=== PATIENT | female | born 1975 | race Caucasian/White ===

== ENCOUNTER → 2017-08-27 12:41 | Outpatient (CLI) | payer OTHER, SELFPAY ==
--- NOTE | 2017-08-27 | US_ITS ---
US kidney retroperitoneal comp HISTORY: ITS.REASON: hypertension ORDERING PHYSICIAN: Smith Santana MD PATIENT AGE: 42 years Comparison: None FINDINGS: RIGHT KIDNEY:Unremarkable. Normal size and echogenicity. No hydronephrosis LEFT KIDNEY:Unremarkable. No hydronephrosis. Normal size and echogenicity. OTHER FINDINGS: No other pertinent findings IMPRESSION: Negative bilateral renal ultrasound
== END ==
PROVIDERS: Family Provider Family Medicine; PCP Family Medicine; Visit Provider Internal Medicine
DX: I10 Essential (primary) hypertension (principal)
CPT/HCPCS: 76770

== ENCOUNTER 2019-10-26 16:51 | Observation (INO) | payer MEDICAID, SELFPAY ==
[2019-10-26 17:19] VITALS: BMI 51.6
[2019-10-26 18:23] VITALS: BP 210/120
[2019-10-26 18:38] LABS: MANUAL DIFFERENTIAL MANUAL DIFFERENTIAL (MANUAL DIFF)
[2019-10-26 18:41] LABS: Basophils % 0.3 % (0.1-2.0); Eosinophils # 0.2 K/mm3 (0.0-0.4); Eosinophils % 2.4 % (0.1-12.0); Hemoglobin 14.1 g/dL (12.2-16.2); Lymphocytes # 1.5 K/mm3 (0.7-4.5); Lymphocytes % 16.8 % (10-50); Mean Corpuscular HGB Conc 34.4 g/dL (31.8-35.4); Mean Corpuscular Hemoglobin 29.4 pg (27.0-31.2); Mean Corpuscular Volume 85.5 fl (81-99); Mean Platelet Volume 7.9 fl (7.4-10.4); Monocytes # 0.3 K/mm3 (0.1-1.0); Monocytes % 3.3 % (1.7-9.3); Neutrophils # 6.7 K/mm3 (1.8-7.8); Platelet Count 246 K/mm3 (142-424); Red Cell Distribution Width 15.2 % (11.5-17.5); White Blood Count 8.7 K/mm3 (4.8-10.8)
[2019-10-26 18:45] LABS: Blood Urea Nitrogen 11 mg/dl (7-17); Calcium 9.5 mg/dl (8.4-10.2); Carbon Dioxide 24 mmol/L (22.0-30.0); Chloride 99 mmol/L (98-107); Creatinine Clearance Estimated 138 mL/min (50-200); Estimated Glomerular Filt Rate 133 ml/min (>60); GFR (African American) 161 ML/MIN (>60); Sodium 136 mmol/L (136-145)
[2019-10-26 19:02] LABS: Glucose 417 mg/dl (74-100)
--- NOTE | 2019-10-26 19:02 | ECG_ITS ---
APPROVED REPORT Exam: Resting ECG HR:99 bpm ECG Measurements Heart Rate 99 AXES MD 162 P 46 QRSd 80 QRS -3 QT 364 T 21 QTc 467 <Conclusion> Normal sinus rhythm Normal ECG Electronically signed by : Jude Betancur, 10/28/2019 06:43:07
[2019-10-26 19:17] LABS: Thyroid Stimulating Hormone 1.19 uIU/mL (0.465-4.68)
[2019-10-26 19:21] LABS: Hemoglobin A1C 10.8 % (4.0-6.0)
[2019-10-26 19:44] VITALS: BP 180/93; PULSE 99; RESP 17; TEMP 37.1; O2SAT 94
[2019-10-26 20:00] VITALS: BP 188/93
[2019-10-26 20:05] LABS: Lymphocytes % 19 % (10-50); Monocytes % 6 % (2-9); Neutrophils % 75 % (42-76); Platelet Estimate Normal; RBC Morphology Normal; Total Cells Counted 100
--- NOTE | 2019-10-26 20:25 | HMH.HP ---
*Admission Date: 10/26/19 *Chief complaint: hypertension with headache *History of present illness: Patient is a 44-year-old white female, well-known to me. She has a longstanding history of diabetes, hypertension. In the office her pressure was 230/120, confirmed on repeat. She had been to an emergency room about a week prior, pressure was in the 230s on that occasion. It is unclear whether she is current with medication refills, certainly several have lapsed including lisinopril and hydralazine. Patient underwent cardiac cath in July 2017. Results are as follows: ANGIOGRAPHIC RESULTS: 1. The left main artery normal 2. The left anterior descending artery normal 3. The circumflex artery dominant normal 4. The right coronary artery nondominant normal 5. The ROSA ventriculogram reveals normal 65% 6. The left ventricular end-diastolic pressure 20 mmHg 7. Right renal artery singular and normal 8. Left renal artery singular and normal IMPRESSION: 1. Normal coronary arteries 2. Normal ejection fraction 3. Elevated LVEDP consistent with diastolic dysfunction and hypertensive heart disease 4. Normal renal arteries Clara reports a dull constant headache, no suggestion of TIA or CVA. Clara also has poorly controlled diabetes, she is somewhat unclear about her insulin regimen. She has been on concentrated insulin in the past, is currently using a basal insulin with episodic bolus coverage. She is following no strict criteria for this. 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 As result of this neuropathy she developed a significant foot ulcer on the left. Became infected and required for IV antibiotics, surgical debridement, amputation of the fifth toe, and a prolonged postoperative course. He remains in a walking boot. [facility] History Medical History: Reports:: Depression, Diabetes Mellitus Type 2, Gastroesophageal Reflux Disease(GERD), Home Oxygen, Hyperlipidemia, Hypertension Denies:: Cancer, Internal Pacemaker, MRSA, Seizures *Have you ever received a pneumonia vaccine?: No *Have you received a flu vaccine this season?: Yes Other Surgeries: Yes: Appendectomy (GB & Appendix), Cardiac Catheterization, Cholecystectomy, (x2), Hernia Repair (x3), Hysterectomy-Total. No: Pacemaker Amputation: No Fractures: Yes - *Social History Smoking Status: Former smoker Tobacco Type: cigars Alcohol Intake: current Alcohol Intake Frequency:: holidays/special occasions only Substance Use Type: denies use *Occupational Status:: disabled Housing: house Household Members: spouse, family *Travel in the last 8 weeks: None - Psychiatric History Pschychiatric History:: Reports:: Depression Family Hx:: Diabetes, Hyperlipidemia Review of Systems - Constitutional Reports fatigue, Reports lack of energy, Reports malaise, Reports weakness, Reports weight gain - Eyes Reports blurry vision, Reports change in vision - ENT Reports poor balance, Reports dizziness, Reports headache(s) - *Cardiovascular Reports shortness of breath with activity, Reports leg swelling, Reports leg sores, Denies chest pain, Denies chest pain at rest - *Respiratory Reports shortness of breath with activity, Denies change in phlegm color, Denies wheezing - *Gastrointestinal Reports abdominal pain, Reports bloating, Reports nausea - *Genitourinary Reports dribbling after urination - *Musculoskeletal Reports abnormal walking, Reports joint swelling, Reports numbness, Reports stiffness - Integumentary/Breasts Reports acne, Reports skin ulcer - *Neurologic Reports seizure-like activity, Reports headache(s), Reports sensory deficit, Reports tingling, Reports weakness, Denies localized weakness - Psychiatric Reports lack of enjoyment, Reports depression, Reports difficulty concentrating, Reports irritability - Endocrine Reports increased thirst Me
[2019-10-26 20:45] VITALS: BP 188/93
--- NOTE | 2019-10-26 20:48 | XR_ITS ---
PROCEDURE: XR FOOT LT MIN 3V CLINICAL INDICATION: evaluate for osteomyelitis Pain and swelling, redness COMPARISON: No exams were available for comparison FINDINGS: Status post amputation at the mid shaft of the 5th metatarsal. There are osteoarthritic changes of the midfoot. Soft tissue swelling is present along the dorsal aspect the foot at the metatarsal region. Other findings:There are no previous exams available comparison. No bony destructive process evident. There is some faint calcification in the amputation bed IMPRESSION: Status post amputation at the 5th metatarsal with degenerative changes and soft tissue swelling. No bony erosive process apparent Dictated b Channing Seymour MD 10/27/2019 07:50 Channing Seymour MD in [place] 10/27/2019 07:50
[2019-10-26 20:50] VITALS: BP 188/93
[2019-10-26 20:53] LABS: POC Glucose,Bedside 382 (70-110)
[2019-10-26 21:50] VITALS: BP 157/99
[2019-10-27] VITALS: BP 156/79; PULSE 77; RESP 16; TEMP 36.9; O2SAT 97
[2019-10-27 04:00] VITALS: BP 139/77; PULSE 74; RESP 16; TEMP 36.8; O2SAT 99
[2019-10-27 05:08] VITALS: BMI 50.8
[2019-10-27 05:53] LABS: POC Glucose,Bedside 389 (70-110)
--- NOTE | 2019-10-27 07:00 | CA_ITS ---
APPROVED REPORT EXAM: Comprehensive 2D, Doppler, and color-flow Echocardiogram Bail Bond Agent: Dottie Sloan RDCS Ht: 5 ft 6 in Wt: 324lbs BSA: 2.46 BP: 188/93 mmHg Indications: HHD,OBESITY,DM,EX SMOKER 2D Dimensions LVOT 1.91 cm (M/F) 1.5-2.5 M-Mode Dimensions RVDd 2.28 cm (0.9-2.6) LVDd 4.79 cm (3.5-5.7) LVDs 3.04 cm (3.5-5.7) IVSd 1.45 cm (0.6-1.1) PWd 1.03 cm (0.6-1.1) EF (Teich) 66.20% FS 36.50% EDV (Teich) 107.00 mL ESV (Teich) 36.20 mL LV Diastology E/A Ratio 1.27 Mitral Valve MV A Velocity 55.00 (40-130 cm/s) Left Ventricle Left atrium is mildly enlarged, left ventricle is normal size, mild concentric left ventricular hypertrophy, visually estimated ejection fraction 55% with no regional wall motion abnormality, grade 1 diastolic dysfunction seen with tissue Doppler evidence of raise left atrial pressure. Right Ventricle Right atrium and right ventricular mildly enlarged with normal contractility. Aortic Valve Aortic valve is minimally thickened and fibrosed, there is no aortic stenosis or aortic insufficiency. Mitral Valve Mitral valve is grossly normal, there is mild mitral regurgitation. Tricuspid Valve Tricuspid valve grossly normal, there is mild tricuspid regurgitation, tricuspid regurgitation jet velocity is inadequate for calculation of the right ventricular systolic pressure. Pulmonic Valve Pulmonic valve is poorly visualized. Great Vessels Aortic root is normal size. Pericardium No significant pericardial effusion noted. Conclusion 1. Mild biatrial enlargement, normal left ventricular size, mild concentric left ventricular hypertrophy, visually estimated ejection fraction 55% with no regional wall motion abnormality, grade 1 diastolic dysfunction seen with tissue Doppler evidence of raise left atrial pressure. 2. Mildly enlarged right ventricle with normal contractility. 3. Mild mitral and tricuspid regurgitation. 4. No significant pericardial effusion noted. Electronically signed by : Dario Chen, 10/27/2019 16:17:43
[2019-10-27 07:01] LABS: Chloride 99 mmol/L (98-107); Potassium 3.6 mmoL/L (3.5-5.1); Sodium 136 mmol/L (136-145)
[2019-10-27 07:03] LABS: Blood Urea Nitrogen 14 mg/dl (7-17); Creatinine Clearance Estimated 133 mL/min (50-200); Estimated Glomerular Filt Rate 133 ml/min (>60); GFR (African American) 161 ML/MIN (>60)
[2019-10-27 07:04] LABS: Anion Gap 14.6 mEq/L (5-15); Calcium 8.8 mg/dl (8.4-10.2); Carbon Dioxide 26 mmol/L (22.0-30.0); Cholesterol 136 mg/dl (140-200); Glucose 396 mg/dl (74-100); Magnesium 1.8 mg/dl (1.6-2.3); Triglycerides 173 mg/dl (30-150); VLDL Cholesterol 35 mg/dL (0-40)
[2019-10-27 07:05] LABS: Chol/HDL Ratio 3.4 (1-3.5); HDL Cholesterol 40 mg/dl (40-60)
[2019-10-27 07:15] LABS: Direct LDL Cholesterol 62.97 mg/dL (100-129)
--- NOTE | 2019-10-27 07:26 | P.CONPHA_ITS ---
[facility] Pharmacy VTE Monitoring - Patient Demographics Admission date: 10/26/19 Report Date: 10/27/19 Time: 07:26 Allergies/Adverse Reactions: Patient Allergies No Known Allergies Allergy (Verified 10/26/19 15:21) Height: 1.7 m Weight: 146.964 kg Patient Problems: Current Active Problems Hypertensive urgency (Acute) Edema (Acute) - VTE Risk Labs: VTE Related Lab Results Hgb 14.1 g/dL (12.2-16.2) 10/26/19 18:28 Hct 41.0 % (37.0-47.0) 10/26/19 18:28 Plt Count 246 K/mm3 (142-424) 10/26/19 18:28 BUN 14 mg/dl (7-17) D 10/27/19 06:45 Creatinine 0.50 mg/dl (0.52-1.04) L 10/27/19 06:45 Estimated Creat Clear 133 mL/min (50-200) 10/27/19 06:45 Was VTE Risk Assessment Performed: Yes VTE Score: 7 VTE Risk Level: Moderate Risk Clinical Trial Participant: No - Prophylaxis VTE Prophylaxis Ordered?: Yes Types of VTE Prophylaxis: TEDS Knee High
[2019-10-27 07:43] VITALS: BP 149/69; PULSE 78; RESP 22; TEMP 36.8; O2SAT 98
[2019-10-27 11:21] VITALS: BP 199/86; PULSE 89; RESP 22; TEMP 36.9; O2SAT 99
[2019-10-27 11:47] LABS: POC Glucose,Bedside 460 (70-110)
--- NOTE | 2019-10-27 13:48 | HMH.DCSUM ---
General - General Admission date:: 10/26/19 Discharge date: 10/27/19 HPI HPI: Patient is a 44-year-old white female, well-known to me. She has a longstanding history of diabetes, hypertension. In the office her pressure was 230/120, confirmed on repeat. She had been to an emergency room about a week prior, pressure was in the 230s on that occasion. It is unclear whether she is current with medication refills, certainly several have lapsed including lisinopril and hydralazine. Patient underwent cardiac cath in July 2017. Results are as follows: ANGIOGRAPHIC RESULTS: 1. The left main artery normal 2. The left anterior descending artery normal 3. The circumflex artery dominant normal 4. The right coronary artery nondominant normal 5. The ROSA ventriculogram reveals normal 65% 6. The left ventricular end-diastolic pressure 20 mmHg 7. Right renal artery singular and normal 8. Left renal artery singular and normal IMPRESSION: 1. Normal coronary arteries 2. Normal ejection fraction 3. Elevated LVEDP consistent with diastolic dysfunction and hypertensive heart disease 4. Normal renal arteries Clara reports a dull constant headache, no suggestion of TIA or CVA. Clara also has poorly controlled diabetes, she is somewhat unclear about her insulin regimen. She has been on concentrated insulin in the past, is currently using a basal insulin with episodic bolus coverage. She is following no strict criteria for this. 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 As result of this neuropathy she developed a significant foot ulcer on the left. Became infected and required for IV antibiotics, surgical debridement, amputation of the fifth toe, and a prolonged postoperative course. He remains in a walking boot. Hospital Course Hospital Course: Patient was admitted with a markedly elevated pressure, systolic was 230s in the office. She received sequential doses of IV labetalol 20 mg with acceptable pressures resulting. She tolerated this well. She was covered with high intensity sliding scale insulin. We had reinstituted her basal insulin. She underwent cardiac echo, the image quality was poor due to her habitus. She had previously undergone cardiac cath and runoff of the renal arteries in 2018. This data from Dr. Santana was reviewed. She had an x-ray of her left foot. There is no evidence of osteomyelitis. She had some peripheral edema, no suggestion of pulmonary edema. She received 1 dose of IV Lasix with a good urine output. Objective Vital signs: Temp Pulse Resp BP Pulse Ox 98.4 F 89 22 199/86 H 99 10/27/19 11:21 10/27/19 11:21 10/27/19 11:21 10/27/19 11:21 10/27/19 11:21 no acute distress, morbidly obese, chronically ill appearing - *Routine HEENT Exam Head: Present: normocephalic, atraumatic Eye: Present: EOMI, PERRL - *Routine Neck Exam Present: supple, full ROM. Absent: JVD - *Routine Respiratory Exam Present: CTA bilaterally. Absent: accessory muscle use, respiratory distress, rhonchi, wheezes, crackles - *Routine Cardiovascular Exam Present: RRR, Normal S1, Normal S2. Absent: murmur - *Routine Abdominal Exam Present: soft, normoactive bowel sounds, tenderness, obese, hernia, surgical scars. Absent: guarding - *Routine Extremities Exam Present: edema, pulses intact. Absent: cyanosis, clubbing, calf tenderness, palpable cord - *Routine Skin Exam Present: intact. Absent: cyanosis, jaundice, gangrene - *Routine Neurological Exam Present: alert, oriented X3, moving all extremities. Absent: motor deficit, altered mental status - Routine Psychiatric Exam Present: normal affect, cooperative Results Labs on day of discharge: Labs from last 24 hours 10/27/19 10/27/19 10/27/19 11:37 06:45 05:45 WBC RBC Hgb Hct MCV MCH MCHC RD
--- NOTE | 2019-10-27 13:53 | SW/DCPLANNER ---
Addendum entered by Constanza Loaiza 10/27/19 15:46: Emily with [facility] has received referral and called me stating they discharged this patient on 07/22/2019 and they will no longer be able to accept this patient due to the level of care needed. I did explain to Emily that [facility] could not accept due to insurance and Emily again stated they could not accept this patient. I have two voicemails left with [facility] regarding in home services provided. Dr Dean has stated that [facility] provides services to patients for medical management and follow up. I will continue to follow up with [facility] regarding services and if patient is a candidate I will make sure she is established with program. Patient is aware of plan. Placement and outpatient PT services were offered to this patient and refused at this time. Patient will discharge home today. Addendum entered by Constanza Loaiza 10/27/19 14:52: Thomas with [facility] has called me back stating they do not accept this patients insurance. Patient information has now been faxed to [facility]. Original Note: I have spoke with this patient regarding discharge plans. Patient stated that she resides at home with her , daughter and future son in law. Patient stated that she does fairly well at home but does require a walker at home. Patient has a walker and BSC at home. Patient has requested home health services. Patient understands that she must be homebound for these services. Patient stated that she prefers [facility]. Patient information and order will be faxed to [facility]. Patient will discharge later today.
[2019-10-27 14:09] LABS: POC Glucose,Bedside 394 (70-110)
--- NOTE | 2019-10-27 16:17 | HMH.PHAINT ---
DISCHARGE COUNSELING COMPLETED ON PATIENT. NEW PRESCRIPTIONS INCLUDE AMLODIPINE/BENAZEPRIL, TRULICITY, HYDRALAZINE, LANTUS FLEXPEN, AND HYDROCHLOROTHIAZIDE. NEW PRESCRIPTIONS WERE SENT TO [facility]. PATIENT IS TO CONTINUE ALL OTHER HOME MEDICATIONS WITH THE EXCEPTION OF DOXYCYCLINE AND HUMALOG. PATIENT VERBALIZED UNDERSTANDING AND HAD NO QUESTIONS AT THIS TIME. -GIOVANI KOROMA, LUISD
--- NOTE | 2019-10-27 16:49 | PC.NURSE ---
PATIENT A&O X4, LUNGS CLEAR. THIS RN PHONED DR. GONZALEZ TO INFORM HIM OF PATIENTS FSBS AT 460. MD ORDERED 30 UNITS OF INSULIN AND REPEAT FSBS IN 2HRS. NEXT FSBS WAS 394. THIS RN PHONED OFFICE AND REPORTED FINDINGS. NO NEW ORDERS. NO NEW CONCERNS AT THIS TIME.
--- NOTE | 2019-10-28 08:58 | SW/DCPLANNER ---
SPOKE WITH MARY PIMENTEL WITH [facility] THIS MORNING A COUPLE OF TIMES REGARDING A REFERRAL FOR THIS PATIENT: SHE HAS REQUESTED INFORMATION TO BE FAXED SO THEY CAN SEE IF SHE IS A CANDIDATE FOR HOSPICE SERVICES....SHE HAS HAD HOME HEALTH SERVICES BUT HAS BEEN D/C'D AND NOT GOING TO BE READMITTED R/T LEVEL OF CARE.... I HAD A CONVERSATION THIS MORNING WITH DR GONZALEZ AND EXPLAINED TO HIM THAT HOSPICE IS NOT SURE THEY ARE GOING TO BE ABLE TO PICK HER UP EITHER BUT WILL REVIEW HER INFORMATION AND LET ME KNOW... HOSPICE REFERRAL WAS MADE ON HER WHEN SHE LIVED IN [place] BUT WHEN THEY WENT TO EVALUATE AND ADMIT SHE MET THEM AND TOLD THEM SHE DID NOT NEED THEIR SERVICES AT THIS TIME.. WILL LET DR GONZALEZ KNOW ONCE I HEAR BACK FROM [place] TO WHETHER OR NOT THE WILL ACCEPT HER...
[2019-10-29 08:56] LABS: Lithium (Eskalith(R)) <0.1 mmol/L (0.6-1.2)
== END 2019-10-27 16:24 | disposition home or self-care (01) ==
PROVIDERS: Admitting Provider Family Medicine; PCP Family Medicine; Visit Provider Family Medicine
DX: I16.0 Hypertensive urgency (principal); E11.65 Type 2 diabetes mellitus with hyperglycemia; E66.01 Morbid (severe) obesity due to excess calories; Z68.43 Body mass index [BMI] 50.0-59.9, adult; Z79.4 Long term (current) use of insulin; E11.42 Type 2 diabetes mellitus with diabetic polyneuropathy
CPT/HCPCS: 36415; 73630; 80048; 80061; 80178; 82962; 83036; 83735; 84443; 85007; 85014; 85018; 85048; 85049; 93005; 93306; G0378; J2405

== ENCOUNTER → 2019-12-07 09:37 | Outpatient (CLI) | payer MEDICAID, SELFPAY ==
[2019-12-07 10:32] LABS: Chloride 99 mmol/L (98-107); Sodium 138 mmol/L (136-145)
[2019-12-07 10:33] LABS: Potassium 4.7 mmoL/L (3.5-5.1)
[2019-12-07 10:36] LABS: Anion Gap 16.7 mEq/L (5-15); Blood Urea Nitrogen 13 mg/dl (7-17); Calcium 9.8 mg/dl (8.4-10.2); Carbon Dioxide 27 mmol/L (22.0-30.0); Estimated Glomerular Filt Rate 108 ml/min (>60); GFR (African American) 131 ML/MIN (>60); Glucose 325 mg/dl (74-100)
[2019-12-07 10:44] LABS: NT Pro Brain Natriuretic Pep. 117 pg/mL (0-125)
== END ==
PROVIDERS: Visit Provider Nurse Practitioner Family
DX: R06.01 Orthopnea (principal); R60.9 Edema, unspecified; E11.9 Type 2 diabetes mellitus without complications; E66.01 Morbid (severe) obesity due to excess calories; E78.5 Hyperlipidemia, unspecified; I11.9 Hypertensive heart disease without heart failure; I51.89 Other ill-defined heart diseases; Z72.0 Tobacco use
CPT/HCPCS: 36415; 80048; 83880

== ENCOUNTER → 2019-12-19 09:28 | Outpatient (CLI) | payer MEDICAID, SELFPAY | PROVIDERS: PCP Family Medicine; Visit Provider Urology | DX: G47.33 Obstructive sleep apnea (adult) (pediatric) (principal); R06.83 Snoring; R40.0 Somnolence; R53.83 Other fatigue | CPT/HCPCS: G0399 ==

== ENCOUNTER 2019-12-24 21:51 | Emergency (ER) | payer MEDICAID, SELFPAY ==
[2019-12-24 22:09] VITALS: BP 206/86; PULSE 85; RESP 16; TEMP 36.7; O2SAT 100; BMI 47.0
[2019-12-24 22:16] LABS: Microscopic, Urine URINE MICROSCOPIC (MICROSCOPIC)
[2019-12-24 22:18] LABS: Appearance,Urine TURBID (Clear); Bilirubin,Urine Negative (Negative); Blood, Urine 3+ (Negative); Glucose,Urine (UA) 3+ (Negative); Ketones,Urine Negative (Negative); Leukocyte Esterase,Urine TRACE (Negative); Nitrate,Urine POSITIVE (Negative); Protein,Urine 2+ (Negative); Specific Gravity, Urine 1.025 (1.005-1.030); Urobilinogen,Urine 0.2 EU/dl (0.2)
[2019-12-24 22:20] LABS: Color,Urine Amber (Yellow)
[2019-12-24 22:43] LABS: POC Glucose,Bedside 349 (70-110)
[2019-12-24 23:04] LABS: Bacteria,Urine 1+ /lpf; Mucus,Urine 1+ /lpf
[2019-12-24 23:40] VITALS: BP 178/89; PULSE 86; RESP 17; TEMP 36.7; O2SAT 100
--- NOTE | 2019-12-25 00:35 | HMH.EDGENADL ---
ED Disposition Clinical Impression: Urinary tract infection Qualifiers: Urinary tract infection type: acute cystitis Hematuria presence: with hematuria Qualified Code(s): N30.01 - Acute cystitis with hematuria Disposition: Home, Self-Care Condition on Discharge: Good Instructions: Urinary Tract Infection Prescriptions: Nitrofurantoin Monohyd/M-Cryst [Macrobid 100 mg Capsule] 100 mg PO BID #14 cap Prescription Printed Referrals: Carlos Dean MD [Primary Care Provider] - - Critical Care Critical Care Time: No Attestation: On 12/24/19, the high probability of a clinically significant, sudden or life threatening deterioration of the following system(s) required my full and direct attention, intervention and personal management. The time I documented below is in addition to time spent performing reported procedures but includes the following listed in this critical care notation. Medical Decision Making - Goyo Inquiry Pt receiving controlled substance: No Vital Signs: 12/24/19 22:09 12/24/19 23:40 Temperature 98.1 F 98.1 F Temperature Source Oral Oral Pulse Rate 86 Pulse Rate [Right] 85 Respiratory Rate 16 17 Blood Pressure 178/89 H Blood Pressure [Right Arm] 206/86 H Blood Pressure Mean [Right Arm] 126 Blood Pressure Source Automatic Cuff Blood Pressure Source [Right Arm] Automatic Cuff Blood Pressure Position Sitting Blood Pressure Position [Right Arm] Sitting 02 Sat by Pulse Oximetry 100 Oxygen Delivery Method Room Air Room Air - Lab Data Lab Results 12/24/19 22:04: Urine Color Elise, Urine Appearance Turbid, Urine pH 6.0, Ur Specific Elgin 1.025, Urine Protein 2+, Urine Glucose (UA) 3+, Urine Ketones Negative, Urine Blood 3+, Urine Nitrate Positive, Urine Bilirubin Negative, Urine Urobilinogen 0.2, Ur Leukocyte Esterase Trace, Urine RBC 10-20, Urine WBC 3-5, Ur Squamous Epith Cells 3-5, Urine Bacteria 1+, Urine Mucus 1+ 12/24/19 22:26: POC Glucose 349 H* Orders (Tests/Meds): ED MEDICATIONS Discontinued Medications Generic Name Dose Route Start Last Admin Trade Name Freq PRN Reason Stop Dose Admin Nitrofurantoin Macrocrystals 100 mg 12/24/19 23:22 12/24/19 23:33 Nitrofurantoin 100mg Capsule PO 12/24/19 23:23 100 mg ONCE ONE Administration Medical Decision Narrative: Patient presents with dysuria and hematuria. Patient hemodynamically stable on exam. She is hypertensive to SBP to 206 initially but is asymptomatic. This improved to SBPs in the 160s without intervention. Benign abdomen. POC glucose in 300s which is consistent with her baseline per patient. UA consistent with infection as is her symptoms. Given 100 mg macrobid PO and will discharge with prescription for acute uncomplicated UTI with hematuria. General Adult HPI - General Chief complaint: Urogenital-Female Stated complaint: blood in urine Time Seen by Provider: 12/24/19 22:09 Mode of Arrival: Ambulatory Limitations: No Limitations Description of Symptoms (Recalled from ER Triage Doc. by RN): pt states she noticed blood in her urine today with pressure with urination - History of Present Illness HPI narrative: Patient is a 44 year old female who presents with suprapubic pain, dysuria and hematuria for 1 day. No other abdominal pain. Never has had a UTI. no vaginal bleeding or discharge. No N/V/D. No flank pain or back pain, no fever. - Related Data Home Medications Medication Instructions Recorded Confirmed Venlafaxine HCl [Venlafaxine HCl 150 mg PO DAILY 10/27/19 12/07/19 ER] doxycycline monohydrate 100 mg 100 mg PO cap 11/05/19 12/07/19 capsule blood sugar diagnostic See Rx Instructions .ROUTE 12/07/19 12/07/19 .MEDSUPPLY #10 each hydrochlorothiazide 12.5 mg capsule 12.5 mg PO DAILY cap 12/07/19 12/07/19 Previous Rx's Medication Instructions Recorded Amlodipine Besylate/Benazepril 1 cap PO DAILY 30 Days #30 cap 10/27/19 [Amlodipine-Benazepril 10-40 mg]
== END 2019-12-24 23:43 | disposition home or self-care (01) ==
PROVIDERS: Emergency Provider Emergency Medicine; PCP Family Medicine
DX: N30.01 Acute cystitis with hematuria (principal); K21.9 Gastro-esophageal reflux disease without esophagitis; I10 Essential (primary) hypertension; E78.5 Hyperlipidemia, unspecified; G40.909 Epilepsy, unspecified, not intractable, without status epilepticus; Z90.49 Acquired absence of other specified parts of digestive tract; Z79.899 Other long term (current) drug therapy
CPT/HCPCS: 81001; 82962; 99282

== ENCOUNTER → 2020-02-01 19:08 | Outpatient (CLI) | payer MEDICAID, SELFPAY ==
[2020-02-01 19:18] LABS: Basophils % 0.5 % (0.1-2.0); Eosinophils # 0.3 K/mm3 (0.0-0.4); Eosinophils % 3.5 % (0.1-12.0); Hematocrit 41.6 % (37.0-47.0); Hemoglobin 13.5 g/dL (12.2-16.2); Lymphocytes # 1.4 K/mm3 (0.7-4.5); Lymphocytes % 17.2 % (10-50); Mean Corpuscular HGB Conc 32.4 g/dL (31.8-35.4); Mean Corpuscular Volume 89.7 fl (81-99); Mean Platelet Volume 9.5 fl (7.4-10.4); Monocytes # 0.4 K/mm3 (0.1-1.0); Monocytes % 4.9 % (1.7-9.3); Platelet Count 315 K/mm3 (142-424); Red Blood Count 4.64 M/mm3 (4.20-5.40); Red Cell Distribution Width 15.1 % (11.5-17.5); White Blood Count 8.1 K/mm3 (4.8-10.8)
[2020-02-01 19:41] LABS: Alanine Aminotransferase 28 U/L (12-78); Albumin Level 4.1 g/dl (3.5-5.0); Albumin/Globulin Ratio 1.2 (1.1-1.8); Alkaline Phosphatase 111 U/L (38-126); Anion Gap 13.1 mEq/L (5-15); Aspartate Amino Transferase 27 U/L (14-36); Bilirubin,Total 0.8 mg/dl (0.2-1.3); Blood Urea Nitrogen 11 mg/dl (7-17); Calcium 9.6 mg/dl (8.4-10.2); Carbon Dioxide 30 mmol/L (22.0-30.0); Chloride 96 mmol/L (98-107); Chol/HDL Ratio 3.4 (1-3.5); Cholesterol 166 mg/dl (140-200); Estimated Glomerular Filt Rate 108 ml/min (>60); GFR (African American) 131 ML/MIN (>60); Globulin 3.3 g/dL (1.3-3.2); Glucose 380 mg/dl (74-100); HDL Cholesterol 49 mg/dl (40-60); Potassium 4.1 mmoL/L (3.5-5.1); Sodium 135 mmol/L (136-145); Total Protein,Serum 7.4 g/dl (6.3-8.2); Triglycerides 329 mg/dl (30-150); VLDL Cholesterol 66 mg/dL (0-40)
[2020-02-01 19:52] LABS: Direct LDL Cholesterol 81.53 mg/dL (100-129)
[2020-02-01 19:56] LABS: Microalbumin/Creatinine Ratio 90.7
[2020-02-01 19:59] LABS: T4 (Thyroxine) 12.4 ug/dl (5.53-11.0)
[2020-02-01 20:05] LABS: Creatinine,Urine Random 76 mg/dL (Not Estab.); Hemoglobin A1C 10.4 % (4.0-6.0)
[2020-02-01 20:06] LABS: 25-OH Vitamin D, Total < 12.8 ng/mL (30-100)
[2020-02-01 20:13] LABS: Thyroid Stimulating Hormone 2.45 uIU/mL (0.465-4.68)
== END ==
PROVIDERS: Visit Provider Family Medicine
DX: E11.9 Type 2 diabetes mellitus without complications (principal); E55.9 Vitamin D deficiency, unspecified; Z79.899 Other long term (current) drug therapy
CPT/HCPCS: 80053; 80061; 82043; 82306; 82570; 83036; 84436; 84443; 85025

== ENCOUNTER 2020-02-08 14:08 | Emergency (ER) | payer MEDICAID, SELFPAY ==
[2020-02-08 14:12] VITALS: BP 179/79; PULSE 94; RESP 18; TEMP 36.9; O2SAT 98; BMI 50.8
--- NOTE | 2020-02-08 14:28 | CT_ITS ---
PROCEDURE: CT ABDOMEN PELVIS W CON CLINICAL INDICATION: lower abd pain Hematuria with lower abdominal pain COMPARISON: No exams were available for comparison TECHNIQUE: IV Contrast: 75ML Isovue 370 Oral Contrast None Axial images obtained with sagittal and coronal reformats. All CT scans at the facility use one or more dose reduction, viz: automated exposure control, ma/kV adjustment per patient size (including targeted exams where dose is matched to indication, i.e. head), or iterative reconstruction technique. FINDINGS: LOWER THORAX: No acute finding ABDOMEN & PELVIS: Mild fatty liver. Prior cholecystectomy. No focal liver lesion. The spleen and adrenal glands have an unremarkable appearance. There is a small calcific focus in the pancreatic head. This is along the anterior aspect of the common bile duct area. No pancreatic mass or peripancreatic inflammatory change evident. There are few small portal and peripancreatic lymph nodes. No renal or ureteral calculi. 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 No hydronephrosis. There is a small ventral abdominal wall hernia which is 7.7 cm superior to the level of the expected area of the umbilicus. This contains a loop of small bowel without evidence of bowel obstruction. There has been a prior appendectomy. There has been a prior hysterectomy. There are postsurgical changes of the anterior abdominal wall. There are scattered colonic diverticula but no evidence of diverticulitis. There is some minimal stranding of the fat in the pericolic region in the left lower quadrant which could be due to prior episode of epiploic appendagitis. No acute bony findings. IMPRESSION: 1. No definite acute abdominal or pelvic findings. 2. There is a small calcific focus in the pancreatic head in the region of the common bile duct. This could be related to an adjacent pancreatic parenchymal calcification or small stone in the common bile duct. Nonemergent MRCP may provide further evaluation if clinically warranted 3. Colonic diverticulosis without diverticulitis. 4. Small ventral abdominal wall hernia in the supraumbilical region containing a loop of small bowel without evidence of bowel obstruction. Dictated by: Channing Seymour MD 02/08/2020 15:34 Channing Seymour MD in [place] 02/08/2020 15:34
[2020-02-08 14:40] LABS: Microscopic, Urine URINE MICROSCOPIC (MICROSCOPIC)
[2020-02-08 14:42] LABS: Appearance,Urine SL CLOUDY (Clear); Bilirubin,Urine Negative (Negative); Blood, Urine 3+ (Negative); Color,Urine YELLOW (Yellow); Glucose,Urine (UA) 1+ (Negative); Ketones,Urine TRACE (Negative); Leukocyte Esterase,Urine 1+ (Negative); Nitrate,Urine POSITIVE (Negative); PH,Urine 5.5 (5.0-8.5); Protein,Urine 1+ (Negative); Specific Gravity, Urine >= 1.030 (1.005-1.030); Urobilinogen,Urine 0.2 EU/dl (0.2)
[2020-02-08 14:45] LABS: Urine Pregnancy, HCG Qual. Negative (Negative)
[2020-02-08 14:52] LABS: Bacteria,Urine 1+ /lpf; Squamous Epithelial Cell,Urine Occasional #/hpf (0-5)
[2020-02-08 15:03] LABS: Basophils % 0.5 % (0.1-2.0); Eosinophils # 0.3 K/mm3 (0.0-0.4); Eosinophils % 3.1 % (0.1-12.0); Hematocrit 44.1 % (37.0-47.0); Hemoglobin 14.5 g/dL (12.2-16.2); Lymphocytes # 1.4 K/mm3 (0.7-4.5); Lymphocytes % 15.1 % (10-50); Mean Corpuscular HGB Conc 32.8 g/dL (31.8-35.4); Mean Corpuscular Hemoglobin 28.6 pg (27.0-31.2); Mean Corpuscular Volume 87.1 fl (81-99); Mean Platelet Volume 7.6 fl (7.4-10.4); Monocytes # 0.3 K/mm3 (0.1-1.0); Monocytes % 3.1 % (1.7-9.3); Neutrophils # 7.4 K/mm3 (1.8-7.8); Neutrophils % 78.2 % (37.0-80.0); Platelet Count 293 K/mm3 (142-424); Red Blood Count 5.07 M/mm3 (4.20-5.40); White Blood Count 9.5 K/mm3 (4.8-10.8)
[2020-02-08 15:10] LABS: Potassium 3.8 mmoL/L (3.5-5.1); Sodium 137 mmol/L (136-145)
[2020-02-08 15:12] LABS: Chloride 100 mmol/L (98-107)
[2020-02-08 15:13] LABS: Alanine Aminotransferase 41 U/L (12-78); Alkaline Phosphatase 87 U/L (38-126); Amylase 54 U/L (30-110); Anion Gap 14.8 mEq/L (5-15); Aspartate Amino Transferase 47 U/L (14-36); Bilirubin,Total 1.4 mg/dl (0.2-1.3); Blood Urea Nitrogen 12 mg/dl (7-17); Calcium 9.3 mg/dl (8.4-10.2); Carbon Dioxide 26 mmol/L (22.0-30.0); Creatinine Clearance Estimated 138 mL/min (50-200); Estimated Glomerular Filt Rate 133 ml/min (>60); GFR (African American) 161 ML/MIN (>60); Glucose 263 mg/dl (74-100)
[2020-02-08 15:14] LABS: Albumin Level 4.3 g/dl (3.5-5.0); Albumin/Globulin Ratio 1.1 (1.1-1.8); Globulin 3.8 g/dL (1.3-3.2); Lipase 101 U/L (23-300); Total Protein,Serum 8.1 g/dl (6.3-8.2)
[2020-02-08 15:29] VITALS: BP 176/100; PULSE 76; O2SAT 99
[2020-02-08 15:30] VITALS: BP 174/100; PULSE 79; O2SAT 100
--- NOTE | 2020-02-08 15:37 | HMH.EDABDPAI ---
ED Disposition Clinical Impression: UTI (urinary tract infection) Qualifiers: Urinary tract infection type: acute pyelonephritis Qualified Code(s): N10 - Acute pyelonephritis Disposition: Home, Self-Care Condition on Discharge: Fair Instructions: DI for Kidney Infection Additional Instructions: Your labs and find that you have a urinary tract infection we are providing an antibiotic for the same CT of the abdomen and pelvis showed no acute findings labs were within essentially within normal limits with a blood sugar of 263 Prescriptions: Sulfamethoxazole/Trimethoprim [Bactrim DS tablet] 1 each PO BID 7 Days #14 tab Transmission Status: Pending to [facility] Ondansetron [Zofran 4mg ODT] 4 mg PO Q6 PRN 10 Days #14 tab.rapdis PRN Reason: Nausea Transmission Status: Pending to [facility] Referrals: Carlos Dean MD [Primary Care Provider] - Time of Disposition: 16:17 - Critical Care Critical Care Time: No Attestation: On 02/08/20, the high probability of a clinically significant, sudden or life threatening deterioration of the following system(s) required my full and direct attention, intervention and personal management. The time I documented below is in addition to time spent performing reported procedures but includes the following listed in this critical care notation. Medical Decision Making - Medical Records Medical records reviewed: Yes: I reviewed the patient's medical records. MR Comment: 44-year-old female here with a complaint of abdominal pain, history of diabetes and is moderately obese pt reports urinating blood for approx 1 week, pt reports lower abd pain for 2 days. Pt reports she saw her PCP approx 1 week ago, had blood work, states she spoke with PCP office today concerning her blood work states she was told her come to ER for further evaluation. Patient of labs shows findings CBC CMP are essentially within normal limits however urine analysis shows UTI plan is to give patient a prescription for Bactrim DS and advise follow-up as needed - Goyo Inquiry Pt receiving controlled substance: No Vital Signs: 02/08/20 14:12 02/08/20 15:29 02/08/20 15:30 Temperature 98.4 F Temperature Source Oral Pulse Rate [Right Radial] 94 H 76 79 Respiratory Rate 18 Blood Pressure [Right Arm] 179/79 H 176/100 H 174/100 H Blood Pressure Mean [Right Arm] 112 125 124 Blood Pressure Source [Right Arm] Automatic Cuff Automatic Cuff Automatic Cuff Blood Pressure Position [Right Arm] Sitting Sitting Sitting 02 Sat by Pulse Oximetry 98 99 100 Oxygen Delivery Method Room Air Room Air Room Air 02/08/20 16:00 Temperature Temperature Source Pulse Rate [Right Radial] 85 Respiratory Rate Blood Pressure [Right Arm] 169/88 H Blood Pressure Mean [Right Arm] 115 Blood Pressure Source [Right Arm] Automatic Cuff Blood Pressure Position [Right Arm] Sitting 02 Sat by Pulse Oximetry 98 Oxygen Delivery Method Room Air - Lab Data Lab results reviewed: Yes: I reviewed the patient's lab results. Lab Results 02/08/20 14:32: Urine Color Yellow, Urine Appearance Sl cloudy, Urine pH 5.5, Ur Specific [place] >= 1.030, Urine Protein 1+, Urine Glucose (UA) 1+, Urine Ketones Trace, Urine Blood 3+, Urine Nitrate Positive, Urine Bilirubin Negative, Urine Urobilinogen 0.2, Ur Leukocyte Esterase 1+ A, Urine RBC 5-10, Urine WBC 5-10, Ur Squamous Epith Cells Occasional, Urine Bacteria 1+ 02/08/20 14:32: Urine HCG, Qual Negative 02/08/20 14:55: WBC 9.5, RBC 5.07, Hgb 14.5, Hct 44.1, MCV 87.1, MCH 28.6, MCHC 32.8, RDW 15.0, Plt Count 293, MPV 7.6, Neut % (Auto) 78.2, Lymph % (Auto) 15.1, [place] % (Auto) 3.1, Eos % (Auto) 3.1, Baso % (Auto) 0.5, Neut # (Auto) 7.4, Lymph # (Auto) 1.4, [place] # (Auto) 0.3, Eos # (Auto) 0.3, Baso # (Auto) 0.0 02/08/20 14:55: Sodium 137, Potassium 3.8, Chloride 100, Carbon Dioxide 26, Anion Gap 14.8, BUN 12, Creatinine 0.50 L, Estimated Creat Clear 138, Estimated GFR 133, Est GFR ( Amer)
[2020-02-08 16:00] VITALS: BP 169/88; PULSE 85; O2SAT 98
[2020-02-08 16:43] VITALS: BP 142/86; PULSE 78; RESP 18; TEMP 36.6; O2SAT 98
== END 2020-02-08 16:44 | disposition home or self-care (01) ==
PROVIDERS: Emergency Provider Emergency Medicine; PCP Family Medicine
DX: N10 Acute pyelonephritis (principal); E11.65 Type 2 diabetes mellitus with hyperglycemia; K21.9 Gastro-esophageal reflux disease without esophagitis; E78.5 Hyperlipidemia, unspecified; I10 Essential (primary) hypertension; F33.1 Major depressive disorder, recurrent, moderate; Z79.899 Other long term (current) drug therapy; F17.210 Nicotine dependence, cigarettes, uncomplicated
CPT/HCPCS: 74177; 80053; 81001; 81025; 82150; 83690; 85025; 87086; 87088; 87186; 99283; Q9967

== ENCOUNTER → 2020-05-02 13:53 | Outpatient (CLI) | payer MEDICAID, SELFPAY ==
[2020-05-02 14:16] LABS: Alanine Aminotransferase 30 U/L (12-78); Albumin/Globulin Ratio 1.2 (1.1-1.8); Alkaline Phosphatase 80 U/L (38-126); Anion Gap 12.7 mEq/L (5-15); Aspartate Amino Transferase 24 U/L (14-36); Bilirubin,Total 1.1 mg/dl (0.2-1.3); Blood Urea Nitrogen 9 mg/dl (7-17); Calcium 9.2 mg/dl (8.4-10.2); Carbon Dioxide 27 mmol/L (22.0-30.0); Chloride 100 mmol/L (98-107); Estimated Glomerular Filt Rate 133 ml/min (>60); GFR (African American) 161 ML/MIN (>60); Globulin 3.3 g/dL (1.3-3.2); Glucose 369 mg/dl (74-100); Potassium 4.7 mmoL/L (3.5-5.1); Sodium 135 mmol/L (136-145); Total Protein,Serum 7.3 g/dl (6.3-8.2)
[2020-05-02 14:20] LABS: Hemoglobin A1C 10.7 % (4.0-6.0)
== END ==
PROVIDERS: Visit Provider Family Medicine
DX: E11.9 Type 2 diabetes mellitus without complications (principal); Z79.4 Long term (current) use of insulin
CPT/HCPCS: 80053; 83036

== ENCOUNTER 2020-05-31 11:05 | Inpatient (IN) | payer MEDICAID, SELFPAY ==
[2020-05-31] VITALS (11 sets, daily range): BP systolic 140–198; BP diastolic 67–92; PULSE 110–124; RESP 18–24; TEMP 36.6–37.2; O2SAT 93–99; BMI 48.9; BMI 47.9
--- NOTE | 2020-05-31 11:43 | CT_ITS ---
PROCEDURE: CT ABDOMEN PELVIS W CON CLINICAL INDICATION: abdominal pain COMPARISON: CT CT ABDOMEN PELVIS W CON from 02/08/2020 TECHNIQUE: IV Contrast: 75ML OPTIRAY 350 Oral Contrast none given Axial images obtained with sagittal and coronal reformats. All CT scans at the facility use one or more dose reduction, viz: automated exposure control, ma/kV adjustment per patient size (including targeted exams where dose is matched to indication, i.e. head), or iterative reconstruction technique. FINDINGS: Lower thorax: The lower lung barnett are clear and there is no pleural fluid. Cardiac size is normal. ABDOMEN: Liver: The liver is normal in size and there is mild diffuse hepatic steatosis. There are no focal lesions. Gallbladder: Post cholecystectomy Pancreas: Again noted is a tiny calcification within the pancreatic head, pancreas is otherwise unremarkable Spleen: unremarkable Adrenals: unremarkable Kidneys/ureters: Kidneys are normal in size and show symmetrical function. There is a tiny fat density lesion superior pole right kidney as noted previously possibly a small angiomyolipoma. There is no obstructive uropathy of either kidney. ABDOMEN & PELVIS: Stomach bowel: There is a small hiatal hernia. The stomach is mildly distended with ingested fluid and food particles. There is mild dilatation of the duodenal sweep but this was seen previously as well. There are mildly dilated fluid-filled loops of proximal and mid small bowel and likely reflecting some degree of gastroenteritis in view of the mildly dilated fluid-filled stomach as well. There is scattered stool and gas seen throughout the colon. There are couple diverticuli of the cecum and lower ascending colon. Peritoneum: There is a tiny ventral hernia approximately 7 cm above the umbilicus containing a small portion of a nondilated loop of small bowel and mesenteric fat. Lymph nodes: No enlarged lymph nodes apparent. Vasculature: No evidence of abdominal aortic aneurysm. No retroperitoneal hemorrhage evident. Bones: No acute fracture PELVIS: Reproductive: The patient is post hysterectomy. Bladder: Nondistended. No obvious stones or masses. There is no free fluid in the pelvis. Appendix: Post appendectomy IMPRESSION: Tiny ventral hernia just above the umbilicus containing a small portion of nondilated small bowel and mesenteric fat mildly dilated fluid-filled proximal and mid small bowel mid stomach suggesting gastroenteritis. I somewhat doubt the tiny ventral hernia causing any significant obstruction. Dictated by: Dr. Fran Hernandez MD 05/31/2020 12:46 Dr. Fran Hernandez MD in [place] 05/31/2020 12:46
--- NOTE | 2020-05-31 11:43 | HMH.EDGENADL ---
ED Disposition Clinical Impression: Diabetic ketoacidosis Qualifiers: Diabetes mellitus type: type 2 Diabetes mellitus complication detail: without coma Qualified Code(s): E11.10 - Type 2 diabetes mellitus with ketoacidosis without coma Disposition: Admitted As Inpatient Condition on Discharge: Serious Time of Disposition: 13:00 - Critical Care Critical Care Time: Yes Attestation: On 05/31/20, the high probability of a clinically significant, sudden or life threatening deterioration of the following system(s) required my full and direct attention, intervention and personal management. The time I documented below is in addition to time spent performing reported procedures but includes the following listed in this critical care notation. Total Critical Care Time: 30 Vital system(s) involved:: Metabolic Failure My critical care processes included: Assessment & monitoring of V/S, Initial and Re-exams, Data Review/Interpretation, Coordinating Care, Medication Orders and management, Documentation Medical Decision Making - Medical Records Medical records reviewed: Yes: I reviewed the patient's medical records. - Goyo Inquiry Pt receiving controlled substance: No Vital Signs: 05/31/20 11:08 05/31/20 12:43 05/31/20 12:57 Temperature 97.9 F Temperature Source Oral Pulse Rate [Right Radial] 116 H 111 H 112 H Respiratory Rate 24 20 Blood Pressure [Right Arm] 159/73 H 161/77 H 140/78 Blood Pressure Mean [Right Arm] 101 105 98 Blood Pressure Source [Right Arm] Automatic Cuff Automatic Cuff Automatic Cuff Blood Pressure Position [Right Arm] Sitting Sitting Sitting 02 Sat by Pulse Oximetry 98 97 98 Oxygen Delivery Method Room Air Room Air Room Air - Lab Data Lab Results 05/31/20 11:35: WBC 15.7 H, RBC 4.69, Hgb 13.2, Hct 42.0, MCV 89.5, MCH 28.2, MCHC 31.5 L, RDW 15.0, Plt Count 230, MPV 8.8, Neut % (Auto) 93.3 H, Lymph % (Auto) 2.6 L, [place] % (Auto) 3.9, Eos % (Auto) 0.0 L, Baso % (Auto) 0.1, Neut # (Auto) 14.7 H, Lymph # (Auto) 0.4 L, [place] # (Auto) 0.6, Eos # (Auto) 0.0, Baso # (Auto) 0.0, Total Counted 100, Neutrophils % (Manual) 91 H, Band Neutrophils % 4.0, Lymphocytes % (Manual) 2 L, Monocytes % (Manual) 3, Platelet Estimate Normal, RBC Morphology Normal 05/31/20 11:35: Sodium 127 L, Potassium 3.7, Chloride 92 L, Carbon Dioxide 9 L*, Anion Gap 29.7 H, BUN 22 H, Creatinine 1.00, Estimated Creat Clear 67, Estimated GFR 60, Est GFR ( Amer) 73, Glucose 611 H*, Calcium 9.4, Total Bilirubin 1.2, AST 24, ALT 20, Alkaline Phosphatase 125, Total Protein 7.9, Albumin 3.9, Globulin 4.0 H, Albumin/Globulin Ratio 1.0 L 05/31/20 11:35: Lipase 25 05/31/20 11:35: Acetone Level Moderate 05/31/20 11:35: Magnesium 2.0 05/31/20 11:35: Phosphorus 3.8 05/31/20 11:53: Urine Color Yellow, Urine Appearance Sl cloudy, Urine pH 5.5, Ur Specific [place] 1.025, Urine Protein 1+, Urine Glucose (UA) 3+, Urine Ketones 3+, Urine Blood 2+, Urine Nitrate Negative, Urine Bilirubin 1+ A, Urine Urobilinogen 0.2, Ur Leukocyte Esterase Negative, Urine RBC 5-10, Urine WBC 3-5, Ur Squamous Epith Cells 3-5, Urine Bacteria None 05/31/20 13:10: Sodium 130 L, Potassium 3.6, Chloride 96 L, Carbon Dioxide 11 L D, Anion Gap 26.6 H, BUN 23 H, Creatinine 1.00, Estimated Creat Clear 67, Estimated GFR 60, Est GFR ( Amer) 73, Glucose 532 H*, Calcium 9.0 Result diagrams: 05/31/20 11:35 05/31/20 16:15 Orders (Tests/Meds): ED MEDICATIONS Generic Name Dose Route Start Last Admin Trade Name Freq PRN Reason Stop Dose Admin Sodium Chloride 1,000 mls @ 150 mls/hr 05/31/20 14:25 05/31/20 18:31 Sod Chlor 0.9% 1000ml Bag IV 06/30/20 12:59 150 mls/hr .[id number] CORDELIA Administration Insulin Human Regular 100 unit 101 mls @ 13.881 mls/hr 05/31/20 14:25 05/31/20 18:32 / Sodium Chloride IV 06/30/20 12:14 13.881 mls/hr .Q7H17M CORDELIA Administration Protocol 0.1 UNITS/KG/HR Pantoprazole Sodium 40 mg 05/31/20 21:00 Pantoprazole 40mg Vial IV
--- NOTE | 2020-05-31 11:52 | PC.NURSE ---
pt to CT
[2020-05-31 11:54] LABS: Basophils % 0.1 % (0.1-2.0); Hemoglobin 13.2 g/dL (12.2-16.2); Lymphocytes # 0.4 K/mm3 (0.7-4.5); Lymphocytes % 2.6 % (10-50); Mean Corpuscular HGB Conc 31.5 g/dL (31.8-35.4); Mean Corpuscular Hemoglobin 28.2 pg (27.0-31.2); Mean Corpuscular Volume 89.5 fl (81-99); Mean Platelet Volume 8.8 fl (7.4-10.4); Monocytes # 0.6 K/mm3 (0.1-1.0); Monocytes % 3.9 % (1.7-9.3); Neutrophils # 14.7 K/mm3 (1.8-7.8); Neutrophils % 93.3 % (37.0-80.0); Platelet Count 230 K/mm3 (142-424); Red Blood Count 4.69 M/mm3 (4.20-5.40); White Blood Count 15.7 K/mm3 (4.8-10.8)
[2020-05-31 11:57] LABS: MANUAL DIFFERENTIAL MANUAL DIFFERENTIAL (MANUAL DIFF)
[2020-05-31 11:59] LABS: Lipase 25 U/L (23-300)
[2020-05-31 12:00] LABS: Alanine Aminotransferase 20 U/L (12-78); Albumin Level 3.9 g/dl (3.5-5.0); Alkaline Phosphatase 125 U/L (38-126); Anion Gap 29.7 mEq/L (5-15); Aspartate Amino Transferase 24 U/L (14-36); Bilirubin,Total 1.2 mg/dl (0.2-1.3); Blood Urea Nitrogen 22 mg/dl (7-17); Calcium 9.4 mg/dl (8.4-10.2); Chloride 92 mmol/L (98-107); Creatinine Clearance Estimated 67 mL/min (50-200); Estimated Glomerular Filt Rate 60 ml/min (>60); GFR (African American) 73 ML/MIN (>60); Potassium 3.7 mmoL/L (3.5-5.1); Sodium 127 mmol/L (136-145); Total Protein,Serum 7.9 g/dl (6.3-8.2)
[2020-05-31 12:05] LABS: Carbon Dioxide 9 mmol/L (22.0-30.0); Glucose 611 mg/dl (74-100)
--- NOTE | 2020-05-31 12:05 | PC.NURSE ---
LAB CALLED WITH CRITICALS GLUCOSE [address] GLASER AWARE
[2020-05-31 12:07] LABS: Microscopic, Urine URINE MICROSCOPIC (MICROSCOPIC)
[2020-05-31 12:15] LABS: Appearance,Urine SL CLOUDY (Clear); Blood, Urine 2+ (Negative); Color,Urine YELLOW (Yellow); Glucose,Urine (UA) 3+ (Negative); Ketones,Urine 3+ (Negative); Leukocyte Esterase,Urine Negative (Negative); Nitrate,Urine Negative (Negative); PH,Urine 5.5 (5.0-8.5); Protein,Urine 1+ (Negative); Specific Gravity, Urine 1.025 (1.005-1.030); Urobilinogen,Urine 0.2 EU/dl (0.2)
[2020-05-31 12:23] LABS: Acetone, Serum (Rapid) Moderate (None Detect)
[2020-05-31 12:35] LABS: Lymphocytes % 2 % (10-50); Monocytes % 3 % (2-9); Neutrophils % 91 % (42-76); Platelet Estimate Normal; RBC Morphology Normal; Total Cells Counted 100
[2020-05-31 12:46] LABS: Bilirubin,Urine 1+ (Negative)
[2020-05-31 12:49] LABS: Phosphorous 3.8 mg/dl (2.5-4.5)
--- NOTE | 2020-05-31 12:58 | PC.NURSE ---
calling dr larry at this time.
[2020-05-31 13:30] LABS: Chloride 96 mmol/L (98-107); Potassium 3.6 mmoL/L (3.5-5.1); Sodium 130 mmol/L (136-145)
--- NOTE | 2020-05-31 13:32 | PC.NURSE ---
spoke with housekeeping supervisor hotel r/t pt is pending admission r/t pending covid swab, large pt volume in ER at this time. township supervisor states okay to send pt to admitted room pending covid swab, call admitting nurse to notify her to use precautions until swab result. spoke with venus on second floor states she will come down to get pt and report. spoke with [facility] states approx 2 hours left on covid swab result, notified [facility] pt is an admission.
[2020-05-31 13:33] LABS: Anion Gap 26.6 mEq/L (5-15); Blood Urea Nitrogen 23 mg/dl (7-17); Carbon Dioxide 11 mmol/L (22.0-30.0); Creatinine Clearance Estimated 67 mL/min (50-200); Estimated Glomerular Filt Rate 60 ml/min (>60); GFR (African American) 73 ML/MIN (>60)
[2020-05-31 13:36] LABS: Glucose 532 mg/dl (74-100)
--- NOTE | 2020-05-31 13:36 | PC.NURSE ---
notified ER of critical glucose
--- NOTE | 2020-05-31 13:48 | PC.NURSE ---
report given to noe umaña rn at this time
--- NOTE | 2020-05-31 13:55 | PC.NURSE ---
Pt arrived to the floor at this time.
--- NOTE | 2020-05-31 14:00 | PC.NURSE ---
Attempted to complete Medication Reconciliation at this time. Pt reports that she doesn't know what medications she takes. Attempted to contact pt's Pharmacy and the line wouldn't ring. Will request night nurse to pass along to day shift a request for medication list from PCP.
--- NOTE | 2020-05-31 14:00 | PC.NURSE ---
FSBS result: 547, STAT serum glucose ordered at this time. Insulin gtt titrated to 20 Units/HR.
[2020-05-31 14:23] LABS: VBG Base Excess -18.5 mmol/L (-2.4-2.3); VBG HCO3 10.3 mmol/L (23-30); VBG Oxygen Saturation 76.2 % (50-70); VBG PCO2 29.9 mmol/L (35-51); VBG PH 7.15 mmol/L (7.31-7.41); VBG PO2 45.9 mmol/L (28-40); VBG Total CO2 11.2 mmol/L (23-27)
[2020-05-31 14:35] LABS: POC Glucose,Bedside 547 (70-110)
--- NOTE | 2020-05-31 14:38 | HMH.PHAVTE ---
[facility] Pharmacy VTE Monitoring - Patient Demographics Admission date: 05/31/20 Report Date: 05/31/20 Time: 14:38 Allergies/Adverse Reactions: Patient Allergies No Known Allergies Allergy (Verified 05/31/20 09:35) Height: 1.68 m Weight: 137.438 kg - VTE Risk Labs: VTE Related Lab Results Hgb 13.2 g/dL (12.2-16.2) 05/31/20 11:35 Hct 42.0 % (37.0-47.0) 05/31/20 11:35 Plt Count 230 K/mm3 (142-424) 05/31/20 11:35 BUN 23 mg/dl (7-17) H 05/31/20 13:10 Creatinine 1.00 mg/dl (0.52-1.04) 05/31/20 13:10 Estimated Creat Clear 67 mL/min (50-200) 05/31/20 13:10 Clinical Trial Participant: No - Prophylaxis VTE Prophylaxis Ordered?: Yes Types of VTE Prophylaxis: TEDS Knee High
--- NOTE | 2020-05-31 15:00 | PC.NURSE ---
FSBS result: 450. Insulin gtt titrated to 25 Units/HR.
[2020-05-31 15:33] LABS: Glucose,Random 457 mg/dL (74-100)
[2020-05-31 16:03] LABS: POC Glucose,Bedside 450 (70-110)
[2020-05-31 16:46] LABS: Chloride 100 mmol/L (98-107); Potassium 3.2 mmoL/L (3.5-5.1); Sodium 133 mmol/L (136-145)
[2020-05-31 16:49] LABS: Anion Gap 19.2 mEq/L (5-15); Blood Urea Nitrogen 23 mg/dl (7-17); Calcium 9.2 mg/dl (8.4-10.2); Carbon Dioxide 17 mmol/L (22.0-30.0); Creatinine Clearance Estimated 67 mL/min (50-200); Estimated Glomerular Filt Rate 60 ml/min (>60); GFR (African American) 73 ML/MIN (>60); Glucose 322 mg/dl (74-100)
[2020-05-31 17:24] LABS: POC Glucose,Bedside 245 (70-110)
[2020-05-31 17:24] LABS: POC Glucose,Bedside 371 (70-110)
[2020-05-31 18:31] LABS: POC Glucose,Bedside 196 (70-110)
[2020-05-31 19:13] LABS: POC Glucose,Bedside 160 (70-110)
--- NOTE | 2020-05-31 20:23 | HMH.HP ---
*Admission Date: 05/31/20 *Chief complaint: nausea and vomiting, generalized weakness, dka *History of present illness: Patient is a 44-year-old white female, longstanding diabetes, who was admitted after seeing me in the office with nausea vomiting and escalating weakness. She was also having some loose bowel movements. No suggestion of melanotic stool or hematemesis. Her presentation was preceded by 4 to 5 days of worsening symptoms. She had nausea, diminished p.o. intake, and was not checking blood sugars. She had missed several doses of insulin. She has a history of diabetes with poor control, suboptimal compliance. Patient has a history of malignant hypertension, is status post gallbladder. Her mother was recently diagnosed with lymphoma, she has a lot of anxiety. There is underlying depression. Her affect is very flat today. [facility] History Medical History: Reports:: Depression, Diabetes Mellitus Type 2, Gastroesophageal Reflux Disease(GERD), Home Oxygen, Hyperlipidemia, Hypertension, Seizures Denies:: Cancer, Diabetes Mellitus Type 1, Internal Pacemaker, MRSA *Have you ever received a pneumonia vaccine?: Yes *Have you received a flu vaccine this season?: Yes Other Surgeries: Yes: Appendectomy, Cardiac Catheterization, Cholecystectomy, , Hernia Repair, Hysterectomy-Total. No: Pacemaker Amputation: No Fractures: Yes - *Social History Last grade of school completed: High school graduate Smoking Status: Former smoker Tobacco Type: cigarettes Alcohol Intake: never Alcohol Intake Frequency:: holidays/special occasions only Substance Use Type: denies use *Occupational Status:: unemployed Housing: house Household Members: spouse *Travel in the last 8 weeks: None - Psychiatric History Pschychiatric History:: Reports:: Depression Family Hx:: Mental illness Review of Systems - Constitutional Reports anorexia, Reports fatigue, Reports lack of energy, Reports malaise - Eyes Denies change in vision - ENT Reports dry mouth, Denies abnormal hearing - *Cardiovascular Denies chest pain, Denies chest pain at rest, Denies chest pain with activity, Denies shortness of breath - *Respiratory Denies chest congestion - *Gastrointestinal Reports abdominal pain, Reports bloating, Reports change in stools, Reports cramping, Reports loose stools, Reports excessive passing of gas, Reports incontinent of stools, Reports loose stools, Reports nausea, Denies vomiting blood, Denies bright, red blood in stools - *Genitourinary Denies painful urination - *Musculoskeletal Reports limited joint movement, Reports muscle weakness - Integumentary/Breasts Denies yellowing of the skin - *Neurologic Reports abnormal walking, Reports unsteadiness, Denies seizure-like activity, Denies headache(s), Denies numbness, Denies weakness - Psychiatric Reports lack of enjoyment, Reports anxiety, Reports behavioral changes, Reports depression - Endocrine Reports increased thirst - Allergic/Immunologic Denies hives Meds Home Medications Medication Instructions Recorded Confirmed Type Venlafaxine HCl [Venlafaxine HCl 150 mg PO DAILY 10/27/19 06/01/20 History ER] amlodipine 10 mg-benazepril 40 mg 1 cap PO DAILY 30 Days #30 cap 02/01/20 06/01/20 Rx capsule insulin glargine 100 unit/mL (3 100 unit SQ QPM #10 pen 02/01/20 05/31/20 Rx mL) subcutaneous pen lithium carbonate 300 mg capsule 600 mg PO DAILY #180 cap 02/01/20 06/01/20 Rx Acetaminophen with Codeine 1 tab PO BIDP PRN 06/01/20 06/01/20 History [Acetaminophen w/Codeine #3 Tablet] Aspirin [Low Dose Aspirin EC] 81 mg PO DAILY 06/01/20 06/01/20 History Atorvastatin Calcium [Lipitor 20mg 20 mg PO DAILY 06/01/20 06/01/20 History Tab] Dulaglutide [Trulicity] 3 mg SQ WEEKLY 06/01/20 06/01/20 History Ergocalciferol (Vitamin D2) 50,000 units PO WEEKLY 06/01/20 06/01/20 History [Drisdol] Hydralazine HCl 100 mg PO TID 06/01/20 06/01/20 History Insulin Lispro [
[2020-05-31 21:47] LABS: Chloride 105 mmol/L (98-107); Potassium 3.2 mmoL/L (3.5-5.1); Sodium 133 mmol/L (136-145)
[2020-05-31 21:50] LABS: Anion Gap 13.2 mEq/L (5-15); Blood Urea Nitrogen 27 mg/dl (7-17); Carbon Dioxide 18 mmol/L (22.0-30.0); Creatinine Clearance Estimated 83 mL/min (50-200); Estimated Glomerular Filt Rate 78 ml/min (>60); GFR (African American) 94 ML/MIN (>60)
[2020-05-31 21:51] LABS: Calcium 8.9 mg/dl (8.4-10.2); Glucose 165 mg/dl (74-100)
[2020-05-31 21:55] LABS: Barbiturates Screen,Urine Negative ng/ml (<200)
[2020-05-31 21:56] LABS: Amphetamine/Metha Screen,Urine Negative ng/ml (<1000); Benzodiazepines Screen,Urine Negative ng/ml (<200)
[2020-05-31 21:57] LABS: Cannabinoid Screen,Urine Positive ng/ml (<50)
[2020-05-31 21:58] LABS: Cocaine Screen,Urine Negative ng/ml (<300); Methadone Screen,Urine Negative ng/ml (<300)
[2020-05-31 21:59] LABS: Opiate Screen,Urine Negative ng/ml (<300)
[2020-05-31 22:00] LABS: Phencyclidine Screen,Urine Negative ng/ml (<25)
[2020-06-01] VITALS (9 sets, daily range): BP systolic 110–171; BP diastolic 50–78; PULSE 80–117; RESP 16–24; TEMP 36.4–37.8; O2SAT 93–99; BMI 49.7; BMI 49.6
[2020-06-01 00:22] LABS: Chloride 106 mmol/L (98-107)
[2020-06-01 00:23] LABS: Potassium 3.4 mmoL/L (3.5-5.1); Sodium 131 mmol/L (136-145)
[2020-06-01 00:25] LABS: Blood Urea Nitrogen 28 mg/dl (7-17); Creatinine Clearance Estimated 83 mL/min (50-200); Estimated Glomerular Filt Rate 78 ml/min (>60); GFR (African American) 94 ML/MIN (>60)
[2020-06-01 00:26] LABS: Anion Gap 12.4 mEq/L (5-15); Calcium 8.7 mg/dl (8.4-10.2); Carbon Dioxide 16 mmol/L (22.0-30.0); Glucose 188 mg/dl (74-100)
[2020-06-01 01:32] LABS: Acetone, Serum (Rapid) None Detected (None Detect)
--- NOTE | 2020-06-01 02:44 | PC.NURSE ---
PT IS RESTING IN BED. NO COMPLAINTS OF DISCOMFORT. PT STATES SHE IS VERY THIRSTY AND HAS TOLERATED CLEAR LIQUIDS THIS SHIFT. INSULIN DRIP HAS BEEN TITRATED PER PROTOCOL. PCP WAS NOTIFIED AT 0200 ABOUT PT'S GAP BEING CLOSED AND NO ACETONE DETECTED. PCP DC'D INSULIN DRIP, 1800 ADA DIET ORDERED, HIGH INTENSITY SLIDING SCALE AND NS @150 ML'S/HR. PT HAS BEEN ALERT AND ORIENTED X4 T/O THE SHIFT BUT HAS BEEN VERY SLOW TO RESPOND AND HAS HAD A VERY FLAT AFFECT. WHEN PT WAS ASKED ABOUT HER MEDICATIONS SHE STATED SHE WAS NOT SURE OF WHAT THEY WERE BUT SHE DID TAKE SEVERAL MEDICATIONS. PT'S BP HAS BEEN ELEVATED T/O THE SHIFT. WHEN PT WAS ASKED ABOUT THE LAST TIME SHE TOOK HER MEDICATIONS SHE STATED IT HAD BEEN A FEW DAYS B/C SHE HAD BEEN SO SICK. PT STATED IT HAD BEEN A COUPLE OF DAYS SINCE SHE HAD TAKEN ANY INSULIN. PT HAS A FIFTH TOE AMPUTATION TO THE LEFT FOOT. LUNG SOUNDS DIMINISHED. ABDOMEN SOFT/LARGE.WITH HYPOACTIVE BOWEL SOUNDS. WILL CONTINUE TO MONITOR.
[2020-06-01 06:32] LABS: POC Glucose,Bedside 159 (70-110)
[2020-06-01 06:32] LABS: POC Glucose,Bedside 135 (70-110)
[2020-06-01 06:32] LABS: POC Glucose,Bedside 175 (70-110)
[2020-06-01 06:32] LABS: POC Glucose,Bedside 169 (70-110)
[2020-06-01 06:32] LABS: POC Glucose,Bedside 154 (70-110)
[2020-06-01 06:32] LABS: POC Glucose,Bedside 164 (70-110)
[2020-06-01 06:32] LABS: POC Glucose,Bedside 275 (70-110)
[2020-06-01 06:32] LABS: POC Glucose,Bedside 166 (70-110)
--- NOTE | 2020-06-01 09:25 | HMH.PHAINT ---
HOME MEDICATION LIST COMPLETED USING LIST FROM [facility] AND DR ANTHONY OFFICE
[2020-06-01 12:53] LABS: POC Glucose,Bedside 424 (70-110)
--- NOTE | 2020-06-01 13:46 | HMH.ACPN2 ---
Internal Medicine - PN: Subj *Date: 06/01/20 *Time: 16:10 Interval history: 44-year-old female patient sitting up in bed respirations easy and even. She reports she is feeling better today, discussed with her need to stay in hospital possibly for 1 more day, she is agreeable to this. Insulin gtt. is off at this time. Exam Vital signs and Labs for Last 24 Hours: Temp Pulse Resp BP Pulse Ox 98.3 F 105 H 20 171/77 H 97 06/01/20 12:00 06/01/20 12:00 06/01/20 12:00 06/01/20 12:00 06/01/20 12:00 Laboratory Results - last 24 hr 05/31/20 11:53: Urine Opiates Screen Negative, Urine Methadone Screen Negative, Ur Barbituates Screen Negative, Ur Phencyclidine Scrn Negative, Ur Amphetamines Screen Negative, U Benzodiazepines Scrn Negative, Urine Cocaine Screen Negative, U Marijuana (THC) Screen Positive H 05/31/20 14:06: VBG pH 7.15 L, VBG pCO2 29.9 L, VBG pO2 45.9 H, VBG HCO3 10.3 L, VBG Total CO2 11.2 L, VBG O2 Saturation 76.2 H, VBG Base Excess -18.5 L 05/31/20 14:21: POC Glucose 547 H* 05/31/20 14:50: Random Glucose 457 H* 05/31/20 15:22: POC Glucose 450 H* 05/31/20 16:15: Sodium 133 L, Potassium 3.2 L, Chloride 100, Carbon Dioxide 17 L D, Anion Gap 19.2 H, BUN 23 H, Creatinine 1.00, Estimated Creat Clear 67, Estimated GFR 60, Est GFR ( Amer) 73, Glucose 322 H D, Calcium 9.2 05/31/20 16:23: POC Glucose 371 H* 05/31/20 17:13: POC Glucose 245 H 05/31/20 18:11: POC Glucose 196 H 05/31/20 19:02: POC Glucose 160 H 05/31/20 19:58: POC Glucose 135 H 05/31/20 21:07: POC Glucose 166 H 05/31/20 21:30: Sodium 133 L, Potassium 3.2 L, Chloride 105, Carbon Dioxide 18 L, Anion Gap 13.2, BUN 27 H, Creatinine 0.80, Estimated Creat Clear 83, Estimated GFR 78, Est GFR ( Amer) 94 D, Glucose 165 H D, Calcium 8.9 05/31/20 22:06: POC Glucose 154 H 05/31/20 23:08: POC Glucose 175 H 06/01/20 00:10: Acetone Level None detected 06/01/20 00:10: Sodium 131 L, Potassium 3.4 L, Chloride 106, Carbon Dioxide 16 L, Anion Gap 12.4, BUN 28 H, Creatinine 0.80, Estimated Creat Clear 83, Estimated GFR 78, Est GFR ( Amer) 94, Glucose 188 H, Calcium 8.7 06/01/20 00:14: POC Glucose 169 H 06/01/20 01:21: POC Glucose 159 H 06/01/20 02:11: POC Glucose 164 H 06/01/20 05:31: POC Glucose 275 H 06/01/20 12:27: POC Glucose 424 H* I & O for Last 24 hours: Intake & Output 05/29/20 05/30/20 05/31/20 06/01/20 23:59 23:59 23:59 23:59 Intake Total 300 / 300 2144 / 2144 Output Total 800 / 1200 400 / 400 Balance -500 / -900 1744 / 1744 Weight 297 lb 6 oz 309 lb 5 oz Microbiology Reports for the Last 24 Hours: Microbiology 05/31/20 12:35 Nasopharyngeal Coronavirus COVID-19 PCR - Final - Constitutional no acute distress, morbidly obese - *Routine HEENT Exam Head: Present: normocephalic Eye: Present: EOMI ENT: Present: mucous membranes moist - *Routine Neck Exam Present: supple, trachea midline. Absent: tracheal deviation - *Routine Respiratory Exam Present: CTA bilaterally. Absent: accessory muscle use - *Routine Cardiovascular Exam Present: RRR - *Routine Abdominal Exam Present: soft, normoactive bowel sounds, obese. Absent: tenderness, firm - *Routine Extremities Exam Present: edema, full ROM, pulses intact. Absent: cyanosis, calf tenderness - *Routine Skin Exam Present: intact, dry, warm. Absent: cyanosis - *Routine Neurological Exam Present: alert, oriented X3. Absent: pronator drift - Routine Psychiatric Exam Present: normal affect, normal thought process. Absent: auditory hallucinations, visual hallucinations Assessment and Plan (1) Diabetic ketoacidosis Status: Acute Qualifiers: Diabetes mellitus type: type 2 Diabetes mellitus complication detail: without coma Qualified Code(s): E11.10 - Type 2 diabetes mellitus with ketoacidosis without coma Category: Medical Code(s): E11.10 - Type 2 diabetes mellitus with ketoacidosis without coma (2) Amputation of fifth toe of left foot
[2020-06-01 16:44] LABS: POC Glucose,Bedside 363 (70-110)
--- NOTE | 2020-06-01 17:43 | PC.NURSE ---
Pt is alert and oriented x4. Lungs clear, bowel sounds active x4. She has complained of heartburn and requesting medication for it today. Medication obtained and pt refused. She also refused her morning meds but decided to take them around noon. She wants medications crushed and mixed in something to make it easier to swallow. She was encouraged to ambulate and get up to the chair but she remained in bed all shift. She did however, take shower this am independently. Appetite poor this shift. Glucose elevated at 424 and 363 on checks. Covered with SSI. Will continue to monitor.
[2020-06-01 21:25] LABS: POC Glucose,Bedside 321 (70-110)
[2020-06-02] VITALS: BP 103/58; PULSE 75; PULSE 78; RESP 19; TEMP 36.8; O2SAT 97
--- NOTE | 2020-06-02 00:31 | PC.NURSE ---
Addendum entered by Abbey Jacobsen RN 06/02/20 04:36: PT WOULD NOT TAKE HER PROTONIX OR LIPITOR Original Note: PT IS RESTING IN BED. AT THE BEGINNING OF THE SHIFT PT STATED SHE DID NOT KNOW IF SHE WOULD BE ABLE TO TAKE HER MEDS B/C HER STOMACH WAS UPSET. PT WAS GIVEN A DOSE OF ZOFRAN. PT REFUSED HYDRALAZINE BUT WAS ENCOURAGED TO TAKE HER PROTONIX AND LIPITOR AND WAS EDUCATED ON WHAT BOTH WERE FOR. PT HAS NOT HAD ANY ISSUES WITH SWALLOWING. PT HAS BEEN DRINKING DIET PEPSI AND WATER T/O THE SHIFT AND REQUESTED CRACKERS TO EAT AT THE BEGINNING OF THE SHIFT. PT HAS BEEN AMBULATING TO THE BATHROOM W/O DIFFICULTY. EARLIER IN THE SHIFT PT DISCONNECTED HER OWN IV TO GO TO THE BATHROOM. WHEN PT WAS QUESTIONED ABOUT IT SHE APOLOGIZED AND STATED I COULD NOT FIND MY REMOTE TO CALL FOR ANYONE THE CALL LIGHT WAS SITTING ON THE BED AT THIS TIME. PT STILL HAS A VERY FLAT AFFECT. SHE STATES SHE HAS TOLD HER PCP ON MULTIPLE OCCASIONS THAT SHE HAS DIFFICULTY WITH TAKING PILLS BUT HE HAS JUST ALWAYS ENCOURAGED HER TO TRY TO TAKE THEM. VSS. LUNG SOUNDS DIMINISHED. WILL CONTINUE TO MONITOR.
[2020-06-02 04:00] VITALS: BP 120/67; PULSE 74; PULSE 79; RESP 20; TEMP 36.5; O2SAT 98
[2020-06-02 04:51] VITALS: BMI 50.1
[2020-06-02 05:54] LABS: POC Glucose,Bedside 343 (70-110)
[2020-06-02 08:00] VITALS: BP 119/67; PULSE 76; RESP 18; TEMP 36.6; O2SAT 97
[2020-06-02 09:13] LABS: Alanine Aminotransferase 19 U/L (12-78); Albumin/Globulin Ratio 0.8 (1.1-1.8); Alkaline Phosphatase 97 U/L (38-126); Anion Gap 13.7 mEq/L (5-15); Aspartate Amino Transferase 37 U/L (14-36); Bilirubin,Total 0.7 mg/dl (0.2-1.3); Blood Urea Nitrogen 50 mg/dl (7-17); Calcium 7.9 mg/dl (8.4-10.2); Carbon Dioxide 15 mmol/L (22.0-30.0); Chloride 100 mmol/L (98-107); Creatinine Clearance Estimated 48 mL/min (50-200); Estimated Glomerular Filt Rate 41 ml/min (>60); GFR (African American) 49 ML/MIN (>60); Globulin 3.6 g/dL (1.3-3.2); Glucose 318 mg/dl (74-100); Potassium 3.7 mmoL/L (3.5-5.1); Sodium 125 mmol/L (136-145); Total Protein,Serum 6.6 g/dl (6.3-8.2)
[2020-06-02 11:41] LABS: POC Glucose,Bedside 307 (70-110)
[2020-06-02 13:33] LABS: Microscopic, Urine URINE MICROSCOPIC (MICROSCOPIC)
[2020-06-02 13:36] LABS: Appearance,Urine CLOUDY (Clear); Blood, Urine 1+ (Negative); Color,Urine YELLOW (Yellow); Glucose,Urine (UA) Negative (Negative); Ketones,Urine Negative (Negative); Leukocyte Esterase,Urine 2+ (Negative); Nitrate,Urine Negative (Negative); Protein,Urine 1+ (Negative); Specific Gravity, Urine 1.025 (1.005-1.030)
[2020-06-02 14:17] LABS: Bilirubin,Urine 1+ (Negative)
[2020-06-02 14:19] LABS: Bacteria,Urine 1+ /lpf
[2020-06-02 14:22] LABS: Lithium (Eskalith(R)) <0.1 mmol/L (0.6-1.2)
[2020-06-02 15:59] VITALS: BP 109/55; PULSE 74; RESP 22; TEMP 36.7; O2SAT 95
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
[2020-06-02 17:22] LABS: POC Glucose,Bedside 286 (70-110)
--- NOTE | 2020-06-02 17:24 | HMH.ACPN2 ---
Internal Medicine - PN: Subj *Date: 06/02/20 *Time: 08:15 Interval history: pt states she wants to go home Exam Vital signs and Labs for Last 24 Hours: Temp Pulse Resp BP Pulse Ox 98.0 F 74 22 109/55 L 95 06/02/20 15:59 06/02/20 15:59 06/02/20 15:59 06/02/20 15:59 06/02/20 15:59 Laboratory Results - last 24 hr 05/31/20 21:30: [place] <0.1 L 06/01/20 20:59: POC Glucose 321 H* 06/02/20 05:41: POC Glucose 343 H* 06/02/20 08:43: Sodium 125 L, Potassium 3.7, Chloride 100, Carbon Dioxide 15 L, Anion Gap 13.7, BUN 50 H D, Creatinine 1.40 H D, Estimated Creat Clear 48, Estimated GFR 41 L, Est GFR ( Amer) 49 L D, Glucose 318 H, Calcium 7.9 L, Total Bilirubin 0.7, AST 37 H D, ALT 19, Alkaline Phosphatase 97, Total Protein 6.6, Albumin 3.0 L, Globulin 3.6 H, Albumin/Globulin Ratio 0.8 L 06/02/20 11:33: POC Glucose 307 H* 06/02/20 13:31: Urine Color Yellow, Urine Appearance Cloudy, Urine pH 6.0, Ur Specific [place] 1.025, Urine Protein 1+, Urine Glucose (UA) Negative, Urine Ketones Negative, Urine Blood 1+, Urine Nitrate Negative, Urine Bilirubin 1+ A, Urine Urobilinogen 1.0, Ur Leukocyte Esterase 2+ A, Urine RBC 3-5, Urine WBC 5-10, Ur Squamous Epith Cells 3-5, Urine Bacteria 1+ 06/02/20 17:13: POC Glucose 286 H I & O for Last 24 hours: Intake & Output 05/31/20 06/01/20 06/02/20 06/03/20 11:59 11:59 11:59 11:59 Intake Total 2444 / 2444 360 / 360 240 / 240 Output Total 1600 / 1600 420 / 620 400 / 400 Balance 844 / 844 -60 / -260 -160 / -160 Weight 303 lb 309 lb 5 oz 312 lb 4 oz - Constitutional no acute distress, obese - *Routine HEENT Exam Head: Present: normocephalic Eye: Present: PERRL ENT: Present: mucous membranes moist - *Routine Neck Exam Present: supple. Absent: lymphadenopathy - *Routine Respiratory Exam Present: CTA bilaterally - *Routine Cardiovascular Exam Present: RRR - *Routine Abdominal Exam Present: soft, normoactive bowel sounds. Absent: tenderness - *Routine Extremities Exam Absent: cyanosis, clubbing, edema - *Routine Skin Exam Present: warm. 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 Category: Medical Code(s): S98.132A - Complete traumatic amputation of one left lesser toe, initial encounter (3) Diabetic gastroparesis Status: Suspected Category: Medical Code(s): E11.43 - Type 2 diabetes mellitus with diabetic autonomic (poly)neuropathy; K31.84 - Gastroparesis (4) Nausea & vomiting Status: Acute Qualifiers: Vomiting type: unspecified Vomiting Intractability: unspecified Qualified Code(s): R11.2 - Nausea with vomiting, unspecified Category: Medical Code(s): R11.2 - Nausea with vomiting, unspecified (5) Tachycardia Status: Resolved Category: Medical Code(s): R00.0 - Tachycardia, unspecified (6) Diabetes mellitus Status: Chronic Qualifiers: Diabetes mellitus type: type 2 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
--- NOTE | 2020-06-02 17:55 | PC.NURSE ---
Pt has rested in bed the majority of the shift. She did ambulate to the bathroom with assist 1 and tolerated well. She refused a bath. Meds were crushed in apple sauce and pt attempted to take meds that way. She seemed more cooperative with care this afternoon. Affect is flat and voice monotone. She stated she wanted to go home but did agree to stay until morning to get IV fluids. She refused breakfast but did eat most of her lunch. Will continue to monitor.
[2020-06-02 20:00] VITALS: BP 105/73; PULSE 79; RESP 20; TEMP 36.6; O2SAT 100
--- NOTE | 2020-06-02 23:39 | PC.NURSE ---
PT IS RESTING IN BED. AT THE BEGINNING OF THE SHIFT DR. GONZALEZ CALLED AND ORDERED FOR PT TO SEE IN THE MORNING AND TO BE NPO AFTER MIDNIGHT. ASHLEE THIS WAS BROUGHT TO PT'S ATTENTION SHE STATED I DO NOT WANT TO SEE TOMORROW AND I HAVE HAD SCOPES IN THE PAST AND THEY NEVER FOUND ANYTHING PT STATED SHE REALLY WANTED TO GO HOME TOMORROW. PT REFUSED TO BE NPO AFTER MIDNIGHT AND WOULD NOT TAKE ANY OF HER PM MEDICATIONS. PT WAS TOLD THAT COULD POSSIBLY FIND OUT WHY SHE IS HAVING ISSUES WITH SWALLOWING AND WHY HER STOMACH STAYS SO UPSET BUT SHE STILL REFUSED CONSULT. PT WAS ASKED IF SHE WOULD BE WILLING TO SEE OUTPATIENT AND SHE DID SAY SHE WOULD CONSIDER THAT. PT HAS NOT WANTED TO DO ANYTHING DFOR HERSELF AT ALL THIS SHIFT. PT HAS CALLED OUT FOR ASSISTANCE TO THE BATHROOM B/C SHE STATES I AM JUST SO SCARED OF FALLING PT HAD STAFF WASH HER FROM HEAD TO TOE IN THE SHOWER B/C SHE STATED SHE WAS TOO COLD TO WASH HERSELF. ACCORDING TO PT HER DAUGHTER AND ASSIST HER WITH HER NEEDS AT HOME. WAS NOTIFIED ABOUT PT REFUSING CONSULT/NPO AFTER MIDNIGHT/MEDICATIONS. STATED SHE WOULD MORE THAN LIKELY BE DISCHARGED TOMORROW. ON ASSESSMENT LUNG SOUNDS DIMINISHED. ABDOMEN SOFT/NON TENDER WITH PALPATION AND HYPOACTIVE BOWEL SOUNDS. GENERALIZED EDEMA NOTED. PT IS VERY SLOW TO RESPOND AND LOOKS AT STAFF WITH A VERY FLAT AFFECT WHICH HAS BEEN UNCHANGED SINCE ADMISSION. VSS. WILL CONTINUE TO MONITOR
[2020-06-03] VITALS: BP 130/47; PULSE 71; RESP 20; TEMP 37.1; O2SAT 99
[2020-06-03 04:00] VITALS: BP 128/66; PULSE 73; RESP 17; TEMP 36.8; O2SAT 100
[2020-06-03 05:00] VITALS: BMI 50.6
[2020-06-03 05:13] LABS: POC Glucose,Bedside 239 (70-110)
[2020-06-03 06:02] LABS: POC Glucose,Bedside 310 (70-110)
[2020-06-03 06:16] LABS: Basophils % 0.2 % (0.1-2.0); Eosinophils # 0.1 K/mm3 (0.0-0.4); Eosinophils % 0.3 % (0.1-12.0); Hematocrit 32.8 % (37.0-47.0); Hemoglobin 10.8 g/dL (12.2-16.2); Lymphocytes # 1.1 K/mm3 (0.7-4.5); Mean Corpuscular HGB Conc 32.9 g/dL (31.8-35.4); Mean Corpuscular Hemoglobin 27.3 pg (27.0-31.2); Mean Corpuscular Volume 82.9 fl (81-99); Mean Platelet Volume 9.6 fl (7.4-10.4); Monocytes # 0.9 K/mm3 (0.1-1.0); Monocytes % 5.7 % (1.7-9.3); Neutrophils % 86.8 % (37.0-80.0); Platelet Count 176 K/mm3 (142-424); Red Blood Count 3.95 M/mm3 (4.20-5.40); Red Cell Distribution Width 15.2 % (11.5-17.5); White Blood Count 16.1 K/mm3 (4.8-10.8)
[2020-06-03 06:19] LABS: Anion Gap 17.5 mEq/L (5-15); Blood Urea Nitrogen 66 mg/dl (7-17); Calcium 7.7 mg/dl (8.4-10.2); Carbon Dioxide 11 mmol/L (22.0-30.0); Chloride 102 mmol/L (98-107); Creatinine Clearance Estimated 42 mL/min (50-200); Estimated Glomerular Filt Rate 35 ml/min (>60); GFR (African American) 42 ML/MIN (>60); Glucose 263 mg/dl (74-100); Potassium 3.5 mmoL/L (3.5-5.1); Sodium 127 mmol/L (136-145)
[2020-06-03 06:30] LABS: MANUAL DIFFERENTIAL MANUAL DIFFERENTIAL (MANUAL DIFF)
[2020-06-03 07:35] LABS: Lymphocytes % 6 % (10-50); Monocytes % 7 % (2-9); Neutrophils % 87 % (42-76); Total Cells Counted 100
[2020-06-03 07:38] LABS: RBC Morphology Normal
[2020-06-03 07:39] LABS: Platelet Estimate Normal
[2020-06-03 08:00] VITALS: BP 122/74; PULSE 71; RESP 18; TEMP 36.8; O2SAT 96
[2020-06-03 11:47] VITALS: BP 100/70; PULSE 73; RESP 18; TEMP 36.7; O2SAT 100
[2020-06-03 12:00] LABS: POC Glucose,Bedside 250 (70-110)
--- NOTE | 2020-06-03 12:33 | HMH.DCSUM ---
General - General Admission date:: 05/31/20 HPI HPI: Patient is a 44-year-old white female, longstanding diabetes, who was admitted after seeing me in the office with nausea vomiting and escalating weakness. She was also having some loose bowel movements. No suggestion of melanotic stool or hematemesis. Her presentation was preceded by 4 to 5 days of worsening symptoms. She had nausea, diminished p.o. intake, and was not checking blood sugars. She had missed several doses of insulin. She has a history of diabetes with poor control, suboptimal compliance. Patient has a history of malignant hypertension, is status post gallbladder. Her mother was recently diagnosed with lymphoma, she has a lot of anxiety. There is underlying depression. Her affect is very flat today. Hospital Course Hospital Course: admitted dka protocol with iv fluids presented with signif nausea/emesis/acidosis/ketones/increased gap improved clinically was seen by mental health relays significant stressors at home refused gastro consult while in house Objective Vital signs: Temp Pulse Resp BP Pulse Ox 98.0 F 73 18 100/70 L 100 06/03/20 11:47 06/03/20 11:47 06/03/20 11:47 06/03/20 11:47 06/03/20 11:47 no acute distress - *Routine Abdominal Exam Present: soft, normoactive bowel sounds, obese. Absent: tenderness - *Routine Extremities Exam Present: amputation - Routine Psychiatric Exam Present: depressed Results Labs on day of discharge: Labs from last 24 hours 06/03/20 06/03/20 06/03/20 11:45 05:40 05:40 WBC 16.1 H RBC 3.95 L Hgb 10.8 L Hct 32.8 L MCV 82.9 MCH 27.3 MCHC 32.9 RDW 15.2 Plt Count 176 MPV 9.6 Neut % (Auto) 86.8 H Lymph % (Auto) 7.0 L [place] % (Auto) 5.7 Eos % (Auto) 0.3 Baso % (Auto) 0.2 Neut # (Auto) 14.0 H Lymph # (Auto) 1.1 [place] # (Auto) 0.9 Eos # (Auto) 0.1 Baso # (Auto) 0.0 Total Counted 100 Neutrophils % (Manual) 87 H Lymphocytes % (Manual) 6 L Monocytes % (Manual) 7 Platelet Estimate Normal RBC Morphology Normal Sodium 127 L Potassium 3.5 Chloride 102 Carbon Dioxide 11 L D Anion Gap 17.5 H BUN 66 H D Creatinine 1.60 H Estimated Creat Clear 42 Estimated GFR 35 L Est GFR ( Amer) 42 L Glucose 263 H POC Glucose 250 H Calcium 7.7 L Urine Color Urine Appearance Urine pH Ur Specific [place] Urine Protein Urine Glucose (UA) Urine Ketones Urine Blood Urine Nitrate Urine Bilirubin Urine Urobilinogen Ur Leukocyte Esterase Urine RBC Urine WBC Ur Squamous Epith Cells Urine Bacteria [place] 06/03/20 06/02/20 06/02/20 05:31 20:38 17:13 WBC RBC Hgb Hct MCV MCH MCHC RDW Plt Count MPV Neut % (Auto) Lymph % (Auto) [place] % (Auto) Eos % (Auto) Baso % (Auto) Neut # (Auto) Lymph # (Auto) [place] # (Auto) Eos # (Auto) Baso # (Auto) Total Counted Neutrophils % (Manual) Lymphocytes % (Manual) Monocytes % (Manual) Platelet Estimate RBC Morphology Sodium Potassium Chloride Carbon Dioxide Anion Gap BUN Creatinine Estimated Creat Clear Estimated GFR Est GFR ( Amer) Glucose POC Glucose 310 H* 239 H 286 H Calcium Urine Color Urine Appearance Urine pH Ur Specific [place] Urine Protein Urine Glucose (UA) Urine Ketones Urine Blood Urine Nitrate Urine Bilirubin Urine Urobilinogen Ur Leukocyte Esterase Urine RBC Urine WBC Ur Squamous Epith Cells Urine Bacteria [place] 06/02/20 05/31/20 13:31 21:30 WBC RBC Hgb Hct MCV MCH MCHC RDW Plt Count MPV Neut % (Auto) Lymph % (Auto) [place] % (Auto) Eos % (Auto) Baso % (Auto) Neut # (Auto) Lymph # (Auto) [place]
[2020-06-07 14:19] LABS: Neisseria gonorrhoeae, NAA Negative (Negative)
== END 2020-06-03 13:55 | disposition home or self-care (01) | DRG 638 ==
LOC: ER 11:17 → 2ND 18:36
PROVIDERS: Nurse Practitioner Family; Admitting Provider Family Medicine; Emergency Provider Emergency Medicine; PCP Family Medicine; Visit Provider Family Medicine
DX: E11.10 Type 2 diabetes mellitus with ketoacidosis without coma (principal); Z68.43 Body mass index [BMI] 50.0-59.9, adult; E11.43 Type 2 diabetes mellitus with diabetic autonomic (poly)neuropathy; K31.84 Gastroparesis; E66.01 Morbid (severe) obesity due to excess calories; Z79.4 Long term (current) use of insulin; Z79.899 Other long term (current) drug therapy; E11.40 Type 2 diabetes mellitus with diabetic neuropathy, unspecified
CPT/HCPCS: 36415; 74177; 80048; 80053; 80178; 80305; 81001; 82009; 82803; 82947; 82962; 83690; 83735; 84100; 85007; 85025; 87086; 87088; 87186; 87491; 87591; 96365; 96367; 96375; 99284; J2405; Q9967; U0003

== ENCOUNTER → 2020-07-18 15:10 | Outpatient (CLI) | payer MEDICAID, SELFPAY ==
--- NOTE | 2020-07-18 15:11 | MM_ITS ---
PROCEDURE INFORMATION: Exam: Screening 3D Mammography Exam date and time: 07/18/2020 3:11 PM Age: 45 years old Clinical indication: Encounter for screening mammogram for malignant neoplasm of breast; family history of breast carcinoma. TECHNIQUE: Imaging protocol: Screening tomosynthesis and 2D mammography including computer-aided detection (CAD) when performed. COMPARISON: DIG MAMMO BILAT SCREENING 07/10/2017 9:13 AM FINDINGS: MAMMOGRAPHY: Breast composition: There are scattered areas of fibroglandular density. Mass: No new suspicious masses. Architectural distortion: No suspicious distortion. Calcifications: No suspicious calcifications. Asymmetric density: None. Skin thickening: None. Axillary adenopathy: None. IMPRESSION: No mammographic evidence of malignancy. Annual screening is recommended unless otherwise clinically indicated. ASSESSMENT: BI-RADS Category 1: Negative
== END ==
PROVIDERS: PCP Family Medicine; Visit Provider Family Medicine
DX: Z12.31 Encounter for screening mammogram for malignant neoplasm of breast (principal)
CPT/HCPCS: 77063; 77067

== ENCOUNTER → 2020-08-29 15:34 | Outpatient (CLI) | payer MEDICAID, SELFPAY ==
[2020-08-29 17:26] LABS: Alanine Aminotransferase 27 U/L (12-78); Albumin Level 4.1 g/dl (3.5-5.0); Alkaline Phosphatase 100 U/L (38-126); Anion Gap 15.3 mEq/L (5-15); Aspartate Amino Transferase 36 U/L (14-36); Bilirubin,Total 0.8 mg/dl (0.2-1.3); Blood Urea Nitrogen 12 mg/dl (7-17); Calcium 9.3 mg/dl (8.4-10.2); Carbon Dioxide 24 mmol/L (22.0-30.0); Chloride 100 mmol/L (98-107); Estimated Glomerular Filt Rate 77 ml/min (>60); GFR (African American) 93 ML/MIN (>60); Glucose 379 mg/dl (74-100); Potassium 4.3 mmoL/L (3.5-5.1); Sodium 135 mmol/L (136-145); Total Protein,Serum 8.1 g/dl (6.3-8.2)
== END ==
PROVIDERS: Visit Provider Family Medicine
DX: E11.40 Type 2 diabetes mellitus with diabetic neuropathy, unspecified (principal); Z79.4 Long term (current) use of insulin
CPT/HCPCS: 80053; 83036

== ENCOUNTER → 2020-10-17 13:44 | Outpatient (CLI) | payer MEDICAID, SELFPAY ==
[2020-10-17 13:55] LABS: Chloride 100 mmol/L (98-107); Potassium 4.3 mmoL/L (3.5-5.1); Sodium 137 mmol/L (136-145)
[2020-10-17 13:57] LABS: Alanine Aminotransferase 20 U/L (12-78); Anion Gap 13.3 mEq/L (5-15); Bilirubin,Total 0.8 mg/dl (0.2-1.3); Blood Urea Nitrogen 12 mg/dl (7-17); Carbon Dioxide 28 mmol/L (22.0-30.0); Estimated Glomerular Filt Rate 108 ml/min (>60); GFR (African American) 130 ML/MIN (>60)
[2020-10-17 13:58] LABS: Albumin Level 4.3 g/dl (3.5-5.0); Albumin/Globulin Ratio 1.2 (1.1-1.8); Calcium 9.5 mg/dl (8.4-10.2); Globulin 3.5 g/dL (1.3-3.2); Total Protein,Serum 7.8 g/dl (6.3-8.2)
[2020-10-17 14:01] LABS: Hemoglobin A1C 11.4 % (4.0-6.0)
[2020-10-17 14:04] LABS: Alkaline Phosphatase 105 U/L (38-126); Aspartate Amino Transferase 21 U/L (14-36)
[2020-10-17 14:07] LABS: Glucose 438 mg/dl (74-100)
== END ==
PROVIDERS: Visit Provider Family Medicine
DX: E11.40 Type 2 diabetes mellitus with diabetic neuropathy, unspecified (principal); Z79.4 Long term (current) use of insulin
CPT/HCPCS: 80053; 83036

== ENCOUNTER → 2020-10-24 13:02 | Outpatient (CLI) | payer MEDICAID, SELFPAY ==
[2020-10-24 14:01] LABS: Alanine Aminotransferase 21 U/L (12-78); Albumin Level 3.8 g/dl (3.5-5.0); Albumin/Globulin Ratio 1.2 (1.1-1.8); Alkaline Phosphatase 89 U/L (38-126); Anion Gap 17.1 mEq/L (5-15); Aspartate Amino Transferase 24 U/L (14-36); Bilirubin,Total 1.2 mg/dl (0.2-1.3); Blood Urea Nitrogen 11 mg/dl (7-17); Calcium 8.7 mg/dl (8.4-10.2); Carbon Dioxide 24 mmol/L (22.0-30.0); Chloride 99 mmol/L (98-107); Chol/HDL Ratio 3.2 (1-3.5); Cholesterol 147 mg/dl (140-200); Estimated Glomerular Filt Rate 108 ml/min (>60); GFR (African American) 130 ML/MIN (>60); Globulin 3.2 g/dL (1.3-3.2); HDL Cholesterol 46 mg/dl (40-60); Potassium 4.1 mmoL/L (3.5-5.1); Sodium 136 mmol/L (136-145); Triglycerides 250 mg/dl (30-150); VLDL Cholesterol 50 mg/dL (0-40)
[2020-10-24 14:02] LABS: Microalbumin/Creatinine Ratio 316.4
[2020-10-24 14:12] LABS: Direct LDL Cholesterol 65.53 mg/dL (100-129)
[2020-10-24 14:16] LABS: Glucose 558 mg/dl (74-100)
[2020-10-24 14:17] LABS: Creatinine,Urine Random 25 mg/dL (Not Estab.)
[2020-10-24 14:18] LABS: T4 (Thyroxine) 10.4 ug/dl (5.53-11.0)
[2020-10-24 14:21] LABS: Basophils % 0.2 % (0.1-2.0); Eosinophils # 0.2 K/mm3 (0.0-0.4); Eosinophils % 2.3 % (0.1-12.0); Hematocrit 38.2 % (37.0-47.0); Hemoglobin 12.4 g/dL (12.2-16.2); Lymphocytes # 1.3 K/mm3 (0.7-4.5); Lymphocytes % 14.1 % (10-50); Mean Corpuscular HGB Conc 32.5 g/dL (31.8-35.4); Mean Corpuscular Hemoglobin 27.3 pg (27.0-31.2); Mean Corpuscular Volume 83.9 fl (81-99); Mean Platelet Volume 8.4 fl (7.4-10.4); Monocytes # 0.4 K/mm3 (0.1-1.0); Monocytes % 4.1 % (1.7-9.3); Neutrophils # 7.4 K/mm3 (1.8-7.8); Neutrophils % 79.3 % (37.0-80.0); Platelet Count 263 K/mm3 (142-424); Red Blood Count 4.55 M/mm3 (4.20-5.40); Red Cell Distribution Width 15.9 % (11.5-17.5); White Blood Count 9.3 K/mm3 (4.8-10.8)
[2020-10-24 14:22] LABS: 25-OH Vitamin D, Total < 12.8 ng/mL (30-100)
[2020-10-24 14:32] LABS: Thyroid Stimulating Hormone 1.33 uIU/mL (0.465-4.68)
[2020-10-26 11:19] LABS: C-Peptide 3.7 ng/mL (1.1-4.4)
== END ==
PROVIDERS: Visit Provider Nurse Practitioner Family
DX: E78.5 Hyperlipidemia, unspecified (principal); I11.9 Hypertensive heart disease without heart failure; I16.0 Hypertensive urgency; G47.33 Obstructive sleep apnea (adult) (pediatric); E66.01 Morbid (severe) obesity due to excess calories; E11.9 Type 2 diabetes mellitus without complications; E55.9 Vitamin D deficiency, unspecified; Z72.0 Tobacco use; Z79.4 Long term (current) use of insulin
CPT/HCPCS: 80053; 80061; 82043; 82306; 82570; 84436; 84443; 84681; 85025

== ENCOUNTER → 2020-11-18 12:11 | Outpatient (CLI) | payer MEDICAID, SELFPAY | PROVIDERS: Visit Provider Internal Medicine Gastroenterology | DX: Z01.812 Encounter for preprocedural laboratory examination (principal); Z11.52 Encounter for screening for COVID-19; U07.1 COVID-19 | CPT/HCPCS: U0003 ==

== ENCOUNTER 2020-12-14 06:23 | Day surgery (SDC) | payer MEDICAID, SELFPAY ==
[2020-12-12 14:42] VITALS: BMI 45.1
--- NOTE | 2020-12-14 07:10 | HMH.GSHP ---
HPI HPI: Patient is a 45-year-old diabetic from [place] referred by Dr. Dean for upper endoscopy. Patient gives a longstanding history of dysphagia type symptoms. She states that she is unable to take her pertinent medications . She states that they feel like they become lodged in her throat. [facility] History Medical History: Reports:: Depression, Diabetes Mellitus Type 2, Gastroesophageal Reflux Disease(GERD), Home Oxygen, Hyperlipidemia, Hypertension, Seizures Denies:: Cancer, Diabetes Mellitus Type 1, Internal Pacemaker, MRSA *Have you ever received a pneumonia vaccine?: No *Have you received a flu vaccine this season?: No Other Surgeries: Yes: Appendectomy, Cardiac Catheterization, Cholecystectomy, , Hernia Repair, Hysterectomy-Total. No: Pacemaker Amputation: Yes (Left pinky toe amputated ) Fractures: Yes - *Social History Last grade of school completed: High school graduate Smoking Status: Former smoker Tobacco Type: cigarettes Alcohol Intake: never Alcohol Intake Frequency:: holidays/special occasions only Substance Use Type: denies use *Occupational Status:: disabled Housing: house Household Members: spouse *Travel in the last 8 weeks: Inside the [place] - Psychiatric History Pschychiatric History:: Reports:: Depression Family Hx:: Cancer, Kidney Disease Review of Systems - Review of Systems Review of systems:: pertinent systems reviewed and negative unless documented below Meds Home Medications Medication Instructions Recorded Confirmed Type Ergocalciferol (Vitamin D2) 50,000 units PO WEEKLY 06/01/20 12/14/20 History [Drisdol] Spironolactone 50 mg PO DAILY 06/01/20 12/14/20 History bisoproloL fumarate [Bisoprolol 10 mg PO BID 06/01/20 12/14/20 History 10mg Tablet] lamoTRIgine [Lamotrigine] 100 mg PO DAILY 06/01/20 12/14/20 History Amlodipine Besylate/Benazepril See Rx Instructions .ROUTE .COMPLEX 11/15/20 12/14/20 History [Amlodipine-Benazepril 10-40 mg] Atorvastatin Calcium [Lipitor 20mg See Rx Instructions .ROUTE .COMPLEX 11/15/20 12/14/20 History Tab] Hydralazine HCl See Rx Instructions .ROUTE .COMPLEX 11/15/20 12/14/20 History Insulin Glargine,Hum.rec.anlog 100 unit SQ HS 11/15/20 12/14/20 History [Lantus Solostar U-100 Insulin] [place] Carbonate See Rx Instructions .ROUTE .COMPLEX 11/15/20 12/14/20 History Sertraline HCl [Zoloft] 100 mg PO DAILY 11/15/20 12/14/20 History hydroCHLOROthiazide [HCTZ 25mg See Rx Instructions .ROUTE .COMPLEX 11/15/20 12/14/20 History tab] Aspirin See Rx Instructions .ROUTE .COMPLEX 12/14/20 12/14/20 History Dulaglutide [Trulicity] See Rx Instructions .ROUTE .COMPLEX 12/14/20 12/14/20 History Insulin Lispro [Insulin Lispro See Rx Instructions .ROUTE .COMPLEX 12/14/20 12/14/20 History Kwikpen U-100] Allergies Allergy/AdvReac Type Severity Reaction Status Date / Time No Known Allergies Allergy Verified 12/14/20 07:05 Exam I & O for Last 24 hours: Intake & Output 12/11/20 12/12/20 12/13/20 12/14/20 11:59 11:59 11:59 11:59 Weight 280 lb - Constitutional no acute distress - *Routine HEENT Exam Head: Present: normocephalic Eye: Present: other ENT: Present: other - *Routine Respiratory Exam Present: CTA bilaterally - *Routine Cardiovascular Exam Present: RRR - *Routine Abdominal Exam Present: soft - *Routine Rectal Exam Rectal:: deferred - *Routine Genitalia Exam Genitalia:: deferred Assessment and Plan - Assessment and plan all Dx Assessment and Plan for all problems:: Plan for upper endoscopy to assess mechanical etiology for possible cervical dysphagia. If this is unremarkable may need ENT and/or modified barium swallow
[2020-12-14 07:12] VITALS: BP 184/98; PULSE 88; RESP 18; TEMP 36.6; O2SAT 99
[2020-12-14 07:27] VITALS: O2SAT 99
--- NOTE | 2020-12-14 07:43 | P.PCN_ITS ---
- Procedure: Date: 12/14/20 Patient Date of :: 1975 Procedure Performed:: Esophagogastroduodenoscopy with biopsies Indications:: Patient is a 45-year-old diabetic from [place] referred by Dr. Dean for upper endoscopy. Patient gives a longstanding history of dysphagia type symptoms. She states that she is unable to take her pertinent medications . She states that they feel like they become lodged in her throat. Performing Provider:: Luther Muhammad MD Referring Provider:: Jude Dean MD Sedation:: MAC sedation Procedure:: Patient was positioned in lateral decubitus position. Adequate intravenous sedation was achieved with anesthesia titration of propofol. Please note that she required an appreciable amount of propofol for adequate sedation. Olympus endoscope was inserted via the oropharynx. Esophagus was cannulated and the endoscope was advanced. Esophagus appeared normal. Gastroesophageal junction was encountered at approximately 40 cm from the incisors. Stomach was cannulated and insufflated. Retroflexion was performed. However, good visualization of the gastroesophageal junction was unable to be achieved. There was some minimal amount of food matter present within the stomach. Overall gastric lining appeared unremarkable. Endoscope was advanced through the pylorus. Duodenum appeared unremarkable. Gastric antral mucosal biopsies obtained for CLOtest for H. pylori. Gastric antral mucosal biopsies obtained for histopathologic analysis. Couple biopsies were obtained in the mid to distal esophagus to evaluate for microscopic esophagitis. Stomach was desufflated and the endoscope was withdrawn. Findings:: Unremarkable appearing upper endoscopy Unable to visualize gastroesophageal junction well Some retained minimal food matter Recommendations:: No intraluminal evidence of an etiology for mechanical dysphagia in the cervical esophagus. Pending pathology. May need modified barium swallow, gastric emptying scan, possible ENT evaluation. Complications:: None immediately apparent Estimated blood obtained (mL): 2
[2020-12-14 07:45] VITALS: BP 138/79; PULSE 89; RESP 16; TEMP 36.4; O2SAT 95
[2020-12-14 07:55] VITALS: BP 121/62; PULSE 76; RESP 16; O2SAT 95
--- NOTE | 2020-12-14 07:55 | P.PN_ITS ---
[facility] Anesthesia Checklist - Patient Identification Patient Identification: Arm Band, Guardian - Structural Data Admitted From: Home Planned Operative Procedure/s: egd Consent for Planned Operative Procedure(s) Verified: Yes Verified Documents: History and Physical - NPO Status Verified Time NPO: 00:00 - Additional verifications Patient : No Anesthesia Reactions: No Hx Blood Transfusions: No Blood Transfusion Reaction: No Cephalosporin Allergy: No Previous Colonoscopy: Yes - Cardiovascular Assessment Heart Sounds: S1 & S2 Pulse Strength: Baseline Pulse Rhythm: Regular Peripheral Edema: No - Airway Assessment C-Spine Mobility Assessed: Yes TMJ Mobility Assessed: Yes Dentition: Good Dentition - Neurological Assessment Level of Consciousness: Awake, Alert, Appropriate Hx Seizures: No Numbness or tingling in extremities: No - Anesthesia Plan Anesthesia Risk discussed: Yes Anesthesia Plan: Verified ASA Class: III Anesthesia Type: MAC [facility] History I have reviewed the patient's past medical history: Yes Medical History: Reports:: Depression, Diabetes Mellitus Type 2, Gastroesophageal Reflux Disease(GERD), Home Oxygen, Hyperlipidemia, Hypertension Denies:: Cancer, Diabetes Mellitus Type 1, Internal Pacemaker, MRSA, Seizures *Have you ever received a pneumonia vaccine?: No *Have you received a flu vaccine this season?: No Anesthesia experience/problems:: none Other Surgeries: Yes: Appendectomy, Cardiac Catheterization, Cholecystectomy, C- section, Hernia Repair, Hysterectomy-Total. No: Pacemaker Amputation: Yes (Left pinky toe amputated ) Fractures: Yes - *Social History Last grade of school completed: High school graduate Smoking Status: Former smoker Tobacco Type: cigarettes Alcohol Intake: never Alcohol Intake Frequency:: holidays/special occasions only Substance Use Type: denies use *Occupational Status:: disabled Housing: house Household Members: spouse *Travel in the last 8 weeks: Inside the [place] - Psychiatric History Pschychiatric History:: Reports:: Depression Family Hx:: Cancer, Kidney Disease
[2020-12-14 08:05] VITALS: BP 146/73; PULSE 76; RESP 16; O2SAT 96
[2020-12-14 08:15] VITALS: BP 152/85; PULSE 76; RESP 16; O2SAT 96
== END 2020-12-14 08:15 | disposition home or self-care (01) ==
LOC: OUTP 06:25
PROVIDERS: PCP Family Medicine; Visit Provider Surgery
PROC: 0DJ08ZZ Inspection of Upper Intestinal Tract, Via Natural or Artificial Opening Endoscopic (ICD-10-PCS; CPT 43235; principal; 2020-12-14 08:00)
DX: R13.19 Other dysphagia (principal); E11.9 Type 2 diabetes mellitus without complications; Z99.81 Dependence on supplemental oxygen; E78.5 Hyperlipidemia, unspecified; I10 Essential (primary) hypertension; K21.9 Gastro-esophageal reflux disease without esophagitis; Z90.49 Acquired absence of other specified parts of digestive tract; Z87.891 Personal history of nicotine dependence; Z79.4 Long term (current) use of insulin
CPT/HCPCS: 43239; 87339

== ENCOUNTER 2021-01-13 19:46 | Emergency (ER) | payer MEDICAID, SELFPAY ==
--- NOTE | 2021-01-13 20:32 | CT_ITS ---
PROCEDURE INFORMATION: Exam: CT Head Without Contrast Exam date and time: 01/13/2021 8:32 PM Age: 45 years old Clinical indication: Other: Elevated BP headache; Additional info: Headache, ich suspected elevated BP TECHNIQUE: Imaging protocol: Computed tomography of the head without contrast. 3D rendering (Not supervised by radiologist): MIP and/or 3D reconstructed images were created by the technologist. Radiation optimization: All CT scans at this facility use at least one of these dose optimization techniques: automated exposure control; mA and/or kV adjustment per patient size (includes targeted exams where dose is matched to clinical indication); or iterative reconstruction. COMPARISON: No relevant prior studies available. FINDINGS: Brain: Normal. No hemorrhage. Unremarkable white matter. No mass effect. Cerebral ventricles: Benign asymmetry in the lateral ventricles with the right lateral ventricle. Larger than the left. This is felt to represent normal variation. Paranasal sinuses: Visualized sinuses are unremarkable. No fluid levels. Mastoid air cells: Visualized mastoid air cells are well aerated. Vasculature: Intraranial artery density is normal. Bones/joints: Unremarkable. No acute fracture. Soft tissues: Unremarkable. IMPRESSION: No acute intracranial abnormality.
--- NOTE | 2021-01-13 20:32 | XR_ITS ---
PROCEDURE INFORMATION: Exam: XR Chest Exam date and time: 01/13/2021 8:32 PM Age: 45 years old Clinical indication: Other: Elevated BP; Additional info: HTN TECHNIQUE: Imaging protocol: XR of the chest. Views: 1 view. COMPARISON: CR [id number] XR chest portable 12/14/2017 11:52 PM FINDINGS: Lungs: Unremarkable. No consolidation. Pleural spaces: Unremarkable. No pleural effusion. No pneumothorax. Heart/Mediastinum: Unremarkable. No cardiomegaly. Bones/joints: There are degenerative changes noted within the thoracic spine. Narrowing and degenerative changes of the acromioclavicular joint spaces is evident. No fracture. IMPRESSION: No acute findings.
--- NOTE | 2021-01-13 20:35 | ECG_ITS ---
APPROVED REPORT Exam: Resting ECG HR:97 bpm ECG Measurements Heart Rate 97 AXES MI 158 P 63 QRSd 78 QRS 13 QT 396 T 53 QTc 502 Conclusion Normal sinus rhythm Prolonged QT Abnormal ECG Electronically signed by : Jude Betancur MD 01/14/2021 09:10:55
[2021-01-13 20:36] VITALS: BP 202/110; PULSE 103; RESP 18; TEMP 36.6; O2SAT 98; BMI 47.6
[2021-01-13 20:44] LABS: POC Glucose,Bedside 345 (70-110)
--- NOTE | 2021-01-13 20:45 | HMH.EDGENADL ---
ED Disposition Clinical Impression: Uncontrolled hypertension Disposition: Home, Self-Care Condition on Discharge: Fair Instructions: Treatments for High Blood Pressure: More Than Just Taking a Pill, Essential Hypertension Additional Instructions: You have been evaluated for elevated blood pressure, likely due to inability to take medication. Please take all of your home medications as prescribed. Try to follow a diet and exercise plan. Follow-up with your primary care doctor. Return to the emergency department for any new or worsening symptoms. Referrals: Carlos Dean MD [Primary Care Provider] - Time of Disposition: 22:45 - Critical Care Critical Care Time: No Attestation: On 01/13/21, the high probability of a clinically significant, sudden or life threatening deterioration of the following system(s) required my full and direct attention, intervention and personal management. The time I documented below is in addition to time spent performing reported procedures but includes the following listed in this critical care notation. Medical Decision Making - Medical Records Medical records reviewed: Yes: I reviewed the patient's medical records. - Goyo Inquiry Pt receiving controlled substance: No Vital Signs: 01/13/21 20:36 Temperature 97.8 F Temperature Source Oral Pulse Rate [Right Brachial] 103 H Respiratory Rate 18 Blood Pressure [Right Arm] 202/110 H Blood Pressure Mean [Right Arm] 140 Blood Pressure Source [Right Arm] Automatic Cuff Blood Pressure Position [Right Arm] Sitting 02 Sat by Pulse Oximetry 98 Oxygen Delivery Method Room Air - Lab Data Lab Results 01/13/21 20:35: POC Glucose 345 H* 01/13/21 20:48: WBC 11.5 H, RBC 4.45, Hgb 12.6, Hct 39.6, MCV 89.0, MCH 28.3, MCHC 31.8, RDW 15.0, Plt Count 304, MPV 8.8, Neut % (Auto) 75.1, Lymph % (Auto) 18.4, Mcpherson % (Auto) 3.9, Eos % (Auto) 2.1, Baso % (Auto) 0.4, Neut # (Auto) 8.6 H, Lymph # (Auto) 2.1, Mcpherson # (Auto) 0.5, Eos # (Auto) 0.2, Baso # (Auto) 0.1 01/13/21 20:48: Sodium 138, Potassium 3.7, Chloride 99, Carbon Dioxide 29, Anion Gap 13.7, BUN 10, Creatinine 0.60, Estimated Creat Clear 110, Estimated GFR 108, Est GFR ( Amer) 130, Glucose 361 H, Calcium 9.1, Total Bilirubin 0.7, AST 31, ALT 33, Alkaline Phosphatase 94, Troponin I 0.02, Total Protein 7.6, Albumin 4.0, Globulin 3.6 H, Albumin/Globulin Ratio 1.1 Result diagrams: 01/13/21 20:48 01/13/21 20:48 Orders (Tests/Meds): ED MEDICATIONS Generic Name Dose Route Start Last Admin Trade Name Freq PRN Reason Stop Dose Admin Bisoprolol Fumarate 10 mg 01/13/21 20:41 Bisoprolol 5mg Tablet PO 02/12/21 20:40 DAILY CORDELIA Sucralfate 1 gm 01/14/21 23:23 Sucralfate 1gm/10ml Susp Udc PO 01/14/21 23:24 ONCE ONE Discontinued Medications Generic Name Dose Route Start Last Admin Trade Name Freq PRN Reason Stop Dose Admin Amlodipine Besylate 10 mg 01/13/21 20:38 Amlodipine 5mg Tablet PO 01/13/21 20:39 ONCE ONE Hydralazine HCl 100 mg 01/13/21 20:38 01/13/21 21:39 Hydralazine Hcl 25mg Tablet PO 01/13/21 20:39 100 mg ONCE ONE Administration Ondansetron HCl 4 mg 01/13/21 21:27 01/13/21 21:40 Ondansetron 4mg/2ml Vial IV 01/13/21 21:28 4 mg ONCE ONE Administration ORDERS Category Date Time Status Troponin I Q3H Lab 01/13/21 23:45 Ordered Troponin I Q3H Lab 01/14/21 02:45 Ordered Urinalysis and Microscopic Stat Lab 01/13/21 20:32 Ordered ECG Request by /Nse Stat Y 01/13/21 20:32 Ordered - CT Data CT Scan: Head Time Received: 22:[address] Reviewed: Yes: I have reviewed the patient's CT results Preliminary Findings: Normal/NAD Findings Narrative: Noncontrast head CT IMPRESSION: No acute intracranial abnormality. Medical Decision Narrative: In summary this is a 45-year-old female with history of hypertension and diabetes presenting to the emergency department with elevated blood pressure, headache, chest ti
[2021-01-13 20:57] LABS: Basophils # 0.1 K/mm3 (0-0.2); Basophils % 0.4 % (0.1-2.0); Eosinophils # 0.2 K/mm3 (0.0-0.4); Eosinophils % 2.1 % (0.1-12.0); Hematocrit 39.6 % (37.0-47.0); Hemoglobin 12.6 g/dL (12.2-16.2); Lymphocytes # 2.1 K/mm3 (0.7-4.5); Lymphocytes % 18.4 % (10-50); Mean Corpuscular HGB Conc 31.8 g/dL (31.8-35.4); Mean Corpuscular Hemoglobin 28.3 pg (27.0-31.2); Mean Platelet Volume 8.8 fl (7.4-10.4); Monocytes # 0.5 K/mm3 (0.1-1.0); Monocytes % 3.9 % (1.7-9.3); Neutrophils # 8.6 K/mm3 (1.8-7.8); Neutrophils % 75.1 % (37.0-80.0); Platelet Count 304 K/mm3 (142-424); Red Blood Count 4.45 M/mm3 (4.20-5.40); White Blood Count 11.5 K/mm3 (4.8-10.8)
[2021-01-13 21:04] LABS: Alanine Aminotransferase 33 U/L (12-78); Albumin/Globulin Ratio 1.1 (1.1-1.8); Alkaline Phosphatase 94 U/L (38-126); Anion Gap 13.7 mEq/L (5-15); Aspartate Amino Transferase 31 U/L (14-36); Bilirubin,Total 0.7 mg/dl (0.2-1.3); Blood Urea Nitrogen 10 mg/dl (7-17); Calcium 9.1 mg/dl (8.4-10.2); Carbon Dioxide 29 mmol/L (22.0-30.0); Chloride 99 mmol/L (98-107); Creatinine Clearance Estimated 110 mL/min (50-200); Estimated Glomerular Filt Rate 108 ml/min (>60); GFR (African American) 130 ML/MIN (>60); Globulin 3.6 g/dL (1.3-3.2); Glucose 361 mg/dl (74-100); Potassium 3.7 mmoL/L (3.5-5.1); Sodium 138 mmol/L (136-145); Total Protein,Serum 7.6 g/dl (6.3-8.2)
[2021-01-13 21:15] LABS: Troponin I 0.02 ng/ml (0.00-0.034)
[2021-01-14 00:38] VITALS: BP 202/110; PULSE 88; RESP 16; TEMP 36.6; O2SAT 97
== END 2021-01-14 01:01 | disposition home or self-care (01) ==
PROVIDERS: Emergency Medicine; Emergency Provider Emergency Medicine; PCP Family Medicine
DX: I16.0 Hypertensive urgency (principal); E11.65 Type 2 diabetes mellitus with hyperglycemia; K21.9 Gastro-esophageal reflux disease without esophagitis; E78.5 Hyperlipidemia, unspecified; Z79.899 Other long term (current) drug therapy; Z87.891 Personal history of nicotine dependence
CPT/HCPCS: 70450; 71045; 80053; 82962; 84484; 85025; 93005; 96376; 99282; J2405

== ENCOUNTER → 2021-01-30 12:48 | Outpatient (CLI) | payer MEDICAID, SELFPAY ==
--- NOTE | 2021-01-30 12:49 | FL_ITS ---
PROCEDURE: FL BARIUM SWALLOW MODIFIED CLINICAL INDICATION: vomiting COMPARISON: No exams were available for comparison TECHNIQUE: Patient administered varying consistencies of barium contrast, while viewed in lateral position under real-time fluoroscopy with cine recording. FLUOROSCOPY TIME:56 seconds The study was performed in conjunction with speech pathologist. Please see that report & recommendations. FINDINGS: Patient was given varying consistencies of barium. No aspiration or penetration. IMPRESSION: Unremarkable modified barium swallow. Please see speech pathologist report and recommendations. Dictated by: Channing Seymour MD 01/30/2021 18:10 Channing Seymour MD in [place] 01/30/2021 18:10
--- NOTE | 2021-01-30 15:03 | HMH.SLMBS2 ---
Speech & Language Evaluation Speech/Language Mod Barium Swallow Start: 01/30/21 14:53 Freq: once Status: Complete Protocol: Document 01/30/21 14:53 NUSRAT (Rec: 01/30/21 15:03 NUSRAT [id number]) General Information General Current Food Consistancy Regular,Thin Liquids Dentition Good Dentition Oxygen Status Room Air Facial Symmetry Symmetrical Patient Orientation Person,Place,Time Ability to Follow Directions Excellent Communication Ability No Impairment MBS Recommendations Diet Dietary Recommendations Regular,Thin Liquids Treatment/Strategies Strategy/Precaution Recommend Sitting Upright (90 deg),Small Bites and Sips,Alternate Liquids/Solids Mod Barium Swallow Impressions Summary and Impressions Oral Phase Impression No Impairment (WFL) Oral Phase Summary Ms. Maldonado was given the following consistencies: thins via straw and open cup, pudding, regular, and pill with thin wash. No oral phase impairments noted during evaluation Pharyngeal Phase Impression No Impairment (WFL) Pharyngeal Phase Summary No pharyngeal phase impairments noted. Speech/Language MBS Assessment/Goals/Plan Assessment Date of Evaluation: 01/30/21 Evaluation Type Initial Certification Assessment/Problems Dysphagia Does Patient Qualify for Service No Qualify/Failure Comment No overt signs or symptoms of dysphagia were noted during evaluation. Recommendations PHYSICIAN CERTIFICATION: The specified therapy services are required, authorized, and reviewed every 30 days. Diet Recommendations Normal Liquid Type Recommendations Normal/Thin SL Swallow Guidelines Standard Aspiration Prec. Dysphagia Swallow Precautions/Strategies Sitting Upright (90 deg),Small Bites and Sips,Alternate Liquids/Solids Plan Pt/Guardian verbally ack understanding Yes of dx/prognosis/goals G -code Required No Mod Barium Swallow Setup Exam Setup Radiologist Channing Seymour Level of Consciousness Awake,Alert,Appropriate, Follows Commands Position (degrees) 90 Mod Barium Swallow-Lat View Textures Lateral View Food Presentation Thin Liquid via Cup,Thin Liquid via Straw,Barium Tablet ,Regular Food,Pudding Oral Phase Labial Closure No Impairment (WFL) Bolus
== END ==
PROVIDERS: PCP Family Medicine; Visit Provider Surgery
DX: R11.2 Nausea with vomiting, unspecified (principal)
CPT/HCPCS: 70371; 92611

== ENCOUNTER → 2021-02-06 09:45 | Outpatient (CLI) | payer MEDICAID, SELFPAY | PROVIDERS: PCP Family Medicine; Visit Provider Surgery | DX: R11.2 Nausea with vomiting, unspecified (principal) ==

== ENCOUNTER → 2021-02-27 14:38 | Outpatient (CLI) | payer MEDICAID, SELFPAY ==
[2021-02-27 18:02] LABS: Hemoglobin A1C 10.6 % (4.0-6.0)
== END ==
PROVIDERS: Visit Provider Family Medicine
DX: E11.9 Type 2 diabetes mellitus without complications (principal); M54.9 Dorsalgia, unspecified; Z79.4 Long term (current) use of insulin
CPT/HCPCS: 83036; 87086; 87088; 87186

== ENCOUNTER → 2021-04-10 16:49 | Outpatient (CLI) | payer MEDICAID, SELFPAY ==
[2021-04-10 19:05] LABS: Alanine Aminotransferase 32 U/L (12-78); Albumin Level 4.2 g/dl (3.5-5.0); Albumin/Globulin Ratio 1.4 (1.1-1.8); Alkaline Phosphatase 104 U/L (38-126); Aspartate Amino Transferase 32 U/L (14-36); Bilirubin,Total 0.8 mg/dl (0.2-1.3); Blood Urea Nitrogen 9 mg/dl (7-17); Calcium 9.5 mg/dl (8.4-10.2); Carbon Dioxide 28 mmol/L (22.0-30.0); Chloride 95 mmol/L (98-107); Chol/HDL Ratio 3.6 (1-3.5); Cholesterol 154 mg/dl (140-200); Estimated Glomerular Filt Rate 90 ml/min (>60); GFR (African American) 109 ML/MIN (>60); HDL Cholesterol 43 mg/dl (40-60); Sodium 134 mmol/L (136-145); Total Protein,Serum 7.2 g/dl (6.3-8.2); Triglycerides 201 mg/dl (30-150); VLDL Cholesterol 40 mg/dL (0-40)
[2021-04-10 19:12] LABS: Hemoglobin A1C 10.1 % (4.0-6.0)
[2021-04-10 19:18] LABS: Glucose 402 mg/dl (74-100)
[2021-04-10 19:22] LABS: Free T4 (Free Thyroxine) 1.09 ng/dl (0.78-2.19)
[2021-04-10 19:27] LABS: 25-OH Vitamin D, Total < 12.8 ng/mL (30-100)
[2021-04-10 19:35] LABS: Creatinine,Urine Random 32 mg/dL (Not Estab.)
[2021-04-10 19:44] LABS: Basophils # 0.1 K/mm3 (0-0.2); Eosinophils # 0.4 K/mm3 (0.0-0.4); Eosinophils % 4.1 % (0.1-12.0); Hematocrit 42.4 % (37.0-47.0); Hemoglobin 13.4 g/dL (12.2-16.2); Lymphocytes # 1.5 K/mm3 (0.7-4.5); Lymphocytes % 16.9 % (10-50); Mean Corpuscular HGB Conc 31.6 g/dL (31.8-35.4); Mean Corpuscular Hemoglobin 27.9 pg (27.0-31.2); Mean Corpuscular Volume 88.4 fl (81-99); Mean Platelet Volume 8.8 fl (7.4-10.4); Monocytes # 0.3 K/mm3 (0.1-1.0); Monocytes % 3.5 % (1.7-9.3); Neutrophils # 6.7 K/mm3 (1.8-7.8); Neutrophils % 74.6 % (37.0-80.0); Platelet Count 336 K/mm3 (142-424); Red Blood Count 4.79 M/mm3 (4.20-5.40); Red Cell Distribution Width 15.6 % (11.5-17.5)
== END ==
PROVIDERS: Visit Provider Nurse Practitioner Family
DX: E11.9 Type 2 diabetes mellitus without complications (principal); E03.9 Hypothyroidism, unspecified; E55.9 Vitamin D deficiency, unspecified; B96.20 Unspecified Escherichia coli [E. coli] as the cause of diseases classified elsewhere; R82.90 Unspecified abnormal findings in urine; R53.83 Other fatigue; K59.00 Constipation, unspecified; Z79.4 Long term (current) use of insulin
CPT/HCPCS: 80053; 80061; 82043; 82306; 82570; 83036; 84439; 84443; 85025; 87086; 87088; 87186

== ENCOUNTER → 2021-05-08 15:04 | Outpatient (POV) | payer MEDICAID, SELFPAY ==
[2021-05-08 16:52] LABS: Microscopic, Urine URINE MICROSCOPIC (MICROSCOPIC)
[2021-05-08 17:47] LABS: Appearance,Urine CLOUDY (Clear); Bilirubin,Urine Negative (Negative); Blood, Urine TRACE-L (Negative); Color,Urine YELLOW (Yellow); Glucose,Urine (UA) 3+ (Negative); Ketones,Urine Negative (Negative); Leukocyte Esterase,Urine TRACE (Negative); Nitrate,Urine Negative (Negative); PH,Urine 5.5 (5.0-8.5); Protein,Urine 1+ (Negative); Specific Gravity, Urine 1.025 (1.005-1.030); Urobilinogen,Urine 0.2 EU/dl (0.2)
[2021-05-08 17:50] LABS: Creatinine,Urine Random 60 mg/dL (Not Estab.)
[2021-05-08 17:58] LABS: Bacteria,Urine 4+ /lpf; RBC,Urine Occasional #/hpf (0-3); Yeast,Urine 3+ /lpf
== END ==
PROVIDERS: Visit Provider Internal Medicine Nephrology
DX: N39.0 Urinary tract infection, site not specified (principal); B96.20 Unspecified Escherichia coli [E. coli] as the cause of diseases classified elsewhere
CPT/HCPCS: 81001; 82570; 84155; 87086; 87088; 87186

== ENCOUNTER → 2021-05-22 12:51 | Outpatient (CLI) | payer MEDICAID, SELFPAY ==
--- NOTE | 2021-05-22 12:54 | US_ITS ---
FINAL REPORT TECHNIQUE: Ultrasound images of the kidneys and bladder were obtained. CLINICAL HISTORY: FLANK PAIN,DYSURIA,PROTEINURIA FINDINGS: The right kidney measures 11.8 cm in length. It is normal in echogenicity. There is no hydronephrosis. The left kidney measures 13.7 cm in length. It is normal in echogenicity. There is no hydronephrosis. There is mild splenomegaly measuring 14.9 cm. IMPRESSION: Mild splenomegaly. No hydronephrosis. Reviewed, Interpreted and Dictated by Luther Cruz III, MD Transcribed by Bridget Abraham Authenticated by Luther Cruz III, MD on 05/23/2021 12:38:14 PM [facility]
== END ==
PROVIDERS: PCP Family Medicine; Visit Provider Internal Medicine Nephrology
DX: R30.0 Dysuria (principal); R10.9 Unspecified abdominal pain; R80.9 Proteinuria, unspecified
CPT/HCPCS: 76770

== ENCOUNTER → 2021-05-26 18:17 | Outpatient (CLI) | payer MEDICAID, SELFPAY ==
--- NOTE | 2021-05-26 18:22 | XR_ITS ---
PROCEDURE INFORMATION: Exam: XR Left Ankle Exam date and time: 05/26/2021 6:22 PM Age: 45 years old Clinical indication: Pain; Ankle; Left TECHNIQUE: Imaging protocol: XR Left ankle. Views: 3 or more views. COMPARISON: CR XR FOOT LT MIN 3V 10/26/2019 9:12 PM FINDINGS: Bones/joints: Flatfoot deformity in the tarsals with Charcot change. Soft tissues: Normal. IMPRESSION: Flatfoot deformity in the tarsals with Charcot change.
--- NOTE | 2021-05-26 18:22 | XR_ITS ---
PROCEDURE INFORMATION: Exam: XR Right Ankle Exam date and time: 05/26/2021 6:22 PM Age: 45 years old Clinical indication: Pain; Ankle; Right TECHNIQUE: Imaging protocol: XR Right ankle. Views: 3 or more views. COMPARISON: No relevant prior studies available. FINDINGS: Bones/joints: Normal ankle mortise. Flatfoot deformity. Soft tissues: Normal. IMPRESSION: No acute findings.
--- NOTE | 2021-05-26 18:22 | XR_ITS ---
PROCEDURE INFORMATION: Exam: XR Right Foot Complete; Alignment Exam date and time: 05/26/2021 6:22 PM Age: 45 years old Clinical indication: Pain; Foot; Right TECHNIQUE: Imaging protocol: XR Right foot. Views: 3 or more views. COMPARISON: No relevant prior studies available. FINDINGS: Bones/joints: Flatfoot deformity. No acute fracture. Joint spaces are preserved. No dislocation or subluxation. Soft tissues: Soft tissue swelling of the dorsum of the right foot. IMPRESSION: 1. Flatfoot deformity. 2. Soft tissue swelling of the dorsum of the right foot.
--- NOTE | 2021-05-26 18:22 | XR_ITS ---
PROCEDURE INFORMATION: Exam: XR Left Foot Complete; Alignment Exam date and time: 05/26/2021 6:22 PM Age: 45 years old Clinical indication: Pain; Foot; Left; Prior surgery TECHNIQUE: Imaging protocol: XR Left foot. Views: 3 or more views. 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 Degenerative changes at the tarsal navicular. Soft tissues: Normal. IMPRESSION: 1. 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 2. Degenerative changes at the tarsal navicular.
== END ==
PROVIDERS: PCP Family Medicine; Visit Provider Podiatrist
DX: M79.672 Pain in left foot (principal); M25.572 Pain in left ankle and joints of left foot; M79.671 Pain in right foot; M25.571 Pain in right ankle and joints of right foot
CPT/HCPCS: 73610; 73630

== ENCOUNTER → 2021-07-03 16:54 | Outpatient (CLI) | payer MEDICAID, SELFPAY ==
[2021-07-03 13:51] LABS: Alanine Aminotransferase 37 U/L (12-78); Albumin Level 3.8 g/dl (3.5-5.0); Albumin/Globulin Ratio 1.2 (1.1-1.8); Alkaline Phosphatase 97 U/L (38-126); Anion Gap 14.3 mEq/L (5-15); Aspartate Amino Transferase 33 U/L (14-36); Bilirubin,Total 0.8 mg/dl (0.2-1.3); Blood Urea Nitrogen 17 mg/dl (7-17); Calcium 8.9 mg/dl (8.4-10.2); Carbon Dioxide 22 mmol/L (22.0-30.0); Chloride 103 mmol/L (98-107); Chol/HDL Ratio 3.4 (1-3.5); Cholesterol 180 mg/dl (140-200); Estimated Glomerular Filt Rate 107 ml/min (>60); GFR (African American) 130 ML/MIN (>60); Globulin 3.2 g/dL (1.3-3.2); Glucose 292 mg/dl (74-100); HDL Cholesterol 53 mg/dl (40-60); Potassium 4.3 mmoL/L (3.5-5.1); Sodium 135 mmol/L (136-145); Triglycerides 225 mg/dl (30-150); VLDL Cholesterol 45 mg/dL (0-40)
[2021-07-03 14:00] LABS: Basophils # 0.1 K/mm3 (0-0.2); Basophils % 0.8 % (0.1-2.0); Eosinophils # 0.3 K/mm3 (0.0-0.4); Eosinophils % 3.1 % (0.1-12.0); Hematocrit 37.8 % (37.0-47.0); Hemoglobin 12.3 g/dL (12.2-16.2); Lymphocytes # 1.6 K/mm3 (0.7-4.5); Lymphocytes % 16.3 % (10-50); Mean Corpuscular HGB Conc 32.5 g/dL (31.8-35.4); Mean Corpuscular Hemoglobin 28.3 pg (27.0-31.2); Mean Corpuscular Volume 87.2 fl (81-99); Mean Platelet Volume 9.3 fl (7.4-10.4); Monocytes # 0.4 K/mm3 (0.1-1.0); Monocytes % 4.3 % (1.7-9.3); Neutrophils # 7.5 K/mm3 (1.8-7.8); Neutrophils % 75.5 % (37.0-80.0); Platelet Count 264 K/mm3 (142-424); Red Blood Count 4.34 M/mm3 (4.20-5.40); Red Cell Distribution Width 15.8 % (11.5-17.5); White Blood Count 9.9 K/mm3 (4.8-10.8)
[2021-07-03 14:02] LABS: Direct LDL Cholesterol 71.98 mg/dL (100-129)
[2021-07-03 14:10] LABS: 25-OH Vitamin D, Total < 12.8 ng/mL (30-100); T4 (Thyroxine) 10.8 ug/dl (5.53-11.0)
[2021-07-03 14:24] LABS: Thyroid Stimulating Hormone 2.38 uIU/mL (0.465-4.68)
[2021-07-03 15:02] LABS: Hemoglobin A1C 10.1 % (4.0-6.0)
[2021-07-04 10:20] LABS: C-Peptide 2.4 ng/mL (1.1-4.4)
== END ==
PROVIDERS: PCP Nurse Practitioner Family; Visit Provider Nurse Practitioner Family
DX: E11.9 Type 2 diabetes mellitus without complications (principal); E55.9 Vitamin D deficiency, unspecified; Z79.4 Long term (current) use of insulin
CPT/HCPCS: 80053; 80061; 82306; 83036; 84436; 84443; 84681; 85025

== ENCOUNTER → 2021-07-10 06:05 | Outpatient (CLI) | payer MEDICAID, SELFPAY ==
--- NOTE | 2021-07-10 06:06 | CA_ITS ---
APPROVED REPORT EXAM: Comprehensive 2D, Doppler, and color-flow Echocardiogram Senior [employer] Developer: Kayla Ashley RT(R) Ht: 5 ft 6 in Wt: 300lbs BSA: 2.38 BP: 191/93 mmHg Indications: CP, ex smoker, edema, HTN, hyperlipidemia, abn EKG, GERD, home O2. 2D Dimensions LVOT 2.21 cm (M/F) 1.5-2.5 LA Volume 36.30 mL LA Volume Index 15.31 mL/m2 (M/F) 16-34 M-Mode Dimensions RVDd 3.14 cm (0.9-2.6) LA Diam 3.96 cm (1.9-4.0) LVDd 4.50 cm (3.5-5.7) Ao Diam 2.98 cm (2.0-3.7) LVDs 3.27 cm (3.5-5.7) IVSd 0.93 cm (0.6-1.1) PWd 0.89 cm (0.6-1.1) EF (Teich) 53.20% FS 27.30% EDV (Teich) 92.40 mL ESV (Teich) 43.20 mL LV Diastology E Decel Time 243.00 (160-240 msec) E/A Ratio 1.1 MED E' 7.20 (< 7 cm/sec) E'/MED E' Ratio 12.35 (>14) LAT E' 8.40 (<10 cm/sec) E/LAT E' Ratio 10.58 (>14) Mitral Valve MV E Max Alex. 89.00 (40-130 cm/s) MV A Velocity 79.00 (40-130 cm/s) E/A Ratio 1.13 MV Decel. Time 243.00 (160-240 ms) MV PHT 71.00 ms Left Ventricle Left atrium is mildly enlarged, left ventricle is normal size, mild concentric left ventricular hypertrophy, estimated ejection fraction 55% with no regional wall motion abnormality, grade 1 diastolic dysfunction seen without tissue Doppler evidence of trace left atrial pressure. Right Ventricle Right atrium and right ventricle are mildly enlarged with normal contractility. Aortic Valve Aortic valve is minimally thickened and fibrosed there is no aortic stenosis or aortic insufficiency. Mitral Valve Mitral valve is grossly normal, there is mild mitral regurgitation. Tricuspid Valve Tricuspid valve grossly normal, there is mild tricuspid regurgitation, tricuspid regurgitation jet velocity is inadequate for calculation of the right ventricular systolic pressure. Pulmonic Valve Pulmonic valve is poorly visualized. Great Vessels Aortic root is normal size. Inferior vena cava is poorly visualized. Pericardium No significant pericardial effusion noted. Conclusion 1. Mild biatrial enlargement, normal left ventricular size, mild concentric left ventricular hypertrophy, estimated ejection fraction 55% with no regional wall motion abnormality, grade 1 diastolic dysfunction seen without tissue Doppler evidence of late left atrial pressure. 2. Mildly enlarged right ventricle with normal contractility. 3. Mild mitral and tricuspid regurgitation. 4. No significant pericardial effusion noted. 5. Inferior vena cava is poorly visualized. Electronically signed by : Dario Chen MD 07/10/2021 21:12:46
--- NOTE | 2021-07-10 06:06 | NM_ITS ---
APPROVED REPORT Exam: Nuclear Stress Test Indication: Chest pain, Abnormal EKG, SOB, HTN, DM, High cholesterol, Former tobacco use, Family history Patient Location: Outpatient Stress Tech: Mackenzie Zapata NM Tech:Eda Perales, ARRT, RT (R)(N) Ht: 5 ft 6 in Wt: 300 lbs Bra Size: DDD HR: 82 bpm BP: 204/106 mmHg BSA: 2.38 m2 BMI: 48.4 History: Chest pain, Abnormal EKG, SOB, HTN, DM, High cholesterol, Former tobacco use, Family history Procedure: Patient received a 0.4 mg of intravenous Lexiscan, resting heart rate 82 bpm, resting blood pressure 204/106 mmHg, with Lexiscan maximum heart rate achived was 89 bpm which is Less than 85 % of the maximum predicted heart rate and blood pressure was 223/102 mmHg. With Lexiscan, patient denied any complaint of chest pain. Electrocardiogram Resting electrocardiogram showed sinus rhythm with Lexiscan there is less than 1.[address] segment depression noted from the baseline EKG. The EKG portion of the Lexiscan is nondiagnostic. Cardiac Stress and Resting SPECT Images: Cardiac Stress and Resting SPECT images were obtained using technetium 99m Myoview 31.2 mCi stress and 10.56 mCi at rest. Patient unable to lay on stomach for prone images due to being SOB. Gated SPECT analysis of segmental wall motion and calculation of the ejection fraction also done. Cardiac stress and rest SPECT images show mild fixed defect in the anterior wall with normal contractility and the gated SPECT is likely secondary to soft tissue attenuation, no reversible ischemia seen, computer derived ejection fraction is 81% with no regional wall motion abnormality, right ventricle is normal size and contractility. Conclusion: 1. The EKG portion of the Lexiscan is nondiagnostic. 2. No scintigraphic evidence of reversible ischemia seen, computer derived ejection fraction is 81% with no regional wall motion abnormality, right ventricle is normal size and contractility. 3. Likely normal Lexiscan Myoview study. Electronically signed by : Dario Chen MD 07/10/2021 17:52:15
--- NOTE | 2021-07-10 06:06 | CA_ITS ---
APPROVED REPORT Exam: Pharmacologic Technologist: Mackenzie Stone, Ht: 5 ft 7 in Wt: 318 lbs BSA: 2.46 m2 HR: 82 bpm BP: 204/106 mmHg Medical History Medications: Aspirin,,,,, Lispro,,,,, Carvedilol,,,,, LaMotrigine,,,,, Glargine,,,,, DulaGLUTIDE,,,,, AtrovASTATIN,,,,, LiTHIUM carbonate,,,,, TriaMcinalone,,,,, Amlodipine-Benazepril,,,,, AcetONIDE,,,,, Isosorbide Monoitrate,,,,, Stress Test Details Test: LEXISCAN HR Resting HR: 85 bpm Max Heart Rate (APMHR): 173 bpm Max HR Achieved: 99 bpm Target HR (85% APMHR): 147 bpm % of APMHR: 57 Recovery HR: 88 bpm BP Resting BP: 204/106 mmHg Max BP: 223/102 mmHg Recovery BP: 215.0/97.0 mmHg ECG Clinical Exercise duration: 04:01 min Highest Stage Achieved: Exercise capacity: 1.0 METs Stress ECG Conclusion *increased Coreg to 25mg PO BID Symptoms: Chest pain & SOB with Lexiscan Arrythmias/Ectopy: No ST-T Changes: <1.5mm ST Segment changes Conclusion: The EKG portion of the Lexiscan is nondiagnostic. Test Summary . . . . . Stop exercise at 04:01 . . . . . . Electronically signed by : Dario Chen MD 07/10/2021 17:48:03
--- NOTE | 2021-07-10 08:17 | HMH.ITSHM ---
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 []LITHIUM LAMOTRIGINE ISOSORBIDE INSULIN DULAGLUTIDE CARVEDILOL ATORVASTATIN AMLODIPINE ASA
== END ==
PROVIDERS: PCP Nurse Practitioner Family; Visit Provider Internal Medicine
DX: R07.9 Chest pain, unspecified (principal); R06.01 Orthopnea; E78.5 Hyperlipidemia, unspecified; E11.9 Type 2 diabetes mellitus without complications; E66.01 Morbid (severe) obesity due to excess calories; I11.9 Hypertensive heart disease without heart failure; R60.9 Edema, unspecified; R94.31 Abnormal electrocardiogram [ECG] [EKG]; Z72.0 Tobacco use; Z79.4 Long term (current) use of insulin; Z68.43 Body mass index [BMI] 50.0-59.9, adult
CPT/HCPCS: 78452; 93017; 93306; A9502; J2785

== ENCOUNTER → 2021-07-24 12:59 | Outpatient (CLI) | payer MEDICAID, SELFPAY ==
--- NOTE | 2021-07-24 13:00 | MM_ITS ---
PROCEDURE INFORMATION: Exam: MG Bilateral Screening 3D Mammography Exam date and time: 07/24/2021 1:03 PM Age: 46 years old Clinical indication: Screening examination. Her maternal great grandmother had breast cancer. TECHNIQUE: Imaging protocol: Bilateral Screening tomosynthesis and 2D mammography including computer-aided detection (CAD) when performed. Limited positioning related to mobility impairment. COMPARISON: 1. MG MM DIG SCREENING MAMM BI W/CAD 07/18/2020 3:26 PM 2. MG DIG MAMMO BILAT SCREENING 07/10/2017 9:13 AM FINDINGS: MAMMOGRAPHY: Breast composition: There are scattered areas of fibroglandular density. Mass: None. Architectural distortion: None. Calcifications: No suspicious calcifications. Asymmetric density: None. Skin thickening: None. Axillary adenopathy: None. IMPRESSION: No mammographic evidence of malignancy. Annual screening is recommended unless otherwise clinically indicated. ASSESSMENT: BI-RADS Category 1: Negative
== END ==
PROVIDERS: PCP Family Medicine; Visit Provider Nurse Practitioner Family
DX: Z12.31 Encounter for screening mammogram for malignant neoplasm of breast (principal)
CPT/HCPCS: 77063; 77067

== ENCOUNTER → 2021-08-07 10:48 | Outpatient (CLI) | payer MEDICAID, SELFPAY ==
[2021-08-07 18:29] LABS: Chloride 97 mmol/L (98-107); Potassium 4.4 mmoL/L (3.5-5.1); Sodium 137 mmol/L (136-145)
[2021-08-07 18:32] LABS: Anion Gap 17.4 mEq/L (5-15); Blood Urea Nitrogen 11 mg/dl (7-17); Calcium 10.3 mg/dl (8.4-10.2); Carbon Dioxide 27 mmol/L (22.0-30.0); Estimated Glomerular Filt Rate 90 ml/min (>60); GFR (African American) 109 ML/MIN (>60); Glucose 382 mg/dl (74-100)
[2021-08-07 19:09] LABS: Hemoglobin A1C 10.1 % (4.0-6.0)
== END ==
PROVIDERS: PCP Family Medicine; Visit Provider Family Medicine
DX: E11.40 Type 2 diabetes mellitus with diabetic neuropathy, unspecified (principal); Z79.4 Long term (current) use of insulin
CPT/HCPCS: 80048; 83036

== ENCOUNTER 2021-10-13 14:09 | Emergency (ER) | payer MEDICAID, SELFPAY ==
[2021-10-13] VITALS (10 sets, daily range): BP systolic 131–219; BP diastolic 84–110; PULSE 74–96; RESP 15–20; TEMP 36.9; O2SAT 96–99; BMI 48.4
--- NOTE | 2021-10-13 14:23 | ECG_ITS ---
APPROVED REPORT Exam: Resting ECG HR:97 bpm ECG Measurements Heart Rate 97 AXES IN 179 P 47 QRSd 100 QRS -8 QT 369 T 31 QTc 424 Conclusion SINUS RHYTHM LOW QRS VOLTAGE IN PRECORDIAL LEADS [QRS DEFLECTION < 1.0 mV IN CHEST LEADS] PATTERN CONSISTENT WITH PULMONARY DISEASE ABNORMAL ECG UNCONFIRMED REPORT Electronically signed by : Jude Betancur MD 10/13/2021 15:34:00
--- NOTE | 2021-10-13 14:43 | HMH.EDGENADL ---
ED Disposition Clinical Impression: Right groin pain Disposition: Home, Self-Care Condition on Discharge: Good Additional Instructions: Continue your hydrocodone 7.5 mg for pain. Contact Dr. Dean for further care. Referrals: Carlos Dean MD [Primary Care Provider] - - Critical Care Critical Care Time: No Attestation: On 10/13/21, the high probability of a clinically significant, sudden or life threatening deterioration of the following system(s) required my full and direct attention, intervention and personal management. The time I documented below is in addition to time spent performing reported procedures but includes the following listed in this critical care notation. Medical Decision Making - Goyo Inquiry Pt receiving controlled substance: Yes Goyo was queried for this patient: No Reason not queried -: Goyo login issues Risks and benefits of using a controlled substance: were not discussed with pt by me Vital Signs: 10/13/21 14:10 10/13/21 14:30 10/13/21 15:00 Temperature 98.5 F Temperature Source Oral Pulse Rate 91 H 84 Pulse Rate [Apical] 96 H Respiratory Rate 18 17 16 Blood Pressure 185/102 H 204/94 H Blood Pressure [Right Arm] 219/103 H Blood Pressure Mean 129 119 Blood Pressure Mean [Right Arm] 141 Blood Pressure Source [Right Arm] Automatic Cuff Blood Pressure Position [Right Arm] Sitting 02 Sat by Pulse Oximetry 99 97 98 Oxygen Delivery Method Room Air Room Air 10/13/21 15:30 10/13/21 15:43 10/13/21 15:47 Temperature Temperature Source Pulse Rate 86 77 Pulse Rate [Apical] Respiratory Rate 19 20 Blood Pressure 202/110 H 202/110 H 195/106 H Blood Pressure [Right Arm] Blood Pressure Mean 125 122 Blood Pressure Mean [Right Arm] Blood Pressure Source [Right Arm] Blood Pressure Position [Right Arm] 02 Sat by Pulse Oximetry 98 96 Oxygen Delivery Method Room Air Room Air 10/13/21 15:51 10/13/21 15:54 10/13/21 16:02 Temperature Temperature Source Pulse Rate 76 74 76 Pulse Rate [Apical] Respiratory Rate 15 18 15 Blood Pressure 131/104 H 168/84 H 170/87 H Blood Pressure [Right Arm] Blood Pressure Mean 113 112 102 Blood Pressure Mean [Right Arm] Blood Pressure Source [Right Arm] Blood Pressure Position [Right Arm] 02 Sat by Pulse Oximetry 97 96 96 Oxygen Delivery Method Room Air Room Air - Lab Data Lab Results 10/13/21 14:33: WBC 9.5, RBC 4.22, Hgb 12.1 L, Hct 36.2 L, MCV 85.9, MCH 28.6, MCHC 33.3, RDW 15.5, Plt Count 269, MPV 7.3 L, Neut % (Auto) 75.5, Lymph % (Auto) 16.9, Bureau % (Auto) 4.1, Eos % (Auto) 3.1, Baso % (Auto) 0.4, Neut # (Auto) 7.2, Lymph # (Auto) 1.6, Bureau # (Auto) 0.4, Eos # (Auto) 0.3, Baso # (Auto) 0.0 10/13/21 14:33: Sodium 136, Potassium 4.0, Chloride 101, Carbon Dioxide 26, Anion Gap 13.0, BUN 17, Creatinine 0.80, Estimated Creat Clear 81, Estimated GFR 77, Est GFR ( Amer) 93, Glucose 317 H, Calcium 9.3, Total Bilirubin 0.7, AST 36, ALT 36, Alkaline Phosphatase 79, Troponin I < 0.01, Total Protein 7.2, Albumin 3.8, Globulin 3.4 H, Albumin/Globulin Ratio 1.1 Result diagrams: 10/13/21 14:33 10/13/21 14:33 Orders (Tests/Meds): ED MEDICATIONS Generic Name Dose Route Start Last Admin Trade Name Freq PRN Reason Stop Dose Admin Sodium Chloride 10 ml 10/13/21 14:56 Sodium Chloride 0.9% 10ml Flush Syringe IV 11/12/21 14:55 NEEDED PRN Maintain IV Site Discontinued Medications Generic Name Dose Route Start Last Admin Trade Name Freq PRN Reason Stop Dose Admin Labetalol HCl 20 mg 10/13/21 15:35 10/13/21 15:43 Labetalol 5mg/Ml 20ml Mdv IV 10/13/21 15:36 20 mg ONCE ONE Administration Morphine Sulfate 4 mg 10/13/21 15:02 10/13/21 15:19 Morphine 4mg/Ml Syringe IV 10/13/21 15:03 4 mg ONCE ONE Administration Ondansetron HCl 4 mg 10/13/21 15:02 10/13/21 15:19 Ondansetron 4mg/2ml Vial IV 10/13/21 15:03 4 mg ONCE ONE Administr
[2021-10-13 14:59] LABS: Basophils % 0.4 % (0.1-2.0); Eosinophils # 0.3 K/mm3 (0.0-0.4); Eosinophils % 3.1 % (0.1-12.0); Hematocrit 36.2 % (37.0-47.0); Hemoglobin 12.1 g/dL (12.2-16.2); Lymphocytes # 1.6 K/mm3 (0.7-4.5); Lymphocytes % 16.9 % (10-50); Mean Corpuscular HGB Conc 33.3 g/dL (31.8-35.4); Mean Corpuscular Hemoglobin 28.6 pg (27.0-31.2); Mean Corpuscular Volume 85.9 fl (81-99); Mean Platelet Volume 7.3 fl (7.4-10.4); Monocytes # 0.4 K/mm3 (0.1-1.0); Monocytes % 4.1 % (1.7-9.3); Neutrophils # 7.2 K/mm3 (1.8-7.8); Neutrophils % 75.5 % (37.0-80.0); Platelet Count 269 K/mm3 (142-424); Red Blood Count 4.22 M/mm3 (4.20-5.40); Red Cell Distribution Width 15.5 % (11.5-17.5); White Blood Count 9.5 K/mm3 (4.8-10.8)
--- NOTE | 2021-10-13 15:01 | CA_ITS ---
FINAL REPORT TECHNIQUE: Color Doppler, duplex Doppler and compression sonography of the right lower extremity venous system was performed. CLINICAL HISTORY: right groin and thigh pain. Heart cath about a month ago at [place] FINDINGS: If technically difficult exam, very limited. There is no evidence of deep venous thrombosis the visualized veins. The veins are patent and compressible. The right femoral vein is poorly visualized. The peroneal veins are not visualized. IMPRESSION: No evidence of deep venous thrombosis right lower extremity. Reviewed, Interpreted and Dictated by Luther Cruz III, MD Transcribed by Yissel Dhillon Authenticated and [facility]
--- NOTE | 2021-10-13 15:02 | XR_ITS ---
FINAL REPORT CLINICAL HISTORY: right groin pain FINDINGS: RIGHT HIP Three views were obtained. There is no acute fracture or dislocation. Mild degenerative changes are present. No soft tissue abnormality is identified. IMPRESSION: No acute process. Reviewed, Interpreted and Dictated by Luther Cruz III, MD Transcribed by Yissel Dhillon Authenticated and [facility]
[2021-10-13 15:03] LABS: Alanine Aminotransferase 36 U/L (12-78); Albumin Level 3.8 g/dl (3.5-5.0); Albumin/Globulin Ratio 1.1 (1.1-1.8); Alkaline Phosphatase 79 U/L (38-126); Aspartate Amino Transferase 36 U/L (14-36); Bilirubin,Total 0.7 mg/dl (0.2-1.3); Blood Urea Nitrogen 17 mg/dl (7-17); Calcium 9.3 mg/dl (8.4-10.2); Carbon Dioxide 26 mmol/L (22.0-30.0); Chloride 101 mmol/L (98-107); Creatinine Clearance Estimated 81 mL/min (50-200); Estimated Glomerular Filt Rate 77 ml/min (>60); GFR (African American) 93 ML/MIN (>60); Globulin 3.4 g/dL (1.3-3.2); Glucose 317 mg/dl (74-100); Sodium 136 mmol/L (136-145); Total Protein,Serum 7.2 g/dl (6.3-8.2)
--- NOTE | 2021-10-13 15:05 | PC.NURSE ---
Went into room and informed patient she needed to change into a gown for the Doppler. Patient said that was okay. Patient's significant other helped me remove patient's clothes. After changing patient into a gown she informed me she was suppose to have received pain medicine and that she was hurting really bad. I told her i would let her nurse know.
--- NOTE | 2021-10-13 15:07 | PC.NURSE ---
Informed Kenisha WESTON that patient was in pain and she was requesting pain medicine.
--- NOTE | 2021-10-13 15:10 | PC.NURSE ---
pt in a gown in preparation for doppler exam and for ER MD to be able to fully examine pt.
--- NOTE | 2021-10-13 15:17 | PC.NURSE ---
cv lab staff reported will be on the way down soon to do doppler, spoke with venkatesh
--- NOTE | 2021-10-13 15:20 | PC.NURSE ---
Rad and CV lab staff are at bedside at this time.
[2021-10-13 15:22] LABS: Troponin I < 0.01 ng/ml (0.00-0.034)
--- NOTE | 2021-10-13 15:36 | PC.NURSE ---
RODOLFO BREWER notified of pt elevated bp
--- NOTE | 2021-10-13 15:54 | PC.NURSE ---
pt sitting up in bed, family at Bs, call light within reach, will continue to monitor
--- NOTE | 2021-10-13 15:56 | PC.NURSE ---
Addendum entered by Arcelia Dockery RN 10/13/21 15:57: notified ER Original Note: per CV lab staff pt venous doppler was a very limited study but is negative based on the images she was able to obtain.
--- NOTE | 2021-10-13 17:05 | PC.NURSE ---
approx 1630 Pt rang call light, I entered pt room. Pt requesting to know when she would be discharged, she has called the gym supervisor and made a complaint and is not happy about this visit . Pt voiced to me that she is upset that the ER doctor will not prescribe her the medication she is requesting to help with her pain r/t arthritis. Pt reports she is talking about naproxen, states she was previous prescribed it another facility recently. Explained to pt that RODOLFO BREWER had just a few minutes prior to entering her room that he was assigning pt up for d/c and that he had discussed with her that he does not want to prescribe her an NSAID while she is on Eliquis for afib. Pt upset about this states that she does not want to leave here and still be in pain. Pt states I know I am currently on morphine but I know it will wear off and I don't want to be in pain, I shouldn't be discharged without something for pain . Explained to pt that our ER MDs recommendation is for pt to continue to taking her current dose of hydrocodone, pt reports to me that it does not help with this pain. I explained to pt that I would go out and speak with ER MD and return with more clarification on their exchange and the situation. Came to desk to speak with ER about pt requesting naproxen prescription at d/c, pt reporting she is not happy with this visit. RODOLFO BREWER states states to me that he is not going to write pt a prescription for and NSAID while on Eliquis, it is not advisable. RODOLFO BREWER states that we can educate pt that she can obtain aleve over the counter which is a lower dose of naproxen but that he does not recommend that she take this medication but he she can obtain it over the counter without a prescription. Entered back in to pt room. Explained to pt what RODOLFO BREWER has stated. He will not write prescription for pt for naproxen which is an NSAID while on Eliquis which is a blood thinner that she is on r/t afib. Explained to pt that pt may obtain aleve over the counter which is a lower dose than prescription naproxen but he does not recommend that pt take that medication while on Eliquis, however she may obtain it over the counter with out a prescription. Pt was upset about this explanation, pt states to me well he is a doctor he can afford that I can not . I states to pt I understand her concerns. pt stated to me she did not understand why another ER doctor would prescribe the medication to her and he would not referring to dr. cesar. Pt stated that she was told by the doctor who prescribed to naproxen to her that she shouldn't take naproxen and eliquis together, states she was told to stop taking eliquis while on naproxen. I explained to pt that I'm not sure of what happened during that visit at the other facility or that doctors recommendations how with pt having a hx of afib if she is prescribed a blood thinner such as Eliquis she would be at risk for a stroke. Pt did not understand that as to why she would be at risk for a stroke. Explained to pt that with afib that top to chambers of your hear quiver instead of the normal movement of the heart, with atria quivering that could cause blood to clot and pt could throw a clot to her brain causing her to have a stroke. Pt asked me so with this afib I have it all the time it does just go away? . Explained to pt you may not be in afib all of the time, if that is the case you are a risk for going into afib at any time, afib is an irregular heart rhythm that can be treated but it was up a bereavement program coordinator on your a treated for afib. Pt verbalized understanding of the explanation of afib and the risk for stroke r/t being in afib. Pt then states to me she did not care for that doctors beside manner . I apologized to pt for her feeling that way but explained to her I would like to help the situation. Asked pt if she is having any pain at this time, pt states no, not right now. pt states to me okay I guess I'm ready to go home. Asked pt i
== END 2021-10-13 17:00 | disposition home or self-care (01) ==
PROVIDERS: Emergency Provider Emergency Medicine; PCP Family Medicine
DX: R10.31 Right lower quadrant pain (principal); M25.552 Pain in left hip; M25.551 Pain in right hip; E00.0 Congenital iodine-deficiency syndrome, neurological type; I10 Essential (primary) hypertension; I48.91 Unspecified atrial fibrillation; K21.9 Gastro-esophageal reflux disease without esophagitis; E78.5 Hyperlipidemia, unspecified; E11.9 Type 2 diabetes mellitus without complications; G89.29 Other chronic pain; M19.90 Unspecified osteoarthritis, unspecified site; F32.A Depression, unspecified; Z79.01 Long term (current) use of anticoagulants; Z79.1 Long term (current) use of non-steroidal anti-inflammatories (NSAID); Z79.4 Long term (current) use of insulin; Z79.82 Long term (current) use of aspirin; Z79.899 Other long term (current) drug therapy; Z99.81 Dependence on supplemental oxygen; Z87.891 Personal history of nicotine dependence; Z89.432 Acquired absence of left foot; Z80.9 Family history of malignant neoplasm, unspecified; Z84.1 Family history of disorders of kidney and ureter; M79.651 Pain in right thigh
CPT/HCPCS: 73502; 80053; 84484; 85025; 93005; 93971; 96374; 96375; 99285; J2405

== ENCOUNTER → 2022-01-15 08:50 | Outpatient (CLI) | payer MEDICAID, SELFPAY ==
[2022-01-15 15:36] LABS: Creatinine,Urine Random 60 mg/dL (Not Estab.)
[2022-01-15 15:40] LABS: Microalbumin/Creatinine Ratio 164.8
== END ==
PROVIDERS: PCP Family Medicine; Visit Provider Family Medicine
DX: E11.9 Type 2 diabetes mellitus without complications (principal); Z79.4 Long term (current) use of insulin
CPT/HCPCS: 82043; 82570

== ENCOUNTER → 2022-01-25 15:09 | Outpatient (CLI) | payer MEDICAID, SELFPAY ==
--- NOTE | 2022-01-25 15:10 | MR_ITS ---
FINAL REPORT CLINICAL HISTORY: left hip pain abnormal xray per patient 1 year FINDINGS: Multiplanar MR imaging of the left hip was performed without contrast. There is no evidence of fracture or dislocation. There is no evidence of avascular necrosis. No bony mass is identified. No labral tear is identified. No significant joint effusion is seen. There is mild edema in the region of the proximal left hamstring muscle and surrounding proximal left hamstring tendons likely due to mild injury or inflammation. There are multiple mildly enlarged inguinal lymph nodes that are nonspecific and favored to be reactive. No soft tissue mass or cyst is identified. IMPRESSION: Mild edema in the region of the proximal left hamstring musculature and surrounding proximal left hamstring tendons likely due to mild injury or inflammation. Reviewed, Interpreted and Dictated by Luther Cruz III, MD Transcribed by Sven Goodrich Authenticated and [facility]
== END ==
PROVIDERS: PCP Orthopaedic Surgery; Visit Provider Orthopaedic Surgery
DX: M25.552 Pain in left hip (principal)
CPT/HCPCS: 73721

== ENCOUNTER → 2022-04-30 23:30 | Outpatient (CLI) | payer MEDICAID, SELFPAY ==
[2022-04-30 19:12] LABS: Hemoglobin A1C 11.3 % (4.0-6.0)
[2022-05-02 14:21] LABS: Lithium (Eskalith(R)) <0.1 mmol/L (0.5-1.2)
== END ==
PROVIDERS: PCP Family Medicine; Visit Provider Family Medicine
DX: E11.9 Type 2 diabetes mellitus without complications (principal); G62.9 Polyneuropathy, unspecified
CPT/HCPCS: 80178; 83036

== ENCOUNTER → 2022-06-05 11:00 | Outpatient (CLI) | payer MEDICAID, SELFPAY ==
[2022-06-05 14:29] LABS: Chloride 102 mmol/L (98-107); Sodium 135 mmol/L (136-145)
[2022-06-05 14:30] LABS: Potassium 4.2 mmoL/L (3.5-5.1)
[2022-06-05 14:32] LABS: Alanine Aminotransferase 40 U/L (12-78); Albumin Level 3.7 g/dl (3.5-5.0); Albumin/Globulin Ratio 1.2 (1.1-1.8); Alkaline Phosphatase 86 U/L (38-126); Anion Gap 11.2 mEq/L (5-15); Aspartate Amino Transferase 52 U/L (14-36); Bilirubin,Total 0.6 mg/dl (0.2-1.3); Blood Urea Nitrogen 12 mg/dl (7-17); Calcium 8.1 mg/dl (8.4-10.2); Carbon Dioxide 26 mmol/L (22.0-30.0); Estimated Glomerular Filt Rate 107 ml/min (>60); GFR (African American) 130 ML/MIN (>60); Glucose 334 mg/dl (74-100); Total Protein,Serum 6.7 g/dl (6.3-8.2)
[2022-06-05 15:09] LABS: Hemoglobin A1C 9.8 % (4.0-6.0)
== END ==
PROVIDERS: PCP Family Medicine; Visit Provider Family Medicine
DX: E11.9 Type 2 diabetes mellitus without complications (principal); Z79.4 Long term (current) use of insulin
CPT/HCPCS: 80053; 83036

== ENCOUNTER 2022-06-21 00:43 | Emergency (ER) | payer MEDICAID, SELFPAY ==
[2022-06-21 00:45] VITALS: BP 210/108; PULSE 95; RESP 18; TEMP 37.1; O2SAT 95; BMI 48.5
--- NOTE | 2022-06-21 00:58 | CT_ITS ---
PROCEDURE INFORMATION: Exam: CT Abdomen And Pelvis With Contrast Exam date and time: 06/21/2022 2:17 AM Age: 46 years old Clinical indication: Abdominal pain; Periumbilical; Prior surgery; Surgery type: Hernia repairs; Additional info: Abd pain TECHNIQUE: Imaging protocol: Computed tomography of the abdomen and pelvis with contrast. Radiation optimization: All CT scans at this facility use at least one of these dose optimization techniques: automated exposure control; mA and/or kV adjustment per patient size (includes targeted exams where dose is matched to clinical indication); or iterative reconstruction. Contrast material: ISOVUE; Contrast volume: 75 ml; Contrast route: IV; REPORTING DATA: Count of CT and Cardiac NM exams in prior 12 months: This patient has received 0 known CTs and 0 known cardiac nuclear medicine studies in the 12 months prior to the current study. COMPARISON: CT ABDOMEN PELVIS W CON 05/31/2020 12:10 PM FINDINGS: Liver: Normal. No mass. Gallbladder and bile ducts: Prior cholecystectomy. Pancreas: Normal. No ductal dilation. Spleen: Normal. No splenomegaly. Adrenal glands: Normal. No mass. Kidneys and ureters: Normal. No hydronephrosis. Stomach and bowel: Unremarkable. No obstruction. No mucosal thickening. Appendix: No evidence of appendicitis. Intraperitoneal space: Unremarkable. No free air. No significant fluid collection. Vasculature: Unremarkable. No abdominal aortic aneurysm. Lymph nodes: Unremarkable. No enlarged lymph nodes. Urinary bladder: Unremarkable as visualized. Reproductive: Prior hysterectomy. Bones/joints: Unremarkable. No acute fracture. Soft tissues: Unremarkable. IMPRESSION: 1. No acute process identified. 2. Prior cholecystectomy and hysterectomy.
[2022-06-21 01:26] LABS: Chloride 99 mmol/L (98-107)
[2022-06-21 01:27] LABS: Sodium 136 mmol/L (136-145)
[2022-06-21 01:29] LABS: Alanine Aminotransferase 40 U/L (12-78); Amylase 124 U/L (30-110); Aspartate Amino Transferase 44 U/L (14-36); Blood Urea Nitrogen 13 mg/dl (7-17); Creatinine Clearance Estimated 85 mL/min (50-200); Estimated Glomerular Filt Rate 77 ml/min (>60); GFR (African American) 93 ML/MIN (>60)
[2022-06-21 01:30] LABS: Albumin Level 4.2 g/dl (3.5-5.0); Albumin/Globulin Ratio 1.3 (1.1-1.8); Alkaline Phosphatase 87 U/L (38-126); Bilirubin,Total 0.8 mg/dl (0.2-1.3); Calcium 8.9 mg/dl (8.4-10.2); Carbon Dioxide 26 mmol/L (22.0-30.0); Globulin 3.3 g/dL (1.3-3.2); Glucose 299 mg/dl (74-100); Total Protein,Serum 7.5 g/dl (6.3-8.2)
[2022-06-21 01:32] LABS: Lipase 823 U/L (23-300)
[2022-06-21 01:37] LABS: Basophils # 0.1 K/mm3 (0-0.2); Basophils % 0.5 % (0.1-2.0); Eosinophils # 0.7 K/mm3 (0.0-0.4); Eosinophils % 5.5 % (0.1-12.0); Hematocrit 38.8 % (37.0-47.0); Hemoglobin 12.4 g/dL (12.2-16.2); Lymphocytes % 16.5 % (10-50); Mean Corpuscular Hemoglobin 27.3 pg (27.0-31.2); Mean Corpuscular Volume 85.2 fl (81-99); Mean Platelet Volume 8.1 fl (7.4-10.4); Monocytes # 0.5 K/mm3 (0.1-1.0); Monocytes % 4.2 % (1.7-9.3); Neutrophils # 8.8 K/mm3 (1.8-7.8); Neutrophils % 73.3 % (37.0-80.0); Platelet Count 304 K/mm3 (142-424); Red Blood Count 4.56 M/mm3 (4.20-5.40); Red Cell Distribution Width 16.2 % (11.5-17.5)
[2022-06-21 03:14] LABS: Coronavirus 19, PCR Not Detected (NotDetected); Influenza A, PCR Not Detected (NotDetected); Influenza B, PCR Not Detected (NotDetected)
--- NOTE | 2022-06-21 03:26 | HMH.EDABDPAI ---
Discharge Plan Disposition Patient Disposition: Home, Self-Care Chief Complaint: Abdominal Pain Prescriptions Prescriptions: No Action (DME) Dexcom G6 Die Baker Misc See Rx Instructions .Route Qty: 1 0RF Rx Instructions: As directed Vraylar 3 mg capsule 3 mg PO DAILY Qty: 30 10RF oxycodone 5 mg tablet 5 mg PO DAILY PRN (Reason: pain, severe) Qty: 30 0RF amlodipine-benazepril 10-40 mg capsule See Rx Instructions .ROUTE .COMPLEX Qty: 90 3RF Dose Instruction: TAKE 1 CAPSULE BY MOUTH DIALY FOR 30 DAYS FOR HYPERTENSION. Rx Instructions: TAKE 1 CAPSULE BY MOUTH DIALY FOR 30 DAYS FOR HYPERTENSION. atorvastatin 20 mg tablet See Rx Instructions .Route .COMPLEX Qty: 90 3RF Rx Instructions: TAKE 1 TABLET BY MOUTH DAILY. insulin aspart U-100 [Novolog FlexPen U-100 Insulin] 100 unit/mL (3 mL) insulin pen 60 unit SQ TID Qty: 15 10RF Rx Instructions: dose up to 60 units tid max daily 180 units Trulicity 3 mg/0.5 mL pen injector 3 mg SQ WEEKLY Qty: 2 10RF insulin lispro 100 unit/mL solution 1 sliding scale dose SQ USEASDIRECTD Qty: 30 10RF Rx Instructions: 30-50u TID per glucose range for OMNIPOD insulin pump aspirin 81 mg tablet,chewable See Rx Instructions .Route .COMPLEX Qty: 100 10RF Rx Instructions: TAKE 1 TABLET BY MOUTH DAILY. carvedilol 25 mg tablet 37.5 mg PO BID Qty: 90 5RF Rx Instructions: must administer with a meal/food isosorbide mononitrate 30 mg tablet extended release 24 hr 30 mg PO DAILY Qty: 30 5RF triamterene-hydrochlorothiazid [Maxzide] 75-50 mg tablet 1 tab PO DAILY Qty: 90 3RF (DME) Dexcom G6 Sensor Device See Rx Instructions .ROUTE .COMPLEX Qty: 3 2RF Dose Instruction: USE DIRECTED. Rx Instructions: USE DIRECTED. Levemir FlexTouch U-100 Insuln 100 unit/mL (3 mL) insulin pen 100 unit SQ HS Qty: 3 4RF nystatin 100,000 unit/gram powder 1 applic TOPICAL QID Qty: 60 10RF (DME) Dexcom G6 Transmitter Device See Rx Instructions .ROUTE .COMPLEX Qty: 1 2RF Dose Instruction: As directed Rx Instructions: As directed Referrals Follow up/Referrals: Carlos Dean MD [Primary Care Provider] - See instructions Clinical Impressions Clinical Impression: Acute pancreatitis, Diabetes mellitus Instructions Patient Instructions: DI for Acute Abdominal Pain, DI for Pancreatitis Discharge ED Provider: Real (ED)Russell Abdominal Pain HPI General Chief Complaint: Abdominal Pain Stated Complaint: severe stomach pain,no N/V Time Seen by Provider: 06/21/22 04:00 Mode of Arrival: Ambulatory Source of Information: Patient, Spouse and Medical Record Limitations: No Limitations Description of Symptoms (Recalled from ER Triage Doc. by RN): pt c/o abd pain around umbical area that started about 7pm. pt denies n/v/d pt has history of hernia repairs History of Present Illness HPI narrative: pt with abd pain since last pm w/o vomiting MD complaint: abdominal pain Onset (ago): hour(s) Consistency: intermittent Severity: moderate Related Data Previous Rx's Medication Instructions Recorded insulin lispro 100 unit/mL 1 sliding scale dose SQ 06/13/21 subcutaneous solution USEASDIRECTD #30 mL blood-glucose meter,continuous #1 ea 06/19/21 (Dexcom G6 Die Baker) aspirin 81 mg chewable tablet See Rx Instructions .Route 11/06/21 .COMPLEX Blood thinner #100 tabs carvedilol 25 mg tablet 37.5 mg PO BID #90 tabs 11/06/21 isosorbide mononitrate 30 mg 30 mg PO DAILY #30 tabs 11/06/21 tablet,extended release 24 hr triamterene 75 1 tab PO DAILY #90 tabs 11/06/21 mg-hydrochlorothiazide 50 mg tablet (Maxzide) blood-glucose sensor (Dexcom G6 #3 ea 04/23/22 Sensor device) amlodipine 10 mg-benazepril 40 mg See Rx Instructions .Route 06/05/22 capsule .COMPLEX #90 caps atorvastatin 20 mg tablet See Rx Instructions .Route 06/05/22 .COMPLEX [place]
[2022-06-21 04:00] VITALS: BP 160/76; O2SAT 100
[2022-06-21 04:30] VITALS: BP 159/75; O2SAT 100
[2022-06-21 05:00] VITALS: BP 168/76; O2SAT 100
[2022-06-21 05:09] VITALS: BP 168/76; PULSE 91; RESP 20; TEMP 37.1; O2SAT 100
== END 2022-06-21 05:22 | disposition home or self-care (01) ==
PROVIDERS: Emergency Provider Emergency Medicine; PCP Family Medicine
DX: K85.90 Acute pancreatitis without necrosis or infection, unspecified (principal)
CPT/HCPCS: 36415; 74177; 80053; 82150; 83690; 85025; 96360; 96374; 96375; 99285; C9803; Q9967; U0003; U0005

== ENCOUNTER → 2022-06-26 23:21 | Outpatient (CLI) | payer MEDICAID, SELFPAY ==
[2022-06-26 18:33] LABS: Amylase 48 U/L (30-110); Lipase 41 U/L (23-300)
== END ==
PROVIDERS: PCP Family Medicine; Visit Provider Family Medicine
DX: K85.90 Acute pancreatitis without necrosis or infection, unspecified (principal)
CPT/HCPCS: 82150; 83690

== ENCOUNTER 2022-07-02 23:09 | Emergency (ER) | payer MEDICAID, SELFPAY ==
[2022-07-02 23:10] VITALS: BP 195/101; PULSE 99; RESP 23; TEMP 37; O2SAT 100; BMI 52.1
--- NOTE | 2022-07-03 | XR_ITS ---
PROCEDURE INFORMATION: Exam: XR Chest Exam date and time: 07/03/2022 12:17 AM Age: 47 years old Clinical indication: Shortness of breath; Additional info: SOA, HX chf TECHNIQUE: Imaging protocol: Radiologic exam of the chest. Views: 2 views. COMPARISON: CR XR CHEST PORTABLE 01/13/2021 9:02 PM FINDINGS: Lungs: Bandlike densities in both lung bases compatible with discoid atelectasis. Lungs are otherwise clear. Pleural spaces: Unremarkable. No pleural effusion. No pneumothorax. Heart/Mediastinum: Unremarkable. No cardiomegaly. Bones/joints: Unremarkable. IMPRESSION: Mild bibasilar atelectasis. No other acute findings.
[2022-07-03 00:13] LABS: Alanine Aminotransferase 33 U/L (12-78); Albumin Level 4.3 g/dl (3.5-5.0); Albumin/Globulin Ratio 1.2 (1.1-1.8); Alkaline Phosphatase 89 U/L (38-126); Anion Gap 10.5 mEq/L (5-15); Aspartate Amino Transferase 33 U/L (14-36); Basophils # 0.1 K/mm3 (0-0.2); Basophils % 0.5 % (0.1-2.0); Bilirubin,Total 0.9 mg/dl (0.2-1.3); Blood Urea Nitrogen 14 mg/dl (7-17); Carbon Dioxide 31 mmol/L (22.0-30.0); Chloride 95 mmol/L (98-107); Creatinine Clearance Estimated 74 mL/min (50-200); Eosinophils # 0.5 K/mm3 (0.0-0.4); Eosinophils % 5.3 % (0.1-12.0); Estimated Glomerular Filt Rate 67 ml/min (>60); GFR (African American) 81 ML/MIN (>60); Globulin 3.7 g/dL (1.3-3.2); Glucose 311 mg/dl (74-100); Hematocrit 39.7 % (37.0-47.0); Hemoglobin 12.6 g/dL (12.2-16.2); Lymphocytes # 1.5 K/mm3 (0.7-4.5); Lymphocytes % 15.3 % (10-50); Mean Corpuscular HGB Conc 31.8 g/dL (31.8-35.4); Mean Corpuscular Hemoglobin 27.4 pg (27.0-31.2); Mean Platelet Volume 7.8 fl (7.4-10.4); Monocytes # 0.3 K/mm3 (0.1-1.0); Monocytes % 3.1 % (1.7-9.3); Neutrophils # 7.6 K/mm3 (1.8-7.8); Neutrophils % 75.7 % (37.0-80.0); Platelet Count 345 K/mm3 (142-424); Potassium 3.5 mmoL/L (3.5-5.1); Red Blood Count 4.61 M/mm3 (4.20-5.40); Red Cell Distribution Width 15.9 % (11.5-17.5); Sodium 133 mmol/L (136-145)
[2022-07-03 00:18] LABS: C-Reactive Protein 80.3 mg/L (0-4)
[2022-07-03 00:24] LABS: NT Pro Brain Natriuretic Pep. 119 pg/mL (0-125)
--- NOTE | 2022-07-03 00:27 | PC.NURSE ---
patient gone to [facility] at this time.
--- NOTE | 2022-07-03 00:28 | PC.NURSE ---
patient back in room at this time.
[2022-07-03 00:29] LABS: Troponin I 0.01 ng/ml (0.00-0.034)
[2022-07-03 00:32] LABS: Procalcitonin 0.102 ng/mL (0.0-2.0)
[2022-07-03 00:52] LABS: Erythrocyte Sedimentation Rate 86 mm/hr (0-20)
[2022-07-03 01:31] LABS: Amylase 58 U/L (30-110); Lipase 68 U/L (23-300)
[2022-07-03 01:50] LABS: Acetone, Serum (Rapid) None Detected (None Detect)
--- NOTE | 2022-07-03 01:59 | HMH.EDSOB ---
Discharge Plan Disposition Patient Disposition: Left Against Medical Advice Chief Complaint: Shortness of Breath/Dyspnea Prescriptions Prescriptions: No Action oxycodone 5 mg tablet 5 mg PO Q8H PRN (Reason: pain, severe) Qty: 60 0RF Rx Instructions: for pain associated with pancreatitis torsemide 20 mg tablet 20 mg PO DAILY PRN (Reason: edema) Qty: 30 2RF Rx Instructions: take sparingly for severe swelling carvedilol 25 mg tablet 37.5 mg PO BID Rx Instructions: must administer with a meal/food atorvastatin 20 mg tablet 20 mg PO HS Rx Instructions: TAKE 1 TABLET BY MOUTH DAILY. isosorbide mononitrate 30 mg tablet extended release 24 hr 30 mg PO DAILY potassium chloride 10 mEq tablet extended release 10 meq PO DAILY PRN (Reason: supplement) Rx Instructions: take one with every torsemide aspirin 81 mg tablet,chewable 81 mg PO DAILY Rx Instructions: TAKE 1 TABLET BY MOUTH DAILY. triamterene-hydrochlorothiazid [Maxzide] 75-50 mg tablet 1 tab PO DAILY nystatin 100,000 unit/gram powder 1 applic TOPICAL QID insulin lispro 100 unit/mL solution 1 sliding scale dose SQ USEASDIRECTD Rx Instructions: 30-50u TID per glucose range for OMNIPOD insulin pump insulin aspart U-100 [Novolog FlexPen U-100 Insulin] 100 unit/mL (3 mL) insulin pen 60 unit SQ TID Rx Instructions: dose up to 60 units tid max daily 180 units Levemir FlexTouch U-100 Insuln 100 unit/mL (3 mL) insulin pen 100 unit SQ HS amlodipine-benazepril 10-40 mg capsule 1 cap PO DAILY Rx Instructions: TAKE 1 CAPSULE BY MOUTH DIALY FOR 30 DAYS FOR HYPERTENSION. (DME) Dexcom G6 Sensor Device See Rx Instructions .ROUTE .COMPLEX Rx Instructions: USE DIRECTED. (DME) Dexcom G6 Lead Advisor Misc See Rx Instructions MISCELLANEOUS Rx Instructions: As directed (DME) Dexcom G6 Transmitter Device See Rx Instructions .ROUTE .COMPLEX Rx Instructions: As directed sodium,potassium,mag sulfates [Suprep Bowel Prep Kit] 17.5-3.13-1.6 gram recon soln See Rx Instructions PO .COMPLEX Rx Instructions: DILUTE; drink full amount early evening before AND next morning at least 2 hr before procedure; follow w 960 mL water PO Vraylar 3 mg capsule 3 mg PO DAILY Helen 3 mg/0.5 mL pen injector 3 mg SQ WEEKLY Referrals Follow up/Referrals: Carlos Dean MD [Primary Care Provider] - See instructions Clinical Impressions Clinical Impression: Edema, SOB (shortness of breath) Instructions Patient Instructions: DI for Shortness of Breath Discharge ED Provider: Real (ED)Russell Resp/SOB HPI General Chief Complaint: Shortness of Breath/Dyspnea Stated Complaint: swollen feet, SOA,blisters on legs Time Seen by Provider: 07/03/22 01:59 Mode of Arrival: Family Vehicle Source of Information: Patient and Medical Record Limitations: No Limitations Description of Symptoms (Recalled from ER Triage Doc. by RN): Pt c/o increasing SOA & BLE swelling and heaviness . States she takes torsemide daily to help with her fluid but she is concerned now d/t developing fluid filled blisters to her LLE. She has +3-4 pitting edema to BLE L>R. Denies any cough, fever, or redness. She also notes that her sugar has been 300-500 recently. History of Present Illness pt with ongoing swelling lower ext -lt>rt - feels sob - pt has been compliant with meds -recent ed visit with pancrecharleen - Complaint: shortness of breath Onset (ago): day(s) Severity: moderate Known history of: diabetes Associated symptoms: denies other symptoms and lower extremity pain Treatment prior to arrival: none Related Data Home oxygen amount: none Home Medications Medication Instructions Recorded Confirmed amlodipine 10 mg-benazepril 40 mg 1 cap PO DAILY High blood pressure 07/03/22 07/03/22 capsule aspirin 81 mg chewa
[2022-07-03 02:12] LABS: T4 (Thyroxine) 11.9 ug/dl (5.53-11.0)
[2022-07-03 02:26] LABS: Thyroid Stimulating Hormone 2.66 uIU/mL (0.465-4.68)
--- NOTE | 2022-07-03 02:45 | PC.NURSE ---
after extensive conversation with patient re: the risks and benefits of signing out against medical advice, patient elected to go ahead and leave citing i'm sure you all have more important patients than me to care for . discussion between charge nurse anna and myself with patient was witnessed by the remaining hospital er faculty. iv sl was removed and patient ambulated OOD.
[2022-07-03 02:47] VITALS: BP 209/99; PULSE 89; RESP 14; TEMP 36.7; O2SAT 99
== END 2022-07-03 06:06 | disposition left against medical advice (07) ==
PROVIDERS: Emergency Provider Emergency Medicine; PCP Family Medicine
DX: R06.02 Shortness of breath (principal); R22.41 Localized swelling, mass and lump, right lower limb; R22.42 Localized swelling, mass and lump, left lower limb; Z87.891 Personal history of nicotine dependence
CPT/HCPCS: 71046; 80053; 82009; 82150; 83690; 83735; 83880; 84145; 84436; 84443; 84484; 85025; 85651; 86140; 96374; 96375; 99285

== ENCOUNTER 2022-07-23 21:09 | Emergency (ER) | payer MEDICAID, SELFPAY ==
[2022-07-23] VITALS (7 sets, daily range): BP systolic 145–172; BP diastolic 97–103; PULSE 86–143; RESP 15–27; TEMP 37.2; O2SAT 94–96; BMI 52.1
--- NOTE | 2022-07-23 21:08 | ECG_ITS ---
APPROVED REPORT Exam: Resting ECG HR:128 bpm ECG Measurements Heart Rate 128 AXES QRSd 91 QRS 11 QT 300 T -33 QTc 376 Conclusion ATRIAL FLUTTER/TACHYCARDIA WITH RAPID VENTRICULAR RESPONSE POSSIBLE ANTERIOR MYOCARDIAL INFARCTION , PROBABLY OLD [30 ms Q WAVE IN V3/V4, OR R < 0.2 mV IN V4] ABNORMAL RHYTHM ECG UNCONFIRMED REPORT Electronically signed by : Jude Betancur MD 07/24/2022 20:19:40
--- NOTE | 2022-07-23 21:25 | XR_ITS ---
PROCEDURE INFORMATION: Exam: XR Chest Exam date and time: 07/23/2022 9:52 PM Age: 47 years old Clinical indication: Other: Tachycardia; Additional info: Chest pain/ tachycardia TECHNIQUE: Imaging protocol: Radiologic exam of the chest. Views: 1 view. COMPARISON: CR XR CHEST 2V 07/03/2022 12:17 AM FINDINGS: Lungs: Unremarkable. No consolidation. Pleural spaces: Unremarkable. No pleural effusion. No pneumothorax. Heart/Mediastinum: Unremarkable. No cardiomegaly. Bones/joints: Unremarkable. IMPRESSION: No acute findings.
--- NOTE | 2022-07-23 21:38 | PC.NURSE ---
RAD at for CXR
[2022-07-23 21:47] LABS: Basophils # 0.1 K/mm3 (0-0.2); Basophils % 0.4 % (0.1-2.0); Eosinophils # 0.5 K/mm3 (0.0-0.4); Eosinophils % 4.6 % (0.1-12.0); Hematocrit 40.3 % (37.0-47.0); Hemoglobin 13.1 g/dL (12.2-16.2); Lymphocytes # 1.8 K/mm3 (0.7-4.5); Lymphocytes % 15.3 % (10-50); Mean Corpuscular HGB Conc 32.5 g/dL (31.8-35.4); Mean Corpuscular Hemoglobin 27.7 pg (27.0-31.2); Mean Corpuscular Volume 85.3 fl (81-99); Mean Platelet Volume 8.1 fl (7.4-10.4); Monocytes # 0.6 K/mm3 (0.1-1.0); Monocytes % 4.7 % (1.7-9.3); Neutrophils # 8.7 K/mm3 (1.8-7.8); Platelet Count 396 K/mm3 (142-424); Red Blood Count 4.72 M/mm3 (4.20-5.40); Red Cell Distribution Width 15.8 % (11.5-17.5); White Blood Count 11.6 K/mm3 (4.8-10.8)
[2022-07-23 21:51] LABS: Chloride 90 mmol/L (98-107)
[2022-07-23 21:52] LABS: Potassium 4.3 mmoL/L (3.5-5.1); Sodium 134 mmol/L (136-145)
[2022-07-23 21:54] LABS: Activated Partial Thrombo Time 24.8 seconds (22.8-30.6); Alanine Aminotransferase 39 U/L (12-78); Aspartate Amino Transferase 38 U/L (14-36); Blood Urea Nitrogen 24 mg/dl (7-17); Creatinine Clearance Estimated 51 mL/min (50-200); Estimated Glomerular Filt Rate 44 ml/min (>60); GFR (African American) 53 ML/MIN (>60); INR 0.94 (0.9-1.1); Prothrombin Time 10.2 seconds (10.1-12.5)
[2022-07-23 21:55] LABS: Alkaline Phosphatase 105 U/L (38-126); Anion Gap 20.3 mEq/L (5-15); Bilirubin,Total 0.8 mg/dl (0.2-1.3); Calcium 9.6 mg/dl (8.4-10.2); Carbon Dioxide 28 mmol/L (22.0-30.0); Globulin 3.9 g/dL (1.3-3.2); Magnesium 1.9 mg/dl (1.6-2.3); Total Protein,Serum 7.9 g/dl (6.3-8.2)
[2022-07-23 22:04] LABS: Glucose 443 mg/dl (74-100); NT Pro Brain Natriuretic Pep. 123 pg/mL (0-125)
[2022-07-23 22:06] LABS: Coronavirus 19, PCR Not Detected (NotDetected); Influenza A, PCR Not Detected (NotDetected); Influenza B, PCR Not Detected (NotDetected)
[2022-07-23 22:07] LABS: Troponin I 0.02 ng/ml (0.00-0.034)
--- NOTE | 2022-07-23 22:27 | ECG_ITS ---
APPROVED REPORT Exam: Resting ECG HR:101 bpm ECG Measurements Heart Rate 101 AXES ID 160 P 52 QRSd 82 QRS 7 QT 353 T 74 QTc 411 Conclusion SINUS TACHYCARDIA Poor r wave progression ABNORMAL ECG UNCONFIRMED REPORT Electronically signed by : Jude Betancur MD 07/24/2022 20:19:33
--- NOTE | 2022-07-23 22:29 | PC.NURSE ---
Repeat EKG performed
--- NOTE | 2022-07-23 22:30 | PC.NURSE ---
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 MD ordered another EKG. This was obtained and MD states to keep Cardizem infusing at 10mg/hr for another 10 min and then begin to wean down to 5 mg/hr.
--- NOTE | 2022-07-23 22:35 | PC.NURSE ---
updating pt on POC and she is upset that she doesn't know if I will or won't stay. I kind of would like to know . I explained for several minutes the protocol for titrating a Cardizem drip and ensuring she does not revert back into afib and RVR. Pt stated I mean I'll do whatever you all want, I just kind of would like to know. I haven't seen the doctor, where is he? I reminded the patient that MD had been in to re-evaluate her not 15 min ago, but I would let him know she would like to talk to him again. Pt again stated I just would like to talk to the doctor .
--- NOTE | 2022-07-23 22:40 | PC.NURSE ---
Gave pt water, ok'ed by
--- NOTE | 2022-07-23 23:01 | PC.NURSE ---
MD at bedside updating pt on expectations and current POC.
--- NOTE | 2022-07-23 23:02 | PC.NURSE ---
gave pt another large cup of iced water
--- NOTE | 2022-07-23 23:23 | PC.NURSE ---
Gave pt oral Cardizem and updated her that she would need to be on the Cardizem gtt for 1 hr from that point. Also, we would repeat troponin lab @ 12 am. She was also given another large cup of ice water.
--- NOTE | 2022-07-23 23:27 | PC.NURSE ---
Constanza MEDRANO assisted pt to the bathroom.
--- NOTE | 2022-07-23 23:56 | PC.NURSE ---
Submitted 2nd troponin at this time. Pt denied any needs at this time.
[2022-07-24] VITALS: BP 150/92; PULSE 86; RESP 26; O2SAT 95
[2022-07-24 00:24] LABS: Troponin I 0.03 ng/ml (0.00-0.034)
[2022-07-24 00:43] VITALS: BP 155/94; PULSE 83; RESP 19; TEMP 36.8
--- NOTE | 2022-07-24 00:45 | PC.NURSE ---
at bedside reviewing d/c information
--- NOTE | 2022-07-24 00:47 | HMH.EDGENADL ---
Discharge Plan Disposition Patient Disposition: Home, Self-Care Condition: Good Prescriptions Prescriptions: New diltiazem HCl 30 mg tablet 30 mg PO BID 30 Days Qty: 60 0RF apixaban 5 mg tablet 5 mg PO BID 30 Days Qty: 60 0RF No Action acetaminophen 325 mg tablet 650 mg PO Q4HP PRN (Reason: pain, fever) atorvastatin 20 mg tablet 20 mg PO DAILY torsemide 20 mg tablet 20 mg PO DAILY spironolactone 50 mg tablet 50 mg PO BID oxycodone 5 mg tablet 5 mg PO TIDP PRN (Reason: Pain) insulin aspart U-100 100 unit/mL (3 mL) insulin pen See Rx Instructions .ROUTE .COMPLEX Rx Instructions: 90 units if FS is more than 300, 60-80 units if FS is less than 259 potassium chloride 10 mEq tablet,ER particles/crystals 10 meq PO DAILY Levemir FlexPen 100 unit/mL (3 mL) insulin pen 100 unit SQ HS amlodipine-benazepril 10-40 mg capsule 1 cap PO DAILY Vraylar 3 mg capsule 3 mg PO DAILY Trulicity 3 mg/0.5 mL pen injector 3 mg SQ WEEKLY Referrals Follow up/Referrals: Carlos Dean MD [Primary Care Provider] - See instructions Activity Restrictions/Add. Instructions Additional Instructions/Restrictions: Start taking the medications prescribed in the morning and follow up with your primary care physician. Stop your daily aspirin therapy and keep your primary care appointment for later today. Clinical Impressions Clinical Impression: Atrial fibrillation with rapid ventricular response, Diabetes mellitus Instructions Patient Instructions: DI for Atrial Fibrillation Discharge ED Provider: Fly Marquez Adult [facility] General Chief complaint: Chest Pain Stated complaint: chest pain Time Seen by Provider: 07/23/22 21:20 Mode of Arrival: Family Vehicle Source of Information: Patient Limitations: No Limitations Description of Symptoms (Recalled from ER Triage Doc. by RN): Pt c/o of midsternal chest pain that began about 30 min [employer]OR PRODUCT [employer]. She report she was here about 1 month ago and had a negative heart cath. She reports chest pressure like it's sitting on my chest . She also reports SOA. Pt report the pain began at rest. She denies any hx of afib, a flutter or arrhythmias. Related Data Home Medications Medication Instructions Recorded Confirmed acetaminophen 325 mg tablet 650 mg PO Q4HP PRN pain, fever 07/23/22 07/23/22 amlodipine 10 mg-benazepril 40 mg 1 cap PO DAILY High blood pressure 07/23/22 07/23/22 capsule atorvastatin 20 mg tablet 20 mg PO DAILY High cholesterol 07/23/22 07/23/22 cariprazine 3 mg capsule (Vraylar) 3 mg PO DAILY mood 07/23/22 07/23/22 dulaglutide 3 mg/0.5 mL 3 mg SQ WEEKLY Diabetes 07/23/22 07/23/22 subcutaneous pen injector (Trulicity) insulin aspart U-100 100 unit/mL See Rx Instructions .Route 07/23/22 07/23/22 (3 mL) subcutaneous pen .COMPLEX Diabetes insulin detemir U-100 100 unit/mL 100 unit SQ HS Diabetes 07/23/22 07/23/22 (3 mL) subcutaneous pen (Levemir FlexPen) oxycodone 5 mg tablet 5 mg PO TIDP PRN Pain 07/23/22 07/23/22 potassium chloride 10 mEq 10 meq PO DAILY Supplement 07/23/22 07/23/22 tablet,extended release(part/cryst) spironolactone 50 mg tablet 50 mg PO BID High blood pressure 07/23/22 07/23/22 torsemide 20 mg tablet 20 mg PO DAILY fluid ouverload 07/23/22 07/23/22 Previous Rx's Medication Instructions Recorded apixaban 5 mg tablet 5 mg PO BID atrial fibrillation 30 07/24/22 days #60 tabs diltiazem HCl 30 mg tablet 30 mg PO BID atrial fibrillation 07/24/22 30 days #60 tabs Allergies Allergy/AdvReac Type Severity Reaction Status Date / Time No Known Allergies Allergy Verified 06/26/22 15:03 [facility] Disclaimer: The information contained in this section may have been updated after the patient was seen, as this information can be updated by other users. Medical History (Updated 07/24/22 @ 01:01 by Fly Marquez MD) Afib CHF (congestive heart failur
== END 2022-07-24 01:13 | disposition home or self-care (01) ==
PROVIDERS: Emergency Provider Student in an Organized Health Care Education/Training Program; PCP Family Medicine
DX: I48.91 Unspecified atrial fibrillation (principal); R07.9 Chest pain, unspecified; Z87.891 Personal history of nicotine dependence
CPT/HCPCS: 71045; 80053; 83735; 83880; 84484; 85025; 85610; 85730; 96361; 96374; 96376; 99291; C9803; U0003; U0005

== ENCOUNTER → 2022-07-30 11:04 | Outpatient (CLI) | payer MEDICAID, SELFPAY ==
--- NOTE | 2022-07-30 11:04 | MM_ITS ---
PROCEDURE INFORMATION: Exam: MG Bilateral Screening 3D Mammography Exam date and time: 07/30/2022 10:56 AM Age: 47 years old Clinical indication: Screening mammogram TECHNIQUE: Imaging protocol: Bilateral Screening tomosynthesis and 2D mammography including computer-aided detection (CAD) when performed. COMPARISON: 1. MG MM DIG SCREENING MAMM BI W/CAD 07/24/2021 1:03 PM 2. MG MM DIG SCREENING MAMM BI W/CAD 07/18/2020 3:26 PM 3. MG DIG MAMMO BILAT SCREENING 07/10/2017 9:13 AM FINDINGS: MAMMOGRAPHY: Breast composition: There are scattered areas of fibroglandular density. Mass: 0.7 cm mass within the upper posterior right breast (about 23 cm from the nipple) should be further assessed with spot views in XCCL/MLO projection. Please carefully keiry any skin lesions prior to imaging because tomographic images suggest this to be very superficial possibly within the skin . Ultrasound should also be performed. Architectural distortion: No new or suspicious architectural distortion. Calcifications: No new or suspicious calcifications are present Asymmetric density: No new or suspicious asymmetric density is present Skin thickening: None. Axillary adenopathy: None. IMPRESSION: 0.7 cm mass within the upper posterior right breast (about 23 cm from the nipple) should be further assessed with spot views in XCCL/MLO projection. Please carefully keiry any skin lesions prior to imaging because tomographic images suggest this to be very superficial possibly within the skin . Ultrasound should also be performed. ASSESSMENT: BI-RADS category 0: Incomplete-need additional imaging evaluation
== END ==
LOC: RAD 11:04
PROVIDERS: PCP Family Medicine; Visit Provider Family Medicine
DX: Z12.31 Encounter for screening mammogram for malignant neoplasm of breast (principal)
CPT/HCPCS: 77063; 77067

== ENCOUNTER → 2022-08-02 13:47 | Outpatient (CLI) | payer MEDICAID, SELFPAY | PROVIDERS: PCP Family Medicine; Visit Provider Nurse Practitioner | DX: I48.0 Paroxysmal atrial fibrillation (principal) | CPT/HCPCS: 93270 ==

== ENCOUNTER → 2022-08-13 14:01 | Outpatient (CLI) | payer MEDICAID, SELFPAY ==
--- NOTE | 2022-08-13 14:01 | US_ITS ---
PROCEDURE INFORMATION: Exam: US Right Breast, Complete Exam date and time: 08/13/2022 2:21 PM Age: 47 years old Clinical indication: Abnormal findings on imaging; Right; Mass TECHNIQUE: Imaging protocol: Complete ultrasound of all four quadrants of the right breast and the retroareolar regions, including ultrasound of the axilla when performed. COMPARISON: MG MM DIG SCREENING MAMM BI W/CAD 07/30/2022 10:56 AM FINDINGS: Breast: Sonographic images of the right axilla demonstrates a superficial irregularly marginated heterogeneous hypoechoic mass measuring 1.6 x 1.1 x 1.8 cm in dimension. The finding may reflect an inclusion or sebaceous cyst. No axillary adenopathy. No other findings in the remainder of the right breast. The 0.7 cm mass in the posterior right upper breast anterior to the pectoralis muscle may correlate with the finding on sonography despite the apparent size discrepancy since the sonographic findings are suggestive of a fluid collection and the prior mammogram was performed approximately 3 weeks ago. IMPRESSION: Finding in the right axilla likely reflects a an inflamed or infected sebaceous cyst. Underlying abscess cannot be excluded given the irregular margins and heterogeneity of the internal architecture present. A right MLO mammographic view is recommended to assess whether not there has been interval enlargement of the 0.7 cm superficial mass seen on mammogram dated 07/30/2022 . It is possible that the mammographic finding correlates with the current sonographic finding despite the current apparent size discrepancy Following a right MLO view, consideration is made for ultrasound-guided core biopsy of the right sonographically visible mass ASSESSMENT: BI-RADS Category 0: Incomplete- Need Additional Imaging Evaluation and/or Prior Mammograms for Comparison
== END ==
PROVIDERS: PCP Family Medicine; Visit Provider Family Medicine
DX: R92.8 Other abnormal and inconclusive findings on diagnostic imaging of breast (principal); N63.10 Unspecified lump in the right breast, unspecified quadrant
CPT/HCPCS: 76641

== ENCOUNTER → 2022-08-21 11:01 | Outpatient (CLI) | payer MEDICAID, SELFPAY ==
[2022-08-21 11:46] LABS: Basophils % 0.3 % (0.1-2.0); Eosinophils # 0.3 K/mm3 (0.0-0.4); Lymphocytes # 1.1 K/mm3 (0.7-4.5); Lymphocytes % 13.6 % (10-50); Mean Corpuscular HGB Conc 31.5 g/dL (31.8-35.4); Mean Corpuscular Hemoglobin 26.3 pg (27.0-31.2); Mean Corpuscular Volume 83.6 fl (81-99); Mean Platelet Volume 8.1 fl (7.4-10.4); Monocytes # 0.3 K/mm3 (0.1-1.0); Monocytes % 4.1 % (1.7-9.3); Neutrophils # 6.5 K/mm3 (1.8-7.8); Platelet Count 289 K/mm3 (142-424); Red Blood Count 4.55 M/mm3 (4.20-5.40); Red Cell Distribution Width 15.5 % (11.5-17.5); White Blood Count 8.3 K/mm3 (4.8-10.8)
[2022-08-21 12:37] LABS: Chloride 95 mmol/L (98-107); Sodium 136 mmol/L (136-145)
[2022-08-21 12:38] LABS: Potassium 4.3 mmoL/L (3.5-5.1)
[2022-08-21 12:40] LABS: Blood Urea Nitrogen 18 mg/dl (7-17); Estimated Glomerular Filt Rate 77 ml/min (>60); GFR (African American) 93 ML/MIN (>60)
[2022-08-21 12:41] LABS: Anion Gap 15.3 mEq/L (5-15); Calcium 9.3 mg/dl (8.4-10.2); Carbon Dioxide 30 mmol/L (22.0-30.0); Glucose 379 mg/dl (74-100)
[2022-08-21 12:59] LABS: POC Glucose,Bedside 388 (70-110)
[2022-08-21 14:18] LABS: POC Glucose,Bedside 358 (70-110)
== END ==
PROVIDERS: PCP Family Medicine; Visit Provider Surgery
DX: L02.411 Cutaneous abscess of right axilla (principal); I89.8 Other specified noninfective disorders of lymphatic vessels and lymph nodes; N60.01 Solitary cyst of right breast; B95.7 Other staphylococcus as the cause of diseases classified elsewhere
CPT/HCPCS: 36415; 80048; 82962; 85025; 87070; 87077; 87186; 87205

== ENCOUNTER 2022-08-21 11:04 | Day surgery (SDC) | payer MEDICAID, SELFPAY ==
[2022-08-21] VITALS (13 sets, daily range): BP systolic 140–188; BP diastolic 73–95; PULSE 75–89; RESP 12–18; TEMP 36.1–36.6; O2SAT 93–99; BMI 51.7
[2022-08-21 12:29] LABS: POC Glucose,Bedside 499 (70-110)
--- NOTE | 2022-08-21 13:40 | EXP.ANES.CKL ---
[facility] Disclaimer: The information contained in this section may have been updated after the patient was seen, as this information can be updated by other users. Medical History (Updated 08/21/22 @ 12:07 by Suzi Patiño RN) Afib Cellulitis CHF (congestive heart failure) Diabetes Fibromyalgia High blood pressure High cholesterol History of gastroesophageal reflux (GERD) Mood disorder Pancreatitis Seizure disorder Tachycardia Urinary tract infection Surgical History (Updated 08/21/22 @ 12:07 by Suzi Patiño RN) History of appendectomy History of section History of cholecystectomy History of colonoscopy History of hysterectomy Family History (Updated 08/21/22 @ 12:08 by Suzi Patiño RN) Other Family history of cancer Family history of myocardial infarction Family history of stroke Social History (Updated 08/21/22 @ 12:09 by Suzi Patiño RN) Smoking Status: Former smoker second hand exposure: Yes alcohol intake: former substance use type: denies use current occupational status: unemployed and disabled Travel in the last 8 weeks: None household members: spouse housing: house current occupational exposures/hazards: No caffeine: Yes [facility] Anesthesia Checklist Patient Identification Patient Identification: Verbal (Name & ) Structural Data Admitted From: Home Planned Operative Procedure/s: i/d r axilla Additional verifications Anesthesia Reactions: No Hx Blood Transfusions: No Blood Transfusion Reaction: No Airway Assessment C-Spine Mobility Assessed: Yes TMJ Mobility Assessed: Yes Dentition: Good Dentition Neurological Assessment Level of Consciousness: Awake, Alert and Appropriate Anesthesia Plan Anesthesia Risk discussed: Yes Anesthesia Plan: Verified ASA Class: III Anesthesia Type: General
--- NOTE | 2022-08-21 13:51 | EXP.OP.NOTE ---
Date of procedure: 08/21/22 Pre-op Diagnosis:: Right axillary abscess Post-op Diagnosis:: Same Procedure performed:: Incision and drainage of complex right axillary abscess with debridement of skin and subcutaneous tissue Surgeon:: Luther Muhammad MD CERTIFIED GREEN BUILDING ENGINEER:: Efrain Patel Anesthesia: local and LMA Estimated blood loss (mL): 20 Operative findings:: Indurated necrotic tissue with abscess Operative note:: Patient was taken the operating room. She was given preoperative intravenous antibiotics. In the operating room she was placed in the supine position. General anesthesia was induced via LMA. Right axilla was prepped and draped in the standard surgical fashion. Limited incision was made at the site of fluctuance and spontaneous drainage of pus. There was additional pus and debris which exuded from the wound. Cultures were sent. The wound was probed. There was some indurated firm tissue. Debridement of necrotic appearing skin and underlying tissues was carried out using electrocautery. The firm tissue, which may be merely represent inflamed tissue versus lymph node versus other pathology, was sent for histopathologic analysis. Wound was aggressively probed to break up any loculations. There was some generalized oozing. Turner use of electrocautery was performed. There was generalized oozing at remaining and Gelfoam was placed within the wound for several minutes. Once this was removed there appeared to be good hemostasis. Wound was thoroughly irrigated. Local anesthetic was infiltrated generously in the surrounding tissues. Wound was packed with a dry 4 x 4 gauze and covered with clean dry sterile dressing. Condition: stable Disposition: PACU Complications:: None immediately apparent
--- NOTE | 2022-08-21 13:58 | EXP.ANES.I ---
[facility] Anesthesia Record Part I Anesthesia Record I Intake, IV Amount: 900 Estimated blood loss (mL): 20 Urine output (mL): 0 Blood Pressure: 160/80 SaO2: 94 Pulse Rate: 88 Respiratory Rate: 12 Temperature: 97.5 F Patient is:: Awake and Stable Stable to PACU at:: 13:55
--- NOTE | 2022-08-21 14:28 | SUR.PHASEI ---
fsbs- [id number] 1424- detailed report given to stevie liz in post op. 1426- pt left in stable conditon with stevie liz in post op. All dressings CDI, VSS
--- NOTE | 2022-08-21 14:39 | SW/DCPLANNER ---
Addendum entered by Constanza Loaiza 08/21/22 15:26: [facility] stated they can accept this patient for services. I have relayed information to patient's nurse (Raina). Addendum entered by Constanza Loaiza 08/21/22 14:53: [facility] is not able to accept this patient due to insurance. I have notified patient's nurse (Raina) and she stated that she will educate patient's so wound care can be completed at home. Original Note: Patient information/order has been faxed to [facility]. I have informed Post Op staff that due to patient's insurance I may not be able to set up home health services. If [facility] can not accept other options would be to return to [facility] or family/friends to do dressing changes at home. I have requested that Post Op staff keep patient till I hear back from home health agency.
--- NOTE | 2022-08-21 15:25 | SUR.PHASEII ---
report given to Checo Garcia RN, care passed to her. Still waiting on care management to set up C for dressing changes.
--- NOTE | 2022-08-23 07:10 | EXP.ANES.II ---
[facility] Anesthesia Record Part II Anesthesia Record Part II Discharge Time: 14:25 Destination: Surgical Day Care (OP Surgery) PACU nurse assessment reviewed?: Yes Patient Condition:: Good Anesthesia Complications:: None Swallowing reflex intact?: Yes Cyanosis?: No Blood Pressure: 167/76 Pulse Rate: 80 Temperature: 97 F Mental Status: Alert & Oriented Pain level:: 3 Nausea and/or vomitting:: None Intake, IV Amount: 0
[2022-08-23 07:11] VITALS: BP 167/76; PULSE 80; TEMP 36.1
== END 2022-08-21 15:45 | disposition home or self-care (01) ==
PROVIDERS: PCP Family Medicine; Visit Provider Surgery
PROC: (CPT 10060; principal; 2022-08-21 13:30)
DX: L02.411 Cutaneous abscess of right axilla (principal); B95.61 Methicillin susceptible Staphylococcus aureus infection as the cause of diseases classified elsewhere; Z16.11 Resistance to penicillins; Z79.899 Other long term (current) drug therapy; E11.9 Type 2 diabetes mellitus without complications
CPT/HCPCS: 10060; 82962; 87070; 87075; 87077; 87186; 87205; 96374; J2405

== ENCOUNTER → 2022-08-28 09:30 | Outpatient (CLI) | payer MEDICAID, SELFPAY ==
[2022-08-28 11:18] LABS: Basophils % 0.3 % (0.1-2.0); Eosinophils # 0.4 K/mm3 (0.0-0.4); Hematocrit 35.7 % (37.0-47.0); Hemoglobin 11.4 g/dL (12.2-16.2); Lymphocytes # 1.1 K/mm3 (0.7-4.5); Lymphocytes % 13.6 % (10-50); Mean Corpuscular Hemoglobin 27.6 pg (27.0-31.2); Mean Corpuscular Volume 86.1 fl (81-99); Mean Platelet Volume 7.1 fl (7.4-10.4); Monocytes # 0.3 K/mm3 (0.1-1.0); Monocytes % 4.3 % (1.7-9.3); Neutrophils % 76.8 % (37.0-80.0); Platelet Count 245 K/mm3 (142-424); Red Blood Count 4.14 M/mm3 (4.20-5.40); Red Cell Distribution Width 15.6 % (11.5-17.5); White Blood Count 7.8 K/mm3 (4.8-10.8)
[2022-08-28 11:32] LABS: Alanine Aminotransferase 30 U/L (12-78); Albumin Level 3.7 g/dl (3.5-5.0); Alkaline Phosphatase 108 U/L (38-126); Anion Gap 18.5 mEq/L (5-15); Aspartate Amino Transferase 28 U/L (14-36); Bilirubin,Indirect 0.7 mg/dL (0.0-0.9); Bilirubin,Total 0.7 mg/dl (0.2-1.3); Bilirubin,Unconjugated 0.8 mg/dL (0.0-1.1); Blood Urea Nitrogen 19 mg/dl (7-17); Calcium 8.9 mg/dl (8.4-10.2); Carbon Dioxide 24 mmol/L (22.0-30.0); Chloride 98 mmol/L (98-107); Chol/HDL Ratio 2.6 (1-3.5); Cholesterol 120 mg/dl (140-200); Estimated Glomerular Filt Rate 77 ml/min (>60); GFR (African American) 93 ML/MIN (>60); Glucose 389 mg/dl (74-100); HDL Cholesterol 46 mg/dl (40-60); Magnesium 1.9 mg/dl (1.6-2.3); Potassium 4.5 mmoL/L (3.5-5.1); Sodium 136 mmol/L (136-145); Triglycerides 347 mg/dl (30-150); VLDL Cholesterol 69 mg/dL (0-40)
[2022-08-28 11:42] LABS: Direct LDL Cholesterol 39.17 mg/dL (100-129)
== END ==
PROVIDERS: PCP Family Medicine; Visit Provider Nurse Practitioner
DX: I11.9 Hypertensive heart disease without heart failure (principal); E78.2 Mixed hyperlipidemia; E66.01 Morbid (severe) obesity due to excess calories; Z68.43 Body mass index [BMI] 50.0-59.9, adult
CPT/HCPCS: 36415; 80048; 80061; 80076; 83735; 85025

== ENCOUNTER → 2022-09-17 07:37 | Outpatient (CLI) | payer MEDICAID, SELFPAY | PROVIDERS: PCP Family Medicine; Visit Provider Family Medicine | DX: R92.8 Other abnormal and inconclusive findings on diagnostic imaging of breast (principal) ==

== ENCOUNTER 2022-09-30 14:51 | Inpatient (IN) | payer MEDICAID, SELFPAY ==
[2022-09-30] VITALS (9 sets, daily range): BP systolic 141–217; BP diastolic 41–99; PULSE 91–106; RESP 16–20; TEMP 37.3–39.1; O2SAT 96–100; BMI 47.0; BMI 49.7
--- NOTE | 2022-09-30 15:21 | XR_ITS ---
PROCEDURE INFORMATION: Exam: XR Right Foot Exam date and time: 09/30/2022 3:25 PM Age: 47 years old Clinical indication: Edema and swelling, leg or foot; No, it is generalized; Patient HX: PT obese and has lots of fluid in legs weeping-- unable to bend leg or knee for foot xray; Additional info: Necrotic heel- heal black necrotic tissue and swelling throughout the leg TECHNIQUE: Imaging protocol: Radiologic exam of the right foot. Views: 3 or more views. COMPARISON: CR XR FOOT WT BEARING RT 3V 05/26/2021 6:23 PM FINDINGS: Bones/joints: No evidence of acute fracture or malalignment. Lisfranc joint appears normal in these non-weightbearing radiographs. Calcaneal enthesopathy without evidence of cortical erosion, noting that bandaging material obscures fine bony detail in the posterior calcaneus. Soft tissues: Soft tissue defect noted over the calcaneus. IMPRESSION: No evidence of acute osseous abnormality in the right foot. No convincing evidence of osteomyelitis, noting MRI is more sensitive in detecting early osteomyelitis.
--- NOTE | 2022-09-30 16:05 | HMH.EDGENADL ---
Discharge Plan Disposition Patient Disposition: Admitted Discharge ED Provider: Minh Meade Adult HPI General Chief complaint: PAIN Stated complaint: pain in Rt foot, no accident Time Seen by Provider: 09/30/22 15:21 Mode of Arrival: Wheelchair Limitations: No Limitations Description of Symptoms (Recalled from ER Triage Doc. by RN): Patient reports she had some leg swelling that caused blisters on her right foot. Patients wrapped the foot x2 days ago and when they were changing the bandage tonight, noticed maggots on her wounds. Patient reports she has diabetic neuropathy from diabetes. History of Present Illness HPI narrative: right foot maggots. Pt reportedly wrappe the patient's foot on saturday which he does on occasion for swelling and blisters the the patient gets on her feet. he wrapped the patient's foot and did not note maggots. He reportedly removed the dressing and found maggots and brought her for evaluation. The patient has neuropathy and does not feel her feet MD complaint: maggots Onset (ago): day(s) (today) Location: right and lower extremity Severity: moderate Related Data Home Medications Medication Instructions Recorded Confirmed atorvastatin 20 mg tablet 20 mg PO HS Cholesterol 07/23/22 10/01/22 cariprazine 3 mg capsule (Vraylar) 3 mg PO DAILY mood 07/23/22 09/30/22 spironolactone 50 mg tablet 50 mg PO BID Fluid 07/23/22 09/30/22 insulin NPH-regular 70-30 U-100 80 unit SQ BID diabetes 08/21/22 09/30/22 insulin 100 unit/mL subcutaneous pen (Humulin 70/30 U-100 KwikPen) insulin detemir U-100 100 unit/mL 120 unit SQ HS Diabetes 08/21/22 09/30/22 (3 mL) subcutaneous pen (Levemir FlexPen) diltiazem HCl 30 mg tablet 30 mg PO BID high blood 10/01/22 10/01/22 pressure/heart rate dulaglutide 4.5 mg/0.5 mL 4.5 mg SQ WEEKLY Diabetes 10/01/22 10/01/22 subcutaneous pen injector (Trulicity) insulin aspart U-100 100 unit/mL 0 unit SQ DIRECTED PRN Diabetes 10/01/22 10/01/22 (3 mL) subcutaneous pen torsemide 20 mg tablet 40 mg PO DAILY diuretic 10/01/22 10/01/22 Previous Rx's Medication Instructions Recorded oxycodone-acetaminophen 5 mg-325 1 tab PO BID PRN pain #60 tabs 09/04/22 mg tablet apixaban 5 mg tablet 5 mg PO BID atrial fibrillation 30 09/07/22 days #60 tabs Allergies Allergy/AdvReac Type Severity Reaction Status Date / Time No Known Allergies Allergy Verified 09/04/22 08:29 [facility] Disclaimer: The information contained in this section may have been updated after the patient was seen, as this information can be updated by other users. Medical History Afib Cellulitis CHF (congestive heart failure) Diabetes Fibromyalgia High blood pressure High cholesterol History of gastroesophageal reflux (GERD) Mood disorder Pancreatitis Seizure disorder Tachycardia Urinary tract infection Surgical History History of appendectomy History of section History of cholecystectomy History of colonoscopy History of hysterectomy Family History Other Family history of cancer Family history of myocardial infarction Family history of stroke Social History Smoking Status: Never smoker second hand exposure: Yes alcohol intake: former substance use type: denies use current occupational status: unemployed and disabled Travel in the last 8 weeks: None household members: spouse housing: house current occupational exposures/hazards: No caffeine: Yes ROS Obtained: Yes Systems reviewed as appropriate & no additional complaints except as documented Musculoskeletal Musculoskeletal: Reports joint swelling and Reports other (bullae, erythema) Physical Exam General General appearance: alert and in no a
[2022-09-30 16:58] LABS: Basophils % 0.2 % (0.1-2.0); Eosinophils # 0.1 K/mm3 (0.0-0.4); Eosinophils % 0.7 % (0.1-12.0); Hematocrit 34.7 % (37.0-47.0); Hemoglobin 10.6 g/dL (12.2-16.2); Lymphocytes # 0.9 K/mm3 (0.7-4.5); Lymphocytes % 5.4 % (10-50); Mean Corpuscular HGB Conc 30.4 g/dL (31.8-35.4); Mean Corpuscular Hemoglobin 25.8 pg (27.0-31.2); Mean Corpuscular Volume 84.7 fl (81-99); Mean Platelet Volume 7.8 fl (7.4-10.4); Monocytes # 0.8 K/mm3 (0.1-1.0); Monocytes % 4.9 % (1.7-9.3); Neutrophils % 88.9 % (37.0-80.0); Platelet Count 379 K/mm3 (142-424); Red Cell Distribution Width 15.8 % (11.5-17.5); White Blood Count 15.7 K/mm3 (4.8-10.8)
[2022-09-30 17:03] LABS: Alanine Aminotransferase 31 U/L (12-78); Albumin Level 3.5 g/dl (3.5-5.0); Albumin/Globulin Ratio 0.8 (1.1-1.8); Alkaline Phosphatase 106 U/L (38-126); Anion Gap 16.2 mEq/L (5-15); Aspartate Amino Transferase 35 U/L (14-36); Bilirubin,Total 0.8 mg/dl (0.2-1.3); Blood Urea Nitrogen 14 mg/dl (7-17); Calcium 8.6 mg/dl (8.4-10.2); Carbon Dioxide 25 mmol/L (22.0-30.0); Chloride 98 mmol/L (98-107); Creatinine Clearance Estimated 67 mL/min (50-200); Estimated Glomerular Filt Rate 59 ml/min (>60); GFR (African American) 72 ML/MIN (>60); Globulin 4.2 g/dL (1.3-3.2); Glucose 359 mg/dl (74-100); Potassium 4.2 mmoL/L (3.5-5.1); Sodium 135 mmol/L (136-145); Total Protein,Serum 7.7 g/dl (6.3-8.2)
[2022-09-30 17:04] LABS: MANUAL DIFFERENTIAL MANUAL DIFFERENTIAL (MANUAL DIFF)
--- NOTE | 2022-09-30 17:14 | PC.NURSE ---
CHECKED ON PT SHE ASKED FOR WATER DOCTOR SAID TO HOLD OFF AT THIS TIME, AT BS
--- NOTE | 2022-09-30 17:15 | PC.NURSE ---
DR CROWLEY PAGED AT THIS TIME
--- NOTE | 2022-09-30 17:16 | PC.NURSE ---
DR SRINIVASAN SPEAKING WITH DR CROWLEY
[2022-09-30 17:20] LABS: Procalcitonin 0.172 ng/mL (0.0-2.0)
[2022-09-30 17:21] LABS: Hypochromasia 2+; Lymphocytes % 10 % (10-50); Monocytes % 4 % (2-9); Neutrophils % 86 % (42-76); Platelet Estimate Normal; Total Cells Counted 100
--- NOTE | 2022-09-30 17:29 | PC.NURSE ---
COVID SWAB SENT TO LAB
--- NOTE | 2022-09-30 17:33 | CT_ITS ---
PROCEDURE INFORMATION: Exam: CT Right Lower Extremity Without Contrast, Foot Exam date and time: 09/30/2022 6:36 PM Age: 47 years old Clinical indication: Pain; Heel; Right; Additional info: Eval for osteomyelitis TECHNIQUE: Imaging protocol: CT of the right lower extremity without contrast was performed. Exam focused on the foot. Radiation optimization: All CT scans at this facility use at least one of these dose optimization techniques: automated exposure control; mA and/or kV adjustment per patient size (includes targeted exams where dose is matched to clinical indication); or iterative reconstruction. REPORTING DATA: Count of CT and Cardiac NM exams in prior 12 months: This patient has received [address] and 0 known cardiac nuclear medicine studies in the 12 months prior to the current study. COMPARISON: CR XR FOOT RT MIN 3V 09/30/2022 3:25 PM FINDINGS: Bones/joints: No evidence of acute fracture malalignment. Lisfranc joint appears intact. Polyarticular degenerative osteoarthrosis in the intertarsal and tarsometatarsal joints of the midfoot. 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 Calcaneal enthesopathy with no evidence of cortical erosion. Soft tissues: Diffuse soft tissue edema throughout the foot and ankle with a large soft tissue defect overlying the plantar aspect of the posterior calcaneus where there is subcutaneous emphysema extending into the interstitium of the subcutaneous fat concerning for necrotizing soft tissue infection. Subcutaneous emphysema does not appear to breach the plantar fascial plane and does not extend beyond the hindfoot. No evidence of focal fluid collection or radiopaque foreign body. Punctate focus of hydroxyapatite deposition noted in the plantar fascia near the calcaneus. IMPRESSION: 1. Soft tissue defect overlying the plantar aspect of the posterior calcaneus with subcutaneous emphysema extending into the interstitium of the subcutaneous fat concerning for necrotizing soft tissue infection. No evidence of acute osteomyelitis, noting MRI is more sensitive in detecting early osteomyelitis. 2. Polyarticular degenerative osteoarthrosis in the intertarsal and tarsometatarsal joints of the midfoot. 3. 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 4. Calcaneal enthesopathy. 5. Hydroxyapatite deposition in the plantar fascia.
[2022-09-30 17:38] LABS: Coronavirus 19, PCR Not Detected (NotDetected); Influenza A, PCR Not Detected (NotDetected); Influenza B, PCR Not Detected (NotDetected)
--- NOTE | 2022-09-30 17:45 | PC.NURSE ---
unable to flush IV, infiltrated at this time. IV removed, aware, Called US nurse to attempt, unsuccessful at this time.
[2022-09-30 17:58] LABS: Hemoglobin A1C 11.3 % (4.0-6.0)
--- NOTE | 2022-09-30 17:58 | HMH.ITSTN ---
pt needs a CT foot-- Dr Benavides ordered. went to get the patient and she refused scan will not get on CT table and will not lay flat-- they also have not been able to get an IV on her either. Dr. Benavides spoke to nurse and advised to just hold on scan till tomorrow and they can get pain under control. Nurse did advise patient that we will need to get it at some point to evaluate for osteomyliti. Dr Benavides said to hold on CT for now
--- NOTE | 2022-09-30 18:06 | PC.NURSE ---
spoke with , pt refusing to do ct scan at this time, states she cant lay flat due to getting soa. Educated pt the importance of ct scan and continuing her care. Aware that no IV access is present at this time due to difficult stick. MD states that he will have a further discussion with pt when she arrives to floor.
[2022-09-30 18:19] LABS: Thyroid Stimulating Hormone 1.85 uIU/mL (0.465-4.68)
[2022-09-30 18:22] LABS: NT Pro Brain Natriuretic Pep. 284 pg/mL (0-125)
--- NOTE | 2022-09-30 18:36 | EXP.HP ---
History of Present Illness *Admission Date: 09/30/22 *Reason for visit:: foot infection, maggots in wound *History of present illness: Mrs. Maldonado is a 47-year-old female with history significant for insulin-dependent diabetes, morbid obesity, hypertension, hyperlipidemia, neuropathy. She presented to the ER with her due to swelling in her right leg, redness, and finding of maggots in her wound when he unwrapped her bandage today. She complains of feeling feverish and chills the past few days. Decreased appetite but no kye vomiting. Shortness of breath at baseline. No chest pain or confusion. Recently had an abscess debrided in her right axilla approximately 1 month ago. Her at bedside helps give history. States she has been having a wound on her foot that was a blister last Saturday. He wrapped it and when he was changing the bandage today noticed maggots in the dressing. He brought her to the ER for evaluation. States the wound was not black last Saturday. On evaluation, patient found to be tachycardic, febrile, have a leukocytosis. Has a malodorous necrotic wound of her right heel. Medicine consulted for further management. Received IV antibiotics and fluid bolus in the ER. On evaluation, noticeable odor prior to examining the patient. Is cooperative and able to give history. Denies significant pain with foot. States she has difficulty feeling her feet and her hands. Is unable to care for herself. Does not recall the wound last week looking as bad as it does now. Denies any significant bleeding. [facility] Disclaimer: The information contained in this section may have been updated after the patient was seen, as this information can be updated by other users. Medical History Afib Cellulitis CHF (congestive heart failure) Diabetes Fibromyalgia High blood pressure High cholesterol History of gastroesophageal reflux (GERD) Mood disorder Pancreatitis Seizure disorder Tachycardia Urinary tract infection Surgical History History of appendectomy History of section History of cholecystectomy History of colonoscopy History of hysterectomy Family History Family history of stroke Family history of cancer Family history of myocardial infarction Social History Smoking Status: Never smoker second hand exposure: Yes alcohol intake: former substance use type: denies use current occupational status: unemployed and disabled Travel in the last 8 weeks: None household members: spouse housing: house current occupational exposures/hazards: No caffeine: Yes Meds Home Medications and Allergies Home Medications Medication Instructions Recorded Confirmed Type atorvastatin 20 mg tablet 20 mg PO DAILY High cholesterol 07/23/22 09/30/22 History cariprazine 3 mg capsule (Vraylar) 3 mg PO DAILY mood 07/23/22 09/30/22 History spironolactone 50 mg tablet 50 mg PO BID High blood pressure 07/23/22 09/30/22 History insulin NPH-regular 70-30 U-100 80 unit SQ BID diabetes 08/21/22 09/30/22 History insulin 100 unit/mL subcutaneous pen (Humulin 70/30 U-100 KwikPen) insulin detemir U-100 100 unit/mL 120 unit SQ HS Diabetes 08/21/22 09/30/22 History (3 mL) subcutaneous pen (Levemir FlexPen) torsemide 40 mg tablet 40 mg PO DAILY #30 tabs 08/28/22 09/30/22 Rx insulin aspart U-100 100 unit/mL See Rx Instructions SQ 09/04/22 09/30/22 Rx (3 mL) subcutaneous pen (Novolog USEASDIRECTD #15 mL FlexPen U-100 Insulin aspart) oxycodone-acetaminophen 5 mg-325 1 tab PO BID PRN pain #60 tabs 09/04/22 09/30/22 Rx mg tablet apixaban 5 mg tablet 5 mg PO BID atrial fibrillation 30 09/07/22 09/30/22 Rx days #60 tabs diltiazem HCl 30 mg tablet 30 mg PO BID atrial fibrillation 09/07/22 09/30/22 R
--- NOTE | 2022-09-30 18:41 | PC.NURSE ---
Dr Meade speaking with Dr Sacha Mueller
--- NOTE | 2022-09-30 19:01 | PC.NURSE ---
Pt arrived to floor via stretcher @ this time
[2022-09-30 20:36] LABS: Reflex Lactic Add Lactic Reflex
[2022-09-30 21:27] LABS: Lactic Acid Follow Up (RFLX 1) 1.8 mmol/L (0.7-2.1)
[2022-09-30 21:28] LABS: POC Glucose,Bedside 449 (70-110)
[2022-10-01] VITALS (21 sets, daily range): BP systolic 117–156; BP diastolic 57–97; PULSE 78–99; RESP 14–20; TEMP 36.6–38.4; O2SAT 93–98; BMI 50.5
--- NOTE | 2022-10-01 05:18 | PC.NURSE ---
NO ACUTE CHANGES THIS SHIFT. PT HAS BEEN TREATED FOR PAIN X2 AND FEVER X1 THIS SHIFT. PHOTOS OF PT'S RIGHT FOOT WOUND ARE IN THE CHART AND FOOT IS WRAPPED IN A DRESSING. THIS RN HAS TOLD PATIENT X2 THAT SHE NEEDED TO TAKE A BATH FOR HER CONSULT THIS AM. PT STATED THAT SHE UNDERSTOOD. TECHS HAVE BEEN IN PATENTS ROOM MULTIPLE TIMES AND PT HAS PUSHED OFF TAKING A BATH. AFTER TECHS SET PT UP FOR A BATH PT STATED THAT SHE HAD WASHED UP. TOWELS AND WASHRAGS WERE UNTOUCHED. BILL BOARD POSTER MADE AWARE.
--- NOTE | 2022-10-01 05:36 | PC.NURSE ---
TYLENOL GIVEN AT 0532 FOR FEVER
[2022-10-01 05:57] LABS: Basophils % 0.2 % (0.1-2.0); Eosinophils # 0.1 K/mm3 (0.0-0.4); Eosinophils % 0.6 % (0.1-12.0); Hematocrit 32.9 % (37.0-47.0); Hemoglobin 10.4 g/dL (12.2-16.2); Lymphocytes # 0.9 K/mm3 (0.7-4.5); Mean Corpuscular HGB Conc 31.5 g/dL (31.8-35.4); Mean Corpuscular Hemoglobin 26.3 pg (27.0-31.2); Mean Corpuscular Volume 83.6 fl (81-99); Mean Platelet Volume 8.1 fl (7.4-10.4); Monocytes # 0.9 K/mm3 (0.1-1.0); Monocytes % 5.1 % (1.7-9.3); Neutrophils # 15.4 K/mm3 (1.8-7.8); Neutrophils % 89.1 % (37.0-80.0); Platelet Count 398 K/mm3 (142-424); Red Blood Count 3.94 M/mm3 (4.20-5.40); Red Cell Distribution Width 15.6 % (11.5-17.5); White Blood Count 17.3 K/mm3 (4.8-10.8)
[2022-10-01 06:00] LABS: MANUAL DIFFERENTIAL MANUAL DIFFERENTIAL (MANUAL DIFF)
[2022-10-01 06:02] LABS: POC Glucose,Bedside 409 (70-110)
[2022-10-01 06:03] LABS: Alanine Aminotransferase 28 U/L (12-78); Albumin Level 3.5 g/dl (3.5-5.0); Albumin/Globulin Ratio 0.9 (1.1-1.8); Alkaline Phosphatase 102 U/L (38-126); Anion Gap 12.7 mEq/L (5-15); Aspartate Amino Transferase 29 U/L (14-36); Blood Urea Nitrogen 16 mg/dl (7-17); Calcium 8.3 mg/dl (8.4-10.2); Carbon Dioxide 26 mmol/L (22.0-30.0); Chloride 98 mmol/L (98-107); Creatinine Clearance Estimated 59 mL/min (50-200); Estimated Glomerular Filt Rate 53 ml/min (>60); GFR (African American) 64 ML/MIN (>60); Globulin 4.1 g/dL (1.3-3.2); Magnesium 1.7 mg/dl (1.6-2.3); Potassium 3.7 mmoL/L (3.5-5.1); Sodium 133 mmol/L (136-145); Total Protein,Serum 7.6 g/dl (6.3-8.2)
[2022-10-01 06:08] LABS: C-Reactive Protein 256.6 mg/L (0-4)
[2022-10-01 06:20] LABS: Glucose 403 mg/dl (74-100)
[2022-10-01 06:29] LABS: Lymphocytes % 7 % (10-50); Monocytes % 1 % (2-9); Neutrophils % 92 % (42-76); Platelet Estimate Normal; RBC Morphology Normal; Total Cells Counted 100
[2022-10-01 07:20] LABS: Erythrocyte Sedimentation Rate 97 mm/hr (0-20)
--- NOTE | 2022-10-01 07:41 | HMH.PHAINT1 ---
Pharmacy Intervention Comments: Patient's home medications verified with patient and external pharmacy. -Sadi Foote, Pharm Student
--- NOTE | 2022-10-01 08:55 | EXP.ORTH.CON ---
History of Present Illness *Admission Date: 09/30/22 *History of present illness: Mrs. Maldonado is a 47-year-old female with history significant for insulin-dependent diabetes, morbid obesity, hypertension, hyperlipidemia, neuropathy. She presented to the ER with her due to swelling in her right leg, redness, and finding of maggots in her wound when he unwrapped her bandage today. She complains of feeling feverish and chills the past few days. Decreased appetite but no kye vomiting. Shortness of breath at baseline. No chest pain or confusion. Recently had an abscess debrided in her right axilla approximately 1 month ago. Her at bedside helps give history. States she has been having a wound on her foot that was a blister last Saturday. He wrapped it and when he was changing the bandage today noticed maggots in the dressing. He brought her to the ER for evaluation. States the wound was not black last Saturday. On evaluation, patient found to be tachycardic, febrile, have a leukocytosis. Has a malodorous necrotic wound of her right heel. Medicine consulted for further management. Received IV antibiotics and fluid bolus in the ER. On evaluation, noticeable odor prior to examining the patient. Is cooperative and able to give history. Denies significant pain with foot. States she has difficulty feeling her feet and her hands. Is unable to care for herself. Does not recall the wound last week looking as bad as it does now. Denies any significant bleeding. Podiatry consult: Diabetic with right foot Gangrene infection. states skin changes started last week. Noticed some blistering with some black discoloration Saturday and progressively worsened over the weekend. Maggots in the wound yesterday. Into the ER and was admitted for IV antibiotics and surgical debridement. 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 Discussed doing ABIs to evaluate flow. Patient was reluctant to do so she does not want to lay flat. Has compromised and said she will do it after surgery today. [facility] Disclaimer: The information contained in this section may have been updated after the patient was seen, as this information can be updated by other users. Medical History Afib Cellulitis CHF (congestive heart failure) Diabetes Fibromyalgia High blood pressure High cholesterol History of gastroesophageal reflux (GERD) Mood disorder Pancreatitis Seizure disorder Tachycardia Urinary tract infection Surgical History History of appendectomy History of section History of cholecystectomy History of colonoscopy History of hysterectomy Family History Family history of stroke Family history of cancer Family history of myocardial infarction Social History (Updated 09/30/22 @ 19:15 by Abbey Jacobsen RN) Smoking Status: Never smoker second hand exposure: Yes alcohol intake: former substance use type: denies use current occupational status: unemployed and disabled Travel in the last 8 weeks: None household members: spouse housing: house current occupational exposures/hazards: No caffeine: Yes Review of Systems Review of Systems Review of systems:: pertinent systems reviewed and negative unless documented below Constitutional Constitutional: Reports chills, Reports fatigue and Reports fever(s) Eyes Eyes: Reports system reviewed and no additional complaints, except as documented ENT Ears, Nose, Mouth, and Throat: Reports system reviewed and no additional complaints, except as documented *Cardiovascular Cardiovascular: Reports dyspnea, Reports edema and Reports leg edema *Respiratory Respiratory: Reports dyspnea *Gastrointestinal Gastrointestinal: Reports loose stools and Reports nausea *Genitourinary Genitourinary: Reports sys
[2022-10-01 08:59] LABS: POC Glucose,Bedside 241 (70-110)
--- NOTE | 2022-10-01 09:22 | EXP.CARD.CON ---
History of Present Illness History of Present Illness Consult date: 10/01/22 Requesting physician: Mahamed Benavides Chief complaint: leg complaint History of present illness: 47-year-old white female with past medical history of insulin-dependent diabetes mellitus, PAF on eliquis, CAD with medical management cath June 2022, diastolic dysfunction, morbid obesity, hypertension, hyperlipidemia and neuropathy presented to emergency department yesterday with complaints of pain, swelling and redness to right lower extremity. Patient reports yesterday she unwrapped lower extremity and found maggots in her wounds. She also complained of feeling feverish and having chills the past few days with decreased appetite. On presentation to emergency department patient was febrile with a temperature of 102.3 and blood pressure was elevated with systolic in the 200s. Labs as follow: WBC 15.7, hemoglobin 10.6, sodium 135, potassium 4.2, anion gap 16.2, creatinine 1, glucose 359, hemoglobin A1c 11.3, lactate 3.0, proBNP 284. A CT of foot was obtained and was concerning for necrotizing soft tissue infection. No osteomyelitis was noted on CT. Patient was complaining of increased soa upon presentation to hospital associated with orthopnea, patient was given Lasix IV and was diuresed 1500mls with improvement. Denies chest pain. [facility] Disclaimer: The information contained in this section may have been updated after the patient was seen, as this information can be updated by other users. Medical History Afib Cellulitis CHF (congestive heart failure) Diabetes Fibromyalgia High blood pressure High cholesterol History of gastroesophageal reflux (GERD) Mood disorder Pancreatitis Seizure disorder Tachycardia Urinary tract infection Surgical History History of appendectomy History of section History of cholecystectomy History of colonoscopy History of hysterectomy Family History Family history of stroke Family history of cancer Family history of myocardial infarction Social History (Updated 09/30/22 @ 19:15 by Abbey Jacobsen RN) Smoking Status: Never smoker second hand exposure: Yes alcohol intake: former substance use type: denies use current occupational status: unemployed and disabled Travel in the last 8 weeks: None household members: spouse housing: house current occupational exposures/hazards: No caffeine: Yes Review of Systems Review of Systems Review of systems:: pertinent systems reviewed and negative unless documented below *Cardiovascular Cardiovascular: Denies chest pain and Reports dyspnea *Respiratory Respiratory: Reports dyspnea *Musculoskeletal Musculoskeletal: Reports numbness *Neurologic Neurologic: Reports numbness Exam Data for Last 24 hours Vital signs and Labs for Last 24 Hours: Temp Pulse Resp BP Pulse Ox O2 Del Method 98.8 F 89 20 127/91 H 96 Room Air 10/01/22 08:00 10/01/22 08:00 10/01/22 08:00 10/01/22 08:00 10/01/22 08:00 10/01/22 08:00 Laboratory Results - last 24 hr 09/30/22 16:31: WBC 15.7 H, RBC 4.10 L, Hgb 10.6 L, Hct 34.7 L, MCV 84.7, MCH 25.8 L, MCHC 30.4 L, RDW 15.8, Plt Count 379, MPV 7.8, Neut % (Auto) 88.9 H, Lymph % (Auto) 5.4 L, [place]key % (Auto) 4.9, Eos % (Auto) 0.7, Baso % (Auto) 0.2, Neut # (Auto) 14.0 H, Lymph # (Auto) 0.9, [place]key # (Auto) 0.8, Eos # (Auto) 0.1, Baso # (Auto) 0.0, Total Counted 100, Neutrophils % (Manual) 86 H, Lymphocytes % (Manual) 10, Monocytes % (Manual) 4, Platelet Estimate Normal, Hypochromasia 2+, Sodium 135 L, Potassium 4.2, Chloride 98, Carbon Dioxide 25, Anion Gap 16.2 H, BUN 14, Creatinine 1.00, Estimated Creat Clear 67, Estimated GFR 59, Est GFR ( Amer) 72, Glucose 359 H, Hemoglobin A1c 11.3 H, Lactate 3.0 H, Calcium 8.6, Total Bilirubin 0.8, AST 35, ALT 31, Alkaline Phosphat
--- NOTE | 2022-10-01 09:36 | ECG_ITS ---
APPROVED REPORT Exam: Resting ECG HR:85 bpm ECG Measurements Heart Rate 85 AXES NE 158 P 57 QRSd 90 QRS 12 QT 396 T 9 QTc 438 Conclusion SINUS RHYTHM NONSPECIFIC T-WAVE ABNORMALITY BORDERLINE ECG UNCONFIRMED REPORT Electronically signed by : Jude Betancur MD 10/01/2022 13:57:53
--- NOTE | 2022-10-01 10:39 | EXP.ACUTE.PN ---
Subjective *Date: 10/01/22 *Time: 10:39 Interval history: Patient stable overnight. Continue to have intermittent fevers however. Blood pressure within normal range. On room air. Diuresed well with 1500 cc of urine output after 1 dose of Lasix. No nausea or vomiting. No chest pain. Bandage on right heel with serous drainage. Podiatry seeing her this morning on rounds Medical Exam Vital signs and Labs for Last 24 Hours: Vital Signs Temp Pulse Pulse Resp BP BP Pulse Ox 10/01/22 09:00 10/01/22 08:00 10/01/22 08:00 98.8 F 89 20 127/91 H 96 10/01/22 07:00 10/01/22 05:00 10/01/22 03:00 10/01/22 04:00 101.1 F H 96 H 16 121/57 L 93 L 10/01/22 01:00 09/30/22 23:00 09/30/22 20:00 09/30/22 21:00 09/30/22 20:00 99.5 F 106 H 16 141/99 H 96 09/30/22 19:09 100 F H 104 H 18 149/41 H 96 09/30/22 18:54 102.3 F H 100 H 20 191/55 H 09/30/22 17:30 100 H 20 177/63 H 100 09/30/22 17:00 104 H 20 210/66 H 100 09/30/22 16:52 99 H 20 204/61 H 100 09/30/22 15:53 102.3 F H 09/30/22 15:31 91 H 200/58 H 100 09/30/22 15:09 99.2 F 94 H 18 217/83 H 99 O2 Del Method 10/01/22 09:00 Room Air 10/01/22 08:00 Room Air 10/01/22 08:00 Room Air 10/01/22 07:00 Room Air 10/01/22 05:00 Room Air 10/01/22 03:00 Room Air 10/01/22 04:00 Room Air 10/01/22 01:00 Room Air 09/30/22 23:00 Room Air 09/30/22 20:00 Room Air 09/30/22 21:00 Room Air 09/30/22 20:00 Room Air 09/30/22 19:09 Room Air 09/30/22 18:54 Room Air 09/30/22 17:30 09/30/22 17:00 09/30/22 16:52 09/30/22 15:53 09/30/22 15:31 Room Air 09/30/22 15:09 Room Air Intake and Output 09/30/22 10/01/22 10/01/22 23:59 07:59 15:59 Intake Total 0 / 0 Output Total 700 / 700 800 / 800 Balance -700 / -700 -800 / -800 Intake: Intake, Oral Amount 0 / 0 Output: Output, Urine Amount 700 / 700 800 / 800 Other: Number of Unmeasured Voids 1 1 Weight 143.987 kg 146.011 kg Patient Weight 10/01/22 23:59 Weight 146.011 kg Laboratory Results - last 24 hr 09/30/22 16:31: WBC 15.7 H, RBC 4.10 L, Hgb 10.6 L, Hct 34.7 L, MCV 84.7, MCH 25.8 L, MCHC 30.4 L, RDW 15.8, Plt Count 379, MPV 7.8, Neut % (Auto) 88.9 H, Lymph % (Auto) 5.4 L, [place] % (Auto) 4.9, Eos % (Auto) 0.7, Baso % (Auto) 0.2, Neut # (Auto) 14.0 H, Lymph # (Auto) 0.9, [place] # (Auto) 0.8, Eos # (Auto) 0.1, Baso # (Auto) 0.0, Total Counted 100, Neutrophils % (Manual) 86 H, Lymphocytes % (Manual) 10, Monocytes % (Manual) 4, Platelet Estimate Normal, Hypochromasia 2+, Sodium 135 L, Potassium 4.2, Chloride 98, Carbon Dioxide 25, Anion Gap 16.2 H, BUN 14, Creatinine 1.00, Estimated Creat Clear 67, Estimated GFR 59, Est GFR ( Amer) 72, Glucose 359 H, Hemoglobin A1c 11.3 H, Lactate 3.0 H, Calcium 8.6, Total Bilirubin 0.8, AST 35, ALT 31, Alkaline Phosphatase 106, NT-Pro-B Natriuret Pep 284 H, Total Protein 7.7, Albumin 3.5, Globulin 4.2 H, Albumin/Globulin Ratio 0.8 L, Procalcitonin 0.172, TSH 1.85 09/30/22 17:28: SARS-CoV-2 (PCR) Not detected, Influenza A Untype (PCR) Not detected, Influenza Type B (PCR) Not detected 09/30/22 21:00: Lactate 1.8 09/30/22 21:19: POC Glucose 449 H* 10/01/22 05:34: POC Glucose 409 H* 10/01/22 05:40: WBC 17.3 H, RBC 3.94 L, Hgb 10.4 L, Hct 32.9 L, MCV 83.6, MCH 26.3 L, MCHC 31.5 L, RDW 15.6, Plt Count 398, MPV 8.1, Neut % (Auto) 89.1 H, Lymph % (Auto) 5.0 L, [place] % (Auto) 5.1, Eos % (Auto) 0.6, Baso % (Auto) 0.2, Neut # (Auto) 15.4 H, Lymph # (Auto) 0.9, [place] # (Auto) 0.9, Eos # (Auto) 0.1, Baso # (Auto) 0.0, Total Counted 100, Neutrophils % (Manual) 92 H, Lymphocytes % (Manual) 7 L, Monocytes % (Manual) 1 L, Platelet Estimate Normal, RBC Morphology Normal, ESR 97 H, Sodium 133 L, Potassium 3.7, Chloride 98, Carbon Dioxide 26, Anion Gap 12.7, BUN 16, Creatinine 1.10 H, Estimated Creat Clear 59, Estimated GFR 53 L, Est GFR ( Amer
[2022-10-01 11:10] LABS: POC Glucose,Bedside 267 (70-110)
--- NOTE | 2022-10-01 11:26 | PC.NURSE ---
courtesy tech note: pt is sitting on the side of the bed. family is at bs no requests voiced at this time.
--- NOTE | 2022-10-01 13:00 | US_ITS ---
FINAL REPORT CLINICAL HISTORY: DM foot ulcer RIGHT (do in PACU after I D), HTN, POST OP I & D, TDE pt sitting up in bed refused to lay flat, moved thru out exam FINDINGS: COMPLETE ANKLE/BRACHIAL INDICES BILATERAL Complete ankle brachial indices were obtained. The right MAYUR is 1.1. The left MAYUR is 1.0. IMPRESSION: ABIs are within normal limits bilaterally. Reviewed, Interpreted and Dictated by Luther Cruz III, MD Transcribed by Yissel Dhillon Authenticated and [facility]
--- NOTE | 2022-10-01 13:10 | PC.NURSE ---
1302-PT LEAVING FLOOR FOR SX AT THIS TIME
--- NOTE | 2022-10-01 13:11 | P.PN_ITS ---
[facility] Disclaimer: The information contained in this section may have been updated after the patient was seen, as this information can be updated by other users. Medical History Afib Cellulitis CHF (congestive heart failure) Diabetes Fibromyalgia High blood pressure High cholesterol History of gastroesophageal reflux (GERD) Mood disorder Pancreatitis Seizure disorder Tachycardia Urinary tract infection Surgical History History of appendectomy History of section History of cholecystectomy History of colonoscopy History of hysterectomy Family History Other Family history of cancer Family history of myocardial infarction Family history of stroke Social History Smoking Status: Never smoker second hand exposure: Yes alcohol intake: former substance use type: denies use current occupational status: unemployed and disabled Travel in the last 8 weeks: None household members: spouse housing: house current occupational exposures/hazards: No caffeine: Yes [facility] Anesthesia Checklist Patient Identification Patient Identification: Arm Band and Verbal (Name & ) Structural Data Admitted From: Home Planned Operative Procedure/s: I & D Consent for Planned Operative Procedure(s) Verified: Yes NPO Status Verified Time NPO: 00:00 Chart Verification Results Verified: CBC and BMP Additional verifications Anesthesia Reactions: No Hx Blood Transfusions: No Blood Transfusion Reaction: No Airway Assessment C-Spine Mobility Assessed: Yes TMJ Mobility Assessed: Yes Dentition: Good Dentition Neurological Assessment Level of Consciousness: Awake Hx Seizures: No Numbness or tingling in extremities: No Anesthesia Plan Anesthesia Risk discussed: Yes Anesthesia Plan: Verified ASA Class: III Anesthesia Type: General
--- NOTE | 2022-10-01 14:34 | XR_ITS ---
PROCEDURE INFORMATION: Exam: XR Right Foot Exam date and time: 10/01/2022 6:13 PM Age: 47 years old Clinical indication: Pain; Foot; Right; Additional info: Post op gas i&d-- mostly of right heel area TECHNIQUE: Imaging protocol: Radiologic exam of the right foot. Views: 3 or more views. COMPARISON: CT FOOT RT WO CON 09/30/2022 6:36 PM FINDINGS: Bones/joints: No gross osseous changes of osteomyelitis or septic joint. Mild plantar calcaneal spurring and mild spurring at the Achilles insertion unchanged. Mild-moderate midfoot chronic arthropathy. Soft tissues: Soft tissue swelling throughout the foot, greatest over the heel pad and hindfoot. Increased soft tissue deficit over the heel pad likely due to interval surgical debridement since comparison CT. Small amounts of soft tissue air in the plantar forefoot and in Kager's fat space are new from yesterday's CT 09/30/2022, most likely representing postoperative air given the clinically described interval surgery although correlate clinically for developing gangrenous infection, consider short-term CT follow-up as clinically indicated. No retained foreign bodies. IMPRESSION: 1. Increased soft tissue deficit over the heel pad is likely secondary to interval surgical debridement since recent CT. Overlying dressing limits characterization. No retained bodies. 2. No gross changes of osteomyelitis or septic joint. 3. Nonspecific soft tissue swelling in the foot and ankle. 4. New foci of air in Kager's fat space and in the plantar forefoot are most likely postoperative in nature although correlate clinically regarding any concern for developing gangrenous infection, consider short-term CT follow-up as clinically indicated.
--- NOTE | 2022-10-01 14:34 | EXP.ANES.I ---
[facility] Anesthesia Record Part I Anesthesia Record I Intake, IV Amount: 700 Estimated blood loss (mL): 10 Urine output (mL): 0 Blood Pressure: 123/63 SaO2: 93 Pulse Rate: 87 Respiratory Rate: 14 Temperature: 98.3 F Patient is:: Drowsy and Oral/Nasal airway Stable to PACU at:: 14:33
--- NOTE | 2022-10-01 14:36 | EXP.OP.NOTE ---
Date of procedure: 10/01/22 Pre-op Diagnosis:: Right foot gas gangrene Right diabetic foot infection Post-op Diagnosis:: Same Procedure performed:: Right ankle incision and drainage Right foot wide debridement of non-viable soft tissue Right heel bone biopsy Surgeon:: Aleisha Brandon DPM TOOL PROGRAMMER:: Chemo Mckay Anesthesia: LMA Estimated blood loss (mL): 20 Clinical Note:: See consult note. Risks and benefits of surgery reviewed with patient and her . High risk for BKA due to sepsis, ulcer with gas gangrene and extensive co-morbidities, uncontrolled DM, morbid obesity, history left 5th toe amp. Operative findings:: Right heel diabetic foot infection with necrotic tissue and sloughing from plantar posterior heel. Ankle has edema, erythema with abscess. Incision over lateral ankle, 1x0.1x0.5cm, serous drainage noted. No kye purulence from ankle. Heel necrotic. Separate incision made over plantar heel. No maggots, but creamy thick purulent yellow milky drainage expressed, deep wound cultures taken. Tracking from heel to medial ankle ~10cm. Necrotic tissue with malodor noted to entire heel. Post full thickness sharp excisional debridement with 15' blade, forceps thru skin, subq, deep fascia, plantar fascia muscle, down to exposed calcaneus and measured ~11 x 8 x 3cm. Heel bone had purulent drainage, bone culture and biopsy taken. Concern for deep tracking soft tissue infection and osteomyelitis. Overall and heel bone concerning for extensive gas gangrene infection. Some bleeding but less than optimal. Given her co-morbidities, concern of potential for healing and high risk for further surgery and below knee amputation. Operative note:: On this date and time the patient was deemed an appropriate surgical candidate. With informed consent time patient was transferred from the preoperative holding area to the operating theater placed on table in a normal supine position. Right lower extremities prepped and draped in normal sterile fashion. No tourniquet utilized. Patient getting José Hernandez scheduled on the floor. Right ankle incision and drainage: Attention was directed to the right lateral ankle where edema and erythema was noted. Utilizing a 15 blade, a linear incision was made over the site. There was serous drainage noted. No purulent drainage was expressed. Wound culture taken. Next hemostat used to explore the area. There was no deep tracking or tunneling noted. Right foot open bone biopsy: A stab incision was made over the medial calcaneus with a 15 blade. Blunt dissection carried down to level of bone. Ronguer was used to remove a portion of the bone which was sent to micro as culture and another piece was sent to pathology for bone biopsy. Right foot I&D, wide debridement of nonviable tissue/diabetic ulcer: 15 blade and forceps was then used to make as a separate incision over the necrotic black eschar. Incision was full-thickness down to the level of the deep fascia and calcaneus bone. Some purulent drainage was expressed from this area. Several sinus tracks from heel to ankle noted. 15 blade was used to sharply debride necrotic nonviable soft tissue full-thickness. See operative findings for measurements. It did probe to the calcaneus bone which was visible within the incision. Some tracking approximately 10 cm was noted. Gentamicin irrigation was used to flush all incisions in pulse lavage. The wounds were explored and no more purulence was noted. Atrixra was inserted into the heel wound site. Betadine soaked gauze was inserted followed by dry sterile dressing to right foot. Patient was woken from anesthesia with vitals stable and neurovascular status intact to be transferred to recovery for further monitoring before being transferred back to the floor. Plan: Maintain dressing clean dry and intact to right foot, reinforce as necessary. NWB in short fracture boot, walker. Ok to toe touch for transitions. Float right heel on pillows. Antibiot
--- NOTE | 2022-10-01 14:55 | SUR.PHASEI ---
Respiratory at bedside for MAYUR.
--- NOTE | 2022-10-01 15:11 | SUR.PHASEI ---
1510-report called to ENRICO Hawthorne at this time
[2022-10-01 15:25] LABS: POC Glucose,Bedside 246 (70-110)
[2022-10-01 16:29] LABS: POC Glucose,Bedside 250 (70-110)
--- NOTE | 2022-10-01 17:54 | PC.NURSE ---
A&OX4, HOWEVER SEEMS VERY BLANK WITH FLAT AFFECT. PT IS VERY EMOTIONAL AND TEARFUL T/O THE DAY. TOLERATED PROCEDURE WELL, R FOOT DRESSING CDI. SIG OTHER AT BEDSIDE. PT HAS HAD NO C/O PAIN PRIOR TO PROCEDURE OR SINCE ARRIVAL BACK TO FLOOR. SIG OTHER HELPS PT TO BEDSIDE COMMODE AND TO AND FROM CHAIR-BED. NO OTHER NEEDS OR C/O NOTED THUS FAR. VSS.
[2022-10-01 21:20] LABS: POC Glucose,Bedside 206 (70-110)
[2022-10-02] VITALS (7 sets, daily range): BP systolic 126–155; BP diastolic 55–86; PULSE 50–91; RESP 16–19; TEMP 36.4–36.9; O2SAT 95–100; BMI 50.5
[2022-10-02 05:46] LABS: Basophils % 0.2 % (0.1-2.0); Eosinophils # 0.2 K/mm3 (0.0-0.4); Eosinophils % 1.2 % (0.1-12.0); Hematocrit 30.9 % (37.0-47.0); Hemoglobin 9.9 g/dL (12.2-16.2); Lymphocytes # 1.4 K/mm3 (0.7-4.5); Lymphocytes % 7.6 % (10-50); Mean Corpuscular HGB Conc 32.1 g/dL (31.8-35.4); Mean Corpuscular Hemoglobin 26.4 pg (27.0-31.2); Mean Corpuscular Volume 82.3 fl (81-99); Mean Platelet Volume 8.2 fl (7.4-10.4); Monocytes % 5.4 % (1.7-9.3); Neutrophils # 15.7 K/mm3 (1.8-7.8); Neutrophils % 85.5 % (37.0-80.0); Platelet Count 519 K/mm3 (142-424); Red Blood Count 3.75 M/mm3 (4.20-5.40); Red Cell Distribution Width 15.5 % (11.5-17.5); White Blood Count 18.3 K/mm3 (4.8-10.8)
[2022-10-02 05:52] LABS: Chloride 96 mmol/L (98-107)
[2022-10-02 05:53] LABS: MANUAL DIFFERENTIAL MANUAL DIFFERENTIAL (MANUAL DIFF); Potassium 3.5 mmoL/L (3.5-5.1); Sodium 132 mmol/L (136-145)
[2022-10-02 05:55] LABS: Alanine Aminotransferase 24 U/L (12-78); Aspartate Amino Transferase 31 U/L (14-36); Blood Urea Nitrogen 17 mg/dl (7-17); Creatinine Clearance Estimated 50 mL/min (50-200); Estimated Glomerular Filt Rate 44 ml/min (>60); GFR (African American) 53 ML/MIN (>60)
[2022-10-02 05:56] LABS: Albumin Level 3.3 g/dl (3.5-5.0); Albumin/Globulin Ratio 0.8 (1.1-1.8); Alkaline Phosphatase 105 U/L (38-126); Anion Gap 11.5 mEq/L (5-15); Bilirubin,Total 0.9 mg/dl (0.2-1.3); Calcium 7.9 mg/dl (8.4-10.2); Carbon Dioxide 28 mmol/L (22.0-30.0); Globulin 4.3 g/dL (1.3-3.2); Glucose 212 mg/dl (74-100); Magnesium 1.8 mg/dl (1.6-2.3); Total Protein,Serum 7.6 g/dl (6.3-8.2)
[2022-10-02 06:02] LABS: C-Reactive Protein 271.1 mg/L (0-4)
[2022-10-02 06:11] LABS: POC Glucose,Bedside 224 (70-110)
[2022-10-02 06:19] LABS: Erythrocyte Sedimentation Rate > 140 mm/hr (0-20)
--- NOTE | 2022-10-02 06:28 | PC.NURSE ---
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 Pt tearful and anxious periodically throughout the shift. Medicated per MAR for continued complaints of pain. Minimal sleep, pt up to chair most of the night, encouraged to elevate RLE without success. Pt did agree to return to bed around 0530, but continues to sit edge of bed. Serosanguineous drainage noted to bandage.
--- NOTE | 2022-10-02 07:16 | P.PNANES_ITS ---
[facility] Anesthesia Record Part II Anesthesia Record Part II Discharge Time: 15:23 Destination: Medical Surgical Department PACU nurse assessment reviewed?: Yes Patient Condition:: Good Anesthesia Complications:: None Swallowing reflex intact?: Yes Cyanosis?: No Blood Pressure: 155/74 Pulse Rate: 78 Temperature: 98.3 F Mental Status: Alert & Oriented Pain level:: 2 Nausea and/or vomitting:: None Intake, IV Amount: 0
[2022-10-02 07:18] LABS: Eosinophils % 1 % (0-3); Hypochromasia 1+; Lymphocytes % 8 % (10-50); Monocytes % 7 % (2-9); Neutrophils % 84 % (42-76); Total Cells Counted 100
[2022-10-02 07:19] LABS: Platelet Estimate Slight Increase
--- NOTE | 2022-10-02 08:14 | EXP.ORTH.PN ---
Subjective *Date: 10/02/22 *Time: 10:35 Interval history: Patient is resting comfortably sitting up in bed. She reports less pain to the right foot. Denies nausea/vomiting, fever/chills. Concern overall is still continuing/worsening infection not improved with I&D and aggressive wound debridement yesterday. Ortho Exam (Inpt) Vital signs and Labs for Last 24 Hours: Temp Pulse Resp BP Pulse Ox O2 Del Method O2 Flow Rate 98.2 F 63 18 150/69 H 95 Room Air 3 10/02/22 07:22 10/02/22 07:22 10/02/22 07:22 10/02/22 07:22 10/02/22 07:22 10/02/22 07:22 10/01/22 15:23 Laboratory Results - last 24 hr 10/01/22 08:37: POC Glucose 241 H 10/01/22 10:55: POC Glucose 267 H 10/01/22 15:17: POC Glucose 246 H 10/01/22 16:13: POC Glucose 250 H 10/01/22 20:07: POC Glucose 206 H 10/02/22 05:27: WBC 18.3 H, RBC 3.75 L, Hgb 9.9 L, Hct 30.9 L, MCV 82.3, MCH 26.4 L, MCHC 32.1, RDW 15.5, Plt Count 519 H D, MPV 8.2, Neut % (Auto) 85.5 H, Lymph % (Auto) 7.6 L, [place] % (Auto) 5.4, Eos % (Auto) 1.2, Baso % (Auto) 0.2, Neut # (Auto) 15.7 H, Lymph # (Auto) 1.4, [place] # (Auto) 1.0, Eos # (Auto) 0.2, Baso # (Auto) 0.0, Total Counted 100, Neutrophils % (Manual) 84 H, Lymphocytes % (Manual) 8 L, Monocytes % (Manual) 7, Eosinophils % (Manual) 1, Platelet Estimate Slight increase, RBC Morphology Not Reportable, Hypochromasia 1+, ESR > 140 H, Sodium 132 L, Potassium 3.5, Chloride 96 L, Carbon Dioxide 28, Anion Gap 11.5, BUN 17, Creatinine 1.30 H, Estimated Creat Clear 50, Estimated GFR 44 L, Est GFR ( Amer) 53 L, Glucose 212 H D, Calcium 7.9 L, Magnesium 1.8, Total Bilirubin 0.9, AST 31, ALT 24, Alkaline Phosphatase 105, C-Reactive Protein 271.1 H, Total Protein 7.6, Albumin 3.3 L, Globulin 4.3 H, Albumin/Globulin Ratio 0.8 L 10/02/22 05:46: POC Glucose 224 H Temp Pulse Resp BP Pulse Ox O2 Del Method 98.8 F 89 20 127/91 H 96 Room Air 10/01/22 08:00 10/01/22 08:00 10/01/22 08:00 10/01/22 08:00 10/01/22 08:00 10/01/22 08:00 Laboratory Results - last 24 hr 09/30/22 16:31: WBC 15.7 H, RBC 4.10 L, Hgb 10.6 L, Hct 34.7 L, MCV 84.7, MCH 25.8 L, MCHC 30.4 L, RDW 15.8, Plt Count 379, MPV 7.8, Neut % (Auto) 88.9 H, Lymph % (Auto) 5.4 L, [place] % (Auto) 4.9, Eos % (Auto) 0.7, Baso % (Auto) 0.2, Neut # (Auto) 14.0 H, Lymph # (Auto) 0.9, [place] # (Auto) 0.8, Eos # (Auto) 0.1, Baso # (Auto) 0.0, Total Counted 100, Neutrophils % (Manual) 86 H, Lymphocytes % (Manual) 10, Monocytes % (Manual) 4, Platelet Estimate Normal, Hypochromasia 2+, Sodium 135 L, Potassium 4.2, Chloride 98, Carbon Dioxide 25, Anion Gap 16.2 H, BUN 14, Creatinine 1.00, Estimated Creat Clear 67, Estimated GFR 59, Est GFR ( Amer) 72, Glucose 359 H, Hemoglobin A1c 11.3 H, Lactate 3.0 H, Calcium 8.6, Total Bilirubin 0.8, AST 35, ALT 31, Alkaline Phosphatase 106, NT-Pro-B Natriuret Pep 284 H, Total Protein 7.7, Albumin 3.5, Globulin 4.2 H, Albumin/Globulin Ratio 0.8 L, Procalcitonin 0.172, TSH 1.85 07/09/23 17:28: SARS-CoV-2 (PCR) Not detected, Influenza A Untype (PCR) Not detected, Influenza Type B (PCR) Not detected 09/30/22 21:00: Lactate 1.8 09/30/22 21:19: POC Glucose 449 H* 10/01/22 05:34: POC Glucose 409 H* 10/01/22 05:40: WBC 17.3 H, RBC 3.94 L, Hgb 10.4 L, Hct 32.9 L, MCV 83.6, MCH 26.3 L, MCHC 31.5 L, RDW 15.6, Plt Count 398, MPV 8.1, Neut % (Auto) 89.1 H, Lymph % (Auto) 5.0 L, [place] % (Auto) 5.1, Eos % (Auto) 0.6, Baso % (Auto) 0.2, Neut # (Auto) 15.4 H, Lymph # (Auto) 0.9, [place] # (Auto) 0.9, Eos # (Auto) 0.1, Baso # (Auto) 0.0, Total Counted 100, Neutrophils % (Manual) 92 H, Lymphocytes % (Manual) 7 L, Monocytes % (Manual) 1 L, Platelet Estimate Normal, RBC Morphology Normal, ESR 97 H, Sodium 133 L, Potassium 3.7, Chloride 98, Carbon Dioxide 26, Anion Gap 12.7, BUN 16, Creatinine 1.10 H, Estimated Creat Clear 59, Estimated GFR 53 L, Est GFR ( Amer) 64, Glucose 403 H*, Calcium 8.3 L, Magnesium 1.7, Total Bilirubin 1.0, AST 29, ALT 28, Alkaline Phosphatase 102, C-Reactive Protein 256.6
--- NOTE | 2022-10-02 08:29 | SW/DCPLANNER ---
Addendum entered by [facility] 10/09/22 09:44: Patient has been approved for admission to [facility] today. I have updated MD. Addendum entered by [facility] 10/09/22 08:35: Per Brandi sun/ [facility] precert is still pending at this time. Addendum entered by [facility] 10/08/22 08:19: Per Brandi sun/ [facility] precert is still pending at this time. Addendum entered by [facility] 10/05/22 13:08: Brandi sun/ [facility] ([phone]) stated that she is able to accept this patient pending precert. Addendum entered by [facility] 10/05/22 11:07: Patient is also agreeable with placement at [facility] in [place]. [facility] does have beds available and patient information has been faxed. Addendum entered by [facility] 10/05/22 10:19: I spoke with this patient and this AM regarding discharge plans. PT/OT recommended SNF level of care. Patient is agreeable to placement: [facility] has been discuss and patient is going to speak with family but is agreeable for information to be faxed. I will fax information to Ranjana sun/ [facility] this AM and continue to follow up with patient, family and MD. Discharge date is unknown at this time. If [facility] can NOT accept patient we will further discuss Medicaid pending placement at local LTC facility. Original Note: I spoke with this patient and her this AM regarding plans once medically stable for discharge. Patient is unsure about BKA vs home w/ IV antibiotics at this time. Patient is currently established w/ [facility]. Patient is NOT interested in placement at time of discharge. I informed patient I would speak with her later today/tomorrow regarding discharge plans due to patient being overwhelmed at this time. Discharge date is unknown at this time.
--- NOTE | 2022-10-02 09:06 | EXP.PN ---
Subjective *Date: 10/02/22 *Time: 09:06 Interval history: Leukocytosis is slightly worse today with 18.3K WBCs increased from 17.3K. ESR is >140 and CRP 271. Cr is 1.3, increased from 1.1. Glucose has ranged mainly between 200 and 250. The patient had I&D and a bone biopsy of the R heel yesterday. Her pain is in control. She is open to having an amputation if it is necessary. Exam Data for Last 24 hours Vital signs and Labs for Last 24 Hours: Temp Pulse Resp BP Pulse Ox O2 Del Method O2 Flow Rate 98.2 F 63 18 150/69 H 95 Room Air 3 10/02/22 07:22 10/02/22 07:22 10/02/22 07:22 10/02/22 07:22 10/02/22 07:22 10/02/22 07:22 10/01/22 15:23 Laboratory Results - last 24 hr 10/01/22 10:55: POC Glucose 267 H 10/01/22 15:17: POC Glucose 246 H 10/01/22 16:13: POC Glucose 250 H 10/01/22 20:07: POC Glucose 206 H 10/02/22 05:27: WBC 18.3 H, RBC 3.75 L, Hgb 9.9 L, Hct 30.9 L, MCV 82.3, MCH 26.4 L, MCHC 32.1, RDW 15.5, Plt Count 519 H D, MPV 8.2, Neut % (Auto) 85.5 H, Lymph % (Auto) 7.6 L, [place] % (Auto) 5.4, Eos % (Auto) 1.2, Baso % (Auto) 0.2, Neut # (Auto) 15.7 H, Lymph # (Auto) 1.4, [place] # (Auto) 1.0, Eos # (Auto) 0.2, Baso # (Auto) 0.0, Total Counted 100, Neutrophils % (Manual) 84 H, Lymphocytes % (Manual) 8 L, Monocytes % (Manual) 7, Eosinophils % (Manual) 1, Platelet Estimate Slight increase, RBC Morphology Not Reportable, Hypochromasia 1+, ESR > 140 H, Sodium 132 L, Potassium 3.5, Chloride 96 L, Carbon Dioxide 28, Anion Gap 11.5, BUN 17, Creatinine 1.30 H, Estimated Creat Clear 50, Estimated GFR 44 L, Est GFR ( Amer) 53 L, Glucose 212 H D, Calcium 7.9 L, Magnesium 1.8, Total Bilirubin 0.9, AST 31, ALT 24, Alkaline Phosphatase 105, C-Reactive Protein 271.1 H, Total Protein 7.6, Albumin 3.3 L, Globulin 4.3 H, Albumin/Globulin Ratio 0.8 L 10/02/22 05:46: POC Glucose 224 H I & O for Last 24 hours: Intake & Output 09/29/22 09/30/22 10/01/22 10/02/22 23:59 23:59 23:59 23:59 Intake Total 1290 / 1290 100 / 100 Output Total 700 / 700 800 / 800 500 / 500 Balance -700 / -700 490 / 490 -400 / -400 Weight 143.987 kg 146.011 kg Constitutional Constitutional: no acute distress *Routine HEENT Exam Head: Present normocephalic Eye: Present EOMI and PERRL ENT: Present mucous membranes moist *Routine Neck Exam Neck: Present supple; Absent lymphadenopathy *Routine Respiratory Exam Respiratory: Present CTA bilaterally *Routine Cardiovascular Exam Cardiovascular: Present RRR *Routine Abdominal Exam Abdominal: Present soft and normoactive bowel sounds; Absent tenderness *Routine Extremities Exam Comments: R leg with JONATHAN wrap *Routine Skin Exam Skin: Present warm; Absent rash *Routine Neurological Exam Neurological: Present alert and oriented X3 Assessment and Plan *Assessment and plan (1) Sepsis: Status: Acute Qualifiers: Sepsis type: sepsis due to unspecified organism Sepsis acute organ dysfunction status: without acute organ dysfunction Qualified Code(s): A41.9 - Sepsis, unspecified organism Category: Medical Code(s): A41.9 - Sepsis, unspecified organism (2) Diabetic ulcer of foot with necrosis of muscle: Status: Acute Qualifiers: Diabetic foot ulcer location: heel Diabetes mellitus type: type 2 Laterality: right Qualified Code(s): E11.621 - Type 2 diabetes mellitus with foot ulcer; L97.413 - Non-pressure 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
[2022-10-02 10:46] LABS: POC Glucose,Bedside 236 (70-110)
--- NOTE | 2022-10-02 12:00 | PC.NURSE ---
Courtesy Round Patient awake with visitor at bedside. Patient voiced no other needs at this time. Call light within reach. Patient refused ice water at this time.
--- NOTE | 2022-10-02 13:04 | EXP.ORTH.CON ---
History of Present Illness *Admission Date: 09/30/22 *Reason for visit:: Osteomyelitis right calcaneus open diabetic wound *History of present illness: Mrs. Maldonado is a 47-year-old female with history significant for insulin-dependent diabetes, morbid obesity, hypertension, hyperlipidemia, neuropathy. She presented to the ER with her due to swelling in her right leg, redness, and finding of maggots in her wound when he unwrapped her bandage today. She complains of feeling feverish and chills the past few days. Decreased appetite but no kye vomiting. Shortness of breath at baseline. No chest pain or confusion. Recently had an abscess debrided in her right axilla approximately 1 month ago. Her at bedside helps give history. States she has been having a wound on her foot that was a blister last Saturday. He wrapped it and when he was changing the bandage today noticed maggots in the dressing. He brought her to the ER for evaluation. States the wound was not black last Saturday. On evaluation, patient found to be tachycardic, febrile, have a leukocytosis. Has a malodorous necrotic wound of her right heel. Medicine consulted for further management. Received IV antibiotics and fluid bolus in the ER. On evaluation, noticeable odor prior to examining the patient. Is cooperative and able to give history. Denies significant pain with foot. States she has difficulty feeling her feet and her hands. Is unable to care for herself. Does not recall the wound last week looking as bad as it does now. Denies any significant bleeding. Podiatry consult: Diabetic with right foot Gangrene infection. states skin changes started last week. Noticed some blistering with some black discoloration Saturday and progressively worsened over the weekend. Maggots in the wound yesterday. Into the ER and was admitted for IV antibiotics and surgical debridement. 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 Discussed doing ABIs to evaluate flow. Patient was reluctant to do so she does not want to lay flat. Has compromised and said she will do it after surgery today. [facility] Disclaimer: The information contained in this section may have been updated after the patient was seen, as this information can be updated by other users. Medical History Afib Cellulitis CHF (congestive heart failure) Diabetes Fibromyalgia High blood pressure High cholesterol History of gastroesophageal reflux (GERD) Mood disorder Pancreatitis Seizure disorder Tachycardia Urinary tract infection Surgical History History of appendectomy History of section History of cholecystectomy History of colonoscopy History of hysterectomy Family History Other Family history of cancer Family history of myocardial infarction Family history of stroke Social History Smoking Status: Never smoker second hand exposure: Yes alcohol intake: former substance use type: denies use current occupational status: unemployed and disabled Travel in the last 8 weeks: None household members: spouse housing: house current occupational exposures/hazards: No caffeine: Yes Review of Systems *Musculoskeletal Musculoskeletal: Reports numbness *Neurologic Neurologic: Reports numbness Meds Home Medications and Allergies Home Medications Medication Instructions Recorded Confirmed Type atorvastatin 20 mg tablet 20 mg PO HS Cholesterol 07/23/22 10/01/22 History cariprazine 3 mg capsule (Vraylar) 3 mg PO DAILY mood 07/23/22 09/30/22 History spironolactone 50 mg tablet 50 mg PO BID Fluid 07/23/22 09/30/22 History insulin NPH-regular 70-30 U-100 80 unit SQ BID diabetes 08/21/22 09/30/22 History insulin 100 unit/m
[2022-10-02 17:29] LABS: POC Glucose,Bedside 202 (70-110)
[2022-10-02 20:37] LABS: POC Glucose,Bedside 220 (70-110)
[2022-10-03] VITALS: BP 130/78; PULSE 86; RESP 16; TEMP 37; O2SAT 96
[2022-10-03 04:00] VITALS: BP 123/51; PULSE 74; RESP 16; TEMP 36.6; O2SAT 96; BMI 50.5
[2022-10-03 05:37] LABS: POC Glucose,Bedside 198 (70-110)
[2022-10-03 06:00] LABS: Basophils % 0.2 % (0.1-2.0); Eosinophils # 0.3 K/mm3 (0.0-0.4); Eosinophils % 1.8 % (0.1-12.0); Hematocrit 29.5 % (37.0-47.0); Hemoglobin 9.1 g/dL (12.2-16.2); Lymphocytes # 1.9 K/mm3 (0.7-4.5); Lymphocytes % 11.2 % (10-50); Mean Corpuscular HGB Conc 30.9 g/dL (31.8-35.4); Mean Corpuscular Hemoglobin 25.8 pg (27.0-31.2); Mean Corpuscular Volume 83.7 fl (81-99); Monocytes # 0.7 K/mm3 (0.1-1.0); Neutrophils # 14.1 K/mm3 (1.8-7.8); Neutrophils % 82.8 % (37.0-80.0); Platelet Count 551 K/mm3 (142-424); Red Blood Count 3.52 M/mm3 (4.20-5.40); Red Cell Distribution Width 15.8 % (11.5-17.5)
[2022-10-03 06:01] LABS: MANUAL DIFFERENTIAL MANUAL DIFFERENTIAL (MANUAL DIFF)
[2022-10-03 06:03] LABS: Chloride 93 mmol/L (98-107)
[2022-10-03 06:04] LABS: Potassium 3.2 mmoL/L (3.5-5.1); Sodium 132 mmol/L (136-145)
[2022-10-03 06:06] LABS: Alanine Aminotransferase 31 U/L (12-78); Alkaline Phosphatase 101 U/L (38-126); Aspartate Amino Transferase 34 U/L (14-36); Bilirubin,Total 0.6 mg/dl (0.2-1.3); Blood Urea Nitrogen 22 mg/dl (7-17); Creatinine Clearance Estimated 38 mL/min (50-200); Estimated Glomerular Filt Rate 32 ml/min (>60); GFR (African American) 39 ML/MIN (>60)
[2022-10-03 06:07] LABS: Anion Gap 15.2 mEq/L (5-15); Calcium 7.9 mg/dl (8.4-10.2); Carbon Dioxide 27 mmol/L (22.0-30.0); Glucose 182 mg/dl (74-100); Total Protein,Serum 7.4 g/dl (6.3-8.2)
[2022-10-03 06:12] LABS: C-Reactive Protein 250.3 mg/L (0-4)
[2022-10-03 07:08] LABS: Erythrocyte Sedimentation Rate > 140 mm/hr (0-20)
[2022-10-03 07:11] LABS: Eosinophils % 3 % (0-3); Hypochromasia 1+; Lymphocytes % 7 % (10-50); Monocytes % 4 % (2-9); Neutrophils % 86 % (42-76); Platelet Estimate Moderate Increase; Total Cells Counted 100
[2022-10-03 07:41] VITALS: BP 138/74; PULSE 80; RESP 19; TEMP 36.4; O2SAT 93
--- NOTE | 2022-10-03 07:47 | PC.NURSE ---
patient has been refusing all care since date of admission. care has been offered multiple times by all staff. Nurse is aware
--- NOTE | 2022-10-03 07:49 | PC.NURSE ---
Patient sitting up in chair, feet flat on the floor. Patient states, I do not want to elevate my foot, it is bad on my knees. I might just want to get back in the bed.
--- NOTE | 2022-10-03 08:24 | EXP.PHA.PN ---
Subjective *Date: 10/03/22 *Time: 08:24 Medical Exam Vital signs and Labs for Last 24 Hours: Vital Signs Temp Pulse Resp BP Pulse Ox O2 Del Method 10/03/22 07:46 Room Air 10/03/22 07:41 97.5 F L 80 19 138/74 93 L Room Air 10/03/22 07:00 Room Air 10/03/22 05:00 Room Air 10/03/22 03:00 Room Air 10/03/22 04:00 98 F 74 16 123/51 L 96 10/03/22 01:00 Room Air 10/03/22 00:00 98.6 F 86 16 130/78 96 10/02/22 23:00 Room Air 10/02/22 21:00 Room Air 10/02/22 20:00 Room Air 10/02/22 20:00 97.6 F 91 H 16 139/86 96 Room Air 10/02/22 18:15 Room Air 10/02/22 17:00 Room Air 10/02/22 15:29 98.0 F 81 19 137/67 99 Room Air 10/02/22 15:00 Room Air 10/02/22 13:00 Room Air 10/02/22 11:00 Room Air 10/02/22 11:31 98.3 F 84 18 151/70 H 100 Room Air Intake and Output 10/02/22 10/03/22 10/03/22 23:59 07:59 15:59 Intake Total 1720 / 1720 Output Total 0 / 1000 Balance 0 / 80 1720 / 1720 Intake: Intake, Oral Amount 1320 / 1320 Intake, Total IV Amount 400 / 400 Linezolid 600 mg In 300 ml @ 300 / 300 300 mls/hr IV Q12 CORDELIA Rx#: [id number] Pipercillin/Tazo 3.375 gm In 0. 100 / 100 9 % Sodium Chloride 50 ml @ 100 mls/hr IV 0300,0900,1500,2100 CORDELIA Rx#:[id number] Output: Output, Urine Amount 0 / 1000 Other: Number of Unmeasured Voids 1 Weight 146 kg Patient Weight 10/03/22 23:59 Weight 146 kg Laboratory Results - last 24 hr 10/02/22 10:38: POC Glucose 236 H 10/02/22 17:06: POC Glucose 202 H 10/02/22 20:30: POC Glucose 220 H 10/03/22 05:30: WBC 17.0 H, RBC 3.52 L, Hgb 9.1 L, Hct 29.5 L, MCV 83.7, MCH 25.8 L, MCHC 30.9 L, RDW 15.8, Plt Count 551 H, MPV 8.0, Neut % (Auto) 82.8 H, Lymph % (Auto) 11.2, [place] % (Auto) 4.0, Eos % (Auto) 1.8, Baso % (Auto) 0.2, Neut # (Auto) 14.1 H, Lymph # (Auto) 1.9, Angelina # (Auto) 0.7, Eos # (Auto) 0.3, Baso # (Auto) 0.0, Total Counted 100, Neutrophils % (Manual) 86 H, Lymphocytes % (Manual) 7 L, Monocytes % (Manual) 4, Eosinophils % (Manual) 3, Platelet Estimate Moderate increase, Hypochromasia 1+, ESR > 140 H, Sodium 132 L, Potassium 3.2 L, Chloride 93 L, Carbon Dioxide 27, Anion Gap 15.2 H, BUN 22 H D, Creatinine 1.70 H D, Estimated Creat Clear 38, Estimated GFR 32 L, Est GFR ( Amer) 39 L D, Glucose 182 H, POC Glucose 198 H, Calcium 7.9 L, Total Bilirubin 0.6, AST 34, ALT 31 D, Alkaline Phosphatase 101, C-Reactive Protein 250.3 H, Total Protein 7.4, Albumin 3.3 L I & O for Labs for Last 24 Hours: Intake & Output 09/30/22 10/01/22 10/02/22 10/03/22 23:59 23:59 23:59 23:59 Intake Total 1290 / 1290 1080 / 1080 1720 / 1720 Output Total 700 / 700 800 / 800 1000 / 1000 Balance -700 / -700 490 / 490 80 / 80 1720 / 1720 Weight 143.987 kg 146.011 kg 146 kg 146 kg Microbiology Reports for the Last 24 Hours: Microbiology 10/01/22 13:45 Foot,Right Gram Stain - Final 10/01/22 13:45 Foot,Right Wound Culture - Preliminary Gram Negative Rods 10/01/22 13:40 Ankle,Right Gram Stain - Final 09/30/22 18:25 Blood Blood Culture - Preliminary NO GROWTH AFTER 48 HOURS 09/30/22 16:11 Blood Blood Culture - Preliminary NO GROWTH AFTER 48 HOURS The patient's infection will respond to the chosen ABx?: Yes (RIGHT FOOT/ANKLE WOUND CX GNR/PENDING, WBC STILL ELEVATED, AFEBRILE.) Is the patient receiving the right drug, dose, and route?: Yes Could a more targeted ABx be ordered?: No
--- NOTE | 2022-10-03 08:25 | PC.NURSE ---
patient spouse assisted her to get back in bed.
--- NOTE | 2022-10-03 09:01 | EXP.PN ---
Subjective *Date: 10/03/22 *Time: 11:43 Interval history: CBC is with 17k WBCs, down from 18k. CMP with K 3.2, Cr 1.7, increased from 1.3 CRP is 250, decreased from 270. No acute events overnight. She states she feels better overall compared to yesterday Exam Data for Last 24 hours Vital signs and Labs for Last 24 Hours: Temp Pulse Resp BP Pulse Ox O2 Del Method O2 Flow Rate 97.5 F L 80 19 138/74 93 L Room Air 3 10/03/22 07:41 10/03/22 07:41 10/03/22 07:41 10/03/22 07:41 10/03/22 07:41 10/03/22 07:46 10/01/22 15:23 Laboratory Results - last 24 hr 10/02/22 10:38: POC Glucose 236 H 10/02/22 17:06: POC Glucose 202 H 10/02/22 20:30: POC Glucose 220 H 10/03/22 05:30: WBC 17.0 H, RBC 3.52 L, Hgb 9.1 L, Hct 29.5 L, MCV 83.7, MCH 25.8 L, MCHC 30.9 L, RDW 15.8, Plt Count 551 H, MPV 8.0, Neut % (Auto) 82.8 H, Lymph % (Auto) 11.2, [place] % (Auto) 4.0, Eos % (Auto) 1.8, Baso % (Auto) 0.2, Neut # (Auto) 14.1 H, Lymph # (Auto) 1.9, [place] # (Auto) 0.7, Eos # (Auto) 0.3, Baso # (Auto) 0.0, Total Counted 100, Neutrophils % (Manual) 86 H, Lymphocytes % (Manual) 7 L, Monocytes % (Manual) 4, Eosinophils % (Manual) 3, Platelet Estimate Moderate increase, Hypochromasia 1+, ESR > 140 H, Sodium 132 L, Potassium 3.2 L, Chloride 93 L, Carbon Dioxide 27, Anion Gap 15.2 H, BUN 22 H D, Creatinine 1.70 H D, Estimated Creat Clear 38, Estimated GFR 32 L, Est GFR ( Amer) 39 L D, Glucose 182 H, POC Glucose 198 H, Calcium 7.9 L, Total Bilirubin 0.6, AST 34, ALT 31 D, Alkaline Phosphatase 101, C-Reactive Protein 250.3 H, Total Protein 7.4, Albumin 3.3 L I & O for Last 24 hours: Intake & Output 09/30/22 10/01/22 10/02/22 10/03/22 23:59 23:59 23:59 23:59 Intake Total 1290 / 1290 1080 / 1080 1720 / 1720 Output Total 700 / 700 800 / 800 1000 / 1000 Balance -700 / -700 490 / 490 80 / 80 1720 / 1720 Weight 143.987 kg 146.011 kg 146 kg 146 kg Microbiology Reports for the Last 24 Hours: Microbiology 10/01/22 13:52 Foot,Right Bone Culture - Preliminary NO GROWTH AFTER 24 HOURS 10/01/22 13:45 Foot,Right Gram Stain - Final 10/01/22 13:45 Foot,Right Wound Culture - Preliminary Gram Negative Rods 10/01/22 13:40 Ankle,Right Gram Stain - Final 09/30/22 18:25 Blood Blood Culture - Preliminary NO GROWTH AFTER 48 HOURS 09/30/22 16:11 Blood Blood Culture - Preliminary NO GROWTH AFTER 48 HOURS Constitutional Constitutional: no acute distress *Routine HEENT Exam Head: Present normocephalic Eye: Present EOMI and PERRL ENT: Present mucous membranes moist *Routine Neck Exam Neck: Present supple; Absent lymphadenopathy *Routine Respiratory Exam Respiratory: Present CTA bilaterally *Routine Cardiovascular Exam Cardiovascular: Present RRR *Routine Abdominal Exam Abdominal: Present soft and normoactive bowel sounds; Absent tenderness *Routine Extremities Exam Extremities: Present edema (bilateral lower extremities); Absent cyanosis or clubbing Comments: RLE with opal wrap c/d/i. *Routine Skin Exam Skin: Present warm; Absent rash *Routine Neurological Exam Neurological: Present alert and oriented X3 Assessment and Plan *Assessment and plan (1) Sepsis: Status: Acute Qualifiers: Sepsis acute organ dysfunction status: without acute organ dysfunction Sepsis type: sepsis due to unspecified organism Qualified Code(s): A41.9 - Sepsis, unspecified organism Category: Medical Code(s): A41.9 - Sepsis, unspecified organism (2) Diabetic ulcer of foot with necrosis of muscle: Status: Acute Qualifiers: Diabetes mellitus type: type 2 Diabetic foot ulcer location: heel Laterality: right Qualified Code(s): E11.621 - Type 2 diabetes mellitus with foot ulcer; L97.413 - Non-pressure chronic ulcer of right heel and midfoot with necrosis of muscle Category: Med
--- NOTE | 2022-10-03 10:20 | HMH.OTEV ---
OT Inpatient Evaluation Rehab OT IP Evaluation Start: 10/01/22 17:39 Freq: ONCE Status: Active Protocol: Document 10/03/22 10:09 LGCHARLESTON (Rec: 10/03/22 10:19 [facility] [id number]) Rehab OT IP Assessment Subjective History Pt oriented x 4 on arrival. Pt's present and supportive. Pt admitted on 09/30/22 due to an infection in her right foot. Pt required the following operation on 01/14 Right ankle incision and drainage Right foot wide debridement of non-viable soft tissue Right heel bone biopsy. Pt reports she has RW, BSC, and shower chair at home currently. She reports she has 1 small step to enter the home and has assistance from family to perform all ADLs. She is dependent upon family for completion of all IADLs. She will very likely be unable to maintain NWB of RLE without assistance and would benefit from a w/c and possibly hospital bed if she does return home. She also admantly refuses placement to a rehab facility at this time. Pt has a past medical history of: Afib Cellulitis CHF (congestive heart failure) Diabetes Fibromyalgia High blood pressure High cholesterol History of gastroesophageal reflux (GERD) Mood disorder Pancreatitis Seizure disorder Tachycardia Urinary tract infection Subjective I am just really overwhelmed right now. Objective Patient Orientation Person,Place,Birthday,Month Upper Extremity Gross ROM WFL Transfer Training Sit/Stand/Step Transfer,Sit/
--- NOTE | 2022-10-03 10:24 | HMH.PTEV ---
Physical Therapy Evaluation Rehab PT IP Evaluation Start: 10/01/22 17:39 Freq: ONCE Status: Active Protocol: Document 10/03/22 09:20 PHORGABY (Rec: 10/03/22 10:23 PHORNE [id number]) Subjective/History History History 47 yowf adm to [facility] with gangrene of R foot with sepsis . She has hx of uncontrolled DM, HTN, HLD, CHF, and morbid obesity. She has been VERY reluctant to allow therapy services to assist her in any way so far during this admission. She had R heel debridement performed by podiatry and has ortho consult for possible BKA. She reports she lives with significant other, 1 step to enter the home, and she generally is able to ambulate without AD. Subjective Subjective She reports significant pain in the R LE this date, but did not rate. She also reports she is unable to lay flat at all. She does not maintain NWB on her R LE as instructed. Rehab PT IP Eval Objective Appearance Patient Behavior Appropriate,Guarded,Suspicious Patient Orientation Person,Place,Time Difficulty following instructions none Speech Pattern Clear Ambulation Patient Able to Ambulate No Balance Ability to Arise Able, uses arms to help Sitting Balance Steady, safe Standing Balance Steady, wide stance Dynamic Sitting Balance Ability Good Dynamic Standing Balance Ability Fair Transfers Bed Transfer Ability Contact Guard/Hand Hold Chair Transfer Ability Minimal x 1 (25% assist) Sit to Stand Bed Transfer Ability Minimal x 1 (25% assist) Sit to Stand Chair Transfer Ability Minimal x 1 (25% assist) Rehab PT IP prob,goals,plan Problems Date of Evaluation: 10/03/22 PT IP Problems Bed Mobility,Transfers,Gait Rehab Potential Rehab Potential Fair Plan PT Intervention Plan Bed Mobility,Transfers,Gait, Therapeutic Exercise PT Plan Frequency Daily Duration LOS Discharge Goals Bed Transfer Ability Supervision/Stand by Sit to Stand Chair Transfer Ability Contact Guard/Hand Hold Ambulation Assistive Device Rolling Walker Ambulation Distance (feet) 5 Discharge Plan PT Di
[2022-10-03 11:06] VITALS: BP 148/58; PULSE 77; RESP 18; TEMP 36.6; O2SAT 98
[2022-10-03 11:21] LABS: POC Glucose,Bedside 150 (70-110)
--- NOTE | 2022-10-03 14:24 | EXP.ORTH.PN ---
Subjective *Date: 10/03/22 *Time: 14:24 Interval history: Patient feels okay. She had time to think about all the options she had in regards to how to proceed with the infection in her right lower extremity. Ortho Exam (Inpt) Vital signs and Labs for Last 24 Hours: Temp Pulse Resp BP Pulse Ox O2 Del Method O2 Flow Rate 97.9 F 77 18 148/58 H 98 Room Air 3 10/03/22 11:06 10/03/22 11:06 10/03/22 11:06 10/03/22 11:06 10/03/22 11:06 10/03/22 13:00 10/01/22 15:23 Laboratory Results - last 24 hr 10/02/22 17:06: POC Glucose 202 H 10/02/22 20:30: POC Glucose 220 H 10/03/22 05:30: WBC 17.0 H, RBC 3.52 L, Hgb 9.1 L, Hct 29.5 L, MCV 83.7, MCH 25.8 L, MCHC 30.9 L, RDW 15.8, Plt Count 551 H, MPV 8.0, Neut % (Auto) 82.8 H, Lymph % (Auto) 11.2, [place] % (Auto) 4.0, Eos % (Auto) 1.8, Baso % (Auto) 0.2, Neut # (Auto) 14.1 H, Lymph # (Auto) 1.9, [place] # (Auto) 0.7, Eos # (Auto) 0.3, Baso # (Auto) 0.0, Total Counted 100, Neutrophils % (Manual) 86 H, Lymphocytes % (Manual) 7 L, Monocytes % (Manual) 4, Eosinophils % (Manual) 3, Platelet Estimate Moderate increase, Hypochromasia 1+, ESR > 140 H, Sodium 132 L, Potassium 3.2 L, Chloride 93 L, Carbon Dioxide 27, Anion Gap 15.2 H, BUN 22 H D, Creatinine 1.70 H D, Estimated Creat Clear 38, Estimated GFR 32 L, Est GFR ( Amer) 39 L D, Glucose 182 H, POC Glucose 198 H, Calcium 7.9 L, Total Bilirubin 0.6, AST 34, ALT 31 D, Alkaline Phosphatase 101, C-Reactive Protein 250.3 H, Total Protein 7.4, Albumin 3.3 L 10/03/22 11:03: POC Glucose 150 H I & O for Labs for Last 24 Hours: Intake & Output 09/30/22 10/01/22 10/02/22 10/03/22 23:59 23:59 23:59 23:59 Intake Total 1290 / 1290 1080 / 1080 1960 / 1960 Output Total 700 / 700 800 / 800 1000 / 1000 200 / 200 Balance -700 / -700 490 / 490 80 / 80 1760 / 1760 Weight 317 lb 7 oz 321 lb 14.4 oz 321 lb 13.998 oz 321 lb 13.998 oz Microbiology Reports for the Last 24 Hours: Microbiology 10/01/22 13:40 Ankle,Right Gram Stain - Final 10/01/22 13:40 Ankle,Right Wound Culture - Preliminary NO GROWTH AFTER 24 HOURS 10/01/22 13:52 Foot,Right Bone Culture - Preliminary NO GROWTH AFTER 24 HOURS 10/01/22 13:45 Foot,Right Gram Stain - Final 10/01/22 13:45 Foot,Right Wound Culture - Preliminary Gram Negative Rods 09/30/22 18:25 Blood Blood Culture - Preliminary NO GROWTH AFTER 48 HOURS 09/30/22 16:11 Blood Blood Culture - Preliminary NO GROWTH AFTER 48 HOURS Comments:: Right foot: Dressing in place no active drainage. Assessment and Plan *Assessment and plan (1) Gas gangrene: Status: Acute Category: Medical Code(s): A48.0 - Gas gangrene (2) Diabetic ulcer of foot with necrosis of muscle: Status: Acute Qualifiers: Diabetic foot ulcer location: heel Diabetes mellitus type: type 2 Laterality: right Qualified Code(s): E11.621 - Type 2 diabetes mellitus with foot ulcer; L97.413 - Non-pressure chronic ulcer of right heel and midfoot with necrosis of muscle Category: Medical Code(s): E11.621 - Type 2 diabetes mellitus with foot ulcer; L97.503 - Non-pressure chronic ulcer of other part of unspecified foot with necrosis of muscle (3) Sepsis: Status: Acute Qualifiers: Sepsis type: sepsis due to unspecified organism Sepsis acute organ dysfunction status: without acute organ dysfunction Qualified Code(s): A41.9 - Sepsis, unspecified organism Category: Medical Code(s): A41.9 - Sepsis, unspecified organism Plan I had a long discussion with the patient yesterday and again today regarding treatment options. Her best option given the severity of the infection and the nature of the wound is a below-knee amputation. This would allow her to clear the source of infection. She was very hesitant and reluc
[2022-10-03 14:48] LABS: Albumin/Globulin Ratio 0.8 (1.1-1.8); Globulin 4.1 g/dL (1.3-3.2)
[2022-10-03 14:49] LABS: Albumin Level 3.3 g/dl (3.5-5.0)
[2022-10-03 15:40] LABS: POC Glucose,Bedside 111 (70-110)
[2022-10-03 15:46] VITALS: BP 155/67; PULSE 75; RESP 19; TEMP 36.6; O2SAT 100
[2022-10-03 20:00] VITALS: BP 138/84; PULSE 79; RESP 18; TEMP 36.8; O2SAT 94
[2022-10-03 21:52] LABS: POC Glucose,Bedside 126 (70-110)
[2022-10-04] VITALS (15 sets, daily range): BP systolic 130–186; BP diastolic 48–97; PULSE 73–98; RESP 16–22; TEMP 36.3–43; O2SAT 92–100; BMI 50.5
--- NOTE | 2022-10-04 03:56 | PC.NURSE ---
NO ACUTE CHANGES THIS SHIFT. PT HAS RESTED INTERMITTENTLY. VSS. PT HAS STATED THAT SHE IS NERVOUS FOR HER SURGERY TODAY. PT WAS ALSO IRRITATED WITH STAFF AT THE BEGINNING OF SHIFT FOR TELLING PT THAT SHE HAD TO HAVE A BATH BEFORE SURGERY. HOUSE MADE AWARE. PT HAS BEEN MORE PLEASANT THE REST OF THE SHIFT. DRESSING ON RIGHT FOOT REMAINS IN PLACE. TREATED PER MAY FOR PAIN.
--- NOTE | 2022-10-04 05:03 | PC.NURSE ---
AT THE BEGINNING OF THE SHIFT THIS RN ASKED PT IF SHE WAS READY TO SIGN HER SURGICAL CONSENT FOR HER BKA. PT STATED THAT SHE WAS NERVOUS FOR THE PROCEDURE AND WAS AGREEABLE TO THE PROCEDURE BUT HAD QUESTIONS AND DID NOT FEEL COMFORTABLE SIGNING THE CONSENT FOR SURGERY. SEO MANAGER AWARE. WILL PASS ON TO DAY RN.
[2022-10-04 05:42] LABS: POC Glucose,Bedside 139 (70-110)
--- NOTE | 2022-10-04 06:14 | PC.NURSE ---
PT CALLED OUT FOR PAIN MEDICATION. THIS RN PULLED AVAILABLE NORCO 7.5/325 FOR PT'S PAIN. AFTER ASSESSING PT'S PAIN, SCANNING MEDICATION AND POPPING OPEN THE PACKAGE TO GIVE TO PT, PT REFUSED PO PAIN MEDICATION AND STATED, I WILL WAIT FOR THE IV PAIN MEDICATION BECAUSE I'M NAUSEOUS . THIS RN WASTED THE NORCO 7.5/325 WITH ENRICO ROQUE. THIS RN ALSO NOTIFIED THE HOSPITALIST FOR NAUSEA MEDICATION FOR PT.
[2022-10-04 07:06] LABS: Anion Gap 11.4 mEq/L (5-15); Carbon Dioxide 28 mmol/L (22.0-30.0); Chloride 96 mmol/L (98-107); Potassium 3.4 mmoL/L (3.5-5.1); Sodium 132 mmol/L (136-145)
[2022-10-04 07:07] LABS: Alanine Aminotransferase 21 U/L (12-78); Albumin Level 3.4 g/dl (3.5-5.0); Albumin/Globulin Ratio 0.8 (1.1-1.8); Alkaline Phosphatase 106 U/L (38-126); Aspartate Amino Transferase 27 U/L (14-36); Bilirubin,Total 0.6 mg/dl (0.2-1.3); Blood Urea Nitrogen 24 mg/dl (7-17); Calcium 8.5 mg/dl (8.4-10.2); Creatinine Clearance Estimated 36 mL/min (50-200); Estimated Glomerular Filt Rate 30 ml/min (>60); GFR (African American) 36 ML/MIN (>60); Globulin 4.1 g/dL (1.3-3.2); Glucose 135 mg/dl (74-100); Total Protein,Serum 7.5 g/dl (6.3-8.2)
[2022-10-04 07:16] LABS: Hematocrit 30.4 % (37.0-47.0); Hemoglobin 9.4 g/dL (12.2-16.2); Mean Corpuscular HGB Conc 30.9 g/dL (31.8-35.4); Mean Corpuscular Hemoglobin 25.3 pg (27.0-31.2); Mean Corpuscular Volume 81.8 fl (81-99); Mean Platelet Volume 7.7 fl (7.4-10.4); Platelet Count 626 K/mm3 (142-424); Red Blood Count 3.74 M/mm3 (4.20-5.40); Red Cell Distribution Width 15.8 % (11.5-17.5); White Blood Count 15.2 K/mm3 (4.8-10.8)
[2022-10-04 07:17] LABS: Basophils % 0.2 % (0.1-2.0); Eosinophils # 0.4 K/mm3 (0.0-0.4); Eosinophils % 2.5 % (0.1-12.0); Lymphocytes # 1.8 K/mm3 (0.7-4.5); Lymphocytes % 11.8 % (10-50); Monocytes # 0.5 K/mm3 (0.1-1.0); Monocytes % 3.5 % (1.7-9.3); Neutrophils # 12.5 K/mm3 (1.8-7.8)
[2022-10-04 07:20] LABS: MANUAL DIFFERENTIAL MANUAL DIFFERENTIAL (MANUAL DIFF)
[2022-10-04 07:26] LABS: C-Reactive Protein 141.4 mg/L (0-4)
[2022-10-04 08:29] LABS: POC Glucose,Bedside 157 (70-110)
[2022-10-04 09:15] LABS: Eosinophils % 1 % (0-3); Hypochromasia 2+; Lymphocytes % 10 % (10-50); Monocytes % 3 % (2-9); Neutrophils % 86 % (42-76); Platelet Estimate Moderate Increase; Total Cells Counted 100
--- NOTE | 2022-10-04 09:24 | PC.NURSE ---
COURTESY TECH NOTE; ROUNDED ON PT 0805, PT UP TO CHAIR AT THIS TIME, DENIED NEED FOR ASSISTANCE WITH RESTROOM AND NEED TO REPOSITION IN CHAIR. CALL LIGHT WITHIN REACH, NO FURTHER REQUESTS AT THIS TIME MARCELA DOMÍNGUEZ
--- NOTE | 2022-10-04 09:39 | EXP.PN ---
Subjective *Date: 10/04/22 *Time: 14:47 Interval history: CBC with 15K wbcs, decreased from 17K Cr is 1.8, increased from 1.7. CRP is 141, decreased from 250 bone culture is growing GNR No acute events overnight. she is anxious about having her surgery Exam Data for Last 24 hours Vital signs and Labs for Last 24 Hours: Temp Pulse Resp BP Pulse Ox O2 Del Method O2 Flow Rate 97.9 F 74 18 130/63 99 Room Air 3 10/04/22 07:20 10/04/22 07:20 10/04/22 07:20 10/04/22 07:20 10/04/22 07:20 10/04/22 07:20 10/01/22 15:23 Laboratory Results - last 24 hr 10/03/22 05:30: Albumin 3.3 L, Globulin 4.1 H, Albumin/Globulin Ratio 0.8 L 10/03/22 11:03: POC Glucose 150 H 10/03/22 15:31: POC Glucose 111 H 10/03/22 21:30: POC Glucose 126 H 10/04/22 05:23: POC Glucose 139 H 10/04/22 05:41: WBC 15.2 H, RBC 3.74 L, Hgb 9.4 L, Hct 30.4 L, MCV 81.8, MCH 25.3 L, MCHC 30.9 L, RDW 15.8, Plt Count 626 H, MPV 7.7, Neut % (Auto) 82.0 H, Lymph % (Auto) 11.8, [place] % (Auto) 3.5, Eos % (Auto) 2.5, Baso % (Auto) 0.2, Neut # (Auto) 12.5 H, Lymph # (Auto) 1.8, [place] # (Auto) 0.5, Eos # (Auto) 0.4, Baso # (Auto) 0.0, Total Counted 100, Neutrophils % (Manual) 86 H, Lymphocytes % (Manual) 10, Monocytes % (Manual) 3, Eosinophils % (Manual) 1, Platelet Estimate Moderate increase, Hypochromasia 2+, Sodium 132 L, Potassium 3.4 L, Chloride 96 L, Carbon Dioxide 28, Anion Gap 11.4, BUN 24 H, Creatinine 1.80 H, Estimated Creat Clear 36, Estimated GFR 30 L, Est GFR ( Amer) 36 L, Glucose 135 H, Calcium 8.5, Total Bilirubin 0.6, AST 27, ALT 21 D, Alkaline Phosphatase 106, C-Reactive Protein 141.4 H, Total Protein 7.5, Albumin 3.4 L, Globulin 4.1 H, Albumin/Globulin Ratio 0.8 L 10/04/22 08:09: POC Glucose 157 H I & O for Last 24 hours: Intake & Output 10/01/22 10/02/22 10/03/22 10/04/22 23:59 23:59 23:59 23:59 Intake Total 1290 / 1290 1080 / 1080 2600 / 2600 0 / 0 Output Total 800 / 800 1000 / 1000 300 / 300 0 / 0 Balance 490 / 490 80 / 80 2300 / 2300 0 / 0 Weight 146.011 kg 146 kg 146 kg 146 kg Microbiology Reports for the Last 24 Hours: Microbiology 10/01/22 13:40 Ankle,Right Gram Stain - Final 10/01/22 13:40 Ankle,Right Wound Culture - Preliminary NO GROWTH AFTER 48 HOURS 10/01/22 13:52 Foot,Right Bone Culture - Preliminary Gram Negative Rods 10/01/22 13:45 Foot,Right Gram Stain - Final 10/01/22 13:45 Foot,Right Wound Culture - Final Proteus vulgaris Constitutional Constitutional: no acute distress *Routine HEENT Exam Head: Present normocephalic Eye: Present EOMI and PERRL ENT: Present mucous membranes moist *Routine Neck Exam Neck: Present supple; Absent lymphadenopathy *Routine Respiratory Exam Respiratory: Present CTA bilaterally *Routine Cardiovascular Exam Cardiovascular: Present RRR *Routine Abdominal Exam Abdominal: Present soft and normoactive bowel sounds; Absent tenderness *Routine Extremities Exam Extremities: Present edema (bilateral lower extremities); Absent cyanosis or clubbing Comments: RLE with opal wrap c/d/i. *Routine Skin Exam Skin: Present warm; Absent rash *Routine Neurological Exam Neurological: Present alert and oriented X3 Assessment and Plan *Assessment and plan (1) Sepsis: Status: Acute Qualifiers: Sepsis acute organ dysfunction status: without acute organ dysfunction Sepsis type: sepsis due to unspecified organism Qualified Code(s): A41.9 - Sepsis, unspecified organism Category: Medical Code(s): A41.9 - Sepsis, unspecified organism (2) Diabetic ulcer of foot with necrosis of muscle: Status: Acute Qualifiers: Diabetes mellitus type: type 2 Diabetic foot ulcer location: heel Laterality: right Qualified Code(s): E11.621 - Type 2 diabetes mellitus with foot ulcer; L97.413 - Non-pressure chronic ulcer of right heel and midfoot with necrosis of
--- NOTE | 2022-10-04 11:50 | PC.NURSE ---
NOTIFIED DR CASTANEDA ABOUT BS 174. STATED PT RECEIVED LONG ACTING INSULIN THIS MORNING VIA MAY AND NOW HAS 8 UNITS OF INSULIN ALONG WITH SLIDING SCALE INSULIN DUE. BASED ON BS PT WOULD RECEIVE 13 UNITS TOTAL. PT IS CURRENTLY NPO FOR SURGERY. HE STATED TO HOLD PRE MEAL INSULIN THAT IS SCHEDULED AND GIVE SLIDING SCALE INSULIN. VERBALIZED UNDERSTANDING.
[2022-10-04 11:53] LABS: POC Glucose,Bedside 174 (70-110)
--- NOTE | 2022-10-04 16:00 | PC.NURSE ---
pt transported to pre op via stretcher.
--- NOTE | 2022-10-04 16:52 | PC.NURSE ---
A&OX4. PT HAS TOLERATED RA WELL THROUGHOUT SHIFT. RESPIRATIONS REGULAR AND UNLABORED. HEART RATE REGULAR. LUNG SOUNDS CLEAR THROUGHOUT. NO COUGH NOTED. BOWEL SOUNDS HEARD IN ALL 4 QUADRANTS. SOFT AND NONTENDER. NO BM THUS FAR. VOIDS PER TOILET/BSC. HAND INFORMATION SECURITY DIRECTOR EQUAL. +2 PULSES NOTED THROUGHOUT. +2 PULSES NOTED THROUGHOUT. +2 PITTING EDEMA NOTED TO BLE. PT HAS REPORTED PAIN TWICE THIS SHIFT SO FAR AND RECEIVED MORPHINE PER MAR. ON REASSESSMENT, PAIN WAS TOLERABLE. ENCOURAGED INCENTIVE SPIROMETER 10 TIMES EVERY HOUR AWHILE AWAKE. FAMILY HAS VISITED THROUGHOUT SHIFT. PT IS CURRENTLY DOWN IN SURGERY GETTING A BKA. BED IN LOWEST POSITION. CALL LIGHT WITHIN REACH.
--- NOTE | 2022-10-04 21:07 | SUR.OPER ---
Updated family at this time.
[2022-10-04 21:11] LABS: POC Glucose,Bedside 128 (70-110)
--- NOTE | 2022-10-04 21:15 | SUR.OPER ---
FSBS 128
--- NOTE | 2022-10-04 21:44 | EXP.ANES.I ---
[facility] Anesthesia Record Part I Anesthesia Record I Intake, IV Amount: 1,000 Estimated blood loss (mL): 100 Urine output (mL): 0 Blood Pressure: 151/76 SaO2: 97 Pulse Rate: 73 Respiratory Rate: 22 Temperature: 97.4 F Patient is:: Drowsy and Oral/Nasal airway Stable to PACU at:: 21:40
[2022-10-04 21:54] LABS: POC Glucose,Bedside 125 (70-110)
--- NOTE | 2022-10-04 21:54 | EXP.OP.NOTE ---
Date of procedure: 10/04/22 Pre-op Diagnosis:: Right lower extremity diabetic foot ulcer with osteomyelitis sepsis and gas gangrene Post-op Diagnosis:: Same Procedure performed:: Right below-knee amputation Surgeon:: Lobo Shrestha DO ARRANGER ASSEMBLER:: Chemo Mckay Anesthesia: GETA Estimated blood loss (mL): 100 Clinical Note:: 47-year-old female with uncontrolled diabetes with a significant large nonhealing open wound on her heel with osteomyelitis and gas gangrene and significant infection with systemic signs of sepsis. After long discussion with the patient below-knee amputation will give her the best chance of clearing the infection and potentially save her life because of those factors she wished to undergo below-knee amputation presents today for such. Operative findings:: Large open wound to right heel with active infection significant lower extremity swelling with seeping compromised skin and soft tissue on the posterior flap Operative note:: Patient was identified preoperatively. Right lower extremity was marked with yes my initials. Transferred operative suite. Placed upon the operating bed. General anesthesia was administered. Airway secured. Right lower extremity prepped and draped in normal sterile fashion. Once prepped and draped final operative timeout performed to identify proper patient procedure and extremity. Everyone involved the case agreed. There is no counter indication beginning. She did receive preoperative antibiotics. That she has been receiving in the hospital. Marking pen was used to make plan incision 10 cm distal to the knee joint for resection of the tibia. There was some lower extremity swelling and significant seeping of the soft tissues and also some compromised tissue posteriorly around the ankle up around the Achilles. Careful marking was used to make a posterior flap. I was not completely happy with the available tissue that was viable but made incision around the viable tissue. Posterior flap again was measured Esmarch was not used but tourniquet was inflated. The anterior incision was made followed by the lateral and medial incisions of the flap for the below-knee amputation. On the anterior medial aspect the saphenous vein was identified and ligated the saphenous nerve was pulled on traction and cut. To the lateral aspect of the wound the superficial peroneal nerve was isolated and was pulled and resected as well. Dissection was then taken full around the flaps posteriorly. In the anterior compartment the anterior arteries and veins were double ligated with stick tie and a freehand tie and cut the proper tibia resection was performed and the fibula was resected 1 cm short of the tibia. Anterior aspect of the tibia was beveled. A bone hook was then used to pull the tibia anteriorly and using a amputation knife the stump was amputated down to the distal flap. The deep posterior compartment was all perforating vessels were clamped isolated the tibial nerve and vessels on the undersurface of the flap and stick tied and free tie of the vessels and pulled traction on the nerve cut peroneal vessels were also ligated and clamped the residual muscle was then removed. And the posterior flap sural nerve was pulled and the small saphenous vein was tied. Myodesis was performed by taking the posterior Achilles to the periosteum anteriorly above the tibia and gave proper coverage. The lateral aspect of the wound closed no issues there was an area on the medial aspect of the flap we spent a lot of time around there is some tissue that did not look completely healthy and the posterior flap cyst tissue was teed and careful closure through the skin was performed in this area Prior to closure the tourniquet was deflated to confirm hemostasis of the ligated vessels there is no significant bleeding once the tourniquet was deflated just bleeding of the soft tissues which were normal. Closure was completed with Vicryl
--- NOTE | 2022-10-04 22:21 | PC.NURSE ---
Pt back from surgery @ this time
--- NOTE | 2022-10-04 22:38 | SUR.PHASEI ---
2199-pt eating ice chips. Tolerated well. Awake & talking. Pillows placed under each arm. Multiple pillows behind patient's head and back for comfort measures. 2214--pt c/o cramping on and off to right leg. 2224-pt transported via bed to 2nd floor per Joseluis WESTON & Regina. Pt left in care of Catrachita. @ bedside.
[2022-10-05] VITALS (11 sets, daily range): BP systolic 124–175; BP diastolic 49–91; PULSE 73–87; RESP 15–18; TEMP 36.3–37.4; O2SAT 93–100; BMI 49.1
[2022-10-05 02:02] LABS: POC Glucose,Bedside 136 (70-110)
--- NOTE | 2022-10-05 05:37 | PC.NURSE ---
PT SCREAMING OUT IN PAIN @ 0524; THIS RN CALLED HOSP. MATTRESS MAKER TO UPDATE MATTRESS MAKER ON PT'S POOR PAIN MANAGEMENT CONTROL; NEW ORDER FOR ANOTHER 2 MG OF MORPHINE NOW PER MATTRESS MAKER. PT STATES HER PAIN COMES RANDOMLY AND SHE THINKS HER SURGICAL BANDAGE IS TO TIGHT OR SOMETHING IS INSIDE THE BANDAGE SQUEEZING HER LEG CAUSING HER PAIN; THIS RN EDUCATED PT AND S.O. THAT IS IN THE ROOM WITH HER ABOUT PHANTOM PAIN. PT AND S.O. VERBALIZED UNDERSTANDING, BUT THIS RN HAS TO KEEP REEDUCATING. THIS RN AND PT HAVE DISCUSSED THE FREQUENCY OF HER ORDERED PAIN MEDICINE AND THIS RN UPDATES PT FREQUENTLY ON WHEN SHE IS ABLE TO HAVE PAIN MEDS SO WE CAN TRY AND KEEP HER PAIN UNDER CONTROL. PT MAY NEED SOMETHING ELSE MEDICATION [place] OR A HIGHER DOSE OF MEDICATION TO HELP BETTER MANAGE PAIN; WILL PASS POOR PAIN MANAGEMENT WITH DAYSHIFT RN SO THEY CAN DISCUSS FURTHER WITH HOSP. BREWER AND SURGERY MD ON ROUNDS. OF RIGHT NOW @0542 THE EXTRA 2MG OF MORPHINE ORDERED BY HOSP. ASHLEY LITTLE, SEEMS TO BE HELPING WITH HER INTERMITTENT PHANTOM PAIN.
[2022-10-05 06:24] LABS: POC Glucose,Bedside 293 (70-110)
[2022-10-05 06:27] LABS: Anion Gap 11.2 mEq/L (5-15); Basophils % 0.1 % (0.1-2.0); Blood Urea Nitrogen 21 mg/dl (7-17); Calcium 7.7 mg/dl (8.4-10.2); Carbon Dioxide 27 mmol/L (22.0-30.0); Chloride 99 mmol/L (98-107); Creatinine Clearance Estimated 54 mL/min (50-200); Eosinophils % 0.2 % (0.1-12.0); Estimated Glomerular Filt Rate 48 ml/min (>60); GFR (African American) 58 ML/MIN (>60); Glucose 242 mg/dl (74-100); Hematocrit 25.6 % (37.0-47.0); Lymphocytes # 0.8 K/mm3 (0.7-4.5); Lymphocytes % 4.9 % (10-50); Mean Corpuscular Hemoglobin 25.7 pg (27.0-31.2); Mean Corpuscular Volume 82.9 fl (81-99); Monocytes # 0.5 K/mm3 (0.1-1.0); Monocytes % 3.2 % (1.7-9.3); Neutrophils # 15.3 K/mm3 (1.8-7.8); Neutrophils % 91.6 % (37.0-80.0); Platelet Count 568 K/mm3 (142-424); Potassium 4.2 mmoL/L (3.5-5.1); Red Blood Count 3.09 M/mm3 (4.20-5.40); Red Cell Distribution Width 15.9 % (11.5-17.5); Sodium 133 mmol/L (136-145); White Blood Count 16.7 K/mm3 (4.8-10.8)
[2022-10-05 06:34] LABS: MANUAL DIFFERENTIAL MANUAL DIFFERENTIAL (MANUAL DIFF)
[2022-10-05 07:11] LABS: Lymphocytes % 7 % (10-50); Monocytes % 7 % (2-9); Neutrophils % 86 % (42-76); Total Cells Counted 100
[2022-10-05 07:26] LABS: Hypochromasia 1+; Platelet Estimate Slight Increase
--- NOTE | 2022-10-05 08:47 | EXP.PHA.PN ---
Subjective *Date: 10/05/22 *Time: 08:47 Medical Exam Vital signs and Labs for Last 24 Hours: Vital Signs Temp Pulse Pulse Resp BP BP Pulse Ox 10/05/22 07:35 98.0 F 79 18 129/66 97 10/05/22 06:56 10/05/22 02:10 83 18 142/72 H 95 10/05/22 05:00 10/05/22 04:10 98.2 F 78 15 124/49 L 98 10/05/22 04:00 98.2 F 10/05/22 02:10 87 18 97 10/05/22 01:10 87 18 159/83 H 97 10/05/22 00:40 84 18 171/80 H 97 10/05/22 03:00 10/05/22 01:00 10/05/22 00:10 85 18 175/77 H 99 10/04/22 23:40 82 18 163/77 H 92 L 10/04/22 23:10 81 18 186/88 H 100 10/04/22 22:55 85 20 177/91 H 97 10/04/22 22:40 84 20 179/97 H 97 10/04/22 22:25 97.7 F 82 18 164/48 H 97 10/04/22 22:21 10/04/22 22:21 10/04/22 23:00 10/04/22 22:25 82 18 150/91 H 98 10/04/22 22:15 88 18 146/83 H 98 10/04/22 22:05 88 18 149/96 H 98 10/04/22 21:55 98 H 18 137/88 100 10/04/22 21:45 97.4 F L 94 H 18 149/89 H 100 10/04/22 15:00 10/04/22 15:01 98.3 F 87 16 157/94 H 100 10/04/22 13:00 10/04/22 11:00 10/04/22 10:55 98.2 F 79 18 158/76 H 100 10/04/22 09:00 10/04/22 21:45 97.4 F L 73 22 151/76 H O2 Del Method O2 Flow Rate 10/05/22 07:35 Room Air 10/05/22 06:56 Room Air 10/05/22 02:10 Room Air 10/05/22 05:00 Room Air 10/05/22 04:10 Room Air 10/05/22 04:00 10/05/22 02:10 Room Air 10/05/22 01:10 Room Air 10/05/22 00:40 Room Air 10/05/22 03:00 Room Air 10/05/22 01:00 Room Air 10/05/22 00:10 Room Air 10/04/22 23:40 Room Air 10/04/22 23:10 Room Air 10/04/22 22:55 Room Air 10/04/22 22:40 Room Air 10/04/22 22:25 Room Air 10/04/22 22:21 Room Air 10/04/22 22:21 Room Air 10/04/22 23:00 Room Air 10/04/22 22:25 Room Air 10/04/22 22:15 Room Air 10/04/22 22:05 Room Air 10/04/22 21:55 Nasal Cannula 2 10/04/22 21:45 Nasal Cannula 2 10/04/22 15:00 Room Air 10/04/22 15:01 Room Air 10/04/22 13:00 Room Air 10/04/22 11:00 Room Air 10/04/22 10:55 Room Air 10/04/22 09:00 Room Air 10/04/22 21:45 Intake and Output 10/04/22 10/05/22 10/05/22 23:59 07:59 15:59 Intake Total 1000 / 1669 1029 / 1029 Output Total 200 / 200 Balance 1000 / 1669 829 / 829 Intake: Intake, Oral Amount 360 / 360 Intake, Other Amount 669 / 669 Intake, Total IV Amount 1000 / 1000 Output: Output, Urine Amount 200 / 200 Other: Number of Unmeasured Voids 1 Weight 142.116 kg Patient Weight 10/05/22 23:59 Weight 142.116 kg Laboratory Results - last 24 hr 10/04/22 05:41: Total Counted 100, Neutrophils % (Manual) 86 H, Lymphocytes % (Manual) 10, Monocytes % (Manual) 3, Eosinophils % (Manual) 1, Platelet Estimate Moderate increase, Hypochromasia 2+ 10/04/22 11:33: POC Glucose 174 H 10/04/22 21:04: POC Glucose 128 H 10/04/22 21:47: POC Glucose 125 H 10/04/22 22:45: POC Glucose 136 H 10/05/22 05:49: WBC 16.7 H, RBC 3.09 L, Hgb 8.0 L, Hct 25.6 L, MCV 82.9, MCH 25.7 L, MCHC 31.0 L, RDW 15.9, Plt Count 568 H, MPV 8.0, Neut % (Auto) 91.6 H, Lymph % (Auto) 4.9 L, [place] % (Auto) 3.2, Eos % (Auto) 0.2, Baso % (Auto) 0.1, Neut # (Auto) 15.3 H, Lymph # (Auto) 0.8, [place] # (Auto) 0.5, Eos # (Auto) 0.0, Baso # (Auto) 0.0, Total Counted 100, Neutrophils % (Manual) 86 H, Lymphocytes % (Manual) 7 L, Monocytes % (Manual) 7, Platelet Estimate Slight increase, Hypochromasia 1+, Sodium 133 L, Potassium 4.2 D, Chloride 99, Carbon Dioxide 27, Anion Gap 11.2, BUN 21 H, Creatinine 1.20 H D, Estimated Creat Clear 54, Estimated GFR 48 L, Est GFR ( Amer) 58 L D, Glucose 242 H, Calcium 7.7 L 10/05/22 06:03: POC Glucose 293 H I & O for Labs for Last 24 Hours: Intake & Output 10/02/22 10/03/22 10/04/22 10/05/22 23:59 23:59 23:59 23:59 Intake Total 1080 / 1080 2600 / 2600 1000 / 1669 1029 / 1029
--- NOTE | 2022-10-05 08:52 | PC.NURSE ---
COURTESY TECH NOTE; ROUNDED ON PT 0800, PT SITTING UP IN BED AT THIS TIME, DENIED NEED FOR DRINK, ASSISTANCE WITH RESTROOM, AND NEED TO REPOSITION IN BED. CALL LIGHT WITHIN REACH, NO FURTHER REQUESTS AT THIS TIME Dana SANTANA, SRNA
[2022-10-05 09:14] LABS: POC Glucose,Bedside 131 (70-110)
--- NOTE | 2022-10-05 09:54 | EXP.PN ---
Subjective *Date: 10/05/22 *Time: 17:49 Interval history: Yesterday the patient had a R BKA with no apparent complications. CBC with hgb 8.0, decreased from 9.4, wbc 16.7k, increased from 15.2K CMP with cr 1.2, decreased from 1.8 dose of morphine PRN for breakthrough pain was increased overnight. she continues to complain of pain in her R leg and states she barely slept last night. Exam Data for Last 24 hours Vital signs and Labs for Last 24 Hours: Temp Pulse Resp BP Pulse Ox O2 Del Method O2 Flow Rate 98.0 F 79 18 129/66 97 Room Air 2 10/05/22 07:35 10/05/22 07:35 10/05/22 07:35 10/05/22 07:35 10/05/22 07:35 10/05/22 09:05 10/04/22 22:30 Laboratory Results - last 24 hr 10/04/22 11:33: POC Glucose 174 H 10/04/22 21:04: POC Glucose 128 H 10/04/22 21:47: POC Glucose 125 H 10/04/22 22:45: POC Glucose 136 H 10/05/22 05:49: WBC 16.7 H, RBC 3.09 L, Hgb 8.0 L, Hct 25.6 L, MCV 82.9, MCH 25.7 L, MCHC 31.0 L, RDW 15.9, Plt Count 568 H, MPV 8.0, Neut % (Auto) 91.6 H, Lymph % (Auto) 4.9 L, [place] % (Auto) 3.2, Eos % (Auto) 0.2, Baso % (Auto) 0.1, Neut # (Auto) 15.3 H, Lymph # (Auto) 0.8, [place] # (Auto) 0.5, Eos # (Auto) 0.0, Baso # (Auto) 0.0, Total Counted 100, Neutrophils % (Manual) 86 H, Lymphocytes % (Manual) 7 L, Monocytes % (Manual) 7, Platelet Estimate Slight increase, Hypochromasia 1+, Sodium 133 L, Potassium 4.2 D, Chloride 99, Carbon Dioxide 27, Anion Gap 11.2, BUN 21 H, Creatinine 1.20 H D, Estimated Creat Clear 54, Estimated GFR 48 L, Est GFR ( Amer) 58 L D, Glucose 242 H, Calcium 7.7 L 10/05/22 06:03: POC Glucose 293 H 10/05/22 08:52: POC Glucose 131 H I & O for Last 24 hours: Intake & Output 10/02/22 10/03/22 10/04/22 10/05/22 23:59 23:59 23:59 23:59 Intake Total 1080 / 1080 2600 / 2600 1000 / 1669 1029 / 1029 Output Total 1000 / 1000 300 / 300 0 / 0 200 / 200 Balance 80 / 80 2300 / 2300 1000 / 1669 829 / 829 Weight 146 kg 146 kg 146 kg 142.116 kg Microbiology Reports for the Last 24 Hours: Microbiology 10/01/22 13:52 Foot,Right Bone Culture - Preliminary Proteus vulgaris/penneri 10/01/22 13:40 Ankle,Right Gram Stain - Final 10/01/22 13:40 Ankle,Right Wound Culture - Preliminary NO GROWTH AFTER 72 HOURS 10/01/22 13:45 Foot,Right Gram Stain - Final 10/01/22 13:45 Foot,Right Wound Culture - Final Proteus vulgaris Assessment and Plan *Assessment and plan (1) Sepsis: Status: Acute Qualifiers: Sepsis type: sepsis due to unspecified organism Sepsis acute organ dysfunction status: without acute organ dysfunction Qualified Code(s): A41.9 - Sepsis, unspecified organism Category: Medical Code(s): A41.9 - Sepsis, unspecified organism (2) Diabetic ulcer of foot with necrosis of muscle: Status: Acute Qualifiers: Diabetic foot ulcer location: heel Diabetes mellitus type: type 2 Laterality: right Qualified Code(s): E11.621 - Type 2 diabetes mellitus with foot ulcer; L97.413 - Non-pressure chronic ulcer of right heel and midfoot with necrosis of muscle Category: Medical Code(s): E11.621 - Type 2 diabetes mellitus with foot ulcer; L97.503 - Non-pressure chronic ulcer of other part of unspecified foot with necrosis of muscle (3) Diabetes mellitus: Status: Chronic Qualifiers: Diabetes mellitus type: type 2 Diabetes mellitus intermediate insulin use: unspecified termite treater insulin use status Diabetes mellitus complication status: with other specified complication Qualified Code(s): E11.69 - Type 2 diabetes mellitus with other specified complication Category: Medical Code(s): E11.9 - Type 2 diabetes mellitus without complications (4) HHD (hypertensive heart disease): Status: Chronic Qualifiers: Heart failure presence: without heart failure Qualified Code(s): I11.9 - Hyperten
[2022-10-05 11:25] LABS: POC Glucose,Bedside 87 (70-110)
--- NOTE | 2022-10-05 11:38 | DIET.NUTRFU ---
Saw patient post amputation to review protein needs for healing and rehab. Patient has decided she is going to rehab upon discharge to get therapy. Reviewed protein foods and amount and provided handout. Also took lunch order according to her food preferences on a diabetic diet
--- NOTE | 2022-10-05 14:21 | P.PNANES_ITS ---
[facility] Anesthesia Record Part II Anesthesia Record Part II Discharge Time: 22:25 (10/04/22) Destination: Medical Surgical Department PACU nurse assessment reviewed?: Yes Patient Condition:: Good Anesthesia Complications:: None Swallowing reflex intact?: Yes Cyanosis?: No Blood Pressure: 150/91 Pulse Rate: 82 Temperature: 97.4 F Mental Status: Alert & Oriented Pain level:: 2 Nausea and/or vomitting:: None Intake, IV Amount: 0
--- NOTE | 2022-10-05 15:52 | P.PN_ITS ---
Subjective *Date: 10/05/22 *Time: 15:52 Interval history: Patient reports difficulty with pain postoperatively. She states she is having difficulty with positioning in the splint is uncomfortable in the back of her leg. Reports that the pain is slightly better this afternoon than it was last night. Ortho Exam (Inpt) Vital signs and Labs for Last 24 Hours: Temp Pulse Resp BP Pulse Ox O2 Del Method O2 Flow Rate 98.9 F 78 18 141/79 H 100 Room Air 2 10/05/22 15:44 10/05/22 15:44 10/05/22 15:44 10/05/22 15:44 10/05/22 15:44 10/05/22 15:44 10/04/22 22:30 Laboratory Results - last 24 hr 10/04/22 21:04: POC Glucose 128 H 10/04/22 21:47: POC Glucose 125 H 10/04/22 22:45: POC Glucose 136 H 10/05/22 05:49: WBC 16.7 H, RBC 3.09 L, Hgb 8.0 L, Hct 25.6 L, MCV 82.9, MCH 25.7 L, MCHC 31.0 L, RDW 15.9, Plt Count 568 H, MPV 8.0, Neut % (Auto) 91.6 H, Lymph % (Auto) 4.9 L, [place] % (Auto) 3.2, Eos % (Auto) 0.2, Baso % (Auto) 0.1, Neut # (Auto) 15.3 H, Lymph # (Auto) 0.8, [place] # (Auto) 0.5, Eos # (Auto) 0.0, Baso # (Auto) 0.0, Total Counted 100, Neutrophils % (Manual) 86 H, Lymphocytes % (Manual) 7 L, Monocytes % (Manual) 7, Platelet Estimate Slight increase, Hypochromasia 1+, Sodium 133 L, Potassium 4.2 D, Chloride 99, Carbon Dioxide 27, Anion Gap 11.2, BUN 21 H, Creatinine 1.20 H D, Estimated Creat Clear 54, Estimated GFR 48 L, Est GFR ( Amer) 58 L D, Glucose 242 H, Calcium 7.7 L 10/05/22 06:03: POC Glucose 293 H 10/05/22 08:52: POC Glucose 131 H 10/05/22 11:05: POC Glucose 87 I & O for Labs for Last 24 Hours: Intake & Output 10/02/22 10/03/22 10/04/22 10/05/22 23:59 23:59 23:59 23:59 Intake Total 1080 / 1080 2600 / 2600 1000 / 1669 1629 / 1629 Output Total 1000 / 1000 300 / 300 0 / 0 200 / 200 Balance 80 / 80 2300 / 2300 1000 / 1669 1429 / 1429 Weight 321 lb 13.998 oz 321 lb 13.998 oz 321 lb 13.998 oz 313 lb 5 oz Microbiology Reports for the Last 24 Hours: Microbiology 10/01/22 13:45 Foot,Right Bone Culture - Preliminary 10/01/22 13:52 Foot,Right Bone Culture - Preliminary Proteus vulgaris/penneri Gram Positive Cocci 10/01/22 13:40 Ankle,Right Gram Stain - Final 10/01/22 13:40 Ankle,Right Wound Culture - Preliminary NO GROWTH AFTER 72 HOURS Findings:: Right lower extremity dressing intact. Assessment and Plan *Assessment and plan (1) Status post below knee amputation of right lower extremity: Status: Acute Category: Surgical Code(s): Z89.511 - Acquired absence of right leg below knee Plan Patient will continue with IV antibiotics currently. No definitive surgical cultures are back from the initial surgery. Monitoring H&H with acute blood loss anemia secondary to surgery. Given septic symptoms continuing IV antibiotics as appropriate can be adjusted with intraoperative cultures once available.. Patient may require PICC line which can be placed on Saturday. Then once stable and IV antibiotics arranged is a candidate for transfer to rehab in [place] anticipate Saturday.
[2022-10-05 16:47] LABS: POC Glucose,Bedside 83 (70-110)
--- NOTE | 2022-10-05 17:52 | PC.NURSE ---
VS stable. Dressing clean, dry, and intact. Patient educated on use of incentive spirometer and patient able to return demonstration on correct use of incentive spirometer. Despite prn pain medications, patient continues to verbalize pain 8-9 on a scale of 0-10, [address] Dr[address] Fierro notified and 1 mg of dilaudid ordered. After administration of dilaudid patient appears to be resting. Patient's face free of grimacing, breathing pattern normal. On evening rounds patient appears to be sleeping peacefully. No grimacing, no rigidity in posture, snoring noted. Patient able to be aroused but then returns to resting immediately after.
[2022-10-05 20:17] LABS: POC Glucose,Bedside 59 (70-110)
--- NOTE | 2022-10-05 20:23 | PC.NURSE ---
notified CURTIS Bhardwaj of pt. FSBS of 59, pt. is lethargic and unable to eat. D50 IV push ordered.
[2022-10-05 21:45] LABS: POC Glucose,Bedside 91 (70-110)
--- NOTE | 2022-10-05 22:17 | PC.NURSE ---
Addendum entered by Sharda Hewitt RN 10/05/22 22:17: at 2057 Original Note: glucose 91 post intervention per MAR
[2022-10-06] VITALS (7 sets, daily range): BP systolic 124–169; BP diastolic 56–101; PULSE 72–85; RESP 18; TEMP 36.9–37.4; O2SAT 95–98; BMI 50.1
--- NOTE | 2022-10-06 02:40 | PC.NURSE ---
no bath tonight, took one on dayshift.
--- NOTE | 2022-10-06 05:10 | PC.NURSE ---
pain controlled with IV pain meds per MAY. bed linens, gown and purewick replaced at 0400. pt slept well tonight. VSS. RA. at bedside. bed locked and in lowest position, call light within reach.
--- NOTE | 2022-10-06 05:16 | PC.NURSE ---
educated pt to TDBC and use IS
--- NOTE | 2022-10-06 05:35 | PC.NURSE ---
redness of the sacral area noted, cream applied t/o night during rounds. pt states the cream has helped.
--- NOTE | 2022-10-06 05:40 | PC.NURSE ---
glucose 120. Held felisa AM humalog of 8units r/t decreased oral intake r/t IVP Dilaudid causing drowsiness.
[2022-10-06 08:26] LABS: Chloride 107 mmol/L (98-107); Potassium 4.4 mmoL/L (3.5-5.1); Sodium 137 mmol/L (136-145)
[2022-10-06 08:29] LABS: Alanine Aminotransferase 26 U/L (12-78); Albumin/Globulin Ratio 0.8 (1.1-1.8); Alkaline Phosphatase 76 U/L (38-126); Anion Gap 12.4 mEq/L (5-15); Aspartate Amino Transferase 67 U/L (14-36); Bilirubin,Total 0.4 mg/dl (0.2-1.3); Blood Urea Nitrogen 17 mg/dl (7-17); Carbon Dioxide 22 mmol/L (22.0-30.0); Creatinine Clearance Estimated 72 mL/min (50-200); Estimated Glomerular Filt Rate 67 ml/min (>60); GFR (African American) 81 ML/MIN (>60); Globulin 3.9 g/dL (1.3-3.2); Glucose 80 mg/dl (74-100); Total Protein,Serum 6.9 g/dl (6.3-8.2)
[2022-10-06 09:31] LABS: POC Glucose,Bedside 120 (70-110)
[2022-10-06 09:31] LABS: POC Glucose,Bedside 128 (70-110)
[2022-10-06 09:50] LABS: Basophils % 0.3 % (0.1-2.0); Eosinophils # 0.3 K/mm3 (0.0-0.4); Eosinophils % 2.5 % (0.1-12.0); Hematocrit 23.6 % (37.0-47.0); Hemoglobin 7.6 g/dL (12.2-16.2); Lymphocytes # 1.1 K/mm3 (0.7-4.5); Lymphocytes % 8.7 % (10-50); Mean Corpuscular HGB Conc 32.1 g/dL (31.8-35.4); Mean Corpuscular Hemoglobin 26.2 pg (27.0-31.2); Mean Corpuscular Volume 81.6 fl (81-99); Mean Platelet Volume 7.7 fl (7.4-10.4); Monocytes # 0.6 K/mm3 (0.1-1.0); Monocytes % 4.6 % (1.7-9.3); Neutrophils # 11.1 K/mm3 (1.8-7.8); Platelet Count 478 K/mm3 (142-424); Red Blood Count 2.89 M/mm3 (4.20-5.40); Red Cell Distribution Width 16.5 % (11.5-17.5); White Blood Count 13.2 K/mm3 (4.8-10.8)
--- NOTE | 2022-10-06 10:55 | PC.NURSE ---
Courtesy Round Patient awake with visitor at bedside. Trash and linens emptied. Ice water refilled . Patient voiced no other needs . Call light within reach
[2022-10-06 11:14] LABS: POC Glucose,Bedside 116 (70-110)
--- NOTE | 2022-10-06 13:20 | PC.NURSE ---
Splint removed after incontinent bowl episode. Dr. Shrestha paged and made aware of soiled splint and removal. No orders for new splint given. Ok per Md to wrap with soft roll and opal bandage until evaluation on saturday.
[2022-10-06 16:31] LABS: POC Glucose,Bedside 161 (70-110)
--- NOTE | 2022-10-06 16:44 | EXP.ACUTE.PN ---
Subjective *Date: 10/06/22 *Time: 16:44 Interval history: - WBC count improving - Mild drop in Hb noted form today - pt states her pain well controlled on current regimen - jardiance Dcd as pt already with acute osteomyilitis requiring amputation. ( SGLT-2 inhibitors increases risk of skin and soft tissue infection and amputation risk) - pt to bring Trulicity that she takes at home for her diabetes - not ambulating much - tolerating diet Medical Exam Vital signs and Labs for Last 24 Hours: Vital Signs Temp Pulse Resp BP Pulse Ox O2 Del Method 10/06/22 15:08 98.4 F 81 18 144/67 H 98 Room Air 10/06/22 15:00 Room Air 10/06/22 13:05 Room Air 10/06/22 11:20 Room Air 10/06/22 08:40 Room Air 10/06/22 08:40 Room Air 10/06/22 12:00 98.7 F 77 18 132/66 97 10/06/22 07:58 148/78 H 10/06/22 07:35 98.7 F 84 18 169/101 H 97 Room Air 10/06/22 04:00 98.4 F 85 18 133/63 10/06/22 05:00 Room Air 10/06/22 06:35 Room Air 10/06/22 03:00 Room Air 10/06/22 00:00 99.4 F 72 144/78 H 95 10/05/22 20:00 Room Air 10/06/22 00:55 Room Air 10/05/22 23:00 Room Air 10/05/22 21:00 Room Air 10/05/22 20:00 99.4 F 76 18 159/69 H 93 L Room Air 10/05/22 18:39 Room Air Intake and Output 10/06/22 10/06/22 10/06/22 07:59 15:59 23:59 Intake Total 1314 / 1554 240 / 1554 Output Total 450 / 1450 1000 / 1450 Balance 864 / 104 -760 / 104 Intake: Intake, Oral Amount 480 / 720 240 / 720 Intake, Total IV Amount 834 / 834 0.9 % Sodium Chloride 1000ML 1, 578 / 578 000 ml @ 50 mls/hr IV .Q20H [facility] Rx#:[id number] Pipercillin/Tazo 3.375 gm In 0. 256 / 256 9 % Sodium Chloride 50 ml @ 100 mls/hr IV 0300,0900,1500,2100 [facility] Rx#:[id number] Output: Output, Urine Amount 450 / 1450 1000 / 1450 Other: Number of Unmeasured Voids 1 1 Number of Bowel Movements 1 1 Weight 144.781 kg Patient Weight 10/06/22 23:59 Weight 144.781 kg Laboratory Results - last 24 hr 10/05/22 16:40: POC Glucose 83 10/05/22 20:08: POC Glucose 59 L 10/05/22 20:58: POC Glucose 91 10/06/22 05:31: POC Glucose 120 H 10/06/22 06:57: Sodium 137, Potassium 4.4, Chloride 107, Carbon Dioxide 22, Anion Gap 12.4, BUN 17, Creatinine 0.90 D, Estimated Creat Clear 72, Estimated GFR 67, Est GFR ( Amer) 81 D, Glucose 80, Calcium 8.0 L, Total Bilirubin 0.4, AST 67 H D, ALT 26, Alkaline Phosphatase 76, Total Protein 6.9, Albumin 3.0 L, Globulin 3.9 H, Albumin/Globulin Ratio 0.8 L 10/06/22 08:54: POC Glucose 128 H 10/06/22 09:45: WBC 13.2 H, RBC 2.89 L, Hgb 7.6 L, Hct 23.6 L, MCV 81.6, MCH 26.2 L, MCHC 32.1, RDW 16.5, Plt Count 478 H, MPV 7.7, Neut % (Auto) 84.0 H, Lymph % (Auto) 8.7 L, [place] % (Auto) 4.6, Eos % (Auto) 2.5, Baso % (Auto) 0.3, Neut # (Auto) 11.1 H, Lymph # (Auto) 1.1, [place] # (Auto) 0.6, Eos # (Auto) 0.3, Baso # (Auto) 0.0 10/06/22 11:06: POC Glucose 116 H 10/06/22 16:19: POC Glucose 161 H I & O for Labs for Last 24 Hours: Intake & Output 10/03/22 10/04/22 10/05/22 10/06/22 23:59 23:59 23:59 23:59 Intake Total 2600 / 2600 1000 / 1669 1629 / 2141 1554 / 1554 Output Total 300 / 300 0 / 0 200 / 200 1450 / 1450 Balance 2300 / 2300 1000 / 1669 1429 / 1941 104 / 104 Weight 146 kg 146 kg 142.116 kg 144.781 kg Microbiology Reports for the Last 24 Hours: Microbiology 10/01/22 13:40 Ankle,Right Gram Stain - Final 10/01/22 13:40 Ankle,Right Wound Culture - Preliminary NO GROWTH AFTER 4 DAYS 10/01/22 13:45 Foot,Right Bone Culture - Preliminary 09/30/22 18:25 Blood Blood Culture - Final NO GROWTH AFTER 5 DAYS 09/30/22 16:11 Blood Blood Culture - Final NO GROWTH AFTER 5 DAYS Constitutional: Present no acute distress and obese Head: Present atraumatic and normocephalic Respiratory: Present dimini
--- NOTE | 2022-10-06 17:27 | PC.NURSE ---
Patient educated on importance of turning and shifting positions in the bed every two hours to prevent skin breakdown and formation of pressure ulcers. Patient's skin in saud area and coccyx very excoriated from incontinent episodes of bowel and bladder. Wedge utilized for turning patient but patient stated she asked her to remove the wedge. Patient then reeducated about importance of relieving pressure by turning and patient states she understands but still removes devices in use to prevent breakdown. Patient able to use incentive spirometer correctly throughout shift. VS stable and patient remains on room air. Patient verbalizes pain and prn pain medication given. Patient verbalizes that she wants to use hydrocodone medication first then utilize dilaudid for breakthrough pain as needed. No other changes noted.
[2022-10-06 20:47] LABS: POC Glucose,Bedside 224 (70-110)
[2022-10-07] VITALS (7 sets, daily range): BP systolic 132–164; BP diastolic 68–79; PULSE 73–84; RESP 18; TEMP 36.4–37.1; O2SAT 93–100; BMI 49.1
--- NOTE | 2022-10-07 04:56 | PC.NURSE ---
Patient has rested this shift. Was in quite a bit of pain, see MAR. Also has 1 large BM. Dressing on coccyx changed, as well as new purewick with toni care was done. No issues were stated by patient. family remains at bedside.
[2022-10-07 06:25] LABS: POC Glucose,Bedside 242 (70-110)
[2022-10-07 09:11] LABS: POC Glucose,Bedside 219 (70-110)
--- NOTE | 2022-10-07 10:11 | PC.NURSE ---
pain rating 8, giving norco for pain as patient cannot have dilaudid at this time. Addressing with MD about changing pain regimen for patient.
[2022-10-07 11:45] LABS: POC Glucose,Bedside 202 (70-110)
--- NOTE | 2022-10-07 14:16 | PC.NURSE ---
Patient's brought in patient's trulicity 3mg/0.5 ml injection as directed by MD. Patient's gave patient the injection before medication could be ordered and verified with pharmacy. Pharmacy and MD notified.
--- NOTE | 2022-10-07 15:59 | EXP.ACUTE.PN ---
Subjective *Date: 10/07/22 *Time: 15:59 Interval history: Nurse reporting concern for demanding pain medication, patient dozing off with Dilaudid Bone culture from growing Enterococcus along with Proteus Patient brought to the Trulicity 3 mg dose pens from home, 1 dose given today, q. weekly medication Blood sugars elevated to 200s likely after stopping Jardiance Patient said her pain is okay with the current regimen and does not want us to change anything on it. She said she was able to bring her Trulicity pen from home and 1 dose was given by her today No diarrhea nausea She is complaining of excessive pain on the amputated leg, ?? Phantom limb pain No fevers Medical Exam Vital signs and Labs for Last 24 Hours: Vital Signs Temp Pulse Resp BP Pulse Ox O2 Del Method 10/07/22 15:00 Room Air 10/07/22 15:48 98.7 F 80 18 151/71 H 100 Room Air 10/07/22 13:06 Room Air 10/07/22 11:00 Room Air 10/07/22 11:31 98.0 F 74 18 142/73 H 99 Room Air 10/07/22 10:10 77 164/79 H 10/07/22 08:00 98.0 F 82 18 98 Room Air 10/07/22 08:45 Room Air 10/07/22 08:45 Room Air 10/07/22 06:48 Room Air 10/07/22 04:00 98.2 F 78 18 133/69 94 L Room Air 10/07/22 04:55 Room Air 10/07/22 03:00 Room Air 10/07/22 01:00 Room Air 10/07/22 00:00 97.6 F 73 18 132/68 98 Room Air 10/06/22 23:00 Room Air 10/06/22 21:00 Room Air 10/06/22 20:00 Room Air 10/06/22 20:00 98.6 F 80 18 124/56 L 98 Room Air 10/06/22 18:38 Room Air 10/06/22 17:20 Room Air Intake and Output 10/06/22 10/07/22 10/07/22 23:59 07:59 15:59 Intake Total 544 / 2098 550 / 550 Output Total 700 / 2150 1100 / 1550 450 / 1550 Balance -156 / -52 -1100 / -1000 100 / -1000 Intake: Intake, Oral Amount 550 / 550 Intake, Total IV Amount 544 / 1378 0.9 % Sodium Chloride 1000ML 1, 444 / 1022 000 ml @ 50 mls/hr IV .Q20H [facility] Rx#:[id number] Cefepime HCl 2 gm In 0.9 % 100 / 100 Sodium Chloride 100 ml @ 200 mls/hr IV Q8H [facility] Rx#:[id number] Output: Output, Urine Amount 700 / 2150 1100 / 1550 450 / 1550 Other: Number of Unmeasured Voids 1 1 1 Number of Bowel Movements 1 1 1 Weight 142.088 kg Patient Weight 10/07/22 23:59 Weight 142.088 kg Laboratory Results - last 24 hr 10/06/22 16:19: POC Glucose 161 H 10/06/22 20:15: POC Glucose 224 H 10/07/22 06:10: POC Glucose 242 H 10/07/22 08:56: POC Glucose 219 H 10/07/22 11:36: POC Glucose 202 H I & O for Labs for Last 24 Hours: Intake & Output 10/04/22 10/05/22 10/06/22 10/07/22 23:59 23:59 23:59 23:59 Intake Total 1000 / 1669 1629 / 2141 2098 / 2098 550 / 550 Output Total 0 / 0 200 / 200 2150 / 2150 1550 / 1550 Balance 1000 / 1669 1429 / 1941 -52 / -52 -1000 / -1000 Weight 146 kg 142.116 kg 144.781 kg 142.088 kg Microbiology Reports for the Last 24 Hours: Microbiology 10/01/22 13:45 Foot,Right Bone Culture - Preliminary 10/01/22 13:40 Ankle,Right Gram Stain - Final 10/01/22 13:40 Ankle,Right Wound Culture - Final NO GROWTH AFTER 5 DAYS 10/01/22 13:52 Foot,Right Bone Culture - Final Proteus vulgaris/penneri Enterococcus species Constitutional: Present no acute distress and morbidly obese Head: Present atraumatic and normocephalic Respiratory: Present normal respiratory effort, able to speak in complete sentences and symmetric chest movement Cardiac: Present Reg Rate and Rhythm GI: Present soft Comments:: Nontender Rectal (female): Present deferred (female): Present deferred Comment:: Right lower extremity BKA, amputation site dressing intact no soakage noted. Sensations above amputation site intact. Left lower extremity unremarkable. Comment:: Rash on the lower back, possible first-degree pressure ulcer Neuro: Present Cranial Nerve
[2022-10-07 16:38] LABS: POC Glucose,Bedside 204 (70-110)
--- NOTE | 2022-10-07 17:34 | PC.NURSE ---
VS stable. Patient reports pain at levels of 8 on a pain scale o-10, 10 being worst pain. PRN hydrocodone and dilaudid given. Patient states pain is still 8 on pain scale. MD aware and new orders placed to help control pain regimen. Patient educated on importance of using po pain medications first and only using IV medications for breakthrough pain. Patient states she understands. VS stable and patient remains on room air. Patient educated during shift importance of turning from side to side to prevent any further skin breakdown. Patient states she understands but requests to sit upright in bed on her back. Patient states she leans from side to side periodically. Patient educated on importance of offloading pressure and turning to each side as leaning to the side does not offload the pressure on the coccyx.
[2022-10-07 21:19] LABS: POC Glucose,Bedside 136 (70-110)
[2022-10-08] VITALS: BP 131/68; PULSE 71; RESP 18; TEMP 36.7; O2SAT 97
--- NOTE | 2022-10-08 02:42 | PC.NURSE ---
with rounds, Tech and Rn cleaned patient up and put wedge on Left side. When RN and Tech checked on patient again 45min later wedge was out and patient was again on sitting supine on coccyx.
[2022-10-08 04:00] VITALS: BP 146/81; PULSE 77; RESP 18; TEMP 36.9; O2SAT 96; BMI 49.2
--- NOTE | 2022-10-08 04:48 | PC.NURSE ---
Patient has had a good night. Did have some pain, see MAR. Has had 1 BM incontinent, patient was cleaned up, barrier cream in place and new dressing was placed. RN has encouraged patient to switch positions frequently to decrease pressure on coccyx. No issues were stated by patient or family.
[2022-10-08 06:25] LABS: Basophils % 0.3 % (0.1-2.0); Eosinophils # 0.4 K/mm3 (0.0-0.4); Eosinophils % 3.4 % (0.1-12.0); Hematocrit 25.5 % (37.0-47.0); Hemoglobin 7.9 g/dL (12.2-16.2); Lymphocytes # 1.9 K/mm3 (0.7-4.5); Lymphocytes % 15.6 % (10-50); Mean Corpuscular HGB Conc 30.8 g/dL (31.8-35.4); Mean Corpuscular Hemoglobin 25.9 pg (27.0-31.2); Mean Corpuscular Volume 84.1 fl (81-99); Mean Platelet Volume 8.7 fl (7.4-10.4); Monocytes # 0.7 K/mm3 (0.1-1.0); Monocytes % 5.5 % (1.7-9.3); Neutrophils # 9.1 K/mm3 (1.8-7.8); Neutrophils % 75.3 % (37.0-80.0); Platelet Count 554 K/mm3 (142-424); Red Blood Count 3.03 M/mm3 (4.20-5.40); Red Cell Distribution Width 16.5 % (11.5-17.5); White Blood Count 12.1 K/mm3 (4.8-10.8)
[2022-10-08 06:41] LABS: Alanine Aminotransferase 27 U/L (12-78); Albumin Level 3.1 g/dl (3.5-5.0); Albumin/Globulin Ratio 0.9 (1.1-1.8); Alkaline Phosphatase 76 U/L (38-126); Anion Gap 8.7 mEq/L (5-15); Aspartate Amino Transferase 39 U/L (14-36); Bilirubin,Total 0.2 mg/dl (0.2-1.3); Blood Urea Nitrogen 15 mg/dl (7-17); Calcium 8.2 mg/dl (8.4-10.2); Carbon Dioxide 29 mmol/L (22.0-30.0); Chloride 104 mmol/L (98-107); Creatinine Clearance Estimated 64 mL/min (50-200); Estimated Glomerular Filt Rate 59 ml/min (>60); GFR (African American) 72 ML/MIN (>60); Globulin 3.6 g/dL (1.3-3.2); Glucose 168 mg/dl (74-100); Potassium 3.7 mmoL/L (3.5-5.1); Sodium 138 mmol/L (136-145); Total Protein,Serum 6.7 g/dl (6.3-8.2)
[2022-10-08 06:47] LABS: POC Glucose,Bedside 176 (70-110)
[2022-10-08 08:00] VITALS: BP 142/76; PULSE 71; RESP 18; TEMP 36.7; O2SAT 94
--- NOTE | 2022-10-08 09:44 | PC.NURSE ---
went in to do morning assessment. pt was difficult to arouse. when awake, pt was calm and appeared in no distress. pt then asked if i was going to ask about her pain level, pt began to cry stating im just in so much pain, dont take my iv pain meds away pt states her pain is 9 on a pain scale of 0/10
--- NOTE | 2022-10-08 10:09 | P.PN_ITS ---
Subjective *Date: 10/08/22 *Time: 10:10 Interval history: Patient was getting up to the chair with therapy this morning. Ortho Exam (Inpt) Vital signs and Labs for Last 24 Hours: Temp Pulse Resp BP Pulse Ox O2 Del Method O2 Flow Rate 98.1 F 71 18 142/76 H 94 L Room Air 2 10/08/22 08:00 10/08/22 08:00 10/08/22 08:00 10/08/22 08:00 10/08/22 08:00 10/08/22 09:00 10/04/22 22:30 Laboratory Results - last 24 hr 10/07/22 11:36: POC Glucose 202 H 10/07/22 16:28: POC Glucose 204 H 10/07/22 20:23: POC Glucose 136 H 10/08/22 05:44: POC Glucose 176 H 10/08/22 06:12: WBC 12.1 H, RBC 3.03 L, Hgb 7.9 L, Hct 25.5 L, MCV 84.1, MCH 25.9 L, MCHC 30.8 L, RDW 16.5, Plt Count 554 H, MPV 8.7, Neut % (Auto) 75.3, Lymph % (Auto) 15.6, [place] % (Auto) 5.5, Eos % (Auto) 3.4, Baso % (Auto) 0.3, Ne ut # (Auto) 9.1 H, Lymph # (Auto) 1.9, [place] # (Auto) 0.7, Eos # (Auto) 0.4, Baso # (Auto) 0.0, Sodium 138, Potassium 3.7, Chloride 104, Carbon Dioxide 29, Anion Gap 8.7, BUN 15, Creatinine 1.00, Estimated Creat Clear 64, Estimated GFR 59, Est GFR ( Amer) 72, Glucose 168 H, Calcium 8.2 L, Total Bilirubin 0.2, AST 39 H D, ALT 27, Alkaline Phosphatase 76, Total Protein 6.7, Albumin 3.1 L, Globulin 3.6 H, Albumin/Globulin Ratio 0.9 L I & O for Labs for Last 24 Hours: Intake & Output 10/05/22 10/06/22 10/07/22 10/08/22 23:59 23:59 23:59 23:59 Intake Total 1629 / 2141 2098 / 2098 2990 / 2990 240 / 240 Output Total 200 / 200 2150 / 2150 1550 / 1550 850 / 850 Balance 1429 / 1941 -52 / -52 1440 / 1440 -610 / -610 Weight 313 lb 5 oz 319 lb 3 oz 313 lb 4 oz 314 lb Microbiology Reports for the Last 24 Hours: Microbiology 10/01/22 13:45 Foot,Right Bone Culture - Preliminary 10/01/22 13:40 Ankle,Right Gram Stain - Final 10/01/22 13:40 Ankle,Right Wound Culture - Final NO GROWTH AFTER 5 DAYS 10/01/22 13:52 Foot,Right Bone Culture - Final Proteus vulgaris/penneri Enterococcus species Findings:: Right lower extremity stump: Dressing intact. Assessment and Plan *Assessment and plan (1) Status post below knee amputation of right lower extremity: Status: Acute Category: Surgical Code(s): Z89.511 - Acquired absence of right leg below knee Plan Reviewed bone cultures. Would be okay to convert to p.o. antibiotics with Levaquin based on sensitivities. We will do this for a 2-week course. She has reportedly been accepted to rehabilitation facility which will be necessary for her recovery. She will return to the Ortho clinic in 2 weeks after discharge for staple removal daily dressing changes at rehab. Avoid direct pressure on the stump. Rehab to focus on terminal extension of the knee. Dressing change today.
[2022-10-08 11:03] VITALS: BP 158/79; PULSE 83; RESP 18; TEMP 37.2; O2SAT 98
[2022-10-08 12:00] LABS: POC Glucose,Bedside 170 (70-110)
--- NOTE | 2022-10-08 12:36 | EXP.PN ---
Subjective *Date: 10/08/22 *Time: 12:36 Interval history: No acute events overnight. Exam Data for Last 24 hours Vital signs and Labs for Last 24 Hours: Temp Pulse Resp BP Pulse Ox O2 Del Method O2 Flow Rate 99.0 F 83 18 158/79 H 98 Room Air 2 10/08/22 11:03 10/08/22 11:03 10/08/22 11:03 10/08/22 11:03 10/08/22 11:03 10/08/22 11:03 10/04/22 22:30 Laboratory Results - last 24 hr 10/07/22 16:28: POC Glucose 204 H 10/07/22 20:23: POC Glucose 136 H 10/08/22 05:44: POC Glucose 176 H 10/08/22 06:12: WBC 12.1 H, RBC 3.03 L, Hgb 7.9 L, Hct 25.5 L, MCV 84.1, MCH 25.9 L, MCHC 30.8 L, RDW 16.5, Plt Count 554 H, MPV 8.7, Neut % (Auto) 75.3, Lymph % (Auto) 15.6, [place] % (Auto) 5.5, Eos % (Auto) 3.4, Baso % (Auto) 0.3, Neut # (Auto) 9.1 H, Lymph # (Auto) 1.9, [place] # (Auto) 0.7, Eos # (Auto) 0.4, Baso # (Auto) 0.0, Sodium 138, Potassium 3.7, Chloride 104, Carbon Dioxide 29, Anion Gap 8.7, BUN 15, Creatinine 1.00, Estimated Creat Clear 64, Estimated GFR 59, Est GFR ( Amer) 72, Glucose 168 H, Calcium 8.2 L, Total Bilirubin 0.2, AST 39 H D, ALT 27, Alkaline Phosphatase 76, Total Protein 6.7, Albumin 3.1 L, Globulin 3.6 H, Albumin/Globulin Ratio 0.9 L 10/08/22 11:52: POC Glucose 170 H I & O for Last 24 hours: Intake & Output 10/05/22 10/06/22 10/07/22 10/08/22 23:59 23:59 23:59 23:59 Intake Total 1629 / 2141 2098 / 2098 2990 / 2990 480 / 480 Output Total 200 / 200 2150 / 2150 1550 / 1550 850 / 850 Balance 1429 / 1941 -52 / -52 1440 / 1440 -370 / -370 Weight 142.116 kg 144.781 kg 142.088 kg 142.428 kg Microbiology Reports for the Last 24 Hours: Microbiology 10/01/22 13:45 Foot,Right Bone Culture - Preliminary 10/01/22 13:40 Ankle,Right Gram Stain - Final 10/01/22 13:40 Ankle,Right Wound Culture - Final NO GROWTH AFTER 5 DAYS 10/01/22 13:52 Foot,Right Bone Culture - Final Proteus vulgaris/penneri Enterococcus species Constitutional Constitutional: no acute distress *Routine HEENT Exam Head: Present normocephalic Eye: Present EOMI and PERRL ENT: Present mucous membranes moist *Routine Neck Exam Neck: Present supple; Absent lymphadenopathy *Routine Respiratory Exam Respiratory: Present CTA bilaterally *Routine Cardiovascular Exam Cardiovascular: Present RRR *Routine Abdominal Exam Abdominal: Present soft and normoactive bowel sounds; Absent tenderness *Routine Extremities Exam Extremities: Present edema (bilateral lower extremities); Absent cyanosis or clubbing Comments: R BKA, opal wrap c/d/i. *Routine Skin Exam Skin: Present warm; Absent rash *Routine Neurological Exam Neurological: Present alert and oriented X3 Assessment and Plan *Assessment and plan (1) Sepsis: Status: Acute Qualifiers: Sepsis type: sepsis due to unspecified organism Sepsis acute organ dysfunction status: without acute organ dysfunction Qualified Code(s): A41.9 - Sepsis, unspecified organism Category: Medical Code(s): A41.9 - Sepsis, unspecified organism (2) Diabetic ulcer of foot with necrosis of muscle: Status: Acute Qualifiers: Diabetic foot ulcer location: heel Diabetes mellitus type: type 2 Laterality: right Qualified Code(s): E11.621 - Type 2 diabetes mellitus with foot ulcer; L97.413 - Non-pressure chronic ulcer of right heel and midfoot with necrosis of muscle Category: Medical Code(s): E11.621 - Type 2 diabetes mellitus with foot ulcer; L97.503 - Non-pressure chronic ulcer of other part of unspecified foot with necrosis of muscle (3) Diabetes mellitus: Status: Chronic Qualifiers: Diabetes mellitus type: type 2 Diabetes mellitus skilled nursing insulin use: unspecified skilled nursing insulin use status Diabetes mellitus complication status: with other specified complication Qualified Code(s): E11.69 - Type 2 diabetes mellitus with other
[2022-10-08 15:13] VITALS: BP 159/71; PULSE 76; RESP 18; TEMP 37.1; O2SAT 98
[2022-10-08 17:02] LABS: POC Glucose,Bedside 115 (70-110)
[2022-10-08 19:51] VITALS: BP 163/84; PULSE 86; RESP 16; TEMP 36.6; O2SAT 99
[2022-10-08 20:06] LABS: POC Glucose,Bedside 179 (70-110)
--- NOTE | 2022-10-08 22:53 | PC.NURSE ---
Pt rotated on to Left hip with pillows, encouraged to stay off coccyx
[2022-10-09] VITALS: BP 133/71; PULSE 73; RESP 16; TEMP 36.6; O2SAT 95
[2022-10-09 04:00] VITALS: BP 160/89; PULSE 78; RESP 16; TEMP 36.6; O2SAT 100; BMI 48.8
--- NOTE | 2022-10-09 04:09 | PC.NURSE ---
Patient has rested some tonight. Has requested IV pain medication, See MAR. Has had 2 BM, both time patient was cleaned up, with sheets changed, and dressing on coccyx changed. no issues were stated by patient or family
[2022-10-09 06:20] LABS: Basophils % 0.4 % (0.1-2.0); Eosinophils # 0.4 K/mm3 (0.0-0.4); Eosinophils % 3.3 % (0.1-12.0); Hematocrit 25.4 % (37.0-47.0); Lymphocytes # 1.5 K/mm3 (0.7-4.5); Lymphocytes % 12.8 % (10-50); Mean Corpuscular HGB Conc 31.6 g/dL (31.8-35.4); Mean Corpuscular Hemoglobin 26.3 pg (27.0-31.2); Mean Corpuscular Volume 83.2 fl (81-99); Mean Platelet Volume 8.3 fl (7.4-10.4); Monocytes # 0.5 K/mm3 (0.1-1.0); Monocytes % 4.5 % (1.7-9.3); Neutrophils # 9.4 K/mm3 (1.8-7.8); Neutrophils % 79.1 % (37.0-80.0); Platelet Count 577 K/mm3 (142-424); Red Blood Count 3.05 M/mm3 (4.20-5.40); Red Cell Distribution Width 16.5 % (11.5-17.5); White Blood Count 11.9 K/mm3 (4.8-10.8)
[2022-10-09 06:31] LABS: Anion Gap 8.4 mEq/L (5-15); Blood Urea Nitrogen 14 mg/dl (7-17); Calcium 8.3 mg/dl (8.4-10.2); Carbon Dioxide 31 mmol/L (22.0-30.0); Chloride 103 mmol/L (98-107); Creatinine Clearance Estimated 81 mL/min (50-200); Estimated Glomerular Filt Rate 77 ml/min (>60); GFR (African American) 93 ML/MIN (>60); Glucose 146 mg/dl (74-100); Potassium 3.4 mmoL/L (3.5-5.1); Sodium 139 mmol/L (136-145)
[2022-10-09 07:24] VITALS: BP 152/90; PULSE 79; RESP 16; TEMP 36.6; O2SAT 98
[2022-10-09 08:00] VITALS: O2SAT 98
[2022-10-09 11:01] VITALS: BP 141/78; PULSE 80; RESP 18; TEMP 36.9; O2SAT 100
--- NOTE | 2022-10-09 11:39 | EXP.DC.SUM ---
General Admission date:: 09/30/22 Discharge date: 10/09/22 HPI HPI HPI: Mrs. Maldonado is a 47-year-old female with history significant for insulin-dependent diabetes, morbid obesity, hypertension, hyperlipidemia, neuropathy. She presented to the ER with her due to swelling in her right leg, redness, and finding of maggots in her wound when he unwrapped her bandage today. She complains of feeling feverish and chills the past few days. Decreased appetite but no kye vomiting. Shortness of breath at baseline. No chest pain or confusion. Recently had an abscess debrided in her right axilla approximately 1 month ago. Her at bedside helps give history. States she has been having a wound on her foot that was a blister last Saturday. He wrapped it and when he was changing the bandage today noticed maggots in the dressing. He brought her to the ER for evaluation. States the wound was not black last Saturday. On evaluation, patient found to be tachycardic, febrile, have a leukocytosis. Has a malodorous necrotic wound of her right heel. Medicine consulted for further management. Received IV antibiotics and fluid bolus in the ER. On evaluation, noticeable odor prior to examining the patient. Is cooperative and able to give history. Denies significant pain with foot. States she has difficulty feeling her feet and her hands. Is unable to care for herself. Does not recall the wound last week looking as bad as it does now. Denies any significant bleeding. Podiatry consult: Diabetic with right foot Gangrene infection. states skin changes started last week. Noticed some blistering with some black discoloration Saturday and progressively worsened over the weekend. Maggots in the wound yesterday. Into the ER and was admitted for IV antibiotics and surgical debridement. 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 Discussed doing ABIs to evaluate flow. Patient was reluctant to do so she does not want to lay flat. Has compromised and said she will do it after surgery today. Hospital Course Hospital Course Hospital Course: Ms. Maldonado is a 47 year old female with a past medical history of morbid obesity, uncontrolled type 2 diabetes mellitus, diastolic CHF, hypertension, atrial fibrillation and a recent staph infection of the right axilla. She was admitted on 09/30 with a necrotic wound of her R heel. 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 The patient received broad spectrum antibiotics throughout the hospital course; first with vanc/zosyn, then vanc/zyvox, then cefepime alone. Bone culture of the right foot grew enterococcus species in addition to proteus/vulgaris/penneri. She will need to take 9 days of amoxicillin and levofloxacin to complete a 14 day course of antibiotics after her BKA for cellulitis of the R stump. She will return to the Ortho clinic in 2 weeks after discharge for staple removal daily dressing changes at rehab. Avoid direct pressure on the stump. Rehab to focus on terminal extension of the knee. She will be discharging to [facility] Exam Data for Last 24 hours Vital signs and Labs for Last 24 Hours: Temp Pulse Resp BP Pulse Ox O2 Del Method O2 Flow Rate 98.4 F 80 18 141/78 H 100 Room Air 2 10/09/22 11:01 10/09/22 11:01 10/09/22 11:01 10/09/22 11:01 10/09/22 11:01 10/09/22 11:01 10/04/22 22:30 Laboratory Results - last 24 hr 10/08/22 11:52: POC Glucose 170 H 10/08/22 16:49: POC Glucose 115 H 10/08/22 19:58: POC Glucose 179 H 10/09/22 05:55: WBC 11.9 H, RBC 3.05 L, Hgb 8.0 L, Hct 25.4 L, MCV 83.2, MCH 26.3 L, MCHC 31.6 L, RDW 16.5, Plt Count 577 H, MPV 8.3, Neut % (Auto) 79.1, Lymph % (Auto) 12.8, [place] % (Auto) 4.5, Eos % (Auto) 3.3, Baso % (Auto) 0.4, Neut # (Auto) 9.4 H, Lymph # (Auto) 1.5, [place] # (Auto) 0.5, Eo
[2022-10-10 01:54] LABS: POC Glucose,Bedside 151 (70-110)
== END 2022-10-09 13:34 | DRG 853 ==
LOC: ER 15:08 → 2ND 17:48
PROVIDERS: Internal Medicine; Orthopaedic Surgery; Podiatrist; Admitting Provider Internal Medicine Adolescent Medicine; Emergency Provider Emergency Medicine; PCP Family Medicine; Visit Provider Internal Medicine Adolescent Medicine
PROC: 0QBL0ZX Excision of Right Tarsal, Open Approach, Diagnostic (ICD-10-PCS; principal; 2022-10-01 12:15)
PROC: (CPT 27880; principal; 2022-10-04 15:15)
DX: A41.9 Sepsis, unspecified organism (principal); A48.0 Gas gangrene; I50.33 Acute on chronic diastolic (congestive) heart failure; Z68.42 Body mass index [BMI] 45.0-49.9, adult; E11.52 Type 2 diabetes mellitus with diabetic peripheral angiopathy with gangrene; E11.621 Type 2 diabetes mellitus with foot ulcer; Z79.4 Long term (current) use of insulin; E66.01 Morbid (severe) obesity due to excess calories; E78.00 Pure hypercholesterolemia, unspecified; M79.7 Fibromyalgia; K21.9 Gastro-esophageal reflux disease without esophagitis; Z89.422 Acquired absence of other left toe(s); G40.909 Epilepsy, unspecified, not intractable, without status epilepticus; E11.42 Type 2 diabetes mellitus with diabetic polyneuropathy; I11.0 Hypertensive heart disease with heart failure; I48.0 Paroxysmal atrial fibrillation; G47.33 Obstructive sleep apnea (adult) (pediatric); E11.21 Type 2 diabetes mellitus with diabetic nephropathy; E11.65 Type 2 diabetes mellitus with hyperglycemia
CPT/HCPCS: 20240; 11044; 27882; 36415; 73630; 73700; 80048; 80053; 82962; 83036; 83605; 83735; 83880; 84145; 84443; 85007; 85025; 85651; 86140; 87040; 87070; 87077; 87186; 87205; 87636; 88304; 88305; 88307; 88311; 93005; 93306; 93923; 97110; 97163; 97166; 97530; 99285; J0131; J2020; J2405; J2543

== ENCOUNTER 2022-11-29 16:42 | Emergency (ER) | payer MEDICAID, SELFPAY ==
[2022-11-29 17:40] VITALS: BP 176/74; PULSE 83; O2SAT 96
[2022-11-29 17:41] VITALS: BP 185/76; PULSE 86; RESP 16; TEMP 37; O2SAT 95; BMI 47.0
--- NOTE | 2022-11-29 17:54 | XR_ITS ---
PROCEDURE INFORMATION: Exam: XR Left Foot Exam date and time: 11/29/2022 6:04 PM Age: 47 years old Clinical indication: Other: Discoloration; Prior surgery; Surgery date: 6+ months; Surgery type: Toe amputation; Additional info: 3rd and 4th toes injury TECHNIQUE: Imaging protocol: Radiologic exam of the left foot. Views: 3 or more views. COMPARISON: CR XR FOOT WT BEAR[place] LT 3V 05/26/2021 6:23 PM FINDINGS: Bones/joints: Amputation 5th toe at the level of the mid shaft of the metatarsal unchanged. Osteopenia. Soft tissues: Normal. IMPRESSION: No evidence of acute osseous injury.
--- NOTE | 2022-11-29 17:56 | HMH.EDGENADL ---
Discharge Plan Disposition Patient Disposition: Home, Self-Care Chief Complaint: Skin/Abscess/Foreign Body Prescriptions Prescriptions: No Action apixaban 5 mg tablet 5 mg PO BID 30 Days Qty: 60 10RF (DME) Dexcom G6 Sensor Device See Rx Instructions .ROUTE .COMPLEX Qty: 3 2RF Rx Instructions: USE DIRECTED. gabapentin 300 mg capsule 300 mg PO TID Qty: 90 5RF hydroxyzine HCl 25 mg tablet 25 mg PO Q6H PRN (Reason: anxiety) Qty: 60 5RF insulin glargine [Lantus Solostar U-100 Insulin] 100 unit/mL (3 mL) insulin pen 80 unit SQ BID Qty: 15 5RF hydrocodone-acetaminophen 7.5-325 mg tablet 1 tab PO Q6H PRN (Reason: Severe Pain (7-10)) Qty: 60 0RF Rx Instructions: 1 tablet q6h prn levofloxacin 750 mg tablet 750 mg PO DAILY Qty: 10 0RF Rx Instructions: take 1 tablet once a day atorvastatin 20 mg tablet 20 mg PO HS spironolactone 50 mg tablet 50 mg PO BID Vraylar 3 mg capsule 3 mg PO DAILY diltiazem HCl 30 mg tablet 30 mg PO BID torsemide 20 mg tablet 40 mg PO DAILY insulin aspart U-100 100 unit/mL (3 mL) insulin pen 0 unit SQ DIRECTED PRN (Reason: Diabetes) Rx Instructions: 20 to 40 units as needed when Novolin does not bring her to goal Trulicity 4.5 mg/0.5 mL pen injector 4.5 mg SQ WEEKLY insulin lispro [Humalog U-100 Insulin] 100 unit/mL Solution 8 unit SQ AC Qty: 9999 0RF amoxicillin 500 mg Capsule 500 mg PO TID Qty: 0 0RF Rx Instructions: take one tablet three times daily x 9 days lisinopril 2.5 mg Tablet 2.5 mg PO DAILY Qty: 9999 0RF Referrals Follow up/Referrals: Carlos Dean MD [Primary Care Provider] - See instructions Clinical Impressions Clinical Impression: Discoloration of skin of toe Instructions Patient Instructions: DI for Skin Abscess Discharge ED Provider: Mac [facility] Adult HPI General Chief complaint: Skin/Abscess/Foreign Body Stated complaint: left foot 2 toew disclored Time Seen by Provider: 11/29/22 17:34 Mode of Arrival: Wheelchair Source of Information: Patient and Spouse Limitations: Physical Limitations Description of Symptoms (Recalled from ER Triage Doc. by RN): 47 yo F presents to ED with c/o discoloration to left foot, second and third toe. pts reports that toes only have been discolored for 2 days. pt does have right bka. pt is diabetic. on blood thinners for afib hx History of Present Illness HPI narrative: Is a 47-year-old female with history of hypertension, hyperlipidemia, untreated diabetes, A-fib on Eliquis, necrotizing soft tissue infection right lower extremity necessitating amputation presenting with left lower extremity concern. Patient states that she noticed she has 2 black spots on her toes today. Does not member injuring them. Denies fevers, chills, red streaking up her leg, or any other concerns. Just wanted to get them checked out. Related Data Home Medications Medication Instructions Recorded Confirmed atorvastatin 20 mg tablet 20 mg PO HS Cholesterol 07/23/22 11/06/22 cariprazine 3 mg capsule (Vraylar) 3 mg PO DAILY mood 07/23/22 11/06/22 spironolactone 50 mg tablet 50 mg PO BID Fluid 07/23/22 11/06/22 diltiazem HCl 30 mg tablet 30 mg PO BID high blood 10/01/22 11/06/22 pressure/heart rate dulaglutide 4.5 mg/0.5 mL 4.5 mg SQ WEEKLY Diabetes 10/01/22 11/06/22 subcutaneous pen injector (Trulicity) insulin aspart U-100 100 unit/mL 0 unit SQ DIRECTED PRN Diabetes 10/01/22 11/06/22 (3 mL) subcutaneous pen torsemide 20 mg tablet 40 mg PO DAILY diuretic 10/01/22 11/06/22 Previous Rx's Medication Instructions Recorded apixaban 5 mg tablet 5 mg PO BID atrial fibrillation 30 09/07/22 days #60 tabs amoxicillin 500 mg capsule 500 mg PO TID #0 caps 10/09/22 insulin lispro 100 unit/mL 8 unit (0.08 mL) SQ AC #9,999 mL 10/09/22 subcutaneous solution (Humalog U-100 Insulin) lisinopril 2.
[2022-11-29 18:01] VITALS: BP 183/69; PULSE 80; O2SAT 95
[2022-11-29 18:31] VITALS: BP 198/75; PULSE 88; O2SAT 96
[2022-11-29 19:00] VITALS: BP 185/75; PULSE 88; RESP 19; TEMP 37; O2SAT 95
== END 2022-11-29 19:01 | disposition home or self-care (01) ==
PROVIDERS: Emergency Provider Emergency Medicine; PCP Family Medicine
DX: R23.8 Other skin changes (principal); E11.9 Type 2 diabetes mellitus without complications; I48.91 Unspecified atrial fibrillation; I10 Essential (primary) hypertension; E78.5 Hyperlipidemia, unspecified; Z79.01 Long term (current) use of anticoagulants; Z89.511 Acquired absence of right leg below knee
CPT/HCPCS: 73630; 99283

== ENCOUNTER → 2022-12-31 10:26 | Outpatient (CLI) | payer MEDICAID, SELFPAY | PROVIDERS: PCP Family Medicine; Visit Provider Family Medicine | DX: R92.8 Other abnormal and inconclusive findings on diagnostic imaging of breast (principal) ==

== ENCOUNTER → 2022-12-31 11:00 | Outpatient (CLI) | payer MEDICAID, SELFPAY ==
[2022-12-31 19:58] LABS: Alanine Aminotransferase 19 U/L (12-78); Albumin Level 3.7 g/dl (3.5-5.0); Albumin/Globulin Ratio 1.1 (1.1-1.8); Alkaline Phosphatase 87 U/L (38-126); Anion Gap 9.8 mEq/L (5-15); Aspartate Amino Transferase 26 U/L (14-36); Bilirubin,Total 1.2 mg/dl (0.2-1.3); Blood Urea Nitrogen 10 mg/dl (7-17); Calcium 8.9 mg/dl (8.4-10.2); Carbon Dioxide 29 mmol/L (22.0-30.0); Chloride 106 mmol/L (98-107); Estimated Glomerular Filt Rate 89 ml/min (>60); GFR (African American) 108 ML/MIN (>60); Globulin 3.5 g/dL (1.3-3.2); Glucose 187 mg/dl (74-100); Potassium 3.8 mmoL/L (3.5-5.1); Sodium 141 mmol/L (136-145); Total Protein,Serum 7.2 g/dl (6.3-8.2)
[2022-12-31 20:20] LABS: Hemoglobin A1C 7.5 % (4.0-6.0)
[2022-12-31 20:23] LABS: Thyroid Stimulating Hormone 1.57 uIU/mL (0.465-4.68)
== END ==
PROVIDERS: PCP Family Medicine; Visit Provider Family Medicine
DX: E11.9 Type 2 diabetes mellitus without complications (principal); Z79.4 Long term (current) use of insulin
CPT/HCPCS: 80053; 83036; 84443

== ENCOUNTER 2023-06-03 18:31 | Outpatient (CLI) | payer MEDICAID, SELFPAY ==
[2023-06-03 18:37] LABS: Alanine Aminotransferase 32 U/L (12-78); Albumin/Globulin Ratio 1.2 (1.1-1.8); Alkaline Phosphatase 90 U/L (38-126); Anion Gap 10.8 mEq/L (5-15); Aspartate Amino Transferase 38 U/L (14-36); Bilirubin,Total 0.7 mg/dl (0.2-1.3); Blood Urea Nitrogen 16 mg/dl (7-17); Calcium 9.3 mg/dl (8.4-10.2); Carbon Dioxide 31 mmol/L (22.0-30.0); Chloride 101 mmol/L (98-107); Estimated Glomerular Filt Rate 67 ml/min (>60); GFR (African American) 81 ML/MIN (>60); Globulin 3.3 g/dL (1.3-3.2); Glucose 176 mg/dl (74-100); Potassium 3.8 mmoL/L (3.5-5.1); Sodium 139 mmol/L (136-145); Total Protein,Serum 7.3 g/dl (6.3-8.2)
[2023-06-03 18:51] LABS: Hemoglobin A1C 7.6 % (4.0-6.0)
[2023-06-03 19:07] LABS: Thyroid Stimulating Hormone 1.24 uIU/mL (0.465-4.68)
== END 2023-06-03 23:59 ==
LOC: LAB.DROPOF 18:32
PROVIDERS: PCP Family Medicine; Visit Provider Family Medicine
DX: E11.69 Type 2 diabetes mellitus with other specified complication (principal); E78.2 Mixed hyperlipidemia; Z79.4 Long term (current) use of insulin; Z79.85 Long-term (current) use of injectable non-insulin antidiabetic drugs
CPT/HCPCS: 80053; 83036; 84443

== ENCOUNTER 2023-07-03 18:00 | Outpatient (CLI) | payer MEDICAID, SELFPAY ==
[2023-07-03 18:48] LABS: Alanine Aminotransferase 36 U/L (12-78); Albumin Level 3.9 g/dl (3.5-5.0); Albumin/Globulin Ratio 1.2 (1.1-1.8); Alkaline Phosphatase 90 U/L (38-126); Anion Gap 11.6 mEq/L (5-15); Aspartate Amino Transferase 40 U/L (14-36); Bilirubin,Total 0.9 mg/dl (0.2-1.3); Blood Urea Nitrogen 14 mg/dl (7-17); Calcium 9.4 mg/dl (8.4-10.2); Carbon Dioxide 30 mmol/L (22.0-30.0); Chloride 102 mmol/L (98-107); Estimated Glomerular Filt Rate 76 ml/min (>60); GFR (African American) 92 ML/MIN (>60); Globulin 3.2 g/dL (1.3-3.2); Glucose 274 mg/dl (74-100); Potassium 3.6 mmoL/L (3.5-5.1); Sodium 140 mmol/L (136-145); Total Protein,Serum 7.1 g/dl (6.3-8.2)
[2023-07-03 19:47] LABS: Hemoglobin A1C 7.8 % (4.0-6.0)
== END 2023-07-03 23:59 | disposition home or self-care (01) ==
LOC: LAB.DROPOF 07-04 18:41
PROVIDERS: PCP Family Medicine; Visit Provider Family Medicine
DX: E11.69 Type 2 diabetes mellitus with other specified complication (principal); I10 Essential (primary) hypertension; Z79.4 Long term (current) use of insulin; Z79.85 Long-term (current) use of injectable non-insulin antidiabetic drugs; Z87.891 Personal history of nicotine dependence
CPT/HCPCS: 80053; 83036

== ENCOUNTER 2023-07-25 13:00 | Outpatient (CLI) | payer MEDICAID, SELFPAY ==
--- NOTE | 2023-07-25 13:01 | MM_ITS ---
PROCEDURE INFORMATION: Exam: MG Bilateral Diagnostic Breast Tomosynthesis Exam date and time: 07/25/2023 12:47 PM Age: 48 years old Clinical indication: Bilateral breast pain; Additional info: Under arm pain TECHNIQUE: Imaging protocol: Bilateral Diagnostic tomosynthesis and 2D mammography including computer-aided detection (CAD) when performed. Unilateral or bilateral exam. COMPARISON: 1. MG MM DIG SCREENING MAMM BI W/CAD 07/30/2022 10:56 AM 2. MG MM DIG SCREENING MAMM BI W/CAD 07/24/2021 1:03 PM FINDINGS: MAMMOGRAPHY: Breast composition: The breasts are almost entirely fatty. Breast mammogram findings: There is no stellate mass, architectural distortion or suspicious microcalcifications in either breast to suggest malignancy. 1.0 cm well-circumscribed mass partially visualized in the far posterior right medial breast only in the craniocaudal projection. No skin thickening or axillary adenopathy. IMPRESSION: Patient to return for spot compression view of the right breast in the medial exaggerated craniocaudal view, . 90 degree lateral view of the right breast and bilateral breast ultrasound for further evaluation right breast mass as well as bilateral breast pain ASSESSMENT: BI-RADS Category 0: Incomplete- Need Additional Imaging Evaluation and/or Prior Mammograms for Comparison.
== END 2023-07-25 23:59 | disposition home or self-care (01) ==
LOC: RAD 13:01
PROVIDERS: PCP Family Medicine; Visit Provider Family Medicine
DX: L98.8 Other specified disorders of the skin and subcutaneous tissue (principal); N64.4 Mastodynia
CPT/HCPCS: 77062; 77066; G0279

== ENCOUNTER 2023-07-29 14:00 | Outpatient (RCR) | payer MEDICAID, SELFPAY ==
--- NOTE | 2023-07-01 15:56 | HMH.PTOPEV ---
PT Outpatient Evaluation Rehab PT Outpatient Evaluation Start: 07/01/23 13:46 Freq: Status: Active Protocol: Document 07/01/23 13:46 GENIE (Rec: 07/01/23 15:50 GENIE [id number]) E-signed By Eda Nixon, PT Outpatient Therapy Subjective History Subjective History This is an initial evaluation for Eliz Sewell who presents as a R BKA (10/05/23) with a prosthesis. Pt presents to PT for generalized weakness. Pt uses a power w/c for primary household and community mobility d/t impaired strength and balance deficits. Pt reports she recieved rehab at [facility] and has since done HH PT. Pt reports she ambulates with HH (up to 70' using RW) but does not do much ambulating at home on her own . Pt performs slide board transfers when not using prosthetic. Pt's cares for her and provides physical assistance as needed. Pt denies having any falls since amputation. Pt reports she is limited by fatigue and L knee pain when ambulating. Pt's goal for PT is to to be able to get up and walk without having to rely on somebody . PMH: Seizure disorder, Fibromyalgia, Cellulitis, Pancreatitis, GERD, High blood pressure, High cholesterol, Afib, Mood disorder, CHF, Diabetes New diagnosis of cancer in past 12 No months? Balance Eval Hx of Falls Hx Falls No Number in last 6 months 0 Gait/Posture Asssessment General Gait Observation Wide Based Gait,Decrease Stride Lngth (L) Level of Transfer Assist Standby Assistance,Assistance x1 Hip Observation in Gait Swing Circumducted Hip Observation in Gait Stance Excess Flexion Timed Up and Go Test 1. Is the Timed Up and Go test result > yes or = to 12 seconds? Rhomberg Feet Together/Eyes open/Stable Surface fail Feet Together/Eyes Closed/Stable Surface fail Feet Together/Eyes open/Unstable Surface fail Feet Together/Eyes Closed/Unstable fail Surface Miscellaneous Dx PT Eval Objective Objective Gait: - RW with CGA. - RLE: decreased heel strike, decreased stance time, circumduction with 50% of gait . GG/Functional mobility scores with prosthetic: - Bed mobility: IND- SUP - Transfers: Partial A with RW and prosthetic. SUP with slideboard - W/c mobility: IND in powerchair - Sit>Stand: Partial A with RW - Ambulation: 35' x 2 CGA with w/c follow and RW Funtional balance scale: Dynamic standing balance = fair Aakash/Doff prosthesis: Mod A from Miscellaneous Goals Short Term Goals In 4 weeks... 1) Pt will ambulate 100' without sitting rest break using RW and CGA. 2) Pt will demonstrate proper heel strike with VCs throughout 75% of gait tasks. 3) Pt will perform 10 consecutive STS transitions with CGA and RW 4) Pt will tolerate 10 minutes of cardiovasular endurance activities to improve overall endurance. 5) Aakash/doff prosthesis with Min A Swimming Pool Maintenance Goals In 8 weeks... 1) Pt will ambulate 200' without sitting rest break using RW with SUP to improve community ambulation. 2) Pt will demo good stride length and even stance time throughout 90% of gait tasks using LRAD. 3) Pt will perform TUG test in <12 sec to decrease fall risk . 4) Pt will perform STS transitions with independence and RW. 5) Aakash/doff prosthesis with independence. Outpatient Therapy Assessment Impairments Problems/Impairmments Impaired Strength,Impaired Transfers,Impaired Gait Pattern,Impaired Walking, Impaired Standing,Impaired Stair Climbing,Impaired Stepping on Uneven Surface, Impaired Squatting,Impaired Recreational Activities, Impaired Balance,Impaired TUG Time,Impaired Self Care/Self Management Prognosis Rehab Potential Good Clinical Impression Consistent with Diagnosis Yes Consistent with BKA, generalized weakness Outpatient Therapy Plan of Care Treatment Plan May Include Therapeutic Exercise Including Home Yes Exercise Program Neuromuscular Re-education Yes Therapeutic Activities to Return to Yes Previous Functional/Work Level Gait Training Yes ADL/Self Care Education Yes Orthotics/Bracing/Splinting Yes Eval/Re-Eval Yes Frequency Times per week 1-2 times Duration Number of Weeks 6-8 weeks Addendums This patient is a candidate for social No or vocational rehab? Patient/Guardian verbally acknowledges Yes understanding of treatment program and consents to further treatment? Patient/Guardian verbally acknowledges Yes understanding of diagnosis, prognosis and goals for treatment? Eval Complexity PT Charges 01653 - High Complexity Shoulder/Elbow Eval Shoulder Objective Measurements Elbow Objective Measurements PHYSICIAN CERTIFICATION: I certify the specified therapy services for Eliz Pack Stien are required, authorized, and reviewed every 30 days.
--- NOTE | 2023-07-29 15:25 | HMH.RHREAS ---
Rehab Reassessment Rehab OP Re-assessment Start: 07/01/23 13:46 Freq: Status: Active Protocol: Document 07/29/23 15:05 GENIE (Rec: 07/29/23 15:22 GENIE [email or web address]) E-signed By Eda Nixon PT Lower Extremity Functional Index Activities Today, do you or would you have any difficulty at all with: a.Any of your usual work, housework or Quite a bit of difficulty school activities b. Your usual hobbies, recreational or Quite a bit of difficulty sporting activities c. Getting into or out of the bath Quite a bit of difficulty d. Walking between rooms Quite a bit of difficulty e. Putting on your shoes or socks A little bit of difficulty f. Squatting Extreme difficulty or unable to perform activity g. Lifting an object, like a bag of Moderate difficulty groceries from the floor h. Performing light activities around Moderate difficulty your home i. Performing heavy activities around Moderate difficulty your home j. Getting into or out of a car A little bit of difficulty k. Walking 2 blocks Extreme difficulty or unable to perform activity l. Walking a mile Extreme difficulty or unable to perform activity m. Going up or down 10 stairs (about 1 Extreme difficulty or unable flight of stairs) to perform activity n. Standing for 1 hour Extreme difficulty or unable to perform activity o. Sitting for 1 hour A little bit of difficulty p. Running on even ground Extreme difficulty or unable to perform activity q. Running on uneven ground Extreme difficulty or unable to perform activity r. Making sharp turns while running fast Extreme difficulty or unable to perform activity s. Hopping Extreme difficulty or unable to perform activity t. Rolling over in bed A little bit of difficulty LEFI Score Lower Extremity Functional Index Score 22 Rehab Re-assessment Subjective Subjective Pt reports she is still limited by L knee pain. Pt reports some adherence to HEP. Objective Objective Notes Gait: Unable to assess this date d/t knee pain and fatigue . Rhomberg: Fail each section TUG: unable/>12 Funtional balance scale: Dynamic standing balance = fair Aakash/Doff prosthesis: Mod A from LEFS: Assessment Progress Assessment Slower Than Expected Assessment Notes This is a reassessment for Eliz Maldonado who presents to PT s/p R BKA with prosthesis. Since IE, pt has been seen for 2 treatment sessions that have consisted of NMR, gait training, education, and therapeutic exercises focusing on improving strength, endurance, and independence with mobility. Pt with good attendance to scheduled PT visits and reports some adherence to HEP. Since IE, pt with improvements in transfer technique. Pt still presents with original impairments. Pt' s progress limited by limited number of scheduled sessions so far. Pt would continue to benefit from skilled outpatient physical therapy to address remaining deficits. Patient goals met STGs: 1) Pt will ambulate 100' without sitting rest break using RW and CGA: NOT MET 2) Pt will demonstrate proper heel strike with VCs throughout 75% of gait tasks: NOT MET 3) Pt will perform 10 consecutive STS transitions with CGA and RW: IN PROGRESS 4) Pt will tolerate 10 minutes of cardiovasular endurance activities to improve overall endurance: MET 5) Aakash/doff prosthesis with Min A: NOT MET ST/5 MET LTG: In progress Revised Goals Revise gait endurance goals. 1) Pt will ambulate 45'(STG), 75' (LTG) without sitting rest break using RW and CGA. Plan Plan Continue POC Frequency of Therapy 2x Duration of therapy 8 weeks Time and Billing Re-Eval Time 10 Re-Eval Billing Units 1 PHYSICIAN CERTIFICATION: I certify the specified therapy services for Eliz Maldonado are required, authorized, and reviewed every 30 days.
== END 2023-07-29 15:20 | disposition home or self-care (01) ==
LOC: PT 14:00
PROVIDERS: Visit Provider Family Medicine
DX: M79.604 Pain in right leg (principal); R53.1 Weakness; Z89.511 Acquired absence of right leg below knee
CPT/HCPCS: 97110; 97112; 97116; 97163; 97164

== ENCOUNTER 2023-07-29 14:59 | Outpatient (RCR) | payer MEDICAID, SELFPAY ==
--- NOTE | 2023-07-29 16:04 | HMH.OTOPEV ---
OT Inpatient Evaluation Rehab OT Outpatient Eval Start: 07/29/23 15:31 Freq: Status: Active Protocol: Document 07/29/23 15:32 RMARSHALL (Rec: 07/29/23 16:04 [facility] [id number]) E-signed By Brandon Jasso, OT Outpatient Therapy Subjective History Subjective History Pt is a 48 year old female who reports to therapy for initial evaluation of bilateral UE generalized weakness. 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 Pt was at [facility] for ~2 weeks after amputation and was then sent to [facility] for short term rehab. After discharge from there she returned home with home health therapy services. Recently, she has been transferring more and requiring increased use of bilateral UE's during transfers and ambulation with walker. With increased UE use , she has been experiencing pain/weakness in both arms. Pt also complains of increased fatigue in bilateral UE's and some numbness in her hands at times after she uses her walker. Pt demonstrates with normal AROM at all joints bilaterally, but she does have some weakness. Pt is right hand dominant and demonstrates with significant decrease in strength in bilateral sound cutter. Pt will continue to be seen twice a week in order to address her decreased endurance and strength in bilateral UE's to improve overall independence in daily activities and transfers. At this time, the most the patient has been able to transfer is ~70 feet with rolling walker and min assist. Pt can complete sit to stand from wheelchair with min assist. Pt reports at times she still uses sliding board when she is transferring to and from different surfaces ( bsc, car, shower chair, etc). normally provides min assist to complete bed mobility as well. She has had a prosthesis since April 2023. STG: Pt will be able to complete a sit to stand, step pivot from wheelchair to another surface using rolling walker and minimal assistance ~75% of the time to increase functional mobility. Pt will increase R hand sound cutter strength to 30 lbs. Pt will increase L hand sound cutter strength to 25 lbs Pt will be able to complete a functional mobility task of ~ 50 feet with cga and rolling walker ~75% of the time to increase independence with functional transfers. LTG: STG: Pt will be able to complete a sit to stand, step pivot from wheelchair to another surface using rolling walker and cga ~ 75% of the time to increase functional mobility. Pt will increase R hand sound cutter strength to 40 lbs. Pt will increase L hand sound cutter strength to 35 lbs Pt will be able to complete a functional mobility task of ~ 80 feet with sba and rolling walker ~75% of the time to increase independence with functional transfers. New diagnosis of cancer in past 12 No months? Chief Complaint Weakness,Decreased Community Education Specialist Strength Symptom Type Numbness,Tingling Symptoms Relieved By Rest/Positioning Symptoms Aggravated By Physical Activity,Lifting Prior Functional Limitations None Current Functional Limitations Lifting,Housework,Recreation Activity Shoulder/Elbow Eval Shoulder Objective Measurements Shoulder MMT Bilateral Shoulder Abduction Strength Grade 4- Good- Shoulder Flexion Strength Grade 4- Good- Shoulder External Rotation Strength 4- Good- Grade Shoulder Internal Rotation Strength 4- Good- Grade Shoulder Strength Patient Testing Sitting Position Elbow Objective Measurements Elbow MMT Bilateral Elbow Flexion Strength Grade 4- Good- Elbow Extension Strength Grade 4- Good- Supination Strength Grade 4- Good- Pronation Strength Grade 4- Good- Wrist/Hand Eval Community Education Specialist/Pinch Strength Right Community Education Specialist Strength Measurement (lbs) 22 Left Community Education Specialist Strength Measurement (lbs) 20 OT Outpatient Assessment Impairments Problems/Impairments Impaired Strength,Impaired Endurance,Impaired Lifting, Impaired Household Care, Impaired Recreational Activities,Impaired Work Activities,Subjective C/O Pain Prognosis Rehab Potential Good Clinical Impression Consistent with Diagnosis Yes Short Term Goals Number of Weeks 4 Increase Strength Yes: Bilateral UE shoulder/ elbow: 4/5 Increase Endurance Yes: Pt will tolerate B/L UE exercises for ~20 minutes prior to rest. Patient to be Ind w/ HEP Yes: Light strengthening in B/ L UE's with sound cutter strengthening exercises Alf Goals Number of Weeks 8 Increase Strength Yes: 5/5 throughout bilateral UE: shoulder/elbow Increase Endurance Yes: Pt will tolerate B/L UE exercises for ~30 min prior to rest. Patient to be Ind w/ Advanced HEP Yes: Advanced strengthening Outpatient Therapy Plan of Care Treatment Plan May Include Therapeutic Exercise Including Home Yes Exercise Program Manual Therapy Techniques Yes Neuromuscular Re-education Yes ADL/Self Care Education Yes Dry Needling Yes Thermal Modalities Yes Electrical Stimulation Yes Ultrasound/Phonophoresis Yes Iontophoresis Yes Orthotics/Bracing/Splinting Yes Massage Yes Eval/Re-Eval Yes Frequency Times per week 2 Duration Number of Weeks 8 Addendums This patient is a candidate for social No or vocational rehab? Patient/Guardian verbally acknowledges Yes understanding of treatment program and consents to further treatment? Patient/Guardian verbally acknowledges Yes understanding of diagnosis, prognosis and goals for treatment? Eval Complexity OT Charge 55424 - Moderate Complexity PHYSICIAN CERTIFICATION: I certify the specified therapy services for Eliz Pack Stien are required, authorized, and reviewed every 30 days.
== END 2023-07-29 16:00 | disposition home or self-care (01) ==
LOC: OT 14:59
PROVIDERS: Visit Provider Family Medicine
DX: M62.81 Muscle weakness (generalized) (principal); Z89.511 Acquired absence of right leg below knee
CPT/HCPCS: 97166

== ENCOUNTER 2023-08-27 13:28 | Outpatient (CLI) | payer MEDICAID, SELFPAY ==
--- NOTE | 2023-08-27 13:28 | US_ITS ---
PROCEDURE INFORMATION: Exam: US Right Breast, Complete US Left Breast, Complete MG Right Diagnostic Breast Tomosynthesis Exam date and time: 08/27/2023 1:20 PM Age: 48 years old Clinical indication: Patient recalled on the basis of a screening mammogram for further evaluation; Right breast; mass. Left axillary pain TECHNIQUE: Imaging protocol: Complete ultrasound of all four quadrants of the right breast and the retroareolar regions, including ultrasound of the axilla when performed. Complete ultrasound of all four quadrants of the left breast and the retroareolar regions, including ultrasound of the axilla when performed. Right Diagnostic tomosynthesis and 2D mammography including computer-aided detection (CAD) when performed. Unilateral or bilateral exam. COMPARISON: 1. MG MM DIG MAMM BI DX W/CAD 07/25/2023 12:47 PM 2. MG MM DIG SCREENING MAMM BI W/CAD 07/30/2022 10:56 AM FINDINGS: MAMMOGRAPHY: Breast composition: The breast is almost entirely fatty (based on the most recent screening mammogram report). Breast mammogram findings: Digital diagnostic spot compression views of the right posterior lower inner quadrant demonstrates a persistent well-circumscribed 1.4 cm mass seen in the craniocaudal spot compression view. ULTRASOUND: Breast ultrasound findings: Sonographic images of both breasts including the retroareolar regions, all 4 quadrants and the axilla demonstrates a well-circumscribed hypoechoic solid mass in the right 4 o'clock axis 15 cm from the nipple corresponding to the mass on mammography. The finding is radiographically indeterminate. No focal findings in the left axilla where the patient reports pain. Several fat containing a normal-appearing axillary lymph nodes are noted.No architectural distortion or acoustical shadowing. No skin thickening or axillary adenopathy. IMPRESSION: Indeterminate solid mass in the right lower inner quadrant. Ultrasound-guided core biopsy is recommended for further evaluation. ASSESSMENT: BI-RADS Category 4: Suspicious.
== END 2023-08-27 23:59 | disposition home or self-care (01) ==
LOC: RAD 13:28
PROVIDERS: PCP Family Medicine; Visit Provider Family Medicine
DX: N63.14 Unspecified lump in the right breast, lower inner quadrant (principal); M79.622 Pain in left upper arm
CPT/HCPCS: 76641; 77061; 77065; G0279

== ENCOUNTER 2023-09-23 07:35 | Outpatient (CLI) | payer MEDICAID, SELFPAY ==
--- NOTE | 2023-09-23 07:35 | US_ITS ---
FINAL REPORT CLINICAL HISTORY: 400- NODULE -- Rt breast nodule -- Dr. Maryam Spann -- biopsy not performed FINDINGS: RIGHT BREAST ULTRASOUND HISTORY: Palpable abnormality identified on previous ultrasound is 1.4 cm oval, superficial, hypoechoic nodule 4 o'clock position 15 cm from the nipple, biopsy recommended. FINDINGS: Palpable abnormality correlates with a 1.4 cm superficial, oval, hypoechoic nodule 4 o'clock position 15 cm from the nipple. On some images a hypoechoic tail was identified extending up through the skin consistent with a benign sebaceous cyst. Findings discussed with the patient. Patient is aware that needle biopsy cannot be performed due to the resulting inflammatory reaction. Needle localized excision could be performed if necessary at some point. IMPRESSION: Findings most consistent with a 14 mm sebaceous cyst 4 o'clock position right breast 15 cm from the nipple explaining the palpable abnormality, probably benign. BI-RADS 3: Probably benign. RECOMMENDATION: Follow-up right breast ultrasound in 6 months. Results sent to the patient in layman's terms. Authenticated and ERN
== END 2023-09-23 23:59 | disposition home or self-care (01) ==
LOC: RAD 07:35
PROVIDERS: PCP Family Medicine; Visit Provider Family Medicine
DX: R92.8 Other abnormal and inconclusive findings on diagnostic imaging of breast (principal); N63.14 Unspecified lump in the right breast, lower inner quadrant
CPT/HCPCS: 76642

== ENCOUNTER 2023-09-24 15:25 | Outpatient (CLI) | payer MEDICAID, SELFPAY ==
--- NOTE | 2023-09-24 15:35 | XR_ITS ---
FINAL REPORT CLINICAL HISTORY: lt knee pain FINDINGS: LEFT KNEE: Three views of the left knee were obtained. There is no acute fracture or dislocation. Moderate degenerative changes are noted. There is a small joint effusion. Soft tissues are unremarkable. IMPRESSION: Degenerative changes and a small joint effusion. Reviewed, Interpreted and Dictated by Luther Cruz III, MD Transcribed by Mary Chan Authenticated and [facility]
== END 2023-09-24 23:59 | disposition home or self-care (01) ==
LOC: RAD 15:26
PROVIDERS: PCP Family Medicine; Visit Provider Orthopaedic Surgery
DX: M25.562 Pain in left knee (principal)
CPT/HCPCS: 73562

== ENCOUNTER 2024-03-17 20:19 | Inpatient (IN) | payer MEDICAID, SELFPAY ==
[2024-03-17 21:08] VITALS: BP 144/91; PULSE 100; RESP 20; TEMP 37.2; O2SAT 100; BMI 47.0
--- NOTE | 2024-03-17 21:20 | CT_ITS ---
PROCEDURE INFORMATION: Exam: CT Left Upper Extremity With Contrast, Shoulder Exam date and time: 03/17/2024 11:33 PM Age: 48 years old Clinical indication: Other: Axillary abscess; Additional info: L axillary abscess TECHNIQUE: Imaging protocol: Computed tomography of the left upper extremity with contrast. Exam focused on the shoulder Radiation optimization: All CT scans at this facility use at least one of these dose optimization techniques: automated exposure control; mA and/or kV adjustment per patient size (includes targeted exams where dose is matched to clinical indication); or iterative reconstruction. Contrast material: ISOVUE; Contrast volume: 75 ml; Contrast route: IV; COMPARISON: CT CHEST W CON 03/17/2024 11:27 PM FINDINGS: Bones/joints: Normal. No acute fracture or dislocation. Soft tissues: Poorly defined inflammatory focus in left medial axilla with intense fat stranding measures 7.2 x 10.0 x 6.4 cm. No air collection. No obvious radiopaque foreign body. Lymph nodes: Reactive type reactive type bi axillary lymph nodes. IMPRESSION: Intensely inflammatory left medial axillary focus suspicious for phlegmon/developing abscess.
--- NOTE | 2024-03-17 21:20 | CT_ITS ---
PROCEDURE INFORMATION: Exam: CT Chest With Contrast; Diagnostic Exam date and time: 03/17/2024 11:27 PM Age: 48 years old Clinical indication: Other: Chest wall abscess; Additional info: L axillary/chest wall abscess TECHNIQUE: Imaging protocol: Diagnostic computed tomography of the chest with contrast. Radiation optimization: All CT scans at this facility use at least one of these dose optimization techniques: automated exposure control; mA and/or kV adjustment per patient size (includes targeted exams where dose is matched to clinical indication); or iterative reconstruction. Contrast material: ISOVUE; Contrast volume: 75 ml; Contrast route: IV; COMPARISON: CR XR CHEST PORTABLE 07/23/2022 9:52 PM FINDINGS: Lungs: Unremarkable. No consolidation. No masses. Pleural spaces: Unremarkable. No pneumothorax. No pleural effusion. Heart: Unremarkable. No cardiomegaly. No pericardial effusion. Lymph nodes: Unremarkable. No enlarged lymph nodes. Vasculature: Unremarkable. No aortic aneurysm. Bones/joints: Unremarkable. No acute fracture. Soft tissues: Area of concern is barely covered in this study. There is poorly defined soft tissue inflammatory focus measuring at least 4.7 x 9.8 x 6.4 cm in visualized left anterolateral chest wall/axilla. IMPRESSION: 1. Barely imaged, poorly defined subcutaneous inflammatory focus in left anterolateral chest wall/axilla suspicious for phlegmon/developing abscess. 2. No acute intrathoracic findings identified.
--- NOTE | 2024-03-17 21:27 | HMH.EDGENADL ---
Discharge Plan Disposition Patient Disposition: Admitted Condition: Good Clinical Impressions Clinical Impression: Abscess of axilla, left, Sepsis due to cellulitis, General weakness Discharge ED Provider: Elise Rey General Adult HPI General Chief complaint: Wound/Laceration Stated complaint: chills, weakness Time Seen by Provider: 03/17/24 21:17 Mode of Arrival: Wheelchair Source of Information: Patient Limitations: No Limitations Description of Symptoms (Recalled from ER Triage Doc. by RN): Pt states she has a rash/wound under left arm that is painful. Pt states it started 2 days ago. History of Present Illness HPI narrative: This patient is a 48-year-old female with a history of morbid obesity, type 2 diabetes, hypertension, hyperlipidemia, hypertensive heart disease, paroxysmal atrial fibrillation on Eliquis, right BKA presenting to the emergency department for evaluation with concern for redness, swelling, and tenderness to her left underarm. She states that it started a few days ago but has progressively worsened. She notes she is concerned she has a staph infection. She also notes chills and nausea and states she overall does not feel well. No fevers documented at home. Related Data Home Medications ?Medication ?Instructions ?Recorded ?Confirmed cyclobenzaprine 10 mg tablet mg PO 12/30/23 12/30/23 losartan 25 mg tablet mg PO 12/30/23 12/30/23 meclizine 25 mg tablet mg PO 12/30/23 12/30/23 Previous Rx's ?Medication ?Instructions ?Recorded varicella-zoster glycoE [id number] 50 mcg IM ONCE #1 ea 04/03/23 adj(PF) 50 mcg/0.5 mL IM susp, kit mupirocin 2 % topical ointment 1 applic topical TID PRN infection 06/03/23 #22 grams white petrolatum 41 % topical 1 applic topical BID PRN dry skin 06/03/23 ointment (Aquaphor Healing) #80 grams atorvastatin 20 mg tablet 20 mg PO HS Cholesterol #90 tabs 07/31/23 insulin glargine 100 unit/mL (3 80 unit (0.8 mL) SQ BID #15 mL 07/31/23 mL) subcutaneous pen (Lantus Solostar U-100 Insulin) insulin lispro 100 unit/mL 8 unit (0.08 mL) SQ AC #10 mL 07/31/23 subcutaneous solution (Humalog U-100 Insulin) spironolactone 50 mg tablet 50 mg PO BID PRN Fluid #60 tabs 07/31/23 torsemide 20 mg tablet 40 mg (2 x 20 mg) PO DAILY PRN 07/31/23 diuretic #60 tabs blood-glucose transmitter (Dexcom #1 ea 09/06/23 G6 Transmitter device) alprazolam 2 mg tablet See Rx Instructions .Route 09/20/23 .COMPLEX #1 tab desvenlafaxine succinate 50 mg 50 mg PO DAILY #90 tabs 10/31/23 tablet,extended release 24 hr (Pristiq) insulin aspart U-100 100 unit/mL See Rx Instructions .Route 10/31/23 (3 mL) subcutaneous pen .COMPLEX #15 mL diclofenac sodium 1 % topical gel 2 g topical QID #100 grams 12/30/23 (Arthritis Pain (diclofenac)) diltiazem HCl 300 mg 300 mg PO DAILY #90 caps 12/30/23 capsule,extended release 24 hr dulaglutide 0.75 mg/0.5 mL 0.75 mg (0.5 mL) SQ WEEKLY #2.5 mL 12/30/23 subcutaneous pen injector (Trulicity) losartan 100 mg tablet 100 mg PO DAILY #90 tabs 12/30/23 [id number] 3.3 4 drp otic (ear) QID #10 mL 12/30/23 mg-3 mg-10 mg-0.5 mg/mL ear drops,susp (Cortisporin-TC) apixaban 5 mg tablet 5 mg PO BID atrial fibrillation 30 02/03/24 days #60 tabs blood-glucose sensor (Dexcom G6 #3 ea 02/03/24 Sensor device) cariprazine 3 mg capsule (Vraylar) 3 mg PO DAILY mood #30 caps 02/03/24 hydralazine 50 mg tablet 50 mg PO TID #90 tabs 02/03/24 hydroxyzine HCl 25 mg tablet 25 mg PO Q6H PRN anxiety #60 tabs 02/03/24 trazodone 150 mg tablet 150 mg PO HS #90 tabs 02/03/24 hydrocodone 5 mg-acetaminophen 325 1 tab PO Q8H PRN pain #90 tabs 02/06/24 mg tablet gabapentin 300 mg capsule 300 mg PO TID #90 caps 02/13/24 fluticasone propionate 50 2 spray intranasal DAILY PRN nasal 03/09/24 mcg/actuation nasal congestion #16 grams spray,suspension sulfamethoxazole 800 1 tab PO BID #20 tabs 03/11/24 mg-trimethoprim 160 mg tablet (Bactrim DS) Allergies Allergy/AdvReac Type Severity Reaction Status Date / Time No Known Allergies Allergy Verified 12/30/23 15:19 [facility] Disclaimer: The information contained in this section may have been updated after the patient was seen, as this information can be updated by other users. Medical History Urinary tract infection Seizure disorder Fibromyalgia Cellulitis Pancreatitis History of gastroesophageal reflux (GERD) High blood pressure High cholesterol Afib Mood disorder CHF (congestive heart failure) Diabetes Tachycardia Surgical History History of cholecystectomy History of appendectomy History of section History of hysterectomy History of colonoscopy Family History Other Family history of cancer Family history of myocardial infarction Family history of stroke Social History Smoking Status: Current every day smoker tobacco type: cigarettes second hand exposure: Yes alcohol intake: former substance use type: denies use current occupational status: unemployed and disabled Travel in the last 8 weeks: None household members: spouse housing: house current occupational exposures/hazards: No caffeine: Yes Have you lived/traveled outside US in past 30 days?: No Contact w/someone who lives/traveled outside US past 30 days?: No Exposure to someone with infectious disease in past 14 days?: No Do you have a fever (greater than 100.4 F or 38 C)?: Yes Have you tested positive for COVID-19: No Exposed to someone with COVID-19 in past 14 days?: No Do you have a sore throat?: No Do you have a cough?: No Do you have any weakness?: Yes Do you have any diarrhea?: No Are you experiencing any unusual bleeding?: No Do you have any muscle aches/pain?: No Do you have any abdominal pain?: No Are you experiencing loss of taste or smell?: No Other Medical History Have you received the Flu Vaccine for this season: No Have you received the Pneumonia Vaccine: No ROS Obtained: Yes All systems reviewed & no additional complaints except as documented Physical Exam General General appearance: alert, in no apparent distress and obese Head Head exam: atraumatic and normocephalic Eye Eye exam: Present normal appearance, PERRL and EOMI ENT ENT exam: Present normal exam, normal oropharynx, mucous membranes moist and normal external ear exam Neck Neck exam: Present normal inspection, full ROM and trachea midline; Absent tenderness Chest Chest inspection: Present symmetric chest wall rise, tenderness and abscess Expanded Chest Exam Female Torso: 1. Very large area of redness, warmth, tenderness, induration of the left axilla Respiratory Respiratory exam: Present normal lung sounds bilaterally; Absent respiratory distress, wheezes, stridor or accessory muscle use Cardiovascular Cardiovascular exam: Present regular rate and normal rhythm Abdominal Exam Abdominal exam: Present soft; Absent distention, tenderness or guarding Extremities Exam Extremities exam: Present full ROM, normal capillary refill and other (Right lower extremity BKA); Absent tenderness or edema Back Exam Back exam: Present normal inspection and full ROM; Absent tenderness Neurological Exam Neurological exam: Present alert, oriented X3 and CN II-XII intact; Absent motor sensory deficit Psychiatric Psychiatric exam: Present normal affect and normal mood Skin Skin exam: Present warm and dry Medical Decision Making Medical Records Medical records reviewed: Yes I reviewed the patient's medical records. Screening: Per USPSTF and CDC recommendations, given the prevalence of disease in our region, it is our hospital?s policy to screen for HIV and viral Hepatitis for all patients aged 18 and over and those with ongoing risk factors. Goyo Inquiry Pt receiving controlled substance: No Vital Signs: 03/17/24 21:08 03/17/24 21:31 Temperature 98.9 F Temperature Source Oral Pulse Rate 94 H Pulse Rate [Left Brachial] 100 H Respiratory Rate 20 Blood Pressure 171/87 H Blood Pressure [Left Arm] 144/91 H Blood Pressure Mean [Left Arm] 108 Blood Pressure Source [Left Arm] Automatic Cuff Blood Pressure Position [Left Arm] Sitting 02 Sat by Pulse Oximetry 100 99 Oxygen Delivery Method Room Air Lab Data Lab results reviewed: Yes I reviewed the patient's lab results. Lab Results 03/17/24 21:32: WBC 14.6 H, RBC 4.58, Hgb 12.6, Hct 38.3, MCV 83.6, MCH 27.5, MCHC 32.9, RDW 13.9, Plt Count 309, MPV 9.6, Neut % (Auto) 82.5 H, Lymph % (Auto) 8.6 L, [place] % (Auto) 6.5, Eos % (Auto) 1.5, Baso % (Auto) 0.3, Neut # (Auto) 12.0 H, Lymph # (Auto) 1.3, [place] # (Auto) 1.0, Eos # (Auto) 0.2, Baso # (Auto) 0.0, ESR 48 H, Sodium 133 L, Potassium 4.5, Chloride 99, Carbon Dioxide 29, Anion Gap 9.5, BUN 17, Creatinine 0.90, Estimated Creat Clear 74, Estimated GFR 67, Est GFR ( Amer) 81, Glucose 280 H, Hemoglobin A1c 8.3 H, Lactate 1.9, Calcium 9.2, Total Bilirubin 0.6, AST 26, ALT 23, Alkaline Phosphatase 98, C-Reactive Protein 106.3 H, Total Protein 7.2, Albumin 3.7, Globulin 3.5 H, Albumin/Globulin Ratio 1.1, HIV Ag/Ab Combo Qual Negative 03/17/24 21:32 03/17/24 21:32 Orders (Tests/Meds): ED MEDICATIONS Generic Name Dose Route Start Last Admin Trade Name Freq PRN Reason Stop Dose Admin Acetaminophen 650 mg 03/18/24 00:05 Acetaminophen 325mg Tab PO 04/17/24 00:04 Q4HP PRN Fever or Mild Pain (1-3) Al Hydrox/Mg Hydrox/Simethicone 30 ml 03/18/24 00:05 Aluminum/Magnesium/Simethicone 30ml Udc PO 04/17/24 00:04 QIDP PRN Dyspepsia Cefepime HCl 1 gm/ Sodium 50 mls @ 100 mls/hr 03/18/24 00:15 Chloride IV 03/25/24 00:14 Q12H CORDELIA Vancomycin HCl 2,500 mg/ 500 mls @ 250 mls/hr 03/18/24 00:30 Sodium Chloride IV 03/18/24 02:29 ONCE ONE Miscellaneous 1 each 03/17/24 23:45 Vancomycin Consult Request NOTAPPLIC 04/16/24 23:44 CONSULT PHARMACY [facility] Morphine Sulfate 2 mg 03/18/24 00:05 Morphine 2mg/Ml Syringe IV 04/17/24 00:04 Q4HP PRN Moderate Pain (4-6) Morphine Sulfate 4 mg 03/18/24 00:05 Morphine 4mg/Ml Syringe IV 04/17/24 00:04 Q4HP PRN Severe Pain (7-10) Ondansetron HCl 4 mg 03/18/24 00:05 Ondansetron 4mg/2ml Vial IV 04/17/24 00:04 Q8HP PRN Nausea Sodium Chloride 10 ml 03/17/24 23:47 03/17/24 23:47 Sodium Chloride 0.9% 10ml Syr (Rad Only) IV 04/16/24 23:46 10 ml NEEDED PRN Administration Maintain IV Site Discontinued Medications Generic Name Dose Route Start Last Admin Trade Name Freq PRN Reason Stop Dose Admin Fentanyl Citrate 50 mcg 03/17/24 22:55 03/17/24 23:03 Fentanyl 100mcg/2ml Vial IV 03/17/24 22:56 50 mcg ONCE ONE Administration Ceftriaxone Sodium 2 gm/ 100 mls @ 200 mls/hr 03/17/24 23:55 03/18/24 00:14 Sodium Chloride IV 03/18/24 00:24 200 mls/hr ONCE ONE Administration Vancomycin HCl 1,000 mg/ 250 mls @ 125 mls/hr 03/18/24 00:03 Sodium Chloride IV 03/18/24 00:04 ONCE ONE Iopamidol 150 ml 03/17/24 23:47 03/17/24 23:47 Iopamidol-370 (76%);100ml Bottle IV 03/17/24 23:48 150 ml ONCE ONE Administration Miscellaneous 1 each 03/18/24 00:15 Vancomycin Consult Request NOTAPPLIC 04/17/24 00:14 CONSULT PHARMACY [facility] Morphine Sulfate 4 mg 03/17/24 21:23 03/17/24 21:46 Morphine 4mg/Ml Syringe IV 03/17/24 21:24 4 mg ONCE ONE Administration Ondansetron HCl 4 mg 03/17/24 21:23 03/17/24 21:39 Ondansetron 4mg/2ml Vial IV 03/17/24 21:24 4 mg ONCE ONE Administration ORDERS Category Date Time Status CT chest w con Stat Cat Scan 03/17/24 21:[address] shoulder LT w con Stat Cat Scan 03/17/24 21:20 Taken Basic Metabolic Panel AMLAB Lab 03/18/24 06:00 Ordered Basic Metabolic Panel AMLAB Lab 03/19/24 06:00 Ordered Basic Metabolic Panel AMLAB Lab 03/20/24 06:00 Ordered CBC w/Auto Diff [Complete Blood Count Auto Diff] Stat Lab 03/17/24 21:32 Completed CMP [Comprehensive Metabolic Panel] Stat Lab 03/17/24 21:32 Completed CRP [C-Reactive Protein] Stat Lab 03/17/24 21:32 Completed Complete Blood Count Auto Diff AMLAB Lab 03/18/24 06:00 Ordered Complete Blood Count Auto Diff AMLAB Lab 03/19/24 06:00 Ordered Complete Blood Count Auto Diff AMLAB Lab 03/20/24 06:00 Ordered ESR [Erythrocyte Sedimentation Rate] Stat Lab 03/17/24 21:32 Completed HIV Combo Stat Lab 03/17/24 21:32 Completed Hemoglobin A1C Stat Lab 03/17/24 21:32 Completed Hep C Ab with Reflex to RNA Stat Lab 03/17/24 21:32 Received Lactic Acid Routine Lab 03/18/24 00:08 Ordered Lactic Acid Stat Lab 03/17/24 21:32 Completed Magnesium AML[facility] Lab 03/18/24 06:00 Ordered Magnesium AMLAB Lab 03/19/24 06:00 Ordered Magnesium AMLAB Lab 03/20/24 06:00 Ordered Procalcitonin Urgent Lab 03/18/24 00:08 Ordered Blood Culture Stat Micro 03/17/24 22:10 Received Medical Decision Narrative: In summary, this patient is a 48-year-old female presenting to the Emergency Department for evaluation of redness, pain, swelling of her left axilla. Differential diagnoses considered include but are not limited to abscess, cellulitis, lymphadenitis, necrotizing soft tissue infection. Ruling out the most morbid conditions drove assessment. It should be noted patient's history includes morbid obesity, type 2 diabetes, hypertension, hyperlipidemia, CAD, atrial fibrillation which may or may not be at goal therapy. This complicates all aspects of care by increasing patient's risk for morbidity. I reviewed patient's past medical records and noted previous PCP evaluations for comorbid conditions as above. On exam, the patient is sitting upright in a chair in no acute distress. She has significant redness, warmth, swelling, tenderness of the left axilla with a very large area of induration. I am concern for abscess that could potentially expand deeper, as exam is limited given the patient's body habitus. Workup included CBC, CMP, ESR, CRP, lactic acid, blood cultures, and CT scans of the chest and left axilla with IV contrast. Patient was given IV morphine and Zofran for symptomatic improvement. I independently interpreted CT scan prior to the radiologist read and noted left axillary cellulitis with abscess. No appreciable gas. Please see their read for final interpretation. Labs were obtained that demonstrated leukocytosis. Patient is tachycardic and has subjective chills, but is afebrile. Ultimately, I am concerned for possible systemic infection but she does not truly meet sepsis criteria at this time. She continued to have pain, so she was given IV fentanyl. She was given IV vancomycin and Rocephin for antibiotic coverage after blood cultures were sent.. Ultimately, patient is too weak to stand here in the emergency department and has evidence of potential systemic infection. I called and had an interactive discussion with Dr. Muhammad with surgery who advised he would consult on the patient for axillary abscess. I called and had an indirect discussion with the hospitalist Dr. Snyder who admitted the patient in stable condition. Critical Care Critical Care Time Critical Care Time: No
[2024-03-17 21:31] VITALS: BP 171/87; PULSE 94; O2SAT 99
[2024-03-17] MEDS: ONDANSETRON 4MG/2ML VIAL 4 MG IV (21:39)
[2024-03-17] MEDS: MORPHINE 4MG/ML SYRINGE 4 MG IV (21:46)
[2024-03-17 21:54] LABS: Albumin Level 3.7 g/dl (3.5-5.0); Chloride 99 mmol/L (98-107); Sodium 133 mmol/L (136-145)
[2024-03-17 21:55] LABS: Potassium 4.5 mmoL/L (3.5-5.1)
[2024-03-17 21:56] LABS: White Blood Count 14.6 K/mm3 (4.8-10.8)
[2024-03-17 21:57] LABS: Alanine Aminotransferase 23 U/L (12-78); Albumin/Globulin Ratio 1.1 (1.1-1.8); Alkaline Phosphatase 98 U/L (38-126); Anion Gap 9.5 mEq/L (5-15); Aspartate Amino Transferase 26 U/L (14-36); Bilirubin,Total 0.6 mg/dl (0.2-1.3); Blood Urea Nitrogen 17 mg/dl (7-17); Carbon Dioxide 29 mmol/L (22.0-30.0); Creatinine Clearance Estimated 74 mL/min (50-200); Estimated Glomerular Filt Rate 67 ml/min (>60); GFR (African American) 81 ML/MIN (>60); Globulin 3.5 g/dL (1.3-3.2); Lactic Acid 1.9 mmol/L (0.7-2.1); Total Protein,Serum 7.2 g/dl (6.3-8.2)
[2024-03-17 21:58] LABS: Calcium 9.2 mg/dl (8.4-10.2); Glucose 280 mg/dl (74-100); Hemoglobin 12.6 g/dL (12.2-16.2); Red Blood Count 4.58 M/mm3 (4.20-5.40)
[2024-03-17 21:59] LABS: Hematocrit 38.3 % (37.0-47.0); Lymphocytes % 8.6 % (10-50); Mean Corpuscular HGB Conc 32.9 g/dL (31.8-35.4); Mean Corpuscular Hemoglobin 27.5 pg (27.0-31.2); Mean Corpuscular Volume 83.6 fl (81-99); Mean Platelet Volume 9.6 fl (7.4-10.4); Neutrophils % 82.5 % (37.0-80.0); Platelet Count 309 K/mm3 (142-424); Red Cell Distribution Width 13.9 % (11.5-17.5)
[2024-03-17 22:00] LABS: Basophils % 0.3 % (0.1-2.0); Eosinophils # 0.2 K/mm3 (0.0-0.4); Eosinophils % 1.5 % (0.1-12.0); Lymphocytes # 1.3 K/mm3 (0.7-4.5); Monocytes % 6.5 % (1.7-9.3)
[2024-03-17 22:03] LABS: C-Reactive Protein 106.3 mg/L (0-4)
[2024-03-17 22:11] LABS: Hemoglobin A1C 8.3 % (4.0-6.0)
[2024-03-17 22:18] LABS: Erythrocyte Sedimentation Rate 48 mm/hr (0-20)
[2024-03-17 22:52] LABS: HIV Combo NEGATIVE (Negative)
[2024-03-17] MEDS: FENTANYL 100MCG/2ML VIAL 50 MCG IV (23:03)
[2024-03-17] MEDS: SODIUM CHLORIDE 0.9% 10ML SYR (RAD ONLY) 10 ML IV (23:47)
[2024-03-17] MEDS: IOPAMIDOL-370 (76%);100ML BOTTLE 150 ML IV (23:47)
[2024-03-18] VITALS (20 sets, daily range): BP systolic 85–179; BP diastolic 50–91; PULSE 70–102; RESP 12–20; TEMP 36.5–37.7; O2SAT 89–98; BMI 51.7
[2024-03-18] MEDS: CEFTRIAXONE SODIUM 2 GM in 0.9 % SODIUM CHLORIDE 100 ML IV (00:14)
--- NOTE | 2024-03-18 00:29 | P.HP_ITS ---
History of Present Illness *Admission Date: 03/18/24 *Reason for visit:: Right armpit pain, swelling, redness *History of present illness: 48-year-old with past medical history of diabetes, mood disorder, obesity, hypertension, hyperlipidemia, CAD, atrial fibrillation on Eliquis HFpEF, tobacco user. Patient presents with 2 to 3 days right axillary pain and potential right axillary abscess noted on CT chest/shoulder. Patient states she suffered from redness/swelling of right armpit/shoulder region for past 2 3 days. Describes pain as 10/10, burning, stabbing, focused in right anterior shoulder with radiation to armpit. Pain lasts a few minutes, better with cool baby wipes, and worse with movement. I noted fluctuance, and extreme redness of anterior shoulder/armpit during my physical exam. WBC 14.6, LA 1.9, CRP 106.3. Procalcitonin pending at time of admission. Patient is diabetic, with hemoglobin A1c 8.3 at time of admission. Admits to history of recurrent skin infections, including necrotizing fasciitis 2022 requiring right BKA amputation. states patient has had other skin abscess drainage procedures in recent past. Denies chest pain, shortness of breath, productive cough, blurry vision, abdominal pain, diarrhea, constipation. Patient at baseline uses wheelchair for mobility. [facility] Disclaimer: The information contained in this section may have been updated after the patient was seen, as this information can be updated by other users. Medical History Urinary tract infection Seizure disorder Fibromyalgia Cellulitis Pancreatitis History of gastroesophageal reflux (GERD) High blood pressure High cholesterol Afib Mood disorder CHF (congestive heart failure) Diabetes Tachycardia Surgical History History of cholecystectomy History of appendectomy History of section History of hysterectomy History of colonoscopy Family History Other Family history of cancer Family history of myocardial infarction Family history of stroke Social History Smoking Status: Current every day smoker tobacco type: cigarettes second hand exposure: Yes alcohol intake: former substance use type: denies use current occupational status: unemployed and disabled Travel in the last 8 weeks: None household members: spouse housing: house current occupational exposures/hazards: No caffeine: Yes Have you lived/traveled outside US in past 30 days?: No Contact w/someone who lives/traveled outside US past 30 days?: No Exposure to someone with infectious disease in past 14 days?: No Do you have a fever (greater than 100.4 F or 38 C)?: Yes Have you tested positive for COVID-19: No Exposed to someone with COVID-19 in past 14 days?: No Do you have a sore throat?: No Do you have a cough?: No Do you have any weakness?: Yes Do you have any diarrhea?: No Are you experiencing any unusual bleeding?: No Do you have any muscle aches/pain?: No Do you have any abdominal pain?: No Are you experiencing loss of taste or smell?: No Other Medical History Have you received the Flu Vaccine for this season: No Have you received the Pneumonia Vaccine: No Review of Systems Review of Systems Review of systems:: pertinent systems reviewed and negative unless documented below Constitutional Constitutional: Reports system reviewed and no additional complaints, except as documented Meds Home Medications and Allergies Home Medications ?Medication ?Instructions ?Recorded ?Confirmed ?Type varicella-zoster glycoE vacc-[id number] 50 mcg IM ONCE #1 ea 04/03/23 12/30/23 Rx adj(PF) 50 mcg/0.5 mL IM susp, kit mupirocin 2 % topical ointment 1 applic topical TID PRN infection 06/03/23 12/30/23 Rx #22 grams white petrolatum 41 % topical 1 applic topical BID PRN dry skin 06/03/23 12/30/23 Rx ointment (Aquaphor Healing) #80 grams atorvastatin 20 mg tablet 20 mg PO HS Cholesterol #90 tabs 07/31/23 12/30/23 Rx insulin glargine 100 unit/mL (3 80 unit (0.8 mL) SQ BID #15 mL 07/31/23 12/30/23 Rx mL) subcutaneous pen (Lantus Solostar U-100 Insulin) insulin lispro 100 unit/mL 8 unit (0.08 mL) SQ AC #10 mL 07/31/23 12/30/23 Rx subcutaneous solution (Humalog U-100 Insulin) spironolactone 50 mg tablet 50 mg PO BID PRN Fluid #60 tabs 07/31/23 12/30/23 Rx torsemide 20 mg tablet 40 mg (2 x 20 mg) PO DAILY PRN 07/31/23 12/30/23 Rx diuretic #60 tabs blood-glucose transmitter (Dexcom #1 ea 09/06/23 10/31/23 Rx G6 Transmitter device) alprazolam 2 mg tablet See Rx Instructions .Route 09/20/23 12/30/23 Rx .COMPLEX #1 tab desvenlafaxine succinate 50 mg 50 mg PO DAILY #90 tabs 10/31/23 12/30/23 Rx tablet,extended release 24 hr (Pristiq) insulin aspart U-100 100 unit/mL See Rx Instructions .Route 10/31/23 12/30/23 Rx (3 mL) subcutaneous pen .COMPLEX #15 mL cyclobenzaprine 10 mg tablet mg PO 12/30/23 12/30/23 History diclofenac sodium 1 % topical gel 2 g topical QID #100 grams 12/30/23 12/30/23 Rx (Arthritis Pain (diclofenac)) diltiazem HCl 300 mg 300 mg PO DAILY #90 caps 12/30/23 12/30/23 Rx capsule,extended release 24 hr dulaglutide 0.75 mg/0.5 mL 0.75 mg (0.5 mL) SQ WEEKLY #2.5 mL 12/30/23 12/30/23 Rx subcutaneous pen injector (Trulicity) losartan 100 mg tablet 100 mg PO DAILY #90 tabs 12/30/23 12/30/23 Rx losartan 25 mg tablet mg PO 12/30/23 12/30/23 History meclizine 25 mg tablet mg PO 12/30/23 12/30/23 History [id number] 3.3 4 drp otic (ear) QID #10 mL 12/30/23 12/30/23 Rx mg-3 mg-10 mg-0.5 mg/mL ear drops,susp (Cortisporin-TC) apixaban 5 mg tablet 5 mg PO BID atrial fibrillation 30 02/03/24 Rx days #60 tabs blood-glucose sensor (Dexcom G6 #3 ea 02/03/24 Rx Sensor device) cariprazine 3 mg capsule (Vraylar) 3 mg PO DAILY mood #30 caps 02/03/24 Rx hydralazine 50 mg tablet 50 mg PO TID #90 tabs 02/03/24 Rx hydroxyzine HCl 25 mg tablet 25 mg PO Q6H PRN anxiety #60 tabs 02/03/24 Rx trazodone 150 mg tablet 150 mg PO HS #90 tabs 02/03/24 Rx hydrocodone 5 mg-acetaminophen 325 1 tab PO Q8H PRN pain #90 tabs 02/06/24 Rx mg tablet gabapentin 300 mg capsule 300 mg PO TID #90 caps 02/13/24 Rx fluticasone propionate 50 2 spray intranasal DAILY PRN nasal 03/09/24 Rx mcg/actuation nasal congestion #16 grams spray,suspension sulfamethoxazole 800 1 tab PO BID #20 tabs 03/11/24 Rx mg-trimethoprim 160 mg tablet (Bactrim DS) New Prescriptions to Start Prescriptions: Allergies Allergy/AdvReac Type Severity Reaction Status Date / Time No Known Allergies Allergy Verified 12/30/23 15:19 Exam Data for Last 24 hours Vital signs and Labs for Last 24 Hours: Temp Pulse Resp BP Pulse Ox O2 Del Method 98.9 F 94 H 20 171/87 H 99 Room Air 03/17/24 21:08 03/17/24 21:31 03/17/24 21:08 03/17/24 21:31 03/17/24 21:31 03/17/24 21:08 Laboratory Results - last 24 hr 03/17/24 21:32: WBC 14.6 H, RBC 4.58, Hgb 12.6, Hct 38.3, MCV 83.6, MCH 27.5, MCHC 32.9, RDW 13.9, Plt Count 309, MPV 9.6, Neut % (Auto) 82.5 H, Lymph % (Auto) 8.6 L, [place] % (Auto) 6.5, Eos % (Auto) 1.5, Baso % (Auto) 0.3, Neut # (Auto) 12.0 H, Lymph # (Auto) 1.3, [place] # (Auto) 1.0, Eos # (Auto) 0.2, Baso # (Auto) 0.0, ESR 48 H, Sodium 133 L, Potassium 4.5, Chloride 99, Carbon Dioxide 29, Anion Gap 9.5, BUN 17, Creatinine 0.90, Estimated Creat Clear 74, Estimated GFR 67, Est GFR ( Amer) 81, Glucose 280 H, Hemoglobin A1c 8.3 H, Lactate 1.9, Calcium 9.2, Total Bilirubin 0.6, AST 26, ALT 23, Alkaline Phosphatase 98, C-Reactive Protein 106.3 H, Total Protein 7.2, Albumin 3.7, Globulin 3.5 H, Albumin/Globulin Ratio 1.1, HIV Ag/Ab Combo Qual Negative I & O for Last 24 hours: Intake & Output 03/15/24 03/16/24 03/17/24 03/18/24 23:59 23:59 23:59 23:59 Weight 136.078 kg Constitutional Constitutional: mild distress (Right axillary shoulder pain) *Routine HEENT Exam Head: Present normocephalic Eye: Present EOMI ENT: Present mucous membranes moist *Routine Neck Exam Neck: Present supple and full ROM *Routine Respiratory Exam Respiratory: Present diminished air movement; Absent accessory muscle use *Routine Cardiovascular Exam Cardiovascular: Present RRR, Normal S1 and Normal S2 *Routine Abdominal Exam Abdominal: Present soft and normoactive bowel sounds *Routine Rectal Exam Rectal:: deferred *Routine Genitalia Exam Genitalia:: deferred *Routine Extremities Exam Extremities: Present normal capillary refill *Routine Skin Exam Skin: Present intact, normal turgor and wounds (Right shoulder anterior region erythematous, with erythema extending to armpit, fluctuant, TTP, warm to touch) *Routine Neurological Exam Neurological: Present alert and oriented X3 Assessment and Plan *Assessment and plan (1) Sepsis due to cellulitis: Status: Acute Category: Medical Code(s): L03.90 - Cellulitis, unspecified; A41.9 - Sepsis, unspecified organism (2) Abscess of axilla, left: Status: Acute Category: Medical Code(s): L02.412 - Cutaneous abscess of left axilla (3) General weakness: Status: Acute Category: Medical Code(s): R53.1 - Weakness (4) Afib: Status: Acute Category: Medical Code(s): I48.91 - Unspecified atrial fibrillation (5) Mood disorder: Status: Acute Category: Medical Code(s): F39 - Unspecified mood [affective] disorder (6) Diabetes mellitus: Status: Chronic Qualifiers: Diabetes mellitus complication status: with other specified complication Diabetes mellitus terminal make up operator insulin use: unspecified terminal make up operator insulin use status Diabetes mellitus type: type 2 Qualified Code(s): E11.69 - Type 2 diab etes mellitus with other specified complication Category: Medical Code(s): E11.9 - Type 2 diabetes mellitus without complications (7) CAD (coronary artery disease): Status: Acute Qualifiers: Associated angina: without angina Coronary Disease-Associated Artery/Lesion type: [place] artery [place] vs. transplanted heart: [place] heart Qualified Code(s): I25.10 - Atherosclerotic heart disease of [place] coronary artery without angina pectoris Category: Medical Code(s): I25.10 - Atherosclerotic heart disease of [place] coronary artery without angina pectoris (8) (HFpEF) heart failure with preserved ejection fraction: Status: Chronic Qualifiers: Heart failure chronicity: acute on chronic Qualified Code(s): I50.33 - Acute on chronic diastolic (congestive) heart failure Category: Medical Code(s): I50.30 - Unspecified diastolic (congestive) heart failure (9) Morbid obesity: Status: Chronic Category: Medical Code(s): E66.01 - Morbid (severe) obesity due to excess calories (10) Malignant hypertension: Status: Chronic Category: Medical Code(s): I10 - Essential (primary) hypertension (11) HLD (hyperlipidemia): Status: Chronic Qualifiers: Hyperlipidemia type: mixed hyperlipidemia Qualified Code(s): E78.2 - Mixed hyperlipidemia Category: Medical Code(s): E78.5 - Hyperlipidemia, unspecified (12) HHD (hypertensive heart disease): Status: Chronic Qualifiers: Heart failure presence: without heart failure Qualified Code(s): I11.9 - Hypertensive heart disease without heart failure Category: Medical Code(s): I11.9 - Hypertensive heart disease without heart failure (13) Hypertensive urgency: Status: Resolved Category: Medical Code(s): I16.0 - Hypertensive urgency (14) PAF (paroxysmal atrial fibrillation): Status: Chronic Category: Medical Code(s): I48.0 - Paroxysmal atrial fibrillation Plan 48-year-old with past medical history of diabetes, mood disorder, obesity, hypertension, hyperlipidemia, CAD, atrial fibrillation on Eliquis HFpEF, tobacco user. Patient presents with 2 to 3 days right axillary pain and potential right axillary abscess noted on CT chest/shoulder. WBC 14.6, LA 1.9, CRP 106.3. Procalcitonin pending at time of admission. Problems as listed below: Imaging/labwork reviewed at time of admission: -CT shoulder/chest: I performed wet read At time of admission because radiology read unavailable. Potential abscess right axillary shoulder region. ?WBC 14.6, Hgb 12.6, platelets 309, NA 133, CL 99, serum bicarb 29, BUN 17, CR 0.9, GLU 280, HA1C 8.3, LA 1.9, CRP 106.3, procalcitonin pending, HIV negative, beta hCG: Pending. I will repeat BMP, CBC, mag, CRP in a.m. Right shoulder abscess: ? Given Rocephin/vancomycin x 1 in emergency room. Will transition patient to vancomycin 1 g IV x 1 then pharmacy to dose, cefepime 1 g IV every 12, Flagyl 500 mg IV every 8. Blood cultures ordered in emergency room. Lactic acid 1.9. Admission CRP 106.3. Diabetes: ? Hemoglobin A1c 8.3 implying decent controlled diabetes. Medium dose sliding scale insulin scale ACHS Accu-Cheks. Lantus 40 units subcu BID. This is half of patient's home Lantus dosage, and may need to be increased during hospitalization. mood disorder: desvenlafaxine succinate 50mg PO daily, Ativan 1 mg p.o. every 12 as needed anxiety Insomnia trazodone 150 mg p.o. PRN nightly obesity: Recommend healthy eating habits hypertension: Losartan 100mg p.o. daily, hyperlipidemia: Atorvastatin 20 mg p.o. nightly HFpEF: As above in hypertension/hyperlipidemia section plus Lasix 20 mg IV daily as needed fluid, 10 mg IV hydralazine every 6 as needed SBP over 160. atrial fibrillation on Eliquis HFpEF: Hold Eliquis since patient may require I&D right axillary abscess in AM. Diltiazem 300 mg p.o. daily watch patient for signs of RVR during hospitalization on telemetry. tobacco user: Nicotine patch 21 mg transdermal every 24 as needed nicotine cravings. Patient states she stopped smoking decades ago. Patient's collaborates her story. PPx SCDs in preparation for potential right shoulder I&D CODE STATUS full FEN diabetic diet MDM Copa: Moderate. Patient suffering from right axillary abscess/cellulitis with systemic symptoms of weakness, pain, and malaise. Data: Moderate. See section above. Patient's acted as independent historian during my evaluation patient emergency room. I discussed case at length with the emergency room provider and we agreed patient required immediate admission for IV antibiotics and potential right shoulder I&D procedure by surgery within next 12-48 hours. Risk. Moderate. I made decision to admit patient to hospital due to risk of decompensation if discharged from emergency room with right axillary abscess. Prescription drug management as noted above including IV vancomycin, IV cefepime, IV Flagyl, IV Lasix, IV hydralazine. 35 minutes of total care time spent on patient by Dr. Snyder 03/18/2024.
--- NOTE | 2024-03-18 00:41 | PC.NURSE ---
Patient arrived to floor via wheelchair from ED at 00:36.
[2024-03-18 00:47] LABS: HCG Qualitative, Serum Negative (Negative)
[2024-03-18 01:06] LABS: Procalcitonin 0.112 ng/mL (0.0-2.0)
[2024-03-18] MEDS: MORPHINE 2MG/ML SYRINGE 2 MG IV ×2 (01:11→14:55)
[2024-03-18] MEDS: CEFEPIME HCL 1 GM in 0.9 % SODIUM CHLORIDE 50 ML IV ×2 (01:55→12:19)
[2024-03-18] MEDS: INSULIN GLARGINE 100 UNITS/ML 10ML VIAL 40 UNIT SUBCUT (02:15)
[2024-03-18] MEDS: METRONIDAZ/SOD CHL 500 MG/100 ML PIGGYBACK 100 MG IV ×3 (02:29→16:31)
[2024-03-18] MEDS: ONDANSETRON 4MG/2ML VIAL 4 MG IV (03:00)
[2024-03-18] MEDS: MORPHINE 4MG/ML SYRINGE 4 MG IV ×3 (03:01→19:38)
[2024-03-18] MEDS: LORazepam 1MG TABLET 1 MG PO (03:01)
[2024-03-18] MEDS: VANCOMYCIN HCL 2,500 MG in 0.9 % SODIUM CHLORIDE 500 ML 250 MG IV (03:32)
[2024-03-18] MEDS: VANCOMYCIN CONSULT REQUEST 1 EACH NOTAPPLIC (03:41)
[2024-03-18 03:46] LABS: POC Glucose,Bedside 292 (70-110)
[2024-03-18] MEDS: humaLOG 100 UNITS/ML 10ML VIAL (SSI) SUBCUT ×4 (05:22→21:04)
[2024-03-18 05:38] LABS: POC Glucose,Bedside 292 (70-110)
--- NOTE | 2024-03-18 05:46 | PC.WOUNDNOTE ---
left axilla area
[2024-03-18 07:15] LABS: Chloride 100 mmol/L (98-107); Sodium 130 mmol/L (136-145)
[2024-03-18 07:16] LABS: Potassium 4.6 mmoL/L (3.5-5.1)
[2024-03-18 07:18] LABS: Anion Gap 6.6 mEq/L (5-15); Blood Urea Nitrogen 20 mg/dl (7-17); Carbon Dioxide 28 mmol/L (22.0-30.0); Creatinine Clearance Estimated 58 mL/min (50-200); Estimated Glomerular Filt Rate 53 ml/min (>60); GFR (African American) 64 ML/MIN (>60)
[2024-03-18 07:19] LABS: Calcium 8.5 mg/dl (8.4-10.2); Glucose 288 mg/dl (74-100)
[2024-03-18 07:24] LABS: C-Reactive Protein 113.8 mg/L (0-4)
--- NOTE | 2024-03-18 07:38 | P.CONS_ITS ---
History of Present Illness *Admission Date: 03/18/24 *Reason for visit:: Left shoulder abscess *History of present illness: Patient is a 48-year-old female from [facility] with history of diabetes, coronary artery disease, atrial fibrillation on Eliquis, hypertension, gastroparesis, morbid obesity (BMI 52), hyperlipidemia, tobacco abuse, who presents to the emergency department in the late evening of 03/17/2024 with about a 3-day history right axillary pain described as a 10 out of 10 characterized as burning and stabbing. Evaluation in the emergency department revealed leukocytosis of 14,600, C-reactive protein 106.3, sed rate 48, glucose 288, hemoglobin A1c 8.3. Patient has apparently had history of complicated soft tissue infection secondary to diabetes including necrotizing fasciitis requiring right below-knee amputation in 2022. She underwent CT scan of the chest and shoulder which reveals intensely inflammatory left medial axillary focus suspicious for phlegmon/developing abscess. I have actually seen the patient and performed incision and drainage and debridement of right axillary abscess on 08/21/2022. [facility] Disclaimer: The information contained in this section may have been updated after the patient was seen, as this information can be updated by other users. Medical History (Updated 03/18/24 @ 03:55 by Jak Mcmanus RN) Below knee amputation Urinary tract infection Seizure disorder Fibromyalgia Cellulitis Pancreatitis History of gastroesophageal reflux (GERD) High blood pressure High cholesterol Afib Mood disorder CHF (congestive heart failure) Diabetes Tachycardia Surgical History History of cholecystectomy History of appendectomy History of section History of hysterectomy History of colonoscopy Family History Other Family history of cancer Family history of myocardial infarction Family history of stroke Social History Smoking Status: Current every day smoker tobacco type: cigarettes second hand exposure: Yes alcohol intake: former substance use type: denies use current occupational status: unemployed and disabled Travel in the last 8 weeks: None household members: spouse housing: house current occupational exposures/hazards: No caffeine: Yes Have you lived/traveled outside US in past 30 days?: No Contact w/someone who lives/traveled outside US past 30 days?: No Exposure to someone with infectious disease in past 14 days?: No Do you have a fever (greater than 100.4 F or 38 C)?: Yes Have you tested positive for COVID-19: No Exposed to someone with COVID-19 in past 14 days?: No Do you have a sore throat?: No Do you have a cough?: No Do you have any weakness?: Yes Do you have any diarrhea?: No Are you experiencing any unusual bleeding?: No Do you have any muscle aches/pain?: No Do you have any abdominal pain?: No Are you experiencing loss of taste or smell?: No Meds Home Medications and Allergies Home Medications ?Medication ?Instructions ?Recorded ?Confirmed ?Type insulin glargine 100 unit/mL (3 80 unit (0.8 mL) SQ BID #15 mL 07/31/23 03/18/24 Rx mL) subcutaneous pen (Lantus Solostar U-100 Insulin) spironolactone 50 mg tablet 50 mg PO BID PRN Fluid #60 tabs 07/31/23 03/18/24 Rx torsemide 20 mg tablet 40 mg (2 x 20 mg) PO DAILY PRN 07/31/23 03/18/24 Rx diuretic #60 tabs desvenlafaxine succinate 50 mg 50 mg PO DAILY #90 tabs 10/31/23 12/30/23 Rx tablet,extended release 24 hr (Pristiq) diltiazem HCl 300 mg 300 mg PO DAILY #90 caps 12/30/23 12/30/23 Rx capsule,extended release 24 hr dulaglutide 0.75 mg/0.5 mL 0.75 mg (0.5 mL) SQ WEEKLY #2.5 mL 12/30/23 12/30/23 Rx subcutaneous pen injector (Trulicity) losartan 100 mg tablet 100 mg PO DAILY #90 tabs 12/30/23 03/18/24 Rx apixaban 5 mg tablet 5 mg PO BID atrial fibrillation 30 02/03/24 03/18/24 Rx days #60 tabs hydralazine 50 mg tablet 50 mg PO TID #90 tabs 02/03/24 Rx trazodone 150 mg tablet 150 mg PO HS #90 tabs 02/03/24 03/18/24 Rx gabapentin 300 mg capsule 300 mg PO TID #90 caps 02/13/24 03/18/24 Rx fluticasone propionate 50 2 spray intranasal DAILY PRN nasal 03/09/24 03/18/24 Rx mcg/actuation nasal congestion #16 grams spray,suspension sulfamethoxazole 800 1 tab PO BID #20 tabs 03/11/24 Rx mg-trimethoprim 160 mg tablet (Bactrim DS) cariprazine 3 mg capsule (Vraylar) 3 mg PO DAILY 03/18/24 03/18/24 History hydrocodone 5 mg-acetaminophen 325 1 tab PO TIDP PRN pain 03/18/24 03/18/24 History mg tablet hydroxyzine HCl 25 mg tablet 25 mg PO Q6HP PRN anxiety 03/18/24 03/18/24 History insulin aspart U-100 100 unit/mL 30 unit SQ DIRECTED 03/18/24 03/18/24 History (3 mL) subcutaneous pen New Prescriptions to Start Prescriptions: Allergies Allergy/AdvReac Type Severity Reaction Status Date / Time No Known Allergies Allergy Verified 12/30/23 15:19 Exam (Inpt) Vital signs and Labs for Last 24 Hours: Temp Pulse Resp BP Pulse Ox O2 Del Method 98.9 F 102 H 20 160/60 H 92 L Room Air 03/18/24 03:51 03/18/24 03:51 03/18/24 03:51 03/18/24 03:51 03/18/24 03:51 03/18/24 06:58 Laboratory Results - last 24 hr 03/17/24 00:01: Procalcitonin 0.112, Serum HCG, Qual Negative 03/17/24 21:32: WBC 14.6 H, RBC 4.58, Hgb 12.6, Hct 38.3, MCV 83.6, MCH 27.5, MCHC 32.9, RDW 13.9, Plt Count 309, MPV 9.6, Neut % (Auto) 82.5 H, Lymph % (Auto) 8.6 L, [place] % (Auto) 6.5, Eos % (Auto) 1.5, Baso % (Auto) 0.3, Neut # (Auto) 12.0 H, Lymph # (Auto) 1.3, [place] # (Auto) 1.0, Eos # (Auto) 0.2, Baso # (Auto) 0.0, ESR 48 H, Sodium 133 L, Potassium 4.5, Chloride 99, Carbon Dioxide 29, Anion Gap 9.5, BUN 17, Creatinine 0.90, Estimated Creat Clear 74, Estimated GFR 67, Est GFR ( Amer) 81, Glucose 280 H, Hemoglobin A1c 8.3 H, Lactate 1.9, Calcium 9.2, Total Bilirubin 0.6, AST 26, ALT 23, Alkaline Phosphatase 98, C-Reactive Protein 106.3 H, Total Protein 7.2, Albumin 3.7, Globulin 3.5 H, Albumin/Globulin Ratio 1.1, HIV Ag/Ab Combo Qual Negative 03/18/24 02:03: POC Glucose 292 H 03/18/24 05:21: POC Glucose 292 H 03/18/24 06:55: Sodium 130 L, Potassium 4.6, Chloride 100, Carbon Dioxide 28, Anion Gap 6.6, BUN 20 H, Creatinine 1.10 H D, Estimated Creat Clear 58, E stimated GFR 53 L, Est GFR ( Amer) 64 D, Glucose 288 H, Calcium 8.5, Magnesium 2.0, C-Reactive Protein 113.8 H I & O for Labs for Last 24 Hours: Intake & Output 03/15/24 03/16/24 03/17/24 03/18/24 11:59 11:59 11:59 11:59 Output Total 0 / 0 Balance 0 / 0 Weight 330 lb 1.6 oz Constitutional: no acute distress and morbidly obese Head: Present normocephalic Respiratory: Present CTA bilaterally GI: Present soft Comment:: Patient has some appreciable swelling left anterior axilla with intense redness and induration with blanching erythema. Results Labs 03/17/24 21:32 03/18/24 06:55 Labs: Laboratory Results - last 24 hr 03/17/24 00:01: Procalcitonin 0.112, Serum HCG, Qual Negative 03/17/24 21:32: WBC 14.6 H, RBC 4.58, Hgb 12.6, Hct 38.3, MCV 83.6, MCH 27.5, MCHC 32.9, RDW 13.9, Plt Count 309, MPV 9.6, Neut % (Auto) 82.5 H, Lymph % (Auto) 8.6 L, [place] % (Auto) 6.5, Eos % (Auto) 1.5, Baso % (Auto) 0.3, Neut # (Auto) 12.0 H, Lymph # (Auto) 1.3, [place] # (Auto) 1.0, Eos # (Auto) 0.2, Baso # (Auto) 0.0, ESR 48 H, Sodium 133 L, Potassium 4.5, Chloride 99, Carbon Dioxide 29, Anion Gap 9.5, BUN 17, Creatinine 0.90, Estimated Creat Clear 74, Estimated GFR 67, Est GFR ( Amer) 81, Glucose 280 H, Hemoglobin A1c 8.3 H, Lactate 1.9, Calcium 9.2, Total Bilirubin 0.6, AST 26, ALT 23, Alkaline Phosphatase 98, C-Reactive Protein 106.3 H, Total Protein 7.2, Albumin 3.7, Globulin 3.5 H, Albumin/Globulin Ratio 1.1, HIV Ag/Ab Combo Qual Negative 03/18/24 02:03: POC Glucose 292 H 03/18/24 05:21: POC Glucose 292 H 03/18/24 06:55: Sodium 130 L, Potassium 4.6, Chloride 100, Carbon Dioxide 28, Anion Gap 6.6, BUN 20 H, Creatinine 1.10 H D, Estimated Creat Clear 58, E stimated GFR 53 L, Est GFR ( Amer) 64 D, Glucose 288 H, Calcium 8.5, Magnesium 2.0, C-Reactive Protein 113.8 H Assessment and Plan *Assessment and plan (1) Abscess of axilla, left: Status: Acute Category: Medical Code(s): L02.412 - Cutaneous abscess of left axilla Plan Patient needs incision and drainage. I will discuss with anesthesia and make arrangements.
[2024-03-18 07:55] LABS: Hematocrit 35.3 % (37.0-47.0); Hemoglobin 11.4 g/dL (12.2-16.2); Mean Corpuscular Volume 85.5 fl (81-99); Red Blood Count 4.13 M/mm3 (4.20-5.40); White Blood Count 17.9 K/mm3 (4.8-10.8)
[2024-03-18 07:56] LABS: Basophils % 0.4 % (0.1-2.0); Eosinophils # 0.2 K/mm3 (0.0-0.4); Eosinophils % 1.1 % (0.1-12.0); Lymphocytes # 1.6 K/mm3 (0.7-4.5); Lymphocytes % 9.1 % (10-50); Mean Corpuscular HGB Conc 32.3 g/dL (31.8-35.4); Mean Corpuscular Hemoglobin 27.6 pg (27.0-31.2); Mean Platelet Volume 9.6 fl (7.4-10.4); Monocytes # 1.5 K/mm3 (0.1-1.0); Monocytes % 8.4 % (1.7-9.3); Neutrophils # 14.3 K/mm3 (1.8-7.8); Neutrophils % 80.2 % (37.0-80.0); Platelet Count 327 K/mm3 (142-424); Red Cell Distribution Width 13.9 % (11.5-17.5)
[2024-03-18 07:57] LABS: Basophils # 0.1 K/mm3 (0-0.2)
[2024-03-18 07:58] LABS: MANUAL DIFFERENTIAL MANUAL DIFFERENTIAL (MANUAL DIFF)
--- NOTE | 2024-03-18 08:07 | HMH.PHAINT1 ---
Pharmacy Intervention Comments: Home medication list verified using list from outpatient pharmacy
[2024-03-18] MEDS: LIDOCAINE 1% 20ML MDV 20 ML (09:18)
[2024-03-18] MEDS: ROPIVACAINE 0.5% 30ML VIAL 150 MG (09:23)
[2024-03-18] MEDS: CLINDAMYCIN PHOSPHATE/D5W 900 MG/50 ML PIGGYBACK 50 MG (09:25)
--- NOTE | 2024-03-18 09:39 | P.OP_ITS ---
Date of procedure: 03/18/24 Pre-op Diagnosis:: Left axillary abscess Post-op Diagnosis:: Same Procedure performed:: Incision and drainage of complex deep left axillary abscess Surgeon:: Luther Muhammad MD BUSINESS SERVICES MANAGER:: Efrain Patel Anesthesia: LMA Estimated blood loss (mL): 10 Operative findings:: She had a moderately large deep left anterior axillary abscess containing a large amount of thick foul pus Operative note:: Consent was obtained patient was taken the operating room. She was maintained on the hospital bed. The area was positioned and prepped and draped in the standard surgical fashion. Attempt was made at injection of local anesthesia at the site of most intense fluctuance. However upon aspiration after needle insertion there was pus aspirated. Small incision was made with electrocautery. There was a very large amount of thick foul pus which poured and exuded from the wound. This was sent for culture. Wound was probed bluntly digitally and any loculations were freed. The incision was opened somewhat to allow exposure of abscess pocket and full evacuation. Wound was irrigated with saline. There was some general oozing and hemostasis was achieved with electrocautery. Due to the inflammatory nature and the patient being on anticoagulants there was some mild oozing. Surgicel powder was placed throughout the wound bed which resulted in good hemostasis. Wound was packed with portion of dry Kerlix gauze and covered with clean dry sterile dressing. Condition: stable Disposition: PACU Complications:: None immediate
--- NOTE | 2024-03-18 09:42 | P.PNANES_ITS ---
[facility] Disclaimer: The information contained in this section may have been updated after the patient was seen, as this information can be updated by other users. Medical History (Updated 03/18/24 @ 03:55 by Jak Mcmanus RN) Below knee amputation Urinary tract infection Seizure disorder Fibromyalgia Cellulitis Pancreatitis History of gastroesophageal reflux (GERD) High blood pressure High cholesterol Afib Mood disorder CHF (congestive heart failure) Diabetes Tachycardia Surgical History History of cholecystectomy History of appendectomy History of section History of hysterectomy History of colonoscopy Family History Other Family history of cancer Family history of myocardial infarction Family history of stroke Social History Smoking Status: Current every day smoker tobacco type: cigarettes second hand exposure: Yes alcohol intake: former substance use type: denies use current occupational status: unemployed and disabled Travel in the last 8 weeks: None household members: spouse housing: house current occupational exposures/hazards: No caffeine: Yes Have you lived/traveled outside US in past 30 days?: No Contact w/someone who lives/traveled outside US past 30 days?: No Exposure to someone with infectious disease in past 14 days?: No Do you have a fever (greater than 100.4 F or 38 C)?: Yes Have you tested positive for COVID-19: No Exposed to someone with COVID-19 in past 14 days?: No Do you have a sore throat?: No Do you have a cough?: No Do you have any weakness?: Yes Do you have any diarrhea?: No Are you experiencing any unusual bleeding?: No Do you have any muscle aches/pain?: No Do you have any abdominal pain?: No Are you experiencing loss of taste or smell?: No [facility] Anesthesia Checklist Patient Identification Patient Identification: Verbal (Name & ) Structural Data Admitted From: Inpatient Planned Operative Procedure/s: i/d l axilla Consent for Planned Operative Procedure(s) Verified: Yes NPO Status Verified Time NPO: 03:00 Additional verifications Anesthesia Reactions: No Hx Blood Transfusions: No Blood Transfusion Reaction: No Airway Assessment Mallampati Score:: Class II C-Spine Mobility Assessed: Yes TMJ Mobility Assessed: Yes Dentition: Good Dentition Neurological Assessment Level of Consciousness: Awake, Alert and Appropriate Anesthesia Plan Anesthesia Risk discussed: Yes Anesthesia Plan: Verified ASA Class: III Anesthesia Type: General
--- NOTE | 2024-03-18 09:43 | EXP.ANES.I ---
[facility] Anesthesia Record Part I Anesthesia Record I Intake, IV Amount: 500 Hydration: Adequate Estimated blood loss (mL): 20 Urine output (mL): 0 Blood Pressure: 85/50 SaO2: 96 Pulse Rate: 81 Airway Patency: Patent Respiratory Rate: 12 Temperature: 97.7 F Patient is:: Drowsy and Stable Stable to PACU at:: 09:30
[2024-03-18 12:06] LABS: Lymphocytes % 16 % (10-50); Monocytes % 1 % (2-9); Neutrophils % 81 % (42-76); Platelet Estimate Normal; RBC Morphology Normal; Total Cells Counted 100
[2024-03-18 16:32] LABS: POC Glucose,Bedside 366 (70-110)
--- NOTE | 2024-03-18 17:21 | PC.NURSE ---
Pt had I&D of left axilla today. Dressing C/D/I. Pt c/o of pain in left axilla and has been medicated per MAR. VSS. Pt on RA. at bedside. Pt is alert and oriented. she has been incontinent most of shift of bowel and bladder. Purewick in place. tolerating meals. Call light in reach.
[2024-03-18] MEDS: ATORVASTATIN 20MG TABLET 20 MG PO (21:03)
[2024-03-18] MEDS: INSULIN GLARGINE 100 UNITS/ML 10ML VIAL 60 UNIT SUBCUT (21:03)
[2024-03-18 22:56] LABS: POC Glucose,Bedside 269 (70-110)
[2024-03-19] VITALS (16 sets, daily range): BP systolic 122–161; BP diastolic 51–80; PULSE 71–118; RESP 16–20; TEMP 36.3–37.1; O2SAT 92–100; BMI 50.3
[2024-03-19] MEDS: CEFEPIME HCL 1 GM in 0.9 % SODIUM CHLORIDE 50 ML IV ×2 (00:13→12:19)
[2024-03-19] MEDS: MORPHINE 4MG/ML SYRINGE 4 MG IV ×4 (00:13→16:47)
[2024-03-19] MEDS: METRONIDAZ/SOD CHL 500 MG/100 ML PIGGYBACK 100 MG IV ×3 (00:48→16:39)
--- NOTE | 2024-03-19 04:43 | PC.NURSE ---
48 yo fe pt admitted due to left axillary abscess. pt is A/O X 4. She is using purwick due to incont. Pt has had right BKA in the past. SUrgical dressing C/D/I under left arm. She has complained of pain throughout shift, medicated with morphine per MAR X 3 which pt reported as effective. FSBS 269 at 9 pm, insulin given per MAY. VS have been WNL for pt.
[2024-03-19] MEDS: humaLOG 100 UNITS/ML 10ML VIAL (SSI) SUBCUT ×4 (06:05→20:30)
[2024-03-19 06:20] LABS: POC Glucose,Bedside 252 (70-110)
[2024-03-19 06:53] LABS: Chloride 102 mmol/L (98-107); Potassium 4.9 mmoL/L (3.5-5.1); Sodium 132 mmol/L (136-145)
[2024-03-19 06:56] LABS: Anion Gap 4.9 mEq/L (5-15); Blood Urea Nitrogen 24 mg/dl (7-17); Carbon Dioxide 30 mmol/L (22.0-30.0); Creatinine Clearance Estimated 58 mL/min (50-200); Estimated Glomerular Filt Rate 53 ml/min (>60); GFR (African American) 64 ML/MIN (>60)
[2024-03-19 06:57] LABS: Calcium 8.8 mg/dl (8.4-10.2); Glucose 250 mg/dl (74-100); Magnesium 2.3 mg/dl (1.6-2.3)
[2024-03-19 07:19] LABS: Hematocrit 34.9 % (37.0-47.0); Hemoglobin 11.1 g/dL (12.2-16.2); Mean Corpuscular Volume 86.2 fl (81-99); Red Blood Count 4.05 M/mm3 (4.20-5.40); White Blood Count 12.4 K/mm3 (4.8-10.8)
[2024-03-19 07:20] LABS: Basophils # 0.1 K/mm3 (0-0.2); Basophils % 0.4 % (0.1-2.0); Eosinophils # 0.5 K/mm3 (0.0-0.4); Eosinophils % 3.8 % (0.1-12.0); Lymphocytes # 1.5 K/mm3 (0.7-4.5); Lymphocytes % 12.2 % (10-50); Mean Corpuscular HGB Conc 31.8 g/dL (31.8-35.4); Mean Corpuscular Hemoglobin 27.4 pg (27.0-31.2); Mean Platelet Volume 9.6 fl (7.4-10.4); Monocytes # 0.8 K/mm3 (0.1-1.0); Neutrophils # 9.5 K/mm3 (1.8-7.8); Neutrophils % 76.9 % (37.0-80.0); Platelet Count 317 K/mm3 (142-424); Red Cell Distribution Width 14.2 % (11.5-17.5)
[2024-03-19 07:54] LABS: C-Reactive Protein 154.2 mg/L (0-4)
[2024-03-19] MEDS: MORPHINE 2MG/ML SYRINGE 2 MG IV ×3 (07:55→21:54)
--- NOTE | 2024-03-19 08:05 | EXP.SURG.PN ---
Subjective Narrative: Patient complains of pain at surgical site. Exam Data for Last 24 hours Vital signs and Labs for Last 24 Hours: Temp Pulse Resp BP Pulse Ox O2 Del Method 98.1 F 79 16 136/72 94 L Room Air 03/19/24 03:47 03/19/24 03:47 03/19/24 03:47 03/19/24 03:47 03/19/24 03:47 03/19/24 06:55 Laboratory Results - last 24 hr 03/18/24 06:55: Total Counted 100, Neutrophils % (Manual) 81 H, Lymphocytes % (Manual) 16, Atypical Lymphs % 2.0, Monocytes % (Manual) 1 L, Platelet Estimate Normal, RBC Morphology Normal 03/18/24 16:24: POC Glucose 366 H* 03/18/24 20:54: POC Glucose 269 H 03/19/24 06:04: POC Glucose 252 H 03/19/24 06:05: WBC 12.4 H D, RBC 4.05 L, Hgb 11.1 L, Hct 34.9 L, MCV 86.2, MCH 27.4, MCHC 31.8, RDW 14.2, Plt Count 317, MPV 9.6, Neut % (Auto) 76.9, Lymph % (Auto) 12.2, [place] % (Auto) 6.0, Eos % (Auto) 3.8, Baso % (Auto) 0.4, Neut # (Auto) 9.5 H, Lymph # (Auto) 1.5, [place] # (Auto) 0.8, Eos # (Auto) 0.5 H, Baso # (Auto) 0.1, Sodium 132 L, Potassium 4.9, Chloride 102, Carbon Dioxide 30, Anion Gap 4.9 L, BUN 24 H, Creatinine 1.10 H, Estimated Creat Clear 58, Estimated GFR 53 L, Est GFR ( Amer) 64, Glucose 250 H, Calcium 8.8, Magnesium 2.3 D, C-Reactive Protein 154.2 H I & O for Last 24 hours: Intake & Output 03/16/24 03/17/24 03/18/24 03/19/24 11:59 11:59 11:59 11:59 Intake Total 500 / 500 960 / 960 Output Total 0 / 0 550 / 550 Balance 500 / 500 410 / 410 Weight 330 lb 1.6 oz 321 lb 1.6 oz Microbiology Reports for the Last 24 Hours: Microbiology 03/17/24 22:10 Blood Blood Culture - Preliminary NO GROWTH AFTER 24 HOURS 03/17/24 21:32 Blood Blood Culture - Preliminary NO GROWTH AFTER 24 HOURS 03/18/24 09:12 Axilla,Left Gram Stain - Final *Routine Skin Exam Comments: Still with quite significant erythema with intense induration and tenderness. Progress Note: A&P Assessment and plan (1) Abscess of axilla, left: Status: Acute Assessment and plan: Attempt was made at dressing change at the bedside after administration of IV morphine. With minimal manipulation of the dressing patient had significant pain. Patient will not tolerate full dressing change at this time without sedation anesthesia. Also concerning with the persistent erythema and induration. I will see if arrangements can be made for wound washout and possible additional debridement with dressing change under anesthesia.
[2024-03-19] MEDS: VENLAFAXINE XR 75MG CAPSULE 75 MG PO (08:23)
[2024-03-19] MEDS: IRBESARTAN 150MG TAB 150 MG PO (08:23)
[2024-03-19] MEDS: dilTIAZem ER 180 MG CAPSULE PO (08:24)
[2024-03-19] MEDS: dilTIAZem ER 120MG CAPSULE 120 MG PO (08:24)
[2024-03-19] MEDS: INSULIN GLARGINE 100 UNITS/ML 10ML VIAL 70 UNIT SUBCUT ×2 (08:26→20:28)
[2024-03-19 11:08] LABS: POC Glucose,Bedside 258 (70-110)
--- NOTE | 2024-03-19 11:12 | P.CONPHA_ITS ---
Pharmacy Consult Date: 03/19/24 Time: 11:12 Referring provider: DR. RICE Reason for Consult:: VANCOMYCIN DOSING Allergies Allergy/AdvReac Type Severity Reaction Status Date / Time No Known Allergies Allergy Verified 12/30/23 15:19 Home Medications ?Medication ?Instructions ?Recorded ?Confirmed ?Type insulin glargine 100 unit/mL (3 80 unit (0.8 mL) SQ BID #15 mL 07/31/23 03/18/24 Rx mL) subcutaneous pen (Lantus Solostar U-100 Insulin) spironolactone 50 mg tablet 50 mg PO BID PRN Fluid #60 tabs 07/31/23 03/18/24 Rx torsemide 20 mg tablet 40 mg (2 x 20 mg) PO DAILY PRN 07/31/23 03/18/24 Rx diuretic #60 tabs desvenlafaxine succinate 50 mg 50 mg PO DAILY #90 tabs 10/31/23 03/18/24 Rx tablet,extended release 24 hr (Pristiq) diltiazem HCl 300 mg 300 mg PO DAILY #90 caps 12/30/23 03/18/24 Rx capsule,extended release 24 hr dulaglutide 0.75 mg/0.5 mL 0.75 mg (0.5 mL) SQ WEEKLY #2.5 mL 12/30/23 03/18/24 Rx subcutaneous pen injector (Trulicity) losartan 100 mg tablet 100 mg PO DAILY #90 tabs 12/30/23 03/18/24 Rx apixaban 5 mg tablet 5 mg PO BID atrial fibrillation 30 02/03/24 03/18/24 Rx days #60 tabs hydralazine 50 mg tablet 50 mg PO TID #90 tabs 02/03/24 03/18/24 Rx trazodone 150 mg tablet 150 mg PO HS #90 tabs 02/03/24 03/18/24 Rx gabapentin 300 mg capsule 300 mg PO TID #90 caps 02/13/24 03/18/24 Rx fluticasone propionate 50 2 spray intranasal DAILY PRN nasal 03/09/24 03/18/24 Rx mcg/actuation nasal congestion #16 grams spray,suspension sulfamethoxazole 800 1 tab PO BID #20 tabs 03/11/24 03/18/24 Rx mg-trimethoprim 160 mg tablet (Bactrim DS) cariprazine 3 mg capsule (Vraylar) 3 mg PO DAILY 03/18/24 03/18/24 History hydrocodone 5 mg-acetaminophen 325 1 tab PO TIDP PRN pain 03/18/24 03/18/24 History mg tablet hydroxyzine HCl 25 mg tablet 25 mg PO Q6HP PRN anxiety 03/18/24 03/18/24 History insulin aspart U-100 100 unit/mL 30 unit SQ DIRECTED 03/18/24 03/18/24 H istory (3 mL) subcutaneous pen New Prescriptions to Start Prescriptions: Height: 1.7 m Weight: 145.649 kg Laboratory Results:: Laboratory Results - last 24 hr 03/18/24 06:55: Total Counted 100, Neutrophils % (Manual) 81 H, Lymphocytes % (Manual) 16, Atypical Lymphs % 2.0, Monocytes % (Manual) 1 L, Platelet Estimate Normal, RBC Morphology Normal 03/18/24 16:24: POC Glucose 366 H* 03/18/24 20:54: POC Glucose 269 H 03/19/24 06:04: POC Glucose 252 H 03/19/24 06:05: WBC 12.4 H D, RBC 4.05 L, Hgb 11.1 L, Hct 34.9 L, MCV 86.2, MCH 27.4, MCHC 31.8, RDW 14.2, Plt Count 317, MPV 9.6, Neut % (Auto) 76.9, Lymph % (Auto) 12.2, [place] % (Auto) 6.0, Eos % (Auto) 3.8, Baso % (Auto) 0.4, Neut # (Auto) 9.5 H, Lymph # (Auto) 1.5, [place] # (Auto) 0.8, Eos # (Auto) 0.5 H, Baso # (Auto) 0.1, Sodium 132 L, Potassium 4.9, Chloride 102, Carbon Dioxide 30, Anion Gap 4.9 L, BUN 24 H, Creatinine 1.10 H, Estimated Creat Clear 58, Estimated GFR 53 L, Est GFR ( Amer) 64, Glucose 250 H, Calcium 8.8, Magnesium 2.3 D, C-Reactive Protein 154.2 H 03/19/24 10:53: POC Glucose 258 H Medical History: Medical History (Updated 03/18/24 @ 03:55 by Jak Mcmanus RN) Below knee amputation Urinary tract infection Seizure disorder Fibromyalgia Cellulitis Pancreatitis History of gastroesophageal reflux (GERD) High blood pressure High cholesterol Afib Mood disorder CHF (congestive heart failure) Diabetes Tachycardia Assessment and Plan Assessment and plan all Dx Assessment and Plan for all problems:: Pharmacokinetic dosing service Objective: Patient: Floor: Age: 48 yo Serum creatinine: 1.10 mg/dL Height: 66.9 Inches Weight (kg): 145.6 Assessment: IBW (kg): 61.37 Dosing wt(kg): 145.6 Estimated Creatinine clearance (ml/min): 59.9 CRCL method: Cockcroft and Gault using ibw(default). Drug selected: Vancomycin Loading dose (mg): Vd (liters): 116.5 (factor used: 0.8 L/kg) Khari (hr-1): 0.054 Half life (hrs): 12.84 CLvanco=?? 6.291 L/hr Recommended dose: 2500 mg Interval: 18 hrs Infusion time (hrs): 2.0 Predicted peak (mcg/mL): 32.7 Predicted trough (mcg/mL): 13.78 Total body weight is being used for vancomycin dosing. Recommendations: Give Vancomycin 2500 mg q 18 hrs with an expected Cpeak of 32.7 mcg/ml and an expected Ctrough of 13.78 mcg/ml AUC 0-24 /MALACHI Data: MALACHI 0.5 mcg/mL:?? AUC/MALACHI:? 1059.7 MALACHI 1.0 mcg/mL:?? AUC/MALACHI:? 529.9 --------- MALACHI 1.5 mcg/mL:?? AUC/MALACHI:? 353.2 MALACHI 2.0 mcg/mL:?? AUC/MALACHI:? 264.9 Thank you for the consult, will continue to follow. -GIOVANI KOROMA, PHARMD
[2024-03-19] MEDS: humaLOG 100 UNITS/ML 10ML VIAL (SSI) 10 UNIT SUBCUT ×2 (11:25→16:40)
--- NOTE | 2024-03-19 14:59 | P.OP_ITS ---
Date of procedure: 03/19/24 Pre-op Diagnosis:: Soft tissue infection of the left axilla Post-op Diagnosis:: Same Procedure performed:: Wound washout debridement subcutaneous tissues and dressing change Surgeon:: Luther Muhammad MD COUNTER PROFESSIONAL:: Chemo Mckay Anesthesia: LMA Estimated blood loss (mL): 20 Clinical Note:: Patient is a 48-year-old female with history of diabetes, coronary artery disease, atrial fibrillation on Eliquis, hypertension, gastroparesis, hyperlipidemia, BMI 52. She had presented to the emergency department in the late evening of 03/17/2024 with a 3-day history of left axillary pain described as a 10 out of 10 and characterized as burning and stabbing. She had undergone CT scan of the chest and shoulder which revealed intensely inflammatory left medial axillary focus suspicious for phlegmon/developing abscess. She was admitted for inpatient management and taken to the operating room in the morning of 03/18/2024. She underwent incision and drainage of complex left axillary abscess at which time a large amount of thick foul pus was evacuated from the wound. It was packed with Kerlix gauze. The following morning after administration of intravenous morphine attempt was made at dressing change. However, with minimal manipulation of the dressing patient had uncontrollable pain. There was noted to be some ongoing induration and erythema. Therefore plan was made to proceed with wound change and washout with possible additional debridement under anesthesia. Possible drain placement as opposed to packing the wound due to the patient's intolerance of packing was considered. As she had eaten breakfast this was scheduled for later in the day. . Operative findings:: She had some focal necrosis of the underlying subcutaneous tissues however there was some undermining anterior medially where the site of induration was and this was opened up bluntly. Operative note:: Consent was obtained patient was taken the operating room. She was positioned supine position. General anesthesia was induced via LMA. The area was positioned and prepped and draped in standard surgical fashion. Prior to prepping the previous packing was removed. There was some purulent drainage with doing so. Wound was bluntly probed with digital palpation. With finger fracture technique indurated tissues were opened allowing evacuation of some pu rulent inflamed material medially at the site of induration and erythema. Some gangrenous subcutaneous tissue was debrided mostly using some blunt technique. Hemostasis was achieved with electrocautery. Wound including the opened pocket was irrigated with about 5 L of pulsatile saline irrigation using the HubHuman InterPulse device. There appeared to be good hemostasis. Due to the inflammation and tracking anteriorly as well as some minimal tracking laterally this was felt to be not amenable to placement of [place] type drain. Wound was thoroughly packed with saline moistened Kerlix gauze and covered with clean dry sterile dressing. Condition: stable Disposition: PACU Complications:: None immediately apparent
--- NOTE | 2024-03-19 15:14 | EXP.ACUTE.PN ---
Subjective *Date: 03/19/24 *Time: 21:59 Interval history: Still having pain in the left axilla. Afebrile overnight. White count improving but still elevated. Tolerating p.o. intake. Stable on room air. No nausea or vomiting. Will go back to the OR later today. Medical Exam Vital signs and Labs for Last 24 Hours: Vital Signs Temp Pulse Resp BP Pulse Ox O2 Del Method 03/19/24 11:00 Room Air 03/19/24 09:00 Room Air 03/19/24 08:00 Room Air 03/19/24 08:00 98.7 F 85 16 125/72 92 L Room Air 03/19/24 06:55 Room Air 03/19/24 05:00 Room Air 03/19/24 03:47 98.1 F 79 16 136/72 94 L Room Air 03/19/24 03:00 Room Air 03/19/24 01:00 Room Air 03/19/24 00:00 98.2 F 82 18 153/68 H 99 Room Air 03/18/24 23:00 Room Air 03/18/24 21:00 Room Air 03/18/24 20:00 Room Air 03/18/24 18:25 Room Air 03/18/24 17:00 Room Air 03/18/24 16:45 98.2 F 87 20 140/75 92 L Room Air 03/18/24 15:45 90 18 160/79 H 90 L Room Air Intake and Output 03/18/24 03/19/24 03/19/24 23:59 07:59 15:59 Intake Total 480 / 1460 360 / 360 Output Total 550 / 550 Balance 480 / 1160 -550 / -190 360 / -190 Intake: Intake, Oral Amount 480 / 960 360 / 360 Output: Output, Urine Amount 550 / 550 Other: Weight 145.649 kg 145.649 kg Patient Weight 03/19/24 23:59 Weight 145.649 kg Laboratory Results - last 24 hr 03/18/24 16:24: POC Glucose 366 H* 03/18/24 20:54: POC Glucose 269 H 03/19/24 06:04: POC Glucose 252 H 03/19/24 06:05: WBC 12.4 H D, RBC 4.05 L, Hgb 11.1 L, Hct 34.9 L, MCV 86.2, MCH 27.4, MCHC 31.8, RDW 14.2, Plt Count 317, MPV 9.6, Neut % (Auto) 76.9, Lymph % (Auto) 12.2, [place] % (Auto) 6.0, Eos % (Auto) 3.8, Baso % (Auto) 0.4, Neut # (Auto) 9.5 H, Lymph # (Auto) 1.5, [place] # (Auto) 0.8, Eos # (Auto) 0.5 H, Baso # (Auto) 0.1, Sodium 132 L, Potassium 4.9, Chloride 102, Carbon Dioxide 30, Anion Gap 4.9 L, BUN 24 H, Creatinine 1.10 H, Estimated Creat Clear 58, Estimated GFR 53 L, Est GFR ( Amer) 64, Glucose 250 H, Calcium 8.8, Magnesium 2.3 D, C-Reactive Protein 154.2 H 03/19/24 10:53: POC Glucose 258 H I & O for Labs for Last 24 Hours: Intake & Output 03/16/24 03/17/24 03/18/24 03/19/24 23:59 23:59 23:59 23:59 Intake Total 1460 / 1460 360 / 360 Output Total 0 / 300 550 / 550 Balance 1460 / 1160 -190 / -190 Weight 136.078 kg 149.731 kg 145.649 kg Microbiology Reports for the Last 24 Hours: Microbiology 03/18/24 09:12 Axilla,Left Gram Stain - Final 03/18/24 09:12 Axilla,Left Abscess Culture - Preliminary Gram Positive Cocci 03/17/24 22:10 Blood Blood Culture - Preliminary NO GROWTH AFTER 24 HOURS 03/17/24 21:32 Blood Blood Culture - Preliminary NO GROWTH AFTER 24 HOURS Constitutional: Present no acute distress, morbidly obese, chronically ill appearing and cooperative Head: Present atraumatic and normocephalic ENT: Present normal exam Respiratory: Present normal respiratory effort; Absent rhonchi, wheezes or crackles Cardiac: Present Reg Rate and Rhythm GI: Present soft and normal bowel sounds; Absent distention or tenderness Extremities: Present full ROM Comment:: Erythema in left axilla, warm to touch, tender to palpation; right BKA Skin: Present intact; Absent erythema Neuro: Present Grossly Intact, alert, awake, oriented x 3 and moves all extremities Assessment and Plan *Assessment and plan (1) Sepsis due to cellulitis: Status: Acute Category: Medical Code(s): L03.90 - Cellulitis, unspecified; A41.9 - Sepsis, unspecified organism (2) Abscess of axilla, left: Status: Acute Category: Medical Code(s): L02.412 - Cutaneous abscess of left axilla (3) General weakness: Status: Acute Category: Medical Code(s): R53.1 - Weakness (4) Afib: Status: Acute Category: Medical Code(s): I48.91 - Unspecified atrial fibrillation (5) Mood disorder: Status: Acute Category: Medical Code(s): F39 - Unspecified mood [affective] disorder (6) Diabetes mellitus: Status: Chronic Qualifiers: Diabetes mellitus type: type 2 Diabetes mellitus senior care insulin use: unspecified senior care insulin use status Diabetes mellitus complication status: with other specified complication Qualified Code(s): E11.69 - Type 2 diabetes mellitus with other specified complication Category: Medical Code(s): E11.9 - Type 2 diabetes mellitus without complications (7) CAD (coronary artery disease): Status: Acute Qualifiers: Coronary Disease-Associated Artery/Lesion type: [place] artery [place] vs. transplanted heart: [place] heart Associated angina: without angina Qualified Code(s): I25.10 - Atherosclerotic heart disease of [place] coronary artery without angina pectoris Category: Medical Code(s): I25.10 - Atherosclerotic heart disease of [place] coronary artery without angina pectoris (8) (HFpEF) heart failure with preserved ejection fraction: Status: Chronic Qualifiers: Heart failure chronicity: acute on chronic Qualified Code(s): I50.33 - Acute on chronic diastolic (congestive) heart failure Category: Medical Code(s): I50.30 - Unspecified diastolic (congestive) heart failure (9) Morbid obesity: Status: Chronic Category: Medical Code(s): E66.01 - Morbid (severe) obesity due to excess calories (10) Malignant hypertension: Status: Chronic Category: Medical Code(s): I10 - Essential (primary) hypertension (11) HLD (hyperlipidemia): Status: Chronic Qualifiers: Hyperlipidemia type: mixed hyperlipidemia Qualified Code(s): E78.2 - Mixed hyperlipidemia Category: Medical Code(s): E78.5 - Hyperlipidemia, unspecified (12) HHD (hypertensive heart disease): Status: Chronic Qualifiers: Heart failure presence: without heart failure Qualified Code(s): I11.9 - Hypertensive heart disease without heart failure Category: Medical Code(s): I11.9 - Hypertensive heart disease without heart failure (13) Hypertensive urgency: Status: Resolved Category: Medical Code(s): I16.0 - Hypertensive urgency (14) PAF (paroxysmal atrial fibrillation): Status: Chronic Category: Medical Code(s): I48.0 - Paroxysmal atrial fibrillation Plan 48-year-old with past medical history of diabetes, mood disorder, obesity, hypertension, hyperlipidemia, CAD, atrial fibrillation on Eliquis HFpEF, tobacco user. Patient presents with 2 to 3 days right axillary pain and potential right axillary abscess noted on CT chest/shoulder. WBC 14.6, LA 1.9, CRP 106.3. Procalcitonin pending at time of admission. Taken for I&D yesterday, plan for repeat I&D today. Continues to require patient management. Problems addressed as follows: Right shoulder abscess: ?Continue broad-spectrum antibiotics with cefepime 1 g IV twice daily and vancomycin IV daily -Swab showing gram-positive cocci -Discussed case with surgery, repeat I&D today. Will attempt [place] drain if possible. -Inflammatory markers remain elevated, CRP 154, white count down from 17 to 12. Kidney function electrolytes normal. Repeat CBC, CMP, magnesium ordered for the morning. -Repeat CRP and procalcitonin ordered for the morning. Diabetes: ? Hemoglobin A1c 8.3 implying decent controlled diabetes. -Increase to high intensity sliding scale. Increase Lantus to 70 units subcu twice daily mood disorder: desvenlafaxine succinate 50mg PO daily, Ativan 1 mg p.o. every 12 as needed anxiety Insomnia trazodone 150 mg p.o. PRN nightly obesity: Recommend healthy eating habits hypertension: Losartan 100mg p.o. daily, hyperlipidemia: Atorvastatin 20 mg p.o. nightly HFpEF: As above in hypertension/hyperlipidemia section plus Lasix 20 mg IV daily as needed fluid, 10 mg IV hydralazine every 6 as needed SBP over 160. atrial fibrillation on Eliquis HFpEF: Hold Eliquis since patient may require I&D right axillary abscess in AM. Diltiazem 300 mg p.o. daily watch patient for signs of RVR during hospitalization on telemetry. tobacco user: Nicotine patch 21 mg transdermal every 24 as needed nicotine cravings. Patient states she stopped smoking decades ago. Patient's collaborates her story. PPx SCDs in preparation for potential right shoulder I&D CODE STATUS full FEN diabetic diet
[2024-03-19] MEDS: LIDOCAINE 1% 20ML MDV 20 ML (15:26)
[2024-03-19] MEDS: ROPIVACAINE 0.5% 30ML VIAL 150 MG (15:26)
--- NOTE | 2024-03-19 15:50 | P.PNANES_ITS ---
[facility] Anesthesia Record Part I Anesthesia Record I Intake, IV Amount: 600 Hydration: Adequate Estimated blood loss (mL): 10 Urine output (mL): 0 Blood Pressure: 132/58 SaO2: 94 Pulse Rate: 104 Airway Patency: Patent Respiratory Rate: 16 Temperature: 97.4 F Patient is:: Awake Stable to PACU at:: 15:48
[2024-03-19 16:39] LABS: POC Glucose,Bedside 194 (70-110)
--- NOTE | 2024-03-19 18:05 | PC.NURSE ---
pt resting supine in bed with at bedside. wound washout and dressing this afternoon. dressing c/d/i. pt medicated for pain per may. post op vitals stable. tolerating ra with sats >90%. no complaints at this time. call light within reach
[2024-03-19] MEDS: ATORVASTATIN 20MG TABLET 20 MG PO (20:24)
[2024-03-19 20:56] LABS: POC Glucose,Bedside 274 (70-110)
[2024-03-19] MEDS: VANCOMYCIN HCL 2,500 MG in 0.9 % SODIUM CHLORIDE 500 ML 250 MG IV (21:55)
[2024-03-20] VITALS (21 sets, daily range): BP systolic 109–162; BP diastolic 53–77; PULSE 68–102; RESP 16–20; TEMP 36.6–36.8; O2SAT 91–100; BMI 50.1
[2024-03-20] MEDS: CEFEPIME HCL 1 GM in 0.9 % SODIUM CHLORIDE 50 ML IV ×2 (00:43→11:43)
[2024-03-20] MEDS: MORPHINE 4MG/ML SYRINGE 4 MG IV ×2 (01:03→23:08)
[2024-03-20] MEDS: METRONIDAZ/SOD CHL 500 MG/100 ML PIGGYBACK 100 MG IV ×2 (01:15→17:49)
[2024-03-20] MEDS: MORPHINE 2MG/ML SYRINGE 2 MG IV ×4 (04:14→18:51)
[2024-03-20] MEDS: ONDANSETRON 4MG/2ML VIAL 4 MG IV (04:45)
--- NOTE | 2024-03-20 05:05 | PC.NURSE ---
Alert and oriented. Tolerating room air. Incision left axilla, CDI. Complained of pain several times, treated per may. Nausea one time, treated per may. Purewick in place, patient has not ambulated this shift. No other complaints. Family at bedside. Call light in reach.
--- NOTE | 2024-03-20 06:49 | P.PN_ITS ---
Subjective Narrative: Patient complains of significant pain in her armpit . Asks for pain medication prior to possible surgery Exam Data for Last 24 hours Vital signs and Labs for Last 24 Hours: Temp Pulse Resp BP Pulse Ox O2 Del Method O2 Flow Rate 98.1 F 72 19 132/66 91 L Room Air 2 03/20/24 04:00 03/20/24 04:00 03/20/24 04:00 03/20/24 04:00 03/20/24 04:00 03/20/24 04:00 03/19/24 15:57 Laboratory Results - last 24 hr 03/19/24 06:05: WBC 12.4 H D, RBC 4.05 L, Hgb 11.1 L, Hct 34.9 L, MCV 86.2, MCH 27.4, MCHC 31.8, RDW 14.2, Plt Count 317, MPV 9.6, Neut % (Auto) 76.9, Lymph % (Auto) 12.2, [place] % (Auto) 6.0, Eos % (Auto) 3.8, Baso % (Auto) 0.4, Neut # (Auto) 9.5 H, Lymph # (Auto) 1.5, [place] # (Auto) 0.8, Eos # (Auto) 0.5 H, Baso # (Auto) 0.1, Sodium 132 L, Potassium 4.9, Chloride 102, Carbon Dioxide 30, Anion Gap 4.9 L, BUN 24 H, Creatinine 1.10 H, Estimated Creat Clear 58, Estimated GFR 53 L, Est GFR ( Amer) 64, Glucose 250 H, Calcium 8.8, Magnesium 2.3 D, C-Reactive Protein 154.2 H 03/19/24 10:53: POC Glucose 258 H 03/19/24 16:25: POC Glucose 194 H 03/19/24 20:29: POC Glucose 274 H I & O for Last 24 hours: Intake & Output 03/17/24 03/18/24 03/19/24 03/20/24 11:59 11:59 11:59 11:59 Intake Total 500 / 500 1320 / 1320 1600 / 1600 Output Total 0 / 0 550 / 550 700 / 700 Balance 500 / 500 770 / 770 900 / 900 Weight 330 lb 1.6 oz 321 lb 1.6 oz 319 lb 3.669 oz Microbiology Reports for the Last 24 Hours: Microbiology 03/17/24 22:10 Blood Blood Culture - Preliminary NO GROWTH AFTER 48 HOURS 03/17/24 21:32 Blood Blood Culture - Preliminary NO GROWTH AFTER 48 HOURS 03/18/24 09:12 Axilla,Left Gram Stain - Final 03/18/24 09:12 Axilla,Left Abscess Culture - Preliminary Gram Positive Cocci *Routine Skin Exam Comments: Erythema appears to be regressing. Very tender. Significant pain even with removing tape. Progress Note: A&P Assessment and plan (1) Sepsis due to cellulitis: Status: Acute (2) Abscess of axilla, left: Status: Acute Assessment and plan: Patient has significant pain even with removing the tape. Would be unable to tolerate removing packing. Plan for another washout under anesthesia with hopefully less packing or drain placement today. (3) General weakness: Status: Acute (4) Afib: Status: Acute (5) Mood disorder: Status: Acute (6) Diabetes mellitus: Status: Chronic (7) CAD (coronary artery disease): Status: Acute (8) (HFpEF) heart failure with preserved ejection fraction: Status: Chronic (9) Morbid obesity: Status: Chronic (10) Malignant hypertension: Status: Chronic (11) HLD (hyperlipidemia): Status: Chronic (12) HHD (hypertensive heart disease): Status: Chronic (13) Hypertensive urgency: Status: Resolved (14) PAF (paroxysmal atrial fibrillation): Status: Chronic
[2024-03-20 07:03] LABS: C-Reactive Protein 82.8 mg/L (0-4)
[2024-03-20 07:08] LABS: HCV Ab Non Reactive (Non Reactive)
[2024-03-20 07:11] LABS: Basophils # 0.1 K/mm3 (0-0.2); Basophils % 0.4 % (0.1-2.0); Eosinophils # 0.5 K/mm3 (0.0-0.4); Hematocrit 34.6 % (37.0-47.0); Hemoglobin 10.9 g/dL (12.2-16.2); Lymphocytes # 1.4 K/mm3 (0.7-4.5); Lymphocytes % 11.4 % (10-50); Mean Corpuscular HGB Conc 31.5 g/dL (31.8-35.4); Mean Corpuscular Hemoglobin 27.5 pg (27.0-31.2); Mean Corpuscular Volume 87.2 fl (81-99); Mean Platelet Volume 9.7 fl (7.4-10.4); Monocytes # 0.8 K/mm3 (0.1-1.0); Monocytes % 6.8 % (1.7-9.3); Neutrophils # 9.4 K/mm3 (1.8-7.8); Neutrophils % 76.4 % (37.0-80.0); Platelet Count 343 K/mm3 (142-424); Red Blood Count 3.97 M/mm3 (4.20-5.40); White Blood Count 12.3 K/mm3 (4.8-10.8)
[2024-03-20 07:29] LABS: Chloride 102 mmol/L (98-107); Potassium 4.6 mmoL/L (3.5-5.1); Sodium 133 mmol/L (136-145)
[2024-03-20 07:32] LABS: Anion Gap 8.6 mEq/L (5-15); Blood Urea Nitrogen 19 mg/dl (7-17); Calcium 8.5 mg/dl (8.4-10.2); Carbon Dioxide 27 mmol/L (22.0-30.0); Creatinine Clearance Estimated 64 mL/min (50-200); Estimated Glomerular Filt Rate 59 ml/min (>60); GFR (African American) 71 ML/MIN (>60); Glucose 134 mg/dl (74-100)
[2024-03-20 07:33] LABS: Magnesium 2.2 mg/dl (1.6-2.3)
[2024-03-20 07:46] LABS: POC Glucose,Bedside 160 (70-110)
--- NOTE | 2024-03-20 08:38 | EXP.ANES.CKL ---
[facility] Disclaimer: The information contained in this section may have been updated after the patient was seen, as this information can be updated by other users. Medical History (Updated 03/18/24 @ 03:55 by Jak Mcmanus RN) Below knee amputation Urinary tract infection Seizure disorder Fibromyalgia Cellulitis Pancreatitis History of gastroesophageal reflux (GERD) High blood pressure High cholesterol Afib Mood disorder CHF (congestive heart failure) Diabetes Tachycardia Surgical History History of cholecystectomy History of appendectomy History of section History of hysterectomy History of colonoscopy Family History Other Family history of cancer Family history of myocardial infarction Family history of stroke Social History Smoking Status: Current every day smoker tobacco type: cigarettes second hand exposure: Yes alcohol intake: former substance use type: denies use current occupational status: unemployed and disabled Travel in the last 8 weeks: None household members: spouse housing: house current occupational exposures/hazards: No caffeine: Yes Have you lived/traveled outside [place] in past 30 days?: No Contact w/someone who lives/traveled outside US past 30 days?: No Exposure to someone with infectious disease in past 14 days?: No Do you have a fever (greater than 100.4 F or 38 C)?: Yes Have you tested positive for COVID-19: No Exposed to someone with COVID-19 in past 14 days?: No Do you have a sore throat?: No Do you have a cough?: No Do you have any weakness?: Yes Do you have any diarrhea?: No Are you experiencing any unusual bleeding?: No Do you have any muscle aches/pain?: No Do you have any abdominal pain?: No Are you experiencing loss of taste or smell?: No [facility] Anesthesia Checklist Patient Identification Patient Identification: Arm Band Structural Data Admitted From: Inpatient Planned Operative Procedure/s: I&D Left Axillary Abscess Consent for Planned Operative Procedure(s) Verified: Yes Verified Documents: Surgical Consent and History and Physical NPO Status Verified Time NPO: 00:00 Additional verifications Anesthesia Reactions: No Hx Blood Transfusions: No Blood Transfusion Reaction: No Airway Assessment Mallampati Score:: Class II C-Spine Mobility Assessed: Yes TMJ Mobility Assessed: Yes Dentition: Good Dentition Neurological Assessment Level of Consciousness: Awake, Alert and Appropriate Anesthesia Plan Anesthesia Risk discussed: Yes Anesthesia Plan: Verified ASA Class: III Anesthesia Type: General
--- NOTE | 2024-03-20 10:39 | EXP.OP.NOTE ---
Date of procedure: 03/20/24 Pre-op Diagnosis:: Left axillary abscess/soft tissue infection Post-op Diagnosis:: Same Procedure performed:: Dressing change and wound washout under anesthesia Surgeon:: Luther Muhammad MD MINE SAFETY ENGINEER:: Darrel Viramontes Anesthesia: LMA Estimated blood loss (mL): 3 Operative findings:: Mostly healthy appearing tissue. Some indurated inflamed tissue mostly deep to axillary tail of the breast. Operative note:: Patient was taken the operating room. She was maintained on the hospital bed. Anesthesia was induced via LMA. The area was positioned and prepped and draped in the standard surgical fashion after removal of packing. Inspection of the wound was carried out. There was some mild to moderately inflamed tissue deep to the axillary tail of the left breast but no evidence of any definite necrosis. No additional purulence noted after digital palpation and attempted finger fracture of inflamed tissues. Wound was thoroughly irrigated with approximately 3 L saline using the [employer] interpulse device. There was good hemostasis. Wound was moderately loosely packed with saline moistened Kerlix gauze. Clean dry sterile dressing was applied. Condition: stable Disposition: PACU Complications:: None immediately apparent
--- NOTE | 2024-03-20 10:42 | P.PNANES_ITS ---
[facility] Anesthesia Record Part I Anesthesia Record I Intake, IV Amount: 500 Hydration: Adequate Estimated blood loss (mL): 5 Urine output (mL): 0 Blood Products used (#): none Blood Pressure: 124/72 SaO2: 93 Pulse Rate: 74 Airway Patency: Patent Respiratory Rate: 16 Temperature: 98.3 F Patient is:: Drowsy and Stable Stable to PACU at:: 10:35
[2024-03-20 10:54] LABS: POC Glucose,Bedside 165 (70-110)
[2024-03-20] MEDS: INSULIN GLARGINE 100 UNITS/ML 10ML VIAL 70 UNIT SUBCUT ×2 (11:38→21:22)
[2024-03-20] MEDS: humaLOG 100 UNITS/ML 10ML VIAL (SSI) SUBCUT ×3 (11:38→21:19)
[2024-03-20] MEDS: humaLOG 100 UNITS/ML 10ML VIAL (SSI) 10 UNIT SUBCUT ×2 (11:39→16:41)
[2024-03-20] MEDS: VENLAFAXINE XR 75MG CAPSULE 75 MG PO (11:41)
[2024-03-20] MEDS: dilTIAZem ER 120MG CAPSULE 120 MG PO (11:41)
[2024-03-20] MEDS: IRBESARTAN 150MG TAB 150 MG PO (11:41)
[2024-03-20] MEDS: dilTIAZem ER 180 MG CAPSULE PO (11:42)
--- NOTE | 2024-03-20 14:12 | SW/DCPLANNER ---
Addendum entered by Shahnaz Mclean 03/20/24 15:43: Spoke with Emily from [facility] on the phone and they are able to take the patient. Emily asked that we let her know when patient gets discharged and it would be Saturday before they could see patient. Original Note: Spoke with patient about home health services coming in to help with dressing change. Patient stated that she would like to have [facility]. Patient stated that her will bethere to help on days home health cant come. Faxed patients information to [facility].
--- NOTE | 2024-03-20 14:18 | P.PNANES_ITS ---
[facility] Anesthesia Record Part II Anesthesia Record Part II Discharge Time: 11:05 Destination: Surgical Day Care (OP Surgery) PACU nurse assessment reviewed?: Yes Patient Condition:: Good Anesthesia Complications:: None Swallowing reflex intact?: Yes Airway Patency: Patent Cyanosis?: No Blood Pressure: 109/57 SaO2: 96 Respiratory Rate: 16 Pulse Rate: 68 Temperature: 98.3 F Mental Status: Alert & Oriented Pain level:: 0 Nausea and/or vomitting:: None Intake, IV Amount: 0 Hydration: Adequate
--- NOTE | 2024-03-20 15:13 | PC.NURSE ---
pt underwent wound washout and dsg change of lt axilla wound this a.m. pt is still on post op vital signs per protocol. pt has been receiving IV abx for infection in wound. dsg is cdi. pt has c/o some pain and has been medicated per MAY. pt has been using ppurewick as she is bed bound w/ rt side bka. no new orders at this time. call light within reach.
[2024-03-20] MEDS: VANCOMYCIN HCL 2,500 MG in 0.9 % SODIUM CHLORIDE 500 ML 250 MG IV (15:24)
[2024-03-20 16:42] LABS: POC Glucose,Bedside 426 (70-110)
--- NOTE | 2024-03-20 17:07 | P.PN_ITS ---
Subjective *Date: 03/20/24 *Time: 17:07 Interval history: Patient feeling better today. Went back for repeat washout. Wound packed but no drain placed. States she is feeling more like herself. More energetic. Less fatigue and malaise. Afebrile overnight. Stable on room air. Still has pain in the left axilla. No nausea or vomiting. Medical Exam Vital signs and Labs for Last 24 Hours: Vital Signs Temp Pulse Pulse Resp BP BP Pulse Ox 03/20/24 14:47 03/20/24 14:19 16 03/20/24 12:55 98.3 F 83 20 113/74 97 03/20/24 12:45 03/20/24 12:25 98.3 F 86 20 109/56 L 95 03/20/24 11:55 98.3 F 74 20 135/69 99 03/20/24 11:40 98.3 F 81 20 125/63 99 03/20/24 11:25 98.3 F 89 20 127/69 98 03/20/24 11:05 98.3 F 80 20 117/67 97 03/20/24 11:05 68 16 109/57 L 96 03/20/24 10:55 69 16 125/62 95 03/20/24 10:45 73 18 143/74 H 94 L 03/20/24 10:42 98.3 F 74 16 124/72 03/20/24 10:35 98.3 F 74 16 124/72 93 L 03/20/24 08:00 03/20/24 08:00 98.3 F 102 H 18 135/58 L 96 03/20/24 07:00 03/20/24 05:00 03/20/24 04:00 98.1 F 72 19 132/66 91 L 03/20/24 03:00 03/20/24 01:00 03/19/24 23:52 98.4 F 73 17 134/63 96 03/19/24 23:00 03/19/24 21:00 03/19/24 20:00 03/19/24 20:00 98.0 F 72 18 124/67 93 L 03/19/24 18:47 03/19/24 18:45 98.1 F 71 16 135/51 L 95 03/19/24 17:45 98.1 F 76 20 124/69 94 L 03/19/24 17:15 98.2 F 71 16 122/67 95 O2 Del Method 03/20/24 14:47 Room Air 03/20/24 14:19 03/20/24 12:55 Room Air 03/20/24 12:45 Room Air 03/20/24 12:25 Room Air 03/20/24 11:55 Room Air 03/20/24 11:40 Room Air 03/20/24 11:25 Room Air 03/20/24 11:05 Room Air 03/20/24 11:05 Room Air 03/20/24 10:55 Room Air 03/20/24 10:45 Room Air 03/20/24 10:42 03/20/24 10:35 Room Air 03/20/24 08:00 Room Air 03/20/24 08:00 Room Air 03/20/24 07:00 Room Air 03/20/24 05:00 Room Air 03/20/24 04:00 Room Air 03/20/24 03:00 Room Air 03/20/24 01:00 Room Air 03/19/24 23:52 Room Air 03/19/24 23:00 Room Air 03/19/24 21:00 Room Air 03/19/24 20:00 Room Air 03/19/24 20:00 Room Air 03/19/24 18:47 Room Air 03/19/24 18:45 Room Air 03/19/24 17:45 Room Air 03/19/24 17:15 Room Air Intake and Output 03/20/24 03/20/24 03/20/24 07:59 15:59 23:59 Intake Total 900 / 2410 1510 / 2410 Output Total 400 / 400 0 / 400 Balance 2009 Intake: Intake, Oral Amount 250 / 1210 960 / 1210 Intake, Total IV Amount 650 / 1200 550 / 1200 Cefepime HCl 1 gm In 0.9 % 50 / 100 50 / 100 Sodium Chloride 50 ml @ 100 mls /hr IV Q12H CORDELIA Rx#:[id number] Metronidaz/Sod Chl 500 mg In 100 / 100 100 ml @ 100 mls/hr IV Q8H CORDELIA Rx#:[id number] Vancomycin HCl 2,500 mg In 0.9 500 / 500 % Sodium Chloride 500 ml @ 250 mls/hr IV Q18H CORDELIA Rx#:[id number] Output: Output, Urine Amount 400 / 400 0 / 400 Other: Number of Unmeasured Voids 1 Number of Bowel Movements 1 Weight 144.8 kg 144.8 kg Patient Weight 03/20/24 23:59 Weight 144.8 kg Laboratory Results - last 24 hr 03/17/24 21:32: Hepatitis C Antibody Non reactive 03/19/24 20:29: POC Glucose 274 H 03/20/24 05:54: WBC 12.3 H, RBC 3.97 L, Hgb 10.9 L, Hct 34.6 L, MCV 87.2, MCH 27.5, MCHC 31.5 L, RDW 14.0, Plt Count 343, MPV 9.7, Neut % (Auto) 76.4, Lymph % (Auto) 11.4, [place] % (Auto) 6.8, Eos % (Auto) 4.0, Baso % (Auto) 0.4, Neut # (Auto) 9.4 H, Lymph # (Auto) 1.4, [place] # (Auto) 0.8, Eos # (Auto) 0.5 H, Baso # (Auto) 0.1, Sodium 133 L, Potassium 4.6, Chloride 102, Carbon Dioxide 27, Anion Gap 8.6, BUN 19 H, Creatinine 1.00, Estimated Creat Clear 64, Estimated GFR 59, Est GFR ( Amer) 71, Glucose 134 H D, Calcium 8.5, Magnesium 2.2, C- Reactive Protein 82.8 H D 03/20/24 06:59: POC Glucose 160 H 03/20/24 10:45: POC Glucose 165 H 03/20/24 16:29: POC Glucose 426 H* I & O for Labs for Last 24 Hours: Intake & Output 03/17/24 03/18/24 03/19/24 03/20/24 23:59 23:59 23:59 23:59 Intake Total 1460 / 1460 1060 / 1960 2410 / 2410 Output Total 0 / 300 850 / 850 400 / 400 Balance 1460 / 1160 210 / 1110 2009 Weight 136.078 kg 149.731 kg 145.649 kg 144.8 kg Microbiology Reports for the Last 24 Hours: Microbiology 03/18/24 09:12 Axilla,Left Gram Stain - Final 03/18/24 09:12 Axilla,Left Abscess Culture - Final Staphylococcus aureus 03/17/24 22:10 Blood Blood Culture - Preliminary NO GROWTH AFTER 48 HOURS 03/17/24 21:32 Blood Blood Culture - Preliminary NO GROWTH AFTER 48 HOURS Constitutional: Present no acute distress, morbidly obese, chronically ill appearing and cooperative Head: Present atraumatic and normocephalic ENT: Present normal exam Respiratory: Present normal respiratory effort; Absent rhonchi, wheezes or crackles Cardiac: Present Reg Rate and Rhythm GI: Present soft and normal bowel sounds; Absent distention or tenderness Extremities: Present full ROM Comment:: Improving erythema of left axilla. Warmth decreasing. Improved tenderness.; right BKA Skin: Present intact; Absent erythema Neuro: Present Grossly Intact, alert, awake, oriented x 3 and moves all extremities Assessment and Plan *Assessment and plan (1) Sepsis due to cellulitis: Status: Acute Category: Medical Code(s): L03.90 - Cellulitis, unspecified; A41.9 - Sepsis, unspecified organism (2) Abscess of axilla, left: Status: Acute Category: Medical Code(s): L02.412 - Cutaneous abscess of left axilla (3) General weakness: Status: Acute Category: Medical Code(s): R53.1 - Weakness (4) Afib: Status: Acute Category: Medical Code(s): I48.91 - Unspecified atrial fibrillation (5) Mood disorder: Status: Acute Category: Medical Code(s): F39 - Unspecified mood [affective] disorder (6) Diabetes mellitus: Status: Chronic Qualifiers: Diabetes mellitus type: type 2 Diabetes mellitus manager terminal insulin use: unspecified half-way insulin use status Diabetes mellitus complication status: with other specified complication Qualified Code(s): E11.69 - Type 2 diabetes mellitus with other specified complication Category: Medical Code(s): E11.9 - Type 2 diabetes mellitus without complications (7) CAD (coronary artery disease): Status: Acute Qualifiers: Coronary Disease-Associated Artery/Lesion type: [place] artery [place] vs. transplanted heart: [place] heart Associated angina: without angina Qualified Code(s): I25.10 - Atherosclerotic heart disease of [place] coronary artery without angina pectoris Category: Medical Code(s): I25.10 - Atherosclerotic heart disease of [place] coronary artery without angina pectoris (8) (HFpEF) heart failure with preserved ejection fraction: Status: Chronic Qualifiers: Heart failure chronicity: acute on chronic Qualified Code(s): I50.33 - Acute on chronic diastolic (congestive) heart failure Category: Medical Code(s): I50.30 - Unspecified diastolic (congestive) heart failure (9) Morbid obesity: Status: Chronic Category: Medical Code(s): E66.01 - Morbid (severe) obesity due to excess calories (10) Malignant hypertension: Status: Chronic Category: Medical Code(s): I10 - Essential (primary) hypertension (11) HLD (hyperlipidemia): Status: Chronic Qualifiers: Hyperlipidemia type: mixed hyperlipidemia Qualified Code(s): E78.2 - Mixed hyperlipidemia Category: Medical Code(s): E78.5 - Hyperlipidemia, unspecified (12) HHD (hypertensive heart disease): Status: Chronic Qualifiers: Heart failure presence: without heart failure Qualified Code(s): I11.9 - Hypertensive heart disease without heart failure Category: Medical Code(s): I11.9 - Hypertensive heart disease without heart failure (13) Hypertensive urgency: Status: Resolved Category: Medical Code(s): I16.0 - Hypertensive urgency (14) PAF (paroxysmal atrial fibrillation): Status: Chronic Category: Medical Code(s): I48.0 - Paroxysmal atrial fibrillation Plan 48-year-old with past medical history of diabetes, mood disorder, obesity, hypertension, hyperlipidemia, CAD, atrial fibrillation on Eliquis HFpEF, tobacco user. Patient presents with 2 to 3 days right axillary pain and potential right axillary abscess noted on CT chest/shoulder. WBC 14.6, LA 1.9, CRP 106.3. Procalcitonin pending at time of admission. Taken for I&D on 03/18, washout performed 03/19, repeat washout and dressing change under anesthesia performed today by surgery. Continues to require inpatient management. Continue broad- spectrum IV antibiotics. Initial wound cultures growing MRSA. Problems addressed as follows: Taken for I&D yesterday, plan for repeat I&D today. Continues to require patient management. Problems addressed as follows: Right shoulder abscess: ?Continue broad-spectrum antibiotics with cefepime 1 g IV twice daily and vancomycin IV daily -Initial wound cultures growing MRSA. Sensitive to clindamycin, Bactrim, doxycycline. Will transition to combo of Bactrim double strength and doxycycline at discharge to complete 7 days total of Bactrim from source control on 03/18 and 10 days total of doxycycline from source control on 03/18. -Discussed case with surgery, repeat washout with packing performed today. Wound looking better. No drain left in place. -Inflammatory markers improving with CRP of 82. White count improving at 12. Kidney function normal with BUN 19, creatinine 1. Repeat CBC, CMP, magnesium, procalcitonin and CRP ordered for the morning Diabetes: ? Hemoglobin A1c 8.3 implying decent controlled diabetes. -Lantus increased to 70 units twice daily. Continue high intensity sliding scale +10 units every meal. Morning glucose 134. mood disorder: desvenlafaxine succinate 50mg PO daily, Ativan 1 mg p.o. every 12 as needed anxiety Insomnia trazodone 150 mg p.o. PRN nightly obesity: Recommend healthy eating habits hypertension: Losartan 100mg p.o. daily, hyperlipidemia: Atorvastatin 20 mg p.o. nightly HFpEF: As above in hypertension/hyperlipidemia section plus Lasix 20 mg IV daily as needed fluid, 10 mg IV hydralazine every 6 as needed SBP over 160. atrial fibrillation on Eliquis HFpEF: Hold Eliquis since patient may require I&D right axillary abscess in AM. Diltiazem 300 mg p.o. daily watch patient for signs of RVR during hospitalization on telemetry. tobacco user: Nicotine patch 21 mg transdermal every 24 as needed nicotine cravings. Patient states she stopped smoking decades ago. Patient's collaborates her story. PPx SCDs CODE STATUS full FEN diabetic diet
[2024-03-20] MEDS: ATORVASTATIN 20MG TABLET 20 MG PO (21:15)
[2024-03-20] MEDS: SODIUM CHLORIDE 0.9% 10ML FLUSH SYRINGE 10 ML IV (23:14)
[2024-03-21] MEDS: CEFEPIME HCL 1 GM in 0.9 % SODIUM CHLORIDE 50 ML IV (00:07)
[2024-03-21] MEDS: METRONIDAZ/SOD CHL 500 MG/100 ML PIGGYBACK 100 MG IV ×2 (01:17→08:50)
[2024-03-21 03:38] VITALS: BP 123/68; PULSE 67; RESP 18; TEMP 36.6; O2SAT 95
[2024-03-21 04:00] VITALS: BMI 49.4
--- NOTE | 2024-03-21 05:08 | PC.NURSE ---
0505: Pt. is alert and orientated x 4. Pt. had a good night. Pt. on room air. c/o some pain to left axilla. Medicated per MAR for pain. dressing clean, dry and intact. Pt. has a purewick,, urine out put adequate. she has a right BKA and unable to get out of bed at this time. IV antibiotics recieved. FBS 345, Lantus and S/S Insulin given . Pt. slept on and off. VSS, personal items and call gomes in reach.
[2024-03-21 05:09] LABS: POC Glucose,Bedside 345 (70-110)
[2024-03-21] MEDS: humaLOG 100 UNITS/ML 10ML VIAL (SSI) SUBCUT ×2 (06:20→11:58)
[2024-03-21] MEDS: humaLOG 100 UNITS/ML 10ML VIAL (SSI) 10 UNIT SUBCUT (06:22)
[2024-03-21] MEDS: MORPHINE 4MG/ML SYRINGE 4 MG IV ×2 (06:29→08:33)
[2024-03-21 08:00] VITALS: BP 133/69; PULSE 57; RESP 17; TEMP 36.8; O2SAT 95
[2024-03-21] MEDS: LORazepam 2MG/ML VIAL 1 MG IV (08:32)
[2024-03-21] MEDS: ONDANSETRON 4MG/2ML VIAL 4 MG IV (08:33)
[2024-03-21] MEDS: VENLAFAXINE XR 75MG CAPSULE 75 MG PO (08:49)
[2024-03-21] MEDS: dilTIAZem ER 120MG CAPSULE 120 MG PO (08:49)
[2024-03-21] MEDS: IRBESARTAN 150MG TAB 150 MG PO (08:49)
[2024-03-21] MEDS: dilTIAZem ER 180 MG CAPSULE PO (08:51)
--- NOTE | 2024-03-21 08:51 | EXP.SURG.PN ---
Subjective Patient reports: no new complaints Exam Data for Last 24 hours Vital signs and Labs for Last 24 Hours: Temp Pulse Resp BP Pulse Ox O2 Del Method O2 Flow Rate 98.2 F 57 L 17 133/69 95 Room Air 2 03/21/24 08:00 03/21/24 08:00 03/21/24 08:00 03/21/24 08:00 03/21/24 08:00 03/21/24 06:41 03/19/24 15:57 Laboratory Results - last 24 hr 03/20/24 10:45: POC Glucose 165 H 03/20/24 16:29: POC Glucose 426 H* 03/20/24 21:03: POC Glucose 345 H* I & O for Last 24 hours: Intake & Output 03/18/24 03/19/24 03/20/24 03/21/24 11:59 11:59 11:59 11:59 Intake Total 500 / 500 1320 / 1320 2100 / 2100 1130 / 1130 Output Total 0 / 0 550 / 550 700 / 700 2800 / 2800 Balance 500 / 500 770 / 770 1400 / 1400 -1670 / -1670 Weight 330 lb 1.6 oz 321 lb 1.6 oz 319 lb 3.669 oz 315 lb 1 oz Microbiology Reports for the Last 24 Hours: Microbiology 03/18/24 09:12 Axilla,Left Gram Stain - Final 03/18/24 09:12 Axilla,Left Abscess Culture - Final Staphylococcus aureus *Routine Skin Exam Comments: Still with some cellulitis/erythema skin overlying axillary tail. Wound itself clean. Progress Note: A&P Assessment and plan (1) Sepsis due to cellulitis: Status: Acute (2) Abscess of axilla, left: Status: Acute Assessment and plan: Possible discharge home pending arrangements for outpatient wound care. (3) General weakness: Status: Acute (4) Afib: Status: Acute (5) Mood disorder: Status: Acute (6) Diabetes mellitus: Status: Chronic (7) CAD (coronary artery disease): Status: Acute (8) (HFpEF) heart failure with preserved ejection fraction: Status: Chronic (9) Morbid obesity: Status: Chronic (10) Malignant hypertension: Status: Chronic (11) HLD (hyperlipidemia): Status: Chronic (12) HHD (hypertensive heart disease): Status: Chronic (13) Hypertensive urgency: Status: Resolved (14) PAF (paroxysmal atrial fibrillation): Status: Chronic
[2024-03-21 08:54] LABS: Basophils # 0.1 K/mm3 (0-0.2); Basophils % 0.6 % (0.1-2.0); Eosinophils # 0.1 K/mm3 (0.0-0.4); Eosinophils % 0.8 % (0.1-12.0); Hematocrit 32.9 % (37.0-47.0); Hemoglobin 10.4 g/dL (12.2-16.2); Lymphocytes # 1.2 K/mm3 (0.7-4.5); Lymphocytes % 8.6 % (10-50); Mean Corpuscular HGB Conc 31.6 g/dL (31.8-35.4); Mean Corpuscular Hemoglobin 27.4 pg (27.0-31.2); Mean Corpuscular Volume 86.8 fl (81-99); Monocytes # 0.7 K/mm3 (0.1-1.0); Monocytes % 5.3 % (1.7-9.3); Neutrophils # 11.2 K/mm3 (1.8-7.8); Neutrophils % 82.2 % (37.0-80.0); Platelet Count 356 K/mm3 (142-424); Red Blood Count 3.79 M/mm3 (4.20-5.40); Red Cell Distribution Width 13.8 % (11.5-17.5); White Blood Count 13.7 K/mm3 (4.8-10.8)
[2024-03-21] MEDS: INSULIN GLARGINE 100 UNITS/ML 10ML VIAL 80 UNIT SUBCUT (08:54)
[2024-03-21 09:06] LABS: Albumin Level 3.3 g/dl (3.5-5.0); Chloride 101 mmol/L (98-107); Potassium 4.6 mmoL/L (3.5-5.1); Sodium 133 mmol/L (136-145)
[2024-03-21 09:09] LABS: Alanine Aminotransferase 24 U/L (12-78); Alkaline Phosphatase 71 U/L (38-126); Anion Gap 10.6 mEq/L (5-15); Aspartate Amino Transferase 26 U/L (14-36); Bilirubin,Total 0.2 mg/dl (0.2-1.3); Blood Urea Nitrogen 22 mg/dl (7-17); Carbon Dioxide 26 mmol/L (22.0-30.0); Creatinine Clearance Estimated 64 mL/min (50-200); Estimated Glomerular Filt Rate 59 ml/min (>60); GFR (African American) 71 ML/MIN (>60); Globulin 3.2 g/dL (1.3-3.2); Glucose 287 mg/dl (74-100); Magnesium 2.2 mg/dl (1.6-2.3); Total Protein,Serum 6.5 g/dl (6.3-8.2)
[2024-03-21 09:25] LABS: Vancomycin,Trough 10.6 ug/mL (5.0-10.0)
[2024-03-21 09:26] LABS: Procalcitonin 0.186 ng/mL (0.0-2.0)
--- NOTE | 2024-03-21 10:13 | P.PN_ITS ---
Subjective *Date: 03/21/24 *Time: 10:13 Medical Exam Vital signs and Labs for Last 24 Hours: Vital Signs Temp Pulse Pulse Resp BP BP Pulse Ox 03/21/24 09:00 03/21/24 08:00 03/21/24 08:00 98.2 F 57 L 17 133/69 95 03/21/24 06:41 03/21/24 05:00 03/21/24 03:38 97.9 F 67 18 123/68 95 03/21/24 03:00 03/21/24 01:00 03/20/24 23:24 97.9 F 71 18 140/70 93 L 03/20/24 23:00 03/20/24 21:00 03/20/24 20:00 03/20/24 19:33 98.2 F 70 18 162/77 H 92 L 03/20/24 19:00 03/20/24 17:55 98.3 F 72 20 116/53 L 99 03/20/24 17:00 03/20/24 16:55 98.3 F 90 20 125/64 98 03/20/24 15:55 98.3 F 89 20 137/75 100 03/20/24 14:55 98.3 F 86 20 121/65 99 03/20/24 14:47 03/20/24 14:19 16 03/20/24 13:55 98.3 F 74 20 124/63 98 03/20/24 13:25 98.3 F 76 20 128/62 97 03/20/24 12:55 98.3 F 83 20 113/74 97 03/20/24 12:45 03/20/24 12:25 98.3 F 86 20 109/56 L 95 03/20/24 11:55 98.3 F 74 20 135/69 99 03/20/24 11:40 98.3 F 81 20 125/63 99 03/20/24 11:25 98.3 F 89 20 127/69 98 03/20/24 11:05 98.3 F 80 20 117/67 97 03/20/24 11:05 68 16 109/57 L 96 03/20/24 10:55 69 16 125/62 95 03/20/24 10:45 73 18 143/74 H 94 L 03/20/24 10:42 98.3 F 74 16 124/72 03/20/24 10:35 98.3 F 74 16 124/72 93 L O2 Del Method 03/21/24 09:00 Room Air 03/21/24 08:00 Room Air 03/21/24 08:00 03/21/24 06:41 Room Air 03/21/24 05:00 Room Air 03/21/24 03:38 Room Air 03/21/24 03:00 Room Air 03/21/24 01:00 Room Air 03/20/24 23:24 Room Air 03/20/24 23:00 Room Air 03/20/24 21:00 Room Air 03/20/24 20:00 Room Air 03/20/24 19:33 Room Air 03/20/24 19:00 Room Air 03/20/24 17:55 Room Air 03/20/24 17:00 Room Air 03/20/24 16:55 Room Air 03/20/24 15:55 Room Air 03/20/24 14:55 Room Air 03/20/24 14:47 Room Air 03/20/24 14:19 03/20/24 13:55 Room Air 03/20/24 13:25 Room Air 03/20/24 12:55 Room Air 03/20/24 12:45 Room Air 03/20/24 12:25 Room Air 03/20/24 11:55 Room Air 03/20/24 11:40 Room Air 03/20/24 11:25 Room Air 03/20/24 11:05 Room Air 03/20/24 11:05 Room Air 03/20/24 10:55 Room Air 03/20/24 10:45 Room Air 03/20/24 10:42 03/20/24 10:35 Room Air Intake and Output 03/20/24 03/21/24 03/21/24 23:59 07:59 15:59 Intake Total 120 / 2530 460 / 460 Output Total 1000 / 2500 1800 / 1800 Balance -880 / 30 -1800 / -1340 460 / -1340 Intake: Intake, Oral Amount 120 / 1330 360 / 360 Intake, Total IV Amount 100 / 100 Metronidaz/Sod Chl 500 mg In 100 / 100 100 ml @ 100 mls/hr IV Q8H [facility] Rx#:[id number] Output: Output, Urine Amount 1000 / 2500 1800 / 1800 Other: Number of Unmeasured Voids 2 Number of Bowel Movements 2 Weight 142.91 kg Patient Weight 03/21/24 23:59 Weight 142.91 kg Laboratory Results - last 24 hr 03/20/24 10:45: POC Glucose 165 H 03/20/24 16:29: POC Glucose 426 H* 03/20/24 21:03: POC Glucose 345 H* 03/21/24 08:02: WBC 13.7 H, RBC 3.79 L, Hgb 10.4 L, Hct 32.9 L, MCV 86.8, MCH 27.4, MCHC 31.6 L, RDW 13.8, Plt Count 356, MPV 10.0, Neut % (Auto) 82.2 H, Lymph % (Auto) 8.6 L, [place] % (Auto) 5.3, Eos % (Auto) 0.8, Baso % (Auto) 0.6, Neut # (Auto) 11.2 H, Lymph # (Auto) 1.2, [place] # (Auto) 0.7, Eos # (Auto) 0.1, Baso # (Auto) 0.1, Sodium 133 L, Potassium 4.6, Chloride 101, Carbon Dioxide 26, Anion Gap 10.6, BUN 22 H, Creatinine 1.00, Estimated Creat Clear 64, Estimated GFR 59, Est GFR ( Amer) 71, Glucose 287 H, Calcium 9.0, Magnesium 2.2, Total Bilirubin 0.2, AST 26, ALT 24, Alkaline Phosphatase 71, C-Reactive Protein 51.0 H D, Total Protein 6.5, Albumin 3.3 L, Globulin 3.2, Albumin/Globulin Ratio 1.0 L, Procalcitonin 0.186, Vancomycin Trough 10.6 H I & O for Labs for Last 24 Hours: Intake & Output 03/18/24 03/19/24 03/20/24 03/21/24 23:59 23:59 23:59 23:59 Intake Total 1460 / 1460 1060 / 1960 2530 / 2530 460 / 460 Output Total 0 / 300 850 / 850 1400 / 2500 1800 / 1800 Balance 1460 / 1160 210 / 1110 1130 / 30 -1340 / -1340 Weight 149.731 kg 145.649 kg 144.8 kg 142.91 kg Microbiology Reports for the Last 24 Hours: Microbiology 03/18/24 09:12 Axilla,Left Gram Stain - Final 03/18/24 09:12 Axilla,Left Abscess Culture - Final Staphylococcus aureus The patient's infection will respond to the chosen ABx?: Yes Is the patient receiving the right drug, dose, and route?: Yes Could a more targeted ABx be ordered?: No (AFEBRILE, WBC STILL ELEVATED, STAPH AUREUS IN LEFT AXILLA WOUND CX.)
[2024-03-21] MEDS: VANCOMYCIN HCL 2,500 MG in 0.9 % SODIUM CHLORIDE 500 ML 250 MG IV (10:56)
[2024-03-21 11:04] LABS: POC Glucose,Bedside 265 (70-110)
--- NOTE | 2024-03-21 11:29 | P.CONPHA_ITS ---
Pharmacy Consult Date: 03/21/24 Time: 11:30 Referring provider: DR. RICE Reason for Consult:: VANCOMYCIN DOSING Allergies Allergy/AdvReac Type Severity Reaction Status Date / Time No Known Allergies Allergy Verified 12/30/23 15:19 Home Medications ?Medication ?Instructions ?Recorded ?Confirmed ?Type insulin glargine 100 unit/mL (3 80 unit (0.8 mL) SQ BID #15 mL 07/31/23 03/18/24 Rx mL) subcutaneous pen (Lantus Solostar U-100 Insulin) spironolactone 50 mg tablet 50 mg PO BID PRN Fluid #60 tabs 07/31/23 03/18/24 Rx torsemide 20 mg tablet 40 mg (2 x 20 mg) PO DAILY PRN 07/31/23 03/18/24 Rx diuretic #60 tabs desvenlafaxine succinate 50 mg 50 mg PO DAILY #90 tabs 10/31/23 03/18/24 Rx tablet,extended release 24 hr (Pristiq) diltiazem HCl 300 mg 300 mg PO DAILY #90 caps 12/30/23 03/18/24 Rx capsule,extended release 24 hr dulaglutide 0.75 mg/0.5 mL 0.75 mg (0.5 mL) SQ WEEKLY #2.5 mL 12/30/23 03/18/24 Rx subcutaneous pen injector (Trulicity) losartan 100 mg tablet 100 mg PO DAILY #90 tabs 12/30/23 03/18/24 Rx apixaban 5 mg tablet 5 mg PO BID atrial fibrillation 30 02/03/24 03/18/24 Rx days #60 tabs hydralazine 50 mg tablet 50 mg PO TID #90 tabs 02/03/24 03/18/24 Rx trazodone 150 mg tablet 150 mg PO HS #90 tabs 02/03/24 03/18/24 Rx gabapentin 300 mg capsule 300 mg PO TID #90 caps 02/13/24 03/18/24 Rx fluticasone propionate 50 2 spray intranasal DAILY PRN nasal 03/09/24 03/18/24 Rx mcg/actuation nasal congestion #16 grams spray,suspension sulfamethoxazole 800 1 tab PO BID #20 tabs 03/11/24 03/18/24 Rx mg-trimethoprim 160 mg tablet (Bactrim DS) cariprazine 3 mg capsule (Vraylar) 3 mg PO DAILY 03/18/24 03/18/24 History hydrocodone 5 mg-acetaminophen 325 1 tab PO TIDP PRN pain 03/18/24 03/18/24 History mg tablet hydroxyzine HCl 25 mg tablet 25 mg PO Q6HP PRN anxiety 03/18/24 03/18/24 History insulin aspart U-100 100 unit/mL 30 unit SQ DIRECTED 03/18/24 03/18/24 H istory (3 mL) subcutaneous pen New Prescriptions to Start Prescriptions: Height: 1.7 m Weight: 142.91 kg Laboratory Results:: Laboratory Results - last 24 hr 03/20/24 16:29: POC Glucose 426 H* 03/20/24 21:03: POC Glucose 345 H* 03/21/24 08:02: WBC 13.7 H, RBC 3.79 L, Hgb 10.4 L, Hct 32.9 L, MCV 86.8, MCH 27.4, MCHC 31.6 L, RDW 13.8, Plt Count 356, MPV 10.0, Neut % (Auto) 82.2 H, Lymph % (Auto) 8.6 L, [place] % (Auto) 5.3, Eos % (Auto) 0.8, Baso % (Auto) 0.6, Neut # (Auto) 11.2 H, Lymph # (Auto) 1.2, [place] # (Auto) 0.7, Eos # (Auto) 0.1, Baso # (Auto) 0.1, Sodium 133 L, Potassium 4.6, Chloride 101, Carbon Dioxide 26, Anion Gap 10.6, BUN 22 H, Creatinine 1.00, Estimated Creat Clear 64, Estimated GFR 59, Est GFR ( Amer) 71, Glucose 287 H, Calcium 9.0, Magnesium 2.2, Total Bilirubin 0.2, AST 26, ALT 24, Alkaline Phosphatase 71, C-Reactive Protein 51.0 H D, Total Protein 6.5, Albumin 3.3 L, Globulin 3.2, Albumin/Globulin Ratio 1.0 L, Procalcitonin 0.186, Vancomycin Trough 10.6 H 03/21/24 10:54: POC Glucose 265 H Medical History: Medical History (Updated 03/18/24 @ 03:55 by Jak Mcmanus RN) Below knee amputation Urinary tract infection Seizure disorder Fibromyalgia Cellulitis Pancreatitis History of gastroesophageal reflux (GERD) High blood pressure High cholesterol Afib Mood disorder CHF (congestive heart failure) Diabetes Tachycardia Assessment and Plan Assessment and plan all Dx Assessment and Plan for all problems:: PATIENT'S VANCOMYCIN TROUGH LEVEL WAS 10.6 MCG/ML THIS AM. RECOMMEND CONTINUING WITH VANCOMYCIN 2500 MG Q18H AT THIS TIME.
[2024-03-21] MEDS: humaLOG 100 UNITS/ML 10ML VIAL (SSI) 15 UNIT SUBCUT (11:57)
--- NOTE | 2024-03-21 12:23 | P.DS_ITS ---
General Admission date:: 03/18/24 Discharge date: 03/21/24 HPI HPI HPI: Patient is a 48-year-old female from [facility] with history of diabetes, coronary artery disease, atrial fibrillation on Eliquis, hypertension, gastroparesis, morbid obesity (BMI 52), hyperlipidemia, tobacco abuse, who presents to the emergency department in the late evening of 03/17/2024 with about a 3-day history right axillary pain described as a 10 out of 10 characterized as burning and stabbing. Evaluation in the emergency department revealed leukocytosis of 14,600, C-reactive protein 106.3, sed rate 48, glucose 288, hemoglobin A1c 8.3. Patient has apparently had history of complicated soft tissue infection secondary to diabetes including necrotizing fasciitis requiring right below-knee amputation in 2022. She underwent CT scan of the chest and shoulder which reveals intensely inflammatory left medial axillary focus suspicious for phlegmon/developing abscess. I have actually seen the patient and performed incision and drainage and debridement of right axillary abscess on 08/21/2022. Hospital Course Hospital Course Hospital Course: 48-year-old with past medical history of diabetes, mood disorder, obesity, hypertension, hyperlipidemia, CAD, atrial fibrillation on Eliquis HFpEF, tobacco user. Patient presents with 2 to 3 days right axillary pain and potential right axillary abscess noted on CT chest/shoulder. WBC 14.6, LA 1.9, CRP 106.3. Procalcitonin pending at time of admission. Taken for I&D on 03/18, washout performed 03/19, repeat washout and dressing change under anesthesia performed 03/20/2024. Patient has been tolerating dressing changes well. Transition from IV antibiotics to oral antibiotics to complete course. Sensitive to Doxy and Bactrim. Follow-up with surgery as an outpatient. Overall doing well. Discharged home with home health. Problems addressed as follows: Left axilla/shoulder abscess: ? Elevated white count and inflammatory markers on admission. Initiated broad- spectrum antibiotics with cefepime and vancomycin. Taken for multiple procedures with first debridement on 03/18. Repeat procedures daily on and . Wound showing improvement with source control. Transitioned to Bactrim to complete 7 days total from source control and doxycycline twice daily to complete 10 days total from source control. Patient showing clinical improvement. White count improving. CRP improving at 51 on day of discharge. Kidney function electrolytes normal. Given response to therapy, stable to discharge home. Will need packing change daily. Home health to assist with packing changes as an outpatient. Wound overall looking better. comfortable with assisting with dressing changes. Diabetes: ? Hemoglobin A1c 8.3 implying decent controlled diabetes. Continue basal bolus regimen at discharge. Would benefit from further adjustment as an outpatient. Chronic conditions, continued home regimens as follows: mood disorder: desvenlafaxine succinate 50mg PO daily, Ativan 1 mg p.o. every 12 as needed anxiety Insomnia trazodone 150 mg p.o. PRN nightly obesity: Recommend healthy eating habits hypertension: Losartan 100mg p.o. daily, hyperlipidemia: Atorvastatin 20 mg p.o. nightly HFpEF: As above in hypertension/hyperlipidemia section plus Lasix 20 mg IV daily as needed fluid, 10 mg IV hydralazine every 6 as needed SBP over 160. atrial fibrillation on Eliquis HFpEF: Hold Eliquis since patient may require I&D right axillary abscess in AM. Diltiazem 300 mg p.o. daily watch patient for signs of RVR during hospitalization on telemetry. Total time spent on discharge 36 minutes in counseling, documentation, chart review, and direct care with patient. Exam Data for Last 24 hours Vital signs and Labs for Last 24 Hours: Temp Pulse Resp BP Pulse Ox O2 Del Method O2 Flow Rate 98.2 F 57 L 17 133/69 95 Room Air 2 03/21/24 08:00 03/21/24 08:00 03/21/24 08:00 03/21/24 08:00 03/21/24 08:00 03/21/24 10:20 03/19/24 15:57 Laboratory Results - last 24 hr 03/20/24 16:29: POC Glucose 426 H* 03/20/24 21:03: POC Glucose 345 H* 03/21/24 08:02: WBC 13.7 H, RBC 3.79 L, Hgb 10.4 L, Hct 32.9 L, MCV 86.8, MCH 27.4, MCHC 31.6 L, RDW 13.8, Plt Count 356, MPV 10.0, Neut % (Auto) 82.2 H, Lymph % (Auto) 8.6 L, [place] % (Auto) 5.3, Eos % (Auto) 0.8, Baso % (Auto) 0.6, Neut # (Auto) 11.2 H, Lymph # (Auto) 1.2, [place] # (Auto) 0.7, Eos # (Auto) 0.1, Baso # (Auto) 0.1, Sodium 133 L, Potassium 4.6, Chloride 101, Carbon Dioxide 26, Anion Gap 10.6, BUN 22 H, Creatinine 1.00, Estimated Creat Clear 64, Estimated GFR 59, Est GFR ( Amer) 71, Glucose 287 H, Calcium 9.0, Magnesium 2.2, Total Bilirubin 0.2, AST 26, ALT 24, Alkaline Phosphatase 71, C-Reactive Protein 51.0 H D, Total Protein 6.5, Albumin 3.3 L, Globulin 3.2, Albumin/Globulin Ratio 1.0 L, Procalcitonin 0.186, Vancomycin Trough 10.6 H 03/21/24 10:54: POC Glucose 265 H I & O for Last 24 hours: Intake & Output 03/18/24 03/19/24 03/20/24 03/21/24 23:59 23:59 23:59 23:59 Intake Total 1460 / 1460 1060 / 1960 2530 / 2530 960 / 960 Output Total 0 / 300 850 / 850 1400 / 2500 1800 / 1800 Balance 1460 / 1160 210 / 1110 1130 / 30 -840 / -840 Weight 149.731 kg 145.649 kg 144.8 kg 142.91 kg Microbiology Reports for the Last 24 Hours: Microbiology 03/18/24 09:12 Axilla,Left Gram Stain - Final 03/18/24 09:12 Axilla,Left Abscess Culture - Final Staphylococcus aureus Constitutional Constitutional: no acute distress, morbidly obese, chronically ill appearing and cooperative *Routine HEENT Exam Head: Present normocephalic Eye: Present EOMI and PERRL ENT: Present mucous membranes moist *Routine Neck Exam Neck: Present supple; Absent lymphadenopathy *Routine Respiratory Exam Respiratory: Present CTA bilaterally and distant breath sounds; Absent rhonchi, wheezes or crackles *Routine Cardiovascular Exam Cardiovascular: Present RRR *Routine Abdominal Exam Abdominal: Present soft and normoactive bowel sounds; Absent tenderness *Routine Rectal Exam Patient deferred: visual exam *Routine Exam Patient deferred: external exam *Routine Extremities Exam Extremities: Present edema (bilateral lower extremities); Absent cyanosis or clubbing Comments: R BKA, sleeve in place; left axilla with bandage in place, improving erythema *Routine Skin Exam Skin: Present warm and wounds; Absent rash *Routine Neurological Exam Neurological: Present alert, oriented X3 and moving all extremities; Absent al tered mental status Results Data Completed and Pending Labs on day of discharge: Labs from last 24 hours 03/21/24 03/21/24 03/20/24 10:54 08:02 21:03 WBC 13.7 H RBC 3.79 L Hgb 10.4 L Hct 32.9 L MCV 86.8 MCH 27.4 MCHC 31.6 L RDW 13.8 Plt Count 356 MPV 10.0 Neut % (Auto) 82.2 H Lymph % (Auto) 8.6 L [place] % (Auto) 5.3 Eos % (Auto) 0.8 Baso % (Auto) 0.6 Neut # (Auto) 11.2 H Lymph # (Auto) 1.2 [place] # (Auto) 0.7 Eos # (Auto) 0.1 Baso # (Auto) 0.1 Sodium 133 L Potassium 4.6 Chloride 101 Carbon Dioxide 26 Anion Gap 10.6 BUN 22 H Creatinine 1.00 Estimated Creat Clear 64 Estimated GFR 59 Est GFR ( Amer) 71 Glucose 287 H POC Glucose 265 H 345 H* Calcium 9.0 Magnesium 2.2 Total Bilirubin 0.2 AST 26 ALT 24 Alkaline Phosphatase 71 C-Reactive Protein 51.0 H D Total Protein 6.5 Albumin 3.3 L Globulin 3.2 Albumin/Globulin Ratio 1.0 L Procalcitonin 0.186 Vancomycin Trough 10.6 H 03/20/24 16:29 WBC RBC Hgb Hct MCV MCH MCHC RDW Plt Count MPV Neut % (Auto) Lymph % (Auto) [place] % (Auto) Eos % (Auto) Baso % (Auto) Neut # (Auto) Lymph # (Auto) [place] # (Auto) Eos # (Auto) Baso # (Auto) Sodium Potassium Chloride Carbon Dioxide Anion Gap BUN Creatinine Estimated Creat Clear Estimated GFR Est GFR ( Amer) Glucose POC Glucose 426 H* Calcium Magnesium Total Bilirubin AST ALT Alkaline Phosphatase C-Reactive Protein Total Protein Albumin Globulin Albumin/Globulin Ratio Procalcitonin Vancomycin Trough Preliminary micro results at discharge 03/17/24 22:10 Blood Culture - Preliminary Blood NO GROWTH AFTER 48 HOURS 03/17/24 21:32 Blood Culture - Preliminary Blood NO GROWTH AFTER 48 HOURS DS: Diagnosis Discharge Diagnosis (1) Sepsis due to cellulitis: Status: Acute Code(s): L03.90 - Cellulitis, unspecified; A41.9 - Sepsis, unspecified organism (2) Abscess of axilla, left: Status: Acute Code(s): L02.412 - Cutaneous abscess of left axilla (3) General weakness: Status: Acute Code(s): R53.1 - Weakness (4) Afib: Status: Acute Code(s): I48.91 - Unspecified atrial fibrillation (5) Mood disorder: Status: Acute Code(s): F39 - Unspecified mood [affective] disorder (6) Diabetes mellitus: Status: Chronic Code(s): E11.9 - Type 2 diabetes mellitus without complications Qualifiers: Diabetes mellitus complication status: with other specified complication Diabetes mellitus snf insulin use: unspecified intermodal dispatcher insulin use status Diabetes mellitus type: type 2 Qualified Code(s): E11.69 - Type 2 diabetes mellitus with other specified complication (7) CAD (coronary artery disease): Status: Acute Code(s): I25.10 - Atherosclerotic heart disease of [place] coronary artery without angina pectoris Qualifiers: Associated angina: without angina Coronary Disease-Associated Artery/Lesion type: [place] artery [place] vs. transplanted heart: [place] heart Qualified Code(s): I25.10 - Atherosclerotic heart disease of [place] coronary artery without angina pectoris (8) (HFpEF) heart failure with preserved ejection fraction: Status: Chronic Code(s): I50.30 - Unspecified diastolic (congestive) heart failure Qualifiers: Heart failure chronicity: acute on chronic Qualified Code(s): I50.33 - Acute on chronic diastolic (congestive) heart failure (9) Morbid obesity: Status: Chronic Code(s): E66.01 - Morbid (severe) obesity due to excess calories (10) Malignant hypertension: Status: Chronic Code(s): I10 - Essential (primary) hypertension (11) HLD (hyperlipidemia): Status: Chronic Code(s): E78.5 - Hyperlipidemia, unspecified Qualifiers: Hyperlipidemia type: mixed hyperlipidemia Qualified Code(s): E78.2 - Mixed hyperlipidemia (12) HHD (hypertensive heart disease): Status: Chronic Code(s): I11.9 - Hypertensive heart disease without heart failure Qualifiers: Heart failure presence: without heart failure Qualified Code(s): I11.9 - Hypertensive heart disease without heart failure (13) Hypertensive urgency: Status: Resolved Code(s): I16.0 - Hypertensive urgency (14) PAF (paroxysmal atrial fibrillation): Status: Chronic Code(s): I48.0 - Paroxysmal atrial fibrillation Meds Home Medications and Allergies Home Medications ?Medication ?Instructions ?Recorded ?Confirmed ?Type insulin glargine 100 unit/mL (3 80 unit (0.8 mL) SQ BID #15 mL 07/31/23 03/18/24 Rx mL) subcutaneous pen (Lantus Solostar U-100 Insulin) spironolactone 50 mg tablet 50 mg PO BID PRN Fluid #60 tabs 07/31/23 03/18/24 Rx torsemide 20 mg tablet 40 mg (2 x 20 mg) PO DAILY PRN 07/31/23 03/18/24 Rx diuretic #60 tabs desvenlafaxine succinate 50 mg 50 mg PO DAILY #90 tabs 10/31/23 03/18/24 Rx tablet,extended release 24 hr (Pristiq) diltiazem HCl 300 mg 300 mg PO DAILY #90 caps 12/30/23 03/18/24 Rx capsule,extended release 24 hr dulaglutide 0.75 mg/0.5 mL 0.75 mg (0.5 mL) SQ WEEKLY #2.5 mL 12/30/23 03/18/24 Rx subcutaneous pen injector (Trulicity) losartan 100 mg tablet 100 mg PO DAILY #90 tabs 12/30/23 03/18/24 Rx apixaban 5 mg tablet 5 mg PO BID atrial fibrillation 30 02/03/24 03/18/24 Rx days #60 tabs hydralazine 50 mg tablet 50 mg PO TID #90 tabs 02/03/24 03/18/24 Rx trazodone 150 mg tablet 150 mg PO HS #90 tabs 02/03/24 03/18/24 Rx gabapentin 300 mg capsule 300 mg PO TID #90 caps 02/13/24 03/18/24 Rx fluticasone propionate 50 2 spray intranasal DAILY PRN nasal 03/09/24 03/18/24 Rx mcg/actuation nasal congestion #16 grams spray,suspension cariprazine 3 mg capsule (Vraylar) 3 mg PO DAILY 03/18/24 03/18/24 History hydrocodone 5 mg-acetaminophen 325 1 tab PO TIDP PRN pain 03/18/24 03/18/24 History mg tablet hydroxyzine HCl 25 mg tablet 25 mg PO Q6HP PRN anxiety 03/18/24 03/18/24 History insulin aspart U-100 100 unit/mL 30 unit SQ DIRECTED 03/18/24 03/18/24 History (3 mL) subcutaneous pen doxycycline hyclate 100 mg capsule 100 mg PO BID 7 days #20 caps 03/21/24 Rx sulfamethoxazole 800 1 tab PO BID 4 days #7 tabs 03/21/24 Rx mg-trimethoprim 160 mg tablet (Bactrim DS) New Prescriptions to Start Prescriptions: doxycycline hyclate Mahamed Benavides sulfamethoxazole-trimethoprim [Bactrim DS] Mahamed Benavides Allergies Allergy/AdvReac Type Severity Reaction Status Date / Time No Known Allergies Allergy Verified 12/30/23 15:19 Discharge Plan Disposition Patient Disposition: Home Health Service Condition: Good Discharge Order Discharge Orders: Discharge Order (Routine); Ordered 03/21/24 Ordered By: Mahamed Benavides Follow up Plan Follow up with: Luther Muhammad MD [Staff Physician] - 03/26/24 1:45 pm Carlos Dean MD [Primary Care Provider] - 03/27/24 10:00 am Prescriptions/Medication Reconciliation: New doxycycline hyclate 100 mg capsule 100 mg PO BID 7 Days Qty: 20 0RF Continued desvenlafaxine succinate [Pristiq] 50 mg tablet extended release 24 hr 50 mg PO DAILY Qty: 90 3RF diltiazem HCl 300 mg capsule,extended release 24hr 300 mg PO DAILY Qty: 90 3RF losartan 100 mg tablet 100 mg PO DAILY Qty: 90 3RF Trulicity 0.75 mg/0.5 mL pen injector 0.75 mg SQ WEEKLY Qty: 2.5 2RF insulin glargine [Lantus Solostar U-100 Insulin] 100 unit/mL (3 mL) insulin pen 80 unit SQ BID Qty: 15 10RF spironolactone 50 mg tablet 50 mg PO BID PRN (Reason: Fluid) Qty: 60 5RF torsemide 20 mg tablet 40 mg PO DAILY PRN (Reason: diuretic) Qty: 60 5RF hydralazine 50 mg tablet 50 mg PO TID Qty: 90 2RF trazodone 150 mg tablet 150 mg PO HS Qty: 90 3RF apixaban 5 mg tablet 5 mg PO BID 30 Days Qty: 60 10RF gabapentin 300 mg capsule 300 mg PO TID Qty: 90 5RF fluticasone propionate 50 mcg/actuation spray,suspension 2 spray intranasal DAILY PRN (Reason: nasal congestion) Qty: 16 5RF Rx Instructions: administer into each nostril hydrocodone-acetaminophen 5-325 mg tablet 1 tab PO TIDP PRN (Reason: pain) Rx Instructions: one every 8 hours to control severe pain hydroxyzine HCl 25 mg tablet 25 mg PO Q6HP PRN (Reason: anxiety) insulin aspart U-100 100 unit/mL (3 mL) insulin pen 30 unit SQ DIRECTED Rx Instructions: INJECT 30 UNITS FOR BLOOD SUGAR OVER 300. REPEAT IN 4 HOURS UNTIL BLOOD SUGAR IS UNDER CONTROL. ESTIMATED 150 UNITS/DAY. Vraylar 3 mg capsule 3 mg PO DAILY sulfamethoxazole-trimethoprim [Bactrim DS] 800-160 mg tablet 1 tab PO BID 4 Days Qty: 7 0RF Rx Instructions: LAST DOSE 03/21/24 Problem Reconciliation Problems Reviewed?: Yes Patient Discharge Instructions ACTIVITY: Continue current activity and Ambulate as tolerated DIET: continue same diet and diabetic diet Patient Instructions: Low Glycemic Index Diets (Alternative Therapy), Carbohy drate-Counting Diet, DI for Incision and Drainage of a Skin Abscess, Incision and Drainage of a Skin Abscess, DI for Surgical Site Infection, DI for Skin Abscess Print Language: [place] Providers Primary Care Provider: Carlos Dean Admit Provider: Mahamed Benavides Attending Provider: Mahamed Benavides
--- NOTE | 2024-03-24 11:57 | SW/DCPLANNER ---
spoke with patient on the phone. Patient stated that she is doing well. Patient stated that home health is coming the 2nd to do her dressing change and that her has been doing them. Patient stated that she was able to get her new medicine filled and that she is aware of her upcoming appointments. Patient stated that she has no concerns or questions at this time. Bc [facility]
== END 2024-03-21 13:55 | disposition home health service (06) | DRG 580 ==
LOC: ER 23:59 → 2ND 03-18 00:41
PROVIDERS: Internal Medicine; Surgery; Admitting Provider Internal Medicine Adolescent Medicine; Emergency Provider Emergency Medicine; PCP Family Medicine; Visit Provider Internal Medicine Adolescent Medicine
PROC: 0X950ZX Drainage of Left Axilla, Open Approach, Diagnostic (ICD-10-PCS; principal; 2024-03-18 09:00)
PROC: 0JDF0ZZ Extraction of Left Upper Arm Subcutaneous Tissue and Fascia, Open Approach (ICD-10-PCS; principal; 2024-03-19 15:00)
DX: L02.412 Cutaneous abscess of left axilla (principal); I50.32 Chronic diastolic (congestive) heart failure; L03.112 Cellulitis of left axilla; F17.210 Nicotine dependence, cigarettes, uncomplicated; F39 Unspecified mood [affective] disorder; E11.69 Type 2 diabetes mellitus with other specified complication; I25.10 Atherosclerotic heart disease of native coronary artery without angina pectoris; E66.01 Morbid (severe) obesity due to excess calories; I11.0 Hypertensive heart disease with heart failure; I16.0 Hypertensive urgency; I48.0 Paroxysmal atrial fibrillation; Z79.4 Long term (current) use of insulin; Z79.01 Long term (current) use of anticoagulants; B95.61 Methicillin susceptible Staphylococcus aureus infection as the cause of diseases classified elsewhere
CPT/HCPCS: 36415; 71260; 73201; 80048; 80053; 80202; 82962; 83036; 83605; 83735; 84145; 84703; 85007; 85025; 85651; 86140; 86803; 87040; 87070; 87075; 87077; 87186; 87205; 87389; 99252; 99285; J0692; J0696; J0736; J1100; J2060; J2250; J2270; J2405; J3010; J3370; Q9967

== ENCOUNTER 2024-06-01 12:00 | Outpatient (CLI) | payer MEDICAID, SELFPAY ==
[2024-06-01 18:25] LABS: Basophils % 0.2 % (0.1-2.0); Eosinophils # 0.3 K/mm3 (0.0-0.4); Eosinophils % 2.6 % (0.1-12.0); Hemoglobin 12.6 g/dL (12.2-16.2); Lymphocytes # 1.6 K/mm3 (0.7-4.5); Lymphocytes % 15.6 % (10-50); Mean Corpuscular HGB Conc 31.5 g/dL (31.8-35.4); Mean Corpuscular Hemoglobin 26.9 pg (27.0-31.2); Mean Corpuscular Volume 85.3 fl (81-99); Mean Platelet Volume 10.3 fl (7.4-10.4); Monocytes # 0.6 K/mm3 (0.1-1.0); Monocytes % 6.2 % (1.7-9.3); Neutrophils # 7.5 K/mm3 (1.8-7.8); Platelet Count 266 K/mm3 (142-424); Red Blood Count 4.69 M/mm3 (4.20-5.40); Red Cell Distribution Width 14.6 % (11.5-17.5)
[2024-06-01 19:15] LABS: Albumin Level 3.7 g/dl (3.5-5.0); Chloride 104 mmol/L (98-107); Sodium 138 mmol/L (136-145)
[2024-06-01 19:16] LABS: Potassium 3.6 mmoL/L (3.5-5.1)
[2024-06-01 19:18] LABS: Alanine Aminotransferase 27 U/L (12-78); Albumin/Globulin Ratio 1.2 (1.1-1.8); Anion Gap 10.6 mEq/L (5-15); Aspartate Amino Transferase 29 U/L (14-36); Blood Urea Nitrogen 12 mg/dl (7-17); Carbon Dioxide 27 mmol/L (22.0-30.0); Estimated Glomerular Filt Rate 76 ml/min (>60); GFR (African American) 92 ML/MIN (>60); Total Protein,Serum 6.7 g/dl (6.3-8.2)
[2024-06-01 19:19] LABS: Alkaline Phosphatase 102 U/L (38-126); Bilirubin,Total 0.6 mg/dl (0.2-1.3); Chol/HDL Ratio 2.7 (1-3.5); Cholesterol 140 mg/dl (140-200); Glucose 137 mg/dl (74-100); HDL Cholesterol 51 mg/dl (40-60); Triglycerides 187 mg/dl (30-150); VLDL Cholesterol 37 mg/dL (0-40)
[2024-06-01 19:32] LABS: Direct LDL Cholesterol 58.26 mg/dL (100-129)
[2024-06-03 10:39] LABS: C-Peptide 1.7 ng/mL (1.1-4.4)
== END 2024-06-01 23:59 | disposition home or self-care (01) ==
LOC: LAB.DROPOF 06-02 12:29
PROVIDERS: PCP Family Medicine; Visit Provider Family Medicine
DX: E11.69 Type 2 diabetes mellitus with other specified complication (principal); E78.2 Mixed hyperlipidemia; Z79.4 Long term (current) use of insulin; Z79.85 Long-term (current) use of injectable non-insulin antidiabetic drugs
CPT/HCPCS: 80053; 80061; 84443; 84681; 85025

== ENCOUNTER 2024-06-13 15:10 | Emergency (ER) | payer MEDICAID, SELFPAY ==
[2024-06-13 15:22] VITALS: BP 189/112; PULSE 80; RESP 20; TEMP 36.8; O2SAT 98; BMI 50.1
--- NOTE | 2024-06-13 15:26 | CT_ITS ---
PROCEDURE INFORMATION: Exam: CTA Chest With Contrast Exam date and time: 06/13/2024 4:10 PM Age: 48 years old Clinical indication: Shortness of breath; Additional info: Short of breath TECHNIQUE: Imaging protocol: Computed tomographic angiography of the chest with contrast. Exam focused on the arteries. 3D rendering (Not supervised by radiologist): MIP and/or 3D reconstructed images were created by the technologist. Radiation optimization: All CT scans at this facility use at least one of these dose optimization techniques: automated exposure control; mA and/or kV adjustment per patient size (includes targeted exams where dose is matched to clinical indication); or iterative reconstruction. Contrast material: ISOVEUE; Contrast volume: 70 ml; Contrast route: INTRAVENOUS (IV); COMPARISON: CT CHEST W CON 03/17/2024 11:27 PM FINDINGS: Pulmonary arteries: Normal. No pulmonary emboli. Aorta: Unremarkable. No aortic aneurysm. No aortic dissection. Lungs: Unremarkable. No consolidation. No masses. Pleural spaces: Unremarkable. No pneumothorax. No pleural effusion. Heart: Unremarkable. No cardiomegaly. No pericardial effusion. Lymph nodes: Unremarkable. No enlarged lymph nodes. Bones/joints: Unremarkable. No acute fracture. Soft tissues: Unremarkable. IMPRESSION: No acute findings. Study limited due to motion artifact.
--- NOTE | 2024-06-13 15:37 | PC.NURSE ---
RT AWARE OF VBG
--- NOTE | 2024-06-13 15:38 | ED_ITS ---
Discharge Plan Disposition Patient Disposition: Home, Self-Care Condition: Good Prescriptions Prescriptions: New furosemide [Lasix] 20 mg tablet 20 mg PO DAILY Qty: 7 0RF No Action diltiazem HCl 300 mg capsule,extended release 24hr 300 mg PO DAILY Qty: 90 3RF apixaban 5 mg tablet 5 mg PO BID 30 Days Qty: 60 10RF hydrocodone-acetaminophen 5-325 mg tablet 1 tab PO TIDP PRN (Reason: pain) Qty: 45 0RF Rx Instructions: one every 8 hours to control severe pain Vraylar 3 mg capsule 3 mg PO DAILY Qty: 90 3RF desvenlafaxine succinate [Pristiq] 50 mg tablet extended release 24 hr 50 mg PO DAILY Qty: 90 3RF Trulicity 0.75 mg/0.5 mL pen injector 0.75 mg SQ WEEKLY Qty: 2.5 2RF hydralazine 50 mg tablet 50 mg PO TID Qty: 90 2RF insulin aspart U-100 100 unit/mL (3 mL) insulin pen 30 unit SQ DIRECTED Qty: 15 10RF Rx Instructions: INJECT 30 UNITS FOR BLOOD SUGAR OVER 300. REPEAT IN 4 HOURS UNTIL BLOOD SUGAR IS UNDER CONTROL. ESTIMATED 150 UNITS/DAY. insulin glargine [Lantus Solostar U-100 Insulin] 100 unit/mL (3 mL) insulin pen 80 unit SQ BID Qty: 15 10RF losartan 100 mg tablet 100 mg PO DAILY Qty: 90 3RF spironolactone 50 mg tablet 50 mg PO BID PRN (Reason: Fluid) Qty: 60 5RF torsemide 20 mg tablet 40 mg PO DAILY PRN (Reason: diuretic) Qty: 60 0RF trazodone 150 mg tablet 150 mg PO HS Qty: 90 3RF gabapentin 300 mg capsule 300 mg PO TID Qty: 90 5RF fluticasone propionate 50 mcg/actuation spray,suspension 2 spray intranasal DAILY PRN (Reason: nasal congestion) Qty: 16 5RF Rx Instructions: administer into each nostril hydroxyzine HCl 25 mg tablet 25 mg PO Q6HP PRN (Reason: anxiety) Referrals Follow up/Referrals: Carlos Daen MD [Primary Care Provider] - See instructions Clinical Impressions Clinical Impression: Edema Instructions Patient Instructions: DI for Peripheral Edema-Unilateral Print Language Print Language: [place] Citizen Discharge ED Provider: Elise Rey General Adult HPI <Ximena Sotelo (ED), FORENSIC INVESTIGATOR - Last Filed: 06/13/24 18:07> General Chief complaint: Shortness of Breath/Dyspnea Stated complaint: LT hand swelling, SOA Time Seen by Provider: 06/13/24 15:21 Mode of Arrival: Wheelchair Source of Information: Patient Description of Symptoms (Recalled from ER Triage Doc. by RN): pt feels swelled. left hand in particular,short of breath. blister on left calf. x 1 week History of Present Illness HPI narrative: This is a 48-year-old female who presents to the ED today with left arm swelling, shortness of breath, and a blister on her left lower jones. She has A- fib and is on Eliquis, diabetes and has a Dexcom 6 but is about to do an insulin pump. Patient does have history of heart failure. She is a right lower leg amputee as of 2022. She says this is all been going on for about a week. She has difficulty lying flat. She went to Dr. Dean and was prescribed meds for her edema but these do not seem to be working. He told her to come to the emergency room for evaluation. Related Data Home Medications ?Medication ?Instructions ?Recorded ?Confirmed hydroxyzine HCl 25 mg tablet 25 mg PO Q6HP PRN anxiety 03/18/24 06/01/24 Previous Rx's ?Medication ?Instructions ?Recorded gabapentin 300 mg capsule 300 mg PO TID #90 caps 02/13/24 fluticasone propionate 50 2 spray intranasal DAILY PRN nasal 03/09/24 mcg/actuation nasal congestion #16 grams spray,suspension apixaban 5 mg tablet 5 mg PO BID atrial fibrillation 30 06/01/24 days #60 tabs cariprazine 3 mg capsule (Vraylar) 3 mg PO DAILY #90 caps 06/01/24 desvenlafaxine succinate 50 mg 50 mg PO DAILY #90 tabs 06/01/24 tablet,extended release 24 hr (Pristiq) diltiazem HCl 300 mg 300 mg PO DAILY #90 caps 06/01/24 capsule,extended release 24 hr dulaglutide 0.75 mg/0.5 mL 0.75 mg (0.5 mL) SQ WEEKLY #2.5 mL 06/01/24 subcutaneous pen injector (Trulicity) hydralazine 50 mg tablet 50 mg PO TID #90 tabs 06/01/24 hydrocodone 5 mg-acetaminophen 325 1 tab PO TIDP PRN pain #45 tabs 06/01/24 mg tablet insulin aspart U-100 100 unit/mL 30 unit (0.3 mL) SQ DIRECTED 06/01/24 (3 mL) subcutaneous pen #15 mL insulin glargine 100 unit/mL (3 80 unit (0.8 mL) SQ BID #15 mL 06/01/24 mL) subcutaneous pen (Lantus Solostar U-100 Insulin) losartan 100 mg tablet 100 mg PO DAILY #90 tabs 06/01/24 spironolactone 50 mg tablet 50 mg PO BID PRN Fluid #60 tabs 06/01/24 torsemide 20 mg tablet 40 mg (2 x 20 mg) PO DAILY PRN 06/01/24 diuretic #60 tabs trazodone 150 mg tablet 150 mg PO HS #90 tabs 06/01/24 furosemide 20 mg tablet (Lasix) 20 mg PO DAILY #7 tabs 06/13/24 Allergies Allergy/AdvReac Type Severity Reaction Status Date / Time No Known Allergies Allergy Verified 06/01/24 10:03 [facility] <Ximena Sotelo (ED), FORENSIC INVESTIGATOR - Last Filed: 06/13/24 18:07> [facility] Disclaimer: The information contained in this section may have been updated after the patient was seen, as this information can be updated by other users. Medical History Acute pancreatitis Family history of lymphoma Below knee amputation Urinary tract infection Seizure disorder Fibromyalgia Cellulitis Pancreatitis History of gastroesophageal reflux (GERD) High blood pressure High cholesterol Afib Mood disorder CHF (congestive heart failure) Diabetes Tachycardia Surgical History History of cholecystectomy History of appendectomy History of section History of hysterectomy History of colonoscopy Family History Other Family history of cancer Family history of myocardial infarction Family history of stroke Social History (Updated 06/01/24 @ 10:05 by Luz Rivera MA) Smoking Status: Never smoker second hand exposure: Yes alcohol intake: former substance use type: denies use current occupational status: disabled Travel in the last 8 weeks: None household members: spouse housing: house current occupational exposures/hazards: No caffeine: Yes Have you lived/traveled outside [place] in past 30 days?: No Contact w/someone who lives/traveled outside US past 30 days?: No Exposure to someone with infectious disease in past 14 days?: No Do you have a fever (greater than 100.4 F or 38 C)?: No Have you tested positive for COVID-19: No Exposed to someone with COVID-19 in past 14 days?: No Do you have a sore throat?: No Do you have a cough?: No Do you have any weakness?: No Do you have any diarrhea?: No Are you experiencing any unusual bleeding?: No Do you have any muscle aches/pain?: No Do you have any abdominal pain?: No Are you experiencing loss of taste or smell?: No Other Medical History Have you received the Flu Vaccine for this season: No Have you received the Pneumonia Vaccine: No <Ximena Sotelo (ED), FORENSIC INVESTIGATOR - Last Filed: 06/13/24 18:07> ROS Obtained: Yes Systems reviewed as appropriate & no additional complaints except as documented Constitutional Constitutional: Reports as per HPI Physical Exam <Ximena Sotelo (ED), FORENSIC INVESTIGATOR - Last Filed: 06/13/24 18:07> General General appearance: alert and in no apparent distress Head Head exam: atraumatic and normocephalic Eye Eye exam: Present normal appearance, PERRL and EOMI Neck Neck exam: Present normal inspection, full ROM and trachea midline Respiratory Respiratory exam: Present normal lung sounds bilaterally Cardiovascular Cardiovascular exam: Present regular rate, normal rhythm, normal heart sounds, +S1 and +S2 Extremities Exam Extremities exam: Present full ROM, normal capillary refill and edema (Left upper extremity with edema) Neurological Exam Neurological exam: Present alert, oriented X3 and normal gait Skin Skin exam: Present warm, dry and intact Medical Decision Making <Ximena Sotelo (ED), FORENSIC INVESTIGATOR - Last Filed: 06/13/24 18:07> Medical Records Screening: Per USPSTF and CDC recommendations, given the prevalence of disease in our region, it is our hospital?s policy to screen for HIV and viral Hepatitis for all patients aged 18 and over and those with ongoing risk factors. Goyo Inquiry Pt receiving controlled substance: No Goyo was queried for this patient: No Vital Signs: 06/13/24 15:22 06/13/24 16:21 06/13/24 16:22 Temperature 98.3 F Temperature Source Oral Pulse Rate 94 H 82 Pulse Rate [Right] 80 Respiratory Rate 20 18 Blood Pressure 187/85 H 163/96 H Blood Pressure [Right Arm] 189/112 H Blood Pressure Mean 122 118 Blood Pressure Mean [Right Arm] 137 Blood Pressure Source 02 Sat by Pulse Oximetry 98 98 97 Oxygen Delivery Method Room Air 06/13/24 16:30 06/13/24 17:25 06/13/24 18:26 Temperature 98.0 F Temperature Source Pulse Rate 81 85 85 Pulse Rate [Right] Respiratory Rate 18 20 Blood Pressure 166/100 H 168/80 H 142/75 H Blood Pressure [Right Arm] Blood Pressure Mean 114 105 Blood Pressure Mean [Right Arm] Blood Pressure Source Automatic Cuff 02 Sat by Pulse Oximetry 97 99 Oxygen Delivery Method Room Air Lab Data Lab Results 06/13/24 15:25: VBG pH 7.36, VBG pCO2 46.8, VBG pO2 41.1 H, VBG HCO3 25.6, VBG Total CO2 27.0, VBG O2 Saturation 74.4 H, VBG Base Excess 0.1, VBG Lactic Acid 3.6 H 06/13/24 15:27: WBC 9.8, RBC 4.69, Hgb 12.8, Hct 39.0, MCV 83.2, MCH 27.3, MCHC 32.8, RDW 14.4, Plt Count 253, MPV 9.3, Neut % (Auto) 78.1, Lymph % (Auto) 12.6, [place] % (Auto) 5.6, Eos % (Auto) 2.7, Baso % (Auto) 0.4, Neut # (Auto) 7.7, Lymph # (Auto) 1.2, [place] # (Auto) 0.6, Eos # (Auto) 0.3, Baso # (Auto) 0.0, D-Dimer 0.40, Sodium 140, Potassium 4.1, Chloride 105, Carbon Dioxide 28, Anion Gap 11.1, BUN 11, Creatinine 0.70, Estimated Creat Clear 95, Estimated GFR 89, Est GFR ( Amer) 108, Glucose 191 H, Calcium 9.2, Magnesium 1.9, Total Bilirubin 1.0, AST 33, ALT 30, Alkaline Phosphatase 73, Troponin I 0.02, N T-Pro-B Natriuret Pep 397 H, Total Protein 7.6, Albumin 4.2, Globulin 3.4 H, Albumin/Globulin Ratio 1.2, Lipase 72 06/13/24 15:27 06/13/24 15:27 Orders (Tests/Meds): ED MEDICATIONS Discontinued Medications Generic Name Dose Route Start Last Admin Trade Name Freq PRN Reason Stop Dose Admin Iopamidol 70 ml 06/13/24 16:16 06/13/24 16:17 Iopamidol-370 (76%);100ml Bottle IV 06/13/24 16:17 70 ml ONCE ONE Administration Lorazepam 1 mg 06/13/24 16:00 06/13/24 16:28 Lorazepam 2mg/Ml Vial IV 06/13/24 16:01 Not Given ONCE ONE Sodium Chloride 10 ml 06/13/24 16:00 Sodium Chloride 0.9% 10ml Vial IV 07/13/24 15:59 NEEDED PRN to Dilute Lorazepam inj Sodium Chloride 50 ml 06/13/24 16:16 06/13/24 16:17 0.9 % Sodium Chloride 50 Ml Vial IV 06/13/24 16:17 50 ml ONCE ONE Administration Sodium Chloride 10 ml 06/13/24 16:16 06/13/24 16:17 Sodium Chloride 0.9% 10ml Syr (Rad Only) IV 07/13/24 16:15 10 ml NEEDED PRN Administration Maintain IV Site ORDERS Category Date Time Status CTA Chest [CT angio chest PE protocol] Stat Cat Scan 06/13/24 15:26 Completed POCUS Point of Care (ER Only) Stat Exams 06/13/24 16:10 Completed BNP [NT Pro Brain Natriuretic Pep.] Stat Lab 06/13/24 15:27 Completed CBC [Complete Blood Count Auto Diff] Stat Lab 06/13/24 15:27 Completed Comprehensive Metabolic Panel Stat Lab 06/13/24 15:27 Completed D-Dimer Stat Lab 06/13/24 15:27 Completed Lipase Stat Lab 06/13/24 15:27 Completed Magnesium Stat Lab 06/13/24 15:27 Completed Troponin I Stat Lab 06/13/24 15:27 Completed Venous Blood Gas Stat RT 06/13/24 15:25 Completed CA venous doppler UE LT Stat Y 06/13/24 15:27 Stop Req Medical Decision Narrative: Insert review patient is a 48-year-old female presenting to the emergency department for evaluation of left arm swelling and shortness of breath.. Patient is hemodynamically stable and nontoxic-appearing upon arrival, afebrile. Differential diagnosis includes PE, CHF, blood clot among others. Workup will be conducted with hematologic labs, specific imaging, provocative tests. Initial inventions include crystalloid bolus, analgesics, antibiotics, etc.. Initial workup reviewed by me hematologic labs are remarkable for nonactionable labs, POCUS negative for blood clot. Formal imaging read remarkable for negative CTA .upon repeat evaluation patient is improved. Due to this [additional interventions, patient is appropriate for discharge. She is going to follow-up with PCP as scheduled <Elise Rey, - Last Filed: 06/14/24 00:06> Vital Signs: 06/13/24 15:22 06/13/24 16:21 06/13/24 16:22 Temperature 98.3 F Temperature Source Oral Pulse Rate 94 H 82 Pulse Rate [Right] 80 Respiratory Rate 20 18 Blood Pressure 187/85 H 163/96 H Blood Pressure [Right Arm] 189/112 H Blood Pressure Mean 122 118 Blood Pressure Mean [Right Arm] 137 Blood Pressure Source 02 Sat by Pulse Oximetry 98 98 97 Oxygen Delivery Method Room Air 06/13/24 16:30 06/13/24 17:25 06/13/24 18:26 Temperature 98.0 F Temperature Source Pulse Rate 81 85 85 Pulse Rate [Right] Respiratory Rate 18 20 Blood Pressure 166/100 H 168/80 H 142/75 H Blood Pressure [Right Arm] Blood Pressure Mean 114 105 Blood Pressure Mean [Right Arm] Blood Pressure Source Automatic Cuff 02 Sat by Pulse Oximetry 97 99 Oxygen Delivery Method Room Air Lab Data Lab Results 06/13/24 15:25: VBG pH 7.36, VBG pCO2 46.8, VBG pO2 41.1 H, VBG HCO3 25.6, VBG Total CO2 27.0, VBG O2 Saturation 74.4 H, VBG Base Excess 0.1, VBG Lactic Acid 3.6 H 06/13/24 15:27: WBC 9.8, RBC 4.69, Hgb 12.8, Hct 39.0, MCV 83.2, MCH 27.3, MCHC 32.8, RDW 14.4, Plt Count 253, MPV 9.3, Neut % (Auto) 78.1, Lymph % (Auto) 12.6, [place] % (Auto) 5.6, Eos % (Auto) 2.7, Baso % (Auto) 0.4, Neut # (Auto) 7.7, Lymph # (Auto) 1.2, [place] # (Auto) 0.6, Eos # (Auto) 0.3, Baso # (Auto) 0.0, D-Dimer 0.40, Sodium 140, Potassium 4.1, Chloride 105, Carbon Dioxide 28, Anion Gap 11.1, BUN 11, Creatinine 0.70, Estimated Creat Clear 95, Estimated GFR 89, Est GFR ( Amer) 108, Glucose 191 H, Calcium 9.2, Magnesium 1.9, Total Bilirubin 1.0, AST 33, ALT 30, Alkaline Phosphatase 73, Troponin I 0.02, N T-Pro-B Natriuret Pep 397 H, Total Protein 7.6, Albumin 4.2, Globulin 3.4 H, Albumin/Globulin Ratio 1.2, Lipase 72 Orders (Tests/Meds): ED MEDICATIONS Discontinued Medications Generic Name Dose Route Start Last Admin Trade Name Freq PRN Reason Stop Dose Admin Iopamidol 70 ml 06/13/24 16:16 06/13/24 16:17 Iopamidol-370 (76%);100ml Bottle IV 06/13/24 16:17 70 ml ONCE ONE Administration Lorazepam 1 mg 06/13/24 16:00 06/13/24 16:28 Lorazepam 2mg/Ml Vial IV 06/13/24 16:01 Not Given ONCE ONE Sodium Chloride 10 ml 06/13/24 16:00 Sodium Chloride 0.9% 10ml Vial IV 07/13/24 15:59 NEEDED PRN to Dilute Lorazepam inj Sodium Chloride 50 ml 06/13/24 16:16 06/13/24 16:17 0.9 % Sodium Chloride 50 Ml Vial IV 06/13/24 16:17 50 ml ONCE ONE Administration Sodium Chloride 10 ml 06/13/24 16:16 06/13/24 16:17 Sodium Chloride 0.9% 10ml Syr (Rad Only) IV 07/13/24 16:15 10 ml NEEDED PRN Administration Maintain IV Site ORDERS Category Date Time Status CTA Chest [CT angio chest PE protocol] Stat Cat Scan 06/13/24 15:26 Completed POCUS Point of Care (ER Only) Stat Exams 06/13/24 16:10 Completed BNP [NT Pro Brain Natriuretic Pep.] Stat Lab 06/13/24 15:27 Completed CBC [Complete Blood Count Auto Diff] Stat Lab 06/13/24 15:27 Completed Comprehensive Metabolic Panel Stat Lab 06/13/24 15:27 Completed D-Dimer Stat Lab 06/13/24 15:27 Completed Lipase Stat Lab 06/13/24 15:27 Completed Magnesium Stat Lab 06/13/24 15:27 Completed Troponin I Stat Lab 06/13/24 15:27 Completed Venous Blood Gas Stat RT 06/13/24 15:25 Completed CA venous doppler UE LT Stat Y 06/13/24 15:27 Stop Req ECG Data Tracing #1: I reviewed this ECG and interpreted as documented below: Normal sinus rhythm with a ventricular rate of [address] changes concerning for STEMI. Left anterior fascicular block. Otherwise, normal intervals ECG initial impression date: 06/13/24 ECG initial impression time: 15:42 Medical Decision Narrative: Insert review patient is a 48-year-old female presenting to the emergency department for evaluation of left arm swelling and shortness of breath.. Patient is hemodynamically stable and nontoxic-appearing upon arrival, afebrile. Differential diagnosis includes PE, CHF, blood clot among others. Workup will be conducted with hematologic labs, specific imaging, provocative tests. Initial inventions include crystalloid bolus, analgesics, antibiotics, etc.. Initial workup reviewed by me hematologic labs are remarkable for nonactionable labs, POCUS negative for blood clot. Formal imaging read remarkable for negative CTA .upon repeat evaluation patient is improved. Due to this [additional interventions, patient is appropriate for discharge. She is going to follow-up with PCP as scheduled DO Candido: I was consulted by the MONICA, and we discussed the complexity of the problems being addressed. I approved the treatment and management plan for this patient's care in the emergency department, thus performing a substantive portion of the medical decision making. Patient arrives complaining of left arm swelling and shortness of breath. On further assessment, she also has left lower extremity edema as well. She does have a history of heart failure. She has a blister noted on the medial aspect of the left lower leg without surrounding signs concerning for infection. It is clear and fluid-filled. She is not sure what could have happened, trauma or otherwise. Overall, exam is very reassuring without evidence of acute infection. Workup included broad lab evaluation to evaluate for infectious, metabolic, cardiac issues. I performed a bedside DVT ultrasound of the left upper extremity and noted no concerns for DVT. CTA of the chest was performed given the shortness of breath and the left arm swelling which was reassuring with no PE, no obvious acute pulmonary edema on my independent interpretation. Please see radiology read for final interpretation. BNP is slightly more elevated than prior. She takes spironolactone at home but is not on another diuretic. Is possible she could be having a mild exacerbation of heart failure versus dependent edema. Will trial a short course of Lasix and have her follow-up very closely with cardiology as well as primary care. Patient was discharged with instructions for close follow-up and very strict return precautions. Elise Rey DO Procedures <Elise Rey DO - Last Filed: 06/14/24 00:06> Limited Ultrasound Findings:: Limited DVT ultrasound Indication: Limited compression ultrasonography of the left upper extremity was performed to evaluate for non-compressibility of the deep veins in the patient. The ultrasound was performed with the following indications, as noted in the H&P: Left arm pain and swelling Identified structures: Left [Ulnar vein, radial vein, cephalic vein, basilic vein, axillary vein.] Findings: Upper extremity: Left UV: Good compressibility Left RV: Good compressibility Left Cephalic vein: Good compressibility Left Basilic vein: Good compressibility Left Axillary vein: Good compressibility Impression: No DVT noted in the left upper extremity. She does have cobblestoning/fluid consistent with soft tissue edema Images were saved to permanent archive The study was technically adequate CPT: 99136-30-RH This study was performed by me, and I personally interpreted all images/videos. Based on my clinical judgement, these images were adequate and did not necessitate further imaging. Critical Care <Ximena Sotelo (NASRIN), FORENSIC INVESTIGATOR - Last Filed: 06/13/24 18:07> Critical Care Time Critical Care Time: No
--- NOTE | 2024-06-13 15:40 | ECG_ITS ---
APPROVED REPORT Exam: Resting ECG HR:84 bpm ECG Measurements Heart Rate 84 AXES MS 178 P 62 QRSd 84 QRS -50 QT 385 T 65 QTc 426 Conclusion SINUS RHYTHM LEFT ANTERIOR FASCICULAR BLOCK [QRS AXIS <= -45, QR IN I, RS IN II] Q WAVE IN V1-V4 No STEMI Electronically signed by : TANYA BALES, 06/14/2024 00:54:58
[2024-06-13 15:44] LABS: Basophils % 0.4 % (0.1-2.0); Eosinophils # 0.3 K/mm3 (0.0-0.4); Eosinophils % 2.7 % (0.1-12.0); Hemoglobin 12.8 g/dL (12.2-16.2); Lymphocytes # 1.2 K/mm3 (0.7-4.5); Lymphocytes % 12.6 % (10-50); Mean Corpuscular HGB Conc 32.8 g/dL (31.8-35.4); Mean Corpuscular Hemoglobin 27.3 pg (27.0-31.2); Mean Corpuscular Volume 83.2 fl (81-99); Mean Platelet Volume 9.3 fl (7.4-10.4); Monocytes # 0.6 K/mm3 (0.1-1.0); Monocytes % 5.6 % (1.7-9.3); Neutrophils # 7.7 K/mm3 (1.8-7.8); Neutrophils % 78.1 % (37.0-80.0); Platelet Count 253 K/mm3 (142-424); Red Blood Count 4.69 M/mm3 (4.20-5.40); Red Cell Distribution Width 14.4 % (11.5-17.5); White Blood Count 9.8 K/mm3 (4.8-10.8)
[2024-06-13 15:47] LABS: VBG Base Excess 0.1 mmol/L (-2.4-2.3); VBG HCO3 25.6 mmol/L (23-30); VBG Oxygen Saturation 74.4 % (50-70); VBG PCO2 46.8 mmol/L (35-51); VBG PH 7.36 mmol/L (7.31-7.41); VBG PO2 41.1 mmol/L (28-40)
[2024-06-13 15:50] LABS: Lactate Venous 3.6 mmol/L (0.4-2.0)
[2024-06-13 15:51] LABS: Alanine Aminotransferase 30 U/L (12-78); Albumin Level 4.2 g/dl (3.5-5.0); Albumin/Globulin Ratio 1.2 (1.1-1.8); Alkaline Phosphatase 73 U/L (38-126); Anion Gap 11.1 mEq/L (5-15); Aspartate Amino Transferase 33 U/L (14-36); Blood Urea Nitrogen 11 mg/dl (7-17); Calcium 9.2 mg/dl (8.4-10.2); Carbon Dioxide 28 mmol/L (22.0-30.0); Chloride 105 mmol/L (98-107); Creatinine Clearance Estimated 95 mL/min (50-200); Estimated Glomerular Filt Rate 89 ml/min (>60); GFR (African American) 108 ML/MIN (>60); Globulin 3.4 g/dL (1.3-3.2); Glucose 191 mg/dl (74-100); Lipase 72 U/L (23-300); Magnesium 1.9 mg/dl (1.6-2.3); Potassium 4.1 mmoL/L (3.5-5.1); Sodium 140 mmol/L (136-145); Total Protein,Serum 7.6 g/dl (6.3-8.2)
[2024-06-13 16:03] LABS: NT Pro Brain Natriuretic Pep. 397 pg/mL (0-125); Troponin I 0.02 ng/ml (0.00-0.034)
--- NOTE | 2024-06-13 16:03 | PC.NURSE ---
PT TO CT SCAN.
[2024-06-13] MEDS: 0.9 % SODIUM CHLORIDE 50 ML VIAL IV (16:17)
[2024-06-13] MEDS: SODIUM CHLORIDE 0.9% 10ML SYR (RAD ONLY) 10 ML IV (16:17)
[2024-06-13] MEDS: IOPAMIDOL-370 (76%);100ML BOTTLE 70 ML IV (16:17)
[2024-06-13 16:21] VITALS: BP 187/85; PULSE 94; RESP 18; O2SAT 98
[2024-06-13 16:22] VITALS: BP 163/96; PULSE 82; O2SAT 97
[2024-06-13 16:30] VITALS: BP 166/100; PULSE 81; O2SAT 97
[2024-06-13 17:25] VITALS: BP 168/80; PULSE 85; RESP 18; O2SAT 99
[2024-06-13 18:26] VITALS: BP 142/75; PULSE 85; RESP 20; TEMP 36.7; O2SAT 96
[2024-06-13 19:50] LABS: Reflex Lactic Add Lactic Reflex
== END 2024-06-13 18:36 | disposition home or self-care (01) ==
PROVIDERS: Nurse Practitioner; Emergency Provider Emergency Medicine; PCP Family Medicine
DX: R22.32 Localized swelling, mass and lump, left upper limb (principal); R06.02 Shortness of breath; S80.822A Blister (nonthermal), left lower leg, initial encounter; I48.91 Unspecified atrial fibrillation; Z79.01 Long term (current) use of anticoagulants; E11.9 Type 2 diabetes mellitus without complications; Z86.79 Personal history of other diseases of the circulatory system
CPT/HCPCS: 93971; 71275; 80053; 82803; 83690; 83735; 83880; 84484; 85025; 85378; 93005; 99285; Q9967

== ENCOUNTER 2024-06-17 12:30 | Outpatient (CLI) | payer MEDICAID, SELFPAY | END 2024-06-17 23:59 | disposition home or self-care (01) | LOC: LAB.DROPOF 06-18 12:05 | PROVIDERS: PCP Family Medicine; Visit Provider Family Medicine | DX: L02.412 Cutaneous abscess of left axilla (principal) | CPT/HCPCS: 87070; 87077; 87186; 87205 ==

== ENCOUNTER 2024-11-03 15:58 | Observation (INO) | payer MEDICAID, SELFPAY ==
--- OUTSIDE RECORDS SUMMARY | 2022-10-10 05:00 | XMS_ITS | Encounter Summary ---
Author Organization [place] [address] Care Team Providers Care Digital Account Coordinator Name Role Phone Carlos Dean MD Primary Care Provider Encounter Details Date Type Department Care Team (Latest Contact Info) Description 10/10/2022 5:00 AM EDT Hospital Encounter [facility] Referral Lab 1 [place] [address] Encounter for general adult medical [...] 10/10/2022 6:27 AM EDT [facility] MPV 9.0 8.8 - 12.5 fL 10/10/2022 6:27 AM EDT [facility] Neut Percent 69.7 % 10/10/2022 6:27 AM EDT [facility] Comment:Neutrophils equals s egs plus bands Imm Gran% 2.6 % 10/10/2022 6:27 AM EDT [facility] Comment:Automated count of m etamyelocytes, myelocytes and promyelocytes. IG >1% represents a left shift and provides an early indication of an infection or inflammatory process. Lymph Percent 17.1 % 10/10/2022 6:27 AM EDT [facility] [place] Percent 6.6 % 10/10/2022 6:27 AM EDT [facility] Eos Percent 3.5 % 10/10/2022 6:27 AM EDT [facility] Baso Percent 0.5 % 10/10/2022 6:27 AM EDT [facility] Neut # 8.2(H) 1.6 - 6.1 x10(3)/[facility] 10/10/2022 6:27 AM EDT [facility] Comment:Neutrophils equals s egs plus bands IMMGRAN# 0.3(H) 0.0 - 0.1 x10(3)/[facility] 10/10/2022 6:27 AM EDT [facility] Comment:Automated count of m etamyelocytes, myelocytes and promyelocytes. An absolute IG <0.1 is reported as 0.0. Lymph # 2.0 1.2 - 3.9 x10(3)/[facility] 10/10/2022 6:27 AM EDT [facility] [place] # 0.8 0.3 - 0.9 x10(3)/[facility] 10/10/2022 6:27 AM EDT [facility] Eos# 0.4 0.0 - 0.5 x10(3)/[facility] 10/10/2022 6:27 AM EDT [facility] Baso # 0.1 0.0 - 0.1 x10(3)/[facility] 10/10/2022 6:27 AM EDT [facility] Blood VENOUS BLOOD / Unknown Venipuncture / Unknown 10/10/2022 5:38 AM EDT 10/10/2022 6:08 AM EDT us Unknown Provider HEMATOLOGY ORDERABLES Final Res ult [facility] [employer] [address] [facility] , [place] [address] documented in this encounter Visit Diagnoses Diagnosis Encounter for general adult medical examination without abnormal findings Routine general medical examination at a health care facility documented in this encounter Care Teams Digital Account Coordinator Relationship Specialty Start Date End Date Carlos Dean MD PCP - General 11/08/09 documented as of this encounter
--- OUTSIDE RECORDS SUMMARY | 2022-10-10 05:00 | XMS_ITS | Encounter Summary ---
Author Organization [place] [address] Care Team Providers Care Senior Sustainability Consultant Name Role Phone Carlos Dean MD Primary Care Provider [phone] Encounter Details Date Type Department Care Team (Latest Contact Info) Description 10/10/2022 5:00 AM EDT Hospital Encounter [facility] Referral Lab 1 [place] [address] Encounter for general adult medical [...] - 40.0 mg/dL 10/10/2022 8:46 AM EDT [employer] [facility] Blood VENOUS BLOOD / Unknown Venipuncture / Unknown 10/10/2022 5:38 AM EDT 10/10/2022 6:08 AM EDT us Unknown Provider CHEMISTRY ORDERABLES Final Resu lt [employer] [address] [place] [address] , [place] [address] documented in this encounter Visit Diagnoses Diagnosis Encounter for general adult medical examination without abnormal findings Routine general medical examination at a health care facility documented in this encounter Care Teams Senior Sustainability Consultant Relationship Specialty Start Date End Date Carlos Dean MD PCP - General 11/08/09 documented as of this encounter
--- OUTSIDE RECORDS SUMMARY | 2022-10-11 05:00 | XMS_ITS | Encounter Summary ---
Author Organization [place] [address] Care Team Providers Care Business Case Analyst Name Role Phone Carlos Dean MD Primary Care Provider [phone] Encounter Details Date Type Department Care Team (Latest Contact Info) Description 10/11/2022 5:00 AM EDT Hospital Encounter [facility] Referral Lab 1 [place] [address] Encounter for general adult medical [...] documented in this encounter Plan of Treatment Scheduled Orders Name Type Priority Associated Diagnoses Orde r Schedule BASIC METABOLIC PANEL Lab Routine Encounter for general adult medical examination without abnormal findings ONCE for 1 Occurrences starting 10/11/2022 until 11/15/2022 documented as of this encounter Results * (ABNORMAL) BASIC METABOLIC PANEL (10/11/2022 5:28 AM EDT) Pathologist [facility] Sodium 141 136 - 145 mmol/L 10/11/2022 [...] mL/min/1.7 3 m2 10/11/2022 8:18 AM EDT [facility] Comment:Estimated GFR was ca lculated using the CKD-EPIcr (2020) equation refit without race. The equation is recommended by the National Kidney Foundation - [place] Society of Nephrology Task Force. Blood VENOUS BLOOD / Unknown Venipuncture / Unknown 10/11/2022 5:28 AM EDT 10/11/2022 6:57 AM EDT us Unknown Provider CHEMISTRY ORDERABLES Final Resu lt [employer] 1 [facility] , [place] [address] [facility] [address] [place], [place] [id number] documented in this encounter Visit Diagnoses Diagnosis Encounter for general adult medical examination without abnormal findings Routine general medical examination at a health care facility documented in this encounter Care Teams Business Case Analyst Relationship Specialty Start Date End Date Carlos Dean MD PCP - General 11/08/09 documented as of this encounter
--- OUTSIDE RECORDS SUMMARY | 2022-10-12 05:00 | XMS_ITS | Encounter Summary ---
Author Organization [place] [address] Care Team Providers Care Case Making Machine Operator Name Role Phone Carlos Dean MD Primary Care Provider [phone] Encounter Details Date Type Department Care Team (Latest Contact Info) Description 10/12/2022 5:00 AM EDT Hospital Encounter [facility] Referral Lab 1 [place] [address] Encounter for general adult medical [...] METABOLIC PANEL (10/12/2022 5:46 AM EDT) Pathologist [facility] Sodium 139 136 - 145 mmol/L 10/12/2022 [...] 10/12/2022 8:02 AM EDT [facility] Albumin 3.3(L) 3.5 - 5.2 gm/dL 10/12/2022 8:02 AM EDT [facility] Total Protein 6.7 6.4 - 8.3 gm/dL 10/12/2022 8:02 AM EDT [facility] Bili Total 0.4 0.2 - 1.3 mg/dL 10/12/2022 8:02 AM EDT [facility] ALT 15 <=41 U/L 10/12/2022 8:02 AM EDT [facility] AST 22 <=40 U/L 10/12/2022 8:02 AM EDT [facility] Alk Phos 69 36 - 123 U/L 10/12/2022 8:02 AM EDT [facility] eGFR (CKD-EPIcr 2020) 41(L) >=60 mL/min/1.7 3 m2 10/12/2022 8:02 AM EDT [facility] Comment:Estimated GFR was ca lculated using the CKD-EPIcr (2020) equation refit without race. The equation is recommended by the National Kidney Foundation - [place] Society of Nephrology Task Force. Blood VENOUS BLOOD / Unknown Venipuncture / Unknown 10/12/2022 5:46 AM EDT 10/12/2022 6:59 AM EDT us Unknown Provider CHEMISTRY ORDERABLES Final Resu lt [facility] [address] [facility] , [place] [address] [facility] [address] [place] [address] documented in this encounter Visit Diagnoses Diagnosis Encounter for general adult medical examination without abnormal findings Routine general medical examination at a health care facility documented in this encounter Care Teams Case Making Machine Operator Relationship Specialty Start Date End Date Carlos Dean MD PCP - General 11/08/09 documented as of this encounter
--- OUTSIDE RECORDS SUMMARY | 2022-10-12 09:37 | XMS_ITS | Encounter Summary ---
Author Organization [place] [address] Care Team Providers Care Floor Polisher Name Role Phone Carlos Dean MD Primary Care Provider [phone] Encounter Details Date Type Department Care Team (Latest Contact Info) Description 10/12/2022 9:37 AM EDT Hospital Encounter [facility] Referral Lab 1 [place] [address] Encounter for general adult medical [...] facility documented in this encounter Care Teams Floor Polisher Relationship Specialty Start Date End Date Carlos Dean MD PCP - General 11/08/09 documented as of this encounter
--- OUTSIDE RECORDS SUMMARY | 2022-10-12 09:38 | XMS_ITS | Encounter Summary ---
Author Organization [place] [address] Care Team Providers Care Transportation Design Engineer Name Role Phone Carlos Dean MD Primary Care Provider Encounter Details Date Type Department Care Team (Latest Contact Info) Description 10/12/2022 9:38 AM EDT Hospital Encounter [facility] Referral Lab 1 [place] [address] Encounter for general adult medical [...] facility documented in this encounter Care Teams Transportation Design Engineer Relationship Specialty Start Date End Date Carlos Dean MD PCP - General 11/08/09 documented as of this encounter
--- OUTSIDE RECORDS SUMMARY | 2022-10-15 05:00 | XMS_ITS | Encounter Summary ---
Author Organization [place] [address] Care Team Providers Care Digital Tech Name Role Phone Carlos Dean MD Primary Care Provider [phone] Encounter Details Date Type Department Care Team (Latest Contact Info) Description 10/15/2022 5:00 AM EDT Hospital Encounter [facility] Referral Lab 1 [place] [address] Encounter for general adult medical [...] BASIC METABOLIC PANEL (10/15/2022 9:28 AM EDT) [facility] Sodium 140 136 - 145 mmol/L 10/15/2022 [...] mL/min/1.7 3 m2 10/15/2022 10:14 AM EDT [facility] Comment:Estimated GFR was ca lculated using the CKD-EPIcr (2020) equation refit without race. The equation is recommended by the National Kidney Foundation - [place] Society of Nephrology Task Force. Blood VENOUS BLOOD / Unknown Venipuncture / Unknown 10/15/2022 9:28 AM EDT 10/15/2022 9:28 AM EDT us Unknown Provider CHEMISTRY ORDERABLES Final Resu lt [facility] [employer] [facility] [address] [facility] , [address] [place] [id number] [facility] [address] [place], [place] [phone] documented in this encounter Visit Diagnoses Diagnosis Encounter for general adult medical examination without abnormal findings Routine general medical examination at a health care facility documented in this encounter Care Teams Digital Tech Relationship Specialty Start Date End Date Carlos Dean MD PCP - General 11/08/09 documented as of this encounter
--- OUTSIDE RECORDS SUMMARY | 2022-10-15 05:00 | XMS_ITS | Encounter Summary ---
Author Organization [place] [address] Care Team Providers Care Instrument Sterilizer Name Role Phone Carlos Dean MD Primary Care Provider [phone] Encounter Details Date Type Department Care Team (Latest Contact Info) Description 10/15/2022 5:00 AM EDT Hospital Encounter [facility] Referral Lab 1 [place] [address] Encounter for general adult medical [...] 10/15/2022 9:55 AM EDT [facility] Platelet 409(H) 155 - 369 x10(3)/mcL 10/15/2022 9:55 AM EDT [facility] MPV 9.7 8.8 - 12.5 fL 10/15/2022 9:55 AM EDT [facility] Neut Percent 64.2 % 10/15/2022 9:55 AM EDT [facility] Comment:Neutrophils equals s egs plus bands Imm Gran% 0.8 % 10/15/2022 9:55 AM EDT [facility] Comment:Automated count of m etamyelocytes, myelocytes and promyelocytes. Lymph Percent 23.2 % 10/15/2022 9:55 AM EDT [facility] Gem Percent 5.9 % 10/15/2022 9:55 AM EDT [facility] Eos Percent 5.4 % 10/15/2022 9:55 AM EDT [facility] Baso Percent 0.5 % 10/15/2022 9:55 AM EDT [facility] Neut # 6.3(H) 1.6 - 6.1 x10(3)/[facility] 10/15/2022 9:55 AM EDT [facility] Comment:Neutrophils equals s egs plus bands IMMGRAN# 0.1 0.0 - 0.1 x10(3)/[facility] 10/15/2022 9:55 AM EDT [facility] Comment:Automated count of m etamyelocytes, myelocytes and promyelocytes. An absolute IG <0.1 is reported as 0.0. Lymph # 2.3 1.2 - 3.9 x10(3)/mcL 10/15/2022 9:55 AM EDT [facility] Gem # 0.6 0.3 - 0.9 x10(3)/[facility] 10/15/2022 9:55 AM EDT [facility] Eos# 0.5 0.0 - 0.5 x10(3)/[facility] 10/15/2022 9:55 AM EDT [facility] Baso # 0.1 0.0 - 0.1 x10(3)/[facility] 10/15/2022 9:55 AM EDT [facility] Blood VENOUS BLOOD / Unknown Venipuncture / Unknown 10/15/2022 9:28 AM EDT 10/15/2022 9:28 AM EDT us Unknown Provider HEMATOLOGY ORDERABLES Final Res ult [facility] [employer] 1 [facility] , [place] [address] documented in this encounter Visit Diagnoses Diagnosis Encounter for general adult medical examination without abnormal findings Routine general medical examination at a health care facility documented in this encounter Care Teams Instrument Sterilizer Relationship Specialty Start Date End Date Carlos Dean MD PCP - General 11/08/09 documented as of this encounter
--- OUTSIDE RECORDS SUMMARY | 2022-10-17 05:00 | XMS_ITS | Encounter Summary ---
Author Organization [place] [address] Care Team Providers Care Oven Builder Name Role Phone Carlos Dean MD Primary Care Provider [phone] Encounter Details Date Type Department Care Team (Latest Contact Info) Description 10/17/2022 5:00 AM EDT Hospital Encounter [facility] Referral Lab 1 [place] [address] Encounter for general adult medical [...] facility documented in this encounter Care Teams Oven Builder Relationship Specialty Start Date End Date Carlos Dean MD PCP - General 11/08/09 documented as of this encounter
--- OUTSIDE RECORDS SUMMARY | 2022-10-17 05:00 | XMS_ITS | Encounter Summary ---
Author Organization [place] [address] Care Team Providers Care Nuclear Criticality Safety Engineer Name Role Phone Carlos Dean MD Primary Care Provider [phone] Encounter Details Date Type Department Care Team (Latest Contact Info) Description 10/17/2022 5:00 AM EDT Hospital Encounter [facility] Referral Lab 1 [place] [address] Encounter for general adult medical [...] documented in this encounter Care Teams Nuclear Criticality Safety Engineer Relationship Specialty Start Date End Date Carlos Dean MD PCP - General 11/08/09 documented as of this encounter
--- OUTSIDE RECORDS SUMMARY | 2022-10-18 05:00 | XMS_ITS | Encounter Summary ---
Author Organization [employer] [place] [address] Care Team Providers Care Flexographic Printing Press Operator Name Role Phone Carlos Dean MD Primary Care Provider [phone] Encounter Details Date Type Department Care Team (Latest Contact Info) Description 10/18/2022 5:00 AM EDT Hospital Encounter [facility] Referral Lab 1 [place] [address] Encounter for general adult medical [...] BASIC METABOLIC PANEL (10/18/2022 4:45 AM EDT) Pathologist [facility] Sodium 142 136 - 145 mmol/L 10/18/2022 [...] mL/min/1.7 3 m2 10/18/2022 6:53 AM EDT [facility] [email or web address] [facility] Comment:Estimated GFR was ca lculated using the CKD-EPIcr (2020) equation refit without race. The equation is recommended by the National Kidney Foundation - [place] Society of Nephrology Task Force. Blood VENOUS BLOOD / Unknown Venipuncture / Unknown 10/18/2022 4:45 AM EDT 10/18/2022 6:15 AM EDT us Unknown Provider CHEMISTRY ORDERABLES Final Resu lt [facility] 1 [facility] , [place] [address] [facility] [address] [place], [place] [phone] documented in this encounter Visit Diagnoses Diagnosis Encounter for general adult medical examination without abnormal findings Routine general medical examination at a health care facility documented in this encounter Care Teams Flexographic Printing Press Operator Relationship Specialty Start Date End Date Carlos Dean MD PCP - General 11/08/09 documented as of this encounter
--- OUTSIDE RECORDS SUMMARY | 2022-10-22 13:54 | XMS_ITS | Encounter Summary ---
Author Organization [place] [address] Care Team Providers Care Print Line Tailer Name Role Phone Carlos Dean MD Primary Care Provider [phone] Encounter Details Date Type Department Care Team (Latest Contact Info) Description 10/22/2022 1:54 PM EDT Hospital Encounter [facility] Referral Lab 1 [place] [address] Encounter for general adult [...] facility documented in this encounter Care Teams Print Line Tailer Relationship Specialty Start Date End Date Carlos Dean MD PCP - General 11/08/09 documented as of this encounter
--- OUTSIDE RECORDS SUMMARY | 2022-10-22 13:54 | XMS_ITS | Encounter Summary ---
Author Organization [place] [address] Care Team Providers Care Impregnation Operator Name Role Phone Carlos Dean MD Primary Care Provider [phone] Encounter Details Date Type Department Care Team (Latest Contact Info) Description 10/22/2022 1:54 PM EDT Hospital Encounter [facility] Referral Lab 1 [place] [address] Encounter for general adult medical [...] facility documented in this encounter Care Teams Impregnation Operator Relationship Specialty Start Date End Date Carlos Dean MD PCP - General 11/08/09 documented as of this encounter
--- OUTSIDE RECORDS SUMMARY | 2023-12-04 05:00 | XMS_ITS | Encounter Summary ---
Author Organization [place] [address] Care Team Providers Care Fondant Puff Maker Name Role Phone Carlos Dean MD Primary Care Provider [phone] Encounter Details Date Type Department Care Team (Latest Contact Info) Description 12/04/2023 5:00 AM EDT Hospital Encounter [facility] Referral Lab 1 [place] [address] Tang Catherine MD [address] [place] [address] [place] [phone] Encounter for general adult medical examination [...] * (ABNORMAL) PREALBUMIN (12/04/2023 4:00 AM EDT) Pathologist [facility] Prealbumin 15.9(L) 20.0 - 40.0 mg/dL 12/04/2023 7:54 AM EDT [facility] Blood VENOUS BLOOD / Unknown Venipuncture / Unknown 12/04/2023 4:00 AM EDT 12/04/2023 6:56 AM EDT Tang Catherine MD CHEMISTRY ORDERABLES Final Resu lt [facility] 1 [facility] , [place] [address] documented in this encounter Visit Diagnoses Diagnosis Encounter for general adult medical examination without abnormal findings Routine general medical examination at a health care facility documented in this encounter Care Teams Fondant Puff Maker Relationship Specialty Start Date End Date Carlos Dean MD PCP - General 11/08/09 documented as of this encounter
--- OUTSIDE RECORDS SUMMARY | 2023-12-04 05:00 | XMS_ITS | Encounter Summary ---
Author Organization [place] [address] Care Team Providers Care Marketing [employer] Entertainment Name Role Phone Carlos Dean MD Primary Care Provider [phone] Encounter Details Date Type Department Care Team (Latest Contact Info) Description 12/04/2023 5:00 AM EDT Hospital Encounter [facility] Referral Lab 1 [place] [address] Tang Catherine MD [address] [place] [address] [place] [phone] Encounter for general adult medical examination [...] COMPREHENSIVE METABOLIC PANEL (12/04/2023 4:00 AM EDT) [facility] Sodium 140 136 - 145 mmol/L 12/04/2023 [...] 12/04/2023 8:10 AM EDT [facility] Albumin 3.6 3.5 - 5.2 gm/dL 12/04/2023 8:10 AM EDT [facility] Total Protein 5.9(L) 6.4 - 8.3 gm/dL 12/04/2023 8:10 AM EDT [facility] Bili Total 0.5 0.2 - 1.3 mg/dL 12/04/2023 8:10 AM EDT [facility] ALT 18 <=41 U/L 12/04/2023 8:10 AM EDT [facility] AST 17 <=40 U/L 12/04/2023 8:10 AM EDT [facility] Alk Phos 74 36 - 123 U/L 12/04/2023 8:10 AM EDT [facility] eGFR (CKD-EPIcr 2020) 74 >=60 mL/min/1.7 3 m2 12/04/2023 8:10 AM EDT [facility] Comment:Estimated GFR was ca lculated using the CKD-EPIcr (2020) equation refit without race. The equation is recommended by the National Kidney Foundation - [place] Society of Nephrology Task Force. Blood VENOUS BLOOD / Unknown Venipuncture / Unknown 12/04/2023 4:00 AM EDT 12/04/2023 6:56 AM EDT us Tang Catherine MD CHEMISTRY ORDERABLES Final Resu lt [facility] 1 [facility] , [place] [address] [facility] [address] [place] [address] documented in this encounter Visit Diagnoses Diagnosis Encounter for general adult medical examination without abnormal findings Routine general medical examination at a health care facility documented in this encounter Care Teams Marketing [employer] Relationship Specialty Start Date End Date Carlos Dean MD PCP - General 11/08/09 documented as of this encounter
[2024-11-03] VITALS (14 sets, daily range): BP systolic 148–216; BP diastolic 75–123; PULSE 73–137; RESP 16–24; TEMP 36.6–37; O2SAT 94–98; BMI 54.8
--- NOTE | 2024-11-03 16:00 | PC.NURSE ---
attempted to do pt med rec. pt stated she didnt know what she took and asked her to go home and grab her pill bottles
--- OUTSIDE RECORDS SUMMARY | 2024-11-03 16:08 | XMS_ITS | Clinical Summary ---
Author Organization [facility] Address [address] [place] [address] Care Team Providers Care Telephone Appointment Clerk Name Role Phone Carlos Dean MD Primary Care Provider [phone] Allergies No known active allergies Medications albuterol (PROVENTIL) 2.5 mg /3 mL (0.083 %) nebulization Take 2.5 mg by inhalation. Active amLODIPine (NORVASC) 10 mg tablet Take 10 mg by mouth. Active canagliflozin (INVOKANA) 300 mg Tablet Take 300 mg by mouth. Active dapagliflozin (FARXIGA) 10 mg Tablet Take 10 mg by mouth. Active dicyclomine (BENTYL) 20 mg tablet Take 20 mg by mouth. 4 Active FLUoxetine (PROZAC) 40 mg capsule Take 40 mg by mouth. Active furosemide (LASIX) 20 mg tablet Take 20 mg by mouth. Active hydrALAZINE (APRESOLINE) 50 mg tablet Take 50 mg by mouth. Active Insulin Lispro (HUMALOG) 100 unit/mL Cartridge by Subcutaneous route. Active lamoTRIgine (LAMICTAL) 25 mg Tablet Take 25 mg by mouth. Active lisinopril (PRINIVIL, ZESTRIL) 40 mg tablet Take 40 mg by mouth. Active metoprolol (LOPRESSOR) 50 mg tablet Take 50 mg by mouth. Active Mometasone-Formo terol (DULERA) 200-5 mcg/actuation HFA Aerosol Inhaler Take 2 Puffs by inhalation. Active multivitamin (THERAGRAN) Tablet Take by mouth. Activ e omeprazole (PRILOSEC) 20 mg capsule Take 20 mg by mouth. Active sitaGLIPtin (JANUVIA) 100 mg Tablet Take 100 mg by mouth. Active spironolactone (ALDACTONE) 25 mg tablet Take 50 mg by mouth. Active tolterodine (DETROL) 1 mg Tablet Take 1 mg by mouth. 7 Active topiramate (TOPAMAX) 25 mg Tablet Take 50 mg by mouth. 6 Active traZODone (DESYREL) 100 mg tablet Take 100 mg by mouth. Active potassium chloride (KDUR) 10 mEq tablet Take 10 mEq by mouth. Active hyoscyamine (LEVSIN/SL) 0.[address] 0.125 mg under tongue every 4 hours as needed for Cramping. Active fluticasone-helga nterol (BREO ELLIPTA) 200-25 mcg/dose Disk with Device disc nhaler Take by inhalation daily. Active pantoprazole (PROTONIX) 40 mg Tablet, Delayed Release (E.C.) Take 40 mg by mouth daily. Active hydroCHLOROthiaz erika (HYDRODIURIL) 25 mg tablet Take 25 mg by mouth daily. Active ergocalciferol, vitamin D2, (VITAMIN D2 PO) Take by mouth. Active carvedilol (COREG) 25 mg Tablet Take 25 mg by mouth 2 times daily (with meals). Active folic acid/multivit,ir on,chief bank examiner (CENTRUM PO) Take by mouth. Ac tive Active Problems Problem Noted Date Diagnosed Date Morbid obesity with BMI of 50.0-59.9, adult 03/25 Chronic RLQ pain 04/09/2018 Low back pain at multiple sites 04/09/2018 Migraine 04/09/2018 Type 2 diabetes mellitus 04/09/2018 Recurrent episodes of unresponsiveness 9 Recurrent ventral hernia 04/09/2018 Social History Tobacco Use Types Packs/Day Years Used Date Smoking Tobacco: Every Day Cigarettes Started: 1994 Smokeless Tobacco: Never Alcohol Use Standard Drinks/Week Comments Yes 0 (1 standard drink = 0.6 oz pur e alcohol) Comments No Sex and Gender Information Value Date Recorded Sex Assigned at Not on file Legal Sex Female 5:38 PM EST Gender Identity Not on file Sexual Orientation Not on file Last Filed Vital Signs Vital Sign Reading Time Taken Comments Blood Pressure - - Pulse 93 04/09/2018 10:08 AM EST Temperature - - Respiratory Rate - - Oxygen Saturation 97% 04/09/2018 10:08 AM EST Inhaled Oxygen Concentration - - Weight 151 kg (333 lb) 04/09/2018 10:08 AM EST Height 167.6 cm (5' 6 ) 04/09/2018 10:08 AM EST Body Mass Index 53.75 04/09/2018 10:08 AM EST Plan of Treatment Health Maintenance Due Date Last Done Comments Cologuard 1974 Colonoscopy 1974 Colorectal Cancer Screening 1974 FIT 1974 Lipid Screening 1992 Tetanus Vaccination (Every 10 Years) 1992 Cervical Cancer Screening 06/27/1995 COVID-19 Vaccine ( - 2023- season) 2023 Depression Screening 03/25/2024 Breast Cancer Screening 2024 Pneumococcal Vaccine: 50+ Years (1 of 1 - PCV) 025 Zoster-RZV(Shingrix) (1 of 2) 2024 Influenza Vaccination (#1) 2024 Insurance Care Teams Telephone Appointment Clerk Relationship Specialty [place] [address] [place] [address] PCP - General Family Medicine 04/01/18
--- OUTSIDE RECORDS SUMMARY | 2024-11-03 16:08 | XMS_ITS | Clinical Summary ---
Author Organization [id number] Address [address] [facility], [address] [place] [address] Care Team Providers Care Store Worker Name Role Phone Carlos Dean MD Primary Care Provider Allergies No known active allergies Medications lisinopril (PRINIVIL;ZESTRI L) 40 mg tablet Take 40 mg by mouth 2 times daily. Active FLUoxetine (PROZAC) 20 mg Oral Capsule Take 40 mg by mouth daily. Active amLODIPine (NORVASC) 10 mg Oral Tablet Take 10 mg by mouth daily. Active multivitamin (THERAGRAN) Oral Tablet Take 1 Tab by mouth daily. Active traZODone (DESYREL) 100 mg Oral Tablet Take 100 mg by mouth nightly. Active albuterol (PROVENTIL) 2.5 mg /3 mL (0.083 %) Inhl Solution for Nebulization Take 2.5 mg by nebulization every 6 hours as needed for Wheezing. Active potassium chloride (K-DUR) 10 mEq Oral Tablet Sustained Release Take 10 mEq by mouth daily. Active hydrALAZINE (APRESOLINE) 50 mg Oral Tablet Take 50 mg by mouth 4 times daily. Active hydroCHLOROthiaz erika (HYDRODIURIL) 25 mg Oral Tablet Take by mouth. Active insulin lispro (HUMALOG KWIKPEN INSULIN) 100 unit/mL SubQ Insulin Pen Subcutaneous (Inject under the skin) 0-12 Units 3 times daily (with meals). 1 Each 9 Active Insulin glargine (LANTUS) 100 unit/mL (3 mL) SubQ Insulin Pen Subcutaneous (Inject under the skin) 100 Units every evening. Active oxyCODONE (ROXICODONE) 5 mg Oral Tablet 2 Active dilTIAZem 180 mg Oral Capsule, Sust. Release 24 hr 2 Active Active Problems Problem Noted Date Diagnosed Date Chest pain at rest 10/21/2018 Sleep apnea, obstructive 10/21/2018 Bilateral lower extremity edema 10/21/2018 Morbid obesity with BMI of 50.0-59.9, adult 10/2017 Low back pain at multiple sites 04/02/2017 Chronic RLQ pain 04/02/2017 Migraine headache 07/12/2015 Abnormal EEG 07/12/2015 Recurrent episodes of unresponsiveness 6 Essential hypertension 07/06/2015 Diabetes mellitus 07/06/2015 Tobacco abuse 07/06/2015 Tenosynovitis, de Quervain 12/30/2012 Tenosynovitis, de Quervain 12/09/2012 Type 2 diabetes mellitus without complication Chest pain, precordial Resolved Problems Problem Noted Date Diagnosed Date Resolved Date Recurrent ventral hernia 03/29/2015 Immunizations Immunization Administration Dates Next Due Pneumococcal Polysaccharide 23 Valent (Deferred: Patient Refused - PER PATIENT) Surgical History Surgery Date Site/Laterality Comments CHOLECYSTECTOMY HYSTERECTOMY SECTION x2 APPENDECTOMY OVARY REMOVAL VENTRAL HERNIA REPAIR 04/04/2015 Abdomen/N/A DAVINCI ROBOTIC ASSISTED RECURRENT VENTRAL HERNIA REPAIR WITH MESH; Surgeon: Africa eGe MD; Location: [facility] MAIN OR; Service: General Medical devices from this surgery are in the Medical Devices section. ERCP Medical History Medical History Date Comments Unspecified sleep apnea c pap do esnt always use Leg swelling renate occ Hypertension Depression Complication of anesthesia hard to arouse x 1 or Diverticulosis Cardiomegaly COPD (chronic obstructive pulmonary disease) (HC C) DELEON (dyspnea on exertion) Heartburn Neuromuscular disorder (HCC) coughlin ds and feet Syncope and collapse Urinary incontinence Diabetes mellitus (HCC) Type II CHF (congestive heart failure) (HCC) Family History Medical History Relation Name Comments Heart Disease Father High Blood Pressure Father High Cholesterol Father Diabetes Mother High Blood Pressure Mother High Cholesterol Mother Anesth Problems Neg Hx Relation Name Status Comments Father Alive Mother Alive Social History Tobacco Use Types Packs/Day Years Used Date Smoking Tobacco: Former Cigarettes 0.3 23.1 0 07/05/1994 - 08/23/2017 Smokeless Tobacco: Never Tobacco Cessation:Ready to Q uit: No Alcohol Use Standard Drinks/Week Comments Yes 0 (1 standard drink = 0.6 oz pur e alcohol) occ Comments No Sex and Gender Information Value Date Recorded Sex Assigned at Not on file Legal Sex Female 6:55 PM EDT Gender Identity Not on file Sexual Orientation Not on file Obstetrics History Last Filed Vital Signs Vital Sign Reading Time Taken Comments Blood Pressure 120/63 10/22/2018 10:32 AM EDT Pulse 99 10/22/2018 10:32 AM EDT Temperature 36.6 C (97.9 F) 10/22/2018 10:32 AM EDT Respiratory Rate 18 10/22/2018 10:32 AM EDT Oxygen Saturation 96% 10/22/2018 10:32 AM EDT Inhaled Oxygen Concentration - - Weight 149.7 kg (330 lb) 12/29/2021 10:16 AM EDT Height 167.6 cm (5' 6 ) 12/29/2021 10:16 AM EDT Body Mass Index 53.26 12/29/2021 10:16 AM EDT Plan of Treatment Health Maintenance Due Date Last Done Comments Annual Wellness Exam 1977 Diabetic Eye Exam 1992 Kidney Health: uACR 1992 DTaP/TDaP/Td (1 - Tdap) 1993 Hepatitis B Vaccine (1 of 3 - 19+ 3-dose series) 1993 Pneumococcal Vaccine 50+ (1 of 2 - PCV) 1993 Cervical Cancer Screening 06/27/1995 Pap Smear 06/27/1995 HPV/Pap Cotest 2004 Breast Cancer Screening 2014 Cologuard 06/27/2019 Colon Cancer Screening 06/27/2019 Colonoscopy 06/27/2019 FIT 06/27/2019 Sigmoidoscopy 06/27/2019 Virtual Colonography 06/27/2019 Lipids 10/22/2019 10/21/2018 Hemoglobin A1c 04/13/2023 10/11/2022, 10/21/2018 COVID-19 Vaccine ( - season) 2023 08/17/2020, 07/20/2020 Zoster (1 of 2) 2024 Influenza Vaccine (#1) 2024 Kidney Health: eGFR 12/03/2024 12/04/2023, 10/24/2022, 10/22/2022, Additional history exists Meningococcal B Vaccine Aged Out No l onger eligible based on patient's age to complete this topic Medical Devices Implanted Type Area Financial Advisor Trainee Device Identifier Shelf Expiration Date Model / Serial / Lot Matrix Tissue Strattice 6cm X 10cm [facility] - [id number] Implanted:Qty: 1 on 12/09/2009 at [facility] Abdomen LIFECELL 09/22/2010 [id number] / / [id number] Mesh Marlex 6 X 6 #[id number] - [id number] Implanted:Qty: 1 on 04/04/2015 by Africa Gee MD at [facility] N/A: Abdomen CR BARD:DAVOL 12/22/2018 [id number] / / [id number] Procedures Procedure Name Priority Date/Time Associated Diagnosis Comments COMPREHENSIVE METABOLIC PANEL Routine 12/04/2023 4:00 AM EDT Encounter for general adult medical examination without abnormal findings HEMOGLOBIN A1C Routine 10/11/2022 5:28 AM EDT Encounter for general adult medical examination without abnormal findings LIPID SCREEN Routine 10/21/2018 5:57 AM EDT from Last 3 Months or Most Recently Relevant to Health Maintenance Results * (ABNORMAL) COMPREHENSIVE METABOLIC PANEL (12/04/2023 [...] 12/04/2023 8:10 AM EDT [facility] Calcium 8.5(L) 8.6 - 10.4 mg/dL 12/04/2023 8:10 AM EDT [facility] Glucose Lvl 251(H) 70 - 99 mg/dL 12/04/2023 8:10 AM EDT [facility] BUN 15 6 - 20 mg/dL 12/04/2023 8:10 AM EDT [facility] Creatinine 0.94 0.51 - 1.30 mg/dL 12/04/2023 8:10 AM EDT [facility] Albumin 3.6 3.5 - 5.2 gm/dL 12/04/2023 8:10 AM EDT [facility] Total Protein 5.9(L) 6.4 - 8.3 gm/dL 12/04/2023 8:10 AM EDT [facility] Bili Total 0.5 0.2 - 1.3 mg/dL 12/04/2023 8:10 AM EDT [facility] ALT 18 <=41 U/L 12/04/2023 8:10 AM EDT [facility] AST 17 <=40 U/L 12/04/2023 8:10 AM EDT [facility] Alk Phos 74 36 - 123 U/L 12/04/2023 8:10 AM EDT [facility] eGFR (CKD-EPIcr 2020) 74 >=60 mL/min/1.7 3 m2 12/04/2023 8:10 AM EDT [facility] Comment:Estimated GFR was ca lculated using the CKD-EPIcr (2020) equation refit without race. The equation is recommended by the National Kidney Foundation - [place] [employer] of Nephrology Task Force. Blood VENOUS BLOOD / Unknown Venipuncture / Unknown 12/04/2023 4:00 AM EDT 12/04/2023 6:56 AM EDT us Tang Catherine MD CHEMISTRY ORDERABLES Final Resu lt [facility] [address] [facility] , [place] [address] [facility] [address] [phone] * (ABNORMAL) HEMOGLOBIN A1C (10/11/2022 5:28 AM EDT) Pathologist [facility] Hgb A1C 9.5(H) 4.2 - 5.6 % 10/11/2022 8:36 AM EDT [facility] [employer] [facility] Est. Avg Glucose 226 mg/dL 10/11/2022 8:36 AM EDT [facility] [employer] Blood VENOUS BLOOD / Unknown Venipuncture / Unknown 10/11/2022 5:28 AM EDT 10/11/2022 7:05 AM EDT Narrative [facility] [employer] - 10/11/2022 8:36 AM EDT REFERENCE RANGE: Normal: 4.0-5.6% Pre-diabetes: 5.7-6.4% Provisional diagnosis of diabetes: >6.4% Hgb F>10% and anything which shortens red cell survival, such as hemolytic anemia, or unstable hemoglobin variants such as HbSS, HbSC, or HbCC, will lower the HbA1c value associated with a given level of glycemic control. [facility] CHEMISTRY ORDERABLES Pamela hector Result [facility] [employer], [facility] [address] [facility] , [place] [address] * (ABNORMAL) LIPID SCREEN (10/21/2018 5:57 AM EDT) Pathologist [facility] Cholesterol 132 <=200 mg/dL 10/21/2018 9:01 AM EDT [facility] [employer] [employer] Comment: < 200 Desirable 200 - 239 Borderline High >= 240 High Triglyceride 158(H) <=150 mg/dL 10/21/2018 9:01 AM EDT [facility] [employer] Comment: < 150 Normal 150 - 199 Borderline High 200 - 499 High >= 500 Very High HDL 40 >=40 mg/dL 10/21/2018 9:01 AM EDT [facility] [employer] Comment: > 60 Optimal 40 - 60 Acceptable < 40 Low LDL Calculated 60 <=100 mg/dL 10/21/2018 9:01 AM EDT [employer] [employer] Comment: < 100 Optimal 100 - 129 Near or above optimal 130 - 159 Borderline High 160 - 189 High >= 190 Very High Non-HDL-C Calculated 92 <=129 mg/dL 10/21/2018 9:01 AM EDT [facility] Comment: <130 Desirable 130-159 Above Desirable 160-189 Borderline High 190-219 High >= 220 Very High Fasting Specimen? Yes None 019 9:01 AM EDT [facility] Blood VENOUS BLOOD / Unknown Venipuncture / Unknown 10/21/2018 5:57 AM EDT 10/21/2018 6:39 AM EDT [facility] CHEMISTRY ORDERABLES Final Result [facility] [address] [facility] , [place] [address] from Last 3 Months or Most Recently Relevant to Health Maintenance Insurance [email or web address] [place] [employer] [place] Advance Directives For more information, please contact: [phone] * Full Code (Latest Code Status on File) Date Activated Date Inactivated Comments 10/20/2018 11:25 PM 10/22/2018 7:12 PM * Full Code Date Activated Date Inactivated Comments 04/04/2015 5:16 PM 04/05/2015 6:42 PM Care Teams Store Worker Relationship Specialty Start Date End Date Carlos Dean MD PCP - General 11/08/09
--- OUTSIDE RECORDS SUMMARY | 2024-11-03 16:08 | XMS_ITS | Clinical Summary ---
Author Organization Healthcare Address [address] [place] [address] Care Team Providers Care Employee Relations Assistant Name Role Phone Carlos Dean MD Primary Care Provider [phone] Allergies No known active allergies Medications hydrALAZINE (Apresoline) 50 MG tablet 3 (three) times a day. 7 Active insulin regular (HumuLIN R) 100 UNIT/ML injection 7 Active lamoTRIgine (LaMICtal) 100 MG tablet 1 (one) time each day. 7 Active amLODIPine-sandrita zepril (Lotrel) 10-40 MG capsule Take 1 capsule by mouth 1 (one) time each day. Active aspirin 81 MG EC tablet Take 81 mg by mouth 1 (one) time each day. Active ATORVASTATIN CALCIUM PO Take by mouth 1 (one) time each day. Active bisoprolol (Zebeta) 10 MG tablet Take by mouth 2 (two) times a day. Active dulaglutide (Trulicity) 3 MG/0.5ML inj. pen Inject 3 mg under the skin 1 (one) time per week. Active ergocalciferol (Vitamin D-2) 1.25 MG (13401 UT) capsule Take 50,000 Units by mouth 1 (one) time per week. Active fluticasone (Flonase) 50 MCG/ACT nasal spray Administer 1 spray into each nostril 1 (one) time each day. Shake gently. Before first use, prime pump. After use, clean tip and replace cap. Active HYDROCHLOROTHIA ZIDE PO Take by mouth 1 (one) time each day. Active insulin glargine (Lantus) 100 UNIT/ML injection Inject under the skin every night. Active insulin lispro (HumaLOG) 100 UNIT/ML pen cartridge Inject under the skin 3 (three) times a day with meals. Active LITHIUM CARBONATE ER PO Take by mouth 2 (two) times a day. Active sertraline (Zoloft) 100 MG tablet Take 100 mg by mouth 1 (one) time each day. Active spironolactone (Aldactone) 50 MG tablet Take 50 mg by mouth 1 (one) time each day. Active Active Problems Problem Noted Date Diagnosed Date Vitamin D deficiency 05/18/2021 CKD (chronic kidney disease) stage 1, GFR 90 ml/min or greater 05/18/2021 Microalbuminuria 05/08/2021 Morbid obesity 05/08/2021 Diabetes mellitus 12/10/2016 Hyperlipidemia 12/10/2016 Hypertension 12/10/2016 Immunizations Immunization Administration Dates Next Due Moderna COVID-19 Vaccine (Change Booth Attendant) 12+ years ,07/20/2020 Family History Medical History Relation Name Comments Conversions - Other Father hypoglyc emia Hypertension Father Prostate cancer Father Diabetes Mother Hypertension Mother Relation Name Status Comments Father Mother Social History Tobacco Use Types Packs/Day Years Used Date Smoking Tobacco: Former Smokeless Tobacco: Never Alcohol Use Standard Drinks/Week Comments Not Currently 0 (1 standard drink = 0.6 oz pure alcohol) Alcoholic Drinks/day: Occasional alcohol use Comments Unknown Sex and Gender Information Value Date Recorded Sex Assigned at Not on file Legal Sex Female 6:30 PM EDT Gender Identity Not on file Sexual Orientation Not on file Last Filed Vital Signs Vital Sign Reading Time Taken Comments Blood Pressure 127/91 10/01/2022 6:32 PM EDT Pulse 90 10/01/2022 6:32 PM EDT Temperature - - Respiratory Rate - - Oxygen Saturation - - Inhaled Oxygen Concentration - - Weight 136 kg (300 lb) 10/01/2022 6:32 PM EDT Height 170.2 cm (5' 7 ) 10/01/2022 6:32 PM EDT Body Mass Index 46.99 10/01/2022 6:32 PM EDT Plan of Treatment Health Maintenance Due Date Last Done Comments [facility]-Depression Screening 1974 [facility]-/Child/Adol SDOH Screenings 1974 [facility]- SDOH Screenings 1992 [facility]-Adult SDOH Screenings 1992 [facility]-DTaP,Tdap,and Td Vaccine s (1 - Tdap) 1993 [facility]-Hepatitis B Vaccines (1 of 3 - 19+ 3-dose series) 1993 [facility]-Pap Smear 06/27/1995 [facility]-Cervical Cancer Screening 2004 [facility]-HPV/Cotest 2004 CT Colonography 06/27/2019 Colonoscopy 06/27/2019 FIT-DNA 06/27/2019 FIT 06/27/2019 FOBT 06/27/2019 Sigmoidoscopy 06/27/2019 [facility]-Colorectal Cancer Screening 06/27/2019 [id number] Vaccine (3 - 2023- season) 2023 08/17/2020, 07/20/2020 [facility]-Pneumococcal Vaccine: 50 + Years (1 of 1 - PCV) 2024 [facility]-Zoster Vaccines (1 of 2) 2024 [facility]-Influenza Vaccine (#1) 2024 HPV Vaccines Aged Out No longer eligi ble based on patient's age to complete this topic [facility]-HIB Vaccines Aged Out No longer e ligible based on patient's age to complete this topic [facility]-Hepatitis A Vaccines Aged Out No longer eligible based on patient's age to complete this topic [facility]-IPV Vaccines Aged Out No longer e ligible based on patient's age to complete this topic [facility]-Rotavirus Vaccines Aged Out No lo nger eligible based on patient's age to complete this topic Insurance Care Teams Employee Relations Assistant Relationship Specialty Start Date End Date Carlos Dean MD PCP - General 08/05/20
--- NOTE | 2024-11-03 16:24 | XR_ITS ---
PROCEDURE INFORMATION: Exam: XR Chest Exam date and time: 11/03/2024 4:28 PM Age: 49 years old Clinical indication: Shortness of breath; Additional info: Short of breath TECHNIQUE: Imaging protocol: Radiologic exam of the chest. Views: 1 view. COMPARISON: 1. CT ANGIO CHEST PE PROTOCOL 06/13/2024 4:10 PM 2. AP portable chest x-ray dated July 23, 2022. 3. PA and lateral chest dated July 03, 2022. FINDINGS: Limitations: Large amount of overlying soft tissues. Lungs: There is fullness of the central pulmonary vasculature and diffuse interstitial prominence compatible with mild CHF. Superimposed patchy airspace consolidation is present within the right infrahilar region. Findings may correspond to atelectatic change or potential developing infiltrate. Pleural spaces: No large pleural effusion. No pneumothorax. Heart/Mediastinum: Mild cardiomegaly. The mediastinal contours are smooth. Bones/joints: Multilevel degenerative changes are present throughout the spine. IMPRESSION: Mild cardiomegaly. Central vascular fullness and interstitial prominence compatible with mild pulmonary edema. Superimposed patchy airspace consolidation within the right infrahilar region concerning for superimposed developing infiltrate. No large pleural effusion or pneumothorax.
--- NOTE | 2024-11-03 16:38 | ED_ITS ---
Discharge Plan Disposition Patient Disposition: Admitted Clinical Impressions Clinical Impression: Atrial fibrillation with rapid ventricular response, PAF (paroxysmal atrial fibrillation) Discharge ED Provider: Brandon Garvin HPI <Ximena Sotelo (ED), DIRECTOR OF CONTENT AND PROGRAMMING - Last Filed: 11/03/24 22:34> General Chief Complaint: Abdominal Pain Stated Complaint: sent by physician black finger Time Seen by Provider: 11/03/24 16:04 History of Present Illness HPI narrative: 49-year-old female presents to the ED today for several complaints. She was at the [employer] today and she was initially sent over for a black finger and elevated blood pressure. Initially her blood pressure was 168/128 in the office. Initially on arrival to the ED her blood pressure was 207/111. Patient is complaining of chest pain, shortness of breath and feeling unwell for couple weeks. She tells me that she has nausea with no vomiting or diarrhea. She has had occasional chills. She has a right lower extremity prosthetic. Patient has decreased appetite. She is a diabetic, has A-fib on Eliquis and has hypertension. Related Data Home Medications ?Medication ?Instructions ?Recorded ?Confirmed blood-glucose sensor (Dexcom G6 #1 ea 06/17/24 5 Sensor device) blood-glucose transmitter (Dexcom #1 ea 06/17/2411/03 G6 Transmitter device) insulin lispro 100 unit/mL SQ 07/27/24 11/03/24 subcutaneous solution Previous Rx's ?Medication ?Instructions ?Recorded gabapentin 300 mg capsule 300 mg PO TID #90 caps 02/12 fluticasone propionate 50 2 spray intranasal DAILY PRN nasal 03/09/24 mcg/actuation nasal congestion #16 grams spray,suspension apixaban 5 mg tablet 5 mg PO BID atrial fibrillat ion 30 06/01/24 days #60 tabs desvenlafaxine succinate 50 mg 50 mg PO DAILY #90 tabs 06/01/24 tablet,extended release 24 hr (Pristiq) diltiazem HCl 300 mg 300 mg PO DAILY #90 caps 01/16 capsule,extended release 24 hr hydralazine 50 mg tablet 50 mg PO TID #90 tabs losartan 100 mg tablet 100 mg PO DAILY #90 tabs 01/16 spironolactone 50 mg tablet 50 mg PO BID PRN Fluid #60 tabs 06/01/24 torsemide 20 mg tablet 40 mg (2 x 20 mg) PO DAILY P RN 06/01/24 diuretic #60 tabs trazodone 150 mg tablet 150 mg PO HS #90 tabs furosemide 20 mg tablet (Lasix) 20 mg PO DAILY #7 tabs 06/13/24 cariprazine 3 mg capsule (Vraylar) 3 mg PO DAILY #90 c aps 06/17/24 mupirocin 2 % topical ointment 1 applic topical TID #2 2 grams 06/17/24 hydroxyzine HCl 25 mg tablet 50 mg (2 x 25 mg) PO Q6HP PRN 07/27/24 anxiety #120 tabs hydrocodone 5 mg-acetaminophen 325 1 tab PO TIDP PRN p ain #45 tabs 10/15/24 mg tablet hydralazine 100 mg tablet 100 mg PO TID #90 tabs 10/26 Allergies Allergy/AdvReac Type Severity Reaction Status Date / Time No Known Allergies Allergy Verified 11/03/24 13:58 PFS <Ximena Sotelo (ED), DIRECTOR OF CONTENT AND PROGRAMMING - Last Filed: 11/03/24 22:34> [facility] Disclaimer: The information contained in this section may have been updated after the patient was seen, as this information can be updated by other users. Medical History Acute pancreatitis Family history of lymphoma Below knee amputation Urinary tract infection Seizure disorder Fibromyalgia Cellulitis Pancreatitis History of gastroesophageal reflux (GERD) High blood pressure High cholesterol Afib Mood disorder CHF (congestive heart failure) Diabetes Tachycardia Surgical History History of cholecystectomy History of appendectomy History of section History of hysterectomy History of colonoscopy Family History Other Family history of cancer Family history of myocardial infarction Family history of stroke Social History (Updated 11/03/24 @ 20:48 by Ana Pitts RN) Smoking Status: Former smoker tobacco type: cigarettes second hand exposure: Yes alcohol intake: former substance use type: denies use current occupational status: disabled Travel in the last 8 weeks?: None household members: spouse housing: house current occupational exposures/hazards: No caffeine: Yes Have you lived/traveled outside [place] in past 30 days?: No Contact w/someone who lives/traveled outside US past 30 days?: No Exposure to someone with infectious disease in past 14 days?: No Do you have a fever (greater than 100.4 F or 38 C)?: No Have you tested positive for COVID-19?: No Exposed to someone with COVID-19 in past 14 days?: No Do you have a sore throat?: No Do you have a cough?: No Do you have any weakness?: No Are you experiencing any nausea/vomitting?: No Do you have any diarrhea?: No Are you experiencing any unusual bleeding?: No Do you have any muscle aches/pain?: No Do you have any abdominal pain?: No Are you experiencing loss of taste or smell?: No Other Medical History Have you received the Flu Vaccine for this season: No Have you received the Pneumonia Vaccine: No <Ximena Sotelo (ED), DIRECTOR OF CONTENT AND PROGRAMMING - Last Filed: 11/03/24 22:34> ROS Obtained: Yes Systems reviewed as appropriate & no additional complaints except as documented Constitutional Constitutional: Reports as per HPI Physical Exam <Ximena Sotelo (ED), DIRECTOR OF CONTENT AND PROGRAMMING - Last Filed: 11/03/24 22:34> General General appearance: alert and obese Head Head exam: normocephalic Eye Eye exam: Present PERRL ENT ENT exam: Present mucous membranes moist Neck Neck exam: Present trachea midline Chest Chest inspection: Present symmetric chest wall rise Respiratory Respiratory exam: Present normal lung sounds bilaterally Cardiovascular Cardiovascular exam: Present regular rate, normal rhythm, normal heart sounds, +S1 and +S2 Abdominal Exam Abdominal exam: Present soft and normal bowel sounds Extremities Exam Extremities exam: Present other (Right lower extremity prosthetic) Neurological Exam Neurological exam: Present alert and oriented X3 Psychiatric Psychiatric exam: Present agitated and anxious Skin Skin exam: Present dry HEART Score <Ximena Sotelo (ED), DIRECTOR OF CONTENT AND PROGRAMMING - Last Filed: 11/03/24 22:34> HEART Score HEART Score assessment performed?: Yes History (anamnesis): Slightly suspicious ECG: Non-specific disturbance Age: 45-65 years Risk factors: 1-2 risk factors Troponin: </= normal limit HEART Score: 3 Critical Care <Ximena Sotelo (ED), DIRECTOR OF CONTENT AND PROGRAMMING - Last Filed: 11/03/24 22:34> Critical Care Time Critical Care Time: No Medical Decision Making <Ximena Sotelo (ED), DIRECTOR OF CONTENT AND PROGRAMMING - Last Filed: 11/03/24 22:34> Goyo Inquiry Pt receiving controlled substance: No Goyo was queried for this patient: No Vital Signs Vital Signs: 11/03/24 16:00 11/03/24 16:19 11/03/24 16:45 Temperature 98.6 F Temperature Source Oral Pulse Rate 97 H 78 Pulse Rate [Left Radial] 96 H Respiratory Rate 16 Blood Pressure 207/111 H 216/123 H Blood Pressure [Right Arm] 207/111 H Blood Pressure Mean Blood Pressure Mean [Right Arm] 143 Blood Pressure Source Blood Pressure Source [Right Arm] Automatic Cuff Blood Pressure Position Blood Pressure Position [Right Arm] Sitting 02 Sat by Pulse Oximetry 98 97 96 Oxygen Delivery Method Room Air 11/03/24 17:03 11/03/24 17:31 11/03/24 18:01 Temperature Temperature Source Pulse Rate 73 137 H 131 H Pulse Rate [Left Radial] Respiratory Rate 20 17 Blood Pressure 148/94 H 160/77 H 154/93 H Blood Pressure [Right Arm] Blood Pressure Mean 104 101 Blood Pressure Mean [Right Arm] Blood Pressure Source Blood Pressure Source [Right Arm] Blood Pressure Position Blood Pressure Position [Right Arm] 02 Sat by Pulse Oximetry 96 94 L 97 Oxygen Delivery Method 11/03/24 19:16 11/03/24 19:16 11/03/24 19:52 Temperature 98.6 F Temperature Source Oral Pulse Rate 116 H Pulse Rate [Left Radial] Respiratory Rate 24 16 Blood Pressure 177/75 H 177/75 H Blood Pressure [Right Arm] Blood Pressure Mean 109 Blood Pressure Mean [Right Arm] Blood Pressure Source Automatic Cuff Blood Pressure Source [Right Arm] Blood Pressure Position Sitting Blood Pressure Position [Right Arm] 02 Sat by Pulse Oximetry Oxygen Delivery Method Room Air 11/03/24 20:00 Temperature 97.9 F Temperature Source Oral Pulse Rate Pulse Rate [Left Radial] 130 H Respiratory Rate 22 Blood Pressure Blood Pressure [Right Arm] 167/78 H Blood Pressure Mean Blood Pressure Mean [Right Arm] 107 Blood Pressure Source Blood Pressure Source [Right Arm] Automatic Cuff Blood Pressure Position Blood Pressure Position [Right Arm] Supine 02 Sat by Pulse Oximetry 95 Oxygen Delivery Method Room Air Lab Data Labs: Lab Results 11/03/24 17:20: WBC 9.2, RBC 4.54, Hgb 12.1 L, Hct 37.6, MCV 82.8, MCH 26.7 L, MCHC 32.2, RDW 14.4, Plt Count 221, MPV 9.5, Neut % (Auto) 78.5, Lymph % (Auto) 12.2, [place] % (Auto) 5.5, Eos % (Auto) 2.6, Baso % (Auto) 0.4, Neut # (Auto) 7.2, Lymph # (Auto) 1.1, [place] # (Auto) 0.5, Eos # (Auto) 0.2, Baso # (Auto) 0.0, ESR 46 H, D-Dimer 0.54 H, Sodium 137, Potassium 3.7, Chloride 100, Carbon Dioxide 25, Anion Gap 15.7 H, BUN 15, Creatinine 0.90, Estimated Creat Clear 73, Estimated GFR 66, Est GFR ( Amer) 80, Glucose 296 H, Calcium 9.1, Magnesium 1.9, Total Bilirubin 0.6, AST 40 H, ALT 33, Alkaline Phosphatase 82, Troponin I 0.02, C-Reactive Protein 27.4 H, NT-Pro-B Natriuret Pep 209 H, Total Protein 7.1, Albumin 4.0, Globulin 3.1, Albumin/Globulin Ratio 1.3, Lipase 101, Procalcitonin 0.068, Acetone Level None detected 11/03/24 18:02: VBG pH 7.40, VBG pCO2 40.7, VBG pO2 87.1 H, VBG HCO3 24.9, VBG Total CO2 26.1, VBG O2 Saturation 96.4 H, VBG Base Excess 0.1, VBG Lactic Acid 4.0 H 11/03/24 18:09: Urine Color Yellow, Urine Appearance Clear, Urine pH 7.0, Ur Specific [place] 1.015, Urine Protein 1+ A, Urine Glucose (UA) 3+, Urine Ketones Negative, Urine Blood Trace-i, Urine Nitrate Negative, Urine Bilirubin Negative, Urine Urobilinogen 0.2, Ur Leukocyte Esterase Negative, Urine RBC None, Urine WBC Occasional, Ur Squamous Epith Cells Occasional, Urine Bacteria Trace 11/03/24 17:20 11/03/24 17:20 Response Orders (Tests/Meds): ED MEDICATIONS Generic Name Dose Route Start Last Admin Trade Name Freq PRN Reason Stop Dose Admin Acetaminophen 650 mg 11/03/24 18:53 Acetaminophen 325mg Tab PO 12/03/24 18:52 Q4HP PRN Fever or Mild Pain (1-3) Hydrocodone Bitart/Acetaminophen 1 tab 11/03/24 18:53 Hydrocodone/Apap 5/325 Mg Tablet PO 12/03/24 18:52 Q4HP PRN Mild to Moderate Pain (1-6) Apixaban 5 mg 11/03/24 21:00 11/03/24 20:24 Apixaban 5mg Tablet PO 12/03/24 20:59 5 mg BID CORDELIA Administration Furosemide 40 mg 11/03/24 21:00 11/03/24 20:24 Furosemide 40mg/4ml Vial IV 12/03/24 20:59 40 mg DAILY CORDELIA Administration Guaifenesin 600 mg 11/03/24 21:00 11/03/24 20:24 Guaifenesin 600 Mg Tab.Er.12h PO 12/03/24 20:59 600 mg BID CORDELIA Administration Hydralazine HCl 50 mg 11/03/24 19:34 Hydralazine Hcl 25mg Tablet PO 12/03/24 20:59 TID PRN sbp>180 dbp >110 Ceftriaxone Sodium 2 gm/ 100 mls @ 200 mls/hr 11/03/24 18:30 11/03/24 19:43 Sodium Chloride IV 11/13/24 18:29 200 mls/hr Q24H CORDELIA Administration Azithromycin 500 mg/ Sodium 250 mls @ 250 mls/hr 11/03/24 21:15 11/03/24 21:45 Chloride IV 11/13/24 21:14 250 mls/hr Q24H CORDELIA Administration Insulin Human Lispro 0 unit 11/03/24 21:00 11/03/24 20:50 Humalog 100 Units/Ml 10ml Vial (Ssi) SUBCUT 12/03/24 20:59 4 unit ACHS CORDELIA Administration Protocol Metoprolol Tartrate 2.5 mg 11/03/24 20:09 11/03/24 20:50 Metoprolol Tartrate 5mg/5ml Vial IV 12/03/24 20:08 2.5 mg Q6HP PRN Administration heart rate > 120 sustained Morphine Sulfate 2 mg 11/03/24 18:59 Morphine 2mg/Ml Syringe IV 12/03/24 18:58 Q4HP PRN Severe Pain (7-10) Ondansetron HCl 4 mg 11/03/24 18:53 11/03/24 21:55 Ondansetron 4mg/2ml Vial IV 12/03/24 18:52 4 mg Q8HP PRN Administration Nausea Sodium Chloride 10 ml 11/03/24 18:59 Sodium Chloride 0.9% 10ml Flush Syringe IV 12/03/24 18:58 NEEDED PRN Maintain IV Site Discontinued Medications Generic Name Dose Route Start Last Admin Trade Name Freq PRN Reason Stop Dose Admin Hydrocodone Bitart/Acetaminophen 2 tab 11/03/24 17:39 11/03/24 18:31 Hydrocodone/Apap 5/325 Mg Tablet PO 11/03/24 17:40 2 tab ONCE ONE Administration Azithromycin 250 mg 11/04/24 09:00 Azithromycin 250mg Tablet PO 11/14/24 08:59 DAILY CORDELIA Diltiazem HCl 10 mg 11/03/24 17:11 11/03/24 17:31 Diltiazem 25mg/5ml Vial IV 11/03/24 17:12 10 mg ONCE ONE Administration Diltiazem HCl 20 mg 11/03/24 17:56 11/03/24 18:31 Diltiazem 25mg/5ml Vial IV 11/03/24 17:57 20 mg ONCE ONE Administration Azithromycin 500 mg/ Sodium 250 mls @ 250 mls/hr 11/03/24 18:30 11/03/24 22:18 Chloride IV 11/13/24 18:29 Not Given Q24H CORDELIA Ceftriaxone Sodium 1 gm/ 50 mls @ 100 mls/hr 11/04/24 09:00 Sodium Chloride IV 11/14/24 08:59 Q24H CORDELIA ORDERS Category Date Time Status Chest XR -- portable [XR chest portable] Stat Exams 11/03/24 16:24 Completed Acetone, Serum (Rapid) Stat Lab 11/03/24 17:20 Completed BNP [NT Pro Brain Natriuretic Pep.] Stat Lab 11/03/24 17:20 Completed CBC [Complete Blood Count Auto Diff] Stat Lab 11/03/24 17:20 Completed CRP [C-Reactive Protein] Stat Lab 11/03/24 17:20 Completed Comprehensive Metabolic Panel Stat Lab 11/03/24 17:20 Completed D-Dimer Stat Lab 11/03/24 17:20 Completed Erythrocyte Sedimentation Rate Stat Lab 11/03/24 17:20 Completed Full Resp Panel w/COVID (H) Routine Lab 11/03/24 21:00 Received Lactic Acid Stat Lab 11/03/24 21:33 Completed Lipase Stat Lab 11/03/24 17:20 Completed Magnesium Stat Lab 11/03/24 17:20 Completed Procalcitonin Stat Lab 11/03/24 17:20 Completed Trop I [Troponin I] Stat Lab 11/03/24 17:20 Completed Troponin I Q3H Lab 11/03/24 19:34 Completed Troponin I Q3H Lab 11/03/24 21:33 Completed Urinalysis and Microscopic Stat Lab 11/03/24 18:09 Completed Blood Culture Stat Micro 11/03/24 19:34 Received Venous Blood Gas Stat RT 11/03/24 18:02 Completed MDM Narrative Medical Decision Narrative: patient is a 49-year-old female presenting to the emergency department for evaluation of chest pain, shortness of breath and weeks of feeling unwell. Also has a black fingered. Patient is hemodynamically stable and nontoxic-appearing upon arrival, afebrile. Differential diagnosis includes hypertension, chest pain, shortness of breath,etc. Workup will be conducted with hematologic labs, specific imaging Initial inventions include crystalloid bolus, analgesics. Patient has run of A-fib RVR. We gave patient 10 mg of IV diltiazem. Initial workup reviewed by me hematologic labs are remarkable for D-dimer of his 0.54 so according to Calc she age-adjusted out for CTA. Low likelihood of VTE or PE. Glucose was 296 which is elevated. Other labs were unremarkable.. Patient's x-ray showed mild CHF and a developing infiltrate. Please see radiology read for formal report. Patient's lactate was 4 I did not give fluid bolus for sepsis because of fluid overload concerns and mild CHF on x-ray. Patient's heart rate has been up and down so I have given [address] Garvin and I have discussed this. Patient has been admitted to the hospitalist team with mild CHF, developing infiltrate and paroxysmal A-fib. <Brandon Garvin MD - Last Filed: 11/03/24 17:12> Vital Signs Vital Signs: 11/03/24 16:00 11/03/24 16:19 11/03/24 16:45 Temperature 98.6 F Temperature Source Oral Pulse Rate 97 H 78 Pulse Rate [Left Radial] 96 H Respiratory Rate 16 Blood Pressure 207/111 H 216/123 H Blood Pressure [Right Arm] 207/111 H Blood Pressure Mean Blood Pressure Mean [Right Arm] 143 Blood Pressure Source Blood Pressure Source [Right Arm] Automatic Cuff Blood Pressure Position Blood Pressure Position [Right Arm] Sitting 02 Sat by Pulse Oximetry 98 97 96 Oxygen Delivery Method Room Air 11/03/24 17:03 11/03/24 17:31 11/03/24 18:01 Temperature Temperature Source Pulse Rate 73 137 H 131 H Pulse Rate [Left Radial] Respiratory Rate 20 17 Blood Pressure 148/94 H 160/77 H 154/93 H Blood Pressure [Right Arm] Blood Pressure Mean 104 101 Blood Pressure Mean [Right Arm] Blood Pressure Source Blood Pressure Source [Right Arm] Blood Pressure Position Blood Pressure Position [Right Arm] 02 Sat by Pulse Oximetry 96 94 L 97 Oxygen Delivery Method 11/03/24 19:16 11/03/24 19:16 11/03/24 19:52 Temperature 98.6 F Temperature Source Oral Pulse Rate 116 H Pulse Rate [Left Radial] Respiratory Rate 24 16 Blood Pressure 177/75 H 177/75 H Blood Pressure [Right Arm] Blood Pressure Mean 109 Blood Pressure Mean [Right Arm] Blood Pressure Source Automatic Cuff Blood Pressure Source [Right Arm] Blood Pressure Position Sitting Blood Pressure Position [Right Arm] 02 Sat by Pulse Oximetry Oxygen Delivery Method Room Air 11/03/24 20:00 Temperature 97.9 F Temperature Source Oral Pulse Rate Pulse Rate [Left Radial] 130 H Respiratory Rate 22 Blood Pressure Blood Pressure [Right Arm] 167/78 H Blood Pressure Mean Blood Pressure Mean [Right Arm] 107 Blood Pressure Source Blood Pressure Source [Right Arm] Automatic Cuff Blood Pressure Position Blood Pressure Position [Right Arm] Supine 02 Sat by Pulse Oximetry 95 Oxygen Delivery Method Room Air Lab Data Labs: Lab Results 11/03/24 17:20: WBC 9.2, RBC 4.54, Hgb 12.1 L, Hct 37.6, MCV 82.8, MCH 26.7 L, MCHC 32.2, RDW 14.4, Plt Count 221, MPV 9.5, Neut % (Auto) 78.5, Lymph % (Auto) 12.2, [place] % (Auto) 5.5, Eos % (Auto) 2.6, Baso % (Auto) 0.4, Neut # (Auto) 7.2, Lymph # (Auto) 1.1, [place] # (Auto) 0.5, Eos # (Auto) 0.2, Baso # (Auto) 0.0, ESR 46 H, D-Dimer 0.54 H, Sodium 137, Potassium 3.7, Chloride 100, Carbon Dioxide 25, Anion Gap 15.7 H, BUN 15, Creatinine 0.90, Estimated Creat Clear 73, Estimated GFR 66, Est GFR ( Amer) 80, Glucose 296 H, Calcium 9.1, Magnesium 1.9, Total Bilirubin 0.6, AST 40 H, ALT 33, Alkaline Phosphatase 82, Troponin I 0.02, C-Reactive Protein 27.4 H, NT-Pro-B Natriuret Pep 209 H, Total Protein 7.1, Albumin 4.0, Globulin 3.1, Albumin/Globulin Ratio 1.3, Lipase 101, Procalcitonin 0.068, Acetone Level None detected 11/03/24 18:02: VBG pH 7.40, VBG pCO2 40.7, VBG pO2 87.1 H, VBG HCO3 24.9, VBG Total CO2 26.1, VBG O2 Saturation 96.4 H, VBG Base Excess 0.1, VBG Lactic Acid 4.0 H 11/03/24 18:09: Urine Color Yellow, Urine Appearance Clear, Urine pH 7.0, Ur Specific [place] 1.015, Urine Protein 1+ A, Urine Glucose (UA) 3+, Urine Ketones Negative, Urine Blood Trace-i, Urine Nitrate Negative, Urine Bilirubin Negative, Urine Urobilinogen 0.2, Ur Leukocyte Esterase Negative, Urine RBC None, Urine WBC Occasional, Ur Squamous Epith Cells Occasional, Urine Bacteria Trace Response Orders (Tests/Meds): ED MEDICATIONS Generic Name Dose Route Start Last Admin Trade Name Freq PRN Reason Stop Dose Admin Acetaminophen 650 mg 11/03/24 18:53 Acetaminophen 325mg Tab PO 12/03/24 18:52 Q4HP PRN Fever or Mild Pain (1-3) Hydrocodone Bitart/Acetaminophen 1 tab 11/03/24 18:53 Hydrocodone/Apap 5/325 Mg Tablet PO 12/03/24 18:52 Q4HP PRN Mild to Moderate Pain (1-6) Apixaban 5 mg 11/03/24 21:00 11/03/24 20:24 Apixaban 5mg Tablet PO 12/03/24 20:59 5 mg BID CORDELIA Administration Furosemide 40 mg 11/03/24 21:00 11/03/24 20:24 Furosemide 40mg/4ml Vial IV 12/03/24 20:59 40 mg DAILY CORDELIA Administration Guaifenesin 600 mg 11/03/24 21:00 11/03/24 20:24 Guaifenesin 600 Mg Tab.Er.12h PO 12/03/24 20:59 600 mg BID CORDELIA Administration Hydralazine HCl 50 mg 11/03/24 19:34 Hydralazine Hcl 25mg Tablet PO 12/03/24 20:59 TID PRN sbp>180 dbp >110 Ceftriaxone Sodium 2 gm/ 100 mls @ 200 mls/hr 11/03/24 18:30 11/03/24 19:43 Sodium Chloride IV 11/13/24 18:29 200 mls/hr Q24H CORDELIA Administration Azithromycin 500 mg/ Sodium 250 mls @ 250 mls/hr 11/03/24 21:15 11/03/24 21:45 Chloride IV 11/13/24 21:14 250 mls/hr Q24H CORDELIA Administration Insulin Human Lispro 0 unit 11/03/24 21:00 11/03/24 20:50 Humalog 100 Units/Ml 10ml Vial (Ssi) SUBCUT 12/03/24 20:59 4 unit ACHS CORDELIA Administration Protocol Metoprolol Tartrate 2.5 mg 11/03/24 20:09 11/03/24 20:50 Metoprolol Tartrate 5mg/5ml Vial IV 12/03/24 20:08 2.5 mg Q6HP PRN Administration heart rate > 120 sustained Morphine Sulfate 2 mg 11/03/24 18:59 Morphine 2mg/Ml Syringe IV 12/03/24 18:58 Q4HP PRN Severe Pain (7-10) Ondansetron HCl 4 mg 11/03/24 18:53 11/03/24 21:55 Ondansetron 4mg/2ml Vial IV 12/03/24 18:52 4 mg Q8HP PRN Administration Nausea Sodium Chloride 10 ml 11/03/24 18:59 Sodium Chloride 0.9% 10ml Flush Syringe IV 12/03/24 18:58 NEEDED PRN Maintain IV Site Discontinued Medications Generic Name Dose Route Start Last Admin Trade Name [place] PRN Reason Stop Dose Admin Hydrocodone Bitart/Acetaminophen 2 tab 11/03/24 17:39 11/03/24 18:31 Hydrocodone/Apap 5/325 Mg Tablet PO 11/03/24 17:40 2 tab ONCE ONE Administration Azithromycin 250 mg 11/04/24 09:00 Azithromycin 250mg Tablet PO 11/14/24 08:59 DAILY CORDELIA Diltiazem HCl 10 mg 11/03/24 17:11 11/03/24 17:31 Diltiazem 25mg/5ml Vial IV 11/03/24 17:12 10 mg ONCE ONE Administration Diltiazem HCl 20 mg 11/03/24 17:56 11/03/24 18:31 Diltiazem 25mg/5ml Vial IV 11/03/24 17:57 20 mg ONCE ONE Administration Azithromycin 500 mg/ Sodium 250 mls @ 250 mls/hr 11/03/24 18:30 11/03/24 22:18 Chloride IV 11/13/24 18:29 Not Given Q24H CORDELIA Ceftriaxone Sodium 1 gm/ 50 mls @ 100 mls/hr 11/04/24 09:00 Sodium Chloride IV 11/14/24 08:59 Q24H CORDELIA ORDERS Category Date Time Status Chest XR -- portable [XR chest portable] Stat Exams 11/03/24 16:24 Completed Acetone, Serum (Rapid) Stat Lab 11/03/24 17:20 Completed BNP [NT Pro Brain Natriuretic Pep.] Stat Lab 11/03/24 17:20 Completed CBC [Complete Blood Count Auto Diff] Stat Lab 11/03/24 17:20 Completed CRP [C-Reactive Protein] Stat Lab 11/03/24 17:20 Completed Comprehensive Metabolic Panel Stat Lab 11/03/24 17:20 Completed D-Dimer Stat Lab 11/03/24 17:20 Completed Erythrocyte Sedimentation Rate Stat Lab 11/03/24 17:20 Completed Full Resp Panel w/COVID ([facility]) Routine Lab 11/03/24 21:00 Received Lactic Acid Stat Lab 11/03/24 21:33 Completed Lipase Stat Lab 11/03/24 17:20 Completed Magnesium Stat Lab 11/03/24 17:20 Completed Procalcitonin Stat Lab 11/03/24 17:20 Completed Trop I [Troponin I] Stat Lab 11/03/24 17:20 Completed Troponin I Q3H Lab 11/03/24 19:34 Completed Troponin I Q3H Lab 11/03/24 21:33 Completed Urinalysis and Microscopic Stat Lab 11/03/24 18:09 Completed Blood Culture Stat Micro 11/03/24 19:34 Received Venous Blood Gas Stat RT 11/03/24 18:02 Completed ECG Data Tracing #1: Attestation: I reviewed this ECG and interpreted as documented below: ECG Narrative: A-fib with rapid ventricular response with a ventricular rate of [address] elevation or depression. No T wave inversions. QTc normal at 411
--- NOTE | 2024-11-03 17:08 | ECG_ITS ---
APPROVED REPORT Exam: Resting ECG HR:139 bpm ECG Measurements Heart Rate 139 AXES QRSd 89 QRS -50 QT 330 T 60 QTc 411 Conclusion ATRIAL FIBRILLATION WITH RAPID VENTRICULAR RESPONSE LEFT ANTERIOR FASCICULAR BLOCK [QRS AXIS <= -45, QR IN I, RS IN II] POSSIBLE ANTERIOR MYOCARDIAL INFARCTION , PROBABLY OLD [30 ms Q WAVE IN V3/V4, OR R < 0.2 mV IN V4] ABNORMAL ECG UNCONFIRMED REPORT A-fib with RVR. No ST elevation or depression QTc normal at 411 Electronically signed by : HARLAN ENRIQUEZ, 11/04/2024 18:18:58
[2024-11-03 17:27] LABS: Hematocrit 37.6 % (37.0-47.0); Hemoglobin 12.1 g/dL (12.2-16.2); Immature Granulocytes % 0.8 %; Mean Corpuscular HGB Conc 32.2 g/dL (31.8-35.4); Mean Corpuscular Hemoglobin 26.7 pg (27.0-31.2); Mean Corpuscular Volume 82.8 fl (81-99); Nucleated Red Blood Cells % 0 %; Platelet Count 221 K/mm3 (142-424); Red Blood Count 4.54 M/mm3 (4.20-5.40); Red Cell Distribution Width-SD 42.0 fL; White Blood Count 9.2 K/mm3 (4.8-10.8)
[2024-11-03 17:35] LABS: Albumin Level 4.0 g/dl (3.5-5.0); Chloride 100 mmol/L (98-107); Potassium 3.7 mmoL/L (3.5-5.1); Sodium 137 mmol/L (136-145)
[2024-11-03 17:38] LABS: Alanine Aminotransferase 33 U/L (12-78); Albumin/Globulin Ratio 1.3 (1.1-1.8); Alkaline Phosphatase 82 U/L (38-126); Anion Gap 15.7 mEq/L (5-15); Aspartate Amino Transferase 40 U/L (14-36); Bilirubin,Total 0.6 mg/dl (0.2-1.3); Blood Urea Nitrogen 15 mg/dl (7-17); Calcium 9.1 mg/dl (8.4-10.2); Carbon Dioxide 25 mmol/L (22.0-30.0); Creatinine Clearance Estimated 73 mL/min (50-200); Creatinine,Serum 0.90 mg/dl (0.52-1.04); Estimated Glomerular Filt Rate 66 ml/min (>60); GFR (African American) 80 ML/MIN (>60); Globulin 3.1 g/dL (1.3-3.2); Glucose 296 mg/dl (74-100); Lipase 101 U/L (23-300); Total Protein,Serum 7.1 g/dl (6.3-8.2)
[2024-11-03 17:39] LABS: Magnesium 1.9 mg/dl (1.6-2.3)
[2024-11-03 17:43] LABS: D-Dimer 0.54 ug/mL (0.0-0.5)
[2024-11-03 17:50] LABS: NT Pro Brain Natriuretic Pep. 209 pg/mL (0-125)
[2024-11-03 17:52] LABS: Troponin I 0.02 ng/ml (0.00-0.034)
[2024-11-03 18:10] LABS: VBG HCO3 24.9 mmol/L (23-30); VBG PCO2 40.7 mmol/L (35-51); VBG PH 7.40 mmol/L (7.31-7.41); VBG PO2 87.1 mmol/L (28-40)
[2024-11-03 18:14] LABS: Lactate Venous 4.0 mmol/L (0.4-2.0)
[2024-11-03 18:16] LABS: Microscopic, Urine URINE MICROSCOPIC (MICROSCOPIC)
[2024-11-03 18:23] LABS: Bilirubin,Urine Negative (Negative); Color,Urine YELLOW (Yellow); Glucose,Urine (UA) 3+ (Negative); Ketones,Urine Negative (Negative); Leukocyte Esterase,Urine Negative (Negative); PH,Urine 7.0 (5.0-8.5); Protein,Urine 1+ (Negative); Specific Gravity, Urine 1.015 (1.005-1.030); Urobilinogen,Urine 0.2 EU/dl (0.2)
[2024-11-03] MEDS: HYDROCODONE/APAP 5/325 MG TABLET 2 TAB PO (18:31)
--- NOTE | 2024-11-03 18:39 | PC.NURSE ---
spoke to house regarding a bed
--- NOTE | 2024-11-03 18:51 | PC.NURSE ---
attempted blood cultures. called lab for assistance. lab stated they would come get the next trop and blood cultures at once.
[2024-11-03 18:54] LABS: Bacteria,Urine Trace /lpf; Squamous Epithelial Cell,Urine Occasional #/hpf (0-5); WBC,Urine Occasional #/hpf (0-3)
--- NOTE | 2024-11-03 19:03 | PC.NURSE ---
lab at bedside
--- NOTE | 2024-11-03 19:04 | P.HP_ITS ---
<Statement entered by Doug Cueto MD - 11/05/24 10:09> Personally evaluated patient and agree with the plan of care as outlined by the LANDSCAPE H[employer]ICULTURE INSTRUCTOR. 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 Due to patient's symptoms, she presented to the emergency room for evaluation. While in the emergency room, patient's presenting blood pressure was 207/111, patient was found to be in intermittent atrial fibrillation with rapid ventricular response, and plain films of the chest was consistent with pulmonary edema and possible superimposed pneumonia. Due to patient's symptoms, patient is being admitted for further management. During my evaluation of the patient, patient states that she has been feeling unwell for at least 2 weeks. She reports having some nausea with some chills. She has a nonproductive cough. Moreover, patient has been complaining of intermittent chest pain located in the center of her chest that has a radiation to the right side of the neck, c chest pain does have some associated shortness of breath, or diaphoresis, and as previously mentioned has intermittent duration. Review of patient's EMR shows she had a recent left heart cath performed by Dr. Santana in 2018 and it was nonrevealing for any coronary artery disease patient had clean coronary arteries and the only finding was an elevated end-diastolic pressure. Medical management was recommended at this point. Patient is currently prescribed Eliquis and management of her atrial fibrillation with rapid ventricular response. She reports that she did take her a.m. dose but has not taken her p.m. dose. She is currently having some dif ficulty laying flat with some lower extremity edema while at home. Currently she is denying any lightheadedness, dizziness, fever, rigor, vomiting, abdominal pain, headache, or diarrhea. Additional pertinent vitals obtained including hemoglobin of 12.1,A D-dimer of 0.54, blood glucose of 296, AST of 40, BNP of 209, and a venous lactic acid of 4. [facility] Disclaimer: The information contained in this section may have been updated after the patient was seen, as this information can be updated by other users. Medical History Acute pancreatitis Family history of lymphoma Below knee amputation Urinary tract infection Seizure disorder Fibromyalgia Cellulitis Pancreatitis History of gastroesophageal reflux (GERD) High blood pressure High cholesterol Afib Mood disorder CHF (congestive heart failure) Diabetes Tachycardia Surgical History History of cholecystectomy History of appendectomy History of section History of hysterectomy History of colonoscopy Family History Other Family history of cancer Family history of myocardial infarction Family history of stroke Social History Smoking Status: Former smoker tobacco type: cigarettes second hand exposure: Yes alcohol intake: former substance use type: denies use current occupational status: disabled Travel in the last 8 weeks?: None household members: spouse housing: house current occupational exposures/hazards: No caffeine: Yes Have you lived/traveled outside [place] in past 30 days?: No Contact w/someone who lives/traveled outside [place] past 30 days?: No Exposure to someone with infectious disease in past 14 days?: No Do you have a fever (greater than 100.4 F or 38 C)?: No Have you tested positive for COVID-19?: No Exposed to someone with COVID-19 in past 14 days?: No Do you have a sore throat?: No Do you have a cough?: No Do you have any weakness?: No Do you have any diarrhea?: No Are you experiencing any unusual bleeding?: No Do you have any muscle aches/pain?: No Do you have any abdominal pain?: No Are you experiencing loss of taste or smell?: No Other Medical History Have you received the Flu Vaccine for this season: No Have you received the Pneumonia Vaccine: No Review of Systems Review of Systems Review of systems:: pertinent systems reviewed and negative unless documented below Constitutional Constitutional: Reports chills Eyes Eyes: Reports system reviewed and no additional complaints, except as documented ENT Ears, Nose, Mouth, and Throat: Reports system reviewed and no additional complaints, except as documented *Cardiovascular Cardiovascular: Reports chest pain, Reports dyspnea, Reports edema, Reports irregular heart rhythm and Reports orthopnea *Respiratory Respiratory: Reports cough and Reports dyspnea *Gastrointestinal Gastrointestinal: Reports system reviewed and no additional complaints, except as documented *Genitourinary Genitourinary: Reports system reviewed and no additional complaints, except as documented *Musculoskeletal Musculoskeletal: Reports abnormal gait Integumentary/Breasts Skin/Breast: Reports system reviewed and no additional complaints, except as documented *Neurologic Neurologic: Reports system reviewed and no additional complaints, except as documented and Reports abnormal gait Psychiatric Psychiatric: Reports system reviewed and no additional complaints, except as documented Endocrine Endocrine: Reports system reviewed and no additional complaints, except as documented Hematologic/Lymphatic Hematologic/Lymphatic: Reports system reviewed and no additional complaints, except as documented Allergic/Immunologic Allergic/Immunologic: Reports system reviewed and no additional complaints, except as documented Meds Home Medications and Allergies Home Medications ?Medication ?Instructions ?Recorded ?Confirmed ?Type gabapentin 300 mg capsule 300 mg PO TID #90 caps 02/1211/03/24 Rx fluticasone propionate 50 2 spray intranasal DAILY PRN nasal 03/09/24 11/03/24 Rx mcg/actuation nasal congestion #16 grams spray,suspension apixaban 5 mg tablet 5 mg PO BID atrial fibrillat ion 30 06/01/24 11/03/24 Rx days #60 tabs desvenlafaxine succinate 50 mg 50 mg PO DAILY #90 tabs 06/01/24 11/03/24 Rx tablet,extended release 24 hr (Pristiq) diltiazem HCl 300 mg 300 mg PO DAILY #90 caps 01/1611/03/24 Rx capsule,extended release 24 hr hydralazine 50 mg tablet 50 mg PO TID #90 tabs 11/03/24 Rx losartan 100 mg tablet 100 mg PO DAILY #90 tabs 01/1611/03/24 Rx spironolactone 50 mg tablet 50 mg PO BID PRN Fluid #60 tabs 06/01/24 11/03/24 Rx torsemide 20 mg tablet 40 mg (2 x 20 mg) PO DAILY P RN 06/01/24 11/03/24 Rx diuretic #60 tabs trazodone 150 mg tablet 150 mg PO HS #90 tabs 11/03/24 Rx furosemide 20 mg tablet (Lasix) 20 mg PO DAILY #7 tabs 06/13/24 11/03/24 Rx blood-glucose sensor (Dexcom G6 #1 ea 06/17/24 5 History Sensor device) blood-glucose transmitter (Dexcom #1 ea 06/17/2411/03 History G6 Transmitter device) cariprazine 3 mg capsule (Vraylar) 3 mg PO DAILY #90 c aps 06/17/24 11/03/24 Rx mupirocin 2 % topical ointment 1 applic topical TID #2 2 grams 06/17/24 11/03/24 Rx hydroxyzine HCl 25 mg tablet 50 mg (2 x 25 mg) PO Q6HP PRN 07/27/24 11/03/24 Rx anxiety #120 tabs insulin lispro 100 unit/mL SQ 07/27/24 11/03/24 Histor y subcutaneous solution hydrocodone 5 mg-acetaminophen 325 1 tab PO TIDP PRN p ain #45 tabs 10/15/24 11/03/24 Rx mg tablet hydralazine 100 mg tablet 100 mg PO TID #90 tabs 10/2611/03/24 Rx New Prescriptions to Start Prescriptions: Allergies Allergy/AdvReac Type Severity Reaction Status Date / Time No Known Allergies Allergy Verified 11/03/24 13:58 Exam Data for Last 24 hours Vital signs and Labs for Last 24 Hours: Temp Pulse Resp BP Pulse Ox O2 Del Method 98.6 F 131 H 17 154/93 H 97 Room Air 11/03/24 16:00 11/03/24 18:01 11/03/24 18:01 11/03/24 18:01 11/03/24 18:01 11/03/24 16:00 Laboratory Results - last 24 hr 11/03/24 17:20: WBC 9.2, RBC 4.54, Hgb 12.1 L, Hct 37.6, MCV 82.8, MCH 26.7 L, MCHC 32.2, RDW 14.4, Plt Count 221, MPV 9.5, Neut % (Auto) 78.5, Lymph % (Auto) 12.2, [place] % (Auto) 5.5, Eos % (Auto) 2.6, Baso % (Auto) 0.4, Neut # (Auto) 7.2, Lymph # (Auto) 1.1, [place] # (Auto) 0.5, Eos # (Auto) 0.2, Baso # (Auto) 0.0, D- [place]imer 0.54 H, Sodium 137, Potassium 3.7, Chloride 100, Carbon Dioxide 25, Anion Gap 15.7 H, BUN 15, Creatinine 0.90, Estimated Creat Clear 73, Estimated GFR 66, Est GFR ( Amer) 80, Glucose 296 H, Calcium 9.1, Magnesium 1.9, Total Bilirubin 0.6, AST 40 H, ALT 33, Alkaline Phosphatase 82, Troponin I 0.02, NT-Pro-B Natriuret Pep 209 H, Total Protein 7.1, Albumin 4.0, Globulin 3.1, Albumin/Globulin Ratio 1.3, Lipase 101 11/03/24 18:02: VBG pH 7.40, VBG pCO2 40.7, VBG pO2 87.1 H, VBG HCO3 24.9, VBG Total CO2 26.1, VBG O2 Saturation 96.4 H, VBG Base Excess 0.1, VBG Lactic Acid 4.0 H 11/03/24 18:09: Urine Color Yellow, Urine Appearance Clear, Urine pH 7.0, Ur Specific [place] 1.015, Urine Protein 1+ A, Urine Glucose (UA) 3+, Urine Ketones Negative, Urine Blood Trace-i, Urine Nitrate Negative, Urine Bilirubin Negative, Urine Urobilinogen 0.2, Ur Leukocyte Esterase Negative, Urine RBC None, Urine WBC Occasional, Ur Squamous Epith Cells Occasional, Urine Bacteria Trace I & O for Last 24 hours: Intake & Output 10/31/24 11/01/24 11/02/24 11/03/24 23:59 23:59 23:59 23:59 Weight 158.757 kg Constitutional Constitutional: morbidly obese and cooperative *Routine HEENT Exam Head: Present normocephalic and atraumatic Eye: Present EOMI, PERRL and normal accommodation ENT: Present mucous membranes moist *Routine Neck Exam Neck: Present supple, full ROM and trachea midline *Routine Respiratory Exam Respiratory: Present distant breath sounds and diminished air movement *Routine Cardiovascular Exam Cardiovascular: Present tachycardia and irregular rhythm *Routine Abdominal Exam Abdominal: Present soft and normoactive bowel sounds *Routine Rectal Exam Rectal:: deferred *Routine Genitalia Exam Genitalia:: deferred *Routine Extremities Exam Extremities: Present edema and amputation Routine Back/Spine/Pelvis Exam Back/Spine: Present full ROM *Routine Skin Exam Skin: Present intact, dry and warm *Routine Neurological Exam Neurological: Present alert, oriented X3 and CN II-XII intact Routine Psychiatric Exam Psychiatric: Present normal affect and normal thought process H&P: Result Impressions 49-year-old female who has a past medical history of HFpEF presents with a systolic blood pressure greater than 200 found to be in atrial fibrillation with rapid ventricular response. Imaging was consistent with heart failure and possible superimposed pneumonia. Patient was nontoxic in appearance Assessment and Plan *Assessment and plan (1) (HFpEF) heart failure with preserved ejection fraction: Status: Chronic Qualifiers: Heart failure chronicity: acute on chronic Qualified Code(s): I50.33 - Acute on chronic diastolic (congestive) heart failure Category: Medical Code(s): I50.30 - Unspecified diastolic (congestive) heart failure (2) Atrial fibrillation with rapid ventricular response: Status: Acute Category: Medical Code(s): I48.91 - Unspecified atrial fibrillation (3) Pneumonia: Status: Acute Category: Medical Code(s): J18.9 - Pneumonia, unspecified organism (4) Chest pain: Status: Acute Qualifiers: Chest pain type: unspecified Qualified Code(s): R07.9 - Chest pain, unspecified Category: Medical Code(s): R07.9 - Chest pain, unspecified (5) Diabetes mellitus: Status: Chronic Qualifiers: Diabetes mellitus complication status: with other specified complication Diabetes mellitus intermodal customer service insulin use: unspecified intermodal customer service insulin use status Diabetes mellitus type: type 2 Qualified Code(s): E11.69 - Type 2 diabetes mellitus with other specified complication Category: Medical Code(s): E11.9 - Type 2 diabetes mellitus without complications (6) Elevated brain natriuretic peptide (BNP) level: Status: Acute Category: Medical Code(s): R79.89 - Other specified abnormal findings of blood chemistry (7) Lactic acid acidosis: Status: Acute Category: Medical Code(s): E87.20 - Acidosis, unspecified Plan Assessment: Acute exacerbation of diastolic dysfunction congestive heart failure: HFpEF - Will give 40 mg Lasix IV twice daily - Obtain 2D echo in a.m. - Last left heart cath performed in 2018 revealed clean coronary arteries - Will consider wallpaper inspector consultation - Hopefully once patient becomes closer to euvolemia her blood pressure will improve and her symptomology will resolve Atrial fibrillation with rapid ventricular response - Will continue patient's Eliquis to 5 mg p.o. twice daily first dose at 9 PM - Will continue patient's Cardizem once med rec is updated - Will consider metoprolol 2.5 mg IV push for heart rate greater than 120 - 2D echo Pneumonia: Most likely community-acquired - Patient's vascular congestion has a possibility of a superimposed pneumonia - Will trend patient's procalcitonin - Patient's white blood cell count is currently normal - Will continue Rocephin 1 g daily with 250 mg azithromycin p.o. - If procalcitonin remains within normal limits, will de-escalate antibiotics - 600 mg of Mucinex p.o. twice daily Chest pain -Will obtain 2D echo - Will trend patient's troponin - Will consider wallpaper inspector consultation Hyperglycemia -Most likely in the setting of type 2 diabetes - Sliding scale insulin AC and at bedtime with mild scale coverage Elevated BNP - Most likely due to hypervolemia from exacerbation of heart failure Lactic acidosis - Most likely in the setting of intravascular volume depletion from heart failure - Will trend Hypertensive urgency - 50 mg of hydralazine p.o. every 8 hours as needed systolic blood pressure greater than 180 or diastolic blood pressure greater than 110 - Once med rec has been updated will restart patient's antihypertensives - Currently there are no findings consistent with endorgan damage Plan: Admit patient to the MedSurg unit on telemetry Activity as tolerated Saline lock Vital signs every 4 1800 ADA/cardiac diet Will trend patient's troponin CBC/BMP daily Follow milligrams [place] p.o. every 4 hours pain monitor pain 2 mg morphine IV push every 4 hours given severe pain 4 mg Zofran IV push. Aspirin as well Blood cultures x 2 Full code I will discuss his case with attending physician Dr. Cueto and I look forward to more input
[2024-11-03 19:10] LABS: C-Reactive Protein 27.4 mg/L (0-4)
[2024-11-03 19:24] LABS: Procalcitonin 0.068 ng/mL (0.0-2.0)
[2024-11-03 19:36] LABS: Acetone, Serum (Rapid) None Detected (None Detect)
--- NOTE | 2024-11-03 20:14 | PC.NURSE ---
pt arrived on floor via stretcher at this time
[2024-11-03 20:20] LABS: Troponin I 0.03 ng/ml (0.00-0.034)
[2024-11-03] MEDS: APIXABAN 5MG TABLET 5 MG PO (20:24)
[2024-11-03] MEDS: guaiFENesin 600 MG TAB.ER.12H PO (20:24)
[2024-11-03] MEDS: FUROSEMIDE 40MG/4ML VIAL 40 MG IV (20:24)
[2024-11-03 20:48] LABS: POC Glucose,Bedside 223 (70-110)
[2024-11-03] MEDS: humaLOG 100 UNITS/ML 10ML VIAL (SSI) SUBCUT (20:50)
[2024-11-03] MEDS: METOPROLOL TARTRATE 5MG/5ML VIAL 2.5 MG IV (20:50)
--- NOTE | 2024-11-03 21:04 | PC.NURSE ---
Patient has a Dexcom + OMNIPOD insulin pump in place. Patient's glucose level was checked via facility's Accu-Chek to compare with her Dexcom reading; glucose level via glucometer was 223 and glucose level via Dexcom was 278. She verbalized an understanding of utilizing this facility's Accu-Chek glucometer to monitor her glucose levels, as well as utilizing the sliding scale coverage to keep track with administration of insulin per MAR through the nursing staff.
[2024-11-03 21:08] LABS: Adenovirus,PCR Not Detected (NotDetected); Chlamydophila Pneumoniae, PCR Not Detected (NotDetected); Coronavirus 19, PCR Not Detected (NotDetected); Coronovirus HKU1,PCR Not Detected (NotDetected); Influenza A, PCR Not Detected (NotDetected); Influenza AH1, 2009 Not Detected (NotDetected); Influenza AH1, PCR Not Detected (NotDetected); Influenza AH3,PCR Not Detected (NotDetected); Influenza B, PCR Not Detected (NotDetected); Mycoplasma Pneumoniae, PCR Not Detected (NotDetected); Parainfluenza 1, PCR Not Detected (NotDetected); Parainfluenza 2, PCR Not Detected (NotDetected); Parainfluenza 3, PCR Not Detected (NotDetected); Parainfluenza 4, PCR Not Detected (NotDetected)
[2024-11-03] MEDS: AZITHROMYCIN 500 MG in 0.9 % SODIUM CHLORIDE 250 ML 250 MG IV (21:45)
[2024-11-03] MEDS: ONDANSETRON 4MG/2ML VIAL 4 MG IV (21:55)
[2024-11-03 22:05] LABS: Troponin I 0.04 ng/ml (0.00-0.034)
--- NOTE | 2024-11-03 22:06 | PC.NURSE ---
Addendum entered by Allyson Cabrales RN 11/03/24 22:56: Currently, the patient's heart rate is maintaining 88 to 90 bpm. Patient remains resting in bed without any further complaints. Original Note: Intravenous metoprolol tartrate was administered at 20:50 per MAR. The patient's heart rate was maintaining between 120s and 130s bpm prior to administration. At this time, the patient's heart rate is maintaining between 110s and 120s bpm and would occasionally increase into the 130s during activity, for the patient is eating bedtime snacks. Other vital signs were also taken (see vital sign assessment documentation for 21:50). Blood pressures are also still elevated. Abhay Welsh APRN was paged to notify him about the elevated heart rates. He stated to allow more time to let the metoprolol take effect + the initiation of diuresis will help decrease her blood pressure as well. Abhay Welsh APRN also stated to page him in another hour if the patient's heart rate continues to maintain > 120s bpm. Continuous child monitor remains in place. Patient verbalized an understanding of her current treatment plan. At this time, she is resting upright in bed with no further complaints.
[2024-11-03 22:11] LABS: Reflex Lactic Add Lactic Reflex
[2024-11-04] VITALS (10 sets, daily range): BP systolic 132–152; BP diastolic 59–72; PULSE 70–98; RESP 17–18; TEMP 36.5–36.8; O2SAT 96; BMI 54.1
--- NOTE | 2024-11-04 04:00 | PC.NURSE ---
Mrs Eliz Maldonado was newly admitted this shift on behalf of the documented diagnoses pneumonia and CHF exacerbation. Admission assessments were completed by the charge nurse (Eugenia Pitts RN), and home medication reconciliation was completed by me using the patient's external medication history (further access opportunities to confirm home medications unavailable at this time, patient also a bit unsure of the medications she takes). Patient is alert and oriented x4. Her has remained at the bedside for the majority of this shift; the patient stated that her is her primary caregiver at home. Despite documented seizure disorder history, seizure pads were refused (patient stated that it has been a long time since a seizure has occurred, also stated that she does not take any seizure medications). Scheduled medications were administered as appropriately per MAR. Diuresis with Lasix initiated this shift with adequate urine output measured. A female purewick remains in place for urination needs. One dose of intravenous metoprolol tartrate was administered per MAR for elevated heart rate (see prior nurse note); currently, the patient's heart rate has been maintaining between 70s to 90s bpm per continuous telemetry. Normal sinus rhythm was observed after midnight and will be confirmed via EKG (was irregular upon initial assessment/arrival to the second floor). Diminished lung sounds and hypoactive bowel sounds heard upon auscultation as well. Zofran was given once due to report of nausea after consuming food items. She also reports having difficulties with swallowing at times and expressed fears of choking. Aspiration precautions taken this shift. Patient is unable to ambulate effectively due to below knee amputations and requires max assistance during transfers + repositioning/turning in bed. Elevated blood pressures have decreased overnight (see vital sign documentation). Facial skin erythema noted. Afebrile. ACHS glucose checks performed. At this time, the patient is resting upright in bed without any further complaints. No new needs thus far. Call light within reach.
[2024-11-04 05:31] LABS: POC Glucose,Bedside 202 (70-110)
[2024-11-04] MEDS: humaLOG 100 UNITS/ML 10ML VIAL (SSI) SUBCUT ×2 (05:32→11:19)
--- NOTE | 2024-11-04 06:06 | ECG_ITS ---
APPROVED REPORT Exam: Resting ECG HR:72 bpm ECG Measurements Heart Rate 72 AXES MS 185 P 37 QRSd 102 QRS -43 QT 443 T 79 QTc 467 Conclusion SINUS RHYTHM LEFT AXIS DEVIATION [QRS AXIS < -30] POSSIBLE ANTERIOR MYOCARDIAL INFARCTION , OF INDETERMINATE AGE [30 ms Q WAVE IN V3/V4, OR R < 0.2 mV IN V4] ABNORMAL ECG UNCONFIRMED REPORT Electronically signed by : Jude Betancur MD 11/06/2024 07:42:35
[2024-11-04] MEDS: DEFINITY US ECHO CONTRAST 2ML INJ 2 MG IV (07:37)
[2024-11-04] MEDS: ONDANSETRON 4MG/2ML VIAL 4 MG IV (07:52)
--- NOTE | 2024-11-04 08:00 | CA_ITS ---
APPROVED REPORT EXAM: Comprehensive 2D, Doppler, and color-flow Echocardiogram with contrast Alterations Sewer: Gail [place] CRT Ht: 5 ft 7 in Wt: 350lbs BSA: 2.57 BP: 167/78 mmHg Indications: Shortness of Breath, Atrial Fibrillation, Diabetes, Hyperlipidemia Echo Enhancing Agent Indication: Endocardial border delineation Agent(s) / Amount(s) Used: Definity 2 cc M-Mode Dimensions RVDd 2.36 cm (0.9-2.6) LA Diam 3.96 cm (1.9-4.0) LVDd 5.06 cm (3.5-5.7) LVDs 2.81 cm (3.5-5.7) IVSd 1.56 cm (0.6-1.1) PWd 1.06 cm (0.6-1.1) EF (Teich) 75.50% FS 44.50% EDV (Teich) 121.60 mL ESV (Teich) 29.80 mL LV Diastology E Decel Time 177 (160-240 msec) E/A Ratio 1.94 MED A' 3.20 cm/s LAT A' 4.00 cm/s Aortic Valve AO Peak GR. 5.70 mmHg Mitral Valve MV A Velocity 45.0 (40-130 cm/s) E/A Ratio 1.94 Pulmonary Valve PV Peak Velocity 88.0 (50-150 cm/s) Tricuspid Valve TR P. Velocity 107.00 cm/s RAP Estimate 10.00 mmHg RVSP 14.60 mmHg Left Ventricle The left ventricle is normal size. Left ventricular systolic function is low-normal. There is increased left ventricular wall thickness. There is mild hypokinesis of the septal and inferoseptal LV bray. The left ventricular diastolic function is indeterminate. No left ventricle thrombus noted on this study. LVEF is 50-55% Right Ventricle The right ventricle is not well visualized. Atria The left atrium size is normal. The right atrium is not well visualized. The interatrial septum is not well visualized. Aortic Valve The aortic valve is mildly thickened. There is no hemodynamically significant aortic valvular stenosis. Trace aortic regurgitation is present. Mitral Valve The mitral valve is normal in structure. No evidence of mitral valve stenosis. Trace mitral regurgitation is present. Tricuspid Valve The tricuspid valve leaflets are not well visualized. Trace tricuspid regurgitation. There is insufficient TR jet to estimate RVSP. Pulmonic Valve The pulmonary valve is not well visualized. Great Vessels The aortic root is normal in size. IVC is normal in size and collapses >50% with inspiration. Pericardium There is no pericardial effusion. Other Information Study Quality: Technically Difficult Conclusion Technically difficult study. Low-normal LV systolic function (LVEF 50-55%). Mild hypokinesis of the septal and inferoseptal LV bray. RV not well visualized. No significant valvular stenosis or regurgitation in the visualized valves. Electronically signed by : Priya Bain MD 11/04/2024 12:40:16
[2024-11-04] MEDS: APIXABAN 5MG TABLET 5 MG PO (08:31)
[2024-11-04] MEDS: FUROSEMIDE 40MG/4ML VIAL 40 MG IV (08:31)
[2024-11-04] MEDS: IRBESARTAN 150MG TAB 150 MG PO (08:32)
[2024-11-04] MEDS: HYDRALAZINE HCL 25MG TABLET 50 MG PO ×2 (08:32→14:23)
[2024-11-04] MEDS: HYDROCODONE/APAP 5/325 MG TABLET 1 TAB PO ×2 (08:32→14:28)
[2024-11-04] MEDS: guaiFENesin 600 MG TAB.ER.12H PO (08:32)
[2024-11-04 09:46] LABS: Hematocrit 38.7 % (37.0-47.0); Hemoglobin 12.4 g/dL (12.2-16.2); Immature Granulocytes % 0.8 %; Mean Corpuscular HGB Conc 32.0 g/dL (31.8-35.4); Mean Corpuscular Hemoglobin 27.3 pg (27.0-31.2); Mean Corpuscular Volume 85.1 fl (81-99); Nucleated Red Blood Cells % 0 %; Platelet Count 223 K/mm3 (142-424); Red Blood Count 4.55 M/mm3 (4.20-5.40); Red Cell Distribution Width-SD 44.3 fL; White Blood Count 8.7 K/mm3 (4.8-10.8)
[2024-11-04 10:06] LABS: Chloride 104 mmol/L (98-107); Potassium 3.8 mmoL/L (3.5-5.1); Sodium 139 mmol/L (136-145)
[2024-11-04 10:09] LABS: Blood Urea Nitrogen 20 mg/dl (7-17); Creatinine Clearance Estimated 63 mL/min (50-200); Creatinine,Serum 1.00 mg/dl (0.52-1.04); Estimated Glomerular Filt Rate 59 ml/min (>60); GFR (African American) 71 ML/MIN (>60)
[2024-11-04 10:10] LABS: Anion Gap 9.8 mEq/L (5-15); Calcium 9.1 mg/dl (8.4-10.2); Carbon Dioxide 29 mmol/L (22.0-30.0); Glucose 223 mg/dl (74-100)
[2024-11-04 11:09] LABS: Troponin I 0.03 ng/ml (0.00-0.034)
[2024-11-04 11:11] LABS: Procalcitonin 0.079 ng/mL (0.0-2.0)
--- NOTE | 2024-11-04 11:12 | P.CONCA_ITS ---
History of Present Illness History of Present Illness Consult date: 11/04/24 Consult reason: hypertension Chief complaint: Hypertension and chest pain History of present illness: 49-year-old white female former patient of our office, last seen in 2022. 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 Ms. Maldonado has a history of morbid obesity with BMI of 54, nonobstructive coronary artery disease, paroxysmal atrial fibrillation, insulin-dependent diabetes, hypertension. We last saw her here in the hospital in 2022 when she presented with lower extremity cellulitis including maggot infestation. 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 She is very immobile at home and requires significant assistance with transitions. We have not seen her since that admission. 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 On workup her troponin is 0.04, initial EKG showed A-fib RVR, 139 bpm, subsequent shows sinus rhythm with questionably new Q waves noted anterior and inferior leads, proBNP 209, ESR and CRP are both elevated. CXR shows questionable pulmonary vascular congestion and infrahilar consolidation suggestive of pneumonia. WBC normal. Afebrile. This morning patient reports chest pain is improving with blood pressure control. Her lungs are clear on exam and she has no peripheral edema. [facility] Disclaimer: The information contained in this section may have been updated after the patient was seen, as this information can be updated by other users. Medical History Acute pancreatitis Family history of lymphoma Below knee amputation Urinary tract infection Seizure disorder Fibromyalgia Cellulitis Pancreatitis History of gastroesophageal reflux (GERD) High blood pressure High cholesterol Afib Mood disorder CHF (congestive heart failure) Diabetes Tachycardia Surgical History History of cholecystectomy History of appendectomy History of section History of hysterectomy History of colonoscopy Family History Other Family history of cancer Family history of myocardial infarction Family history of stroke Social History Smoking Status: Former smoker tobacco type: cigarettes second hand exposure: Yes alcohol intake: former substance use type: denies use current occupational status: disabled Travel in the last 8 weeks?: None household members: spouse housing: house current occupational exposures/hazards: No caffeine: Yes Have you lived/traveled outside [place] in past 30 days?: No Contact w/someone who lives/traveled outside [place] past 30 days?: No Exposure to someone with infectious disease in past 14 days?: No Do you have a fever (greater than 100.4 F or 38 C)?: No Have you tested positive for COVID-19?: No Exposed to someone with COVID-19 in past 14 days?: No Do you have a sore throat?: No Do you have a cough?: No Do you have any weakness?: No Are you experiencing any nausea/vomitting?: No Do you have any diarrhea?: No Are you experiencing any unusual bleeding?: No Do you have any muscle aches/pain?: No Do you have any abdominal pain?: No Are you experiencing loss of taste or smell?: No Review of Systems Constitutional Constitutional: Denies fatigue and Reports weakness Eyes Eyes: Denies loss of vision ENT Ears, Nose, Mouth, and Throat: Denies hearing loss *Cardiovascular Cardiovascular: Reports chest pain and Reports dyspnea *Respiratory Respiratory: Denies cough and Reports dyspnea *Gastrointestinal Gastrointestinal: Denies change in stool character, Denies nausea and Denies vomiting *Musculoskeletal Musculoskeletal: Reports abnormal gait Integumentary/Breasts Skin/Breast: Denies changing lesions *Neurologic Neurologic: Reports system reviewed and no additional complaints, except as documented, Reports abnormal gait, Denies loss of vision and Reports weakness Endocrine Endocrine: Denies fatigue Exam Data for Last 24 hours Vital signs and Labs for Last 24 Hours: Temp Pulse Resp BP Pulse Ox O2 Del Method 97.9 F 76 18 152/72 H 96 Room Air 11/04/24 07:39 11/04/24 07:39 11/04/24 07:39 11/04/24 07:39 11/04/24 08:15 11/04/24 09:00 Laboratory Results - last 24 hr 11/03/24 17:20: WBC 9.2, RBC 4.54, Hgb 12.1 L, Hct 37.6, MCV 82.8, MCH 26.7 L, MCHC 32.2, RDW 14.4, Plt Count 221, MPV 9.5, Neut % (Auto) 78.5, Lymph % (Auto) 12.2, [place] % (Auto) 5.5, Eos % (Auto) 2.6, Baso % (Auto) 0.4, Neut # (Auto) 7.2, Lymph # (Auto) 1.1, [place] # (Auto) 0.5, Eos # (Auto) 0.2, Baso # (Auto) 0.0, ESR 46 H, D-Dimer 0.54 H, Sodium 137, Potassium 3.7, Chloride 100, Carbon Dioxide 25, Anion Gap 15.7 H, BUN 15, Creatinine 0.90, Estimated Creat Clear 73, Estimated GFR 66, Est GFR ( Amer) 80, Glucose 296 H, Calcium 9.1, Magnesium 1.9, Total Bilirubin 0.6, AST 40 H, ALT 33, Alkaline Phosphatase 82, Troponin I 0.02, C-Reactive Protein 27.4 H, NT-Pro-B Natriuret Pep 209 H, Total Protein 7.1, Albumin 4.0, Globulin 3.1, Albumin/Globulin Ratio 1.3, Lipase 101, Procalcitonin 0.068, Acetone Level None detected 11/03/24 18:02: VBG pH 7.40, VBG pCO2 40.7, VBG pO2 87.1 H, VBG HCO3 24.9, VBG Total CO2 26.1, VBG O2 Saturation 96.4 H, VBG Base Excess 0.1, VBG Lactic Acid 4.0 H 11/03/24 18:09: Urine Color Yellow, Urine Appearance Clear, Urine pH 7.0, Ur Specific [place] 1.015, Urine Protein 1+ A, Urine Glucose (UA) 3+, Urine Ketones Negative, Urine Blood Trace-i, Urine Nitrate Negative, Urine Bilirubin Negative, Urine Urobilinogen 0.2, Ur Leukocyte Esterase Negative, Urine RBC None, Urine WBC Occasional, Ur Squamous Epith Cells Occasional, Urine Bacteria Trace 11/03/24 19:34: Troponin I 0.03 11/03/24 20:36: POC Glucose 223 H 11/03/24 21:00: Chlamy pneumoniae PCR Not detected, Adenovirus (PCR) Not detected, B. pertussis DNA (PCR) Not detected, Coronavirus OC43 (PCR) Not detected, Coronavirus HKU1 (PCR) Not detected, Coronavirus 229E (PCR) Not detected, SARS-CoV-2 (PCR) Not detected, Coronavirus NL63 (PCR) Not detected, Human Metapneumovir PCR Not detected, Influenza A (H1) PCR Not detected, Influ A (H1N1/09) PCR Not detected, Influenza A (H3) PCR Not detected, Influenza Type A (PCR) Not detected, Influenza Type B (PCR) Not detected, M. pneumoniae (PCR) Not detected, Parainfluenza 1 (PCR) Not detected, Parainfluenza 2 (PCR) Not detected, Parainfluenza 3 (PCR) Not detected, Parainfluenza 4 (PCR) Not detected, RSV (PCR) Not detected, Entero/Rhino (PCR) Not detected 11/03/24 21:33: Lactate 2.8 H, Troponin I 0.04 H 11/04/24 05:24: POC Glucose 202 H 11/04/24 09:32: WBC 8.7, RBC 4.55, Hgb 12.4, Hct 38.7, MCV 85.1, MCH 27.3, MCHC 32.0, RDW 14.5, Plt Count 223, MPV 9.4, Neut % (Auto) 74.1, Lymph % (Auto) 14.9, [place] % (Auto) 6.6, Eos % (Auto) 3.1, Baso % (Auto) 0.5, Neut # (Auto) 6.4, Lymph # (Auto) 1.3, [place] # (Auto) 0.6, Eos # (Auto) 0.3, Baso # (Auto) 0.0, Sodium 139, Potassium 3.8, Chloride 104, Carbon Dioxide 29, Anion Gap 9.8, BUN 20 H D, Creatinine 1.00, Estimated Creat Clear 63, Estimated GFR 59, Est GFR ( Amer) 71, Glucose 223 H D, Calcium 9.1 I & O for Last 24 hours: Intake & Output 11/01/24 11/02/24 11/03/24 11/04/24 23:59 23:59 23:59 23:59 Intake Total 222 / 822 920 / 920 Output Total 1000 / 1300 900 / 900 Balance -778 / -478 Weight 350 lb 345 lb 3.2 oz Constitutional Constitutional: no acute distress, morbidly obese and cooperative *Routine HEENT Exam Eye: Present PERRL *Routine Respiratory Exam Respiratory: Present CTA bilaterally; Absent accessory muscle use, wheezes or crackles *Routine Cardiovascular Exam Cardiovascular: Present RRR, Normal S1 and Normal S2; Absent murmur, gallop or rubs *Routine Abdominal Exam Abdominal: Present soft; Absent tenderness *Routine Extremities Exam Extremities: Present pulses intact; Absent cyanosis or edema Comments: RLE BKA *Routine Skin Exam Skin: Present intact; Absent erythema or wounds *Routine Neurological Exam Neurological: Present alert and oriented X3 Routine Psychiatric Exam Psychiatric: Present cooperative Meds Home Medications and Allergies Home Medications ?Medication ?Instructions ?Recorded ?Confirmed ?Type apixaban 5 mg tablet 5 mg PO BID atrial fibrillat ion 30 06/01/24 11/03/24 Rx days #60 tabs desvenlafaxine succinate 50 mg 50 mg PO DAILY #90 tabs 06/01/24 11/03/24 Rx tablet,extended release 24 hr (Pristiq) diltiazem HCl 300 mg 300 mg PO DAILY #90 caps 01/1611/03/24 Rx capsule,extended release 24 hr losartan 100 mg tablet 100 mg PO DAILY #90 tabs 01/1611/03/24 Rx spironolactone 50 mg tablet 50 mg PO BID PRN Fluid #60 tabs 06/01/24 11/03/24 Rx trazodone 150 mg tablet 150 mg PO HS #90 tabs 11/03/24 Rx blood-glucose sensor (Dexcom G6 #1 ea 06/17/24 5 History Sensor device) blood-glucose transmitter (Dexcom #1 ea 06/17/2411/03 History G6 Transmitter device) mupirocin 2 % topical ointment 1 applic topical TID #2 2 grams 06/17/24 11/03/24 Rx hydralazine 100 mg tablet 100 mg PO TID #90 tabs 10/2611/03/24 Rx blood-glucose sensor (Dexcom G7 11/03/24 11/03/24 His tory Sensor device) insulin aspart U-100 100 unit/mL 100 unit SQ TITR 10/2311/03/24 History subcutaneous solution insulin pump cart,auto,BT,G6/7 11/03/24 11/03/24 Hist ory (Omnipod 5 G6-G7 Pods (Gen 5) subcutaneous cartridge) lancets 28 gauge (FreeStyle 11/03/24 11/03/24 History Lancets) New Prescriptions to Start Prescriptions: Allergies Allergy/AdvReac Type Severity Reaction Status Date / Time No Known Allergies Allergy Verified 11/03/24 13:58 Assessment and Plan *Assessment and plan (1) Hypertensive emergency: Status: Acute Category: Medical Code(s): I16.1 - Hypertensive emergency (2) Community acquired pneumonia: Status: Acute Category: Medical Code(s): J18.9 - Pneumonia, unspecified organism (3) (HFpEF) heart failure with preserved ejection fraction: Status: Acute Category: Medical Code(s): I50.30 - Unspecified diastolic (congestive) heart failure Plan Hypertensive Emergency - BP 216/123 with associated chest pain, mild Trop elevation - Symptoms improving with BP now 152/72 - Home BP Meds: Cardizem 300 mg daily, hydralazine 100 mg 3 times daily, losartan 100 mg daily, and lactone 50 mg daily - Meds Here: Irbesartan 150 mg daily, hydralazine 50 mg 3 times daily - Question compliance - normal renal arteries per [facility] 2018 - Super morbid obesity and sedentary lifestle/diet contributing - Continue home meds for now. BID BP Log as outpatient, check 2nd troponin Elevated Trop - 1 trop at 0.04 in setting of hypertensive emergency with chest tightness and pneumonia - [facility] 2018 - normal cors and normal renal arteries - cont Eliquis, BB, add statin in setting of DM - check 2nd trop - check 2D ECHO - consider IP LHC vs OP stress test Community Acquired PNA - Right infrahilar opacity noted on chest x-ray - Patient has shortness of breath and chest pain - WBC normal, afebrile - Plans per primary service HFpEF - normal ECHO, morbid obesity, DELEON, mild vasc congestion on CXR, ProBNP 200 - PRN diuretics - consider OP GLP-1 PAF - known dx - presented RVR - now SR - cont Eliquis and Metoprolol Morbid Obesity, BMI 54 - severe and uncontrolled, life limiting obesity - pt severely sedentary at home, largely bedbound - prior RLE infection with maggots requiring amputation 2022 Hx RLE BKA Amputation - recurrent cellulitis, maggot infestation, infection 2022 DM-II - 8.6 - consider OP GLP-1 and SLGT-2 - glucose control per primary service HLD - well controlled with LDL 58 - add stating for ASCVD benefit in setting of DM CV stable with BP control. Continue PNA treatment. Further plans pending 2nd trop and ECHO. ADDENDUM: 2D echo shows normal BiV function and no wall motion abnormalities. Second troponin is normal. She is back in sinus rhythm continue BP control and treatment of pneumonia. We can follow-up with her in the office for further ischemic workup.
[2024-11-04] MEDS: SODIUM CHLORIDE 3% 15ML NEB 3 ML IH (12:41)
[2024-11-04 12:49] LABS: Thyroid Stimulating Hormone 2.80 uIU/mL (0.465-4.68)
--- NOTE | 2024-11-04 13:18 | P.DS_ITS ---
<Statement entered by Doug Cueto MD - 11/05/24 10:09> Personally evaluated patient and agree with the plan of care as outlined by the VEH[employer] TECHNICIAN. 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 Due to patient's symptoms, she presented to the emergency room for evaluation. While in the emergency room, patient's presenting blood pressure was 207/111, patient was found to be in intermittent atrial fibrillation with rapid ventricular response, and plain films of the chest was consistent with pulmonary edema and possible superimposed pneumonia. Due to patient's symptoms, patient is being admitted for further management. During my evaluation of the patient, patient states that she has been feeling unwell for at least 2 weeks. She reports having some nausea with some chills. She has a nonproductive cough. Moreover, patient has been complaining of intermittent chest pain located in the center of her chest that has a radiation to the right side of the neck, c chest pain does have some associated shortness of breath, or diaphoresis, and as previously mentioned has intermittent duration. Review of patient's EMR shows she had a recent left heart cath performed by Dr. Santana in 2018 and it was nonrevealing for any coronary artery disease patient had clean coronary arteries and the only finding was an elevated end-diastolic pressure. Medical management was recommended at this point. Patient is currently prescribed Eliquis and management of her atrial fibrillation with rapid ventricular response. She reports that she did take her a.m. dose but has not taken her p.m. dose. She is currently having some difficulty laying flat with some lower extremity edema while at home. Currently she is denying any lightheadedness, dizziness, fever, rigor, vomiting, abdominal pain, headache, or diarrhea. Additional pertinent vitals obtained including hemoglobin of 12.1,A D-dimer of 0.54, blood glucose of 296, AST of 40, BNP of 209, and a venous lactic acid of 4. Hospital Course Hospital Course Hospital Course: Ms. Sewell is a 49-year-old female who was admitted to the medical surgical floor from the emergency department with acute HFpEF exacerbation, community-acquired pneumonia, and atrial fibrillation with RVR. Cardiology was consulted, plan of care was as follows: #Hypertension #A-fib with RVR #Chest pain ? Patient was admitted to the hospital with hypertensive urgency and A-fib with RVR, heart rate in the 130s. Patient has known history of paroxysmal A-fib. She takes Eliquis 5 mg twice daily and diltiazem 300 mg ER daily. Patient was given metoprolol 2.5 mg IV push in the ED x 1 where she converted back to NSR. She has remained in NSR during her admission. Initial blood pressure was very elevated in the ED, patient's blood pressure was monitored during admission and remained stable. Patient currently takes losartan 100 mg daily, hydralazine 100 mg 3 times daily, spironolactone 50 mg twice daily as needed. BP at discharge 137/67. Heart rate regular at 78 bpm. ?Cardiology was consulted and recommend patient's start statin and beta-eduin. Patient discharged with atorvastatin 40 mg at bedtime and metoprolol succinate 25 mg daily. Troponin initially bumped to 0.04. Trending down to 0.03. Patient initially did complain of chest discomfort radiating to her arm/neck. Patient denies chest pain at this time. Echo showed LVEF approximately 50%. Cardiology recommended outpatient ischemia workup. LDL well-controlled at 58. #Acute HFpEF exacerbation #Pneumonia ? Patient found to have community-acquired pneumonia, right infrahilar opacity noticed on chest x-ray. Patient shows no signs of infection, not tachycardic, afebrile, no leukocytosis. Patient received Rocephin and azithromycin IV during admission, transition to Levaquin 750 mg daily for total of 7 days. ? Patient proBNP elevated at 209, potentially falsely low due to obesity. Patient does not appear volume overloaded, lungs CTA, trace edema in left lower extremity, nonpitting. Patient did receive 2 doses of IV Lasix during admiss ion. Will continue on home medication spironolactone 50 mg twice daily as needed. #Insulin-dependent diabetes mellitus ? Patient A1c 11/16 is 8.6%. Patient currently uses insulin pump without basal bolus. She did see Dr. Lance, endocrinology, yesterday before coming to the ED. Recommendations for a GLP-1 medication, will start Ozempic 0.25 weekly. Patient has tried and failed Trulicity, metformin, long-acting insulin. #Morbid obesity, BMI 54 ? Patient is severely obese, sedentary lifestyle. She is largely bedbound, occasional use of her wheelchair. 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 She does state that she is trying to better her health and has been eating better. She should continue to see endocrinology. Total time spent on discharge 38 minutes in counseling, documentation, chart review, and direct care with patient. Exam Data for Last 24 hours Vital signs and Labs for Last 24 Hours: Temp Pulse Resp BP Pulse Ox O2 Del Method 98.2 F 78 18 137/67 96 Room Air 11/04/24 11:58 11/04/24 12:43 11/04/24 12:43 11/04/24 11:58 11/04/24 11:58 11/04/24 13:00 Laboratory Results - last 24 hr 11/03/24 17:20: WBC 9.2, RBC 4.54, Hgb 12.1 L, Hct 37.6, MCV 82.8, MCH 26.7 L, MCHC 32.2, RDW 14.4, Plt Count 221, MPV 9.5, Neut % (Auto) 78.5, Lymph % (Auto) 12.2, [place] % (Auto) 5.5, Eos % (Auto) 2.6, Baso % (Auto) 0.4, Neut # (Auto) 7.2, Lymph # (Auto) 1.1, Harding # (Auto) 0.5, Eos # (Auto) 0.2, Baso # (Auto) 0.0, ESR 46 H, D-Dimer 0.54 H, Sodium 137, Potassium 3.7, Chloride 100, Carbon Dioxide 25, Anion Gap 15.7 H, BUN 15, Creatinine 0.90, Estimated Creat Clear 73, Estimated GFR 66, Est GFR ( Amer) 80, Glucose 296 H, Calcium 9.1, Magnesium 1.9, Total Bilirubin 0.6, AST 40 H, ALT 33, Alkaline Phosphatase 82, Troponin I 0.02, C-Reactive Protein 27.4 H, NT-Pro-B Natriuret Pep 209 H, Total Protein 7.1, Albumin 4.0, Globulin 3.1, Albumin/Globulin Ratio 1.3, Lipase 101, Procalcitonin 0.068, Acetone Level None detected 11/03/24 18:02: VBG pH 7.40, VBG pCO2 40.7, VBG pO2 87.1 H, VBG HCO3 24.9, VBG Total CO2 26.1, VBG O2 Saturation 96.4 H, VBG Base Excess 0.1, VBG Lactic Acid 4.0 H 11/03/24 18:09: Urine Color Yellow, Urine Appearance Clear, Urine pH 7.0, Ur Specific [place] 1.015, Urine Protein 1+ A, Urine Glucose (UA) 3+, Urine Ketones Negative, Urine Blood Trace-i, Urine Nitrate Negative, Urine Bilirubin Negative, Urine Urobilinogen 0.2, Ur Leukocyte Esterase Negative, Urine RBC None, Urine WBC Occasional, Ur Squamous Epith Cells Occasional, Urine Bacteria Trace 11/03/24 19:34: Troponin I 0.03 11/03/24 20:36: POC Glucose 223 H 11/03/24 21:00: Chlamy pneumoniae PCR Not detected, Adenovirus (PCR) Not detected, B. pertussis DNA (PCR) Not detected, Coronavirus OC43 (PCR) Not detected, Coronavirus HKU1 (PCR) Not detected, Coronavirus 229E (PCR) Not detected, SARS-CoV-2 (PCR) Not detected, Coronavirus NL63 (PCR) Not detected, Human Metapneumovir PCR Not detected, Influenza A (H1) PCR Not detected, Influ A (H1N1/09) PCR Not detected, Influenza A (H3) PCR Not detected, Influenza Type A (PCR) Not detected, Influenza Type B (PCR) Not detected, M. pneumoniae (PCR) Not detected, Parainfluenza 1 (PCR) Not detected, Parainfluenza 2 (PCR) Not detected, Parainfluenza 3 (PCR) Not detected, Parainfluenza 4 (PCR) Not detected, RSV (PCR) Not detected, Entero/Rhino (PCR) Not detected 11/03/24 21:33: Lactate 2.8 H, Troponin I 0.04 H 11/04/24 05:24: POC Glucose 202 H 11/04/24 09:32: WBC 8.7, RBC 4.55, Hgb 12.4, Hct 38.7, MCV 85.1, MCH 27.3, MCHC 32.0, RDW 14.5, Plt Count 223, MPV 9.4, Neut % (Auto) 74.1, Lymph % (Auto) 14.9, Hard[place] % (Auto) 6.6, Eos % (Auto) 3.1, Baso % (Auto) 0.5, Neut # (Auto) 6.4, Lymph # (Auto) 1.3, [place] # (Auto) 0.6, Eos # (Auto) 0.3, Baso # (Auto) 0.0, Sodium 139, Potassium 3.8, Chloride 104, Carbon Dioxide 29, Anion Gap 9.8, BUN 20 H D, Creatinine 1.00, Estimated Creat Clear 63, Estimated GFR 59, Est GFR ( Amer) 71, Glucose 223 H D, Calcium 9.1, Troponin I 0.03, Procalcitonin 0.079, TSH 2.80 Temp Pulse Resp BP Pulse Ox O2 Del Method 97.9 F 76 18 152/72 H 96 Room Air 11/04/24 07:39 11/04/24 07:39 11/04/24 07:39 11/04/24 07:39 11/04/24 08:15 11/04/24 09:00 Laboratory Results - last 24 hr 11/03/24 17:20: WBC 9.2, RBC 4.54, Hgb 12.1 L, Hct 37.6, MCV 82.8, MCH 26.7 L, MCHC 32.2, RDW 14.4, Plt Count 221, MPV 9.5, Neut % (Auto) 78.5, Lymph % (Auto) 12.2, Hard[place] % (Auto) 5.5, Eos % (Auto) 2.6, Baso % (Auto) 0.4, Neut # (Auto) 7.2, Lymph # (Auto) 1.1, [place] # (Auto) 0.5, Eos # (Auto) 0.2, Baso # (Auto) 0.0, ESR 46 H, D-Dimer 0.54 H, Sodium 137, Potassium 3.7, Chloride 100, Carbon Dioxide 25, Anion Gap 15.7 H, BUN 15, Creatinine 0.90, Estimated Creat Clear 73, Estimated GFR 66, Est GFR ( Amer) 80, Glucose 296 H, Calcium 9.1, Magnesium 1.9, Total Bilirubin 0.6, AST 40 H, ALT 33, Alkaline Phosphatase 82, Troponin I 0.02, C-Reactive Protein 27.4 H, NT-Pro-B Natriuret Pep 209 H, Total Protein 7.1, Albumin 4.0, Globulin 3.1, Albumin/Globulin Ratio 1.3, Lipase 101, Procalcitonin 0.068, Acetone Level None detected 11/03/24 18:02: VBG pH 7.40, VBG pCO2 40.7, VBG pO2 87.1 H, VBG HCO3 24.9, VBG Total CO2 26.1, VBG O2 Saturation 96.4 H, VBG Base Excess 0.1, VBG Lactic Acid 4.0 H 11/03/24 18:09: Urine Color Yellow, Urine Appearance Clear, Urine pH 7.0, Ur Specific [place] 1.015, Urine Protein 1+ A, Urine Glucose (UA) 3+, Urine Ketones Negative, Urine Blood Trace-i, Urine Nitrate Negative, Urine Bilirubin Negative, Urine Urobilinogen 0.2, Ur Leukocyte Esterase Negative, Urine RBC None, Urine WBC Occasional, Ur Squamous Epith Cells Occasional, Urine Bacteria Trace 11/03/24 19:34: Troponin I 0.03 11/03/24 20:36: POC Glucose 223 H 11/03/24 21:00: Chlamy pneumoniae PCR Not detected, Adenovirus (PCR) Not detected, B. pertussis DNA (PCR) Not detected, Coronavirus OC43 (PCR) Not detected, Coronavirus HKU1 (PCR) Not detected, Coronavirus 229E (PCR) Not detected, SARS-CoV-2 (PCR) Not detected, Coronavirus NL63 (PCR) Not detected, Human Metapneumovir PCR Not detected, Influenza A (H1) PCR Not detected, Influ A (H1N1/09) PCR Not detected, Influenza A (H3) PCR Not detected, Influenza Type A (PCR) Not detected, Influenza Type B (PCR) Not detected, M. pneumoniae (PCR) Not detected, Parainfluenza 1 (PCR) Not detected, Parainfluenza 2 (PCR) Not detected, Parainfluenza 3 (PCR) Not detected, Parainfluenza 4 (PCR) Not detected, RSV (PCR) Not detected, Entero/Rhino (PCR) Not detected 11/03/24 21:33: Lactate 2.8 H, Troponin I 0.04 H 11/04/24 05:24: POC Glucose 202 H 11/04/24 09:32: WBC 8.7, RBC 4.55, Hgb 12.4, Hct 38.7, MCV 85.1, MCH 27.3, MCHC 32.0, RDW 14.5, Plt Count 223, MPV 9.4, Neut % (Auto) 74.1, Lymph % (Auto) 14.9, [place] % (Auto) 6.6, Eos % (Auto) 3.1, Baso % (Auto) 0.5, Neut # (Auto) 6.4, Lymph # (Auto) 1.3, [place] # (Auto) 0.6, Eos # (Auto) 0.3, Baso # (Auto) 0.0, Sodium 139, Potassium 3.8, Chloride 104, Carbon Dioxide 29, Anion Gap 9.8, BUN 20 H D, Creatinine 1.00, Estimated Creat Clear 63, Estimated GFR 59, Est GFR ( Amer) 71, Glucose 223 H D, Calcium 9.1 I & O for Last 24 hours: Intake & Output 11/01/24 11/02/24 11/03/24 11/04/24 23:59 23:59 23:59 23:59 Intake Total 222 / 822 1160 / 1160 Output Total 1000 / 1300 900 / 900 Balance -778 / -478 260 / 260 Weight 158.757 kg 156.58 kg Intake & Output 11/01/24 11/02/24 11/03/24 11/04/24 23:59 23:59 23:59 23:59 Intake Total 222 / 822 920 / 920 Output Total 1000 / 1300 900 / 900 Balance -778 / -478 Weight 350 lb 345 lb 3.2 oz Constitutional Constitutional: no acute distress, morbidly obese and cooperative *Routine HEENT Exam Eye: Present PERRL *Routine Respiratory Exam Respiratory: Present CTA bilaterally; Absent accessory muscle use, wheezes or crackles *Routine Cardiovascular Exam Cardiovascular: Present RRR, Normal S1 and Normal S2; Absent murmur, gallop or rubs *Routine Abdominal Exam Abdominal: Present soft; Absent tenderness *Routine Extremities Exam Extremities: Present pulses intact; Absent cyanosis or edema Comments: ERLINDA PAEZ *Routine Skin Exam Skin: Present intact; Absent erythema or wounds *Routine Neurological Exam Neurological: Present alert and oriented X3 Routine Psychiatric Exam Psychiatric: Present cooperative Results Data Completed and Pending Labs on day of discharge: Labs from last 24 hours 11/04/24 11/04/24 11/03/24 09:32 05:24 21:33 WBC 8.7 RBC 4.55 Hgb 12.4 Hct 38.7 MCV 85.1 MCH 27.3 MCHC 32.0 RDW 14.5 Plt Count 223 MPV 9.4 Neut % (Auto) 74.1 Lymph % (Auto) 14.9 Harding % (Auto) 6.6 Eos % (Auto) 3.1 Baso % (Auto) 0.5 Neut # (Auto) 6.4 Lymph # (Auto) 1.3 [place] # (Auto) 0.6 Eos # (Auto) 0.3 Baso # (Auto) 0.0 ESR D-Dimer VBG pH VBG pCO2 VBG pO2 VBG HCO3 VBG Total CO2 VBG O2 Saturation VBG Base Excess VBG Lactic Acid Sodium 139 Potassium 3.8 Chloride 104 Carbon Dioxide 29 Anion Gap 9.8 BUN 20 H D Creatinine 1.00 Estimated Creat Clear 63 Estimated GFR 59 Est GFR ( Amer) 71 Glucose 223 H D POC Glucose 202 H Lactate 2.8 H Calcium 9.1 Magnesium Total Bilirubin AST ALT Alkaline Phosphatase Troponin I 0.03 0.04 H C-Reactive Protein NT-Pro-B Natriuret Pep Total Protein Albumin Globulin Albumin/Globulin Ratio Lipase Procalcitonin 0.079 TSH 2.80 Urine Color Urine Appearance Urine pH Ur Specific [place] Urine Protein Urine Glucose (UA) Urine Ketones Urine Blood Urine Nitrate Urine Bilirubin Urine Urobilinogen Ur Leukocyte Esterase Urine RBC Urine WBC Ur Squamous Epith Cells Urine Bacteria Acetone Level Chlamy pneumoniae PCR Adenovirus (PCR) B. pertussis DNA (PCR) Coronavirus OC43 (PCR) Coronavirus HKU1 (PCR) Coronavirus 229E (PCR) SARS-CoV-2 (PCR) Coronavirus NL63 (PCR) Human Metapneumovir PCR Influenza A (H1) PCR Influ A (H1N1/09) PCR Influenza A (H3) PCR Influenza Type A (PCR) Influenza Type B (PCR) M. pneumoniae (PCR) Parainfluenza 1 (PCR) Parainfluenza 2 (PCR) Parainfluenza 3 (PCR) Parainfluenza 4 (PCR) RSV (PCR) Entero/Rhino (PCR) 11/03/24 11/03/24 11/03/24 21:00 20:36 19:34 WBC RBC Hgb Hct MCV MCH MCHC RDW Plt Count MPV Neut % (Auto) Lymph % (Auto) [place] % (Auto) Eos % (Auto) Baso % (Auto) Neut # (Auto) Lymph # (Auto) [place] # (Auto) Eos # (Auto) Baso # (Auto) ESR D-Dimer VBG pH VBG pCO2 VBG pO2 VBG HCO3 VBG Total CO2 VBG O2 Saturation VBG Base Excess VBG Lactic Acid Sodium Potassium Chloride Carbon Dioxide Anion Gap BUN Creatinine Estimated Creat Clear Estimated GFR Est GFR ( Amer) Glucose POC Glucose 223 H Lactate Calcium Magnesium Total Bilirubin AST ALT Alkaline Phosphatase Troponin I 0.03 C-Reactive Protein NT-Pro-B Natriuret Pep Total Protein Albumin Globulin Albumin/Globulin Ratio Lipase Procalcitonin TSH Urine Color Urine Appearance Urine pH Ur Specific [place] Urine Protein Urine Glucose (UA) Urine Ketones Urine Blood Urine Nitrate Urine Bilirubin Urine Urobilinogen Ur Leukocyte Esterase Urine RBC Urine WBC Ur Squamous Epith Cells Urine Bacteria Acetone Level Chlamy pneumoniae PCR Not detected Adenovirus (PCR) Not detected B. pertussis DNA (PCR) Not detected Coronavirus OC43 (PCR) Not detected Coronavirus HKU1 (PCR) Not detected Coronavirus 229E (PCR) Not detected SARS-CoV-2 (PCR) Not detected Coronavirus NL63 (PCR) Not detected Human Metapneumovir PCR Not detected Influenza A (H1) PCR Not detected Influ A (H1N1/09) PCR Not detected Influenza A (H3) PCR Not detected Influenza Type A (PCR) Not detected Influenza Type B (PCR) Not detected M. pneumoniae (PCR) Not detected Parainfluenza 1 (PCR) Not detected Parainfluenza 2 (PCR) Not detected Parainfluenza 3 (PCR) Not detected Parainfluenza 4 (PCR) Not detected RSV (PCR) Not detected Entero/Rhino (PCR) Not detected 11/03/24 11/03/24 11/03/24 18:09 18:02 17:20 WBC 9.2 RBC 4.54 Hgb 12.1 L Hct 37.6 MCV 82.8 MCH 26.7 L MCHC 32.2 RDW 14.4 Plt Count 221 MPV 9.5 Neut % (Auto) 78.5 Lymph % (Auto) 12.2 [place] % (Auto) 5.5 Eos % (Auto) 2.6 Baso % (Auto) 0.4 Neut # (Auto) 7.2 Lymph # (Auto) 1.1 [place] # (Auto) 0.5 Eos # (Auto) 0.2 Baso # (Auto) 0.0 ESR 46 H D-Dimer 0.54 H VBG pH 7.40 VBG pCO2 40.7 VBG pO2 87.1 H VBG HCO3 24.9 VBG Total CO2 26.1 VBG O2 Saturation 96.4 H VBG Base Excess 0.1 VBG Lactic Acid 4.0 H Sodium 137 Potassium 3.7 Chloride 100 Carbon Dioxide 25 Anion Gap 15.7 H BUN 15 Creatinine 0.90 Estimated Creat Clear 73 Estimated GFR 66 Est GFR ( Amer) 80 Glucose 296 H POC Glucose Lactate Calcium 9.1 Magnesium 1.9 Total Bilirubin 0.6 AST 40 H ALT 33 Alkaline Phosphatase 82 Troponin I 0.02 C-Reactive Protein 27.4 H NT-Pro-B Natriuret Pep 209 H Total Protein 7.1 Albumin 4.0 Globulin 3.1 Albumin/Globulin Ratio 1.3 Lipase 101 Procalcitonin 0.068 TSH Urine Color Yellow Urine Appearance Clear Urine pH 7.0 Ur Specific [place] 1.015 Urine Protein 1+ A Urine Glucose (UA) 3+ Urine Ketones Negative Urine Blood Trace-i Urine Nitrate Negative Urine Bilirubin Negative Urine Urobilinogen 0.2 Ur Leukocyte Esterase Negative Urine RBC None Urine WBC Occasional Ur Squamous Epith Cells Occasional Urine Bacteria Trace Acetone Level None detected Chlamy pneumoniae PCR Adenovirus (PCR) B. pertussis DNA (PCR) Coronavirus OC43 (PCR) Coronavirus HKU1 (PCR) Coronavirus 229E (PCR) SARS-CoV-2 (PCR) Coronavirus NL63 (PCR) Human Metapneumovir PCR Influenza A (H1) PCR Influ A (H1N1/09) PCR Influenza A (H3) PCR Influenza Type A (PCR) Influenza Type B (PCR) M. pneumoniae (PCR) Parainfluenza 1 (PCR) Parainfluenza 2 (PCR) Parainfluenza 3 (PCR) Parainfluenza 4 (PCR) RSV (PCR) Entero/Rhino (PCR) DS: Diagnosis Discharge Diagnosis (1) Hypertensive emergency: Status: Acute Code(s): I16.1 - Hypertensive emergency (2) Community acquired pneumonia: Status: Acute Code(s): J18.9 - Pneumonia, unspecified organism (3) (HFpEF) heart failure with preserved ejection fraction: Status: Acute Code(s): I50.30 - Unspecified diastolic (congestive) heart failure Meds Home Medications and Allergies Home Medications ?Medication ?Instructions ?Recorded ?Confirmed ?Type apixaban 5 mg tablet 5 mg PO BID atrial fibrillat ion 30 06/01/24 11/03/24 Rx days #60 tabs desvenlafaxine succinate 50 mg 50 mg PO DAILY #90 tabs 06/01/24 11/03/24 Rx tablet,extended release 24 hr (Pristiq) diltiazem HCl 300 mg 300 mg PO DAILY #90 caps 01/1611/03/24 Rx capsule,extended release 24 hr losartan 100 mg tablet 100 mg PO DAILY #90 tabs 01/1611/03/24 Rx spironolactone 50 mg tablet 50 mg PO BID PRN Fluid #60 tabs 06/01/24 11/03/24 Rx trazodone 150 mg tablet 150 mg PO HS #90 tabs 11/03/24 Rx blood-glucose sensor (Dexcom G6 #1 ea 06/17/24 5 History Sensor device) blood-glucose transmitter (Dexcom #1 ea 06/17/2411/03 History G6 Transmitter device) mupirocin 2 % topical ointment 1 applic topical TID #2 2 grams 06/17/24 11/03/24 Rx hydralazine 100 mg tablet 100 mg PO TID #90 tabs 10/2611/03/24 Rx blood-glucose sensor (Dexcom G7 11/03/24 11/03/24 His tory Sensor device) insulin aspart U-100 100 unit/mL 100 unit SQ TITR 10/2311/03/24 History subcutaneous solution insulin pump cart,auto,BT,G6/7 11/03/24 11/03/24 Hist ory (Omnipod 5 G6-G7 Pods (Gen 5) subcutaneous cartridge) lancets 28 gauge (FreeStyle 11/03/24 11/03/24 History Lancets) atorvastatin 40 mg tablet 40 mg PO HS 30 days #30 tabs 11/04/24 Rx levofloxacin 750 mg tablet 750 mg PO DAILY #5 tabs Rx metoprolol succinate 25 mg 25 mg PO DAILY #30 tabs Rx tablet,extended release 24 hr semaglutide 0.25 mg or 0.5 mg (2 0.25 mg (0.368 mL) SQ WEEKLY #3 mL 11/04/24 Rx mg/3 mL) subcutaneous pen injector (Ozempic) New Prescriptions to Start Prescriptions: atorvastatin Estefani Thomson levofloxacin Estefnai Thomson metoprolol succinate Estefani Thomson semaglutide [Ozempic] Estefani Thomson Allergies Allergy/AdvReac Type Severity Reaction Status Date / Time No Known Allergies Allergy Verified 11/03/24 13:58 Discharge Plan Disposition Patient Disposition: Home, Self-Care Condition: Fair Follow up Plan Follow up with: Carlos Dean MD [Primary Care Provider, Family Practice] - Enter time for follow up Selvin Bain MD [Staff Physician, Cardiology] - Enter time for follow up Prescriptions/Medication Reconciliation: New atorvastatin 40 mg Tablet 40 mg PO HS 30 Days Qty: 30 0RF metoprolol succinate 25 mg tablet extended release 24 hr 25 mg PO DAILY Qty: 30 0RF Ozempic 0.25 mg or 0.5 mg (2 mg/3 mL) pen injector 0.25 mg SQ WEEKLY Qty: 3 0RF Rx Instructions: for 4 weeks levofloxacin 750 mg tablet 750 mg PO DAILY Qty: 5 0RF Continued diltiazem HCl 300 mg capsule,extended release 24hr 300 mg PO DAILY Qty: 90 3RF apixaban 5 mg tablet 5 mg PO BID 30 Days Qty: 60 10RF desvenlafaxine succinate [Pristiq] 50 mg tablet extended release 24 hr 50 mg PO DAILY Qty: 90 3RF losartan 100 mg tablet 100 mg PO DAILY Qty: 90 3RF spironolactone 50 mg tablet 50 mg PO BID PRN (Reason: Fluid) Qty: 60 5RF trazodone 150 mg tablet 150 mg PO HS Qty: 90 3RF hydralazine 100 mg tablet 100 mg PO TID Qty: 90 3RF (DME) [employer] G6 Sensor Device See Rx Instructions .ROUTE .MEDSUPPLY Qty: 1 Rx Instructions: As directed (DME) Dexcom G6 Transmitter Device See Rx Instructions .ROUTE .MEDSUPPLY Qty: 1 Rx Instructions: As directed mupirocin 2 % ointment 1 applic topical TID Qty: 22 5RF insulin aspart U-100 100 unit/mL solution 100 unit SQ TITR (DME) Dexcom G7 Sensor Device MISCELLANEOUS (DME) lancets [FreeStyle Lancets] 28 gauge misc MISCELLANEOUS (DME) Omnipod 5 G6-G7 Pods (Gen 5) Cartridge SQ Problem Reconciliation Problems Reviewed?: Yes Patient Discharge Instructions ACTIVITY: Continue current activity and Ambulate as tolerated DIET: diabetic diet Patient Instructions: Stop Light Pneumonia, Stop Light Heart Failure Print Language: Uzbek Providers Primary Care Provider: Carlos Dean Provider: Doug Cueto Attending Provider: Doug Cueto
--- NOTE | 2024-11-04 13:56 | HMH.OTEV ---
OT Inpatient Evaluation Rehab OT IP Evaluation Start: 11/03/24 20:48 Freq: ONCE Status: Active Protocol: Document 11/04/24 13:49 CHAVO (Rec: 11/04/24 13:56 [id number] Rehab OT IP Assessment Subjective History I don't know if I feel comfortable doing this. Pt oriented x 4 on arrival; pt agreeable to engage in therapy session. Pt admitted on 11/03/24 due to high blood pressure, PNA, and CHF. 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 Due to patient's symptoms, she presented to the emergency room for evaluation. While in the emergency room, patient's presenting blood pressure was 207/111, patient was found to be in intermittent atrial fibrillation with rapid ventricular response, and plain films of the chest was consistent with pulmonary edema and possible superimposed pneumonia. Due to patient's symptoms, patient is being admitted for further management. 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 pt reported they primarily use w/c for FM as L LE has been in pain with stabbing and buckling. Pt reported they use a sliding board for transfers. Pt reports mainly ind in ADL and transfer with there to assist when needed. pt reports has to place SB under pt due to pt's hands weak and hurting. pt reported they have a shower chair, but needs a wider one for better stability and uses bedside commode in shower as it is wider. pt reported they have a ramp. pt presents with blister on L index finger and reports they have been nauseous and not feeling well. Pt reported they have just started outpt rehab. pt denied completing FM task due to not only feeling sick this AM, but due to extreme fear of falling and preferred to have larger people assist her. Therapy reported and educated pt that they would be back in PM to attempt again, however therapy would provide assist if needed and would provide best care possible to ensure pt's safety first. Objective Patient Orientation Person,Place,Birthday,Month Right Upper WFL Extremity Gross ROM Left Upper Extremity WFL Gross ROM Bed Mobility bed mobility-scooting,bed mobility - supine/sit Assist Level Contact Guard/Hand Hold Transfer Training Sit/Stand/Step Transfer Assist Level Minimal x 2 (25% assist) Lower Body Dressing Maximum Assistance Ability Rehab OT IP prob,goals,plan Problems Date of Evaluation: 11/04/24 OT IP Problems Bed Mobility,Transfers,Balance,Self care,Safety Rehab Potential Rehab Potential Good Equipment Needs Assistive Devices Rolling / Wheeled Walker Plan OT intervention Plan Bed Mobility,Transfers,Balance,Self care,Safety, Therapeutic Exercise OT Plan Frequency Daily Duration LOS Discharge Goals Bed Mobility Ability Standby Assistance Sit to Stand Chair Minimal x 1 (25% assist) Transfer Ability Chair Transfer Minimal x 1 (25% assist) Ability Chair Transfer Stand Step Pivot Technique Chair Transfer Rolling Walker,Transfer Belt Assistive Devices Lower Body Dressing Moderate Assistance Ability Upper Body Dressing Standby Assistance Ability Performing Toilet Moderate Assistance Hygiene Ability Overall Commode/ Moderate Assistance Toilet Transfer Ability Commode/Toilet Stand Step Pivot Transfer Technique Discharge Plan OT Discharge Plan Pt will continue to be seen for OT services while at [facility]. Pt can return home with husbands assistance and outpatient therapy services once she is medically stable per physician. Continued skilled therapy is important in order for patient to improve strength, safety, endurance, ADL independence, and functional transfers to reach PLOF. Eval Complexity Eval Charge Codes 14521 - Moderate Complexity PHYSICIAN CERTIFICATION: I certify the specified therapy services for Eliz Pack Stien are required, authorized, and reviewed every 30 days.
--- NOTE | 2024-11-04 15:30 | SW/DCPLANNER ---
Addendum entered by Shahnaz Mclean 11/05/24 08:44: [facility] is able to accept patient. [facility] Original Note: Spoke with patient regarding home health services once she is medically stable and ready for discharge. Patient stated that she is interested and that [facility]. I told patient that i will send her information to [facility] and will update when i hear back. Bc Mancer[facility]
--- NOTE | 2024-11-04 15:59 | HMH.PTEV ---
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 Due to patient's symptoms, she presented to the emergency room for evaluation. While in the emergency room, patient's presenting blood pressure was 207/111, patient was found to be in intermittent atrial fibrillation with rapid ventricular response, and plain films of the chest was consistent with pulmonary edema and possible superimposed pneumonia. Due to patient's symptoms, patient is being admitted for further management. 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 Subjective Subjective Pt reports no c/o pain, but severe anxiety at baseline, especially with mobility training. She does agree to stand this pm. [facility] How much help from another person do you currently need... Turning from your None back to your side while in a flat bed without using bedrails? Moving from lying on None back to sitting on the side of a flat bed without using bedrails? Moving to and from a A little bed to a chair ( including a wheelchair)? Standing up from a None chair using your arms? (e.g., wheelchair, bedside chair) Walking in hospital Total room? Climbing 3-5 steps Total with a railing? Mobility Score 17 Mobility Level [facility] Mobility 5 Stand (1 or more minutes) Mobility Calculator Rehab PT IP Eval Objective Appearance Patient Behavior Appropriate Patient Orientation Person,Place,Time Difficulty following none instructions Speech Pattern Clear Ambulation Patient Able to No Ambulate Balance Ability to Arise Able, uses arms to help Sitting Balance Steady, safe Standing Balance Steady, wide stance Dynamic Sitting Good Balance Ability Dynamic Standing Poor Balance Ability Transfers Bed Transfer Ability Supervision/Stand by Chair Transfer Contact Guard/Hand Hold Ability Sit to Stand Bed Minimal x 1 (25% assist) Transfer Ability Sit to Stand Chair Minimal x 1 (25% assist) Transfer Ability Rehab PT IP prob,goals,plan Problems Date of Evaluation: 11/04/24 Discharge Plan PT Discharge Plan Recommend Home Health therapy services after pt returns home. She is appropriate to return home with family assist at this time. Eval Complexity Eval Charge Codes 80872 - High Complexity PHYSICIAN CERTIFICATION: I certify the specified therapy services for Eilzsa Valentín Maldonado are required, authorized, and reviewed every 30 days.
--- NOTE | 2024-11-05 10:15 | SW/DCPLANNER ---
Spoke with patient on the phone. Patient stated that she still doesnt feel well. Patient stated that is aware of her upcoming appointments. Patient stated that she was able to get her new medicine picked up from clinic pharmacy. Patient stated that she has no concerns or questions at this time. I informed the patient that home health was able to accept her and will be getting in contact with her. Bc Mancer[facility]
[2024-11-05 16:09] LABS: POC Glucose,Bedside 196 (70-110)
== END 2024-11-04 16:52 | disposition home health service (06) ==
LOC: ER 16:07 → 2ND 18:43
PROVIDERS: Nurse Practitioner; Nurse Practitioner Family; Physician Assistant; Admitting Provider Student in an Organized Health Care Education/Training Program; Emergency Provider Student in an Organized Health Care Education/Training Program; PCP Family Medicine; Visit Provider Student in an Organized Health Care Education/Training Program
DX: I11.0 Hypertensive heart disease with heart failure (principal); I16.1 Hypertensive emergency; I50.33 Acute on chronic diastolic (congestive) heart failure; E11.43 Type 2 diabetes mellitus with diabetic autonomic (poly)neuropathy; J18.9 Pneumonia, unspecified organism; E66.01 Morbid (severe) obesity due to excess calories; R79.89 Other specified abnormal findings of blood chemistry; E87.20 Acidosis, unspecified; E11.65 Type 2 diabetes mellitus with hyperglycemia; I48.0 Paroxysmal atrial fibrillation; I25.10 Atherosclerotic heart disease of native coronary artery without angina pectoris; K21.9 Gastro-esophageal reflux disease without esophagitis; I44.4 Left anterior fascicular block; E78.5 Hyperlipidemia, unspecified; F39 Unspecified mood [affective] disorder; K31.84 Gastroparesis; Z82.49 Family history of ischemic heart disease and other diseases of the circulatory system; Z68.43 Body mass index [BMI] 50.0-59.9, adult; Z89.432 Acquired absence of left foot; Z89.422 Acquired absence of other left toe(s); Z89.511 Acquired absence of right leg below knee; Z87.891 Personal history of nicotine dependence; Z96.41 Presence of insulin pump (external) (internal); Z79.01 Long term (current) use of anticoagulants; Z79.899 Other long term (current) drug therapy; Z79.4 Long term (current) use of insulin
CPT/HCPCS: 0223U; 36415; 71045; 80048; 80053; 81001; 82009; 82803; 82962; 83605; 83690; 83735; 83880; 84145; 84443; 84484; 85025; 85378; 85651; 86140; 87040; 87070; 87205; 89220; 93005; 93306; 96374; 96375; 96376; 97163; 97166; 99285; G0378; J0456; J0696; J1938; J2405; J7050; Q9957

== ENCOUNTER 2024-12-07 03:51 | Inpatient (IN) | payer MEDICAID, SELFPAY ==
--- OUTSIDE RECORDS SUMMARY | 2022-10-10 05:00 | XMS_ITS | Encounter Summary ---
Author Organization [place] [address] Care Team Providers Care Aircraft Assembler Name Role Phone Carlos Dean MD Primary Care Provider [phone] Encounter Details Date Type Department Care Team (Latest Contact Info) Description 10/10/2022 5:00 AM EDT Hospital Encounter [facility] Referral Lab 1 [place] [address] Encounter for general adult medical [...] - 40.0 mg/dL 10/10/2022 8:46 AM EDT [facility] Blood VENOUS BLOOD / Unknown Venipuncture / Unknown 10/10/2022 5:38 AM EDT 10/10/2022 6:08 AM EDT us Unknown Provider CHEMISTRY ORDERABLES Final Resu lt [facility] [address] [place] [address] , [place] [address] documented in this encounter Visit Diagnoses Diagnosis Encounter for general adult medical examination without abnormal findings Routine general medical examination at a health care facility documented in this encounter Care Teams Aircraft Assembler Relationship Specialty Start Date End Date Carlos Dean MD PCP - General 11/08/09 documented as of this encounter
--- OUTSIDE RECORDS SUMMARY | 2022-10-10 05:00 | XMS_ITS | Encounter Summary ---
Author Organization [place] [address] Care Team Providers Care Pastoral Ministries Professor Name Role Phone Carlos Dean MD Primary Care Provider [phone] Encounter Details Date Type Department Care Team (Latest Contact Info) Description 10/10/2022 5:00 AM EDT Hospital Encounter [facility] Referral Lab 1 [place] [address] Encounter for general adult medical [...] 10/10/2022 6:27 AM EDT [facility] MPV 9.0 8.8 - 12.5 fL 10/10/2022 6:27 AM EDT [facility] Neut Percent 69.7 % 10/10/2022 6:27 AM EDT [facility] Comment:Neutrophils equals s egs plus bands Imm Gran% 2.6 % 10/10/2022 6:27 AM EDT [facility] Comment:Automated count of m etamyelocytes, myelocytes and promyelocytes. IG >1% represents a left shift and provides an early indication of an infection or inflammatory process. Lymph Percent 17.1 % 10/10/2022 6:27 AM EDT [facility] [place] Percent 6.6 % 10/10/2022 6:27 AM EDT [facility] Eos Percent 3.5 % 10/10/2022 6:27 AM EDT [facility] Baso Percent 0.5 % 10/10/2022 6:27 AM EDT [facility] Neut # 8.2(H) 1.6 - 6.1 x10(3)/[facility] 10/10/2022 6:27 AM EDT [facility] Comment:Neutrophils equals s egs plus bands IMMGRAN# 0.3(H) 0.0 - 0.1 x10(3)/[facility] 10/10/2022 6:27 AM EDT [facility] Comment:Automated count of m etamyelocytes, myelocytes and promyelocytes. An absolute IG <0.1 is reported as 0.0. Lymph # 2.0 1.2 - 3.9 x10(3)/[facility] 10/10/2022 6:27 AM EDT [facility] [place] # 0.8 0.3 - 0.9 x10(3)/[facility] 10/10/2022 6:27 AM EDT [facility] Eos# 0.4 0.0 - 0.5 x10(3)/[facility] 10/10/2022 6:27 AM EDT [facility] Baso # 0.1 0.0 - 0.1 x10(3)/[facility] 10/10/2022 6:27 AM EDT [facility] Blood VENOUS BLOOD / Unknown Venipuncture / Unknown 10/10/2022 5:38 AM EDT 10/10/2022 6:08 AM EDT us Unknown Provider HEMATOLOGY ORDERABLES Final Res ult [facility] [employer] [address] [facility] , [place] [address] documented in this encounter Visit Diagnoses Diagnosis Encounter for general adult medical examination without abnormal findings Routine general medical examination at a health care facility documented in this encounter Care Teams Pastoral Ministries Professor Relationship Specialty Start Date End Date Carlos Dean MD PCP - General 11/08/09 documented as of this encounter
--- OUTSIDE RECORDS SUMMARY | 2022-10-11 05:00 | XMS_ITS | Encounter Summary ---
Author Organization [place] [address] Care Team Providers Care Metallic Yarn Slitting Machine Operator Name Role Phone Carlos Dean MD Primary Care Provider [phone] Encounter Details Date Type Department Care Team (Latest Contact Info) Description 10/11/2022 5:00 AM EDT Hospital Encounter [facility] Referral Lab 1 [place] [address] Encounter for general adult medical [...] METABOLIC PANEL (10/11/2022 5:28 AM EDT) Pathologist [facility] Sodium 141 136 - 145 mmol/L 10/11/2022 [...] mL/min/1.7 3 m2 10/11/2022 8:18 AM EDT [facility] [employer] [facility] Comment:Estimated GFR was ca lculated using the CKD-EPIcr (2020) equation refit without race. The equation is recommended by the National Kidney Foundation - [place]i Society of Nephrology Task Force. Blood VENOUS BLOOD / Unknown Venipuncture / Unknown 10/11/2022 5:28 AM EDT 10/11/2022 6:57 AM EDT us Unknown Provider CHEMISTRY ORDERABLES Final Resu lt [email or web address] 1 [facility] , [place] [address] [facility] [address] [place], [place] [id number] documented in this encounter Visit Diagnoses Diagnosis Encounter for general adult medical examination without abnormal findings Routine general medical examination at a health care facility documented in this encounter Care Teams Metallic Yarn Slitting Machine Operator Relationship Specialty Start Date End Date Carlos Dean MD PCP - General 11/08/09 documented as of this encounter
--- OUTSIDE RECORDS SUMMARY | 2022-10-12 05:00 | XMS_ITS | Encounter Summary ---
Author Organization [place] [address] Care Team Providers Care Motion Picture Critic Name Role Phone Carlos Dean MD Primary Care Provider [phone] Encounter Details Date Type Department Care Team (Latest Contact Info) Description 10/12/2022 5:00 AM EDT Hospital Encounter [facility] Referral Lab 1 [place] [address] Encounter for general adult medical [...] COMPREHENSIVE METABOLIC PANEL (10/12/2022 5:46 AM EDT) Pathologist [facility] Sodium 139 136 - 145 mmol/L 10/12/2022 [...] 10/12/2022 8:02 AM EDT [facility] Albumin 3.3(L) 3.5 - 5.2 gm/dL 10/12/2022 8:02 AM EDT [facility] Total Protein 6.7 6.4 - 8.3 gm/dL 10/12/2022 8:02 AM EDT [facility] Bili Total 0.4 0.2 - 1.3 mg/dL 10/12/2022 8:02 AM EDT [facility] ALT 15 <=41 U/L 10/12/2022 8:02 AM EDT [facility] AST 22 <=40 U/L 10/12/2022 8:02 AM EDT [facility] Alk Phos 69 36 - 123 U/L 10/12/2022 8:02 AM EDT [facility] eGFR (CKD-EPIcr 2020) 41(L) >=60 mL/min/1.7 3 m2 10/12/2022 8:02 AM EDT [facility] Comment:Estimated GFR was ca lculated using the CKD-EPIcr (2020) equation refit without race. The equation is recommended by the National Kidney Foundation - [place] Society of Nephrology Task Force. Blood VENOUS BLOOD / Unknown Venipuncture / Unknown 10/12/2022 5:46 AM EDT 10/12/2022 6:59 AM EDT us Unknown Provider CHEMISTRY ORDERABLES Final Resu lt [facility] 1 [facility] , [place] [address] [facility] [address] [place] [address] documented in this encounter Visit Diagnoses Diagnosis Encounter for general adult medical examination without abnormal findings Routine general medical examination at a health care facility documented in this encounter Care Teams Motion Picture Critic Relationship Specialty Start Date End Date Carlos Dean MD PCP - General 11/08/09 documented as of this encounter
--- OUTSIDE RECORDS SUMMARY | 2022-10-12 09:37 | XMS_ITS | Encounter Summary ---
Author Organization [place] [address] Care Team Providers Care Plasterer Stucco Name Role Phone Carlos Dean MD Primary Care Provider [phone] Encounter Details Date Type Department Care Team (Latest Contact Info) Description 10/12/2022 9:37 AM EDT Hospital Encounter [facility] Referral Lab 1 [place] [address] Encounter for general adult medical [...] Date Author No 04/05/2015 1:44 PM Robert Carranaz RN documented in this encounter Plan of [...] facility documented in this encounter Care Teams Plasterer Stucco Relationship Specialty Start Date End Date Carlos Dean MD PCP - General 11/08/09 documented as of this encounter
--- OUTSIDE RECORDS SUMMARY | 2022-10-12 09:38 | XMS_ITS | Encounter Summary ---
Author Organization [place] [address] Care Team Providers Care Implementation Technician Name Role Phone Carlos Dean MD Primary Care Provider [phone] Encounter Details Date Type Department Care Team (Latest Contact Info) Description 10/12/2022 9:38 AM EDT Hospital Encounter [facility] Referral Lab 1 [place] [address] Encounter for general adult medical [...] facility documented in this encounter Care Teams Implementation Technician Relationship Specialty Start Date End Date Carlos Dean MD PCP - General 11/08/09 documented as of this encounter
--- OUTSIDE RECORDS SUMMARY | 2022-10-15 05:00 | XMS_ITS | Encounter Summary ---
Author Organization [place] [address] Care Team Providers Care Vascular Physician Name Role Phone Carlos Dean MD Primary Care Provider [phone] Encounter Details Date Type Department Care Team (Latest Contact Info) Description 10/15/2022 5:00 AM EDT Hospital Encounter [facility] Referral Lab 1 [place] [address] Encounter for general adult medical [...] BASIC METABOLIC PANEL (10/15/2022 9:28 AM EDT) [facility] Sodium 140 136 - 145 [...] mL/min/1.7 3 m2 10/15/2022 10:14 AM EDT [facility] Comment:Estimated GFR was ca lculated using the CKD-EPIcr (2020) equation refit without race. The equation is recommended by the National Kidney Foundation - [place] [employer] of Nephrology Task Force. Blood VENOUS BLOOD / Unknown Venipuncture / Unknown 10/15/2022 9:28 AM EDT 10/15/2022 9:28 AM EDT us Unknown Provider CHEMISTRY ORDERABLES Final Resu lt [facility] [employer] [facility] [address] [facility] , [address] [place] [id number] [facility] [address] [place], [place] [id number] documented in this encounter Visit Diagnoses Diagnosis Encounter for general adult medical examination without abnormal findings Routine general medical examination at a health care facility documented in this encounter Care Teams Vascular Physician Relationship Specialty Start Date End Date Carlos Dean MD PCP - General 11/08/09 documented as of this encounter
--- OUTSIDE RECORDS SUMMARY | 2022-10-15 05:00 | XMS_ITS | Encounter Summary ---
Author Organization [place] [address] Care Team Providers Care Nicker And Breaker Name Role Phone Carlos Dean MD Primary Care Provider Encounter Details Date Type Department Care Team (Latest Contact Info) Description 10/15/2022 5:00 AM EDT Hospital Encounter [facility] Referral Lab 1 [place] [address] Encounter for general adult medical [...] 10/15/2022 9:55 AM EDT [facility] Platelet 409(H) 155 - 369 x10(3)/mcL 10/15/2022 9:55 AM EDT [facility] MPV 9.7 8.8 - 12.5 fL 10/15/2022 9:55 AM EDT [facility] Neut Percent 64.2 % 10/15/2022 9:55 AM EDT [facility] Comment:Neutrophils equals s egs plus bands Imm Gran% 0.8 % 10/15/2022 9:55 AM EDT [facility] Comment:Automated count of m etamyelocytes, myelocytes and promyelocytes. Lymph Percent 23.2 % 10/15/2022 9:55 AM EDT [facility] [place] Percent 5.9 % 10/15/2022 9:55 AM EDT [facility] Eos Percent 5.4 % 10/15/2022 9:55 AM EDT [facility] Baso Percent 0.5 % 10/15/2022 9:55 AM EDT [facility] Neut # 6.3(H) 1.6 - 6.1 x10(3)/[facility] 10/15/2022 9:55 AM EDT [facility] Comment:Neutrophils equals s egs plus bands IMMGRAN# 0.1 0.0 - 0.1 x10(3)/[facility] 10/15/2022 9:55 AM EDT [facility] Comment:Automated count of m etamyelocytes, myelocytes and promyelocytes. An absolute IG <0.1 is reported as 0.0. Lymph # 2.3 1.2 - 3.9 x10(3)/[facility]L 10/15/2022 9:55 AM EDT [facility] [place] # 0.6 0.3 - 0.9 x10(3)/[facility] 10/15/2022 9:55 AM EDT [facility] Eos# 0.5 0.0 - 0.5 x10(3)/[facility] 10/15/2022 9:55 AM EDT [facility] Baso # 0.1 0.0 - 0.1 x10(3)/[facility] 10/15/2022 9:55 AM EDT [facility] Blood VENOUS BLOOD / Unknown Venipuncture / Unknown 10/15/2022 9:28 AM EDT 10/15/2022 9:28 AM EDT us Unknown Provider HEMATOLOGY ORDERABLES Final Res ult [facility] [employer] 1 [facility] , [place] [address] documented in this encounter Visit Diagnoses Diagnosis Encounter for general adult medical examination without abnormal findings Routine general medical examination at a health care facility documented in this encounter Care Teams Nicker And Breaker Relationship Specialty Start Date End Date Carlos Dean MD PCP - General 11/08/09 documented as of this encounter
--- OUTSIDE RECORDS SUMMARY | 2022-10-17 05:00 | XMS_ITS | Encounter Summary ---
Author Organization [place] [address] Care Team Providers Care Asbestos Worker Name Role Phone Carlos Dean MD Primary Care Provider [phone] Encounter Details Date Type Department Care Team (Latest Contact Info) Description 10/17/2022 5:00 AM EDT Hospital Encounter [facility] Referral Lab 1 [place] [address] Encounter for general adult medical [...] facility documented in this encounter Care Teams Asbestos Worker Relationship Specialty Start Date End Date Carlos Dean MD PCP - General 11/08/09 documented as of this encounter
--- OUTSIDE RECORDS SUMMARY | 2022-10-17 05:00 | XMS_ITS | Encounter Summary ---
Author Organization [place] [address] Care Team Providers Care Watch Leader Name Role Phone Carlos Dean MD Primary Care Provider [phone] Encounter Details Date Type Department Care Team (Latest Contact Info) Description 10/17/2022 5:00 AM EDT Hospital Encounter [facility] Referral Lab 1 [place] [address] Encounter for general adult medical [...] facility documented in this encounter Care Teams Watch Leader Relationship Specialty Start Date End Date Carlos Dean MD PCP - General 11/08/09 documented as of this encounter
--- OUTSIDE RECORDS SUMMARY | 2022-10-18 05:00 | XMS_ITS | Encounter Summary ---
Author Organization [place] [address] Care Team Providers Care Interdisciplinary Professor Name Role Phone Carlos Dean MD Primary Care Provider [phone] Encounter Details Date Type Department Care Team (Latest Contact Info) Description 10/18/2022 5:00 AM EDT Hospital Encounter [facility] Referral Lab 1 [place] [address] Encounter for general adult medical [...] METABOLIC PANEL (10/18/2022 4:45 AM EDT) Pathologist [facility] Sodium 142 136 - 145 mmol/L 10/18/2022 [...] mL/min/1.7 3 m2 10/18/2022 6:53 AM EDT [facility] [employer] [facility] Comment:Estimated GFR was ca lculated using the CKD-EPIcr (2020) equation refit without race. The equation is recommended by the National Kidney Foundation - [place] Society of Nephrology Task Force. Blood VENOUS BLOOD / Unknown Venipuncture / Unknown 10/18/2022 4:45 AM EDT 10/18/2022 6:15 AM EDT us Unknown Provider CHEMISTRY ORDERABLES Final Resu lt [place] 1 [facility] , [place] [address] [id number] [address] [place], [place] [id number] documented in this encounter Visit Diagnoses Diagnosis Encounter for general adult medical examination without abnormal findings Routine general medical examination at a health care facility documented in this encounter Care Teams Interdisciplinary Professor Relationship Specialty Start Date End Date Carlos Dean MD PCP - General 11/08/09 documented as of this encounter
--- OUTSIDE RECORDS SUMMARY | 2022-10-22 13:54 | XMS_ITS | Encounter Summary ---
Author Organization [place] [address] Care Team Providers Care Fine Chemicals Operator Name Role Phone Carlos Dean MD Primary Care Provider [phone] Encounter Details Date Type Department Care Team (Latest Contact Info) Description 10/22/2022 1:54 PM EDT Hospital Encounter [facility] Referral Lab 1 [place] [address] Encounter for general adult medical [...] on file documented as of this encounter Visit Diagnoses Diagnosis Encounter for general adult medical examination without abnormal findings Routine general medical examination at a health care facility documented in this encounter Care Teams Fine Chemicals Operator Relationship Specialty Start Date End Date Carlos Dean MD PCP - General 11/08/09 documented as of this encounter
--- OUTSIDE RECORDS SUMMARY | 2022-10-22 13:54 | XMS_ITS | Encounter Summary ---
Author Organization [place] [address] Care Team Providers Care Margin Clerk Name Role Phone Carlos Dean MD Primary Care Provider [phone] Encounter Details Date Type Department Care Team (Latest Contact Info) Description 10/22/2022 1:54 PM EDT Hospital Encounter [facility] Referral Lab 1 [place] [address] Encounter for general adult medical [...] facility documented in this encounter Care Teams Margin Clerk Relationship Specialty Start Date End Date Carlos Dean MD PCP - General 11/08/09 documented as of this encounter
--- OUTSIDE RECORDS SUMMARY | 2023-12-04 05:00 | XMS_ITS | Encounter Summary ---
Author Organization [place] [address] Care Team Providers Care Irish Moss Bleacher Name Role Phone Carlos Dean MD Primary Care Provider [phone] Encounter Details Date Type Department Care Team (Latest Contact Info) Description 12/04/2023 5:00 AM EDT Hospital Encounter [facility] Referral Lab 1 [place] [address] Tang Catherine MD [address] [place] [address] [place] [phone] Encounter for general adult medical examination [...] COMPREHENSIVE METABOLIC PANEL (12/04/2023 4:00 AM EDT) [facility] Sodium 140 136 - 145 mmol/L 12/04/2023 [...] 12/04/2023 8:10 AM EDT [facility] Albumin 3.6 3.5 - 5.2 gm/dL 12/04/2023 8:10 AM EDT [facility] Total Protein 5.9(L) 6.4 - 8.3 gm/dL 12/04/2023 8:10 AM EDT [facility] Bili Total 0.5 0.2 - 1.3 mg/dL 12/04/2023 8:10 AM EDT [facility] ALT 18 <=41 U/L 12/04/2023 8:10 AM EDT [facility] AST 17 <=40 U/L 12/04/2023 8:10 AM EDT [facility] Alk Phos 74 36 - 123 U/L 12/04/2023 8:10 AM EDT [facility] eGFR (CKD-EPIcr 2020) 74 >=60 mL/min/1.7 3 m2 12/04/2023 8:10 AM EDT [facility] Comment:Estimated GFR was ca lculated using the CKD-EPIcr (2020) equation refit without race. The equation is recommended by the National Kidney Foundation - [place] Society of Nephrology Task Force. Blood VENOUS BLOOD / Unknown Venipuncture / Unknown 12/04/2023 4:00 AM EDT 12/04/2023 6:56 AM EDT us Tang Catherine MD CHEMISTRY ORDERABLES Final Resu lt [facility] [address] [facility] , [place] [address] [facility] [address] [place] [address] documented in this encounter Visit Diagnoses Diagnosis Encounter for general adult medical examination without abnormal findings Routine general medical examination at a health care facility documented in this encounter Care Teams Irish Moss Bleacher Relationship Specialty Start Date End Date Carlos Dean MD PCP - General 11/08/09 documented as of this encounter
--- OUTSIDE RECORDS SUMMARY | 2023-12-04 05:00 | XMS_ITS | Encounter Summary ---
Author Organization [place] [address] Care Team Providers Care Evp And Chief Operating Officer Name Role Phone Carlos Dean MD Primary Care Provider Encounter Details Date Type Department Care Team (Latest Contact Info) Description 12/04/2023 5:00 AM EDT Hospital Encounter [facility] Referral Lab 1 [place] [address] Tang Catherine MD [address] [place] [address] [place] [phone] Encounter for general adult medical examination [...] (ABNORMAL) PREALBUMIN (12/04/2023 4:00 AM EDT) Pathologist [facility] Prealbumin 15.9(L) 20.0 - 40.0 mg/dL 12/04/2023 7:54 AM EDT [facility] Blood VENOUS BLOOD / Unknown Venipuncture / Unknown 12/04/2023 4:00 AM EDT 12/04/2023 6:56 AM EDT Tang Catherine MD CHEMISTRY ORDERABLES Final Resu lt [facility] 1 [facility] , [place] [address] documented in this encounter Visit Diagnoses Diagnosis Encounter for general adult medical examination without abnormal findings Routine general medical examination at a health care facility documented in this encounter Care Teams Evp And Chief Operating Officer Relationship Specialty Start Date End Date Carlos Dean MD PCP - General 11/08/09 documented as of this encounter
[2024-12-07] VITALS (15 sets, daily range): BP systolic 107–235; BP diastolic 55–154; PULSE 61–162; RESP 14–22; TEMP 36.6–36.9; O2SAT 95–96; BMI 62.6; BMI 54.9
--- NOTE | 2024-12-07 04:00 | XR_ITS ---
PROCEDURE INFORMATION: Exam: XR Chest Exam date and time: 12/07/2024 4:23 AM Age: 49 years old Clinical indication: Pain; Chest pressure; Additional info: Chest pressure SOA TECHNIQUE: Imaging protocol: Radiologic exam of the chest. Views: 1 view. COMPARISON: CR XR CHEST PORTABLE 11/03/2024 4:28 PM FINDINGS: Lungs: Unremarkable. No consolidation. Pleural spaces: Unremarkable. No pleural effusion. No pneumothorax. Heart/Mediastinum: Unremarkable. No cardiomegaly. Bones/joints: Unremarkable. IMPRESSION: No acute findings.
--- NOTE | 2024-12-07 04:00 | ECG_ITS ---
APPROVED REPORT Exam: Resting ECG HR:176 bpm ECG Measurements Heart Rate 176 AXES QRSd 106 QRS -55 QT 266 T 75 QTc 360 Conclusion ATRIAL FIBRILLATION WITH RAPID VENTRICULAR RESPONSE LEFT ANTERIOR FASCICULAR BLOCK [QRS AXIS <= -45, QR IN I, RS IN II] POSSIBLE ANTERIOR MYOCARDIAL INFARCTION , PROBABLY OLD [30 ms Q WAVE IN V3/V4, OR R < 0.2 mV IN V4] No STEMI Electronically signed by : TREMAINE MACIAS, 12/11/2024 05:01:38
--- OUTSIDE RECORDS SUMMARY | 2024-12-07 04:08 | XMS_ITS | Clinical Summary ---
Author Organization Healthcare Address [address] [place] [address] Care Team Providers Care Production Officer Name Role Phone Carlos Dean MD Primary Care Provider [phone] Allergies No known active allergies Medications hydrALAZINE [...] week. Active ergocalciferol (Vitamin D-2) 1.25 MG (62585 UT) capsule Take 50,000 Units by mouth [...] Administration Dates Next Due Moderna COVID-19 Vaccine (Landfill Grader) 12+ years ,07/20/2020 Family History Medical History [...] Date Last Done Comments [facility]-Depression Screening 1974 [facility]-Infant/Child/Adol SDOH Screenings 1974 [facility]- SDOH Screenings 1992 [facility]-Adult SDOH Screenings 1992 [facility]-DTaP,Tdap,and Td Vaccine s (1 - Tdap) 1993 [facility]-Hepatitis B Vaccines (1 of 3 - 19+ 3-dose series) 1993 [facility]-Pap Smear 06/27/1995 [facility]-Cervical Cancer Screening 2004 [facility]-HPV/Cotest 2004 CT Colonography 06/27/2019 Colonoscopy 06/27/2019 FIT-DNA 06/27/2019 FIT 06/27/2019 FOBT 06/27/2019 Sigmoidoscopy 06/27/2019 [facility]-Colorectal Cancer Screening 06/27/2019 [facility]-Pneumococcal Vaccine: 50 + Years (1 of 1 - PCV) 2024 [facility]-Zoster Vaccines (1 of 2) 2024 [facility]-AMFTB-80 Vaccine (3 - season) 2024 08/17/2020, 07/20/2020 [facility]-Influenza Vaccine (#1) 2024 HPV Vaccines Aged [...] to complete this topic Insurance Care Teams Production Officer Relationship Specialty Start Date End Date Carlos Dean MD PCP - General 08/05/20
--- OUTSIDE RECORDS SUMMARY | 2024-12-07 04:08 | XMS_ITS | Clinical Summary ---
Author Organization [facility] Address [address] [place] [id number] Care Team Providers Care Dietitian Assistant Name Role Phone Carlos Dean MD Primary Care Provider [phone] Allergies No known active allergies Medications albuterol [...] times daily (with meals). Active folic acid/multivit,ir on,land examiner (CENTRUM PO) Take by mouth. Ac [...] 10 Years) 1992 Cervical Cancer Screening 06/27/1995 Depression Screening 03/25/2024 Breast Cancer Screening 2024 Pneumococcal Vaccine: 50+ Years (1 of 1 - PCV) 025 Zoster-RZV(Shingrix) (1 of 2) 2024 COVID-19 Vaccine ( - season) 2024 Influenza Vaccination (#1) 2024 Insurance Care Teams Dietitian Assistant Relationship Specialty [place] [address] [place] [address] PCP - General Family Medicine 04/01/18
[2024-12-07] MEDS: ASPIRIN 81MG CHEWABLE TABLET 324 MG PO (04:09)
[2024-12-07] MEDS: ONDANSETRON 4MG/2ML VIAL 4 MG IV (04:09)
[2024-12-07] MEDS: NITROGLYCERIN 0.4MG SL TABLET 0.4 MG SL (04:09)
--- NOTE | 2024-12-07 04:11 | [facility].EDCP ---
Discharge Plan Disposition Patient Disposition: Admitted Condition: Fair Prescriptions Prescriptions: No Action diltiazem HCl 300 mg capsule,extended release 24hr 300 mg PO DAILY Qty: 90 3RF apixaban 5 mg tablet 5 mg PO BID 30 Days Qty: 60 10RF desvenlafaxine succinate [Pristiq] 50 mg tablet extended release 24 hr 50 mg PO DAILY Qty: 90 3RF losartan 100 mg tablet 100 mg PO DAILY Qty: 90 3RF trazodone 150 mg tablet 150 mg PO HS Qty: 90 3RF hydralazine 100 mg tablet 100 mg PO TID Qty: 90 3RF (DME) Dexcom G6 Transmitter Device See Rx Instructions .ROUTE .MEDSUPPLY Qty: 1 Rx Instructions: As directed mupirocin 2 % ointment 1 applic topical TID Qty: 22 5RF benzonatate 100 mg capsule 100 mg PO TID PRN (Reason: cough) Qty: 30 0RF hydrocodone-acetaminophen 5-325 mg tablet 1 tab PO TIDP PRN (Reason: pain) Qty: 45 0RF Rx Instructions: one every 8 hours to control severe pain (DME) FreeStyle Lite Strips Strip See Rx Instructions .ROUTE .MEDSUPPLY Qty: 10 Rx Instructions: As directed (DME) blood-glucose meter [FreeStyle Lite Meter] Kit See Rx Instructions .ROUTE .MEDSUPPLY Qty: 1 Rx Instructions: As directed (DME) 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 Misc See Rx Instructions .ROUTE .MEDSUPPLY Qty: 1 Patient Comments: DIRECTED Rx Instructions: As directed atorvastatin 40 mg tablet 40 mg PO HS 30 Days Qty: 90 0RF metoprolol succinate 25 mg tablet extended release 24 hr 25 mg PO DAILY Qty: 90 0RF spironolactone 50 mg tablet 50 mg PO BID PRN (Reason: Fluid) Qty: 60 5RF furosemide [Lasix] 40 mg tablet 40 mg PO DAILY 30 Days Qty: 30 0RF Vraylar 3 mg capsule 3 mg PO DAILY Qty: 90 1RF insulin regular hum U-500 conc 500 unit/mL (3 mL) insulin pen 100 unit SQ BID Qty: 16 3RF Rx Instructions: Take 100 units BID, with a max total daily dose of 240 units (DME) pen needle, diabetic [Pen Needle] 31 gauge x 1/4 needle See Rx Instructions .Route Qty: 100 5RF Rx Instructions: As directed (DME) Dexcom G7 Sensor Device MISCELLANEOUS Qty: 3 11RF Rx Instructions: Use 1 sensor for every 10 days insulin aspart U-100 100 unit/mL solution 100 unit SQ TITR (DME) lancets [FreeStyle Lancets] 28 gauge misc MISCELLANEOUS (DME) Omnipod 5 G6-G7 Pods (Gen 5) Cartridge SQ Ozempic 0.25 mg or 0.5 mg (2 mg/3 mL) pen injector 0.25 mg SQ WEEKLY Qty: 3 0RF Rx Instructions: for 4 weeks Referrals Follow up/Referrals: Provider,Referral, [Referring, Medical] - See instructions Clinical Impressions Clinical Impression: Atrial fibrillation with RVR, Chest pain, Elevated troponin, Elevated brain natriuretic peptide (BNP) level, Morbid obesity Print Language Print Language: Persian Discharge ED Provider: Ciarra Walsh General Chief Complaint: Chest Pain Stated Complaint: Chest Pain Time Seen by Provider: 12/07/24 03:59 History of Present Illness HPI narrative: 49-year-old female with a history of morbid obesity, diabetes, VENTURA, atrial fibrillation on Eliquis, CAD, HFpEF presents to the ER with complaints of palpitations and chest pain. Patient reports she woke up approximately 2 hours prior to arrival with these symptoms. Reportedly EMS came out to her house and evaluated her if she was in atrial fibrillation. She brought the ECG tracing from EMS with her which demonstrates A-fib RVR rates in the 150s. She reports being completely compliant with all of her medications, no recent illness but states she has just felt under the weather recently but no fevers, chills, she does report mild nausea currently, no headache or dizziness, no numbness, tingling, or weakness. Related Data Home Medications ?Medication ?Instructions ?Recorded ?Confirmed blood-glucose transmitter (Dexcom #1 ea 06/17/24 12/03/24 G6 Transmitter device) insulin aspart U-100 100 unit/mL 100 unit SQ TITR 11/03/24 12/03/24 subcutaneous solution Held on 12/03/24. Instructions: Home Medication placed on hold at Doctor's office insulin pump cart,auto,BT,G6/7 11/03/24 12/03/24 (Omnipod 5 G6-G7 Pods (Gen 5) subcutaneous cartridge) Held on 12/03/24. 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) Previous Rx's ?Medication ?Instructions ?Recorded apixaban 5 mg tablet 5 mg PO BID atrial fibrillation 30 06/01/24 days #60 tabs desvenlafaxine succinate 50 mg 50 mg PO DAILY #90 tabs 06/01/24 tablet,extended release 24 hr (Pristiq) diltiazem HCl 300 mg 300 mg PO DAILY #90 caps 06/01/24 capsule,extended release 24 hr losartan 100 mg tablet 100 mg PO DAILY #90 tabs 06/01/24 trazodone 150 mg tablet 150 mg PO HS #90 tabs 06/01/24 mupirocin 2 % topical ointment 1 applic topical TID #22 grams 06/17/24 hydralazine 100 mg tablet 100 mg PO TID #90 tabs 10/26/24 semaglutide 0.25 mg or 0.5 mg (2 0.25 mg (0.368 mL) SQ WEEKLY #3 mL 11/04/24 mg/3 mL) subcutaneous pen injector ([employer]) Held on 12/03/24. Instructions: Home Medication placed on hold at Doctor's office benzonatate 100 mg capsule 100 mg PO TID PRN cough #30 caps 11/13/24 hydrocodone 5 mg-acetaminophen 325 1 tab PO TIDP PRN pain #45 tabs 11/13/24 mg tablet cariprazine 3 mg capsule (Vraylar) 3 mg PO DAILY #90 caps 11/16/24 atorvastatin 40 mg tablet 40 mg PO HS 30 days #90 tabs 11/24/24 furosemide 40 mg tablet (Lasix) 40 mg PO DAILY 30 days #30 tabs 11/24/24 metoprolol succinate 25 mg 25 mg PO DAILY #90 tabs 11/24/24 tablet,extended release 24 hr spironolactone 50 mg tablet 50 mg PO BID PRN Fluid #60 tabs 11/24/24 Dexcom G7 Sensor (blood-glucose #3 ea 12/04/24 sensor) insulin regular hum U-500 conc 500 100 unit (0.2 mL) SQ BID #16 mL 12/04/24 unit/mL(3 mL) subcut pen pen needle, diabetic 31 gauge x #100 ea 12/04/2403/28 (Pen Needle) Allergies Allergy/AdvReac Type Severity Reaction Status Date / Time No Known Allergies Allergy Verified 12/03/24 13:[address] [facility] Disclaimer: The information contained in this section may have been updated after the patient was seen, as this information can be updated by other users. 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 Acute pancreatitis Family history of lymphoma Below knee amputation Urinary tract infection Seizure disorder Fibromyalgia Cellulitis Pancreatitis History of gastroesophageal reflux (GERD) High blood pressure High cholesterol Afib Mood disorder CHF (congestive heart failure) Diabetes Tachycardia Surgical History History of cholecystectomy History of appendectomy History of section History of hysterectomy History of colonoscopy Family History Other Family history of cancer Family history of myocardial infarction Family history of stroke Social History Smoking Status: Former smoker tobacco type: cigarettes second hand exposure: Yes alcohol intake: former substance use type: denies use current occupational status: disabled Travel in the last 8 weeks?: None household members: spouse housing: house current occupational exposures/hazards: No caffeine: Yes Have you lived/traveled outside [place] in past 30 days?: No Contact w/someone who lives/traveled outside [place] past 30 days?: No Exposure to someone with infectious disease in past 14 days?: No Do you have a fever (greater than 100.4 F or 38 C)?: No Have you tested positive for COVID-19?: No Exposed to someone with COVID-19 in past 14 days?: No Do you have a sore throat?: No Do you have a cough?: No Do you have any weakness?: No Do you have any diarrhea?: No Are you experiencing any unusual bleeding?: No Do you have any muscle aches/pain?: No Do you have any abdominal pain?: No Are you experiencing loss of taste or smell?: No Other Medical History Have you received the Flu Vaccine for this season: No Have you received the Pneumonia Vaccine: No ROS Obtained: Yes Systems reviewed as appropriate & no additional complaints except as documented Per HPI Physical Exam General General appearance: alert and obese Head Head exam: atraumatic and normocephalic Eye Eye exam: Present PERRL and EOMI ENT ENT exam: Present mucous membranes moist Neck Neck exam: Present normal inspection and full ROM Chest Chest inspection: Present symmetric chest wall rise; Absent tenderness Respiratory Respiratory exam: Present normal lung sounds bilaterally; Absent respiratory distress, wheezes or stridor Cardiovascular Cardiovascular exam: Present tachycardia and irregular rhythm Abdominal Exam Abdominal exam: Present soft; Absent distention, tenderness, guarding or rebound Extremities Exam Extremities exam: Present full ROM and other (right BKA); Absent edema or calf tenderness Neurological Exam Neurological exam: Present alert and oriented X3; Absent motor sensory deficit Psychiatric Psychiatric exam: Present normal affect and normal mood Skin Skin exam: Present warm and dry HEART Score HEART Score HEART Score assessment performed?: Yes History (anamnesis): Moderately suspicious ECG: Non-specific disturbance Age: 45-65 years Risk factors: Atherosclerosis history Troponin: 1-3x normal limit HEART Score: 6 Critical Care Critical Care Time Critical Care Time: Yes Attestation: On 12/07/24, the high probability of a clinically significant, sudden or life threatening deterioration of the following system(s) required my full and direct attention, intervention and personal management. The time I documented below is in addition to time spent performing reported procedures but includes the following listed in this critical care notation. Total Time Total Critical Care Time: 35 Medical Decision Making Medical Records Medical records reviewed: Yes I reviewed the patient's medical records. Comment: Most recent cardiology note from 11/24/2024 reviewed by me demonstrates they refilled her atorvastatin, metoprolol, furosemide, spironolactone, plan to do Lexiscan to rule out ischemia due to angina, known CAD, and elevated troponin, plan to return to clinic in 2 to 3 weeks with Zuri. I do not see record of Zeny Nance Inquiry Pt receiving controlled substance: No Response Orders (Tests/Meds): ED MEDICATIONS Generic Name Dose Route Start Last Admin Trade Name Freq PRN Reason Stop Dose Admin Nitroglycerin 0.4 mg 12/07/24 04:00 12/07/24 04:09 Nitroglycerin 0.4mg Sl Tablet SL 12/08/24 04:00 0.4 mg Q5MINP PRN Administration Chest Pain Discontinued Medications Generic Name Dose Route Start Last Admin Trade Name Freq PRN Reason Stop Dose Admin Aspirin 324 mg 12/07/24 04:00 12/07/24 04:09 Aspirin 81mg Chewable Tablet PO 12/07/24 04:01 324 mg ONCE ONE Administration Diltiazem HCl 20 mg 12/07/24 04:00 12/07/24 04:08 Diltiazem 25mg/5ml Vial IV 12/07/24 04:01 20 mg ONCE ONE Administration Ondansetron HCl 4 mg 12/07/24 04:00 12/07/24 04:09 Ondansetron 4mg/2ml Vial IV 12/07/24 04:01 4 mg ONCE ONE Administration ORDERS Category Date Time Status XR chest portable Stat Exams 12/07/24 04:00 Ordered Complete Blood Count Auto Diff Stat Lab 12/07/24 04:00 Ordered Comprehensive Metabolic Panel Stat Lab 12/07/24 04:00 Ordered D-Dimer Stat Lab 12/07/24 04:00 Ordered NT Pro Brain Natriuretic Pep. Stat Lab 12/07/24 04:00 Ordered Prothrombin Time INR Stat Lab 12/07/24 04:00 Ordered Troponin I Q3H Lab 12/07/24 07:00 Ordered Troponin I Q3H Lab 12/07/24 10:00 Ordered Troponin I Stat Lab 12/07/24 04:00 Ordered Venous Blood Gas Stat RT 12/07/24 04:00 Ordered MDM Narrative Medical Decision Narrative: In summary, this morbidly obese 49-year-old female with comorbidities described in the HPI presents to the emergency department today with palpitations, chest pressure. On initial evaluation patient is tachycardic with irregular rhythm and hypertensive, afebrile, GCS 15, no chest wall tenderness, benign abdomen, lungs clear bilaterally. Differential diagnosis includes but is not limited to A-fib RVR, other arrhythmia, ACS, PE, esophageal spasm, pneumothorax, pneumonia, volume overload, among others. Based on these concerns, I ordered hematologic and serum labs, cardiac workup, D-dimer, chest x-ray. ECG personally interpreted demonstrates A-fib RVR, rate 176, normal QTc, no evidence of STEMI. Patient received IV diltiazem for treatment. Initial dose did not significantly change patient's heart rate, repeat dose brought her heart rate from the 140s and 150s down to the 90s and low 100s. Blood pressure improved to 140s. Labs personally reviewed demonstrate mild leukocytosis WBC 11.0, hemoglobin 13.6, normal platelets, PT/INR normal, VBG with normal pH, VBG lactic is elevated at 5.3, patient is receiving a small bolus of IV fluids but given her cardiac history I do not want to fluid overload her. UA negative for findings of infection. Blood glucose over 400. I added serum acetone to workup, however patient has negative ketones in the urine and no acidosis on VBG. Sodium 134, when corrected for glucose 139. Patient does have evidence of prerenal azotemia being treated with IV fluids. Anion gap is also slightly elevated. XR personally interpreted demonstrates interstitial edema. There is a hyperdense area in the right perihilar area which I believed to likely be breast tissue overlap, but I reach out to the reading radiologist about that and he agrees. He does not believe there is an infiltrate. He believes it is superimposed tissue. I appreciate his thoughts. See radiology read for full interpretation. D-dimer 0.55, by years criteria PE excluded and I am further reassured because patient is on thinners for A-fib. Initial troponin mildly elevated at 0.04, patient has had mild troponin elevation previously, and this could be related to her fast rates, however with her chest pressure cannot exclude NSTEMI. BNP is also elevated compared to previous but she is showing signs of of intravascular volume depletion. Repeat ECG after patient had improved rate from diltiazem was personally interpreted demonstrating atrial fibrillation, rate 88, normal axis, normal QTc, no STEMI On reassessment patient's symptoms have improved though she still reports some chest pressure. Heart rate remains in the low 100s with blood pressure improved compared to arrival. At this time I believe patient is appropriate for admission to the hospital for further cardiac monitoring and workup. She is agreeable to this. I discussed this case with the hospitalist who graciously accepted this patient for admission after discussing the case and the fact that patient was going to have a stress test soon for angina symptoms anyway. She was admitted in stable condition.
[2024-12-07 04:20] LABS: Hematocrit 40.1 % (37.0-47.0); Hemoglobin 13.6 g/dL (12.2-16.2); Immature Granulocytes % 1.1 %; Mean Corpuscular HGB Conc 33.9 g/dL (31.8-35.4); Mean Corpuscular Hemoglobin 27.8 pg (27.0-31.2); Mean Corpuscular Volume 82.0 fl (81-99); Nucleated Red Blood Cells % 0 %; Platelet Count 245 K/mm3 (142-424); Red Blood Count 4.89 M/mm3 (4.20-5.40); Red Cell Distribution Width-SD 40.0 fL; White Blood Count 11.0 K/mm3 (4.8-10.8)
[2024-12-07 04:25] LABS: Microscopic, Urine URINE MICROSCOPIC (MICROSCOPIC)
[2024-12-07 04:26] LABS: VBG HCO3 26.1 mmol/L (23-30); VBG PCO2 46.9 mmol/L (35-51); VBG PH 7.36 mmol/L (7.31-7.41); VBG PO2 64.6 mmol/L (28-40)
[2024-12-07 04:27] LABS: Bilirubin,Urine Negative (Negative); Color,Urine YELLOW (Yellow); Glucose,Urine (UA) 3+ (Negative); Ketones,Urine Negative (Negative); Leukocyte Esterase,Urine Negative (Negative); PH,Urine 6.0 (5.0-8.5); Protein,Urine TRACE (Negative); Specific Gravity, Urine 1.010 (1.005-1.030); Urobilinogen,Urine 0.2 EU/dl (0.2)
[2024-12-07 04:28] LABS: Lactate Venous 5.3 mmol/L (0.4-2.0)
[2024-12-07 04:30] LABS: INR 0.93 (0.9-1.1); Prothrombin Time 10.4 seconds (10.1-12.5)
--- NOTE | 2024-12-07 04:31 | ECG_ITS ---
APPROVED REPORT Exam: Resting ECG HR:88 bpm ECG Measurements Heart Rate 88 AXES QRSd 107 QRS -61 QT 395 T 57 QTc 440 Conclusion ATRIAL FIBRILLATION LOW QRS VOLTAGE IN PRECORDIAL LEADS [QRS DEFLECTION < 1.0 mV IN CHEST LEADS] LEFT ANTERIOR FASCICULAR BLOCK [QRS AXIS <= -45, QR IN I, RS IN II] POSSIBLE ANTERIOR MYOCARDIAL INFARCTION , PROBABLY OLD [30 ms Q WAVE IN V3/V4, OR R < 0.2 mV IN V4] No STEMI Electronically signed by : TREMAINE MACIAS, 12/11/2024 05:01:52
[2024-12-07 04:38] LABS: Alanine Aminotransferase 31 U/L (12-78); Albumin Level 4.1 g/dl (3.5-5.0); Albumin/Globulin Ratio 1.3 (1.1-1.8); Alkaline Phosphatase 90 U/L (38-126); Anion Gap 16.2 mEq/L (5-15); Aspartate Amino Transferase 33 U/L (14-36); Bilirubin,Total 0.7 mg/dl (0.2-1.3); Blood Urea Nitrogen 24 mg/dl (7-17); Calcium 9.6 mg/dl (8.4-10.2); Carbon Dioxide 25 mmol/L (22.0-30.0); Chloride 97 mmol/L (98-107); Creatinine Clearance Estimated 73 mL/min (50-200); Creatinine,Serum 0.90 mg/dl (0.52-1.04); D-Dimer 0.55 ug/mL (0.0-0.5); Estimated Glomerular Filt Rate 66 ml/min (>60); GFR (African American) 80 ML/MIN (>60); Globulin 3.2 g/dL (1.3-3.2); Potassium 4.2 mmoL/L (3.5-5.1); Sodium 134 mmol/L (136-145); Total Protein,Serum 7.3 g/dl (6.3-8.2)
[2024-12-07 04:38] LABS: Bacteria,Urine Trace /lpf
[2024-12-07 04:40] LABS: Glucose 412 mg/dl (74-100)
[2024-12-07] MEDS: RINGERS SOLUTION,LACTATED 500 ML 999 ML IV (04:41)
[2024-12-07 04:50] LABS: NT Pro Brain Natriuretic Pep. 556 pg/mL (0-125); Troponin I 0.04 ng/ml (0.00-0.034)
[2024-12-07 04:56] LABS: Acetone, Serum (Rapid) None Detected (None Detect)
[2024-12-07 05:01] LABS: Magnesium 1.6 mg/dl (1.6-2.3); Phosphorous 4.3 mg/dl (2.5-4.5)
--- NOTE | 2024-12-07 05:28 | P.HP_ITS ---
<Statement entered by Doug Cueto MD - 12/07/24 12:10> Agree with the plan of care as outlined by the FINANCIAL LEGAL ASSISTANT. History of Present Illness *Admission Date: 12/07/24 *Reason for visit:: Chest pain and palpitations *History of present illness: This is a 49-year-old female past medical history of atrial fibrillation, VENTURA, DM 2, morbid obesity, HFpEF, CAD, who presents emergency department today with chest pain and palpitations. She reports waking up from sleep with chest pain and palpitations. 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 She declined EMS transport but brought her ECG tracing from EMS with her which showed A-fib with RVR with heart rate in the 150s. She reports being compliant with home medications. States she has felt generally unwell recently but denies any fevers chills or nausea. Denies any dizziness or syncope. She recently had an appoint with Zuri lomeli with cardiology who recommended stress testing in the near future for ongoing angina symptoms not completed this test upon arrival to emergency department she was noted to be in atrial fibrillation with RVR with a heart rate of 176 as well as significant hypertension with systolic blood pressure of 235/154. She received diltiazem bolus in the emergency department times x 2 with improvement in heart rate to the low 100s as well as improvement in blood pressure.. She was also medicated with nitroglycerin and aspirin. Laboratory evaluation notable for mildly elevated troponin 0.04, glucose of 412 with mildly elevated anion gap of 16 but normal CO2. BNP of 556.. Given her extensive medical history and presentation with A-fib with RVR and hypertension it is felt she would benefit from hospitalization. She is admitted to the hospital service at this time. [facility] Disclaimer: The information contained in this section may have been updated after the patient was seen, as this information can be updated by other users. 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 Acute pancreatitis Family history of lymphoma Below knee amputation Urinary tract infection Seizure disorder Fibromyalgia Cellulitis Pancreatitis History of gastroesophageal reflux (GERD) High blood pressure High cholesterol Afib Mood disorder CHF (congestive heart failure) Diabetes Tachycardia Surgical History History of cholecystectomy History of appendectomy History of section History of hysterectomy History of colonoscopy Family History Other Family history of cancer Family history of myocardial infarction Family history of stroke Social History Smoking Status: Never smoker second hand exposure: Yes alcohol intake: former substance use type: denies use current occupational status: disabled Travel in the last 8 weeks?: None household members: spouse housing: house current occupational exposures/hazards: No caffeine: Yes Have you lived/traveled outside [place] in past 30 days?: No Contact w/someone who lives/traveled outside [place] past 30 days?: No Exposure to someone with infectious disease in past 14 days?: No Do you have a fever (greater than 100.4 F or 38 C)?: No Have you tested positive for COVID-19?: No Exposed to someone with COVID-19 in past 14 days?: No Do you have a sore throat?: No Do you have a cough?: No Do you have any weakness?: No Do you have any diarrhea?: No Are you experiencing any unusual bleeding?: No Do you have any muscle aches/pain?: No Do you have any abdominal pain?: No Are you experiencing loss of taste or smell?: No Other Medical History Have you received the Flu Vaccine for this season: No Have you received the Pneumonia Vaccine: No Review of Systems Review of Systems Review of systems:: pertinent systems reviewed and negative unless documented below Review of systems (narrative): Negative except for HPI Meds Home Medications and Allergies Home Medications ?Medication ?Instructions ?Recorded ?Confirmed ?Type apixaban 5 mg tablet 5 mg PO BID atrial fibrillat ion 30 06/01/24 12/03/24 Rx days #60 tabs desvenlafaxine succinate 50 mg 50 mg PO DAILY #90 tabs 06/01/24 12/03/24 Rx tablet,extended release 24 hr (Pristiq) diltiazem HCl 300 mg 300 mg PO DAILY #90 caps 01/1612/03/24 Rx capsule,extended release 24 hr losartan 100 mg tablet 100 mg PO DAILY #90 tabs 01/1612/03/24 Rx trazodone 150 mg tablet 150 mg PO HS #90 tabs 12/03/24 Rx blood-glucose transmitter (Dexcom #1 ea 06/17/2412/03 History G6 Transmitter device) mupirocin 2 % topical ointment 1 applic topical TID #2 2 grams 06/17/24 12/03/24 Rx hydralazine 100 mg tablet 100 mg PO TID #90 tabs 10/2612/03/24 Rx insulin aspart U-100 100 unit/mL 100 unit SQ TITR 10/2312/03/24 History subcutaneous solution Held on 12/03/24. Instructions: Home Medication placed on hold at Doctor's office insulin pump cart,auto,BT,G6/7 11/03/24 12/03/24 Hist ory (Omnipod 5 G6-G7 Pods (Gen 5) subcutaneous cartridge) Held on 12/03/24. Instructions: Home Medication placed on hold at Doctor's office lancets 28 gauge (FreeStyle 11/03/24 12/03/24 History Lancets) semaglutide 0.25 mg or 0.5 mg (2 0.25 mg (0.368 mL) SQ WEEKLY #3 mL 11/04/24 12/03/24 Rx mg/3 mL) subcutaneous pen injector (InforcePro) Held on 12/03/24. Instructions: Home Medication placed on hold at Doctor's office benzonatate 100 mg capsule 100 mg PO TID PRN cough #30 caps 11/13/24 12/03/24 Rx hydrocodone 5 mg-acetaminophen 325 1 tab PO TIDP PRN p ain #45 tabs 11/13/24 12/03/24 Rx mg tablet cariprazine 3 mg capsule (Vraylar) 3 mg PO DAILY #90 c aps 11/16/24 12/03/24 Rx atorvastatin 40 mg tablet 40 mg PO HS 30 days #90 tabs 11/24/24 12/03/24 Rx blood sugar diagnostic (FreeStyle #10 ea 11/24/2411/23 History Lite Strips) blood-glucose meter (FreeStyle #1 ea 11/24/24 12/03/24 History Lite Meter kit) blood-glucose,gizzard puller,cont #1 ea 11/24/24 12/03/24 Hi story (Dexcom G7 Special Machine Operator) furosemide 40 mg tablet (Lasix) 40 mg PO DAILY 30 days #30 tabs 11/24/24 12/03/24 Rx metoprolol succinate 25 mg 25 mg PO DAILY #90 tabs 05/1912/03/24 Rx tablet,extended release 24 hr spironolactone 50 mg tablet 50 mg PO BID PRN Fluid #60 tabs 11/24/24 12/03/24 Rx Dexcom G7 Sensor (blood-glucose #3 ea 12/04/24 Rx sensor) insulin regular hum U-500 conc 500 100 unit (0.2 mL) S Q BID #16 mL 12/04/24 Rx unit/mL(3 mL) subcut pen pen needle, diabetic 31 gauge x #100 ea 12/04/24 Rx 1/4 (Pen Needle) New Prescriptions to Start Prescriptions: Allergies Allergy/AdvReac Type Severity Reaction Status Date / Time No Known Allergies Allergy Verified 12/03/24 13:31 Exam Data for Last 24 hours Vital signs and Labs for Last 24 Hours: Temp Pulse Resp BP Pulse Ox O2 Del Method 98.4 F 90 21 107/64 L 95 Room Air 12/07/24 04:01 12/07/24 04:45 12/07/24 04:45 12/07/24 05:00 12/07/24 04:45 12/07/24 04:01 Laboratory Results - last 24 hr 12/07/24 04:13: WBC 11.0 H, RBC 4.89, Hgb 13.6, Hct 40.1, MCV 82.0, MCH 27.8, MCHC 33.9, RDW 13.6, Plt Count 245, MPV 9.5, Neut % (Auto) 71.5, Lymph % (Auto) 17.9, [place] % (Auto) 6.3, Eos % (Auto) 2.7, Baso % (Auto) 0.5, Neut # (Auto) 7.9 H, Lymph # (Auto) 2.0, [place] # (Auto) 0.7, Eos # (Auto) 0.3, Baso # (Auto) 0.1, PT 10.4, INR 0.93, D-Dimer 0.55 H, Sodium 134 L, Potassium 4.2, Chloride 97 L, Carbon Dioxide 25, Anion Gap 16.2 H, BUN 24 H, Creatinine 0.90, Estimated Creat Clear 73, Estimated GFR 66, Est GFR ( Amer) 80, Glucose 412 H*, Calcium 9.6, Phosphorus 4.3, Magnesium 1.6, Total Bilirubin 0.7, AST 33, ALT 31, Alkaline Phosphatase 90, Troponin I 0.04 H, NT-Pro-B Natriuret Pep 556 H, Total Protein 7.3, Albumin 4.1, Globulin 3.2, Albumin/Globulin Ratio 1.3, Acetone Level None detected 12/07/24 04:22: Urine Color Yellow, Urine Appearance Clear, Urine pH 6.0, Ur Specific [place] 1.010, Urine Protein Trace, Urine Glucose (UA) 3+, Urine Ketones Negative, Urine Blood Negative, Urine Nitrate Negative, Urine Bilirubin Negative, Urine Urobilinogen 0.2, Ur Leukocyte Esterase Negative, Urine RBC None, Urine WBC None, Ur Squamous Epith Cells None, Urine Bacteria Trace 12/07/24 04:24: VBG pH 7.36, VBG pCO2 46.9, VBG pO2 64.6 H, VBG HCO3 26.1, VBG Total CO2 27.6 H, VBG O2 Saturation 91.7 H, VBG Base Excess 0.8, VBG Lactic Acid 5.3 H I & O for Last 24 hours: Intake & Output 12/04/24 12/05/24 12/06/24 12/07/24 23:59 23:59 23:59 23:59 Weight 181.437 kg Constitutional Constitutional: no acute distress *Routine HEENT Exam Head: Present normocephalic Eye: Present EOMI and PERRL ENT: Present mucous membranes moist *Routine Neck Exam Neck: Present supple; Absent lymphadenopathy *Routine Respiratory Exam Respiratory: Present CTA bilaterally *Routine Cardiovascular Exam Cardiovascular: Present irregular rhythm and irregularly irregular Comments: Atrial fibrillation rate controlled at 100 *Routine Abdominal Exam Abdominal: Present soft and normoactive bowel sounds; Absent tenderness *Routine Rectal Exam Rectal:: deferred *Routine Genitalia Exam Genitalia:: deferred *Routine Extremities Exam Extremities: Absent cyanosis, clubbing or edema *Routine Skin Exam Skin: Present warm; Absent rash *Routine Neurological Exam Neurological: Present alert and oriented X3 Assessment and Plan *Assessment and plan (1) Atrial fibrillation with RVR: Status: Acute Category: Medical Code(s): I48.91 - Unspecified atrial fibrillation (2) Morbid obesity: Status: Acute Category: Medical Code(s): E66.01 - Morbid (severe) obesity due to excess calories (3) NSTEMI (non-ST elevated myocardial infarction): Status: Acute Category: Medical Code(s): I21.4 - Non-ST elevation (NSTEMI) myocardial infarction (4) (HFpEF) heart failure with preserved ejection fraction: Status: Acute Category: Medical Code(s): I50.30 - Unspecified diastolic (congestive) heart failure (5) VENTURA (obstructive sleep apnea): Status: Chronic Category: Medical Code(s): G47.33 - Obstructive sleep apnea (adult) (pediatric) Plan #Atrial fibrillation with RVR on Eliquis and diltiazem 300 mg daily. Reports being compliant with both of these medications. Has seen cardiology in office recently and given patient's continued complaints of's chest pain and shortness of breath, chemical stress test scheduled for to [facility]. Cardiology consult this a.m., appreciate recommendations Received 40 mg total bolus of IV diltiazem in the emergency department with improvement in heart rate 100s. Remains controlled at this time. Do not have 300 mg diltiazem HCl on formulary here, will dose with 240mg this a.m. and await further recommendations from cardiology Hold home Eliquis at this time pending cardiology consult Cardiac monitoring #Hypertensive urgency Improved with IV diltiazem bolus. Initial blood pressure 234 systolic. Continue home antihypertensives #DM2 with hyperglycemia Glucose 412 on chemistry today with elevated gap of 16 but normal CO2. Will continue with sliding scale and long-acting insulin #History of RLE BKA Noted, prosthetic in room with patient. No open wounds noted #HFpEF Last echocardiogram October 2024 Low normal LV function 50 to 55%, mild hypokinesis of the septum and inferior septal LV Continue home Lasix Appears euvolemic
--- NOTE | 2024-12-07 05:48 | PC.NURSE ---
Patient arrived to floor via stretcher from ED at 05:45.
[2024-12-07 06:01] LABS: Cholesterol 177 mg/dl (140-200); HDL Cholesterol 58 mg/dl (40-60); Triglycerides 347 mg/dl (30-150)
[2024-12-07] MEDS: humaLOG 100 UNITS/ML 10ML VIAL (SSI) SUBCUT ×4 (06:16→20:21)
[2024-12-07] MEDS: MAGNESIUM SULFATE IN WATER 2 GM/50 ML PIGGYBACK IV ×2 (06:17→07:50)
[2024-12-07 07:36] LABS: Troponin I 0.05 ng/ml (0.00-0.034)
--- NOTE | 2024-12-07 07:53 | CA_ITS ---
APPROVED REPORT EXAM: Limited 2D Echocardiogram with contrast Occupational Safety And Health Manager: Kayla Ashley RT(R) Ht: 5 ft 7 in Wt: 350lbs BSA: 2.57 BP: 135/82 mmHg Indications: AFIB, CAD. recent echo 11/04/24. Ordered as a limited Echo Enhancing Agent Indication: Endocardial border delineation Agent(s) / Amount(s) Used: Definity 2 cc M-Mode Dimensions RVDd 2.37 cm (0.9-2.6) LVDd 4.67 cm (3.5-5.7) LVDs 3.54 cm (3.5-5.7) IVSd 1.01 cm (0.6-1.1) PWd 1.01 cm (0.6-1.1) EF (Teich) 48.10% FS 24.20% EDV (Teich) 100.80 mL ESV (Teich) 52.30 mL Other Information Study Quality: Fair Conclusion This is a limited TTE to evaluate for LV systolic function. Limited windows are obtained. Ultrasound enhancing agent is administered. The left ventricle is normal in size. There is increased LV wall thickness. The septum is asynchonous. There is normal LV systolic function. LVEF is 55-60%. Ultrasound enhancing agent demonstrates no evidence of LV thrombus. Electronically signed by : Priya Bain MD 12/07/2024 15:40:07
[2024-12-07 08:26] LABS: Reflex Lactic Add Lactic Reflex
[2024-12-07 09:04] LABS: Lactic Acid Follow Up (RFLX 1) 3.0 mmol/L (0.7-2.1)
[2024-12-07 09:04] LABS: Thyroid Stimulating Hormone 4.12 uIU/mL (0.465-4.68)
--- NOTE | 2024-12-07 09:09 | CT_ITS ---
FINAL REPORT TECHNIQUE: Postcontrast axial images of the chest were performed in a CTA protocol. This study was performed with techniques to keep radiation doses as low as reasonably achievable, (ALARA). Individualized dose reduction technique using automated exposure control or adjustment of mA and/or kV according to the patient's size were employed. CLINICAL HISTORY: SOA, Recurrent A. fib, Chest pain COMPARISON: 06/13/2024 FINDINGS: The heart is normal in size. No adenopathy is identified. There is no gross central pulmonary embolism. Subsegmental vessels are not well-evaluated. Aorta is normal in caliber without aneurysm or dissection. Lungs are clear. There is no pleural or pericardial effusion. There is a soft tissue nodule in the medial most right breast in the parasternal region measuring 14 mm. IMPRESSION: No evidence for gross PE on this exam. No acute lung disease. 14 mm soft tissue nodule in the medial most right breast which could represent complex cyst or solid nodule. Recommend directed ultrasound. Reviewed, Interpreted and Dictated by Carlos Herrera MD Transcribed by Massiel Marquez Authenticated and [facility]
[2024-12-07] MEDS: DEFINITY US ECHO CONTRAST 2ML INJ 2 MG IV (09:10)
[2024-12-07] MEDS: ASPIRIN 81MG CHEWABLE TABLET 81 MG PO (09:14)
[2024-12-07] MEDS: dilTIAZem ER 240MG CAPSULE 240 MG PO (09:14)
--- NOTE | 2024-12-07 10:17 | EXP.CARD.CON ---
History of Present Illness History of Present Illness Consult date: 12/07/24 Requesting physician: Doug Cueto Consult reason: chest pain, atrial fibrillation and shortness of breath Chief complaint: A. fib with RVR, CP, SOA Additional Medical History:: 1. CAD is present. -Mild, medical mgt (JUNE 2022 @ [facility])-Document scanned in [employer] -Normal renal arteries (2017) 2. HTN/HFpEF -Echo, 10/2024, technically difficult study. Low normal EF at 50-55%, mild septal and inferoseptal hypokinesis. RV not well-visualized. No significant valve disease. 3. HLD-LDL goal is < 55. LDL 58 (05/2024). on statin. 4. PAfib is SR. -A/C on Eliquis, denies bleeding. 5. DM2 is present. HgbA1c 8.6% (10/2024) 6. 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 Morbid Obesity with BMI 54.9 History of present illness: 49-year-old white female with known history of paroxysmal atrial fibrillation, morbid obesity, CAD, HFpEF, Damitz mellitus type II and VENTURA presents emergency department for sudden onset of chest pain and palpitations while at home. She called EMS who responded and noted that she was in A-fib with RVR. She declined EMS transportation but brought the ECG tracings which did show A-fib which was confirmed in the emergency department. She did receive IV diltiazem x 2 with improvement in heart rate to the low 100s and blood pressure from systolic of 235 mmHg down to the low 100s as well. Subsequently admitted for further evaluation and treatment. Troponins overnight have returned mildly elevated at 0.04 and 0.05. Patient continues to have complaints of chest pain and shortness of breath. Cardiology consulted for further evaluation. Due to elevated D-dimer chest CTA to look for PE has been ordered this morning. She was recently seen as an outpatient in the office with plans for a [facility]. If CTA of the chest is negative then we will consider proceeding with left heart catheterization this admission. [facility] Disclaimer: The information contained in this section may have been updated after the patient was seen, as this information can be updated by other users. 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 Acute pancreatitis Family history of lymphoma Below knee amputation Urinary tract infection Seizure disorder Fibromyalgia Cellulitis Pancreatitis History of gastroesophageal reflux (GERD) High blood pressure High cholesterol Afib Mood disorder CHF (congestive heart failure) Diabetes Tachycardia Surgical History History of cholecystectomy History of appendectomy History of section History of hysterectomy History of colonoscopy Family History Other Family history of cancer Family history of myocardial infarction Family history of stroke Social History (Updated 12/07/24 @ 06:34 by Beronica Samayoa RN) Smoking Status: Never smoker second hand exposure: Yes alcohol intake: former substance use type: denies use current occupational status: disabled Travel in the last 8 weeks?: None household members: spouse housing: house current occupational exposures/hazards: No caffeine: Yes Have you lived/traveled outside [place] in past 30 days?: No Contact w/someone who lives/traveled outside US past 30 days?: No Exposure to someone with infectious disease in past 14 days?: No Do you have a fever (greater than 100.4 F or 38 C)?: No Have you tested positive for COVID-19?: No Exposed to someone with COVID-19 in past 14 days?: No Do you have a sore throat?: No Do you have a cough?: No Do you have any weakness?: No Are you experiencing any nausea/vomitting?: No Do you have any diarrhea?: No Are you experiencing any unusual bleeding?: No Do you have any muscle aches/pain?: No Do you have any abdominal pain?: No Are you experiencing loss of taste or smell?: No Review of Systems Review of Systems Review of systems:: pertinent systems reviewed and negative unless documented below *Cardiovascular Cardiovascular: Reports chest pain, Reports dyspnea and Reports dyspnea on exertion *Respiratory Respiratory: Reports dyspnea and Reports dyspnea on exertion Exam Data for Last 24 hours Vital signs and Labs for Last 24 Hours: Temp Pulse Resp BP Pulse Ox O2 Del Method 97.9 F 84 22 144/86 H 96 Room Air 12/07/24 07:10 12/07/24 08:00 12/07/24 07:10 12/07/24 07:10 12/07/24 07:10 12/07/24 07:10 Laboratory Results - last 24 hr 12/07/24 04:13: WBC 11.0 H, RBC 4.89, Hgb 13.6, Hct 40.1, MCV 82.0, MCH 27.8, MCHC 33.9, RDW 13.6, Plt Count 245, MPV 9.5, Neut % (Auto) 71.5, Lymph % (Auto) 17.9, [place] % (Auto) 6.3, Eos % (Auto) 2.7, Baso % (Auto) 0.5, Neut # (Auto) 7.9 H, Lymph # (Auto) 2.0, [place] # (Auto) 0.7, Eos # (Auto) 0.3, Baso # (Auto) 0.1, PT 10.4, INR 0.93, D-Dimer 0.55 H, Sodium 134 L, Potassium 4.2, Chloride 97 L, Carbon Dioxide 25, Anion Gap 16.2 H, BUN 24 H, Creatinine 0.90, Estimated Creat Clear 73, Estimated GFR 66, Est GFR ( Amer) 80, Glucose 412 H*, Calcium 9.6, Phosphorus 4.3, Magnesium 1.6, Total Bilirubin 0.7, AST 33, ALT 31, Alkaline Phosphatase 90, Troponin I 0.04 H, NT-Pro-B Natriuret Pep 556 H, Total Protein 7.3, Albumin 4.1, Globulin 3.2, Albumin/Globulin Ratio 1.3, Triglycerides 347 H, Cholesterol 177, LDL Cholesterol Direct 69.12 L, VLDL Cholesterol 69 H, HDL Cholesterol 58, Cholesterol/HDL Ratio 3.1, TSH 4.12, Acetone Level None detected 12/07/24 04:22: Urine Color Yellow, Urine Appearance Clear, Urine pH 6.0, Ur Specific [place] 1.010, Urine Protein Trace, Urine Glucose (UA) 3+, Urine Ketones Negative, Urine Blood Negative, Urine Nitrate Negative, Urine Bilirubin Negative, Urine Urobilinogen 0.2, Ur Leukocyte Esterase Negative, Urine RBC None, Urine WBC None, Ur Squamous Epith Cells None, Urine Bacteria Trace 12/07/24 04:24: VBG pH 7.36, VBG pCO2 46.9, VBG pO2 64.6 H, VBG HCO3 26.1, VBG Total CO2 27.6 H, VBG O2 Saturation 91.7 H, VBG Base Excess 0.8, VBG Lactic Acid 5.3 H 12/07/24 07:06: Lactate 3.0 H, Troponin I 0.05 H I & O for Last 24 hours: Intake & Output 12/04/24 12/05/24 12/06/24 12/07/24 11:59 11:59 11:59 11:59 Intake Total 600 / 600 Balance 600 / 600 Weight 350 lb Constitutional Constitutional: mild distress *Routine Respiratory Exam Respiratory: Present decreased breath sounds; Absent rales, rhonchi or wheezes *Routine Cardiovascular Exam Cardiovascular: Present tachycardia and irregularly irregular; Absent murmur, gallop or rubs *Routine Extremities Exam Extremities: Present edema Comments: RLAnna PAEZ *Routine Neurological Exam Neurological: Present alert, oriented X3 and CN II-XII intact Meds Home Medications and Allergies Home Medications ?Medication ?Instructions ?Recorded ?Confirmed ?Type apixaban 5 mg tablet 5 mg PO BID atrial fibrillation 30 06/01/24 12/07/24 Rx days #60 tabs desvenlafaxine succinate 50 mg 50 mg PO DAILY #90 tabs 06/01/24 12/07/24 Rx tablet,extended release 24 hr (Pristiq) diltiazem HCl 300 mg 300 mg PO DAILY #90 caps 06/01/24 12/07/24 Rx capsule,extended release 24 hr losartan 100 mg tablet 100 mg PO DAILY #90 tabs 06/01/24 12/07/24 Rx blood-glucose transmitter (Dexcom #1 ea 06/17/24 12/07/24 History G6 Transmitter device) hydralazine 100 mg tablet 100 mg PO TID #90 tabs 10/26/24 12/07/24 Rx insulin aspart U-100 100 unit/mL 0 unit SQ DIRECTED 11/03/24 12/07/24 History subcutaneous solution Held on 12/03/24. Instructions: Home Medication placed on hold at Doctor's office insulin pump cart,auto,BT,G6/7 11/03/24 12/07/24 History (Omnipod 5 G6-G7 Pods (Gen 5) subcutaneous cartridge) Held on 12/03/24. Instructions: Home Medication placed on hold at Doctor's office lancets 28 gauge (FreeStyle 11/03/24 12/07/24 History Lancets) atorvastatin 40 mg tablet 40 mg PO HS 30 days #90 tabs 11/24/24 12/07/24 Rx blood sugar diagnostic (FreeStyle #10 ea 11/24/24 12/07/24 History Lite Strips) blood-glucose meter (FreeStyle #1 ea 11/24/24 12/07/24 History Lite Meter kit) blood-glucose,business systems lead,cont #1 ea 11/24/24 12/07/24 History (Dexcom G7 Freight Car [employer]er Delta System) furosemide 40 mg tablet (Lasix) 40 mg PO DAILY 30 days #30 tabs 11/24/24 12/07/24 Rx metoprolol succinate 25 mg 25 mg PO DAILY #90 tabs 11/24/24 12/07/24 Rx tablet,extended release 24 hr spironolactone 50 mg tablet 50 mg PO BID PRN Fluid #60 tabs 11/24/24 12/07/24 Rx Dexcom G7 Sensor (blood-glucose #3 ea 12/04/24 12/07/24 Rx sensor) pen needle, diabetic 31 gauge x #100 ea 12/04/24 12/07/24 Rx 1/4 (Pen Needle) hydrocodone 5 mg-acetaminophen 325 1 tab PO TIDP PRN Severe Pain 12/07/24 12/07/24 History mg tablet (Scale Score 7-10) insulin regular hum U-500 conc 500 0 unit SQ DIRECTED 12/07/24 12/07/24 History unit/mL(3 mL) subcut pen semaglutide 0.25 mg or 0.5 mg (2 0.25 mg SQ WEEKLY 12/07/24 12/07/24 History mg/3 mL) subcutaneous pen injector (Ozempic) trazodone 150 mg tablet 150 mg PO HS PRN Sleep 12/07/24 12/07/24 History New Prescriptions to Start Prescriptions: Allergies Allergy/AdvReac Type Severity Reaction Status Date / Time No Known Allergies Allergy Verified 12/03/24 13:31 Assessment and Plan *Assessment and plan (1) Atrial fibrillation with RVR: Status: Acute Category: Medical Code(s): I48.91 - Unspecified atrial fibrillation (2) Morbid obesity: Status: Acute Category: Medical Code(s): E66.01 - Morbid (severe) obesity due to excess calories (3) Elevated troponin: Status: Acute Category: Medical Code(s): R79.89 - Other specified abnormal findings of blood chemistry (4) (HFpEF) heart failure with preserved ejection fraction: Status: Acute Qualifiers: Heart failure chronicity: acute on chronic Qualified Code(s): I50.33 - Acute on chronic diastolic (congestive) heart failure Category: Medical Code(s): I50.30 - Unspecified diastolic (congestive) heart failure (5) VENTURA (obstructive sleep apnea): Status: Chronic Category: Medical Code(s): G47.33 - Obstructive sleep apnea (adult) (pediatric) (6) HLD (hyperlipidemia): Status: Chronic Qualifiers: Hyperlipidemia type: mixed hyperlipidemia Qualified Code(s): E78.2 - Mixed hyperlipidemia Category: Medical Code(s): E78.5 - Hyperlipidemia, unspecified (7) Diabetes mellitus: Status: Chronic Qualifiers: Diabetes mellitus complication status: with other specified complication Diabetes mellitus superintendent terminal insulin use: unspecified chcf insulin use status Diabetes mellitus type: type 2 Qualified Code(s): E11.69 - Type 2 diabetes mellitus with other specified complication Category: Medical Code(s): E11.9 - Type 2 diabetes mellitus without complications Plan 1. A-fib with RVR -Chest CTA pending to rule out pulmonary embolus -Resume home dose of diltiazem 300 mg daily -Holding Eliquis at this time for possible need for cardiac cath 2. Chest pain with mildly elevated troponins, concern for non-ST elevation AL versus strain from the A-fib - Echo pending - If CT of the chest negative then consider proceeding with cardiac catheterization - Known mild CAD by cardiac cath June 2022 at [facility] 3. Hypertension emergency on admit -Normal renals, 2018 -Improved on home medication -Echo, 10/2024, EF 50-55% with hypokinesis of the septal and inferoseptal bray. Technically difficult study. 4. HFpEF -GDMT with metoprolol, spironolactone, losartan, furosemide in addition to hydralazine and diltiazem -No SGLT2 inhibitor due to history of pancreatitis 5. Diabetes mellitus with long-term insulin use -Hemoglobin A1c 8.6 on 10/26/2024 6. Morbid obesity with BMI 54.9 Check CTA of the chest to rule out pulmonary embolus If chest CTA is negative then consider proceeding with cardiac catheterization and renal angiogram due to elevated troponins, recurrent chest pain in wall motion abnormalities on echocardiogram last month and hypertensive emergency.
--- NOTE | 2024-12-07 10:29 | HMH.PTEV ---
Physical Therapy Evaluation Rehab PT IP Evaluation Start: 12/07/24 06:41 Freq: ONCE Status: Active Protocol: Document 12/07/24 09:45 GENIE (Rec: 12/07/24 09:52 GENIE [id number]) Subjective/History History History Per H&P: This is a 49-year-old female past medical history of atrial fibrillation, VENTURA, DM 2, morbid obesity, HFpEF, CAD, who presents emergency department today with chest pain and palpitations. She reports waking up from sleep with chest pain and palpitations. 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 She declined EMS transport but brought her ECG tracing from EMS with her which showed A-fib with RVR with heart rate in the 150s. She reports being compliant with home medications. States she has felt generally unwell recently but denies any fevers chills or nausea. Denies any dizziness or syncope. Subjective Subjective Pt reports she is w/c level for all mobility. At baseline, pt requires assistance by her for all slide board transfers, bed mobility, and w/c mobility. Pt owns a manual w/c, hospital bed, ramped entrance, slide board, and BSC. Pt reports she is not interested in rehab or HH services. New diagnosis of No cancer in past 12 months? [facility] How much help from another person do you currently need... Turning from your None back to your side while in a flat bed without using bedrails? Moving from lying on None back to sitting on the side of a flat bed without using bedrails? Moving to and from a A lot bed to a chair ( including a wheelchair)? Standing up from a A lot chair using your arms? (e.g., wheelchair, bedside chair) Walking in hospital Total room? Climbing 3-5 steps Total with a railing? Mobility Score 14 Mobility Level [facility] Mobility 4 Move to chair/commode Mobility Calculator Rehab PT IP Eval Objective Appearance Patient Behavior Appropriate,Cooperative Patient Orientation Person,Situation Difficulty following none instructions Speech Pattern Clear Ambulation Patient Able to No Ambulate Balance Ability to Arise Able, uses arms to help Sitting Balance Steady, safe Standing Balance Unsteady Rehab PT IP prob,goals,plan Problems Date of Evaluation: 12/07/24 Rehab Potential Rehab Potential Innapropriate for Skilled Therapy Discharge Plan PT Discharge Plan Pt appears to be at her baseline with mobility and reports she has all available equipment needed for mobility at home. PT recommending pt return home with continued 24/7 assistance provided by her . Eval Cee Eval Charge Codes 56176 - Moderate Complexity PHYSICIAN CERTIFICATION: I certify the specified therapy services for Eliz Pack Stien are required, authorized, and reviewed every 30 days.
[2024-12-07 10:30] LABS: Reflex Lactic (2 hrs) Add Lactic Reflex
[2024-12-07 10:36] LABS: Troponin I 0.04 ng/ml (0.00-0.034)
[2024-12-07] MEDS: SODIUM CHLORIDE 0.9% 10ML SYR (RAD ONLY) 10 ML IV (10:43)
[2024-12-07] MEDS: IOPAMIDOL-370 (76%);100ML BOTTLE 85 ML IV (10:43)
[2024-12-07] MEDS: 0.9 % SODIUM CHLORIDE 50 ML VIAL IV (10:43)
[2024-12-07 10:50] LABS: Lactic Acid Follow up (RFLX 2) 2.3 mmol/L (0.7-2.1)
[2024-12-07] MEDS: FUROSEMIDE 40 MG TABLET PO (11:22)
[2024-12-07] MEDS: dilTIAZem ER 120MG CAPSULE 120 MG PO (11:23)
[2024-12-07] MEDS: IRBESARTAN 150MG TAB 150 MG PO (11:23)
--- NOTE | 2024-12-07 11:34 | EXP.EVENT.NO ---
Ms. Sewell is a 49-year-old female who presented to the emergency department this morning with complaints of chest pain. She has a significant medical history of atrial fibrillation, VENTURA, insulin-dependent diabetes type 2, morbid obesity BMI 55, HFpEF, CAD. She states that she was waking up from sleeping with chest pain and palpitations, she called EMS who brought her to the emergency department. Patient was found to be in A-fib with RVR, heart rate 150s. After discussion of compliance with medications patient states she has taken all of her medications as prescribed. Patient was recently seen by cardiology who recommended a outpatient ischemia workup for angina symptoms. Patient blood pressure on arrival to the emergency department was 235/154. Patient received diltiazem bolus x 2 with heart rate improvement to the low 100s as well as improvement in blood pressure. She was also given nitroglycerin and aspirin. Troponins were elevated at 0.04 trending upward to 0.05. BNP slightly elevated at 556, glucose 412. Hospital medicine agreed to accept the patient and cardiology was consulted. BELLA Price assessed patient today who recommended a chest CT and left heart cath. Patient resumed her home dosing of diltiazem 300 mg daily. Holding Eliquis at this time for heart cath. Patient's vital signs have improved since admission, blood pressure 163/95, heart rate 74, rhythm atrial fibrillation. Repeat echo pending. CTA of chest shows no evidence of PE. Plans for cardiac cath and renals tomorrow per cardiology. Full code Diabetic diet, n.p.o. at midnight VTE?holding for heart cath PT/OT consulted
[2024-12-07 11:35] LABS: POC Glucose,Bedside 358 gm/dL (70-110)
--- NOTE | 2024-12-07 11:45 | SW/DCPLANNER ---
Spoke with Natacha at [facility] and Patient is still established with them. Bc Man[employer]
--- OUTSIDE RECORDS SUMMARY | 2024-12-07 13:12 | XMS_ITS | Clinical Summary ---
Author Organization [facility] Address [address] [place] [id number] Care Team Providers Care Orthotist Prosthetist Name Role Phone Carlos Dean MD Primary Care Provider [phone] Allergies No known active allergies Medications albuterol [...] times daily (with meals). Active folic acid/multivit,ir on,fraud examiner (CENTRUM PO) Take by mouth. Ac [...] Influenza Vaccination (#1) 2024 Insurance Care Teams Orthotist Prosthetist Relationship Specialty [place] [address] [place] [address] PCP - General Family Medicine 04/01/18
--- OUTSIDE RECORDS SUMMARY | 2024-12-07 13:12 | XMS_ITS | Clinical Summary ---
Author Organization Healthcare Address [address] [place] [address] Care Team Providers Care Carbon Coater Machine Operator Name Role Phone Carlos Dean MD Primary Care Provider [phone] Allergies No known active allergies Medications hydrALAZINE [...] week. Active ergocalciferol (Vitamin D-2) 1.25 MG (47197 UT) capsule Take 50,000 Units by mouth [...] Administration Dates Next Due Moderna COVID-19 Vaccine (Mophead Trimmer And Wrapper) 12+ years ,07/20/2020 Family History Medical History [...] 2024 UKY-Zoster Vaccines (1 of 2) 2024 [id number] Vaccine (3 - season) 2024 08/17/2020, 07/20/2020 [...] to complete this topic Insurance Care Teams Carbon Coater Machine Operator Relationship Specialty Start Date End Date Carlos Dean MD PCP - General 08/05/20
--- OUTSIDE RECORDS SUMMARY | 2024-12-07 13:13 | XMS_ITS | Clinical Summary ---
Author Organization [id number], [address] [place] [address] Care Team Providers Care Business Analytics Analyst Name Role Phone Carlos Dean MD Primary Care Provider [phone] Allergies No known active allergies Medications lisinopril [...] VENTRAL HERNIA REPAIR WITH MESH; Surgeon: Africa Gee MD; Location: [facility]; Service: General Medical devices from [...] 10/22/2019 10/21/2018 Hemoglobin A1c 04/13/2023 10/11/2022, 10/21/2018 Zoster (1 of 2) 2024 COVID-19 Vaccine ( - 2024- season) 2024 08/17/2020, 07/20/2020 Influenza Vaccine (#1) 2024 [facility]: eGFR 12/03/2024 12/04/2023, 10/24/2022, 10/22/2022, Additional history exists Meningococcal B Vaccine Aged Out No l onger eligible based on patient's age to complete this topic Medical Devices Implanted Type Area Cutter V Groove Device Identifier Shelf Expiration Date Model / Serial / Lot Matrix Tissue Strattice 6cm X 10cm [facility] - [id number] Implanted:Qty: 1 on 12/09/2009 at [facility] Abdomen LIFECELL 09/22/2010 [id number] / / [id number] Mesh Marlex 6 X 6 #[id number] - [id number] Implanted:Qty: 1 on 04/04/2015 by Africa Gee MD at [facility] N/A: Abdomen CR BARD:DAVOL 12/22/2018 [id number] / / [id number] Procedures Procedure Name Priority Date/Time Associated Diagnosis [...] 12/04/2023 8:10 AM EDT [facility] Calcium 8.5(L) 8.6 - 10.4 mg/dL 12/04/2023 8:10 AM EDT [facility] Glucose Lvl 251(H) 70 - 99 mg/dL 12/04/2023 8:10 AM EDT [facility] BUN 15 6 - 20 mg/dL 12/04/2023 8:10 AM EDT [facility] Creatinine 0.94 0.51 - 1.30 mg/dL 12/04/2023 8:10 AM EDT [facility] Albumin 3.6 3.5 - 5.2 gm/dL 12/04/2023 8:10 AM EDT [facility] Total Protein 5.9(L) 6.4 - 8.3 gm/dL 12/04/2023 8:10 AM EDT [facility] Bili Total 0.5 0.2 - 1.3 mg/dL 12/04/2023 8:10 AM EDT [facility] ALT 18 <=41 U/L 12/04/2023 8:10 AM EDT [facility], [facility] AST 17 <=40 U/L 12/04/2023 8:10 AM EDT [facility] Alk Phos 74 36 - 123 U/L 12/04/2023 8:10 AM EDT [facility], [facility] eGFR (CKD-EPIcr 2020) 74 >=60 mL/min/1.7 3 m2 12/04/2023 8:10 AM EDT [facility] Comment:Estimated GFR was ca lculated using the CKD-EPIcr (2020) equation refit without race. The equation is recommended by the National Kidney Foundation - [place] [employer] of Nephrology Task Force. Blood VENOUS BLOOD / Unknown Venipuncture / Unknown 12/04/2023 4:00 AM EDT 12/04/2023 6:56 AM EDT us Tang Catherine MD CHEMISTRY ORDERABLES Final Resu lt [facility] [address] , [place] [address] [facility] [address] [phone] * (ABNORMAL) HEMOGLOBIN A1C (10/11/2022 5:28 AM EDT) Pathologist [facility] Hgb A1C 9.5(H) 4.2 - 5.6 % 10/11/2022 8:36 AM EDT [facility] Est. Avg Glucose 226 mg/dL 10/11/2022 8:36 AM EDT [facility] Blood VENOUS BLOOD / Unknown Venipuncture / Unknown 10/11/2022 5:28 AM EDT 10/11/2022 7:05 AM EDT Narrative [facility] - 10/11/2022 8:36 AM EDT REFERENCE RANGE: Normal: 4.0-5.6% Pre-diabetes: 5.7-6.4% Provisional diagnosis of diabetes: >6.4% Hgb F>10% and anything which shortens red cell survival, such as hemolytic anemia, or unstable hemoglobin variants such as HbSS, HbSC, or HbCC, will lower the HbA1c value associated with a given level of glycemic control. [facility] CHEMISTRY ORDERABLES Pamela hector Result [facility] [employer], [facility] [address] , [place] [address] * (ABNORMAL) LIPID SCREEN (10/21/2018 5:57 AM EDT) Pathologist [facility] Cholesterol 132 <=200 mg/dL 10/21/2018 9:01 AM EDT [facility] [employer] Comment: < 200 Desirable 200 - 239 Borderline High >= 240 High Triglyceride 158(H) <=150 mg/dL 10/21/2018 9:[address] [facility] [address] [facility] Comment: < 150 Normal 150 - 199 Borderline High 200 - 499 High >= 500 Very High HDL 40 >=40 mg/dL 10/21/2018 9:01 AM EDT [facility] [employer] Comment: > 60 Optimal 40 - 60 Acceptable < 40 Low LDL Calculated 60 <=100 mg/dL 10/21/2018 9:01 AM EDT [employer], [employer] Comment: < 100 Optimal 100 - 129 Near or above optimal 130 - 159 Borderline High 160 - 189 High >= 190 Very High Non-HDL-C Calculated 92 <=129 mg/dL 10/21/2018 9:01 AM EDT [employer] Comment: <130 Desirable 130-159 Above Desirable 160-189 Borderline High 190-219 High >= 220 Very High Fasting Specimen? Yes None 019 9:01 AM EDT [employer] Blood VENOUS BLOOD / Unknown Venipuncture / Unknown 10/21/2018 5:57 AM EDT 10/21/2018 6:39 AM EDT Rocio Franklinalyssa Del Toro STAMPING MACHINE OPERATOR CHEMISTRY ORDERABLES Final Result [employer] [address] [facility] [address] , [place] [address] from Last 3 Months or Most Recently Relevant to Health Maintenance Insurance [employer] [place] [employer] [place] Advance Directives For more information, please contact: [phone] * Full Code (Latest Code Status on File) Date Activated Date Inactivated Comments 10/20/2018 11:25 PM 10/22/2018 7:12 PM * Full Code Date Activated Date Inactivated Comments 04/04/2015 5:16 PM 04/05/2015 6:42 PM Care Teams Business Analytics Analyst Relationship Specialty Start Date End Date Carlos Dean MD PCP - General 11/08/09
--- NOTE | 2024-12-07 13:21 | ECG_ITS ---
APPROVED REPORT Exam: Resting ECG HR:65 bpm ECG Measurements Heart Rate 65 AXES NV 172 P 64 QRSd 88 QRS -35 QT 464 T 80 QTc 475 Conclusion SINUS RHYTHM LEFT AXIS DEVIATION [QRS AXIS < -30] LOW QRS VOLTAGE IN PRECORDIAL LEADS [QRS DEFLECTION < 1.0 mV IN CHEST LEADS] POSSIBLE ANTERIOR MYOCARDIAL INFARCTION , OF INDETERMINATE AGE [30 ms Q WAVE IN V3/V4, OR R < 0.2 mV IN V4] ABNORMAL ECG UNCONFIRMED REPORT Electronically signed by : Jude Betancur MD 12/08/2024 08:44:09
[2024-12-07] MEDS: HYDRALAZINE HCL 25MG TABLET 100 MG PO ×2 (13:24→20:21)
[2024-12-07 16:51] LABS: POC Glucose,Bedside 299 gm/dL (70-110)
--- NOTE | 2024-12-07 18:14 | PC.NURSE ---
pt is A&Ox4. pt had an echo done this morning and after getting results back, consulted with cardiology. she will have a left heart cath tomorrow. consent has been signed. pt will be npo after midnight tonight. pt has no other concerns at this time. call light is within reach.
[2024-12-07] MEDS: ATORVASTATIN 40MG TABLET 40 MG PO (20:21)
[2024-12-07] MEDS: HYDROCODONE/APAP 5/325 MG TABLET 1 TAB PO (20:21)
[2024-12-08] VITALS (19 sets, daily range): BP systolic 95–161; BP diastolic 36–74; PULSE 50–76; RESP 12–20; TEMP 36.4–36.7; O2SAT 86–98; BMI 54.3
[2024-12-08] MEDS: humaLOG 100 UNITS/ML 10ML VIAL (SSI) SUBCUT ×3 (05:26→16:51)
[2024-12-08 06:30] LABS: Hematocrit 37.7 % (37.0-47.0); Hemoglobin 12.0 g/dL (12.2-16.2); Immature Granulocytes % 0.8 %; Mean Corpuscular HGB Conc 31.8 g/dL (31.8-35.4); Mean Corpuscular Hemoglobin 27.0 pg (27.0-31.2); Mean Corpuscular Volume 84.9 fl (81-99); Nucleated Red Blood Cells % 0 %; Platelet Count 236 K/mm3 (142-424); Red Blood Count 4.44 M/mm3 (4.20-5.40); Red Cell Distribution Width-SD 43.4 fL; White Blood Count 10.4 K/mm3 (4.8-10.8)
[2024-12-08 06:48] LABS: Anion Gap 13.4 mEq/L (5-15); Blood Urea Nitrogen 33 mg/dl (7-17); Calcium 8.7 mg/dl (8.4-10.2); Carbon Dioxide 26 mmol/L (22.0-30.0); Chloride 98 mmol/L (98-107); Creatinine Clearance Estimated 48 mL/min (50-200); Creatinine,Serum 1.30 mg/dl (0.52-1.04); Estimated Glomerular Filt Rate 43 ml/min (>60); GFR (African American) 52 ML/MIN (>60); Potassium 4.4 mmoL/L (3.5-5.1); Sodium 133 mmol/L (136-145)
[2024-12-08 06:53] LABS: Glucose 413 mg/dl (74-100)
--- NOTE | 2024-12-08 07:21 | IR_ITS ---
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 COMPLICATIONS NONE Estimated Blood Loss: LESS THAN 10 ML TECHNIQUE One percent lidocaine used to anesthetize the right anterior and medial aspect of the wrist. The right ulnar artery was accessed via the Seldinger technique. A 6 Mongolian sheath was placed in the right ulnar artery. 2.5 mg of Verapamil, 800 mcg of nitroglycerin, 1mg Lidocaine and 5000 U Heparin were given through the arterial sheath. The Poppa catheter was also used to perform left heart catheterization, left ventriculogram and selective coronary angiogram. At the end the diagnostic angiogram therapeutic Was administered giving a therapeutic ACT and the guide catheter was placed in left main artery followed by Choice PT extra-support wire down the LAD. Intravascular ultrasound probe was advanced and interrogation of the proximal to mid LAD occurred. There was mild to moderate plaque in the proximal LAD with no MLA less than 4 mm???. Because there was not a heavy plaque burden the apparatus was removed and the same catheter was used to perform bilateral selective renal angiography. At the end the procedure the apparatus was removed the sheath was removed good hemostasis was achieved using TR banding patient was transferred to the postoperative in stable condition ANGIOGRAPHIC RESULTS The left main artery Normal The left anterior descending artery Has proximal and mid vessel 30 to 40% stenosis The circumflex artery Large dominant normal mild 10% luminal regularities The right coronary artery Vestigial normal The ROSA ventriculogram reveals Normal 60% The left ventricular end-diastolic pressure Severe to critically elevated at 45 mmHg Right renal artery has a dual arterial supply with both arteries normal Left renal artery has dual arterial supply with both arteries normal IMPRESSION Mild to moderate proximal to mid LAD disease as described above Normal ejection fraction Severe to critically elevated LVEDP Normal renal arteries PLAN 1. Medical management for coronary artery disease with aggressive risk factor modification 2. Recommend aggressive diuresis to decrease LVEDP 3. Recommend sleep study Electronically signed by : Smith Santana MD 12/08/2024 14:20:49
[2024-12-08] MEDS: ASPIRIN 81MG CHEWABLE TABLET 81 MG PO (08:07)
[2024-12-08] MEDS: FUROSEMIDE 40 MG TABLET PO (08:09)
[2024-12-08] MEDS: dilTIAZem ER 120MG CAPSULE 120 MG PO (08:09)
[2024-12-08] MEDS: HYDRALAZINE HCL 25MG TABLET 100 MG PO ×2 (08:10→15:02)
[2024-12-08] MEDS: VENLAFAXINE 37.5MG TABLET 37.5 MG PO (08:11)
[2024-12-08] MEDS: IRBESARTAN 150MG TAB 150 MG PO (08:11)
[2024-12-08] MEDS: METOPROLOL SUCCINATE XL 25MG TABLET 25 MG PO (08:11)
[2024-12-08] MEDS: INSULIN GLARGINE 100 UNITS/ML 3ML FLEXPEN 25 UNIT SUBCUT (08:36)
[2024-12-08] MEDS: dilTIAZem ER 180 MG CAPSULE PO (08:38)
--- NOTE | 2024-12-08 10:57 | P.PN_ITS ---
Subjective Subjective Date: 12/08/24 Time: 10:58 Principal diagnosis: chest pain Interval history: 49-year-old white female in bed in no acute distress. Some mild chest discomfort noted overnight. CTA of the chest yesterday was negative for PE. Proceed with left heart cath today. Exam Data for Last 24 hours Vital signs and Labs for Last 24 Hours: Temp Pulse Resp BP Pulse Ox O2 Del Method 97.7 F 50 L 18 161/61 H 97 Room Air 12/08/24 07:34 12/08/24 08:00 12/08/24 07:34 12/08/24 07:34 12/08/24 08:00 12/08/24 09:00 Laboratory Results - last 24 hr 12/07/24 11:25: POC Glucose 358 H* 12/07/24 16:39: POC Glucose 299 H 12/08/24 05:56: WBC 10.4, RBC 4.44, Hgb 12.0 L, Hct 37.7, MCV 84.9, MCH 27.0, MCHC 31.8, RDW 14.2, Plt Count 236, MPV 9.7, Neut % (Auto) 78.0, Lymph % (Auto) 13.2, Wilcox % (Auto) 5.4, Eos % (Auto) 2.1, Baso % (Auto) 0.5, Neut # (Auto) 8.1 H, Lymph # (Auto) 1.4, Wilcox # (Auto) 0.6, Eos # (Auto) 0.2, Baso # (Auto) 0.1, Sodium 133 L, Potassium 4.4, Chloride 98, Carbon Dioxide 26, Anion Gap 13.4, BUN 33 H D, Creatinine 1.30 H D, Estimated Creat Clear 48, Estimated GFR 43 L, Est GFR ( Amer) 52 L D, Glucose 413 H*, Calcium 8.7 I & O for Last 24 hours: Intake & Output 12/05/24 12/06/24 12/07/24 12/08/24 11:59 11:59 11:59 11:59 Intake Total 600 / 600 1300 / 1300 Output Total 625 / 625 Balance 600 / 600 675 / 675 Weight 350 lb 345 lb 14.4 oz Constitutional Constitutional: no acute distress *Routine Respiratory Exam Respiratory: Present decreased breath sounds and CTA bilaterally *Routine Cardiovascular Exam Cardiovascular: Present RRR; Absent murmur, gallop or rubs *Routine Extremities Exam Extremities: Present edema Progress Note: A&P Assessment and plan (1) Atrial fibrillation with RVR: Status: Acute (2) Morbid obesity: Status: Acute (3) Elevated troponin: Status: Acute (4) (HFpEF) heart failure with preserved ejection fraction: Status: Acute (5) VENTURA (obstructive sleep apnea): Status: Chronic (6) HLD (hyperlipidemia): Status: Chronic (7) Diabetes mellitus: Status: Chronic Assessment and Plan Assessment and Plan for All Diagnoses:: 1. A-fib with RVR -Chest CTA negative for pulmonary embolus -on diltiazem 300 mg daily -Holding Eliquis at this time for cardiac cath 2. Chest pain with mildly elevated troponins, concern for non-ST elevation SD versus strain from the A-fib - Echo shows EF 55-60% with increased LV wall thickness - getting cardiac catheterization today - Known mild CAD by cardiac cath June 2022 at [facility] 3. Hypertension emergency on admit -Normal renals, 2018 -Improved on home medication -Echo confirms increased LV wall thickness with normal EF 4. HFpEF -GDMT with metoprolol, losartan, furosemide in addition to hydralazine and diltiazem -No SGLT2 inhibitor due to history of pancreatitis -on lasix -spironolactone being given PRN 5. Diabetes mellitus with long-term insulin use -Hemoglobin A1c 8.6 on 10/26/2024 6. Morbid obesity with BMI 54.9 ANGIOGRAPHIC RESULTS The left main artery Normal The left anterior descending artery Has proximal and mid vessel 30 to 40% stenosis The circumflex artery Large dominant normal mild 10% luminal regularities The right coronary artery Vestigial normal The ROSA ventriculogram reveals Normal 60% The left ventricular end-diastolic pressure Severe to critically elevated at 45 mmHg Right renal artery has a dual arterial supply with both arteries normal Left renal artery has dual arterial supply with both arteries normal IMPRESSION Mild to moderate proximal to mid LAD disease as described above Normal ejection fraction Severe to critically elevated LVEDP Normal renal arteries PLAN 1. Medical management for coronary artery disease with aggressive risk factor modification 2. Recommend aggressive diuresis to decrease LVEDP 3. Recommend sleep study Electronically signed by : Smith Santana MD 12/08/2024 14:20:49 OK to discharge home when ready. Follow-up in our office in 1 week with BMP and Mag. Home med recommendations: Resume Apixaban 5 mg twice daily Atorvastatin 40 mg daily diltiazem 1 CD3 100 mg daily Hydralazine 100 mg 3 times daily Losartan 100 mg daily Metoprolol 50 mg daily (new dose) Resume Spironolactone 50 mg BID Resume Furosemide 40 mg BID
[2024-12-08 11:48] LABS: POC Glucose,Bedside 446 gm/dL (70-110)
[2024-12-08 11:50] LABS: POC Glucose,Bedside 394 gm/dL (70-110)
[2024-12-08 12:06] LABS: POC Glucose,Bedside 307 gm/dL (70-110)
[2024-12-08 12:22] LABS: POC Glucose,Bedside 400 gm/dL (70-110)
[2024-12-08] MEDS: LIDOCAINE 1% 10ML MDV 10 ML IJ (13:25)
[2024-12-08] MEDS: HEPARIN 1,000 UNITS/ML 10ML VIAL (CATH LAB) 5000 UNIT IV ×2 (13:25→14:01)
[2024-12-08] MEDS: VERAPAMIL 2.5MG/ML 2ML VIAL 2.5 MG IV (13:25)
[2024-12-08] MEDS: NITROGLYCERIN 800MCG/8ML SYR (CATH LAB) 800 MCG IA (13:25)
[2024-12-08] MEDS: HEPARIN 1,000 UNITS/500ML NS (CATH LAB) 3000 UNIT IV (13:26)
[2024-12-08] MEDS: 0.9 % SODIUM CHLORIDE 500 ML 25 ML IV (13:27)
[2024-12-08] MEDS: FENTANYL 100MCG/2ML VIAL 50 MCG IV (14:11)
[2024-12-08] MEDS: MIDAZOLAM HCL 1MG/ML 5ML VIAL 1 MG IV (14:11)
[2024-12-08] MEDS: IOPAMIDOL-370 (76%);100ML BOTTLE 90 ML IV (14:37)
--- NOTE | 2024-12-08 15:52 | P.DS_ITS ---
<Statement entered by Mahamed Benavides MD - 12/08/24 17:34> Rounded on patient after nurse practitioner. Personally examined and interviewed patient. Agree with exam findings and care plan as documented. General Admission date:: 12/07/24 Discharge date: 12/08/24 HPI HPI HPI: This is a 49-year-old female past medical history of atrial fibrillation, VENTURA, DM 2, morbid obesity, HFpEF, CAD, who presents emergency department today with chest pain and palpitations. She reports waking up from sleep with chest pain and palpitations. she did call 911 and EMS reporting about her health [facility]. She declined EMS transport but brought her ECG tracing from EMS with her which showed A-fib with RVR with heart rate in the 150s. She reports being compliant with home medications. States she has felt generally unwell recently but denies any fevers chills or nausea. Denies any dizziness or syncope. She recently had an appoint with Zuri lomeli with cardiology who recommended stress testing in the near future for ongoing angina symptoms not completed this test. Upon arrival to emergency department she was noted to be in atrial fibrillation with RVR with a heart rate of 176 as well as significant hypertension with systolic blood pressure of 235/154. She received diltiazem bolus in the emergency department times x 2 with improvement in heart rate to the low 100s as well as improvement in blood pressure. She was also medicated with nitroglycerin and aspirin. Laboratory evaluation notable for mildly elevated troponin 0.04, glucose of 412 with mildly elevated anion gap of 16 but normal CO2. BNP of 556. Given her extensive medical history and presentation with A-fib with RVR and hypertension it is felt she would benefit from hospitalization. She is admitted to the hospital service at this time. Hospital Course Hospital Course Hospital Course: Ms. Sewell is a 49-year-old female who presented to the emergency department yesterday morning with complaints of chest pain. She has a significant medical history of atrial fibrillation, VENTURA, insulin-dependent diabetes type 2, morbid obesity BMI 55, HFpEF, CAD. She states that she was waking up from sleeping with chest pain and palpitations, she called EMS who brought her to the emergency department. Patient was found to be in A-fib with RVR, heart rate 150s. Interactive discussion of compliance with medications, patient states she has taken all of her medications as prescribed. Patient was recently seen by cardiology who recommended a outpatient ischemia workup for angina symptoms. Patient blood pressure on arrival to the emergency department was 235/154. Patient received diltiazem bolus x 2 with heart rate improvement to the low 100s as well as improvement in blood pressure. She was also given nitroglycerin and aspirin. Troponins were elevated at 0.04 trending upward to 0.05. BNP slightly elevated at 556, glucose 412. Hospital medicine agreed to accept the patient and cardiology was consulted. Cardiology recommended chest CTA to rule out PE, which was negative. Patient had left heart cath today, report states mild to moderate proximal to mid LAD disease is noted, normal EF, severe to critical elevated LVEDP, normal renal arteries. Recommendations were made for a sleep study in the outpatient setting. Per cardiology's recommendation patient can be discharged home, she has remained hemodynamically stable. Discussed with patient the importance of no heavy lifting or pushing with her right wrist per cardiology post-cath guidelines. Patient primarily uses her wheelchair, she states she understands. at bedside provides her assistance as well. Patient has converted back to sinus rhythm, heart rate has been regular between 50-60. per cardiology recommendations continue Eliquis 5 mg twice daily, atorvastatin 40 mg daily, diltiazem extended release 300 mg daily, hydralazine 100 mg 3 times daily, and losartan 100 mg daily. Increasing metoprolol 25 mg daily to 50 mg daily. Increasing Lasix 40 mg to twice daily and spironolactone 50 mg to twice daily. Patient should follow-up with cardiology within 1 week for a recheck of a BMP and magnesium level. Discussed the importance of medication compliance with the patient, her and her spouse state they understand the need for taking medication directly as prescribed. Patient hyperglycemic during admission, patient following with endocrinology at [facility]. Recently transition to a OmniPod for insulin. Discussed with patient the need to follow-up with endocrinology for further recommendations of glucose control. A1c in October 2024 was 8.6%. Patient is morbidly obese, BMI 54. She is largely bedbound, with occasional use wheelchair use. 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 She states she has tried to eat better and is following with endocrinology. Encourage patient to continue with endocrinology and work towards weight loss goals. Total time spent on discharge 37 minutes in counseling, documentation, chart review, and direct care with patient. Exam Data for Last 24 hours Vital signs and Labs for Last 24 Hours: Temp Pulse Resp BP Pulse Ox O2 Del Method 97.5 F L 56 L 18 114/56 L 90 L Room Air 12/08/24 14:45 12/08/24 15:30 12/08/24 15:30 12/08/24 15:30 12/08/24 15:30 12/08/24 15:30 Laboratory Results - last 24 hr 12/07/24 06:12: POC Glucose 394 H* 12/07/24 16:39: POC Glucose 299 H 12/07/24 20:17: POC Glucose 307 H* 12/08/24 05:18: POC Glucose 446 H* 12/08/24 05:56: WBC 10.4, RBC 4.44, Hgb 12.0 L, Hct 37.7, MCV 84.9, MCH 27.0, MCHC 31.8, RDW 14.2, Plt Count 236, MPV 9.7, Neut % (Auto) 78.0, Lymph % (Auto) 13.2, Bennett % (Auto) 5.4, Eos % (Auto) 2.1, Baso % (Auto) 0.5, Neut # (Auto) 8.1 H, Lymph # (Auto) 1.4, Bennett # (Auto) 0.6, Eos # (Auto) 0.2, Baso # (Auto) 0.1, Sodium 133 L, Potassium 4.4, Chloride 98, Carbon Dioxide 26, Anion Gap 13.4, BUN 33 H D, Creatinine 1.30 H D, Estimated Creat Clear 48, Estimated GFR 43 L, Est GFR ( Amer) 52 L D, Glucose 413 H*, Calcium 8.7 12/08/24 11:34: POC Glucose 400 H* I & O for Last 24 hours: Intake & Output 12/05/24 12/06/24 12/07/24 12/08/24 23:59 23:59 23:59 23:59 Intake Total 1600 / 1900 300 / 300 Output Total 225 / 225 750 / 750 Balance 1375 / 1675 -450 / -450 Weight 158.757 kg 156.898 kg Results Data Completed and Pending Labs on day of discharge: Labs from last 24 hours 12/08/24 12/08/2412/08/25 11:34 05:56 05:18 WBC 10.4 RBC 4.44 Hgb 12.0 L Hct 37.7 MCV 84.9 MCH 27.0 MCHC 31.8 RDW 14.2 Plt Count 236 MPV 9.7 Neut % (Auto) 78.0 Lymph % (Auto) 13.2 Bennett % (Auto) 5.4 Eos % (Auto) 2.1 Baso % (Auto) 0.5 Neut # (Auto) 8.1 H Lymph # (Auto) 1.4 Bennett # (Auto) 0.6 Eos # (Auto) 0.2 Baso # (Auto) 0.1 Sodium 133 L Potassium 4.4 Chloride 98 Carbon Dioxide 26 Anion Gap 13.4 BUN 33 H D Creatinine 1.30 H D Estimated Creat Clear 48 Estimated GFR 43 L Est GFR ( Amer) 52 L D Glucose 413 H* POC Glucose 400 H* 446 H* Calcium 8.7 12/07/24 12/07/24 12/07/24 20:17 16:39 06:12 WBC RBC Hgb Hct MCV MCH MCHC RDW Plt Count MPV Neut % (Auto) Lymph % (Auto) Bennett % (Auto) Eos % (Auto) Baso % (Auto) Neut # (Auto) Lymph # (Auto) Bennett # (Auto) Eos # (Auto) Baso # (Auto) Sodium Potassium Chloride Carbon Dioxide Anion Gap BUN Creatinine Estimated Creat Clear Estimated GFR Est GFR ( Amer) Glucose POC Glucose 307 H* 299 H 394 H* Calcium DS: Diagnosis Discharge Diagnosis (1) Atrial fibrillation with RVR: Status: Acute Code(s): I48.91 - Unspecified atrial fibrillation (2) Morbid obesity: Status: Acute Code(s): E66.01 - Morbid (severe) obesity due to excess calories (3) Elevated troponin: Status: Acute Code(s): R79.89 - Other specified abnormal findings of blood chemistry (4) (HFpEF) heart failure with preserved ejection fraction: Status: Acute Code(s): I50.30 - Unspecified diastolic (congestive) heart failure Qualifiers: Heart failure chronicity: acute on chronic Qualified Code(s): I50.33 - Acute on chronic diastolic (congestive) heart failure (5) VENTURA (obstructive sleep apnea): Status: Chronic Code(s): G47.33 - Obstructive sleep apnea (adult) (pediatric) (6) HLD (hyperlipidemia): Status: Chronic Code(s): E78.5 - Hyperlipidemia, unspecified Qualifiers: Hyperlipidemia type: mixed hyperlipidemia Qualified Code(s): E78.2 - Mixed hyperlipidemia (7) Diabetes mellitus: Status: Chronic Code(s): E11.9 - Type 2 diabetes mellitus without complications Qualifiers: Diabetes mellitus type: type 2 Diabetes mellitus alf insulin use: unspecified alf insulin use status Diabetes mellitus complication status: with other specified complication Qualified Code(s): E11.69 - Type 2 diabetes mellitus with other specified complication Meds Home Medications and Allergies Home Medications ?Medication ?Instructions ?Recorded ?Confirmed ?Type apixaban 5 mg tablet 5 mg PO BID atrial fibrillat ion 30 06/01/24 12/07/24 Rx days #60 tabs desvenlafaxine succinate 50 mg 50 mg PO DAILY #90 tabs 06/01/24 12/07/24 Rx tablet,extended release 24 hr (Pristiq) losartan 100 mg tablet 100 mg PO DAILY #90 tabs 01/1612/07/24 Rx blood-glucose transmitter (Dexcom #1 ea 06/17/2412/07 History G6 Transmitter device) hydralazine 100 mg tablet 100 mg PO TID #90 tabs 10/2612/07/24 Rx insulin aspart U-100 100 unit/mL 0 unit SQ DIRECTED 11/03/24 12/07/24 History subcutaneous solution insulin pump cart,auto,BT,G6/7 11/03/24 12/07/24 Hist ory (Omnipod 5 G6-G7 Pods (Gen 5) subcutaneous cartridge) lancets 28 gauge (FreeStyle 11/03/24 12/07/24 History Lancets) atorvastatin 40 mg tablet 40 mg PO HS 30 days #90 tabs 11/24/24 12/07/24 Rx blood sugar diagnostic (FreeStyle #10 ea 11/24/2411/23 History Lite Strips) blood-glucose meter (FreeStyle #1 ea 11/24/24 12/07/24 History Lite Meter kit) blood-glucose,organizational development manager,cont #1 ea 11/24/24 12/07/24 Hi story (Dexcom G7 Assistant Media Planner) spironolactone 50 mg tablet 50 mg PO BID PRN Fluid #60 tabs 11/24/24 12/07/24 Rx Dexcom G7 Sensor (blood-glucose #3 ea 12/04/24 5 Rx sensor) pen needle, diabetic 31 gauge x #100 ea 12/04/2412/07 Rx 1/4 (Pen Needle) hydrocodone 5 mg-acetaminophen 325 1 tab PO TIDP PRN S evere Pain 12/07/24 12/07/24 History mg tablet (Scale Score 7-10) insulin regular hum U-500 conc 500 0 unit SQ DIRECT ED 12/07/24 12/07/24 History unit/mL(3 mL) subcut pen trazodone 150 mg tablet 150 mg PO HS PRN Sleep 12/0712/07/24 History diltiazem HCl 300 mg 300 mg PO DAILY 30 days #90 caps 12/08/24 12/07/24 Rx capsule,extended release 24 hr furosemide 40 mg tablet (Lasix) 40 mg PO BID 30 days # 30 tabs 12/08/24 12/07/24 Rx metoprolol succinate 50 mg 50 mg PO DAILY 30 days #30 tabs 12/08/24 Rx tablet,extended release 24 hr (Toprol XL) New Prescriptions to Start Prescriptions: metoprolol succinate [Toprol XL] Estefani Thomson Allergies Allergy/AdvReac Type Severity Reaction Status Date / Time No Known Allergies Allergy Verified 12/03/24 13:31 Discharge Plan Disposition Patient Disposition: Home, Self-Care Condition: Fair Discharge Order Discharge Orders: Discharge Order (Routine); Ordered 12/08/24 Ordered By: Estefani Thomson Follow up Plan Follow up with: Zuri Reddy APRN [Nurse Practitioner, Cardiology] - 12/15/24 1:45 pm Carlos Dean MD [Primary Care Provider, Family Practice] - 12/16/24 1:00 pm Prescriptions/Medication Reconciliation: New metoprolol succinate [Toprol XL] 50 mg Tablet Extended Release 24 Hr 50 mg PO DAILY 30 Days Qty: 30 0RF Continued apixaban 5 mg tablet 5 mg PO BID 30 Days Qty: 60 10RF desvenlafaxine succinate [Pristiq] 50 mg tablet extended release 24 hr 50 mg PO DAILY Qty: 90 3RF losartan 100 mg tablet 100 mg PO DAILY Qty: 90 3RF hydralazine 100 mg tablet 100 mg PO TID Qty: 90 3RF (DME) Dexcom G6 Transmitter Device See Rx Instructions .ROUTE .MEDSUPPLY Qty: 1 Rx Instructions: As directed (DME) FreeStyle Lite Strips Strip See Rx Instructions .ROUTE .MEDSUPPLY Qty: 10 Rx Instructions: As directed (DME) blood-glucose meter [FreeStyle Lite Meter] Kit See Rx Instructions .ROUTE .MEDSUPPLY Qty: 1 Rx Instructions: As directed (DME) Dexcom G7 Assistant Media Planner Misc See Rx Instructions .ROUTE .MEDSUPPLY Qty: 1 Patient Comments: DIRECTED Rx Instructions: As directed atorvastatin 40 mg tablet 40 mg PO HS 30 Days Qty: 90 0RF spironolactone 50 mg tablet 50 mg PO BID PRN (Reason: Fluid) Qty: 60 5RF (DME) pen needle, diabetic [Pen Needle] 31 gauge x 1/4 needle See Rx Instructions .Route Qty: 100 5RF Rx Instructions: As directed (DME) Dexcom G7 Sensor Device MISCELLANEOUS Qty: 3 11RF Rx Instructions: Use 1 sensor for every 10 days insulin aspart U-100 100 unit/mL solution 0 unit SQ DIRECTED Rx Instructions: SLIDING SCALE (DME) lancets [FreeStyle Lancets] 28 gauge misc MISCELLANEOUS (DME) Omnipod 5 G6-G7 Pods (Gen 5) Cartridge SQ trazodone 150 mg tablet 150 mg PO HS PRN (Reason: Sleep) hydrocodone-acetaminophen 5-325 mg tablet 1 tab PO TIDP PRN (Reason: Severe Pain (Scale Score 7-10)) insulin regular hum U-500 conc 500 unit/mL (3 mL) insulin pen 0 unit SQ DIRECTED Rx Instructions: Take 100 units BID, with a max total daily dose of 240 units diltiazem HCl 300 mg capsule,extended release 24hr 300 mg PO DAILY 30 Days Qty: 90 3RF Changed furosemide [Lasix] 40 mg tablet 40 mg PO BID 30 Days Qty: 30 0RF Discontinued metoprolol succinate 25 mg tablet extended release 24 hr 25 mg PO DAILY Qty: 90 0RF Ozempic 0.25 mg or 0.5 mg (2 mg/3 mL) pen injector 0.25 mg SQ WEEKLY Patient Comments: INJECT 0.25 MG (0.368 ML) SUBCUTANEOUSLY ONCE WEEKLY Problem Reconciliation Problems Reviewed?: Yes Patient Discharge Instructions ACTIVITY: No heavy lifting DIET: continue same diet and diabetic diet Patient Instructions: High Triglycerides (Alternative Therapy), Cardiac Catheterization, DI for Atrial Fibrillation, DI for Obesity -- Adult, DI for Chest Pain, Surgical Site Infection, DI for Moderate Sedation Print Language: Bulgarian Providers Primary Care Provider: Carlos Dean Provider: Doug Cueto Attending Provider: Doug Cueto
[2024-12-08 17:06] LABS: POC Glucose,Bedside 260 gm/dL (70-110)
--- NOTE | 2024-12-08 19:47 | PC.NURSE ---
Patient left floor with staff for home at 19:47.
--- NOTE | 2024-12-10 10:33 | SW/DCPLANNER ---
Phoned patient x2. Left message with name and a call back number each time. Bc [facility]
== END 2024-12-08 19:47 | disposition home or self-care (01) | DRG 287 ==
LOC: ER 05:09 → 2ND 05:31
PROVIDERS: Internal Medicine; Nurse Practitioner Acute Care; Admitting Provider Student in an Organized Health Care Education/Training Program; Emergency Provider Emergency Medicine; PCP Family Medicine; Visit Provider Student in an Organized Health Care Education/Training Program
PROC: 4A023N7 Measurement of Cardiac Sampling and Pressure, Left Heart, Percutaneous Approach (ICD-10-PCS; CPT 93452; principal; 2024-12-08 13:00)
PROC: 4A023N7 Measurement of Cardiac Sampling and Pressure, Left Heart, Percutaneous Approach (ICD-10-PCS; 2024-12-08 13:00)
DX: I48.0 Paroxysmal atrial fibrillation (principal); I16.1 Hypertensive emergency; Z68.43 Body mass index [BMI] 50.0-59.9, adult; I50.32 Chronic diastolic (congestive) heart failure; I25.10 Atherosclerotic heart disease of native coronary artery without angina pectoris; I11.0 Hypertensive heart disease with heart failure; E66.01 Morbid (severe) obesity due to excess calories; G47.33 Obstructive sleep apnea (adult) (pediatric); E11.65 Type 2 diabetes mellitus with hyperglycemia; E11.69 Type 2 diabetes mellitus with other specified complication; E78.2 Mixed hyperlipidemia; R79.89 Other specified abnormal findings of blood chemistry; Z87.891 Personal history of nicotine dependence; Z89.511 Acquired absence of right leg below knee; Z79.4 Long term (current) use of insulin; Z79.01 Long term (current) use of anticoagulants; Z79.899 Other long term (current) drug therapy
CPT/HCPCS: 36415; 71045; 71275; 80048; 80053; 80061; 81001; 82009; 82803; 82962; 83605; 83735; 83880; 84100; 84443; 84484; 85025; 85378; 85610; 93005; 93308; 97162; 99152; 99153; 99285; C1725; C1760; C1769; J1200; J1644; J2003; J2250; J2405; J3010; J3475; J7040; J7120; Q9957; Q9967

== ENCOUNTER 2024-12-15 15:06 | Outpatient (CLI) | payer MEDICAID, SELFPAY ==
--- OUTSIDE RECORDS SUMMARY | 2022-10-10 05:00 | XMS_ITS | Encounter Summary ---
Author Organization [place] [address] Care Team Providers Care Pharmacist Aide Name Role Phone Carlos Dean MD Primary Care Provider [phone] Encounter Details Date Type Department Care Team (Latest Contact Info) Description 10/10/2022 5:00 AM EDT Hospital Encounter [facility] Referral Lab 1 [place] [address] Encounter for general adult medical examination without abnormal findings Social History Tobacco Use Types Packs/Day Years Used Date Smoking Tobacco: Former Cigarettes 0.3 23.1 0 07/05/1994 - 08/23/2017 Smokeless Tobacco: Never Alcohol Use Standard Drinks/Week Comments Yes 0 (1 standard drink = 0.6 oz pur e alcohol) occ Comments No Sex and Gender Information Value [...] No 04/05/2015 1:44 PM Robert Carranza RN documented as of this encounter Mental Status * Because of a physical, mental or emotional condition, does this person have serious difficulty concentrating, remembering or making decisions? Answer Entry Date Author No 04/05/2015 1:44 PM Robert Carranza RN documented in this encounter Plan of Treatment Not on file documented as of this encounter Results * [...] 10/10/2022 6:27 AM EDT [facility] MPV 9.0 8.8 - 12.5 fL 10/10/2022 6:27 AM EDT [facility] Neut Percent 69.7 % 10/10/2022 6:[address] [facility] Comment:Neutrophils equals s egs plus bands Imm Gran% 2.6 % 10/10/2022 6:27 AM EDT [facility] Comment:Automated count of m etamyelocytes, myelocytes and promyelocytes. IG >1% represents a left shift and provides an early indication of an infection or inflammatory process. Lymph Percent 17.1 % 10/10/2022 6:27 AM EDT [facility] [place] Percent 6.6 % 10/10/2022 6:27 AM EDT [facility] Eos Percent 3.5 % 10/10/2022 6:27 AM EDT [facility] Baso Percent 0.5 % 10/10/2022 6:[address] [facility] Neut # 8.2(H) 1.6 - 6.1 x10(3)/[facility] 10/10/2022 6:[address] [facility] Comment:Neutrophils equals s egs plus bands IMMGRAN# 0.3(H) 0.0 - 0.1 x10(3)/[facility] 10/10/2022 6:[address] [facility] Comment:Automated count of m etamyelocytes, myelocytes and promyelocytes. An absolute IG <0.1 is reported as 0.0. Lymph # 2.0 1.2 - 3.9 x10(3)/[facility] 10/10/2022 6:27 AM EDT [facility] [place] # 0.8 0.3 - 0.9 x10(3)/[facility] 10/10/2022 6:27 AM EDT [facility] Eos# 0.4 0.0 - 0.5 x10(3)/[facility] 10/10/2022 6:27 AM EDT [facility] Baso # 0.1 0.0 - 0.1 x10(3)/[facility] 10/10/2022 6:[address] [facility] Blood VENOUS BLOOD / Unknown Venipuncture / Unknown 10/10/2022 5:38 AM EDT 10/10/2022 6:08 AM EDT us Unknown Provider HEMATOLOGY ORDERABLES Final Res ult [facility] [employer] [address] [facility] , [place] [address] documented in this encounter Visit Diagnoses Diagnosis Encounter for general adult medical examination without abnormal findings Routine general medical examination at a health care facility documented in this encounter Care Teams Pharmacist Aide Relationship Specialty Start Date End Date Carlos Dean MD PCP - General 11/08/09 documented as of this encounter
--- OUTSIDE RECORDS SUMMARY | 2022-10-10 05:00 | XMS_ITS | Encounter Summary ---
Author Organization [place] [address] Care Team Providers Care Balance Wheel Screw Hole Tapper Name Role Phone Carlos Dean MD Primary Care Provider [phone] Encounter Details Date Type Department Care Team (Latest Contact Info) Description 10/10/2022 5:00 AM EDT Hospital Encounter [facility] Referral Lab 1 [place] [address] Encounter for general adult medical [...] - 40.0 mg/dL 10/10/2022 8:46 AM EDT [employer] Blood VENOUS BLOOD / Unknown Venipuncture / Unknown 10/10/2022 5:38 AM EDT 10/10/2022 6:08 AM EDT us Unknown Provider CHEMISTRY ORDERABLES Final Resu lt [facility] [address] [place] [address] , [place] [address] documented in this encounter Visit Diagnoses Diagnosis Encounter for general adult medical examination without abnormal findings Routine general medical examination at a health care facility documented in this encounter Care Teams Balance Wheel Screw Hole Tapper Relationship Specialty Start Date End Date Carlos Dean MD PCP - General 11/08/09 documented as of this encounter
--- OUTSIDE RECORDS SUMMARY | 2022-10-11 05:00 | XMS_ITS | Encounter Summary ---
Author Organization [place] [address] Care Team Providers Care Acoustics Teacher Name Role Phone Carlos Dean MD Primary Care Provider [phone] Encounter Details Date Type Department Care Team (Latest Contact Info) Description 10/11/2022 5:00 AM EDT Hospital Encounter [facility] Referral Lab 1 [place] [address] Encounter for general adult medical [...] METABOLIC PANEL (10/11/2022 5:28 AM EDT) Pathologist [facility] Sodium 141 136 - 145 mmol/L 10/11/2022 [...] mL/min/1.7 3 m2 10/11/2022 8:18 AM EDT [facility] [facility] Comment:Estimated GFR was ca lculated using the CKD-EPIcr (2020) equation refit without race. The equation is recommended by the National Kidney Foundation - Mac[place] Society of Nephrology Task Force. Blood VENOUS BLOOD / Unknown Venipuncture / Unknown 10/11/2022 5:28 AM EDT 10/11/2022 6:57 AM EDT us Unknown Provider CHEMISTRY ORDERABLES Final Resu lt [facility] 1 [facility] , [place] [address] [facility] [address] [place], [place] [id number] documented in this encounter Visit Diagnoses Diagnosis Encounter for general adult medical examination without abnormal findings Routine general medical examination at a health care facility documented in this encounter Care Teams Acoustics Teacher Relationship Specialty Start Date End Date Carlos Dean MD PCP - General 11/08/09 documented as of this encounter
--- OUTSIDE RECORDS SUMMARY | 2022-10-12 05:00 | XMS_ITS | Encounter Summary ---
Author Organization [place] [address] Care Team Providers Care Kennel Assistant Name Role Phone Carlos Dean MD Primary Care Provider [phone] Encounter Details Date Type Department Care Team (Latest Contact Info) Description 10/12/2022 5:00 AM EDT Hospital Encounter [facility] Referral Lab 1 [place] [address] Encounter for general adult medical [...] METABOLIC PANEL (10/12/2022 5:46 AM EDT) Pathologist [facility] Sodium 139 136 - 145 mmol/L 10/12/2022 [...] 10/12/2022 8:02 AM EDT [facility] Albumin 3.3(L) 3.5 - 5.2 gm/dL 10/12/2022 8:02 AM EDT [facility] Total Protein 6.7 6.4 - 8.3 gm/dL 10/12/2022 8:02 AM EDT [facility] Bili Total 0.4 0.2 - 1.3 mg/dL 10/12/2022 8:02 AM EDT [facility] ALT 15 <=41 U/L 10/12/2022 8:02 AM EDT [facility] AST 22 <=40 U/L 10/12/2022 8:02 AM EDT [facility] Alk Phos 69 36 - 123 U/L 10/12/2022 8:02 AM EDT [facility] eGFR (CKD-EPIcr 2020) 41(L) >=60 mL/min/1.7 3 m2 10/12/2022 8:02 AM EDT [facility] Comment:Estimated GFR was ca lculated using the CKD-EPIcr (2020) equation refit without race. The equation is recommended by the National Kidney Foundation - [place] Society of Nephrology Task Force. Blood VENOUS BLOOD / Unknown Venipuncture / Unknown 10/12/2022 5:46 AM EDT 10/12/2022 6:59 AM EDT us Unknown Provider CHEMISTRY ORDERABLES Final Resu lt [facility] 1 [facility] , [place] [address] [facility] [address] [place] [address] documented in this encounter Visit Diagnoses Diagnosis Encounter for general adult medical examination without abnormal findings Routine general medical examination at a health care facility documented in this encounter Care Teams Kennel Assistant Relationship Specialty Start Date End Date Carlos Dean MD PCP - General 11/08/09 documented as of this encounter
--- OUTSIDE RECORDS SUMMARY | 2022-10-12 09:37 | XMS_ITS | Encounter Summary ---
Author Organization [place] [address] Care Team Providers Care Billing Checker Name Role Phone Carlos Dean MD Primary Care Provider [phone] Encounter Details Date Type Department Care Team (Latest Contact Info) Description 10/12/2022 9:37 AM EDT Hospital Encounter [facility] Referral Lab 1 [place] [address] Encounter for general adult medical [...] facility documented in this encounter Care Teams Billing Checker Relationship Specialty Start Date End Date Carlos Dean MD PCP - General 11/08/09 documented as of this encounter
--- OUTSIDE RECORDS SUMMARY | 2022-10-12 09:38 | XMS_ITS | Encounter Summary ---
Author Organization [place] [address] Care Team Providers Care Optometry Assistant Name Role Phone Carlos Dean MD Primary Care Provider [phone] Encounter Details Date Type Department Care Team (Latest Contact Info) Description 10/12/2022 9:38 AM EDT Hospital Encounter [facility] Referral Lab 1 [place] [address] Encounter for general adult medical [...] facility documented in this encounter Care Teams Optometry Assistant Relationship Specialty Start Date End Date Carlos Dean MD PCP - General 11/08/09 documented as of this encounter
--- OUTSIDE RECORDS SUMMARY | 2022-10-15 05:00 | XMS_ITS | Encounter Summary ---
Author Organization [place] [address] Care Team Providers Care Manager Community Relations Name Role Phone Carlos Dean MD Primary Care Provider [phone] Encounter Details Date Type Department Care Team (Latest Contact Info) Description 10/15/2022 5:00 AM EDT Hospital Encounter [facility] Referral Lab 1 [place] [address] Encounter for general adult medical [...] 10/15/2022 9:55 AM EDT [facility] Platelet 409(H) 155 - 369 x10(3)/mcL 10/15/2022 9:55 AM EDT [facility] MPV 9.7 8.8 - 12.5 fL 10/15/2022 9:55 AM EDT [facility] Neut Percent 64.2 % 10/15/2022 9:55 AM EDT [facility] Comment:Neutrophils equals s egs plus bands Imm Gran% 0.8 % 10/15/2022 9:55 AM EDT [facility] Comment:Automated count of m etamyelocytes, myelocytes and promyelocytes. Lymph Percent 23.2 % 10/15/2022 9:55 AM EDT [facility] [place] Percent 5.9 % 10/15/2022 9:55 AM EDT [facility] Eos Percent 5.4 % 10/15/2022 9:55 AM EDT [facility] Baso Percent 0.5 % 10/15/2022 9:55 AM EDT [facility] Neut # 6.3(H) 1.6 - 6.1 x10(3)/[facility] 10/15/2022 9:55 AM EDT [facility] Comment:Neutrophils equals s egs plus bands IMMGRAN# 0.1 0.0 - 0.1 x10(3)/[facility] 10/15/2022 9:55 AM EDT [facility] Comment:Automated count of m etamyelocytes, myelocytes and promyelocytes. An absolute IG <0.1 is reported as 0.0. Lymph # 2.3 1.2 - 3.9 x10(3)/mcL 10/15/2022 9:55 AM EDT [facility] [place] # 0.6 0.3 - 0.9 x10(3)/[facility] 10/15/2022 9:55 AM EDT [facility] Eos# 0.5 0.0 - 0.5 x10(3)/[facility] 10/15/2022 9:55 AM EDT [facility] Baso # 0.1 0.0 - 0.1 x10(3)/[facility] 10/15/2022 9:55 AM EDT [facility] Blood VENOUS BLOOD / Unknown Venipuncture / Unknown 10/15/2022 9:28 AM EDT 10/15/2022 9:28 AM EDT us Unknown Provider HEMATOLOGY ORDERABLES Final Res ult [facility] [employer] [address] [facility] , [address] [address] documented in this encounter Visit Diagnoses Diagnosis Encounter for general adult medical examination without abnormal findings Routine general medical examination at a health care facility documented in this encounter Care Teams Manager Community Relations Relationship Specialty Start Date End Date Carlos Dean MD PCP - General 11/08/09 documented as of this encounter
--- OUTSIDE RECORDS SUMMARY | 2022-10-15 05:00 | XMS_ITS | Encounter Summary ---
Author Organization [place] [address] Care Team Providers Care Knocker Off Name Role Phone Carlos Dean MD Primary Care Provider [phone] Encounter Details Date Type Department Care Team (Latest Contact Info) Description 10/15/2022 5:00 AM EDT Hospital Encounter [facility] Referral Lab 1 [place] [address] Encounter for general adult medical [...] Assessment Author No 04/05/2015 1:44 PM Robert Craranza RN * Does this person have serious [...] BASIC METABOLIC PANEL (10/15/2022 9:28 AM EDT) [facility] Sodium 140 136 - 145 mmol/L 10/15/2022 [...] mL/min/1.7 3 m2 10/15/2022 10:14 AM EDT [facility] Comment:Estimated GFR was ca lculated using the CKD-EPIcr (2020) equation refit without race. The equation is recommended by the National Kidney Foundation - [place] Society of Nephrology Task Force. Blood VENOUS BLOOD / Unknown Venipuncture / Unknown 10/15/2022 9:28 AM EDT 10/15/2022 9:28 AM EDT us Unknown Provider CHEMISTRY ORDERABLES Final Resu lt [facility] 1 [facility] , [address] [place] [id number] [facility] [address] [place], [place] [id number] documented in this encounter Visit Diagnoses Diagnosis Encounter for general adult medical examination without abnormal findings Routine general medical examination at a health care facility documented in this encounter Care Teams Knocker Off Relationship Specialty Start Date End Date Carlos Dean MD PCP - General 11/08/09 documented as of this encounter
--- OUTSIDE RECORDS SUMMARY | 2022-10-17 05:00 | XMS_ITS | Encounter Summary ---
Author Organization [place] [address] Care Team Providers Care Bore Miner Operator Name Role Phone Carlos Dean MD Primary Care Provider [phone] Encounter Details Date Type Department Care Team (Latest Contact Info) Description 10/17/2022 5:00 AM EDT Hospital Encounter [facility] Referral Lab 1 [place] [address] Encounter for general adult medical [...] facility documented in this encounter Care Teams Bore Miner Operator Relationship Specialty Start Date End Date Carlos Dean MD PCP - General 11/08/09 documented as of this encounter
--- OUTSIDE RECORDS SUMMARY | 2022-10-17 05:00 | XMS_ITS | Encounter Summary ---
Author Organization [place] [address] Care Team Providers Care Soft Drink Powder Mixer Name Role Phone Carlos Dean MD Primary Care Provider [phone] Encounter Details Date Type Department Care Team (Latest Contact Info) Description 10/17/2022 5:00 AM EDT Hospital Encounter [facility] Referral Lab 1 [place] [address] Encounter for general adult medical [...] facility documented in this encounter Care Teams Soft Drink Powder Mixer Relationship Specialty Start Date End Date Carlos Dean MD PCP - General 11/08/09 documented as of this encounter
--- OUTSIDE RECORDS SUMMARY | 2022-10-18 05:00 | XMS_ITS | Encounter Summary ---
Author Organization [place] [address] Care Team Providers Care Auto Camp Attendant Name Role Phone Carlos Dean MD Primary Care Provider [phone] Encounter Details Date Type Department Care Team (Latest Contact Info) Description 10/18/2022 5:00 AM EDT Hospital Encounter [facility] Referral Lab 1 [place] [address] Encounter [...] METABOLIC PANEL (10/18/2022 4:45 AM EDT) Pathologist [facility] Sodium 142 136 - 145 mmol/L 10/18/2022 [...] mL/min/1.7 3 m2 10/18/2022 6:[address] [facility] [employer] [facility] Comment:Estimated GFR was ca lculated using the CKD-EPIcr (2020) equation refit without race. The equation is recommended by the National Kidney Foundation - [place] Society of Nephrology Task Force. Blood VENOUS BLOOD / Unknown Venipuncture / Unknown 10/18/2022 4:45 AM EDT 10/18/2022 6:15 AM EDT us Unknown Provider CHEMISTRY ORDERABLES Final Resu lt [employer] 1 [facility] , [place] [address] [facility] [address] [place], [place] [id number] documented in this encounter Visit Diagnoses Diagnosis Encounter for general adult medical examination without abnormal findings Routine general medical examination at a health care facility documented in this encounter Care Teams Auto Camp Attendant Relationship Specialty Start Date End Date Carlos Dean MD PCP - General 11/08/09 documented as of this encounter
--- OUTSIDE RECORDS SUMMARY | 2022-10-22 13:54 | XMS_ITS | Encounter Summary ---
Author Organization [place] [address] Care Team Providers Care Body Hanger Name Role Phone Carlos Dean MD Primary Care Provider [phone] Encounter Details Date Type Department Care Team (Latest Contact Info) Description 10/22/2022 1:54 PM EDT Hospital Encounter [facility] Referral Lab 1 [place] [address] Encounter for general adult medical [...] facility documented in this encounter Care Teams Body Hanger Relationship Specialty Start Date End Date Carlos Dean MD PCP - General 11/08/09 documented as of this encounter
--- OUTSIDE RECORDS SUMMARY | 2022-10-22 13:54 | XMS_ITS | Encounter Summary ---
Author Organization [place] [address] Care Team Providers Care Pullman Car Clerk Name Role Phone Carlos Dean MD Primary Care Provider [phone] Encounter Details Date Type Department Care Team (Latest Contact Info) Description 10/22/2022 1:54 PM EDT Hospital Encounter [facility] Referral Lab 1 [place] [address] Encounter for general adult medical [...] facility documented in this encounter Care Teams Pullman Car Clerk Relationship Specialty Start Date End Date Carlos Dean MD PCP - General 11/08/09 documented as of this encounter
--- OUTSIDE RECORDS SUMMARY | 2023-12-04 05:00 | XMS_ITS | Encounter Summary ---
Author Organization [place] [address] Care Team Providers Care Underwriting Support Manager Name Role Phone Carlos Dean MD Primary Care Provider [phone] Encounter Details Date Type Department Care Team (Latest Contact Info) Description 12/04/2023 5:00 AM EDT Hospital Encounter [facility] Referral Lab 1 [place] [address] Tang Catherine MD [address] [place] [address] [place] [phone] Encounter for general adult medical examination [...] (ABNORMAL) PREALBUMIN (12/04/2023 4:00 AM EDT) Pathologist [facility] Prealbumin 15.9(L) 20.0 - 40.0 mg/dL 12/04/2023 7:54 AM EDT [facility] Blood VENOUS BLOOD / Unknown Venipuncture / Unknown 12/04/2023 4:00 AM EDT 12/04/2023 6:56 AM EDT Tang Catherine MD CHEMISTRY ORDERABLES Final Resu lt [facility] 1 [facility] , [place] [address] documented in this encounter Visit Diagnoses Diagnosis Encounter for general adult medical examination without abnormal findings Routine general medical examination at a health care facility documented in this encounter Care Teams Underwriting Support Manager Relationship Specialty Start Date End Date Carlos Dean MD PCP - General 11/08/09 documented as of this encounter
--- OUTSIDE RECORDS SUMMARY | 2023-12-04 05:00 | XMS_ITS | Encounter Summary ---
Author Organization [place] [address] Care Team Providers Care Administrative Services Assistant Name Role Phone Carlos Dean MD Primary Care Provider [phone] Encounter Details Date Type Department Care Team (Latest Contact Info) Description 12/04/2023 5:00 AM EDT Hospital Encounter [facility] Referral Lab [address] [place] [address] Tang Catherine MD [address] [place] [address] [place] [phone] Encounter for general adult medical examination [...] COMPREHENSIVE METABOLIC PANEL (12/04/2023 4:00 AM EDT) [facility] Sodium 140 136 - 145 mmol/L 12/04/2023 [...] 12/04/2023 8:10 AM EDT [facility] Albumin 3.6 3.5 - 5.2 gm/dL 12/04/2023 8:10 AM EDT [facility] Total Protein 5.9(L) 6.4 - 8.3 gm/dL 12/04/2023 8:10 AM EDT [facility] Bili Total 0.5 0.2 - 1.3 mg/dL 12/04/2023 8:10 AM EDT [facility] ALT 18 <=41 U/L 12/04/2023 8:10 AM EDT [facility] AST 17 <=40 U/L 12/04/2023 8:10 AM EDT [facility] Alk Phos 74 36 - 123 U/L 12/04/2023 8:10 AM EDT [facility] eGFR (CKD-EPIcr 2020) 74 >=60 mL/min/1.7 3 m2 12/04/2023 8:10 AM EDT [facility] Comment:Estimated GFR was ca lculated using the CKD-EPIcr (2020) equation refit without race. The equation is recommended by the [employer] - [place] [employer]ph[employer] Task Force. Blood VENOUS BLOOD / Unknown Venipuncture / Unknown 12/04/2023 4:00 AM EDT 12/04/2023 6:56 AM EDT us Tang Catherine MD CHEMISTRY ORDERABLES Final Resu lt [facility] [address] [facility] , [address] [address] [facility] [address] [place] [id number] documented in this encounter Visit Diagnoses Diagnosis Encounter for general adult medical examination without abnormal findings Routine general medical examination at a health care facility documented in this encounter Care Teams Administrative Services Assistant Relationship Specialty Start Date End Date Carlos Dean MD PCP - General 11/08/09 documented as of this encounter
--- OUTSIDE RECORDS SUMMARY | 2024-12-15 15:09 | XMS_ITS | Clinical Summary ---
Author Organization [facility] Address [address] [place] [id number] Care Team Providers Care Glass Polisher Name Role Phone Carlos Dean MD Primary Care Provider [phone] Allergies No known active allergies Medications albuterol [...] times daily (with meals). Active folic acid/multivit,ir on,mineral mixer (CENTRUM PO) Take by mouth. Ac tive [...] Influenza Vaccination (#1) 2024 Insurance Care Teams Glass Polisher Relationship Specialty [place] [address] [place] [address] PCP - General Family Medicine 04/01/18
--- OUTSIDE RECORDS SUMMARY | 2024-12-15 15:09 | XMS_ITS | Clinical Summary ---
Author Organization Healthcare Address [address] [place] [address] Care Team Providers Care Customer Sales Service Manager Name Role Phone Carlos Dean MD Primary Care Provider [phone] Allergies No known active allergies Medications hydrALAZINE [...] week. Active ergocalciferol (Vitamin D-2) 1.25 MG (64784 UT) capsule Take 50,000 Units by mouth [...] Administration Dates Next Due Moderna COVID-19 Vaccine (Eligibility Services Representative) 12+ years ,07/20/2020 Family History Medical History [...] 2024 UKY-Zoster Vaccines (1 of 2) 2024 [id number] Vaccine (3 - season) 2024 08/17/2020, 07/20/2020 [...] to complete this topic Insurance Care Teams Customer Sales Service Manager Relationship Specialty Start Date End Date Carlos Dean MD PCP - General 08/05/20
--- OUTSIDE RECORDS SUMMARY | 2024-12-15 15:10 | XMS_ITS | Clinical Summary ---
Author Organization [id number] Address [address], [address] [place] [address] Care Team Providers Care Ground Crewman Mission Support Name Role Phone Carlos Dean MD Primary Care Provider [phone] Allergies No known active allergies Medications lisinopril [...] Surgeon: Africa Gee MD; Location: [facility]; Service: General Medical devices from [...] this topic Medical Devices Implanted Type Area Night Shift Supervisor Device Identifier Shelf Expiration Date Model / Serial / Lot Matrix Tissue Strattice 6cm X 10cm [facility] - [id number] Implanted:Qty: 1 on 12/09/2009 at [facility] Abdomen [employer] 09/22/2010 [id number] / / [id number] Mesh Marlex 6 X 6 #[id number] - [id number] Implanted:Qty: 1 on 04/04/2015 by Africa Gee MD at [facility] N/A: Abdomen CR BARD:DAVOL 12/22/2018 [id number] / / [id number] Procedures Procedure Name Priority Date/Time Associated Diagnosis [...] 12/04/2023 8:10 AM EDT [facility] Calcium 8.5(L) 8.6 - 10.4 mg/dL 12/04/2023 8:10 AM EDT [facility] Glucose Lvl 251(H) 70 - 99 mg/dL 12/04/2023 8:10 AM EDT [facility] BUN 15 6 - 20 mg/dL 12/04/2023 8:10 AM EDT [facility] Creatinine 0.94 0.51 - 1.30 mg/dL 12/04/2023 8:10 AM EDT [facility] Albumin 3.6 3.5 - 5.2 gm/dL 12/04/2023 8:10 AM EDT [facility] Total Protein 5.9(L) 6.4 - 8.3 gm/dL 12/04/2023 8:10 AM EDT [facility] Bili Total 0.5 0.2 - 1.3 mg/dL 12/04/2023 8:10 AM EDT [facility] ALT 18 <=41 U/L 12/04/2023 8:10 AM EDT [facility] AST 17 <=40 U/L 12/04/2023 8:10 AM EDT [facility] Alk Phos 74 36 - 123 U/L 12/04/2023 8:10 AM EDT [facility] eGFR (CKD-EPIcr 2020) 74 >=60 mL/min/1.7 3 m2 12/04/2023 8:10 AM EDT [facility] Comment:Estimated GFR was ca lculated using the CKD-EPIcr (2020) equation refit without race. The equation is recommended by the National Kidney Foundation - [place] Society of Nephrology Task Force. Blood VENOUS BLOOD / Unknown Venipuncture / Unknown 12/04/2023 4:00 AM EDT 12/04/2023 6:56 AM EDT us Tang Catherine MD CHEMISTRY ORDERABLES Final Resu lt [facility] [address] , [place] [address] [facility] [address] [id number] * (ABNORMAL) HEMOGLOBIN A1C (10/11/2022 5:28 AM EDT) Pathologist [facility] Hgb A1C 9.5(H) 4.2 - 5.6 % 10/11/2022 8:36 AM EDT [facility] Est. Avg Glucose 226 mg/dL 10/11/2022 8:36 AM EDT [facility] Blood VENOUS BLOOD / Unknown Venipuncture / Unknown 10/11/2022 5:28 AM EDT 10/11/2022 7:05 AM EDT Narrative [facility] - 10/11/2022 8:36 AM EDT REFERENCE RANGE: Normal: 4.0-5.6% Pre-diabetes: 5.7-6.4% Provisional diagnosis of diabetes: >6.4% Hgb F>10% and anything which shortens red cell survival, such as hemolytic anemia, or unstable hemoglobin variants such as HbSS, HbSC, or HbCC, will lower the HbA1c value associated with a given level of glycemic control. [facility] CHEMISTRY ORDERABLES Pamela hector Result [facility] [address] , [place] [address] * (ABNORMAL) LIPID SCREEN (10/21/2018 5:57 AM EDT) Pathologist [facility] Cholesterol 132 <=200 mg/dL 10/21/2018 9:01 AM EDT [email or web address] Comment: < 200 Desirable 200 - 239 Borderline High >= 240 High Triglyceride 158(H) <=150 mg/dL 10/21/2018 9:01 AM EDT [facility] Comment: < 150 Normal 150 - 199 Borderline High 200 - 499 High >= 500 Very High HDL 40 >=40 mg/dL 10/21/2018 9:01 AM EDT [facility] Comment: > 60 Optimal 40 - 60 Acceptable < 40 Low LDL Calculated 60 <=100 mg/dL 10/21/2018 9:01 AM EDT [email or web address] Comment: < 100 Optimal 100 - 129 Near or above optimal 130 - 159 Borderline High 160 - 189 High >= 190 Very High Non-HDL-C Calculated 92 <=129 mg/dL 10/21/2018 9:01 AM EDT [facility] Comment: <130 Desirable 130-159 Above Desirable 160-189 Borderline High 190-219 High >= 220 Very High Fasting Specimen? Yes None 019 9:01 AM EDT [facility] Blood VENOUS BLOOD / Unknown Venipuncture / Unknown 10/21/2018 5:57 AM EDT 10/21/2018 6:39 AM EDT Rocio Franklinalyssa Del Toro RN PALLIATIVE CARE CHEMISTRY ORDERABLES Final Result [facility] [address] [facility] [facility] [address] [place] [address] from Last 3 Months or Most Recently Relevant to Health Maintenance Insurance [employer] MDR [address] MDR Advance Directives For more information, please contact: [phone] * Full Code (Latest Code Status on File) Date Activated Date Inactivated Comments 10/20/2018 11:25 PM 10/22/2018 7:12 PM * Full Code Date Activated Date Inactivated Comments 04/04/2015 5:16 PM 04/05/2015 6:42 PM Care Teams Ground Crewman Mission Support Relationship Specialty Start Date End Date Carlos Dean MD PCP - General 11/08/09
[2024-12-15 15:52] LABS: Chloride 99 mmol/L (98-107); Potassium 4.3 mmoL/L (3.5-5.1); Sodium 136 mmol/L (136-145)
[2024-12-15 15:55] LABS: Blood Urea Nitrogen 22 mg/dl (7-17); Calcium 9.2 mg/dl (8.4-10.2); Creatinine,Serum 0.80 mg/dl (0.52-1.04); Estimated Glomerular Filt Rate 76 ml/min (>60); GFR (African American) 92 ML/MIN (>60); Glucose 208 mg/dl (74-100)
[2024-12-15 17:05] LABS: Anion Gap 14.3 mEq/L (5-15); Carbon Dioxide 27 mmol/L (22.0-30.0)
== END 2024-12-15 23:59 | disposition home or self-care (01) ==
PROVIDERS: PCP Family Medicine; Visit Provider Internal Medicine
DX: I25.10 Atherosclerotic heart disease of native coronary artery without angina pectoris (principal)
CPT/HCPCS: 36415; 80048

== ENCOUNTER 2025-02-02 18:02 | Observation (INO) | payer MEDICAID, SELFPAY ==
--- OUTSIDE RECORDS SUMMARY | 2022-10-10 04:00 | XMS_ITS | Encounter Summary ---
Author Organization [place] [address] Care Team Providers Care Nuclear Operations Specialist Name Role Phone Carlos Dean MD Primary Care Provider [phone] Encounter Details Date Type Department Care Team (Latest Contact Info) Description 10/10/2022 5:00 AM EDT Hospital Encounter [facility] Referral Lab 1 [place] [address] Encounter for general adult medical [...] medical care, and heating? Somewhat hard 01/20/2025 [facility] [place] of Occupat ional Health - Occupational Stress [...] money to get more. Never true 01/20/2025 [facility] Utilities Answer Date Recorded In the past 12 months has th e [employer], gas, oil, or water [employer] threatened to shut off services in your home? No 01/20/2025 [facility] HRSN CMS IP Transportation Answer D [...] as of this encounter Functional Status * Alcohol Screening Score Answer Date of Assessment Author 0 01/19/2025 4:00 PM Rodrick Gaxiola RN * Drug Screening Score Answer Date of Assessment Author 0 01/19/2025 4:00 PM [place] Rodrick Mcgovern RN * Question Answer Date of Assessment Author How often do you have a drin k containing alcohol? 0 01/19/2025 4:00 PM [place] Raina Mcgovern RN How many drinks containing a lcohol do you have on a typical day when you are drinking? 0 01/19/2025 4:00 PM Raina Gaxiola RN How often do you have six or more drinks on one occasion? 0 01/19/2025 4:00 PM [place] Raina Mcgovern RN AUDIT-C to Determine Rows 4-10 0 01/19/2025 4:00 PM EDT Raina Mcgovern RN * Is the person deaf or does [...] in doing things 0 01/20/2025 10:45 AM Judith Guaman RN Feeling down, depressed, or hopeless 1 01/20/2025 10:45 AM Judith Guaman RN PHQ-2 Total Score 1 01/20/2025 10:45 AM Zuri Guaman RN * PHQ-9 Total Score Answer Date of Assessment Author 1 01/20/2025 10:45 AM Zuri Matos RN * PHQ-2 Total Score Answer Date of Assessment Author 1 01/20/2025 10:45 AM Zuri Matos RN * Suicide Severity Rating Answer Date of Assessment Author Low Risk 01/19/2025 4:05 PM Rodrick Gaxiola RN * [place] Suicide Severity Rating Scale (Q shift for moderate and high) Question Answer Date of Assessment Author 1. In the past month, have y ou wished you were or wished you could go to sleep and not wake up? 1 01/19/2025 4:05 PM [place] Raina Mcgovern R N 2. In the past month, have y ou actually had any thoughts of killing yourself? (If no, skip to question 6) 0 01/19/2025 4:05 PM Rodrick Gaxiola RN 6. Have you ever done anythi ng, started to do anything, or prepared to do anything to end your life? 0 01/19/2025 4:05 PM EDT Mcgovern, Am y, RN documented as of this encounter Mental [...] Office [facility] [address] [facility] [address] [place] [address] Michelle uBll, SCRAP METAL COLLECTOR [address] [place], [place] [id number] documented as of this encounter Results * (ABNORMAL) PREALBUMIN (10/10/2022 5:38 AM EDT) Prealbumin 16.9(L) 20.0 - 40.0 mg/dL 10/10/2022 8:46 AM EDT [facility] Blood VENOUS BLOOD / Unknown Venipuncture / Unknown 10/10/2022 5:38 AM EDT 10/10/2022 6:08 AM EDT us Unknown Provider CHEMISTRY ORDERABLES Final Resu lt [facility] [address] [facility] [place] [id number] documented in this encounter Visit Diagnoses Diagnosis Encounter for general adult medical examination without abnormal findings Routine general medical examination at a health care facility documented in this encounter Care Teams Nuclear Operations Specialist Relationship Specialty Start Date End Date Carlos Dean MD PCP - General 11/08/09 documented as of this encounter
--- OUTSIDE RECORDS SUMMARY | 2022-10-10 04:00 | XMS_ITS | Encounter Summary ---
Author Organization [place] [address] Care Team Providers Care Senior Network Security Engineer Name Role Phone Carlos Dean MD Primary Care Provider [phone] Encounter Details Date Type Department Care Team (Latest Contact Info) Description 10/10/2022 5:00 AM EDT Hospital Encounter [facility] Referral Lab 1 [place] [address] Encounter for general adult medical [...] medical care, and heating? Somewhat hard 01/20/2025 [facility] [place] of Occupat ional Health - Occupational Stress [...] money to get more. Never true 01/20/2025 [facility] Utilities Answer Date Recorded In the past 12 months has th e [employer], gas, oil, or water [employer] threatened to shut off services in your home? No 01/20/2025 [facility] HRSN CMS IP Transportation Answer D ate [...] 01/19/2025 4:05 PM Rodrick Gaxiola RN * [place] Suicide Severity Rating Scale (Q shift for [...] Office Visit [facility] [address] [facility] [address] [place] [address] Michelle Bull, MONITORING TECH [address] [place] [address] documented as of this encounter [...] 6:27 AM EDT [facility] MCHC 29.4(L) 30.7 - 35.5 g/dL 10/10/2022 6:27 AM EDT [facility] RDW 15.5(H) <=14.9 % 10/10/2022 6:27 AM EDT [facility] Platelet 556(H) 155 - 369 x10(3)/mcL 10/10/2022 6:27 AM EDT [facility] MPV 9.0 8.8 - 12.5 fL 10/10/2022 6:27 AM EDT [facility] Neut Percent 69.7 % 10/10/2022 6:27 AM EDT [facility] Comment:Neutrophils equals s egs plus bands Imm Gran% 2.6 % 10/10/2022 6:27 AM EDT [facility] Comment:Automated count of m etamyelocytes, myelocytes and promyelocytes. IG >1% represents a left shift and provides an early indication of an infection or inflammatory process. Lymph Percent 17.1 % 10/10/2022 6:27 AM EDT [facility] [place] Percent 6.6 % 10/10/2022 6:27 AM EDT [facility] Eos Percent 3.5 % 10/10/2022 6:27 AM EDT [facility] Baso Percent 0.5 % 10/10/2022 6:27 AM EDT [facility] Neut # 8.2(H) 1.6 - 6.1 x10(3)/[facility] 10/10/2022 6:27 AM EDT [facility] Comment:Neutrophils equals s egs plus bands IMMGRAN# 0.3(H) 0.0 - 0.1 x10(3)/[facility] 10/10/2022 6:27 AM EDT [facility] Comment:Automated count of m etamyelocytes, myelocytes and promyelocytes. An absolute IG <0.1 is reported as 0.0. Lymph # 2.0 1.2 - 3.9 x10(3)/[facility] 10/10/2022 6:27 AM EDT [facility] [place] # 0.8 0.3 - 0.9 x10(3)/[facility] 10/10/2022 6:27 AM EDT [facility] Eos# 0.4 0.0 - 0.5 x10(3)/[facility] 10/10/2022 6:27 AM EDT [facility] [place] # 0.1 0.0 - 0.1 x10(3)/[facility] 10/10/2022 6:27 AM EDT [facility] Blood VENOUS BLOOD / Unknown Venipuncture / Unknown 10/10/2022 5:38 AM EDT 10/10/2022 6:08 AM EDT us Unknown Provider HEMATOLOGY ORDERABLES Final Res ult [facility] [address] [facility] , [place] [address] documented in this encounter Visit Diagnoses Diagnosis Encounter for general adult medical examination without abnormal findings Routine general medical examination at a health care facility documented in this encounter Care Teams Senior Network Security Engineer Relationship Specialty Start Date End Date Carlos Dean MD PCP - General 11/08/09 documented as of this encounter
--- OUTSIDE RECORDS SUMMARY | 2022-10-11 04:00 | XMS_ITS | Encounter Summary ---
Author Organization [place] [address] Care Team Providers Care Supervisor Filling And Packing Name Role Phone Carlos Dean MD Primary Care Provider [phone] Encounter Details Date Type Department Care Team (Latest Contact Info) Description 10/11/2022 5:00 AM EDT Hospital Encounter [facility] Referral Lab 1 [place] [address] Encounter for general adult medical [...] medical care, and heating? Somewhat hard 01/20/2025 [employer] [employer] [place] of Occupat ional Health - Occupational Stress [...] money to get more. Never true 01/20/2025 [facility] Utilities Answer Date Recorded In the past 12 months has th e [employer], gas, oil, or water [employer] threatened to shut off services in your home? No 01/20/2025 [facility] HRSN CMS IP Transportation Answer [...] 01/19/2025 4:05 PM Rodrick Gaxiola RN * [place] Suicide Severity Rating Scale (Q shift for [...] end your life? 0 01/19/2025 4:05 PM Dhiraj Gaxiola RN documented as of this encounter Mental [...] Office Visit [facility] [address] [facility] [address] [place] [address] Michelle Bull, ORDER PICKER/ASSEMBLER [address] [place] [address] Scheduled Orders Name Type Priority Associated Diagnoses Orde r Schedule BASIC METABOLIC PANEL Lab Routine Encounter for general adult medical examination without abnormal findings ONCE for 1 Occurrences starting 10/11/2022 until 11/15/2022 documented as of this encounter Results * (ABNORMAL) BASIC METABOLIC PANEL (10/11/2022 5:28 AM EDT) Sodium 141 136 - 145 mmol/L 10/11/2022 8:18 AM EDT [facility] Potassium 4.3 3.5 - 5.0 mmol/L 10/11/2022 8:18 AM EDT [facility] Chloride 97(L) 98 - 107 mmol/L 10/11/2022 8:18 AM EDT [facility] Total CO2 32(H) 22 - 29 mmol/L 10/11/2022 8:18 AM EDT [facility] Anion Gap 12 7 - 16 mmol/L 10/11/2022 8:18 AM EDT [facility] Calcium 8.8 8.6 - 10.4 mg/dL 10/11/2022 8:18 AM EDT [facility] Glucose Lvl 74 74 - 100 mg/dL 10/11/2022 8:18 AM EDT [facility] BUN 18 6 - 20 mg/dL 10/11/2022 8:18 AM EDT [facility] Creatinine 1.41(H) 0.51 - 1.30 mg/dL 10/11/2022 8:18 AM EDT [facility] eGFR (CKD-EPIcr 2020) 46(L) >=60 mL/min/1.7 3 m2 10/11/2022 8:18 AM EDT [facility] Comment:Estimated GFR was ca lculated using the CKD-EPIcr (2020) equation refit without race. The equation is recommended by the National Kidney Foundation - [place] [employer] of Nephrology Task Force. Blood VENOUS BLOOD / Unknown Venipuncture / Unknown 10/11/2022 5:28 AM EDT 10/11/2022 6:57 AM EDT us Unknown Provider CHEMISTRY ORDERABLES Final Resu lt [facility] [address] [facility], [address] [place] [id number] [facility] [address] [place] [address] documented in this encounter Visit Diagnoses Diagnosis Encounter for general adult medical examination without abnormal findings Routine general medical examination at a health care facility documented in this encounter Care Teams Supervisor Filling And Packing Relationship Specialty Start Date End Date Carlos Dean MD PCP - General 11/08/09 documented as of this encounter
--- OUTSIDE RECORDS SUMMARY | 2022-10-12 04:00 | XMS_ITS | Encounter Summary ---
Author Organization [place] [address] Care Team Providers Care Rim Fire Priming Tool Setter Name Role Phone Carlos Dean MD Primary Care Provider [phone] Encounter Details Date Type Department Care Team (Latest Contact Info) Description 10/12/2022 5:00 AM EDT Hospital Encounter [facility] Referral Lab 1 [place] [address] Encounter for general adult medical [...] medical care, and heating? Somewhat hard 01/20/2025 [facility] [place] of Occupat ional Health - Occupational Stress [...] money to get more. Never true 01/20/2025 [facility] Utilities Answer Date Recorded In the past 12 months has th e [email or web address], gas, oil, or water [employer] threatened to shut off services in your home? No 01/20/2025 [facility] HRSN CMS IP Transportation Answer D [...] PHQ-2 Total Score 1 01/20/2025 10:45 AM Zrui Guaman RN * PHQ-9 Total Score Answer Date of Assessment Author 1 01/20/2025 10:45 AM Zuri Matos RN * PHQ-2 Total Score Answer Date of Assessment Author 1 01/20/2025 10:45 AM Zuri Matos RN * Suicide Severity Rating Answer Date of Assessment Author Low Risk 01/19/2025 4:05 PM Rodrick Gaxiola RN * [place] Suicide Severity Rating Scale (Q shift for [...] Office Visit [facility] [address] [facility] [address] [place] [address] Michelle Bull, PATCHER WOOD WELDER [address] [place] [address] Scheduled Orders Name Type Priority Associated Diagnoses Orde r Schedule COMPREHENSIVE METABOLIC PANEL Lab Routine Encounter for general adult medical examination without abnormal findings ONCE for 1 Occurrences starting 10/12/2022 until 11/16/2022 documented as of this encounter Results * (ABNORMAL) COMPREHENSIVE METABOLIC PANEL (10/12/2022 5:46 AM EDT) Sodium 139 136 - 145 mmol/L 10/12/2022 8:02 AM EDT [facility] Potassium 4.8 3.5 - 5.0 mmol/L 10/12/2022 8:02 AM EDT [facility] Chloride 98 98 - 107 mmol/L 10/12/2022 8:02 AM EDT [facility] Total CO2 32(H) 22 - 29 mmol/L 10/12/2022 8:02 AM EDT [facility] Anion Gap 9 7 - 16 mmol/L 10/12/2022 8:02 AM EDT [facility] Calcium 9.1 8.6 - 10.4 mg/dL 10/12/2022 8:02 AM EDT [facility] Glucose Lvl 135(H) 74 - 100 mg/dL 10/12/2022 8:02 AM EDT [facility] BUN 24(H) 6 - 20 mg/dL 10/12/2022 8:02 AM EDT [facility] Creatinine 1.55(H) 0.51 - 1.30 mg/dL 10/12/2022 8:02 AM EDT [facility] Albumin 3.3(L) 3.5 - 5.2 gm/dL 10/12/2022 8:02 AM EDT [facility] Total Protein 6.7 6.4 - 8.3 gm/dL 10/12/2022 8:02 AM EDT [facility] Bili Total 0.4 0.2 - 1.3 mg/dL 10/12/2022 8:02 AM EDT [facility] ALT 15 <=41 U/L 10/12/2022 8:02 AM EDT [facility] AST 22 <=40 U/L 10/12/2022 8:02 AM EDT [facility] Alk Phos 69 36 - 123 U/L 10/12/2022 8:02 AM EDT [facility] eGFR (CKD-EPIcr 2020) 41(L) >=60 mL/min/1.7 3 m2 10/12/2022 8:02 AM EDT [facility] Comment:Estimated GFR was ca lculated using the CKD-EPIcr (2020) equation refit without race. The equation is recommended by the National Kidney Foundation - Kyrgyz Society of Nephrology Task Force. Blood VENOUS BLOOD / Unknown Venipuncture / Unknown 10/12/2022 5:46 AM EDT 10/12/2022 6:59 AM EDT us Unknown Provider CHEMISTRY ORDERABLES Final Resu lt [facility] 1 [facility] , [place] [address] [facility] [address] [place] [address] documented in this encounter Visit Diagnoses Diagnosis Encounter for general adult medical examination without abnormal findings Routine general medical examination at a health care facility documented in this encounter Care Teams Rim Fire Priming Tool Setter Relationship Specialty Start Date End Date Carlos Dean MD PCP - General 11/08/09 documented as of this encounter
--- OUTSIDE RECORDS SUMMARY | 2022-10-12 08:37 | XMS_ITS | Encounter Summary ---
Author Organization [place] [address] Care Team Providers Care Swimmer Name Role Phone Carlos Dean MD Primary Care Provider [phone] Encounter Details Date Type Department Care Team (Latest Contact Info) Description 10/12/2022 9:37 AM EDT Hospital Encounter [facility] Referral Lab 1 [place] [address] Encounter for general adult medical [...] and heating? Somewhat hard 01/20/2025 [facility] [place] of Occupat ional Health - Occupational Stress [...] money to get more. Never true 01/20/2025 [facility] Utilities Answer Date Recorded In the past 12 months has th e [employer], gas, oil, or water [employer] threatened to shut off services in your home? No 01/20/2025 [facility] HRSN CMS IP Transportation Answer D [...] 01/19/2025 4:05 PM Rodrick Gaxiola RN * [place] Suicide Severity Rating Scale (Q shift for [...] Visit [facility] [address] [facility] [address] [place] [address] Michelle Bull, TAX ACCOUNTANT [address] [place] [address] Scheduled Orders Name Type Priority Associated Diagnoses Orde r Schedule URINALYSIS Lab STAT Encounter for general adult medical examination without abnormal findings ONCE for 1 Occurrences starting 10/12/2022 until 11/16/2022 documented as of this encounter Visit Diagnoses Diagnosis Encounter for general adult medical examination without abnormal findings Routine general medical examination at a health care facility documented in this encounter Care Teams Swimmer Relationship Specialty Start Date End Date Carlos Dean MD PCP - General 11/08/09 documented as of this encounter
--- OUTSIDE RECORDS SUMMARY | 2022-10-12 08:38 | XMS_ITS | Encounter Summary ---
Author Organization [place] [address] Care Team Providers Care Grain Unloader Name Role Phone Carlos Dean MD Primary Care Provider [phone] Encounter Details Date Type Department Care Team (Latest Contact Info) Description 10/12/2022 9:38 AM EDT Hospital Encounter [facility] Referral Lab 1 [place] [address] Encounter for general adult medical [...] medical care, and heating? Somewhat hard 01/20/2025 [facility] [place] of Occupat ional Health - Occupational Stress [...] money to get more. Never true 01/20/2025 [facility] Utilities Answer Date Recorded In the past 12 months has th e [employer], gas, oil, or water [employer] threatened to shut off services in your home? No 01/20/2025 [facility] HRSN CMS IP Transportation Answer D ate [...] Assessment Author No 04/05/2015 1:44 PM Robert Carrazna RN * Question Answer Date of Assessment [...] 01/19/2025 4:05 PM Rodrick Gaxiola RN * [place] Suicide Severity Rating Scale (Q shift for [...] Office Visit [facility] [address] [facility] [address] [place] [address] Michelle Bull, [employer] [address] [place] [address] Scheduled Orders Name Type Priority [...] facility documented in this encounter Care Teams Grain Unloader Relationship Specialty Start Date End Date Carlos Dean MD PCP - General 11/08/09 documented as of this encounter
--- OUTSIDE RECORDS SUMMARY | 2022-10-15 04:00 | XMS_ITS | Encounter Summary ---
Author Organization [place] [address] Care Team Providers Care Farm Demonstrator Name Role Phone Carlos Dean MD Primary Care Provider [phone] Encounter Details Date Type Department Care Team (Latest Contact Info) Description 10/15/2022 5:00 AM EDT Hospital Encounter [facility] Referral Lab 1 [place] [address] Encounter for general adult medical [...] medical care, and heating? Somewhat hard 01/20/2025 [facility] [place] of Occupat ional Health - Occupational Stress [...] money to get more. Never true 01/20/2025 [facility] Utilities Answer Date Recorded In the past 12 months has th e [employer], gas, oil, or water [employer] threatened to shut off services in your home? No 01/20/2025 [facility] HRSN CMS IP Transportation Answer [...] 01/19/2025 4:05 PM Rodrick Gaxiola RN * [place] Suicide Severity Rating Scale (Q shift for [...] Visit [facility] [address] [facility] [address] [place] [address] Michelle Bull, RIBBON HAND [address] [place] [address] Scheduled Orders Name Type Priority Associated Diagnoses Orde r Schedule BASIC METABOLIC PANEL Lab Routine Encounter for general adult medical examination without abnormal findings ONCE for 1 Occurrences starting 10/15/2022 until 11/19/2022 documented as of this encounter Results * (ABNORMAL) BASIC METABOLIC PANEL (10/15/2022 9:28 AM EDT) Sodium 140 136 - 145 mmol/L 10/15/2022 10:14 AM EDT [facility] Potassium 4.4 3.5 - 5.0 mmol/L 10/15/2022 10:14 AM EDT [facility] Chloride 101 98 - 107 mmol/L 10/15/2022 10:14 AM EDT [facility] Total CO2 29 22 - 29 mmol/L 10/15/2022 10:14 AM EDT [facility] Anion Gap 10 7 - 16 mmol/L 10/15/2022 10:14 AM EDT [facility] Calcium 9.5 8.6 - 10.4 mg/dL 10/15/2022 10:14 AM EDT [facility] Glucose Lvl 70(L) 74 - 100 mg/dL 10/15/2022 10:14 AM EDT [facility] BUN 23(H) 6 - 20 mg/dL 10/15/2022 10:14 AM EDT [facility] Creatinine 1.25 0.51 - 1.30 mg/dL 10/15/2022 10:14 AM EDT [facility] eGFR (CKD-EPIcr 2020) 53(L) >=60 mL/min/1.7 3 m2 10/15/2022 10:14 AM EDT [facility] Comment:Estimated GFR was ca lculated using the CKD-EPIcr (2020) equation refit without race. The equation is recommended by the National Kidney Foundation - [place] Society of Nephrology Task Force. Blood VENOUS BLOOD / Unknown Venipuncture / Unknown 10/15/2022 9:28 AM EDT 10/15/2022 9:28 AM EDT us Unknown Provider CHEMISTRY ORDERABLES Final Resu lt [facility] [employer], [employer] [address] [facility], [address] [place] [id number] [facility] [address] [place], [place] [id number] documented in this encounter Visit Diagnoses Diagnosis Encounter for general adult medical examination without abnormal findings Routine general medical examination at a health care facility documented in this encounter Care Teams Farm Demonstrator Relationship Specialty Start Date End Date Carlos Dean MD PCP - General 11/08/09 documented as of this encounter
--- OUTSIDE RECORDS SUMMARY | 2022-10-15 04:00 | XMS_ITS | Encounter Summary ---
Author Organization [place] [address] Care Team Providers Care Alumni Coordinator Name Role Phone Carlos Dean MD Primary Care Provider [phone] Encounter Details Date Type Department Care Team (Latest Contact Info) Description 10/15/2022 5:00 AM EDT Hospital Encounter [facility] Referral Lab 1 [place] [address] Encounter for general adult medical [...] medical care, and heating? Somewhat hard 01/20/2025 [facility] [place] of Occupat ional Health - Occupational Stress [...] money to get more. Never true 01/20/2025 [facility] Utilities Answer Date Recorded In the past 12 months has th e [employer], gas, oil, or water [employer] threatened to shut off services in your home? No 01/20/2025 [facility] HRSN CMS IP Transportation Answer D [...] 01/19/2025 4:05 PM Rodrick Gaxiola RN * [place] Suicide Severity Rating Scale (Q shift for [...] Visit [facility] [address] [facility] [address] [place] [address] Michelle Bull, CASING TESTER [address] [place] [address] Scheduled Orders Name Type Priority [...] 9:55 AM EDT [facility] MCH 27.2 26.0 - 34.0 pg 10/15/2022 9:55 AM EDT [facility] MCHC 29.8(L) 30.7 - 35.5 g/dL 10/15/2022 9:55 AM EDT [facility] RDW 15.9(H) <=14.9 % 10/15/2022 9:55 AM EDT [facility] Platelet 409(H) 155 - 369 x10(3)/[facility] 10/15/2022 9:55 AM EDT [facility], [facility] MPV 9.7 8.8 - 12.5 fL 10/15/2022 9:55 AM EDT [facility] Neut Percent 64.2 % 10/15/2022 9:55 AM EDT [facility] Comment:Neutrophils equals s egs plus bands Imm Gran% 0.8 % 10/15/2022 9:55 AM EDT [facility] Comment:Automated count of m etamyelocytes, myelocytes and promyelocytes. Lymph Percent 23.2 % 10/15/2022 9:55 AM EDT [facility] Galax Percent 5.9 % 10/15/2022 9:55 AM EDT [facility] Eos Percent 5.4 % 10/15/2022 9:55 AM EDT [facility] Baso Percent 0.5 % 10/15/2022 9:55 AM EDT [facility] Neut # 6.3(H) 1.6 - 6.1 x10(3)/[facility] 10/15/2022 9:55 AM EDT [facility] Comment:Neutrophils equals s egs plus bands IMMGRAN# 0.1 0.0 - 0.1 x10(3)/[facility] 10/15/2022 9:55 AM EDT [facility] Comment:Automated count of m etamyelocytes, myelocytes and promyelocytes. An absolute IG <0.1 is reported as 0.0. Lymph # 2.3 1.2 - 3.9 x10(3)/[facility] 10/15/2022 9:55 AM EDT [facility] Galax # 0.6 0.3 - 0.9 x10(3)/[facility] 10/15/2022 9:55 AM EDT [facility] Eos# 0.5 0.0 - 0.5 x10(3)/[facility] 10/15/2022 9:55 AM EDT [facility] Baso # 0.1 0.0 - 0.1 x10(3)/[facility] 10/15/2022 9:55 AM EDT [facility] Blood VENOUS BLOOD / Unknown Venipuncture / Unknown 10/15/2022 9:28 AM EDT 10/15/2022 9:28 AM EDT us Unknown Provider HEMATOLOGY ORDERABLES Final Res ult [facility] [employer] [address] [place] [address] , [place] [address] documented in this encounter Visit Diagnoses Diagnosis Encounter for general adult medical examination without abnormal findings Routine general medical examination at a health care facility documented in this encounter Care Teams Alumni Coordinator Relationship Specialty Start Date End Date Carlos Dean MD PCP - General 11/08/09 documented as of this encounter
--- OUTSIDE RECORDS SUMMARY | 2022-10-17 04:00 | XMS_ITS | Encounter Summary ---
Author Organization [place] [address] Care Team Providers Care Key Worker Name Role Phone Carlos Dean MD Primary Care Provider [phone] Encounter Details Date Type Department Care Team (Latest Contact Info) Description 10/17/2022 5:00 AM EDT Hospital Encounter [facility] Referral Lab 1 [place] [address] Encounter for general adult medical [...] medical care, and heating? Somewhat hard 01/20/2025 [facility] of Occupat ional Health - Occupational Stress [...] money to get more. Never true 01/20/2025 [facility] Utilities Answer Date Recorded In the past 12 months has th e [employer], gas, oil, or water [employer] threatened to shut off services in your home? No 01/20/2025 [facility] HRSN CMS IP Transportation Answer D ate [...] 01/19/2025 4:05 PM Rodrick Gaxiola RN * [place] Suicide Severity Rating Scale (Q shift for [...] Office Visit [facility] [address] [facility] [address] [place] [id number] Michelle Bull, MANAGER SERVICE DESK [address] [place], [place] [id number] Scheduled Orders Name Type Priority Associated Diagnoses Orde r Schedule BASIC METABOLIC PANEL Lab Routine Encounter for general adult medical examination without abnormal findings ONCE for 1 Occurrences starting 10/17/2022 until 11/21/2022 BASIC METABOLIC PANEL Lab Routine Encounter for general adult medical examination without abnormal findings ONCE for 1 Occurrences starting 10/17/2022 until 11/21/2022 documented as of this encounter Visit Diagnoses Diagnosis Encounter for general adult medical examination without abnormal findings Routine general medical examination at a health care facility documented in this encounter Care Teams Key Worker Relationship Specialty Start Date End Date Carlos Dean MD PCP - General 11/08/09 documented as of this encounter
--- OUTSIDE RECORDS SUMMARY | 2022-10-17 04:00 | XMS_ITS | Encounter Summary ---
Author Organization [place] [address] Care Team Providers Care Bookkeeping Manager Name Role Phone Carlos Dean MD Primary Care Provider [phone] Encounter Details Date Type Department Care Team (Latest Contact Info) Description 10/17/2022 5:00 AM EDT Hospital Encounter [facility] Referral Lab 1 [place] [address] Encounter for general adult medical [...] medical care, and heating? Somewhat hard 01/20/2025 [facility] [place] of Occupat ional Health - Occupational Stress [...] money to get more. Never true 01/20/2025 [facility] Utilities Answer Date Recorded In the past 12 months has th e [employer], gas, oil, or water [employer] threatened to shut off services in your home? No 01/20/2025 [facility] HRSN CMS IP Transportation Answer [...] of Assessment Author No 04/05/2015 1:44 PM Rboert Carranza RN * Is the person blind [...] in doing things 0 01/20/2025 10:45 AM Judtih Guaman RN Feeling down, depressed, or hopeless [...] 01/19/2025 4:05 PM Rodrick Gaxiola RN * [place] Suicide Severity Rating Scale (Q shift for [...] Office Visit [facility] [address] [facility] [address] [place] [address] Michelle Bull, EMT BASIC [address] [place] [address] Scheduled Orders Name Type Priority Associated Diagnoses Orde r Schedule CBC WITH DIFF Lab Routine Encounter for general adult medical examination without abnormal findings ONCE for 1 Occurrences starting 10/17/2022 until 11/21/2022 CBC WITH DIFF Lab Routine Encounter for general adult medical examination without abnormal findings ONCE for 1 Occurrences starting 10/17/2022 until 11/21/2022 documented as of this encounter Visit Diagnoses Diagnosis Encounter for general adult medical examination without abnormal findings Routine general medical examination at a health care facility documented in this encounter Care Teams Bookkeeping Manager Relationship Specialty Start Date End Date Carlos Dean MD PCP - General 11/08/09 documented as of this encounter
--- OUTSIDE RECORDS SUMMARY | 2022-10-18 04:00 | XMS_ITS | Encounter Summary ---
Author Organization [place] [address] Care Team Providers Care Supervisor Winter Name Role Phone Carlos Dean MD Primary Care Provider [phone] Encounter Details Date Type Department Care Team (Latest Contact Info) Description 10/18/2022 5:00 AM EDT Hospital Encounter [facility] Referral Lab 1 [place] [address] Encounter for general adult medical [...] Somewhat hard 01/20/2025 [facility] of Occupat ional Health - Occupational Stress [...] money to get more. Never true 01/20/2025 [facility] Utilities Answer Date Recorded In the past 12 months has th e [employer], gas, oil, or water [employer] threatened to shut off services in your home? No 01/20/2025 [facility] HRSN CMS IP Transportation Answer [...] 01/19/2025 4:05 PM Rodrick Gaxiola RN * [place] Suicide Severity Rating Scale (Q shift for [...] Office Visit [facility] [address] [facility] [address] [place] [address] Michelle Bull, SUPERVISOR CAB [address] [place] [address] Scheduled Orders Name Type Priority Associated Diagnoses Orde r Schedule BASIC METABOLIC PANEL Lab Routine Encounter for general adult medical examination without abnormal findings ONCE for 1 Occurrences starting 10/18/2022 until 11/22/2022 documented as of this encounter Results * (ABNORMAL) BASIC METABOLIC PANEL (10/18/2022 4:45 AM EDT) Sodium 142 136 - 145 mmol/L 10/18/2022 6:53 AM EDT [facility] Potassium 4.7 3.5 - 5.0 mmol/L 10/18/2022 6:53 AM EDT [facility] Chloride 102 98 - 107 mmol/L 10/18/2022 6:53 AM EDT [facility] Total CO2 29 22 - 29 mmol/L 10/18/2022 6:53 AM EDT [facility] Anion Gap 11 7 - 16 mmol/L 10/18/2022 6:53 AM EDT [facility] Calcium 9.4 8.6 - 10.4 mg/dL 10/18/2022 6:53 AM EDT [facility] Glucose Lvl 109(H) 74 - 100 mg/dL 10/18/2022 6:53 AM EDT [facility] BUN 25(H) 6 - 20 mg/dL 10/18/2022 6:53 AM EDT [facility] Creatinine 1.45(H) 0.51 - 1.30 mg/dL 10/18/2022 6:53 AM EDT [facility] eGFR (CKD-EPIcr 2020) 44(L) >=60 mL/min/1.7 3 m2 10/18/2022 6:53 AM EDT [facility] Comment:Estimated GFR was ca lculated using the CKD-EPIcr (2020) equation refit without race. The equation is recommended by the National Kidney Foundation - [place] Society of Nephrology Task Force. Blood VENOUS BLOOD / Unknown Venipuncture / Unknown 10/18/2022 4:45 AM EDT 10/18/2022 6:15 AM EDT us Unknown Provider CHEMISTRY ORDERABLES Final Resu lt [facility] [employer] 1 [facility], [address] [place] [phone] [facility] [address] [place] [address] documented in this encounter Visit Diagnoses Diagnosis Encounter for general adult medical examination without abnormal findings Routine general medical examination at a health care facility documented in this encounter Care Teams Supervisor Winter Relationship Specialty Start Date End Date Carlos Dean MD PCP - General 11/08/09 documented as of this encounter
--- OUTSIDE RECORDS SUMMARY | 2022-10-22 12:54 | XMS_ITS | Encounter Summary ---
Author Organization [place] [address] Care Team Providers Care Sizing Sprayer Name Role Phone Carlos Dean MD Primary Care Provider [phone] Encounter Details Date Type Department Care Team (Latest Contact Info) Description 10/22/2022 1:54 PM EDT Hospital Encounter [facility] Referral Lab 1 [place] [address] Encounter for general adult medical [...] medical care, and heating? Somewhat hard 01/20/2025 [facility] [place] of Occupat ional Health - Occupational Stress [...] money to get more. Never true 01/20/2025 [facility] Utilities Answer Date Recorded In the past 12 months has th e [employer] gas, oil, or water [employer] threatened to shut off services in your home? No 01/20/2025 [facility] HRSN CMS IP Transportation Answer D [...] 01/19/2025 4:05 PM Rodrick Gaxiola RN * [place] Suicide Severity Rating Scale (Q shift for [...] Office Visit [facility] [address] [facility] [address] [place] [address] Michelle Bull, PATENT COUNSEL [address] [place], [place] [phone] documented as of this encounter Visit Diagnoses Diagnosis Encounter for general adult medical examination without abnormal findings Routine general medical examination at a health care facility documented in this encounter Care Teams Sizing Sprayer Relationship Specialty Start Date End Date Carlos Dean MD PCP - General 11/08/09 documented as of this encounter
--- OUTSIDE RECORDS SUMMARY | 2022-10-22 12:54 | XMS_ITS | Encounter Summary ---
Author Organization [place] [address] Care Team Providers Care Public Services Assistant Name Role Phone Carlos Dean MD Primary Care Provider [phone] Encounter Details Date Type Department Care Team (Latest Contact Info) Description 10/22/2022 1:54 PM EDT Hospital Encounter [facility] Referral Lab 1 [place] [address] Encounter for general adult medical [...] medical care, and heating? Somewhat hard 01/20/2025 [facility] [place] of Occupat ional Health - Occupational Stress [...] money to get more. Never true 01/20/2025 [facility] Utilities Answer Date Recorded In the past 12 months has th e [employer], gas, oil, or water [employer] threatened to shut off services in your home? No 01/20/2025 [facility] HRSN CMS IP Transportation Answer D ate [...] 01/19/2025 4:05 PM Rodrick Gaxiola RN * [place] Suicide Severity Rating Scale (Q shift for [...] Edg [address] [facility] [address] [place] [address] Michelle Bull, SPORTS WRITER [address] [place] [address] Scheduled Orders Name Type Priority [...] facility documented in this encounter Care Teams Public Services Assistant Relationship Specialty Start Date End Date Carlos Dean MD PCP - General 11/08/09 documented as of this encounter
--- OUTSIDE RECORDS SUMMARY | 2023-12-04 04:00 | XMS_ITS | Encounter Summary ---
Author Organization [place] [address] Care Team Providers Care Receptionist/Telephone Operator Name Role Phone Carlos Dean MD Primary Care Provider [phone] Encounter Details Date Type Department Care Team (Latest Contact Info) Description 12/04/2023 5:00 AM EDT Hospital Encounter SE Referral Lab 1 [place] [address] Tang Catherine MD [address] [place] [address] [place] [phone] Encounter for general adult medical examination [...] medical care, and heating? Somewhat hard 01/20/2025 [facility] [place] of Occupat ional Health - Occupational Stress [...] the past 12 months has th e [employer], gas, oil, or water [employer] threatened to shut off services in your [...] 4:00 PM NASRINT Rodrick Mcgovern RN * Drug Screening Score Answer Date of Assessment Author 0 01/19/2025 4:00 PM NASRINT Rodrick Mcgovern RN * Question Answer Date of Assessment Author How often do you have a drin k containing alcohol? 0 01/19/2025 4:00 PM EDT Raina Mcgovern RN How many drinks containing a lcohol do you have on a typical day when you are drinking? 0 01/19/2025 4:00 PM NASRINT Raina Mcgovern RN How often do you have six or more drinks on one occasion? 0 01/19/2025 4:00 PM NASRINT Raina Mcgovern RN AUDIT-C to Determine Rows 4-10 0 01/19/2025 4:00 PM NASRINT Raina Mcgovern RN * Is the person deaf or does he/she have serious difficulty hearing? Answer Date of Assessment Author No 04/05/2015 1:44 PM Robert Carranza, RN * Is the person blind or does he/she have serious difficulty seeing even when wearing glasses? Answer Date of Assessment Author No 04/05/2015 1:44 PM Robert Carranza, RN * Does this person have serious difficulty walking or climbing stairs? Answer Date of Assessment Author No 04/05/2015 1:44 PM Robert Carranza, RN * Does this person have difficulty dressing or bathing? Answer Date of Assessment Author No 04/05/2015 1:44 PM Robert Carranza, RN * Because of a physical, mental or emotional condition, does this person have difficulty doing errands alone such as visiting a doctor's office or shopping? Answer Date of Assessment Author No 04/05/2015 1:44 PM Robert Carranza, ENR[place] * Question Answer Date of Assessment Author [...] Assessment Author Low Risk 01/19/2025 4:05 PM NASRINT Rodrick Mcgovern RN * [place] Suicide Severity Rating Scale (Q shift for [...] to question 6) 0 01/19/2025 4:05 PM EDT Mcgovern, A my, RN 6. Have you ever done anythi ng, started to do anything, or prepared to do anything to end your life? 0 01/19/2025 4:05 PM EDT Dhiraj Mcgovern RN documented as of this encounter Mental Status * Because of a physical, mental or emotional condition, does this person have serious difficulty concentrating, remembering or making decisions? Answer Entry Date Author No 04/05/2015 1:44 PM EST Keli, Robert fernandez RN documented in this encounter Plan of Treatment Upcoming Encounters Date Type Department Care Team (Late st Contact Info) Description 03/08/2025 2:00 PM EST Office Visit [facility] [address] [facility] [address] [place] [address] Michelle Bull, LINE MAINTENANCE TECHNICIAN [address] [place] [address] documented as of this encounter [...] 8:10 AM EDT [facility] Glucose Lvl 251(H) 70 - 99 mg/dL 12/04/2023 8:10 AM EDT [facility] BUN 15 6 - 20 mg/dL 12/04/2023 8:10 AM EDT [facility] Creatinine 0.94 0.51 - 1.30 mg/dL 12/04/2023 8:10 AM EDT [facility] Albumin 3.6 3.5 - 5.2 gm/dL 12/04/2023 8:10 AM EDT [facility] Total Protein 5.9(L) 6.4 - 8.3 gm/dL 12/04/2023 8:10 AM EDT [facility] Bili Total 0.5 0.2 - 1.3 mg/dL 12/04/2023 8:10 AM EDT [facility] ALT 18 <=41 U/L 12/04/2023 8:10 AM EDT [facility] AST 17 <=40 U/L 12/04/2023 8:10 AM EDT [facility] Alk Phos 74 36 - 123 U/L 12/04/2023 8:10 AM EDT [facility] eGFR (CKD-EPIcr 2020) 74 >=60 mL/min/1.7 3 m2 12/04/2023 8:10 AM EDT [facility] Comment:Estimated GFR was ca lculated using the CKD-EPIcr (2020) equation refit without race. The equation is recommended by the National Kidney Foundation - [place] Society of Nephrology Task Force. Blood VENOUS BLOOD / Unknown Venipuncture / Unknown 12/04/2023 4:00 AM EDT 12/04/2023 6:56 AM EDT us Tang Catherine MD CHEMISTRY ORDERABLES Final Resu lt [facility] 1 [facility], [place] [address] [facility] [address] [place] [address] documented in this encounter Visit Diagnoses Diagnosis Encounter for general adult medical examination without abnormal findings Routine general medical examination at a health care facility documented in this encounter Care Teams Receptionist/Telephone Operator Relationship Specialty Start Date End Date Carlos Dean MD PCP - General 11/08/09 documented as of this encounter
--- OUTSIDE RECORDS SUMMARY | 2023-12-04 04:00 | XMS_ITS | Encounter Summary ---
Author Organization [place] [address] Care Team Providers Care Director Sales Support Name Role Phone Carlos Dean MD Primary Care Provider [phone] Encounter Details Date Type Department Care Team (Latest Contact Info) Description 12/04/2023 5:00 AM EDT Hospital Encounter SE Referral Lab 1 [place] [address] Tang Catherine MD [address] [place] [address] [place] [phone] Encounter for general adult medical examination [...] medical care, and heating? Somewhat hard 01/20/2025 [facility] [place] of Occupat ional Health - Occupational Stress [...] money to get more. Never true 01/20/2025 [facility] Utilities Answer Date Recorded In the past 12 months has th e [employer], gas, oil, or water [employer] threatened to shut off services in your home? No 01/20/2025 [facility] HRSN CMS IP Transportation [...] 4:05 PM NASRINT Rodrick Mcgovern RN * [place] Suicide Severity Rating Scale (Q shift for [...] Author No 04/05/2015 1:44 PM EST Robert Dickey, RN documented in this encounter Plan of Treatment Upcoming Encounters Date Type Department Care Team (Late st Contact Info) Description 03/08/2025 2:00 PM EST Office Visit [facility] Ed[facility] [address] [facility] [address] [place] [address] Michelle Bull, CURTIS [address] [place] [address] documented as of this encounter Results * (ABNORMAL) PREALBUMIN (12/04/2023 4:00 AM EDT) Prealbumin 15.9(L) 20.0 - 40.0 mg/dL 12/04/2023 7:54 AM EDT [facility] Blood VENOUS BLOOD / Unknown Venipuncture / Unknown 12/04/2023 4:00 AM EDT 12/04/2023 6:56 AM EDT us Tang Catherine MD CHEMISTRY ORDERABLES Final Resu lt [facility] [address] [facility] [address], [place] [address] documented in this encounter Visit Diagnoses Diagnosis Encounter for general adult medical examination without abnormal findings Routine general medical examination at a health care facility documented in this encounter Care Teams Director Sales Support Relationship Specialty Start Date End Date Carlos Dean MD PCP - General 11/08/09 documented as of this encounter
--- OUTSIDE RECORDS SUMMARY | 2024-12-31 13:00 | XMS_ITS | Encounter Summary ---
Author Organization [place] [address] Care Team Providers Care Pad Making Machine Operator Name Role Phone Carlos Dean MD Primary Care Provider [phone] Reason for Visit * Reason Comments New Patient referred by Dr. Thalia Bain at [facility] for AF ablation. Meds per pt report Encounter Details Date Type Department Care Team (Late st Contact Info) Description 12/31/2024 2:00 PM EDT Office Visit [facility] [address] [facility] [address] [place] [address] Mahamed Hilliard MD [address] [place] [id number] Atrial fibrillation, unspecified type (HCC) (Primary Dx) Social History Tobacco Use Types Packs/Day Years [...] on file documented as of this encounter Last Filed Vital Signs Vital Sign Reading Time Taken Comments Blood Pressure 130/90 12/31/2024 2:25 PM EDT Pulse 81 12/31/2024 2:25 PM EDT Temperature - - Respiratory Rate - - Oxygen Saturation 98% 12/31/2024 2:25 PM EDT Inhaled Oxygen Concentration - - Weight - - Height - - Body Mass Index - - documented in this encounter Functional Status * Is the [...] Robert Carranza RN documented in this encounter Progress Notes * Mahamed Hilliard MD - 12/31/2024 2:00 PM EDT Subjective: Patient ID: Eliz Maldonado is a 49 y.o. female. Chief Complaint Patient presents with New Patient referred by Dr. Selvin Bain at [facility] for AF ablation. Meds per pt report We have been asked by Dr. Braxton ref. provider found to provide initial consultation on Eliz Referred for evaluation of Afib. Symptomatic with palpitations and SOB. Hospitalized twice in the past couple of months. Abstract Chronicity: AF. Associated symptoms include chest pain and weakness. Pertinent negatives include noarthralgias, coughing, diaphoresis, fatigue, headaches, myalgias, rash, urinary symptoms or vertigo. Their chronic cardiac conditions are: Problem List Cardiology Problems Essential hypertension Migraine headache Chest pain at rest Chest pain, precordial Tobacco Use History[1] Current Medications[2] Patients past medical, family and social histories were reviewed and updated. There were no changesexcept as noted. Review of Systems Constitutional: Positive for malaise/fatigue. Negative for diaphoresis, fatigue, weight gain and weight loss. HENT: Negative for nosebleeds. Cardiovascular: Positive for chest pain, dyspnea on exertion and palpitations (feels like her heartis beating out of her chest). Negative for leg swelling and syncope. Respiratory: Positive for shortness of breath. Negative for cough. Skin: Negative for flushing and rash. Musculoskeletal: Negative for arthralgias, falls and myalgias. Gastrointestinal: Negative for heartburn and melena. Neurological: Positive for weakness. Negative for dizziness, headaches and vertigo. Psychiatric/Behavioral: Negative for depression. The patient does not have insomnia. Allergic/Immunologic: Negative for hives and persistent infections. Objective: No data found. There is no height or weight on file to calculate BMI. Physical Exam Constitutional: She appears healthy. No distress. HENT: Mouth/Throat: Oropharynx is clear. Eyes: Pupils are equal, round, and reactive to light. Cardiovascular: Regular rhythm. Pulmonary/Chest: Breath sounds normal. She exhibits no tenderness. Abdominal: Soft. Musculoskeletal: General: Normal range of motion. Cervical back: Normal range of motion. Neurological: She is alert and oriented to person, place, and time. Skin: Skin is warm and dry. Relevant Studies ECG: NSR No results found for this visit on 12/31/24. Lab Review Lab Results Component Value Date WBC 9.7 12/04/2023 HGB 11.7 12/04/2023 PLT 235 12/04/2023 Lab Results Component Value Date NA 140 12/04/2023 K 4.0 12/04/2023 BUN 15 12/04/2023 CREATININE 0.94 12/04/2023 GLU 251 (H) 12/04/2023 ALT 18 12/04/2023 ALKPHOS 74 12/04/2023 Lab Results Component Value Date TSH 2.130 10/21/2018 Lab Results Component Value Date CHOLESTEROL 132 10/21/2018 HDL 40 10/21/2018 LDLCALC 60 10/21/2018 TRIG 158 (H) 10/21/2018 Lab Results Component Value Date INR 1.10 10/21/2018 [id number] Stroke Risk Points: N/A Values used to calculate this score: Points Metrics 0 Has Congestive Heart Failure: No 1 Has Hypertension: Yes 0 Age: 49 1 Has Diabetes: Yes 0 Had Stroke: No Had TIA: No Had Thromboembolism: No 0 Has Vascular Disease: No 1 Clinically Relevant Sex: Female Assessment & Plan 1) PAF: has failed a number of meds. Treatment options discussed indetail. She would like to pursueablation. The risks, benefits and alternatives of the ablation procedure were discussed with the patient. The risks including, but not limited to, the risks of bleeding, infection, radiation exposure, injury to vascular, cardiac and surrounding structures (including pneumothorax), stroke, cardiac perforation, tamponade, need for emergent open heart surgery, need for pacemaker implantation, Injuryto the phrenic nerve, injury to the esophagus, myocardial infarction and were discussed in detail. The patient opted to proceed with the ablation. CHADS-Vasc: 3. Continue eliquis. Mahamed Hilliard MD, PhD Electrophysiology Follow up as scheduled. [1] Social History Tobacco Use Smoking Status Former Current packs/day: 0.00 Average packs/day: 0.3 packs/day for 23.1 years (5.8 ttl pk-yrs) Types: Cigarettes Start date: 07/05/1994 Quit date: 08/23/2017 Years since quittin.3 Smokeless Tobacco Never [2] Current Outpatient Medications Medication Sig Dispense Refill albuterol (PROVENTIL) 2.5 mg /3 mL (0.083 %) Inhl Solution for Nebulization Take 2.5 mg by nebulization every 6 hours as needed for Wheezing. amLODIPine (NORVASC) 10 mg Oral Tablet Take 10 mg by mouth daily. dilTIAZem 180 mg Oral Capsule, Sust. Release 24 hr FLUoxetine (PROZAC) 20 mg Oral Capsule Take 40 mg by mouth daily. hydrALAZINE (APRESOLINE) 50 mg Oral Tablet Take 50 mg by mouth 4 times daily. hydroCHLOROthiazide (HYDRODIURIL) 25 mg Oral Tablet Take by mouth. Insulin glargine (LANTUS) 100 unit/mL (3 mL) SubQ Insulin Pen Subcutaneous (Inject under the skin) 100 Units every evening. insulin lispro (HUMALOG KWIKPEN INSULIN) 100 unit/mL SubQ Insulin Pen Subcutaneous (Inject under the skin) 0-12 Units 3 times daily (with meals). 1 Each 0 lisinopril (PRINIVIL;ZESTRIL) 40 mg tablet Take 40 mg by mouth 2 times daily. multivitamin (THERAGRAN) Oral Tablet Take 1 Tab by mouth daily. oxyCODONE (ROXICODONE) 5 mg Oral Tablet potassium chloride (K-DUR) 10 mEq Oral Tablet Sustained Release Take 10 mEq by mouth daily. traZODone (DESYREL) 100 mg Oral Tablet Take 100 mg by mouth nightly. (Patient not taking: Reported on 12/29/2021) No current facility-administered medications for this visit. documented in this encounter Miscellaneous Notes * Patient Instructions - Devin Galeano MA - 12/31/2024 2:00 PM EDT You may be contacted by mail or e-mail to participate in a patient satisfaction survey regarding your office visit today. We value your opinion and depend on your feedback to make improvements and provide you with the best possible experience while receiving high quality medical treatment. Your time in completing this survey is greatly appreciated. Please contact your primary care physician for diabetes management and to discuss your need for a pneumo vaccine. documented in this encounter Plan of Treatment Upcoming Encounters Date Type Department Care Team (Late st Contact Info) Description 03/08/2025 2:00 PM EST Office Visit [facility] [address] [facility] [address] [place] [address] Michelle Bull APRN [address] [place] [address] documented as of this encounter Procedures Procedure Name Priority Date/Time Associated Diagnosis Comments POCT EKG Routine 12/31/2024 2:19 PM EDT Atrial fibrillation, unspecified type (HCC) documented in this encounter Results * POCT EKG (12/31/2024 2:19 PM EDT) 12/31/2024 2:19 PM EDT Impressions [facility] - 12/31/2024 2:19 PM EDT NSR Low voltage QRS Mahamed Hilliard MD POINT OF CARE CARDIOLOGY Final R esult [facility]ICE documented in this encounter Visit Diagnoses Diagnosis Atrial fibrillation, unspecified type (HCC)- Primary documented in this encounter Historical Medications * This list may reflect changes made after this encounter. desvenlafaxine 50 mg Oral Tablet Sustained Release 24 hr Take 1 tablet every day by oral route. HUMULIN R U-500, CONC, KWIKPEN 500 unit/mL (3 mL) SubQ Insulin Pen Inject 140 Units under the skin 2 times daily. 12/04/2024 FREESTYLE LANCETS 28 gauge Misc Misc 10/20/2024 losartan (COZAAR) 100 mg Oral Tablet Take 1 tablet every day by oral route. meclizine (ANTIVERT) 25 mg Oral Tablet Take 1 tablet 3 times a day by oral route as needed. metoprolol succinate ER (TOPROL-XL) 100 mg Oral Tablet Sustained Release 24 hr 12/15/2024 hydrOXYzine (ATARAX) 25 mg Oral Tablet Take 1 tablet every 6 hours by oral route as needed. HYDROcodone-aceta minophen (NORCO) 5-325 mg Oral Tablet Take 1 tablet 3 times a day by oral route as needed. DEXCOM G7 SENSOR Misc Device 12/04/2024 atorvastatin (LIPITOR) 40 mg Oral Tablet Take 40 mg by mouth nightly. at bedtime ELIQUIS 5 mg Oral Tablet Take 1 tablet twice a day by oral route. fUROsemide (LASIX) 40 mg Oral Tablet 11/28/2024 hydrALAZINE (APRESOLINE) 100 mg Oral Tablet 10/26/2024 traZODone (DESYREL) 150 mg Oral Tablet 10/06/2024 insulin aspart, niacinamide, 100 unit/mL (3 mL) SubQ Cartridge 7 units ac 01/20/2025 dilTIAZem 300 mg Oral Capsule, Sust. Release 24 hr 10/06/2024 01/20/2025 added in this encounter Care Teams Pad Making Machine Operator Relationship Specialty Start Date End Date Carlos Dean MD PCP - General 11/08/09 documented as of this encounter
--- OUTSIDE RECORDS SUMMARY | 2025-01-19 08:33 | XMS_ITS | Encounter Summary ---
Author Organization [place] [address] Care Team Providers Care Residential Leasing Manager Name Role Phone Carlos Dean MD Primary Care Provider [phone] Reason for Visit * Auth/Cert/Inpt Specialty Diagnoses / Procedures Referred By Contac t Referred To Contact Diagnoses Paroxysmal atrial fibrillation (HCC) Paroxysmal atrial fibrillation (HCC) [I48.0] Procedures MA COMPRE EP EVAL ABLTJ ATR FIB PULM VEIN ISOLATION MA ICAR CATH ABLATION DISCRETE MECHANISM ARRHYTHMIA MA INTRACARDIAC ELECTROPHYSIOLOGIC 3D MAPPING MA INTRACARD ECHOCARD W/THER/DX IVNTJ INCL IMG S&I PAROXYSMAL ATRIAL FIBRILLATION ABLATION WITH 3D MAPPING Referral ID Status Reason Start Date Expiration Date Visits Re quested Visits Authorized [id number] 1 1 Encounter Details Date Type Department Care Team (Latest Contact Info) Description 01/19/2025 9:33 AM EDT - 01/20/2025 12:50 PM EDT Hospital [place] [address] Michael Hilliard MD [address] [place] [id number] Paroxysmal atrial fibrillation (HCC) Discharge Disposition: Home or Self Care Social History Tobacco Use Types Packs/Day Years Used Date Smoking Tobacco: Former Cigarettes 0.3 23.1 0 07/05/1994 - 08/23/2017 Smokeless Tobacco: Never Tobacco Cessation:Counseling Given: Not Answered Alcohol Use Standard Drinks/Week Comments Yes 0 (1 standard drink = 0.6 oz pur e alcohol) occ PHQ-2 Answer Date Recorded PHQ-2 Total Score 1 01/20/2025 Overall Financial Resource Strain (CARDIA) Answe r Date Recorded How hard is it for you to pa y for the very basics like food, housing, medical care, and heating? Somewhat hard 01/20/2025 [facility] - Occupational Stress Questionnaire Answer Date Recorded [...] money to get more. Never true 01/20/2025 [facility] Utilities Answer Date Recorded In the past 12 months has th e electric, gas, oil, or water company threatened to shut off services in your home? No 01/20/2025 [facility] HRSN CMS IP Transportation Answer D [...] Sign Reading Time Taken Comments Blood Pressure 134/74 01/20/2025 8:54 AM EDT Pulse 72 01/20/2025 11:25 AM EDT Temperature 36.7 C (98.1 F) 01/20/2025 8:54 AM EDT Respiratory Rate 18 01/20/2025 8:54 AM EDT Oxygen Saturation 97% 01/20/2025 8:54 AM EDT Inhaled Oxygen Concentration - - Weight 164.7 kg (363 lb) 01/19/2025 5:22 PM EDT Height 170.2 cm (5' 7 ) 01/19/2025 5:22 PM EDT Body Mass Index 56.85 01/19/2025 5:22 PM EDT documented in this encounter Functional Status * Alcohol Screening Score Answer Date of Assessment Author 0 01/19/2025 4:00 PM EDT Rodrick Mcgovern RN * Drug Screening Score Answer Date of Assessment Author 0 01/19/2025 4:00 PM EDT Rodrick Mcgovern RN * Question Answer Date of Assessment Author How often do you have a drin k containing alcohol? 0 01/19/2025 4:00 PM EDT Raina Mcgovern RN How many drinks containing a lcohol do you have on a typical day when you are drinking? 0 01/19/2025 4:00 PM EDT Raina Mcgovern RN How often do you have six or more drinks on one occasion? 0 01/19/2025 4:00 PM EDT Raina Mcgovern RN AUDIT-C to Determine Rows [...] 04/05/2015 1:44 PM Robert Carranza, [place] * Because of a physical, mental or [...] 10:45 AM EDT Zuri Taveras RN * Suicide Severity Rating Answer Date of Assessment Author Low Risk 01/19/2025 4:05 PM EDT Rodrick Mcgovern RN * [place] Suicide Severity Rating Scale (Q shift for moderate and high) Question Answer Date of Assessment Author 1. In the past month, have y ou wished you were or wished you could go to sleep and not wake up? 1 01/19/2025 4:05 PM EDT Raian Mcgovern R N 2. In the past month, have y ou actually had any thoughts of killing yourself? (If no, skip to question 6) 0 01/19/2025 4:05 PM [place] Rodrick Mcgovern RN 6. Have you ever done anythi ng, started to do anything, or prepared to do anything to end your life? 0 01/19/2025 4:05 PM [place] Dhiraj Mcgovern RN documented as of this encounter Mental Status * Because of a physical, mental or emotional condition, does this person have serious difficulty concentrating, remembering or making decisions? Answer Entry Date Author No 04/05/2015 1:44 PM Robert Carranza RN documented in this encounter Discharge Summaries * Michael Hilliard MD - 01/20/2025 10:36 AM EDT Images from the original note were not included. [facility] Discharge Summary Patient Name: Eliz Daniels : 1975 Admit Date: 01/19/2025 Discharge Date: 01/20/2025 Admitting Physician: Michael Hilliard MD Discharge Physician: Michael Hilliard MD Reason for Hospitalization: Active Hospital Problems CKD (chronic kidney disease) Status post ablation of atrial fibrillation A-fib (HCC) *Paroxysmal atrial fibrillation (HCC) Depressive disorder Sleep apnea, obstructive Morbid obesity with BMI of 50.0-59.9, adult (HCC) Hyperlipidemia Diabetes mellitus (HCC) Essential hypertension Hospital Course/Significant Findings: Eliz Daniels 49 y.o. female with history of paroxysmal atrial fibrillation that has failed to maintain NSR on a number of medications. She was referred for AF ablation. Post Procedure Day #1: - No significant pleuritic chest pain or palpitations. No shortness of air. - No abdominal pain. No significant back or groin pain. - Suture removed from groin. - On exam: Groin site without hematoma. No significant ecchymosis or tenderness. - Tele monitor showed NSR. - Wheelchair bound - Tolerating diet. - No significant dysuria. Patient able to urinate without difficulty. - Routine post procedure instructions given. - Glucose elevated during admission and prior to admission. Hospitalist was contacted by on-call physician to evaluate/Tx. Patient reports she recently started on new medication for Tx. She's scheduled to see an retail security professional outpatient. Discussed with her/family the need to control blood sugars to avoid complications from her diabetes. Procedures Performed: Successful PVI for PAF Successful CTI line for typical atrial flutter with TCL 250 msec Right jae line Consults: Consulting: Provider Bg Garcia, DO Discharge Exam: Vitals: 01/20/25 0854 BP: 134/74 Pulse: 76 Resp: 18 Temp: 98.1 ??F (36.7 ??C) SpO2: 97% Constitutional: Vital signs above. No distress Cardiovascular: Normal rate, regular rhythm, no edema Pulmonary/Chest: Bilateral respiratory sounds clear. Respirations easy Gastrointestinal: Soft. Bowel sounds present. Musculoskeletal: no cyanosis, right leg amputation Neurological: Alert and oriented x 3. No gross deficit Hematological: No abnormal bruising, no petechiae Skin: Warm and dry. No rash noted Psychiatric: Normal mood, affect, and behavior [id number] Stroke Risk Points: 3 Values used to calculate this score: Points Metrics 0 Has Congestive Heart Failure: No 1 Has Hypertension: Yes 0 Age: 49 1 Has Diabetes: Yes 0 Had Stroke: No Had TIA: No Had Thromboembolism: No 0 Has Vascular Disease: No 1 Clinically Relevant Sex: Female Discharge Diagnoses: Paroxysmal atrial fibrillation (HCC) Condition at Discharge: good Disposition: Home Discharge Medications:: Medication List START taking these medications pantoprazole 40 mg Tbec Dose: 40 mg Qty: 60 Tablet Refills: 0 Commonly known as: PROTONIX 40 mg, Oral, 2 TIMES DAILY, For 1 month only CHANGE how you take these medications traZODone 150 mg Tab Refills: 0 Commonly known as: DESYREL What changed: Another medication with the same name was removed. Continue taking this medication, and follow the directions you see here. CONTINUE taking these medications amLODIPine 10 mg Tab Dose: 10 mg Refills: 0 Commonly known as: NORVASC atorvastatin 40 mg Tab Dose: 40 mg Refills: 0 Commonly known as: LIPITOR desvenlafaxine 50 mg Tb24 Refills: 0 DEXCOM G7 SENSOR Evelia Refills: 0 Generic drug: Blood-Glucose Sensor ELIQUIS 5 mg Tab Refills: 0 Generic drug: apixaban FREESTYLE LANCETS 28 gauge Misc Refills: 0 Generic drug: lancets fUROsemide 40 mg Tab Refills: 0 Commonly known as: LASix HumuLIN R U-500 (Conc) Kwikpen 500 unit/mL (3 mL) Inpn Dose: 140 Units Refills: 0 Generic drug: insulin regular hum U-500 conc * hydrALAZINE 50 mg Tab Dose: 50 mg Refills: 0 Commonly known as: APRESOLINE * hydrALAZINE 100 mg Tab Refills: 0 Commonly known as: APRESOLINE hydroCHLOROthiazide 25 mg Tab Refills: 0 HYDROcodone-acetaminophen 5-325 mg Tab Refills: 0 Commonly known as: NORCO hydrOXYzine 25 mg Tab Refills: 0 Commonly known as: ATARAX losartan 100 mg Tab Refills: 0 Commonly known as: COZAAR meclizine 25 mg Tab Refills: 0 Commonly known as: ANTIVERT metoprolol succinate ER 100 mg Tb24 Refills: 0 Commonly known as: TOPROL-XL multivitamin Tab Dose: 1 Tablet Refills: 0 Commonly known as: THERAGRAN potassium chloride 10 mEq Tbsr Dose: 10 mEq Refills: 0 Commonly known as: KLOR-CON * This list has 2 medication(s) that are the same as other medications prescribed for you. Read thedirections carefully, and ask your doctor or other care provider to review them with you. STOP taking these medications albuterol 2.5 mg /3 mL (0.083 %) Nebu Commonly known as: PROVENTIL dilTIAZem 180 mg Cp24 dilTIAZem 300 mg Cp24 insulin aspart (niacinamide) 100 unit/mL (3 mL) Crtg insulin glargine 100 unit/mL (3 mL) Inpn Commonly known as: LANTUS insulin lispro 100 unit/mL Inpn Commonly known as: HumaLOG KwikPen Insulin lisinopriL 40 mg Tab Commonly known as: PRINIVIL;ZESTril oxyCODONE 5 mg Tab Commonly known as: ROXICODONE Where to Get Your Medications These medications were sent to [facility] [address] [facility] [address] Hours: Saturday-Saturday 8:00am - 6:30pm Saturday-Saturday 9:00am - 5:00pm pantoprazole [facility] Follow Up: Michelle Bull APRN [address] [address] Follow up on 03/08/2025 at 2:00 pm Signed: Stephanie Arias APRN 01/20/2025 10:42 AM documented in this encounter Discharge Instructions * Discharge Instructions* Stephanie Arias APRN - 01/19/2025 11:14 AM EDT Images from the original note were not included. Post-Procedure Electrophysiology Study/Atrial Fibrillation Ablation Instructions Immediately after the procedure: You may stay overnight in the hospital. If you have a dressing at your groin site post-procedure, please remove the dressing the next day and leave the dressing off. You may have a suture at the site. If you do have a suture, it will be removed before you leave thehospital. You may have some bruising at the groin site of the procedure. If you notice any bleeding, please contact the doctor. Restrictions: Please refrain from soaking in a bathtub, hot tub, or pool for a week post- procedure. You may shower the day after the procedure. Gently pat the area dry. Please refrain from applying any lotions, ointments, or creams to your incision site for at least 1week. Please refrain from lifting more than 10 to 15 pounds and avoid strenuous exercise for a week afteryour procedure. After you go home: You will be sent home with blood thinners (Eliquis, Xarelto, Coumadin, or Pradaxa). You may be senthome with an antiarrhythmic medication such as amiodarone, sotalol, or flecainide. You will stay onthese medications for at least six weeks to three months after the procedure. Your provider will discuss any medication changes at your follow-up appointment. You may have a medication called a Proton Pump Inhibitor (examples: Protonix, Prilosec, Nexium) prescribed after your procedure for irritation to your esophagus. This is temporary--you can stop it when the prescription runs out. Do NOT stop your blood thinners unless you are instructed to do so by your provider. You are at a higher risk for stroke for the first 6 weeks after your procedure. You will be seen in the office by a provider 6 weeks after your procedure. If you have any shortness of breath or trouble/pain with swallowing after the procedure, please contact the office. It is common to have chest pain or chest soreness when you take a deep breath after your ablation. You may use Tylenol for pain. You may use an ice pack at the groin site for 20-30 minutes at a time for pain. Do not apply directly to skin. You may see in your MyChart under Test Results Activated Clotting Time . This is a test that is used to determine when to pull the catheter post procedure. The level will appear elevated to avoid clots during the procedure. Blanking period: The first 3 months after your ablation is called the blanking period. You may have episodes of palpitations/fluttering during this time, as the heart tissue is still inflamed and takes time to heal. Please call your doctor if you have: Prolonged heart racing after the procedure; Severe chest pain when you take a deep breath or chest pain that is worse when you are lying down; Shortness of breath or an increase in shortness of breath from your baseline; Any bleeding at your groin site; Significant pain at your groin site; Or any questions about your medications. [facility] [address] [place] [address] [address] [place] [address] +++++++++++++++++++++++++++++++++++++++++++++++++++++++++++++++++++ [facility] Discharge Instructions - Following Anesthesia We appreciate the opportunity to care for you today! Here are a few reminders as you head home: A responsible adult, 18 years or older must be in attendance until tomorrow morning. Rest quietly today. May resume usual diet as tolerated or as directed by your surgeon. Do not drive or operate any machinery until tomorrow morning or as instructed. Do not make any legal or important decisions for the next 24 hours. Do not drink alcoholic beverages or take sleeping pills for 24 hours unless otherwise directed. If you received a nerve block for post-operative pain control, protect your blocked arm/leg. It maybe numb. Carefully pad your limb to prevent pressure sores and other injuries. Be careful with applying cold/warm to the blocked limb. Numbness will alter the sensation of the limb and could damage your skin if you cannot correctly feel the temperature. If you have questions or concerns regarding your anesthesia experience, please call our office at . Get Well Soon! [facility] +++++++++++++++++++++++++++++++++++++++++++++++++++++++++++++++++++ documented in this encounter Medications at Time of Discharge amLODIPine (NORVASC) 10 mg Oral Tablet Take 10 mg by mouth daily. atorvastatin (LIPITOR) 40 mg Oral Tablet Take 40 mg by mouth nightly. at bedtime desvenlafaxine 50 mg Oral Tablet Sustained Release 24 hr Take 1 tablet every day by oral route. DEXCOM G7 SENSOR [facility] Device 12/04/2024 ELIQUIS 5 mg Oral Tablet Take 1 tablet twice a day by oral route. FREESTYLE LANCETS 28 gauge [facility] Misc 10/20/2024 fUROsemide (LASIX) 40 mg Oral Tablet 11/28/2024 HUMULIN R U-500, CONC, KWIKPEN 500 unit/mL (3 mL) SubQ Insulin Pen Inject 140 Units under the skin 2 times daily. 12/04/2024 hydrALAZINE (APRESOLINE) 100 mg Oral Tablet 10/26/2024 hydrALAZINE (APRESOLINE) 50 mg Oral Tablet Take 50 mg by mouth 4 times daily. hydroCHLOROthiazi de (HYDRODIURIL) 25 mg Oral Tablet Take by mouth. HYDROcodone-aceta minophen (NORCO) 5-325 mg Oral Tablet Take 1 tablet 3 times a day by oral route as needed. hydrOXYzine (ATARAX) 25 mg Oral Tablet Take 1 tablet every 6 hours by oral route as needed. losartan (COZAAR) 100 mg Oral Tablet Take 1 tablet every day by oral route. meclizine (ANTIVERT) 25 mg Oral Tablet Take 1 tablet 3 times a day by oral route as needed. metoprolol succinate ER (TOPROL-XL) 100 mg Oral Tablet Sustained Release 24 hr 12/15/2024 multivitamin (THERAGRAN) Oral Tablet Take 1 Tab by mouth daily. pantoprazole (PROTONIX) 40 mg Oral Tablet, Delayed Release (E.C.) Take 1 Tablet by mouth 2 times daily. For 1 month only 60 Tablet 01/20/2025 potassium chloride (K-DUR) 10 mEq Oral Tablet Sustained Release Take 10 mEq by mouth daily. traZODone (DESYREL) 150 mg Oral Tablet 10/06/2024 documented as of this encounter Ordered Prescriptions Prescription Sig Dispense Quantity Refills Last Filled Start Date End Date pantoprazole (PROTONIX) 40 mg Oral Tablet, Delayed Release (E.C.) Take 1 Tablet by mouth 2 times daily. For 1 month only 60 Tablet 01/20/2025 documented in this encounter Discharge Disposition Disposition Code Departure Means Destination Comment s Home or Self Care Wheelchair Home documented in this encounter Progress Notes * Zuri Wilson RN - 01/20/2025 10:50 AM EDT 01/20/25 1046 Discharge Planning Evaluation Completed by CC/SW Yes Referral Source Chart review Who you interviewed In person interview with patient Mental Status Alert and oriented Decision Maker Patient Who does pt identify as their caregiver/support person who will be their active partner in the dc planning process Pt identified caregiver/support person for dc planning process Caregiver Name Cornelius-spouse Caregiver Does patient need grief counsellor? No Activities of Daily Living Prior to Admission Needs assistance with ADLS DME Used at Home Wheelchair;Bedside Commode;Hospital Bed;Walker Wheelchair type Manual Walker type 2 wheel Patient's Living Arrangments Prior to Admission? Private Residence With Other(s) Private Residence With Other(s) Spouse/Significant Other Support Systems Spouse/Significant Other;Parent Is PCP listed on facesheet correct? Yes Quality of Support System Adequate Follow Up Assigned To: Referral not needed concern identified and addressed by Computer Security Specialist Anticipated post-acute care needs Home with OP Follow Up Discussed discharge plans with Patient/Family/Caregiver/Support Person Yes, Discussed with patient and caregiver/support person Actual Discharge Plan 01/20/25 CC INITIAL and FINAL NOTE: Pt admitted for Paroxysmal atrial fibrillation. Spoke with pt and spouse at bedside. PCP is Dr Dean. Pharmacy is [facility] and denies any issuesaffording medications. No [facility], but has used in the past. See DME above. Pt needs assistance with ADL's and lives with spouse, Cornelius ([phone]), and he can transport home at d/c. No needs identified at this time. CC to sign off. Final Note Care Coordination Discharge Ready? Yes Discharge to Home with Family Post Acute Provider [facility] DME Arranged at Discharge None Transportation at Discharge Personal vehicle Date Expected 01/20/25 Confirmed Discharge Transportation Plan? Yes Patient Aware and Agrees with DC Plan Yes Primary Caregiver/Legal Decision Maker aware and agree with Discharge Plan Yes Name of Family member notified Cornelius Family Member Notified Relationship to Patient Legal Next of Kin Does family and/or caregiver verbalize readiness, willingness, and ability to provide or support patient's self-management activities as appropriate? Yes, patient's primary caregiver reports no concerns regarding discharge plan MD Aware of Plan Yes RN Notified of Plan Yes * Bg Garcia DO - 01/20/2025 8:54 AM EDTAssociated Problem(s): Paroxysmal atrial fibrillation (HCC) -s/p ablation with 3D mapping 01/19 -toproxl XL -Eliquis -Management per EP * Bg Garcia DO - 01/20/2025 8:54 AM EDTAssociated Problem(s): Status post ablation of atrial fibrillation -s/p ablation with 3D mapping 01/19 -toproxl XL -Eliquis -Management per EP * Bg Garcia DO - 01/20/2025 8:54 AM EDTAssociated Problem(s): Essential hypertension -BP stable 134/74 -Continue norvasc, HCTZX, cozaar, toprol xl * Bg Garcia DO - 01/20/2025 8:54 AM EDTAssociated Problem(s): Diabetes mellitus (HCC) -Uncontrolled -A1c 8.9 -Reports regimen has recently been adjusted over past two months. Has been taking U500 140U bid forabout two months, typically runs BG 200s. Noted occasional low when bumped up to 150U bid. -Last dose of insulin/U500 was AM 01/18 -Resume U500 at slightly lower dose 120U bid. Patient is hopeful to return home this date and resume as prescribed. -Change to carb controlled diet -Close monitoring of BG and follow up with provider on discharge discussed * Bg Garcia DO - 01/20/2025 8:54 AM EDTAssociated Problem(s): Morbid obesity with BMI of 50.0-59.9, adult (HCC) -Complicates all aspects of care * Bg Garcia DO - 01/20/2025 8:54 AM EDTAssociated Problem(s): Sleep apnea, obstructive -Unable to tolerate mask * Bg Garcia DO - 01/20/2025 8:54 AM EDTAssociated Problem(s): Depressive disorder -Continue pristiq * Bg Garcia DO - 01/20/2025 8:54 AM EDTAssociated Problem(s): Hyperlipidemia -Statin * Bg Garcia DO - 01/20/2025 8:54 AM EDTAssociated Problem(s): CKD (chronic kidney disease) -Renal function overall stable -Avoid nephrotoxic agents as able * Ame Chavarria RN - 01/20/2025 3:25 AM EDT Pt resting with VSS. A&Ox4. Chronic leg pain managed with PRN [place] and one time dose of flexeril. Denies SOA. IV without complication. R groin site is clean, dry, and intact with no signs of bleeding or hematoma. Call light and belongings in reach. Pt had no orders for insulin or BG checks. Message sent to air pollution control engineer for Judy ARCHER PA with following message, Pt is a diabetic and uses an insulin pen at home. BPA is firing that last twoBG were greater than >[address]. [address] insulin orders? Checked BG at 2313 since pt had already eaten her meal tray and had [facility] that her brought her before day shift had a chance to check her BG. BG was 548. Message sent to Ochoa May MD asking for a hospitalist c/s. Hospitalist c/s and Vandana Smith APRN messaged regarding elevated BG. Rechecked BG again at 2336 and it was 521. Instructed to give what the insulin calculator suggested, which was 24 units of insulin aspart. Rechecked BG one hour after insulin given and BG was 489. Messaged Vandana Smith APRN again was instructed to recheck BG 3 hours post insulin administration. Rechecked BG again at 0305 and BG was 422. Updated Vandana Smith APRN and a one time doseof 10 units of insulin aspart was ordered. documented in this encounter Procedure Notes * Michael Hilliard MD - 01/19/2025 2:15 PM EDT [facility] OPERATIVE/PROCEDURE NOTE Eliz Daniels Eugenia January 19, 2025 Body mass index is 56.85 kg/m??. PRE-OP DIAGNOSIS: Paroxysmal atrial fibrillation (HCC) [I48.0] POST-OP DIAGNOSIS: * No post-op diagnosis entered * PROCEDURE(S): Procedure(s): PAROXYSMAL ATRIAL FIBRILLATION ABLATION WITH 3D MAPPING SURGEON(S): Surgeons and Role: * Michael Hilliard MD - Primary ANESTHESIA: General SPECIMENS: * No specimens in log * ESTIMATED BLOOD LOSS (mls): < 50 ml *EBL MUST be documented as a numeric value FINDINGS: Successful PVI for PAF Successful CTI line for typical atrial flutter with TCL 250 msec Right jae line DISPOSITION/POST PROC COURSE: Routine post-op Figure 8 stitch right groin. Michael Hilliard MD Date: 01/19/2025 documented in this encounter Consult Notes * Bg Garcia DO - 01/20/2025 8:37 AM EDTAssociated Order(s): IP CONSULT TO HOSPITALIST [facility] Consult Note Name: Eliz Daniels : 1975 AGE: 49 y.o. PCP: Carlos Dean MD Admitting Physician: Bg Garcia DO Date of Admit: 01/19/2025 Chief Complaint: Uncontrolled BG History of Present Illness: Ms. Daniels is a 49yo female with PMHx of DM type II, VENTURA (untreated) and afib who was admitted 01/19after elective ablation with EP. She reports that prior to admission, she had been feeling well. Norecent fevers, chills. We are consulted for hyperglycemia. She reports that she takes U500 140U bidwith BG that typically run in 200s. Does not administer any short acting insulin throughout the day. Last dose of insulin was AM 01/18. After intervention yesterday, did not watch what she eats. Doesnot typically count carbs but tries to follow diabetic diet as best she can at home. Past Medical History[1] Surgical History[2] Prescriptions Prior to Admission[3] Allergies[4] Social History[5] Family History[6] Review of Systems: The listed systems were reviewed and reveal the following in addition to any already discussed in the HPI: Constitutional: No fever, chills, or weight loss Eyes: No visual disturbance HEENT: No headache, hearing loss, epistaxis, sore throat, or hoarseness Lungs: No SOB, cough, hemoptysis, or pleuritic chest pain Cardiovascular: No chest pain, PND, orthopnea, DELEON Endocrine: No polyuria, polydypsia, or polyphagia GI: No abdominal pain, nausea, vomiting, hematemesis, diarrhea, constipation, melena, hematochezia,or bright red blood per rectum : No dysuria, frequency, hesitancy, or hematuria Musculoskeletal: No myalgias or muscle weakness Neurologic: No focal numbness or weakness Skin: No edema, jaundice, or skin discoloration Psychiatric: + depression, anxiety Hematologic/Allergic: No history of bleeding or easy bruising, no clots OBJECTIVE: Physical Exam: Vitals: 01/20/25 0427 BP: 134/74 Pulse: 73 Resp: 18 Temp: 98.3 ??F (36.8 ??C) SpO2: 96% Weight: (!) 363 lb (164.7 kg) Constitutional: Well developed, adequently nourished, no acute distress, non- toxic appearance; obese Eyes: PERRL, conjunctiva normal, sclera clear HEENT: Atraumatic,mouth moist, no thrush Neck- normal range of motion, no tenderness, supple no LA TM JVD Respiratory: No respiratory distress, normal breath sounds, no rales, no wheezing Cardiovascular: Normal rate, normal rhythm, no murmurs, no gallops, no rubs GI: Soft, nondistended, + bowel sounds, nontender no mass, no rebound, no guarding :not examined Musculoskeletal: No edema, no tenderness, no deformities. Integument: Adequatly hydrated, no rash Lymphatic: No lymphadenopathy noted Neurologic: Alert & oriented x 3, moving all 4 limbs equally no gross focal deficits noted Psychiatric: Speech and behavior appropriate Labs: CBC: Lab Results Component Value Date WBC 13.9 (H) 01/20/2025 RBC 4.09 01/20/2025 HGB 11.5 01/20/2025 HCT 35.5 01/20/2025 MCV 86.8 01/20/2025 MCHC 32.4 01/20/2025 RDW 15.2 (H) 01/20/2025 MPV 9.5 01/20/2025 BMP: Lab Results Component Value Date NA 134 (L) 01/20/2025 K 4.5 01/20/2025 CL 97 (L) 01/20/2025 CO2 22 01/20/2025 BUN 23 (H) 01/20/2025 CREATININE 1.17 01/20/2025 CALCIUM 9.1 01/20/2025 GLU 337 (H) 01/20/2025 Hepatic: No results found for: ALKPHOS , ALT , AST , PROT , LABBILI , BILIDIR , IBILI , LABALBU No results found for: AMYLASE , LIPASE U/A:No results found for: SPECGRAV , UAPROTEIN , BLOODU , NITRITE , LEUKOCYTESUR , WBCUA , RBCUA Coagulation: No results found for: PT , INR , APTT Cardiac markers: No results found for: CKMB , MYOGLOBIN ABGs:No results found for: PH , PCO2 , PO2 , HCO3 , TCO2 , BASEEXCESS , O2SAT , INSPIREDO2 , SPECIMENTYPE Radiology: EK EKG 12 LEAD Result Date: 01/20/2025 [facility] [place] Test Date: 2025-01-19 Pat Name: [facility] Department: DEPID Room: [facility] Gender: Female Black Mill Operator: HEIDY : 1975 Requested By: MICHAEL Juarez Order Number: [id number] Reading MD: Zackery Mcgraw Measurements Intervals [place] Rate: 84 P: 64 MA: 180 QRS: -12 QRSD: 89 T: 59 QT: 402 QTc: 476 Interpretive Statements SINUS RHYTHM PRWP NONSPECIFIC T-WAVEABNORMALITY Electronically Signed On 01-20-2025 08:39:51 EDT by Zackery Mcgraw Results for orders placed during the hospital encounter of 01/19/25 EK EKG 12 LEAD Impression [place] [facility] [place] Test Date: 2025-01-19 Pat Name: [facility] Department: DEPID Room: [facility] 2 Gender: Female Black Mill Operator: HEIDY : 1975 Requested By: MICHAEL Juarez Order Number: [id number] Reading MD: Zackery Mcgraw Measurements Intervals [place] Rate: 84 P: 64 MA: 180 QRS: -12 QRSD: 89 T: 59 QT: 402 QTc: 476 Interpretive Statements SINUS RHYTHM PRWP NONSPECIFIC T-WAVE ABNORMALITY Electronically Signed On 01-20-2025 08:39:51 EDT by Zackery Mcgraw All Radiology/Labs/EKG's/Cardiac testing reviewed. Active Hospital Problems Diagnosis *Paroxysmal atrial fibrillation (HCC) CKD (chronic kidney disease) Status post ablation of atrial fibrillation A-fib (HCC) Depressive disorder Sleep apnea, obstructive Morbid obesity with BMI of 50.0-59.9, adult (HCC) Hyperlipidemia Diabetes mellitus (HCC) Essential hypertension Admission Assessment and Plan: Assessment & Plan Paroxysmal atrial fibrillation (HCC) Status post ablation of atrial fibrillation -s/p ablation with 3D mapping 01/19 -toproxl XL -Eliquis -Management per EP Diabetes mellitus (HCC) -Uncontrolled -A1c 8.9 -Reports regimen has recently been adjusted over past two months. Has been taking U500 140U bid forabout two months, typically runs BG 200s. Noted occasional low when bumped up to 150U bid. -Last dose of insulin/U500 was AM 01/18 -Resume U500 at slightly lower dose 120U bid. Patient is hopeful to return home this date and resume as prescribed. -Change to carb controlled diet -Close monitoring of BG and follow up with provider on discharge discussed Essential hypertension -BP stable 134/74 -Continue norvasc, HCTZX, cozaar, toprol xl Morbid obesity with BMI of 50.0-59.9, adult (HCC) -Complicates all aspects of care Sleep apnea, obstructive -Unable to tolerate mask Depressive disorder -Continue pristiq Hyperlipidemia -Statin CKD (chronic kidney disease) -Renal function overall stable -Avoid nephrotoxic agents as able Discussed in detail with patient and at bedside. Extensive discussion about BG readings at home and past and current regimens. She is hopeful to be discharged home today. Labs, imaging, chart reviewed extensively. Additional orders placed. Discussed with care team. Ordered for U500, which is a high risk medication requiring frequent monitoring. Continue BG checks achs. D/w pharmacy. Dispo: Per primary. Bg Garcia DO 01/20/2025 8:44 AM [1] Past Medical History: Diagnosis Date Cardiomegaly CHF (congestive heart failure) ([facility]) Complication of anesthesia hard to arouse x 1 or COPD (chronic obstructive pulmonary disease) (HCC) Depression Diabetes mellitus (HCC) Type II Diverticulosis DELEON (dyspnea on exertion) Heartburn Hypertension Leg swelling renate occ Neuromuscular disorder (HCC) hands and feet Syncope and collapse Unspecified sleep apnea c pap doesnt always use Urinary incontinence [2] Past Surgical History: Procedure Laterality Date APPENDECTOMY SECTION x2 CHOLECYSTECTOMY ERCP HYSTERECTOMY OVARY REMOVAL VENTRAL HERNIA REPAIR N/A 04/04/2015 [facility] ROBOTIC ASSISTED RECURRENT VENTRAL HERNIA REPAIR WITH MESH; Surgeon: Africa Gee MD; Location: [facility]; Service: General [3] Medications Prior to Admission Medication Sig amLODIPine (NORVASC) 10 mg Oral Tablet Take 10 mg by mouth daily. atorvastatin (LIPITOR) 40 mg Oral Tablet Take 40 mg by mouth nightly. at bedtime desvenlafaxine 50 mg Oral Tablet Sustained Release 24 hr Take 1 tablet every day by oral route. DEXCOM G7 SENSOR Misc Device dilTIAZem 300 mg Oral Capsule, Sust. Release 24 hr ELIQUIS 5 mg Oral Tablet Take 1 tablet twice a day by oral route. FREESTYLE LANCETS 28 gauge Misc Misc fUROsemide (LASIX) 40 mg Oral Tablet HUMULIN R U-500, CONC, KWIKPEN 500 unit/mL (3 mL) SubQ Insulin Pen hydrALAZINE (APRESOLINE) 100 mg Oral Tablet hydroCHLOROthiazide (HYDRODIURIL) 25 mg Oral Tablet Take by mouth. HYDROcodone-acetaminophen (NORCO) 5-325 mg Oral Tablet Take 1 tablet 3 times a day by oral route asneeded. hydrOXYzine (ATARAX) 25 mg Oral Tablet Take 1 tablet every 6 hours by oral route as needed. losartan (COZAAR) 100 mg Oral Tablet Take 1 tablet every day by oral route. meclizine (ANTIVERT) 25 mg Oral Tablet Take 1 tablet 3 times a day by oral route as needed. metoprolol succinate ER (TOPROL-XL) 100 mg Oral Tablet Sustained Release 24 hr multivitamin (THERAGRAN) Oral Tablet Take 1 Tab by mouth daily. potassium chloride (K-DUR) 10 mEq Oral Tablet Sustained Release Take 10 mEq by mouth daily. traZODone (DESYREL) 100 mg Oral Tablet Take 100 mg by mouth nightly. traZODone (DESYREL) 150 mg Oral Tablet albuterol (PROVENTIL) 2.5 mg /3 mL (0.083 %) Inhl Solution for Nebulization Take 2.5 mg by nebulization every 6 hours as needed for Wheezing. (Patient not taking: Reported on 01/19/2025) dilTIAZem 180 mg Oral Capsule, Sust. Release 24 hr hydrALAZINE (APRESOLINE) 50 mg Oral Tablet Take 50 mg by mouth 4 times daily. insulin aspart, niacinamide, 100 unit/mL (3 mL) SubQ Cartridge 7 units ac (Patient not taking: Reported on 01/19/2025) Insulin glargine (LANTUS) 100 unit/mL (3 mL) SubQ Insulin Pen Subcutaneous (Inject under the skin) 100 Units every evening. (Patient not taking: Reported on 01/19/2025) insulin lispro (HUMALOG KWIKPEN INSULIN) 100 unit/mL SubQ Insulin Pen Subcutaneous (Inject under the skin) 0-12 Units 3 times daily (with meals). (Patient not taking: Reported on 01/19/2025) lisinopril (PRINIVIL;ZESTRIL) 40 mg tablet Take 40 mg by mouth 2 times daily. (Patient not taking: Reported on 12/31/2024) oxyCODONE (ROXICODONE) 5 mg Oral Tablet (Patient not taking: Reported on 01/19/2025) [4] No Known Allergies [5] Social History Socioeconomic History Marital status: Spouse name: None Number of children: None Years of education: None Highest education level: None Tobacco Use Smoking status: Former Current packs/day: 0.00 Average packs/day: 0.3 packs/day for 23.1 years (5.8 ttl pk-yrs) Types: Cigarettes Start date: 07/05/1994 Quit date: 08/23/2017 Years since quittin.4 Smokeless tobacco: Never Substance and Sexual Activity Alcohol use: Yes Comment: occ Drug use: No Social Drivers of Health Transportation Needs: High Risk (09/26/2021) Received from [employer] PRAPARE Survey 1.0 Has lack of transportation kept you from medical appointments, meetings, work, or from getting things needed for daily living? Check all that apply.: Yes, it has kept me from medical appointments or from getting my medications Housing Stability: Low Risk (09/26/2021) Received from [employer] PRAPARE Survey 1.0 What is your housing situation today?: I have housing [6] Family History Problem Relation Age of Onset High Blood Pressure Mother High Cholesterol Mother Diabetes Mother High Blood Pressure Father High Cholesterol Father Heart Disease Father Anesth Problems Neg Hx documented in this encounter Miscellaneous Notes * Utilization Review Notes - Luisa Caballero RN - 01/20/2025 10:04 AM EDT Images from the original note were not included. ADMITTED OBS ON 01/19 OBSERVATION ORDER ON CHART, CONTINUES STAY ON TELEMETRY FLOOR FOR Paroxysmal atrial fibrillation (HCC) Status post ablation of atrial fibrillation -s/p ablation with 3D mapping 01/19 -toproxl XL -Eliquis -Management per EP Diabetes mellitus (HCC) -Uncontrolled -A1c 8.9 -Reports regimen has recently been adjusted over past two months. Has been taking U500 140U bid forabout two months, typically runs BG 200s. Noted occasional low when bumped up to 150U bid. -Last dose of insulin/U500 was AM 01/18 -Resume U500 at slightly lower dose 120U bid. Patient is hopeful to return home this date and resume as prescribed. -Change to carb controlled diet -Close monitoring of BG and follow up with provider on discharge discussed CC FOLLOWING FOR DISCHARGE NEEDS * Utilization Review Notes - Luisa Caballero RN - 01/19/2025 4:17 PM EDT OBSERVATION ORDER ON CHART, ADMITTED TO TELEMETRY FLOOR FROM REGISTERED NURSE [employer]PLANT FOR PROCEDURE(S): Procedure(s): PAROXYSMAL ATRIAL FIBRILLATION ABLATION WITH 3D MAPPING FINDINGS: Successful PVI for PAF Successful CTI line for typical atrial flutter with TCL 250 msec Right jae line DISPOSITION/POST PROC COURSE: Routine post-op Figure 8 stitch right groin. 01/19/25 1601 97.7 ??F (36.5 ??C) -- 86 14 150/77 97 Semi Fowlers -- -- 95 % -- -- Room Air CC FOLLOWS FOR DISCHARGE NEEDS * Plan of Care - Alexi Chacon RN - 01/19/2025 3:26 PM EDT Problem: Thermoregulation Goal: Patient's temperature will be greater than 96.8F at discharge. Outcome: Progressing Problem: Safety: Fall Risk Goal: Patient will be free from falls. Outcome: Progressing Problem: Potential for post-op nausea/vomiting Description: Related to procedure Goal: Patient will be free of post-op nausea/vomiting or nausea/vomiting will be controlled. Outcome: Progressing Problem: Bleeding Description: Related to: Procedure Goal: Post-op dressing will remain clean and dry. Outcome: Progressing Goal: Patient will have no signs/symptoms of post-procedure bleeding. Outcome: Progressing Goal: Access site will be free of hematoma/bleeding. Outcome: Progressing Problem: Potential for altered respiratory status. Description: Related to: Sedation/Anesthesia Goal: Patient will remain free of respiratory complications. Outcome: Progressing Problem: Pain Management Description: Related to: Procedure Goal: The patient's stated pain goal will be reached and maintained. Outcome: Progressing * Plan of Care - Doug Cuadra RN - 01/19/2025 12:24 PM EDT Plan of care updated * H&P Update - Michael Hilliard MD - 01/19/2025 9:25 AM EDT H&P Update I have reviewed the history and physical and examined the patient and find no relevant changes. I have reviewed with the patient and/or family the risks, benefits, and alternatives to the procedure. Pre-sedation Assessment Patient: Eliz Daniels : 1975 Intended Procedure: EP procedure Witness: Nurses notes reviewed and agreed. Medications reviewed Allergies: Allergies[1] Pre-Procedure Assessment/Plan: ASA 3 - Patient with moderate systemic disease with functional limitations Mallampati Score: II (soft palate, uvula, fauces visible) Level of Sedation Plan: general Post Procedure plan: Return to same level of care [1] No Known Allergies documented in this encounter Plan of Treatment Upcoming Encounters Date Type Department Care Team (Late st Contact Info) Description 03/08/2025 2:00 PM EST Office Visit [facility] [address] [place] [address] Michelle Bull, [place] [address] [place] [address] documented as of this encounter Procedures Procedure Name Priority Date/Time Associated Diagnosis Comments GLUCOSE METER POC Routine 01/20/2025 10:20 AM EDT ECG AND WAVEFORMS - TELEMETRY Routine 01/20/2025 7:26 AM EDT CBC WITH DIFF Routine 01/20/2025 7:02 AM EDT HEMOGLOBIN A1C Routine 01/20/2025 7:02 AM EDT BASIC METABOLIC PANEL Routine 01/20/2025 7:02 AM EDT GLUCOSE METER POC Routine 01/20/2025 4:30 AM EDT GLUCOSE METER POC Routine 01/20/2025 3:05 AM EDT GLUCOSE METER POC Routine 01/20/2025 12:56 AM EDT GLUCOSE METER POC Routine 01/19/2025 11:36 PM EDT IP CONSULT TO HOSPITALIST Routine 01/19/2025 11:20 PM EDT Procedure Note - Bg Garcia DO - 01/20/2025 8:37 AM EDTThis note is in progress. [facility] Consult Note Name: Eliz Daniels DOB: 1975 AGE: 49 y.o. PCP: Carlos Dean MD Admitting Physician: Bg Garcia DO Date of Admit: 01/19/2025 Chief Complaint: Uncontrolled BG History of Present Illness: Ms. Daniels is a 49yo female with PMHx of DM type II, VENTURA (untreated) andafib who was admitted 01/19 after elective ablation with EP. She reportsthat prior to admission, she had been feeling well. No recent fevers,chills. We are consulted for hyperglycemia. She reports that she [id number] 140U bid with BG that typically run in 200s. Does not administer anyshort acting insulin throughout the day. Last dose of insulin was AM10/27. After intervention yesterday, did not watch what she eats. Does nottypically count carbs but tries to follow diabetic diet as best she can athome. Past Medical History[1] Surgical History[2] Prescriptions Prior to Admission[3] Allergies[4] Social History[5] Family History[6] Review of Systems: The listed systems were reviewed and reveal thefollowing in addition to any already discussed in the HPI: Constitutional: No fever, chills, or weight loss Eyes: No visual disturbance HEENT: No headache, hearing loss, epistaxis, sore throat, or hoarseness Lungs: No SOB, cough, hemoptysis, or pleuritic chest pain Cardiovascular: No chest pain, PND, orthopnea, DELEON Endocrine: No polyuria, polydypsia, or polyphagia GI: No abdominal pain, nausea, vomiting, hematemesis, diarrhea,constipation, melena, hematochezia, or bright red blood per rectum : No dysuria, frequency, hesitancy, or hematuria Musculoskeletal: No myalgias or muscle weakness Neurologic: No focal numbness or weakness Skin: No edema, jaundice, or skin discoloration Psychiatric: + depression, anxiety Hematologic/Allergic: No history of bleeding or easy bruising, no clots OBJECTIVE: Physical Exam: Vitals: 01/20/25 0427 BP: 134/74 Pulse: 73 Resp: 18 Temp: 98.3 F (36.8 C) SpO2: 96% Weight: (!) 363 lb (164.7 kg) Constitutional: Well developed, adequently nourished, no acute distress,non-toxic appearance; obese Eyes: PERRL, conjunctiva normal, sclera clear HEENT: Atraumatic,mouth moist, no thrush Neck- normal range of motion, no tenderness, supple no LA TM JVD Respiratory: No respiratory distress, normal breath sounds, no rales, nowheezing Cardiovascular: Normal rate, normal rhythm, no murmurs, no gallops, norubs GI: Soft, nondistended, + bowel sounds, nontender no mass, no rebound, noguarding :not examined Musculoskeletal: No edema, no tenderness, no deformities. Integument: Adequatly hydrated, no rash Lymphatic: No lymphadenopathy noted Neurologic: Alert & oriented x 3, moving all 4 limbs equally no grossfocal deficits noted Psychiatric: Speech and behavior appropriate Labs: CBC: Lab Results Component Value Date WBC 13.9 (H) 01/20/2025 RBC 4.09 01/20/2025 HGB 11.5 01/20/2025 HCT 35.5 01/20/2025 MCV 86.8 01/20/2025 MCHC 32.4 01/20/2025 RDW 15.2 (H) 01/20/2025 MPV 9.5 01/20/2025 BMP: Lab Results Component Value Date NA 134 (L) 01/20/2025 K 4.5 01/20/2025 CL 97 (L) 01/20/2025 CO2 22 01/20/2025 BUN 23 (H) 01/20/2025 CREATININE 1.17 01/20/2025 CALCIUM 9.1 01/20/2025 GLU 337 (H) 01/20/2025 Hepatic: No results found for: ALKPHOS , ALT , AST , PROT , LABBILI , BILIDIR , IBILI , LABALBU No results found for: AMYLASE , LIPASE U/A:No results found for: SPECGRAV , UAPROTEIN , BLOODU , NITRITE , LEUKOCYTESUR , WBCUA , RBCUA Coagulation: No results found for: PT , INR , APTT Cardiac markers: No results found for: CKMB , MYOGLOBIN ABGs:No results found for: PH , PCO2 , PO2 , HCO3 , TCO2 , BASEEXCESS , O2SAT , INSPIREDO2 , SPECIMENTYPE Radiology: EK EKG 12 LEAD Result Date: 01/20/[facility]25 [facility] Date:2025-01-19 Pat Name: ELIZ DANIELS Department: DEPIDPatient ID: [id number] Room: [facility] Gender:Female Black Mill Operator: HEIDY : [id number] By: MICHAEL Juarez Order Number: [id number] MD: Zackery Mcgraw MeasurementsIntervals [place] Rate: 84P: 64 MA: 180QRS: -12 QRSD: 89 T: 59QT: 402 QTc: 476InterpretiveStatements SINUS RHYTHM PRWP NONSPECIFIC T-WAVE ABNORMALITY ElectronicallySigned On 01-20-2025 08:39:51 EDT by Zackery Mcgraw Results for orders placed during the hospital encounter of 01/19/25 EK EKG [address] [facility] Test Date: 2025-01-19 Pat Name: [facility] Department: DEPID Room: [facility] Gender: Female Black Mill Operator: HEIDY : 1975 Requested By: MICHAEL Juarez Order Number: [id number] Reading MD: Zackery Mcgraw Measurements Intervals [place] Rate: 84 P: 64 MA: 180 QRS: -12 QRSD: 89 T: 59 QT: 402 QTc: 476 Interpretive Statements SINUS RHYTHM PRWP NONSPECIFIC T-WAVE ABNORMALITY Electronically Signed On 01-20-2025 08:39:51 EDT by Zackery Mcgraw All Radiology/Labs/EKG's/Cardiac testing reviewed. Active Hospital Problems Diagnosis *Paroxysmal atrial fibrillation (HCC) CKD (chronic kidney disease) Status post ablation of atrial fibrillation A-fib (HCC) Depressive disorder Sleep apnea, obstructive Morbid obesity with BMI of 50.0-59.9, adult (HCC) Hyperlipidemia Diabetes mellitus (HCC) Essential hypertension Admission Assessment and Plan: Assessment & Plan Paroxysmal atrial fibrillation (HCC) Status post ablation of atrial fibrillation -s/p ablation with 3D mapping 01/19 -toproxl XL -Eliquis -Management per EP Diabetes mellitus (HCC) -Uncontrolled -A1c 8.9 -Reports regimen has recently been adjusted over past two months. Has beentaking U500 140U bid for about two months, typically runs BG 200s. Notedoccasional low when bumped up to 150U bid. -Last dose of insulin/U500 was AM 01/18 -Resume U500 at slightly lower dose 120U bid. Patient is hopeful to returnhome this date and resume as prescribed. -Change to carb controlled diet -Close monitoring of BG and follow up with provider on dischargediscussed Essential hypertension -BP stable 134/74 -Continue norvasc, HCTZX, cozaar, toprol xl Morbid obesity with BMI of 50.0-59.9, adult (HCC) -Complicates all aspects of care Sleep apnea, obstructive -Unable to tolerate mask Depressive disorder -Continue pristiq Hyperlipidemia -Statin CKD (chronic kidney disease) -Renal function overall stable -Avoid nephrotoxic agents as able Discussed in detail with patient and at bedside. Extensivediscussion about BG readings at home and past and current regimens. She ishopeful to be discharged home today. Labs, imaging, chart reviewed extensively. Additional orders placed.Discussed with care team. Ordered for U500, which is a high riskmedication requiring frequent monitoring. Continue BG checks achs. D/w pharmacy. Dispo: Per primary. Bg Garcia DO 01/20/2025 8:44 AM [1] Past Medical History: Diagnosis Date Cardiomegaly CHF (congestive heart failure) ([facility]) Complication of anesthesia hard to arouse x 1 or COPD (chronic obstructive pulmonary disease) ([facility]) Depression Diabetes mellitus (HCC) Type II Diverticulosis DELEON (dyspnea on exertion) Heartburn Hypertension Leg swelling renate occ Neuromuscular disorder (HCC) hands and feet Syncope and collapse Unspecified sleep apnea c pap doesnt always use Urinary incontinence [2] Past Surgical History: Procedure Laterality Date APPENDECTOMY SECTION x2 CHOLECYSTECTOMY ERCP HYSTERECTOMY OVARY REMOVAL VENTRAL HERNIA REPAIR N/A 04/04/2015 [facility] ROBOTIC ASSISTED RECURRENT VENTRAL HERNIA REPAIR WITH MESH;Surgeon: Africa Gee MD; Location: [facility]; Service: General [3] Medications Prior to Admission Medication Sig amLODIPine (NORVASC) 10 mg Oral Tablet Take 10 mg by mouth daily. atorvastatin (LIPITOR) 40 mg Oral Tablet Take 40 mg by mouth nightly. atbedtime desvenlafaxine 50 mg Oral Tablet Sustained Release 24 hr Take 1 tabletevery day by oral route. DEXCOM G7 SENSOR Misc Device dilTIAZem 300 mg Oral Capsule, Sust. Release 24 hr ELIQUIS 5 mg Oral Tablet Take 1 tablet twice a day by oral route. FREESTYLE LANCETS 28 gauge Misc Misc fUROsemide (LASIX) 40 mg Oral Tablet HUMULIN R U-500, CONC, KWIKPEN 500 unit/mL (3 mL) SubQ Insulin Pen hydrALAZINE (APRESOLINE) 100 mg Oral Tablet hydroCHLOROthiazide (HYDRODIURIL) 25 mg Oral Tablet Take by mouth. HYDROcodone-acetaminophen (NORCO) 5-325 mg Oral Tablet Take 1 tablet 3times a day by oral route as needed. hydrOXYzine (ATARAX) 25 mg Oral Tablet Take 1 tablet every 6 hours byoral route as needed. losartan (COZAAR) 100 mg Oral Tablet Take 1 tablet every day by oralroute. meclizine (ANTIVERT) 25 mg Oral Tablet Take 1 tablet 3 times a day byoral route as needed. metoprolol succinate ER (TOPROL-XL) 100 mg Oral Tablet Sustained Nttbkge22 hr multivitamin (THERAGRAN) Oral Tablet Take 1 Tab by mouth daily. potassium chloride (K-DUR) 10 mEq Oral Tablet Sustained Release Take 10mEq by mouth daily. traZODone (DESYREL) 100 mg Oral Tablet Take 100 mg by mouth nightly. traZODone (DESYREL) 150 mg Oral Tablet albuterol (PROVENTIL) 2.5 mg /3 mL (0.083 %) Inhl Solution forNebulization Take 2.5 mg by nebulization every 6 hours as needed forWheezing. (Patient not taking: Reported on 01/19/2025) dilTIAZem 180 mg Oral Capsule, Sust. Release 24 hr hydrALAZINE (APRESOLINE) 50 mg Oral Tablet Take 50 mg by mouth 4 timesdaily. insulin aspart, niacinamide, 100 unit/mL (3 mL) SubQ Cartridge 7 units ac(Patient not taking: Reported on 01/19/2025) Insulin glargine (LANTUS) 100 unit/mL (3 mL) SubQ Insulin PenSubcutaneous (Inject under the skin) 100 Units every evening. (Patient nottaking: Reported on 01/19/2025) insulin lispro (HUMALOG KWIKPEN INSULIN) 100 unit/mL SubQ Insulin PenSubcutaneous (Inject under the skin) 0-12 Units 3 times daily (withmeals). (Patient not taking: Reported on 01/19/2025) lisinopril (PRINIVIL;ZESTRIL) 40 mg tablet Take 40 mg by mouth 2 timesdaily. (Patient not taking: Reported on 12/31/2024) oxyCODONE (ROXICODONE) 5 mg Oral Tablet (Patient not taking: Reported on01/19/2025) [4] No Known Allergies [5] Social History Socioeconomic History Marital status: Spouse name: None Number of children: None Years of education: None Highest education level: None Tobacco Use Smoking status: Former Current packs/day: 0.00 Average packs/day: 0.3 packs/day for 23.1 years (5.8 ttl pk-yrs) Types: Cigarettes Start date: 07/05/1994 Quit date: 08/23/2017 Years since quittin.4 Smokeless tobacco: Never Substance and Sexual Activity Alcohol use: Yes Comment: occ Drug use: No Social Drivers of Health Transportation Needs: High Risk (09/26/2021) Received from [facility] Medicaid PRAPARE Survey 1.0 Has lack of transportation kept you from medical appointments, meetings,work, or from getting things needed for daily living? Check all thatapply.: Yes, it has kept me from medical appointments or from getting mymedications Housing Stability: Low Risk (09/26/2021) Received from [facility] Medicaid PRAPARE Survey 1.0 What is your housing situation today?: I have housing [6] Family History Problem Relation Age of Onset High Blood Pressure Mother High Cholesterol Mother Diabetes Mother High Blood Pressure Father High Cholesterol Father Heart Disease Father Anesth Problems Neg Hx GLUCOSE METER POC Routine 01/19/2025 11:13 PM EDT ECG AND WAVEFORMS - TELEMETRY Routine 01/19/2025 7:00 PM EDT ECG AND WAVEFORMS - TELEMETRY Routine 01/19/2025 4:06 PM EDT EK EKG 12 LEAD Routine 01/19/2025 3:32 PM EDT ADMIT Routine 01/19/2025 3:32 PM EDT GLUCOSE METER POC Routine 01/19/2025 2:39 PM EDT ELECTROPHYSIOLOGY PROCEDURE Routine 01/19/2025 2:30 PM EDT Paroxysmal atrial fibrillation (HCC) ACTIVATED CLOTTING TIME LR POC Routine 01/19/2025 2:01 PM EDT ACTIVATED CLOTTING TIME LR POC Routine 01/19/2025 1:43 PM EDT ACTIVATED CLOTTING TIME LR POC Routine 01/19/2025 1:24 PM EDT ADMIT Routine 01/19/2025 12:45 PM EDT CBC WITH DIFF Routine 01/19/2025 10:48 AM EDT Paroxysmal atrial fibrillation (HCC) BASIC METABOLIC PANEL Routine 01/19/2025 10:48 AM EDT Paroxysmal atrial fibrillation (HCC) documented in this encounter Results * (ABNORMAL) GLUCOSE METER POC (01/20/2025 10:20 AM EDT) Glucose Meter POC 315(H) 70 - 100 mg/dL 01/20/2025 10:22 AM EDT [facility] Sample Type Capillary 01/20/2025 10:22 AM EDT [facility] Patient Status Non-Critical Patient 01/20/2025 10:22 AM EDT [facility] Blood BLOOD SPECIMEN / Unknown 01/20/2025 10:20 AM EDT 01/20/2025 10:22 AM EDT us Michael Hilliard MD POINT OF CARE TEST ORDERABLES Fi nal Result [facility] [address] [place] [address] * ECG AND WAVEFORMS - TELEMETRY (01/20/2025 7:26 AM EDT) ECG INTERPRET NSR [facility] 01/20/2025 7:26 AM EDT Narrative [facility] - 01/20/2025 7:31 AM EDT ROUTINE (BS) MA 0.19 QRS 0.08 RR 0.82 QT 0.44 QTc 0.49 See Clinical Report link for waveform capture us Unknown Provider POINT OF CARE CARDIOLOGY Final Result [facility] [address] [place] [phone] * (ABNORMAL) CBC WITH DIFF (01/20/2025 7:02 AM EDT) WBC 13.9(H) 3.7 - 10.3 x10(3)/mcL 01/20/2025 7:29 AM EDT [facility] RBC 4.09 3.90 - 5.20 x10(6)/mcL 01/20/2025 7:29 AM EDT [facility] Hgb 11.5 11.2 - 15.7 g/dL 01/20/2025 7:29 AM EDT [facility] Hct 35.5 34.0 - 45.0 % 01/20/2025 7:29 AM EDT [facility] MCV 86.8 80.0 - 100.0 fL 01/20/2025 7:29 AM EDT [facility] MCH 28.1 26.0 - 34.0 pg 01/20/2025 7:29 AM EDT [facility] MCHC 32.4 30.7 - 35.5 g/dL 01/20/2025 7:29 AM EDT [facility] RDW 15.2(H) <=14.9 % 01/20/2025 7:29 AM EDT [facility] Platelet 273 155 - 369 x10(3)/mcL 01/20/2025 7:29 AM EDT [facility] MPV 9.5 8.8 - 12.5 fL 01/20/2025 7:29 AM EDT [facility] Neut Percent 83.6 % 01/20/2025 7:29 AM EDT [facility] Comment:Neutrophils equals s egs plus bands Imm Gran% 0.9 % 01/20/2025 7:29 AM EDT [facility] Comment:Automated count of m etamyelocytes, myelocytes and promyelocytes. Lymph Percent 7.9 % 01/20/2025 7:29 AM EDT [facility] [place] Percent 7.1 % 01/20/2025 7:29 AM EDT [facility] Eos Percent 0.1 % 01/20/2025 7:29 AM EDT [facility] Baso Percent 0.4 % 01/20/2025 7:29 AM EDT [facility] Neut # 11.6(H) 1.6 - 6.1 x10(3)/mcL 01/20/2025 7:29 AM EDT [facility] Comment:Neutrophils equals s egs plus bands IMMGRAN# 0.1 0.0 - 0.1 x10(3)/mcL 01/20/2025 7:29 AM EDT [facility] Comment:Automated count of m etamyelocytes, myelocytes and promyelocytes. An absolute IG <0.1 is reported as 0.0. Lymph # 1.1(L) 1.2 - 3.9 x10(3)/mcL 01/20/2025 7:29 AM EDT [facility] [place] # 1.0(H) 0.3 - 0.9 x10(3)/mcL 01/20/2025 7:29 AM EDT [facility] Eos# 0.0 0.0 - 0.5 x10(3)/mcL 01/20/2025 7:29 AM EDT [facility] Baso # 0.1 0.0 - 0.1 x10(3)/mcL 01/20/2025 7:29 AM EDT [facility] [employer], [facility] Blood VENOUS BLOOD / Unknown Venipuncture / Unknown 01/20/2025 7:02 AM EDT 01/20/2025 7:14 AM EDT us Bg Garcia DO HEMATOLOGY ORDERABLES Final Result [facility] [address] [facility] , [place] [address] * (ABNORMAL) BASIC METABOLIC PANEL (01/20/2025 7:02 AM EDT) Sodium 134(L) 136 - 145 mmol/L 01/20/2025 8:02 AM EDT [facility] Potassium 4.5 3.5 - 5.0 mmol/L 01/20/2025 8:02 AM EDT [facility] Chloride 97(L) 98 - 107 mmol/L 01/20/2025 8:02 AM EDT [facility] Total CO2 22 22 - 29 mmol/L 01/20/2025 8:02 AM EDT [facility] Anion Gap 15 7 - 16 mmol/L 01/20/2025 8:02 AM EDT [facility] Calcium 9.1 8.6 - 10.4 mg/dL 01/20/2025 8:02 AM EDT [facility] Glucose Lvl 337(H) 70 - 99 mg/dL 01/20/2025 8:02 AM EDT [facility] BUN 23(H) 6 - 20 mg/dL 01/20/2025 8:02 AM EDT [facility] Creatinine 1.17 0.51 - 1.30 mg/dL 01/20/2025 8:02 AM EDT [facility] eGFR (CKD-EPIcr 2020) 56(L) >=60 mL/min/1.7 3 m2 01/20/2025 8:02 AM EDT [facility] Comment:Estimated GFR was ca lculated using the CKD-EPIcr (2020) equation refit without race. The equation is recommended by the National Kidney Foundation - [place] [employer] of Nephrology Task Force. Blood VENOUS BLOOD / Unknown Venipuncture / Unknown 01/20/2025 7:02 AM EDT 01/20/2025 7:14 AM EDT us Bg Garcai DO CHEMISTRY ORDERABLES Final R esult [facility] [address] [facility] , [address] [place] [phone] * (ABNORMAL) HEMOGLOBIN A1C (01/20/2025 7:02 AM EDT) Pathologist [facility] Hgb A1C 8.9(H) 4.2 - 5.6 % 01/20/2025 7:52 AM EDT [facility] Est. Avg Glucose 209 mg/dL 01/20/2025 7:52 AM EDT [facility] [employer] Blood VENOUS BLOOD / Unknown Venipuncture / Unknown 01/20/2025 7:02 AM EDT 01/20/2025 7:14 AM EDT Narrative [facility] - 01/20/2025 7:52 AM EDT REFERENCE RANGE: Normal: 4.0-5.6% Pre-diabetes: 5.7-6.4% Provisional diagnosis of diabetes: >6.4% Hgb F>10% and anything which shortens red cell survival, such as hemolytic anemia, or unstable hemoglobin variants such as HbSS, HbSC, or HbCC, will lower the HbA1c value associated with a given level of glycemic control. Bg Garcia DO CHEMISTRY ORDERABLES Final R esult Performing Organization Address City/[facility]/ZIP Co de Phone Number [facility] [address] [facility], [place] [address] * (ABNORMAL) GLUCOSE METER POC (01/20/2025 4:30 AM EDT) [facility] Glucose Meter POC 359(H) 70 - 100 mg/dL 01/20/2025 4:31 AM EDT [facility] Sample Type Capillary 01/20/2025 4:31 AM EDT [facility] Patient Status Non-Critical Patient 01/20/2025 4:31 AM EDT [facility] Blood BLOOD SPECIMEN / Unknown 01/20/2025 4:30 AM EDT 01/20/2025 4:31 AM EDT Michael Hilliard MD POINT OF CARE TEST ORDERABLES Fi nal Result Performing Organization Address City/[facility]/ZIP Co de Phone Number [facility] [address] [place] [phone] * (ABNORMAL) GLUCOSE METER POC (01/20/2025 3:05 AM EDT) Glucose Meter POC 422(H) 70 - 100 mg/dL 01/20/2025 3:06 AM EDT [facility] Sample Type Capillary 01/20/2025 3:06 AM EDT [facility] Patient Status Non-Critical Patient 01/20/2025 3:06 AM EDT [facility] Blood BLOOD SPECIMEN / Unknown 01/20/2025 3:05 AM EDT 01/20/2025 3:06 AM EDT Michael Hilliard MD POINT OF CARE TEST ORDERABLES Fi nal Result Performing Organization Address [facility] Co de Phone Number [address] [address] * (ABNORMAL) GLUCOSE METER POC (01/20/2025 12:56 AM EDT) Glucose Meter POC 489(HH) 70 - 100 mg/dL 01/20/2025 12:58 AM EDT [facility] Sample Type Capillary 01/20/2025 12:58 AM EDT [facility] Patient Status Non-Critical Patient 01/20/2025 12:58 AM EDT [facility] Blood BLOOD SPECIMEN / Unknown 01/20/2025 12:56 AM EDT 01/20/2025 12:58 AM EDT Narrative [facility] - 01/20/2025 12:58 AM EDT Critical results for Point of Care instruments are made directly available to testing personnel and should be communicated to the healthcare provider. Michael Hilliard MD POINT OF CARE TEST ORDERABLES Fi nal Result Performing Organization Address [facility] Co de Phone Number [address] [address] * (ABNORMAL) GLUCOSE METER POC (01/19/2025 11:36 PM EDT) Glucose Meter POC 521(HH) 70 - 100 mg/dL 01/19/2025 11:38 PM EDT [facility] Sample Type Capillary 01/19/2025 11:38 PM EDT [facility] Patient Status Non-Critical Patient 01/19/2025 11:38 PM EDT [facility] Blood BLOOD SPECIMEN / Unknown 01/19/2025 11:36 PM EDT 01/19/2025 11:38 PM EDT Narrative [facility] - 01/19/2025 11:38 PM EDT Critical results for Point of Care instruments are made directly available to testing personnel and should be communicated to the healthcare provider. Michael Hilliard MD POINT OF CARE TEST ORDERABLES Fi nal Result Performing Organization Address [facility] Co de Phone Number [address] [phone] * (ABNORMAL) GLUCOSE METER POC (01/19/2025 11:13 PM EDT) Glucose Meter POC 548(HH) 70 - 100 mg/dL 01/19/2025 11:15 PM EDT [facility] Sample Type Capillary 01/19/2025 11:15 PM EDT [facility] Patient Status Non-Critical Patient 01/19/2025 11:15 PM EDT [facility] Blood BLOOD SPECIMEN / Unknown 01/19/2025 11:13 PM EDT 01/19/2025 11:15 PM EDT Narrative [facility] - 01/19/2025 11:15 PM EDT Critical results for Point of Care instruments are made directly available to testing personnel and should be communicated to the healthcare provider. Michael Hilliard MD POINT OF CARE TEST ORDERABLES Fi nal Result Performing Organization Address City/[facility] Co de Phone Number [address] [address] * ECG AND WAVEFORMS - TELEMETRY (01/19/2025 7:00 PM EDT) ECG INTERPRET First Degree Sinus Rhythm [facility] 01/19/2025 7:00 PM EDT Narrative [facility] - 01/19/2025 7:09 PM EDT 1ST DEGREE AVB - ROUTINE/EW MA 0.22 QRS 0.08 RR 0.73 QT 0.41 QTc 0.48 See Clinical Report link for waveform capture us Unknown Provider POINT OF CARE CARDIOLOGY Final Result Performing Organization Address [facility] Co de Phone Number [facility] [address] [place] [address] * ECG AND WAVEFORMS - TELEMETRY (01/19/2025 4:06 PM EDT) ECG INTERPRET NSR [facility] 01/19/2025 4:06 PM EDT Narrative [facility] - 01/19/2025 4:45 PM EDT MG/ADMIT MA 0.19 QRS 0.07 RR 0.70 QT 0.38 QTc 0.45 See Clinical Report link for waveform capture us Unknown Provider POINT OF CARE CARDIOLOGY Final Result Performing Organization Address [facility] Co de Phone Number [facility] [address] [place] [address] * EK EKG 12 LEAD (01/19/2025 3:32 PM EDT) Anatomical Region Laterality Modality Electrocardiogra phy 01/19/2025 3:39 PM EDT Impressions 01/20/2025 8:40 AM EDT [facility] Test Date: 2025-01-19 Pat Name: ELIZ DANIELS Department: DEPID Room: [facility] Gender: Female [employer] Operator: HEIDY : 1975 Requested By: MICHAEL Juarez Order Number: [id number] Gladys MD: Zackery Mcgraw Measurements Intervals [place] Rate: 84 P: 64 MA: 180 QRS: -12 QRSD: 89 T: 59 QT: 402 QTc: 476 Interpretive Statements SINUS RHYTHM PRWP NONSPECIFIC T-WAVE ABNORMALITY Electronically Signed On 01-20-2025 08:39:51 EDT by Zackery Mcgraw Narrative Procedure Note Zackery Mcgraw MD - 01/20/[address] [facility] Test Date: 2025-01-19 Pat Name: ELIZ DANIELS Department: DEPID Room: [facility] Gender: Female [employer] Operator: HEIDY : 1975 Requested By: MICHAEL Juarez Order Number: [id number] Reading MD: Zackery Mcgraw Measurements Intervals [place] Rate: 84 P: 64 MA: 180 QRS: -12 QRSD: 89 T: 59 QT: 402 QTc: 476 Interpretive Statements SINUS RHYTHM PRWP NONSPECIFIC T-WAVE ABNORMALITY Electronically Signed On 01-20-2025 08:39:51 EDT by Zackery Mcgraw us Michael Hilliard MD IMG ECG ORDERABLES Final Result * (ABNORMAL) GLUCOSE METER POC (01/19/2025 2:39 PM EDT) [facility] Glucose Meter POC 247(H) 70 - 100 mg/dL 01/19/2025 2:40 PM EDT [facility] Sample Type Capillary 01/19/2025 2:40 PM EDT [facility] Patient Status Non-Critical Patient 01/19/2025 2:40 PM EDT [facility] Blood BLOOD SPECIMEN / Unknown 01/19/2025 2:39 PM EDT 01/19/2025 2:40 PM EDT us Michael Hilliard MD POINT OF CARE TEST ORDERABLES Fi nal Result [facility] [address] [place] [address] * PAROXYSMAL ATRIAL FIBRILLATION ABLATION WITH 3D MAPPING (01/19/2025 2:30 PM EDT) Narrative [facility] - 01/22/2025 10:21 AM EDT Successful PVI for PAF Successful CTI line for typical atrial flutter Procedure Details [facility] Electrophysiology Procedure Note Date of Procedure: 01/22/2025 Patient's Name: Eliz Daniels Date of : 1975 Procedure Performed by: Michael Hilliard MD Procedure performed: Comprehensive electrophysiology study witht attempted induction of an arrhythmia 3-D electroanatomical mapping of the left atrium and right atium. Transseptal puncture through an intact septum. Intracardiac echocardiography. Ablation of SVT, Atrial fibrillation Ablation of SVT, typical atrial flutter Indications for procedure: Atrial fibrillation Eliz Daniels is a 49 y.o. female recurrent Afib despite meds. Details of Procedure: The risks, benefits and alternatives of the ablation procedure were discussed with the patient. The risks including, but not limited to, the risks of bleeding, infection, radiation exposure, injury to vascular, cardiac and surrounding structures (including pneumothorax), stroke, cardiac perforation, tamponade, need for emergent open heart surgery, need for pacemaker implantation, esophageal injury and fistula, myocardial infarction and were discussed in detail. The patient opted to proceed with the ablation. Written informed consent was signed and placed in the chart. Patient was brought to the EP lab in a fasting non-sedate state. Patient underwent general anesthesia by anesthesia team. Both groins were prepped in a sterile fashion. We gained access in right femoral vein. A 9-Wolof sheath for ICE, 8F sheath for CS catheter and an 8F SL-1 long sheath was placed in the right femoral vein using modified seldinger technique. Then a CS cathter was placed inside the coronary sinus under fluoroscopy for recording and mapping of the left atrium. Using ICE we delineated the left pulmonary vein, left atrial appendage, mitral valve, and right superior and right inferior pulmonary veins. Patient received a bolus of heparin prior transseptal puncture followed by continuous monitoring of the ACT and boluses of heparin during the procedure to keep the ACT more than 350. One transseptal punctures through intact septum were done using ICE as well as contrast injection, pressure monitoring , and fluoroscopy in DUTCH and ROSA projections. We placed the SL-1 Sheaths inside the left atrium. Then a [place]- array catheter with deflectable curve was advanced into the sheath which was later exchanged to an irrigated ablation catheter. Using [place]- Array catheter and Carto navigation system a three dimensional electro anatomical mapping of the left atrium, in addition to right and left sided pulmonary vein was created. Then using an irrigated tip ablation catheter wide area circumferential ablation for right and left sided pulmonary veins were performed. She presented in Afib. During ablation she converted to typical atrial flutter with a TCL 250 msec. The ablation catheter was placed in the RA. Ablation of the CTI resulted in NSR. Bidirectional block was confirmed. Following ablation we confirmed complete isolation of all four pulmonary veins using circular catheter. Both entrance and exit block was confirmed. For left sided pulmonary vein we used pacing from distal CS catheter to check isolation of the vein and entrance block. Then we paced through the circular catheter poles inside the vein using high current, which failed to conduct to the atrium confirming exit block on all four pulmonary veins. After ablation we removed the catheters and sheaths from left atrium and performed EP study and programmed stimulation using our CS catheter to assess for other arrhythmias. The deca polar catheter was moved from CS to right atrium, RV apex, and His bundle position. His bundle potentials was recorded and pacing was performed from right atrium, coronary sinus and RV apex. At the end of the procedure, using ICE we confirmed the lack of any pericardial effusion. Since patient was on anticoagulation with heparin with high ACT, we used protamine Hemostasis achieved with figure of 8 and manual compression. The patient tolerated the procedure well and there were no complications. Patient was extubated and transferred to the floor in stable condition. Michael Hilliard MD ELECTROPHYSIOLOGY ORDERABLES Fin al Result Performing Organization Address City/[facility]/ZIP Co de Phone Number [employer] [facility] * (ABNORMAL) ACTIVATED CLOTTING TIME LR POC (01/19/2025 2:01 PM EDT) ACT-LR 326(H) 89 - 169 second(s) 01/19/2025 3:32 PM EDT [facility] Blood BLOOD SPECIMEN / Unknown 01/19/2025 2:01 PM EDT 01/19/2025 3:32 PM EDT Michael Hilliard MD POINT OF CARE TEST ORDERABLES Fi nal Result Performing Organization Address [facility]/ZIP Co de Phone Number [facility] [address] [place] [address] * (ABNORMAL) ACTIVATED CLOTTING TIME LR POC (01/19/2025 1:43 PM EDT) ACT-LR 311(H) 89 - 169 second(s) 01/19/2025 1:48 PM EDT [facility] Blood BLOOD SPECIMEN / Unknown 01/19/2025 1:43 PM EDT 01/19/2025 1:48 PM EDT Michael Hilliard MD POINT OF CARE TEST ORDERABLES Fi nal Result Performing Organization Address City/[facility] de Phone Number [facility] [address] [place] [address] * (ABNORMAL) ACTIVATED CLOTTING TIME LR POC (01/19/2025 1:24 PM EDT) ACT-LR 283(H) 89 - 169 second(s) 01/19/2025 1:28 PM EDT [facility] Blood BLOOD SPECIMEN / Unknown 01/19/2025 1:24 PM EDT 01/19/2025 1:28 PM EDT Michael Hilliard MD POINT OF CARE TEST ORDERABLES Fi nal Result Performing Organization Address [facility] [place] [address] * (ABNORMAL) BASIC METABOLIC PANEL (01/19/2025 10:48 AM EDT) Pathologist [facility] Sodium 139 136 - 145 mmol/L 01/19/2025 11:25 AM EDT [facility] Potassium 3.9 3.5 - 5.0 mmol/L 01/19/2025 11:25 AM EDT [facility] Chloride 99 98 - 107 mmol/L 01/19/2025 11:25 AM EDT [facility] Total CO2 23 22 - 29 mmol/L 01/19/2025 11:25 AM EDT [facility] Anion Gap 17(H) 7 - 16 mmol/L 01/19/2025 11:25 AM EDT [facility] Calcium 9.3 8.6 - 10.4 mg/dL 01/19/2025 11:25 AM EDT [facility] Glucose Lvl 286(H) 70 - 99 mg/dL 01/19/2025 11:25 AM EDT [facility] BUN 13 6 - 20 mg/dL 01/19/2025 11:25 AM EDT [facility] Creatinine 0.79 0.51 - 1.30 mg/dL 01/19/2025 11:25 AM EDT [facility] eGFR (CKD-EPIcr 2020) 90 >=60 mL/min/1.7 3 m2 01/19/2025 11:25 AM EDT [facility] Comment:Estimated GFR was ca lculated using the CKD-EPIcr (2020) equation refit without race. The equation is recommended by the National Kidney Foundation - [place] [employer] of Nephrology Task Force. Blood VENOUS BLOOD / Unknown Venipuncture / Unknown 01/19/2025 10:48 AM EDT 01/19/2025 10:48 AM EDT Michelle Bull INSE[employer] CHEMISTRY ORDERABLES Final Result [facility] [address] [place] [phone] * (ABNORMAL) CBC WITH DIFF (01/19/2025 10:48 AM EDT) WBC 8.8 3.7 - 10.3 x10(3)/mcL 01/19/2025 10:56 AM EDT [facility] RBC 4.78 3.90 - 5.20 x10(6)/mcL 01/19/2025 10:56 AM EDT [facility] Hgb 13.3 11.2 - 15.7 g/dL 01/19/2025 10:56 AM EDT [facility] Hct 40.5 34.0 - 45.0 % 01/19/2025 10:56 AM EDT [facility] MCV 84.7 80.0 - 100.0 fL 01/19/2025 10:56 AM EDT [facility] MCH 27.8 26.0 - 34.0 pg 01/19/2025 10:56 AM EDT [facility] MCHC 32.8 30.7 - 35.5 g/dL 01/19/2025 10:56 AM EDT [facility] RDW 14.5 <=14.9 % 01/19/2025 10:56 AM EDT [facility] Platelet 230 155 - 369 x10(3)/mcL 01/19/2025 10:56 AM EDT [facility] MPV 9.3 8.8 - 12.5 fL 01/19/2025 10:56 AM EDT [facility] Neut Percent 76.2 % 01/19/2025 10:56 AM EDT [facility] Comment:Neutrophils equals s egs plus bands Imm Gran% 0.5 % 01/19/2025 10:56 AM EDT [facility] Comment:Automated count of m etamyelocytes, myelocytes and promyelocytes. Lymph Percent 13.9 % 01/19/2025 10:56 AM EDT [facility] [place] Percent 6.7 % 01/19/2025 10:56 AM EDT [facility] Eos Percent 2.6 % 01/19/2025 10:56 AM EDT [facility] Baso Percent 0.1 % 01/19/2025 10:56 AM EDT [facility] Neut # 6.7(H) 1.6 - 6.1 x10(3)/mcL 01/19/2025 10:56 AM EDT [facility] Comment:Neutrophils equals s egs plus bands IMMGRAN# 0.0 0.0 - 0.1 x10(3)/mcL 01/19/2025 10:56 AM EDT [facility] Comment:Automated count of m etamyelocytes, myelocytes and promyelocytes. An absolute IG <0.1 is reported as 0.0. [place] # 1.2 1.2 - 3.9 x10(3)/mcL 01/19/2025 10:56 AM EDT [facility] [place] # 0.6 0.3 - 0.9 x10(3)/mcL 01/19/2025 10:56 AM EDT [facility] Eos# 0.2 0.0 - 0.5 x10(3)/mcL 01/19/2025 10:56 AM EDT [facility] [place] # 0.0 0.0 - 0.1 x10(3)/mcL 01/19/2025 10:56 AM EDT [facility] Blood VENOUS BLOOD / Unknown Venipuncture / Unknown 01/19/2025 10:48 AM EDT 01/19/2025 10:48 AM EDT Michelle Bull [facility] ORDERABLES Final Result [facility] [address] [place] [address] documented in this encounter Visit Diagnoses Diagnosis Paroxysmal atrial fibrillation (HCC)- Primary Atrial fibrillation Status post ablation of atrial fibrillation Other postprocedural status A-fib (HCC) Atrial fibrillation Diabetes mellitus (HCC) Type II or unspecified type diabetes mellitus without mention of complication, not stated as uncontrolled Morbid obesity with BMI of 50.0-59.9, adult (HCC) Sleep apnea, obstructive Obstructive sleep apnea (adult) (pediatric) Depressive disorder Depressive disorder, not elsewhere classified Essential hypertension Unspecified essential hypertension Hyperlipidemia Other and unspecified hyperlipidemia CKD (chronic kidney disease) Chronic kidney disease, unspecified S/P ablation of atrial flutter Other postprocedural status Paroxysmal atrial fibrillation (HCC) Atrial fibrillation documented in this encounter Admitting Diagnoses Diagnosis Paroxysmal atrial fibrillation (HCC) Atrial fibrillation Status post ablation of atrial fibrillation Other postprocedural status A-fib (HCC) Atrial fibrillation documented in this encounter Administered Medications Inactive Administered Medications - up to 1 most recent administrations Medication Order MAR Action Action Date Dose Rate Site acetaminophen (TYLENOL) tablet 1,000 mg 1,000 mg, Oral, PREPROCEDURE, 1 dose, Starting on Sat01/18/25 at 1355, Until Sat01/19/25 at 1102, Coanalgesic, Do not give if patient received acetaminophen within the last 6 hours Maximum adult dose of acetaminophen is 4000 mg from all sources in 24 hours., Pre-op (Holding/SDS Meds) Given 01/19/2025 11:02 AM EDT 1,000 mg amLODIPine (NORVASC) tablet 10 mg 10 mg, Oral, DAILY, First dose on Sat01/19/25 at 1545, Until Discontinued Given 01/20/2025 8:57 AM EDT 10 mg apixaban (ELIQUIS) tablet 5 mg 5 mg, Oral, 2 TIMES DAILY, First dose on Sat01/19/25 at 2100, Until Discontinued Given 01/20/2025 8:57 AM EDT 5 mg atorvastatin (LIPITOR) tablet 40 mg 40 mg, Oral, NIGHTLY, First dose on Sat01/19/25 at 2100, Until Discontinued Given 01/19/2025 8:20 PM EDT 40 mg cyclobenzaprine (FLEXERIL) tablet 5 mg 5 mg, Oral, ONCE PRN, 1 dose, Starting on Sat01/20/25 at 0051, Until Sat01/20/25 at 0105, Muscle spasms Given 01/20/2025 1:05 AM EDT 5 mg desvenlafaxine succinate (PRISTIQ) 24 hr tablet 50 mg 50 mg, Oral, DAILY, First dose on Sat01/19/25 at 1545, Until Discontinued Given 01/20/2025 8:57 AM EDT 50 mg dextrose 50 % solution 25 mL 25 mL, Intravenous, PRN, Starting on Sat01/19/25 at 1959, Until Sat01/20/25 at 1656, Low blood sugar, If FSBS less than 70 mg/dl and patient cannot take orally, Check FSBS every 15 minutes and repeat 25 mL of D50 IV push and notify physician if FSBS less than 70 mg/dL VESICANT , Insulin Calculator fUROsemide (LASix) tablet 40 mg 40 mg, Oral, DAILY, First dose on Sat01/19/25 at 1545, Until Discontinued Given 01/20/2025 8:57 AM EDT 40 mg glucagon (GLUCAGEN) injection 1 mg 1 mg, Intramuscular, PRN, Starting on Sat01/19/25 at 1959, Until Sat01/20/25 at 1656, Low blood sugar, If FSBS less than 70 mg/dl, patient cannot take orally and without IV access, If patient is without IV access, give Glucagon 1 mg Intramuscularly, insert IV and call physician., Insulin Calculator hydrALAZINE (APRESOLINE) tablet 100 mg 100 mg, Oral, 3 TIMES DAILY, First dose on Sat01/19/25 at 1630, Until Discontinued Given 01/20/2025 8:57 AM EDT 100 mg hydroCHLOROthiazide tablet 25 mg 25 mg, Oral, DAILY, First dose on Sat01/19/25 at 1545, Until Discontinued Given 01/20/2025 8:57 AM EDT 25 mg HYDROcodone-acetaminophen (NORCO) 5-325 mg per tablet 1 Tablet 1 Tablet, Oral, EVERY 4 HOURS PRN, Starting on Sat01/19/25 at 1532, Until Sat01/20/25 at 1656, Pain Unrelieved by Oral Non-Opioid Therapy, Maximum adult dose of acetaminophen is 4000 mg from all sources in 24 hours. Given 01/20/2025 9:01 AM EDT 1 Tablet insulin aspart U-100 (NovoLOG) injection 0-40 Units 0-40 Units, Subcutaneous, 4 TIMES DAILY AFTER MEALS, First dose on Sat01/19/25 at 2145, Until Discontinued, PO Diet: Obtain FSBS before patient begins eating. Administer this dose, which includes nutritional (prandial) and correctional insulin upon completion of meal. If patient is NPO or declines meal tray, enter 0 (zero) of Carb Intake (grams) and continue with calculated correction insulin dose. Notify physician if FSBS less than 50 or greater than 350. Correction insulin doses must be by at least 3 hours. Waste Sort Code = BLACK RCRA Hazardous Waste Container, Carb Ratio (Patient Specific, Resistant) (g/unit): 4, Blood Glucose Target - Daytime (mg/dL): 140, Blood Glucose Target - Nighttime (mg/dL): 180, Hyperglycemic Correction Factor (Patient Specific, Resistant): 14, Insulin Calculator Given 01/20/2025 11:17 AM EDT 33 Units Right Arm insulin aspart U-100 (NovoLOG) injection 1-10 Units 1-10 Units, Subcutaneous, ONCE PRN, 1 dose, Starting on Sat01/19/25 at 1412, Until Sat01/19/25 at 1449, Other, PACU Hyperglycemia Correction, Type 2 DM weighing at least 80kg: FSBS Correction 121-149 1 unit 150-199 2 units 200-250 4 units 251-300 6 units 301-350 8 units 351-400 10 units Greater than 400___notify anesthesiologist If postop glucose value calls for insulin intervention, but less than (<) 3 hours has elapsed since last dose of subcutaneous insulin, call anesthesia coordinator for orders. Waste Sort Code = JONAH GARNETT Hazardous Waste Container, PACU Given 01/19/2025 2:49 PM EDT 4 Units Abdominal Tissue insulin aspart U-100 (NovoLOG) injection 10 Units 10 Units, Subcutaneous, ONCE, 1 dose, On Sat01/20/25 at 0315, PO Diet: Obtain FSBS before patient begins eating. If there is clinical concern for hypoglycemia, due to poor oral intake, the nutritional (prandial) with or without the correctional insulin can be administered upon completion of meal. If less than (<) 50% of the meal is consumed, reduce nutritional (prandial) dose by 50%. Document in the MAR the reason for delay of insulin administration. Tube Feeds: Hold nutritional (prandial) insulin until patient is at goal rate for continuous tube feeds. Administer correctional dose of insulin. Waste Sort Code = JONAH GARNETT Hazardous Waste Container Given 01/20/2025 3:16 AM EDT 10 Units Abdominal Tissue Insulin Calculator - FSBS and Carb Intake Input MISCELLANEOUS, 4 TIMES DAILY AFTER MEALS, First dose on Sat01/19/25 at 2145, Until Discontinued, Carb Ratio (Patient Specific, Resistant) (g/unit): 4, Blood Glucose Target - Daytime (mg/dL): 140, Blood Glucose Target - Nighttime (mg/dL): 180, Hyperglycemic Correction Factor (Patient Specific, Resistant): 14, Insulin Calculator lactated ringers infusion Intravenous, at 50 mL/hr, PREPROCEDURE CONTINUOUS, Starting on Sat01/18/25 at 1355, Until Sat01/19/25 at 1532, To be given in SDS/Pre-op Holding Area, Pre-op (Holding/SDS Meds) New Bag 01/19/2025 11:02 AM EDT 50 mL/hr losartan (COZAAR) tablet 100 mg 100 mg, Oral, DAILY, First dose on Sat01/19/25 at 1545, Until Discontinued, +++ARB Medication+++ Given 01/20/2025 8:57 AM EDT 100 mg metoclopramide HCl (REGLAN) injection 10 mg 10 mg, Intravenous, EVERY 6 HOURS PRN, Starting on Sat01/19/25 at 1532, Until Sat01/20/25 at 1656, Nausea, Post-op metoprolol succinate ER (TOPROL-XL) XL tablet 100 mg 100 mg, Oral, DAILY, First dose on Sat01/19/25 at 1545, Until Discontinued, May divide tablets in half; do not crush or chew. Given 01/20/2025 8:57 AM EDT 100 mg multivitamin with folic acid (THERAGRAN) 400 mcg tablet 1 Tablet 1 Tablet, Oral, DAILY, First dose on Sat01/19/25 at 1545, Until Discontinued Given 01/20/2025 8:57 AM EDT 1 Tablet ondansetron (ZOFRAN) injection 4 mg 4 mg, Intravenous, EVERY 6 HOURS PRN, Starting on Sat01/19/25 at 1532, Until Sat01/20/25 at 1656, Nausea, For nausea unrelieved by metoclopramide (REGLAN), Post-op oxyCODONE (ROXICODONE) immediate release tablet 5 mg 5 mg, Oral, EVERY 1 HOUR PRN, Starting on Sat01/19/25 at 1412, Until Sat01/19/25 at 1559, Pain, When tolerating oral intake. Maximum dose not to exceed 10 mg unless otherwise directed by the Anesthesia Coordinator., PACU Given 01/19/2025 2:53 PM EDT 5 mg pantoprazole (PROTONIX) 40 mg in sodium chloride 0.9% 10 mL injection 40 mg, Intravenous, PREPROCEDURE, 1 dose, Starting on Sat01/18/25 at 0659, Until Sat01/19/25 at 1101, Preprocedure, Administer in CCR for A-fib cryoablation, Pre-Procedure(Cath), Dx: 1. Paroxysmal atrial fibrillation (HCC)Indications:Paroxysm al atrial fibrillation (HCC) Given 01/19/2025 11:01 AM EDT 40 mg polyvinyl alcohol (LIQUIFILM TEARS) 1.4 % ophthalmic solution 2 Drop 2 Drop, Both Eyes, PRN, Starting on Sat01/19/25 at 1600, Until Sat01/20/25 at 1656, Other, dry or irritated eyes potassium chloride (KLOR-CON) tablet 10 mEq 10 mEq, Oral, DAILY, First dose on Sat01/19/25 at 1545, Until Discontinued Given 01/20/2025 8:57 AM EDT 10 mEq sodium chloride 0.9% syringe Intravenous, EVERY 12 HOURS SCHEDULED (2 times per day), First dose on Sat01/19/25 at 2100, Until Discontinued, Flush with 3-5 mL saline for PERIPHERAL saline lock maintenance. Given 01/20/2025 9:00 AM EDT sterile water injection 1 mL 1 mL, Injection, PRN, Starting on Sat01/19/25 at 1959, Until Sat01/20/25 at 1656, Use for drug dilution, Use to dilute and administer glucagon injection, Insulin Calculator documented in this encounter Discontinued Medications Medication Sig Discontinue Reason Start Date End Da te FLUoxetine (PROZAC) 20 mg Oral Capsule Take 40 mg by mouth daily. Removed During Admission Medication Review 01/19/2025 lisinopril (PRINIVIL;ZESTRIL) 40 mg tablet Take 40 mg by mouth 2 times daily. Stop Taking at Discharge 01/20/2025 traZODone (DESYREL) 100 mg Oral Tablet Take 100 mg by mouth nightly. Stop Taking at Discharge 01/20/2025 albuterol (PROVENTIL) 2.5 mg /3 mL (0.083 %) Inhl Solution for Nebulization Take 2.5 mg by nebulization every 6 hours as needed for Wheezing. Stop Taking at Discharge 01/20/2025 insulin lispro (HUMALOG KWIKPEN INSULIN) 100 unit/mL SubQ Insulin Pen Subcutaneous (Inject under the skin) 0-12 Units 3 times daily (with meals). Stop Taking at Discharge 08/19/2018 01/20/2025 Insulin glargine (LANTUS) 100 unit/mL (3 mL) SubQ Insulin Pen Subcutaneous (Inject under the skin) 100 Units every evening. Stop Taking at Discharge 01/20/2025 oxyCODONE (ROXICODONE) 5 mg Oral Tablet Stop Taking at Discharge 11/30/2021 01/20/2025 dilTIAZem 180 mg Oral Capsule, Sust. Release 24 hr Stop Taking at Discharge 12/26/2021 01/20/2025 dilTIAZem 300 mg Oral Capsule, Sust. Release 24 hr Stop Taking at Discharge 10/06/2024 01/20/2025 insulin aspart, niacinamide, 100 unit/mL (3 mL) SubQ Cartridge 7 units ac Stop Taking at Discharge 01/20/2025 documented as of this encounter Active and Recently Administered Medications Times are shown in EDT. Scheduled Medication Order 01/18/2025 01/19/2025 01/20/2025 amLODIPine (NORVASC) tablet 10 mg 10 mg, Oral, DAILY, First dose on Sat01/19/25 at 1545, Until Discontinued 154 (Not Given - Provider: Raina Mcgovern RN - Reason: Patient Declined - Comment: will restart home meds tomorrow per patient) 0857 (Given - Provider: Raina Mcgovern RN) apixaban (ELIQUIS) tablet 5 mg 5 mg, Oral, 2 TIMES DAILY, First dose on Sat01/19/25 at 2100, Until Discontinued 2019 (Given - Provider: Ame Chavarria RN) 0857 (Given - Provider: Raina Mcgovern RN) atorvastatin (LIPITOR) tablet 40 mg 40 mg, Oral, NIGHTLY, First dose on Sat01/19/25 at 2100, Until Discontinued 2020 (Given - Provider: Ame Chavarria RN) desvenlafaxine succinate (PRISTIQ) 24 hr tablet 50 mg 50 mg, Oral, DAILY, First dose on Sat01/19/25 at 1545, Until Discontinued 1545 (Not Given - Provider: Raina Mcgovern RN - Reason: Patient Declined - Comment: patient wants to restart home meds tomorrow) 0857 (Given - Provider: Raina Mcgovern RN) fUROsemide (LASix) tablet 40 mg 40 mg, Oral, DAILY, First dose on Sat01/19/25 at 1545, Until Discontinued 1545 (Not Given - Provider: Raina Mcgovern RN - Reason: Patient Declined) 0857 (Given - Provider: Raina Mcgovern RN) hydrALAZINE (APRESOLINE) tablet 100 mg 100 mg, Oral, 3 TIMES DAILY, First dose on Sat01/19/25 at 1630, Until Discontinued 174 (Given - Provider: Raina Mcgovern RN)2346 (Given - Provider: Ame Chavarria RN) 0857 (Given - Provider: Raina Mcgovern RN) hydroCHLOROthiazide tablet 25 mg 25 mg, Oral, DAILY, First dose on Sat01/19/25 at 1545, Until Discontinued 1545 (Not Given - Provider: Raina Mcgovern RN - Reason: Patient Declined - Comment: patient wishes to restart home meds tomorrow) 0857 (Given - Provider: Raina Mcgovern RN) insulin aspart U-100 (NovoLOG) injection 0-40 Units(Linked Group 1) 0-40 Units, Subcutaneous, 4 TIMES DAILY AFTER MEALS, First dose on Sat01/19/25 at 2145, Until Discontinued, PO Diet: Obtain FSBS before patient begins eating. Administer this dose, which includes nutritional (prandial) and correctional insulin upon completion of meal. If patient is NPO or declines meal tray, enter 0 (zero) of Carb Intake (grams) and continue with calculated correction insulin dose. Notify physician if FSBS less than 50 or greater than 350. Correction insulin doses must be by at least 3 hours. Waste Sort Code = BLACK [employer] Hazardous Waste Container, Carb Ratio (Patient Specific, Resistant) (g/unit): 4, Blood Glucose Target - Daytime (mg/dL): 140, Blood Glucose Target - Nighttime (mg/dL): 180, Hyperglycemic Correction Factor (Patient Specific, Resistant): 14, Insulin Calculator 234 (Given - Provider: Ame Chavarria RN - Comment: Instructed to give by Vandana Smith APRN.Verifed by Polly Corea RN) 1117 (Given - Provider: Raina Mcgovern RN)1200 (Due) insulin aspart U-100 (NovoLOG) injection 10 Units (COMPLETED) 10 Units, Subcutaneous, ONCE, 1 dose, On Sat01/20/25 at 0315, PO Diet: Obtain FSBS before patient begins eating. If there is clinical concern for hypoglycemia, due to poor oral intake, the nutritional (prandial) with or without the correctional insulin can be administered upon completion of meal. If less than (<) 50% of the meal is consumed, reduce nutritional (prandial) dose by 50%. Document in the MAR the reason for delay of insulin administration. Tube Feeds: Hold nutritional (prandial) insulin until patient is at goal rate for continuous tube feeds. Administer correctional dose of insulin. Waste Sort Code = BLACK [employer] Hazardous Waste Container 0316 (Given - Provid er: Ame Chavarria RN - Comment: Verified by Barb Corea RN) Insulin Calculator - FSBS and Carb Intake Input(Linked Group 1) MISCELLANEOUS, 4 TIMES DAILY AFTER MEALS, First dose on Sat01/19/25 at 2145, Until Discontinued, Carb Ratio (Patient Specific, Resistant) (g/unit): 4, Blood Glucose Target - Daytime (mg/dL): 140, Blood Glucose Target - Nighttime (mg/dL): 180, Hyperglycemic Correction Factor (Patient Specific, Resistant): 14, Insulin Calculator 2339 (Non- Med Documentation - Provider: Ame Chavarria RN) 0800 (Non- Med Documentation - Provider: Raina Mcgovern, RN)1200 (Due) insulin Regular Hum U-500 conc Soln 120 Units 120 Units, Subcutaneous, 2 TIMES DAILY, First dose on Sat01/20/25 at 0900, Until Discontinued, Waste Sort Code = BLACK RA Hazardous Waste Container 0900 (Due) losartan (COZAAR) tablet 100 mg 100 mg, Oral, DAILY, First dose on Sat01/19/25 at 1545, Until Discontinued, +++ARB Medication+++ 1545 (Not Given - Provider: Raina Mcgovern RN - Reason: Patient Declined - Comment: patient wants to restart home meds tomorrow) 0857 (Given - Provider: Raina Mcgovern, RN) metoprolol succinate ER (TOPROL-XL) XL tablet 100 mg 100 mg, Oral, DAILY, First dose on Sat01/19/25 at 1545, Until Discontinued, May divide tablets in half; do not crush or chew. 1741 (Given - Provider: Raina Mcgovern, RN) 0857 (Given - Provider: Raina Mcgovern, RN) multivitamin with folic acid (THERAGRAN) 400 mcg tablet 1 Tablet 1 Tablet, Oral, DAILY, First dose on Sat01/19/25 at 1545, Until Discontinued 1545 (Not Given - Provider: Raina Mcgovern, RN - Reason: Patient Declined) 0857 (Given - Provider: Raina Mcgovern, RN) potassium chloride (KLOR-CON) tablet 10 mEq 10 mEq, Oral, DAILY, First dose on Sat01/19/25 at 1545, Until Discontinued 1545 (Not Given - Provider: Raina Mcgovern RN - Reason: Patient Declined) 0857 (Given - Provider: Raina Mcgovern RN) sodium chloride 0.9% syringe Intravenous, EVERY 12 HOURS SCHEDULED (2 times per day), First dose on Sat01/19/25 at 2100, Until Discontinued, Flush with 3-5 mL saline for PERIPHERAL saline lock maintenance. 2020 (Given - Provider: Ame Chavarria RN) 0900 (Given - Provider: Raina Mcgovern RN) PRN Medication Order 01/18/2025 01/19/2025 01/20/2025 acetaminophen (TYLENOL) tablet 1,000 mg (COMPLETED) 1,000 mg, Oral, PREPROCEDURE, 1 dose, Starting on Sat01/18/25 at 1355, Until Sat01/19/25 at 1102, Coanalgesic, Do not give if patient received acetaminophen within the last 6 hours Maximum adult dose of acetaminophen is 4000 mg from all sources in 24 hours., Pre-op (Holding/SDS Meds) 1102 (Given - Provider: Laura Villaseñor RN) acetaminophen (TYLENOL) tablet 650 mg 650 mg, Oral, EVERY 4 HOURS PRN, Starting on Sat01/19/25 at 1532, Until Sat01/20/25 at 1656, Headaches, Maximum adult dose of acetaminophen is 4000 mg from all sources in 24 hours., Post-op aluminum & magnesium hydroxide-simethicone 200-200-20 mg/5 mL suspension 15 mL 15 mL, Oral, EVERY 4 HOURS PRN, Starting on Sat01/19/25 at 1532, Until Sat01/20/25 at 1656, Indigestion, Shake well., Post-op bupivacaine (MARCAINE/SENSORCAINE) 0.5 % (5 mg/mL) injection (CANCELED) INTRAPROCEDURE, Starting on Sat01/19/25 at 1255, Until Sat01/19/25 at 1430, Intra-procedure(Cath) 1255 (Given - Provider: Michael Hilliard MD) cyclobenzaprine (FLEXERIL) tablet 5 mg (COMPLETED) 5 mg, Oral, ONCE PRN, 1 dose, Starting on Sat01/20/25 at 0051, Until Sat01/20/25 at 0105, Muscle spasms 0105 (Given - Provider: Ame Chavarria, ENRICO) dextrose 50 % solution 25 mL 25 mL, Intravenous, PRN, Starting on Sat01/19/25 at 1959, Until Sat01/20/25 at 1656, Low blood sugar, If FSBS less than 70 mg/dl and patient cannot take orally, Check FSBS every 15 minutes and repeat 25 mL of D50 IV push and notify physician if FSBS less than 70 mg/dL VESICANT , Insulin Calculator docusate sodium (COLACE) capsule 100 mg 100 mg, Oral, 2 TIMES DAILY PRN, Starting on Sat01/19/25 at 1532, Until Sat01/20/25 at 1656, Constipation, Stool softening, Do not crush or chew., Post-op glucagon (GLUCAGEN) injection 1 mg(Linked Group 2) 1 mg, Intramuscular, PRN, Starting on Sat01/19/25 at 1959, Until Sat01/20/25 at 1656, Low blood sugar, If FSBS less than 70 mg/dl, patient cannot take orally and without IV access, If patient is without IV access, give Glucagon 1 mg Intramuscularly, insert IV and call physician., Insulin Calculator hydrALAZINE (APRESOLINE) injection 5 mg 5 mg, Intravenous, EVERY 4 HOURS PRN, Starting on Sat01/19/25 at 1532, Until Sat01/20/25 at 1656, High Blood Pressure, SBP greater than (>) 160, Administer over 2 minutes. , Blood Pressure options: SBP greater than (>) 180, Post-op HYDROcodone-acetaminophen (NORCO) 5-325 mg per tablet 1 Tablet 1 Tablet, Oral, EVERY 4 HOURS PRN, Starting on Sat01/19/25 at 1532, Until Sat01/20/25 at 1656, Pain Unrelieved by Oral Non-Opioid Therapy, Maximum adult dose of acetaminophen is 4000 mg from all sources in 24 hours. 1741 (Given - Provider: Raina Mcgovern RN)2204 (Given - Provider: Ame Chavarria, ENRICO) 0447 (Given - Provider: Ame Chavarria RN)0901 (Given - Provider: Raina Mcgovern RN) hydrOXYzine (VISTARIL) capsule 25 mg 25 mg, Oral, EVERY 6 HOURS PRN, Starting on Sat01/19/25 at 1532, Until Sat01/20/25 at 1656, Anxiety, Rash, Itching, Therapeutic Interchange for hydrOXYzine hcl 25mg tab insulin aspart U-100 (NovoLOG) injection 1-10 Units (COMPLETED) 1-10 Units, Subcutaneous, ONCE PRN, 1 dose, Starting on Sat01/19/25 at 1412, Until Sat01/19/25 at 1449, Other, PACU Hyperglycemia Correction, Type 2 DM weighing at least 80kg: FSBS Correction 121-149 1 unit 150-199 2 units 200-250 4 units 251-300 6 units 301-350 8 units 351-400 10 units Greater than 400___notify anesthesiologist If postop glucose value calls for insulin intervention, but less than (<) 3 hours has elapsed since last dose of subcutaneous insulin, call anesthesia coordinator for orders. Waste Sort Code = BLACK RCRA Hazardous Waste Container, PACU 1449 (Given - Provider: Alexi Chacon RN) ketorolac (TORADOL) injection 15 mg 15 mg, Intravenous, EVERY 6 HOURS PRN, Starting on Sat01/19/25 at 1532, Until Sat01/20/25 at 1656, post ablation pericardial pain, For IV Administration: Give undiluted over at least 15 seconds. Maximum IV dose is 30mg. For IM Administration: Give undiluted, slowly and deeply into the muscle., Post-op lactated ringers infusion (CANCELED) Intravenous, at 50 mL/hr, PREPROCEDURE CONTINUOUS, Starting on Sat01/18/25 at 1355, Until Sat01/19/25 at 1532, To be given in SDS/Pre-op Holding Area, Pre-op (Holding/SDS Meds) 1102 (New Bag - Provider: Laura Villaseñor RN)1437 (Anesthesia Volume Adjustment - Provider: Michael Daniel CRNA)1532 (Stopped - Provider: Raina Mcgovern RN - Comment: [Order ends at this time. Document the following action when infusion is complete: Stopped]) metoclopramide HCl (REGLAN) injection 10 mg(Linked Group 3) 10 mg, Intravenous, EVERY 6 HOURS PRN, Starting on Sat01/19/25 at 1532, Until Sat01/20/25 at 1656, Nausea, Post-op ondansetron (ZOFRAN) injection 4 mg(Linked Group 3) 4 mg, Intravenous, EVERY 6 HOURS PRN, Starting on Sat01/19/25 at 1532, Until Sat01/20/25 at 1656, Nausea, For nausea unrelieved by metoclopramide (REGLAN), Post-op oxyCODONE (ROXICODONE) immediate release tablet 5 mg (CANCELED) 5 mg, Oral, EVERY 1 HOUR PRN, Starting on Sat01/19/25 at 1412, Until Sat01/19/25 at 1559, Pain, When tolerating oral intake. Maximum dose not to exceed 10 mg unless otherwise directed by the Anesthesia Coordinator., PACU 1453 (Given - Provider: Alexi Chacon RN) pantoprazole (PROTONIX) 40 mg in sodium chloride 0.9% 10 mL injection (COMPLETED) 40 mg, Intravenous, PREPROCEDURE, 1 dose, Starting on Sat01/18/25 at 0659, Until Sat01/19/25 at 1101, Preprocedure, Administer in CCR for A-fib cryoablation, Pre-Procedure(Cath), Dx: 1. Paroxysmal atrial fibrillation (HCC) 1101 (Given - Provider: Laura Villaseñor RN) polyvinyl alcohol (LIQUIFILM TEARS) 1.4 % ophthalmic solution 2 Drop 2 Drop, Both Eyes, PRN, Starting on Sat01/19/25 at 1600, Until Sat01/20/25 at 1656, Other, dry or irritated eyes sodium chloride 0.9% IV line flush 20-50 mL 20-50 mL, Intravenous, at 150-600 mL/hr, PRN, Starting on Sat01/19/25 at 1532, Until Sat01/20/25 at 1656, Line Care, Flush with a minimum of 20 mL after IVPB to insure complete administration of the dose. May use the saline infusion to back flush IVPB tubing as needed. sodium chloride 0.9% syringe Intravenous, PRN, Starting on Sat01/19/25 at 1532, Until Sat01/20/25 at 1656, Line Care, Flush with 5-10 mL saline pre/post IVP, and 5 mL prior to IVPB or blood product administration. sterile water injection 1 mL(Linked Group 2) 1 mL, Injection, PRN, Starting on Sat01/19/25 at 1959, Until Sat01/20/25 at 1656, Use for drug dilution, Use to dilute and administer glucagon injection, Insulin Calculator traZODone (DESYREL) tablet 150 mg 150 mg, Oral, NIGHTLY PRN, Starting on Sat01/19/25 at 2100, Until Sat01/20/25 at 1656, Sleep, Take shortly after a meal or light snack. Linked Groups Order Group 1: Insulin Calculator - FSBS and Carb Intake InputJump to med MISCELLANEOUS, 4 TIMES DAILY AFTER MEALS, First dose on Sat01/19/25 at 2145, Until Discontinued, Carb Ratio (Patient Specific, Resistant) (g/unit): 4, Blood Glucose Target - Daytime (mg/dL): 140, Blood Glucose Target - Nighttime (mg/dL): 180, Hyperglycemic Correction Factor (Patient Specific, Resistant): 14, Insulin Calculator And insulin aspart U-100 (NovoLOG) injection 0-40 UnitsJump to med 0-40 Units, Subcutaneous, 4 TIMES DAILY AFTER MEALS, First dose on Sat01/19/25 at 2145, Until Discontinued, PO Diet: Obtain FSBS before patient begins eating. Administer this dose, which includes nutritional (prandial) and correctional insulin upon completion of meal. If patient is NPO or declines meal tray, enter 0 (zero) of Carb Intake (grams) and continue with calculated correction insulin dose. Notify physician if FSBS less than 50 or greater than 350. Correction insulin doses must be by at least 3 hours. Waste Sort Code = BLACK [employer] Hazardous Waste Container, Carb Ratio (Patient Specific, Resistant) (g/unit): 4, Blood Glucose Target - Daytime (mg/dL): 140, Blood Glucose Target - Nighttime (mg/dL): 180, Hyperglycemic Correction Factor (Patient Specific, Resistant): 14, Insulin Calculator Group 2: glucagon (GLUCAGEN) injection 1 mgJump to med 1 mg, Intramuscular, PRN, Starting on Sat01/19/25 at 1959, Until Sat01/20/25 at 1656, Low blood sugar, If FSBS less than 70 mg/dl, patient cannot take orally and without IV access, If patient is without IV access, give Glucagon 1 mg Intramuscularly, insert IV and call physician., Insulin Calculator And sterile water injection 1 mLJump to med 1 mL, Injection, PRN, Starting on Sat01/19/25 at 1959, Until Sat01/20/25 at 1656, Use for drug dilution, Use to dilute and administer glucagon injection, Insulin Calculator Group 3: metoclopramide HCl (REGLAN) injection 10 mgJump to med 10 mg, Intravenous, EVERY 6 HOURS PRN, Starting on Sat01/19/25 at 1532, Until Sat01/20/25 at 165, Nausea, Post-op Or ondansetron (ZOFRAN) injection 4 mgJump to med 4 mg, Intravenous, EVERY 6 HOURS PRN, Starting on Sat01/19/25 at 1532, Until Sat01/20/25 at 1656, Nausea, For nausea unrelieved by metoclopramide (REGLAN), Post-op documented in this encounter Orders Medications Ordered That Michael ht Not Have Been Administered Count Last Ordered Date First Ordered Date insulin Regular Hum U-500 co nc Soln 120 Units 1 01/20/2025 acetaminophen (TYLENOL) tablet 650 mg 1 aluminum & magnesium hydroxi de-simethicone 200-200-20 mg/5 mL suspension 15 mL 1 01/19/2025 bupivacaine (MARCAINE/SENSOR REYNALDO) 0.5 % (5 mg/mL) injection 1 01/19/2025 dextrose 50 % solution 25 mL 1 01/19/2025 dimenhyDRINATE (DRAMAMINE) 1 2.5-25 mg in sodium chloride 0.9% injection 1 01/19/2025 docusate sodium (COLACE) capsule 100 mg 1 1 droPERidol (INAPSINE) injection 0.625 mg 1 01/19/2025 fentaNYL (SUBLIMAZE) injection 25 mcg 1 FLUoxetine (PROzac) capsule 40 mg 1 025 glucagon (GLUCAGEN) injection 1 mg 1 2024 hydrALAZINE (APRESOLINE) injection 5 mg 1 1 HYDROmorphone (DILAUDID) injection 0.25 mg 1 01/19/2025 hydrOXYzine (VISTARIL) capsule 25 mg 1 12/24 Insulin Calculator - FSBS an d Carb Intake Input 1 01/19/2025 ketorolac (TORADOL) injection 15 mg 1 01/19 metoclopramide HCl (REGLAN) injection 10 mg 1 01/19/2025 ondansetron (ZOFRAN) injection 4 mg 2 01/19 ondansetron (ZOFRAN-ODT) dis integrating tablet 8 mg 1 01/19/2025 polyvinyl alcohol (LIQUIFILM TEARS) 1.4 % ophthalmic solution 2 Drop 1 01/19/2025 sodium chloride 0.9% IV line flush 20-50 mL 1 01/19/2025 sodium chloride 0.9% syringe 1 01/19/2025 sterile water injection 1 mL 1 01/19/2025 traZODone (DESYREL) tablet 100 mg 1 025 traZODone (DESYREL) tablet 150 mg 1 025 insulin aspart U-100 (NovoLO G) injection 1-10 Units 1 01/18/2025 lactated ringers infusion 1 01/18/2025 Consult Count Last Ordered Date First Orde red Date IP CONSULT TO HOSPITALIST 1 01/19/2025 Admission Count Last Ordered Date First Orde red Date ADMIT 2 01/19/2025 Discharge Count Last Ordered Date First Orde red Date DISCHARGE PATIENT 1 01/20/2025 documented in this encounter Additional Health Concerns Assessment Noted Time PHQ-9 Depression Total Score: 1 01/21/20 25 10:45 AM EDT PHQ-2 Depression Total Score: 1 01/21/20 25 10:45 AM EDT documented as of this encounter Care Teams Residential Leasing Manager Relationship Specialty Start Date End Date Carlos Dean MD PCP - General 11/08/09 documented as of this encounter
--- OUTSIDE RECORDS SUMMARY | 2025-01-19 10:25 | XMS_ITS | Encounter Summary ---
Author Organization [place] [address] Care Team Providers Care Religious Leader Name Role Phone Carlos Dean MD Primary Care Provider [phone] Reason for Visit * Auth/Cert/Inpt Specialty Diagnoses / Procedures Referred By Contac t Referred To Contact Diagnoses Paroxysmal atrial fibrillation (HCC) Paroxysmal atrial fibrillation (HCC) [I48.0] Procedures MN COMPRE EP EVAL ABLTJ ATR FIB PULM VEIN ISOLATION MN ICAR CATH ABLATION DISCRETE MECHANISM ARRHYTHMIA MN INTRACARDIAC ELECTROPHYSIOLOGIC 3D MAPPING MN INTRACARD ECHOCARD W/THER/DX IVNTJ INCL IMG S&I PAROXYSMAL ATRIAL FIBRILLATION ABLATION WITH 3D MAPPING Referral ID Status Reason Start Date Expiration Date Visits Re quested Visits Authorized [id number] 1 1 Encounter Details Date Type Department Care Team (Late st Contact Info) Description 01/19/2025 11:25 AM EDT - 01/19/2025 1:50 PM EDT Surgery EDG STUDIO DATA ANALYST [facility] [place] [address] Michael Hilliard MD [address] [place] [id number] PAROXYSMAL ATRIAL FIBRILLATION ABLATION WITH 3D MAPPING Surgery Details Date/Time Status Location OR Service Patient Class Case Class Case Type Trauma Case? 01/19/2025 11:25 AM Posted EDG CARDIAC STUDIO DATA ANALYST IMAGING [facility] EP LAB 2 Cardiac Same Day Surgery Elective Panel 1 Procedure LRB Anes Op Region Wound Class Comments PAROXYSMAL ATRIAL FIBRILLATION ABLATION WITH 3D MAPPING N/A General PAROXYSMAL ATRIAL FIBRILLATION ABLATION WITH 3D MAPPING Surgeon Surgeon Role Service Panel Michale Hilliard MD Primary Cardiac 1 Special Needs 9:25am arrival documented in this encounter Social History Tobacco Use Types Packs/Day Years [...] medical care, and heating? Somewhat hard 01/20/2025 [facility] [place] of Occupat ional Health - Occupational Stress [...] money to get more. Never true 01/20/2025 [facility] Utilities Answer Date Recorded In the past 12 months has th e electric, gas, oil, or water company threatened to shut off services in your home? No 01/20/2025 [facility] Transportation Answer D ate Recorded In [...] Sign Reading Time Taken Comments Blood Pressure 135/91 01/19/2025 10:49 AM EDT Pulse 140 01/19/2025 10:27 AM EDT Temperature 35.9 C (96.6 F) 01/19/2025 10:27 AM EDT Respiratory Rate 16 01/19/2025 10:27 AM EDT Oxygen Saturation 96% 01/19/2025 10:27 AM EDT Inhaled Oxygen Concentration - - Weight 164.7 kg (363 lb) 01/19/2025 10:19 AM EDT Height 170.2 cm (5' 7 ) 01/19/2025 10:19 AM EDT Body Mass Index 56.85 01/19/2025 5:22 [...] from the original note were not included. [facility] Discharge Summary Patient Name: Eliz Daniels [...] for Tx. She's scheduled to see an licensing court magistrate outpatient. Discussed with her/family the need to [...] noted Psychiatric: Normal mood, affect, and behavior [id number] Stroke Risk Points: 3 Values used to [...] Your Medications These medications were sent to [facility] [address] [address] Hours: Saturday-Saturday 8:00am - 6:30pm Saturday-Saturday 9:00am - 5:00pm pantoprazole 40 mg [facility] Follow Up: Michelle Bull APRN [address] [address] Follow up on 03/08/2025 at 2:00 pm [...] Or any questions about your medications. [facility] [address] [place] [address] Carl Hand. [address] [place] [address] +++++++++++++++++++++++++++++++++++++++++++++++++++++++++++++++++++ [facility] Discharge Instructions - Following Anesthesia We [...] our office at . Get Well Soon! [facility] +++++++++++++++++++++++++++++++++++++++++++++++++++++++++++++++++++ documented in this encounter Medications at Time of Discharge amLODIPine (NORVASC) 10 mg Oral Tablet Take 10 mg by mouth daily. atorvastatin (LIPITOR) 40 mg Oral Tablet Take 40 mg by mouth nightly. at bedtime desvenlafaxine 50 mg Oral Tablet Sustained Release 24 hr Take 1 tablet every day by oral route. DEXCOM G7 SENSOR [facility] 12/04/2024 ELIQUIS 5 mg Oral Tablet Take 1 tablet twice a day by oral route. FREESTYLE LANCETS 28 gauge [facility] 10/20/2024 fUROsemide (LASIX) 40 mg Oral Tablet [...] Caregiver Name Cornelius-spouse Caregiver Does patient need jig boring machine set up operator? No Activities of Daily Living Prior to [...] not needed concern identified and addressed by Senior Litigation Paralegal Anticipated post-acute care needs Home with OP Follow Up Discussed discharge plans with Patient/Family/Caregiver/Support Person Yes, Discussed with patient and caregiver/support person Actual Discharge Plan 01/20/25 CC INITIAL and FINAL NOTE: Pt admitted for Paroxysmal atrial fibrillation. Spoke with pt and spouse at bedside. PCP is Dr Dean. Pharmacy is [facility] and denies any issuesaffording medications. No HHC, but has used in the past. See DME above. Pt needs assistance with ADL's and lives with spouse, Cornelius ([phone]), and he can transport home at d/c. [...] A&Ox4. Chronic leg pain managed with PRN [place] and one time dose of flexeril. Denies SOA. IV without complication. R groin site is clean, dry, and intact with no signs of bleeding or hematoma. Call light and belongings in reach. Pt had no orders for insulin or BG checks. Message sent to pest control pilot for Judy ARCHER PA with following message, [...] Hilliard MD - 01/19/2025 2:15 PM EDT [facility] OPERATIVE/PROCEDURE NOTE Joel Eliz L January 19, 2025 Body mass index is [...] AM EDTAssociated Order(s): IP CONSULT TO HOSPITALIST [facility] Consult Note Name: Eliz Daniels : [...] 12 LEAD Result Date: 01/20/2025 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 Active Hospital Problems Diagnosis *Paroxysmal atrial fibrillation (HCC) CKD (chronic kidney disease) Status post ablation of atrial fibrillation A-fib ([facility]) Depressive disorder Sleep apnea, obstructive Morbid obesity with BMI of 50.0-59.9, adult ([facility]) Hyperlipidemia Diabetes mellitus ([facility]) Essential hypertension Admission Assessment and Plan: Assessment & Plan Paroxysmal atrial fibrillation ([facility]) Status post ablation of atrial fibrillation -s/p ablation with 3D mapping 01/19 -toproxl XL -Eliquis -Management per EP Diabetes mellitus ([facility]) -Uncontrolled -A1c 8.9 -Reports regimen has recently [...] Morbid obesity with BMI of 50.0-59.9, adult ([facility]) -Complicates all aspects of care Sleep apnea, [...] High Risk (09/26/2021) [facility] [employer] [facility] 1.0 Has lack of transportation kept [...] ON CHART, ADMITTED TO TELEMETRY FLOOR FROM STUDIO DATA ANALYST FOR PROCEDURE(S): Procedure(s): PAROXYSMAL ATRIAL FIBRILLATION ABLATION [...] Ctr Edg [address] [facility] [address] [place] [address] Michelle Bull APRN [address] [place] [address] documented as of this encounter [...] 8:37 AM EDTThis note is in progress. [facility] Consult Note Name: Eliz Daniels : [...] consulted for hyperglycemia. She reports that she [id number] 140U bid with BG that typically run in 200s. Does not administer anyshort acting insulin throughout the day. Last dose of insulin was AM01/18. After intervention yesterday, did not watch what [...] 01/20/2025 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: : 1975 Requested By: MICHAEL Juarez Order Number: [id number] Reading MD: Zackery Mcgraw Measurements Intervals [place] Rate: 84 P: 64 MN: 180 QRS: -12 QRSD: 89 T: 59 [...] Morbid obesity with BMI of 50.0-59.9, adult ([facility]) -Complicates all aspects of care Sleep apnea, [...] Diagnosis Date Cardiomegaly CHF (congestive heart failure) ([facility]) Complication of anesthesia hard to arouse x 1 or COPD (chronic obstructive pulmonary disease) ([facility]) Depression Diabetes mellitus ([facility]) Type II Diverticulosis DELEON (dyspnea on exertion) Heartburn Hypertension Leg swelling renate occ Neuromuscular disorder ([facility]) hands and feet Syncope and collapse Unspecified [...] ER (TOPROL-XL) 100 mg Oral Tablet Sustained Hbgunop07 hr multivitamin (THERAGRAN) Oral Tablet Take 1 [...] Transportation Needs: High Risk (09/26/2021) Received from [employer] Medicaid PRAPARE Survey 1.0 Has lack of transportation kept you from medical appointments, meetings,work, or from getting things needed for daily living? Check all thatapply.: Yes, it has kept me from medical appointments or from getting mymedications Housing Stability: Low Risk (09/26/2021) Received from [facility] Medicaid PRAPARE Survey 1.0 What is your [...] GLUCOSE METER POC (01/20/2025 10:20 AM EDT) [facility] Glucose Meter POC 315(H) 70 - 100 mg/dL 01/20/2025 10:22 AM EDT [facility] Sample Type Capillary 01/20/2025 10:22 AM EDT [facility] Patient Status Non-Critical Patient 01/20/2025 10:22 AM EDT [facility] Blood BLOOD SPECIMEN / Unknown 01/20/2025 10:20 AM EDT 01/20/2025 10:22 AM EDT us Michael Hilliard MD POINT OF CARE TEST ORDERABLES Fi nal Result [facility] [address] [id number] * ECG AND WAVEFORMS - TELEMETRY (01/20/2025 7:26 AM EDT) Pathologist [facility] ECG INTERPRET NSR [facility] 01/20/2025 7:26 AM EDT Narrative [facility] - 01/20/2025 7:31 AM EDT ROUTINE (BS) MN 0.19 QRS 0.08 RR 0.82 QT 0.44 QTc 0.49 See Clinical Report link for waveform capture us Unknown Provider POINT OF CARE CARDIOLOGY Final Result [facility] [address] [id number] * (ABNORMAL) CBC WITH DIFF (01/20/2025 7:02 AM EDT) Pathologist [facility] WBC 13.9(H) 3.7 - 10.3 x10(3)/mcL 01/20/2025 [...] Percent 83.6 % 01/20/2025 7:29 AM EDT [facility] Comment:Neutrophils equals s egs plus bands Imm Gran% 0.9 % 01/20/2025 7:29 AM EDT [facility] Comment:Automated count of m etamyelocytes, myelocytes and promyelocytes. Lymph Percent 7.9 % 01/20/2025 7:29 AM EDT [facility] [place] Percent 7.1 % 01/20/2025 7:29 AM EDT [facility] Eos Percent 0.1 % 01/20/2025 7:29 AM EDT [facility] Baso Percent 0.4 % 01/20/2025 7:29 AM EDT [facility] Neut # 11.6(H) 1.6 - 6.1 x10(3)/mcL 01/20/2025 7:29 AM EDT [facility] Comment:Neutrophils equals s egs plus bands IMMGRAN# 0.1 0.0 - 0.1 x10(3)/mcL 01/20/2025 7:29 AM EDT [facility] Comment:Automated count of m etamyelocytes, myelocytes and promyelocytes. An absolute IG <0.1 is reported as 0.0. Lymph # 1.1(L) 1.2 - 3.9 x10(3)/mcL 01/20/2025 7:29 AM EDT [facility] [place] # 1.0(H) 0.3 - 0.9 x10(3)/mcL 01/20/2025 7:29 AM EDT [facility] Eos# 0.0 0.0 - 0.5 x10(3)/mcL 01/20/2025 7:29 AM EDT [facility] Baso # 0.1 0.0 - 0.1 x10(3)/mcL 01/20/2025 7:29 AM EDT [facility] Blood VENOUS BLOOD / Unknown Venipuncture / Unknown 01/20/2025 7:02 AM EDT 01/20/2025 7:14 AM EDT Bg Garcia DO HEMATOLOGY ORDERABLES Final Result [facility] [address] [facility] , [place] [address] * (ABNORMAL) BASIC METABOLIC PANEL (01/20/2025 7:02 AM EDT) Sodium 134(L) 136 - 145 mmol/L 01/20/2025 8:02 AM EDT [facility] Potassium 4.5 3.5 - 5.0 mmol/L 01/20/2025 8:02 AM EDT [facility] Chloride 97(L) 98 - 107 mmol/L 01/20/2025 8:02 AM EDT [facility] Total CO2 22 22 - 29 mmol/L [...] recommended by the National Kidney Foundation - [place] Society of Nephrology Task Force. Blood VENOUS BLOOD / Unknown Venipuncture / Unknown 01/20/2025 7:02 AM EDT 01/20/2025 7:14 AM EDT Bg Garcia DO CHEMISTRY ORDERABLES Final R esult [facility] [employer] [address] , [address] [place], [place] [id number] * (ABNORMAL) HEMOGLOBIN A1C (01/20/2025 7:02 AM EDT) [facility] Hgb A1C 8.9(H) 4.2 - 5.6 % 01/20/2025 7:52 AM EDT [facility] [employer] [facility] Est. Avg Glucose 209 mg/dL 01/20/2025 7:52 AM EDT [facility] [employer] [facility] Blood VENOUS BLOOD / Unknown Venipuncture / Unknown 01/20/2025 7:02 AM EDT 01/20/2025 7:14 AM EDT Narrative [facility] [employer] [facility] - 01/20/2025 7:52 AM EDT REFERENCE RANGE: Normal: 4.0-5.6% Pre-diabetes: 5.7-6.4% Provisional diagnosis of diabetes: >6.4% Hgb F>10% and anything which shortens red cell survival, such as hemolytic anemia, or unstable hemoglobin variants such as HbSS, HbSC, or HbCC, will lower the HbA1c value associated with a given level of glycemic control. us Bg Garcia DO CHEMISTRY ORDERABLES Final R esult Performing Organization Address [facility] Co de Phone Number [facility] [employer] , [place] [address] * (ABNORMAL) GLUCOSE METER POC (01/20/2025 4:30 AM EDT) [facility] Glucose Meter POC 359(H) 70 - 100 mg/dL 01/20/2025 4:31 AM EDT [facility] Sample Type Capillary 01/20/2025 4:31 AM EDT [facility] Patient Status Non-Critical Patient 01/20/2025 4:31 AM EDT [facility] Blood BLOOD SPECIMEN / Unknown 01/20/2025 4:30 AM EDT 01/20/2025 4:31 AM EDT us Michael Hilliard MD POINT OF CARE TEST ORDERABLES Fi nal Result Performing Organization Address [facility] [place] [address] * (ABNORMAL) GLUCOSE METER POC (01/20/2025 3:05 AM EDT) Glucose Meter POC 422(H) 70 - 100 mg/dL 01/20/2025 3:06 AM EDT [facility] Sample Type Capillary 01/20/2025 3:06 AM EDT [facility] Patient Status Non-Critical Patient 01/20/2025 3:06 AM EDT [facility] Blood BLOOD SPECIMEN / Unknown 01/20/2025 3:05 AM EDT 01/20/2025 3:06 AM EDT Michael Hilliard MD POINT OF CARE TEST ORDERABLES Fi nal Result Performing Organization Address [facility] [place] [address] * (ABNORMAL) GLUCOSE METER POC (01/20/2025 12:56 AM EDT) Glucose Meter POC 489(HH) 70 - 100 mg/dL 01/20/2025 12:58 AM EDT [facility] Sample Type Capillary 01/20/2025 12:58 AM EDT [facility] Patient Status Non-Critical Patient 01/20/2025 12:58 AM EDT [facility] Blood BLOOD SPECIMEN / Unknown 01/20/2025 12:56 AM EDT 01/20/2025 12:58 AM EDT Narrative [facility] - 01/20/2025 12:58 AM EDT Critical results for Point of Care instruments are made directly available to testing personnel and should be communicated to the healthcare provider. Michael Hilliard MD POINT OF CARE TEST ORDERABLES Fi nal Result Performing Organization Address [facility]/ZIP Co de Phone Number [facility] [address] [place] [address] * (ABNORMAL) GLUCOSE METER POC (01/19/2025 11:36 PM EDT) Glucose Meter POC 521(HH) 70 - 100 mg/dL 01/19/2025 11:38 PM EDT [facility] Sample Type Capillary 01/19/2025 11:38 PM EDT [facility] Patient Status Non-Critical Patient 01/19/2025 11:38 PM EDT [facility] Blood BLOOD SPECIMEN / Unknown 01/19/2025 11:36 PM EDT 01/19/2025 11:38 PM EDT Narrative [facility] - 01/19/2025 11:38 PM EDT Critical results for Point of Care instruments are made directly available to testing personnel and should be communicated to the healthcare provider. us Michael Hilliard MD POINT OF CARE TEST ORDERABLES Fi nal Result Performing Organization Address [facility] Co de Phone Number [address] [address] * (ABNORMAL) GLUCOSE METER POC (01/19/2025 11:13 PM EDT) Glucose Meter POC 548(HH) 70 - 100 mg/dL 01/19/2025 11:15 PM EDT [facility] Sample Type Capillary 01/19/2025 11:15 PM EDT [facility] Patient Status Non-Critical Patient 01/19/2025 11:15 PM EDT [facility] Blood BLOOD SPECIMEN / Unknown 01/19/2025 11:13 PM EDT 01/19/2025 11:15 PM EDT Narrative [facility] - 01/19/2025 11:15 PM EDT Critical results for Point of Care instruments are made directly available to testing personnel and should be communicated to the healthcare provider. Michael Hilliard MD POINT OF CARE TEST ORDERABLES Fi nal Result Performing Organization Address [facility]/ZIP Co de Phone Number [address] [address] * ECG AND WAVEFORMS - TELEMETRY (01/19/2025 7:00 PM EDT) ECG INTERPRET First Degree Sinus Rhythm [facility] 01/19/2025 7:00 PM EDT Narrative [facility] - 01/19/2025 7:09 PM EDT 1ST DEGREE AVB - ROUTINE/EW MN 0.22 QRS 0.08 RR 0.73 QT 0.41 QTc 0.48 See Clinical Report link for waveform capture us Unknown Provider POINT OF CARE CARDIOLOGY Final Result Performing Organization Address [facility]/ZIP Co de Phone Number [facility] [address] [place] [address] * ECG AND WAVEFORMS - TELEMETRY (01/19/2025 4:06 PM EDT) ECG INTERPRET NSR [facility] 01/19/2025 4:06 PM EDT Narrative [facility] - 01/19/2025 4:45 PM EDT MG/ADMIT MN 0.19 QRS 0.07 RR 0.70 QT 0.38 QTc 0.45 See Clinical Report link for waveform capture us Unknown Provider POINT OF CARE CARDIOLOGY Final Result Performing Organization Address [facility] Co de Phone Number [facility] [address] [place] [address] * EK EKG 12 LEAD (01/19/2025 3:32 PM EDT) Anatomical Region Laterality Modality Electrocardiogra phy 01/19/2025 3:39 PM EDT Impressions 01/20/2025 8:[address] 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 : 1975 Requested By: MICHAEL Juarez Order Number: [id number] Gladys MD: Zackery Mcgraw Measurements Intervals [place] Rate: 84 P: 64 MN: 180 QRS: -12 QRSD: 89 T: 59 QT: 402 QTc: 476 Interpretive Statements SINUS RHYTHM PRWP NONSPECIFIC T-WAVE ABNORMALITY Electronically Signed On 01-20-2025 08:39:51 EDT by Zackery Mcgraw Narrative Procedure Note Zackery Mcgraw MD - 01/20/2025 LINDSEY Campbell Test Date: 2025-01-19 Pat Name: ELIZ DANIELS Department: DEPID Room: [facility] Gender: Female 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 : 1975 Requested By: MICHAEL Juarez Order Number: [id number] Reading MD: Zackery Mcgraw Measurements Intervals [place] Rate: 84 P: 64 MN: 180 QRS: -12 QRSD: 89 T: 59 QT: 402 QTc: 476 Interpretive Statements SINUS RHYTHM PRWP NONSPECIFIC T-WAVE ABNORMALITY Electronically Signed On 01-20-2025 08:39:51 EDT by Zackery Mcgraw us Michael Hilliard MD IMG ECG ORDERABLES Final Result * (ABNORMAL) GLUCOSE METER POC (01/19/2025 2:39 PM EDT) [facility] Glucose Meter POC 247(H) 70 - 100 mg/dL 01/19/2025 2:40 PM EDT [facility] Sample Type Capillary 01/19/2025 2:40 PM EDT [facility] Patient Status Non-Critical Patient 01/19/2025 2:40 PM EDT [facility] Blood BLOOD SPECIMEN / Unknown 01/19/2025 2:39 PM EDT 01/19/2025 2:40 PM EDT us Michael Hilliard MD POINT OF CARE TEST ORDERABLES Fi nal Result [facility] [address] [place] [address] * PAROXYSMAL ATRIAL FIBRILLATION ABLATION WITH 3D MAPPING (01/19/2025 2:30 PM EDT) Narrative [facility] - 01/22/2025 10:21 AM EDT Successful PVI for PAF Successful CTI line for typical atrial flutter Procedure Details [facility] Electrophysiology Procedure [...] gained access in right femoral vein. A 9-[place] sheath for ICE, 8F sheath for CS [...] injection, pressure monitoring , and fluoroscopy in ARABIC and ROSA projections. We placed the SL-1 Sheaths inside the left atrium. Then a [place]- array catheter with deflectable curve was advanced into the sheath which was later exchanged to an irrigated ablation catheter. Using [place]- Array catheter and Carto navigation system a [...] Hilliard MD ELECTROPHYSIOLOGY ORDERABLES Fin al Result [facility] * (ABNORMAL) ACTIVATED CLOTTING TIME LR POC (01/19/2025 2:01 PM EDT) Pathologist [facility] ACT-LR 326(H) 89 - 169 second(s) 01/19/2025 3:32 PM EDT [facility] Blood BLOOD SPECIMEN / Unknown 01/19/2025 2:01 PM EDT 01/19/2025 3:32 PM EDT Michael Hilliard MD POINT OF CARE TEST ORDERABLES Fi nal Result Performing Organization Address City/[facility] Co de Phone Number [facility] [address] [place] [address] * (ABNORMAL) ACTIVATED CLOTTING TIME LR POC (01/19/2025 1:43 PM EDT) ACT-LR 311(H) 89 - 169 second(s) 01/19/2025 1:48 PM EDT [facility] Blood BLOOD SPECIMEN / Unknown 01/19/2025 1:43 PM EDT 01/19/2025 1:48 PM EDT Michael Hilliard MD POINT OF CARE TEST ORDERABLES Fi nal Result Performing Organization Address [facility] de Phone Number [facility] [address] [place] [address] * (ABNORMAL) ACTIVATED CLOTTING TIME LR POC (01/19/2025 1:24 PM EDT) ACT-LR 283(H) 89 - 169 second(s) 01/19/2025 1:28 PM EDT [facility] Blood BLOOD SPECIMEN / Unknown 01/19/2025 1:24 PM EDT 01/19/2025 1:28 PM EDT Michael Hilliard MD POINT OF CARE TEST ORDERABLES Fi nal Result Performing Organization Address [facility] de Phone Number [facility] [address] [place] [address] * (ABNORMAL) BASIC METABOLIC PANEL (01/19/2025 10:48 AM EDT) Sodium 139 136 - 145 mmol/L 01/19/2025 11:25 AM EDT [facility] Potassium 3.9 3.5 - 5.0 mmol/L 01/19/2025 11:25 AM EDT [facility] Chloride 99 98 - 107 mmol/L 01/19/2025 11:25 AM EDT [facility] Total CO2 23 22 - 29 mmol/L 01/19/2025 11:25 AM EDT [facility] Anion Gap 17(H) 7 - 16 mmol/L 01/19/2025 11:25 AM EDT [facility] Calcium 9.3 8.6 - 10.4 mg/dL 01/19/2025 11:25 AM EDT [facility] Glucose Lvl 286(H) 70 - 99 mg/dL 01/19/2025 11:25 AM EDT [facility] BUN 13 6 - 20 mg/dL 01/19/2025 11:25 AM EDT [facility] Creatinine 0.79 0.51 - 1.30 mg/dL 01/19/2025 11:25 AM EDT [facility] eGFR (CKD-EPIcr 2020) 90 >=60 mL/min/1.7 3 m2 01/19/2025 11:25 AM EDT [facility] Comment:Estimated GFR was ca lculated using the CKD-EPIcr (2020) equation refit without race. The equation is recommended by the [employer] - [employer] [place] [employer] Nephrology Task Force. Blood VENOUS BLOOD / Unknown Venipuncture / Unknown 01/19/2025 10:48 AM EDT 01/19/2025 10:48 AM EDT Michelle Blul [employer] CHEMISTRY ORDERABLES Final Result [facility] [address] [place], [place] [id number] * (ABNORMAL) CBC WITH DIFF (01/19/2025 10:48 AM EDT) WBC 8.8 3.7 - 10.3 x10(3)/mcL 01/19/2025 10:56 AM EDT [facility] RBC 4.78 3.90 - 5.20 x10(6)/mcL 01/19/2025 10:56 AM EDT [facility] Hgb 13.3 11.2 - 15.7 g/dL 01/19/2025 10:56 AM EDT [facility] Hct 40.5 34.0 - 45.0 % 01/19/2025 10:56 AM EDT [facility] MCV 84.7 80.0 - 100.0 fL 01/19/2025 10:56 AM EDT [facility] MCH 27.8 26.0 - 34.0 pg 01/19/2025 10:56 AM EDT [facility] MCHC 32.8 30.7 - 35.5 g/dL 01/19/2025 10:56 AM EDT [facility] RDW 14.5 <=14.9 % 01/19/2025 10:56 AM EDT [facility] Platelet 230 155 - 369 x10(3)/mcL 01/19/2025 10:56 AM EDT [facility] MPV 9.3 8.8 - 12.5 fL 01/19/2025 10:56 AM EDT [facility] Neut Percent 76.2 % 01/19/2025 10:56 AM EDT [facility] Comment:Neutrophils equals s egs plus bands Imm Gran% 0.5 % 01/19/2025 10:56 AM EDT [facility] Comment:Automated count of m etamyelocytes, myelocytes and promyelocytes. Lymph Percent 13.9 % 01/19/2025 10:56 AM EDT [facility] [place] Percent 6.7 % 01/19/2025 10:56 AM EDT [facility] Eos Percent 2.6 % 01/19/2025 10:56 AM EDT [facility] Baso Percent 0.1 % 01/19/2025 10:56 AM EDT [facility] Neut # 6.7(H) 1.6 - 6.1 x10(3)/mcL 01/19/2025 10:56 AM EDT [facility] Comment:Neutrophils equals s egs plus bands IMMGRAN# 0.0 0.0 - 0.1 x10(3)/mcL 01/19/2025 10:56 AM EDT [facility] Comment:Automated count of m etamyelocytes, myelocytes and promyelocytes. An absolute IG <0.1 is reported as 0.0. Lymph # 1.2 1.2 - 3.9 x10(3)/mcL 01/19/2025 10:56 AM EDT [facility] [place] # 0.6 0.3 - 0.9 x10(3)/mcL 01/19/2025 10:56 AM EDT [facility] Eos# 0.2 0.0 - 0.5 x10(3)/mcL 01/19/2025 10:56 AM EDT [facility] Baso # 0.0 0.0 - 0.1 x10(3)/mcL 01/19/2025 10:56 AM EDT [facility] Blood VENOUS BLOOD / Unknown Venipuncture / Unknown 01/19/2025 10:48 AM EDT 01/19/2025 10:48 AM EDT Michelle Bull [employer] HEMATOLOGY ORDERABLES Final Result [facility] [address] [place] [address] documented in this encounter Visit Diagnoses Diagnosis Paroxysmal atrial fibrillation (HCC)- Primary Atrial fibrillation Status post ablation of atrial fibrillation Other postprocedural status Paroxysmal atrial fibrillation (HCC) [...] Given 01/19/2025 8:20 PM EDT 40 mg bupivacaine (MARCAINE/SENSORCAINE) 0.5 % (5 mg/mL) injection INTRAPROCEDURE, Starting on Sat01/19/25 at 1255, Until Sat01/19/25 at 1430, Intra-procedure(Cath) Given 01/19/2025 12:55 PM EDT 10 mL Right Groin cyclobenzaprine (FLEXERIL) tablet 5 mg 5 mg, [...] for orders. Waste Sort Code = BLACK ANRDEINARA Hazardous Waste Container, PACU Given 01/19/2025 2:49 [...] per patient) 0857 (Given - Provider: Raina Mcgovern, ENRICO) apixaban (ELIQUIS) tablet 5 mg 5 mg, Oral, 2 TIMES DAILY, First dose on Sat01/19/25 at 2100, Until Discontinued 2020 (Given - Provider: Ame Chavarria, ENRICO) 0857 (Given - Provider: Raina Mcgovern, ENRICO) atorvastatin (LIPITOR) tablet 40 mg 40 mg, Oral, NIGHTLY, First dose on Sat01/19/25 at 2100, Until Discontinued 2020 (Given - Provider: Ame Chavarria, ENRICO) desvenlafaxine succinate (PRISTIQ) 24 hr tablet 50 mg 50 mg, Oral, DAILY, First dose on Sat01/19/25 at 1545, Until Discontinued 154 (Not Given - Provider: Raina Mcgovern RN - Reason: Patient Declined - Comment: patient wants to restart home meds tomorrow) 0857 (Given - Provider: Raina Mcgovern, ENRICO) fUROsemide (LASix) tablet 40 mg 40 mg, Oral, DAILY, First dose on Sat01/19/25 at 1545, Until Discontinued 154 (Not Given - Provider: Raina Mcgovern RN - Reason: Patient Declined) 0857 (Given - Provider: Raina Mcgovern, RN) hydrALAZINE (APRESOLINE) tablet 100 mg 100 mg, Oral, 3 TIMES DAILY, First dose on Sat01/19/25 at 1630, Until Discontinued 1741 (Given - Provider: Raina Mcgovern RN)2346 (Given - Provider: Ame Chavarria, ENRICO) 0857 (Given - Provider: Raina Mcgovern RN) [...] crush or chew. 1741 (Given - Provider: Rania Mcgovern, RN) 0857 (Given - Provider: Raina [...] Chavarria RN) 0900 (Given - Provider: Raina Mcgovern, RN) PRN Medication Order 01/18/2025 01/19/2025 01/20/2025 [...] Raina Mcgovern RN)2204 (Given - Provider: Ame Chavarria RN) 0447 (Given - Provider: Ame Chavarria RN)0901 [...] mg/5 mL suspension 15 mL 1 01/19/2025 dextrose 50 % solution 25 [...] documented as of this encounter Care Teams Religious Leader Relationship Specialty Start Date End Date Carlos Dean MD PCP - General 11/08/09 documented as of this encounter
--- OUTSIDE RECORDS SUMMARY | 2025-01-19 11:18 | XMS_ITS | Encounter Summary ---
Author Organization [place] [address] Care Team Providers Care Human Resources Partner Name Role Phone Carlos Dean MD Primary Care Provider [phone] Reason for Visit * Auth/Cert/Inpt Specialty Diagnoses / Procedures Referred By Contac t Referred To Contact Diagnoses Paroxysmal atrial fibrillation (HCC) Paroxysmal atrial fibrillation (HCC) [I48.0] Procedures MD COMPRE EP EVAL ABLTJ ATR FIB PULM VEIN ISOLATION MD ICAR CATH ABLATION DISCRETE MECHANISM ARRHYTHMIA MD INTRACARDIAC ELECTROPHYSIOLOGIC 3D MAPPING MD INTRACARD ECHOCARD W/THER/DX IVNTJ INCL IMG S&I PAROXYSMAL ATRIAL FIBRILLATION ABLATION WITH 3D MAPPING Referral ID Status Reason Start Date Expiration Date Visits Re quested Visits Authorized [id number] 1 1 Encounter Details Date Type Department Care Team (Late st Contact Info) Description 01/19/2025 12:18 PM EDT Anesthesia Event EDG HAND EMBROIDERER [facility] [place] [address] Ekaterina Abraham MD [address] [place] [address] Gregory Leal, EXCELLENCE COACH [address] [place] [address] Anesthesia Record Procedure Summary Procedure Name Responsible Anesthesiologist Anesthesia Start Time Anesthesia Stop Time PAROXYSMAL ATRIAL FIBRILLATION ABLATION WITH 3D MAPPING Ekaterina Abraham MD 01/19/25 1218 01/19/25 1438 Events Date Time Event Comment 01/19/2025 1115 1218 AN Equip Check 1218 An Start 1224 An Start Data 1226 Immediate Pre Anesthetic Ass es 1226 An Induction 1228 Quick Note Unable to flush iv 1244 An Intubation 1245 Anesthesia Ready 1247 Quick Note bp cuff adusted , reference line was not over artery 1254 Time out 1255 Incision 1415 An Emergence 1419 An Extubation 1429 an stop data 1438 An Stop 1438 Handoff I completed my SBAR handoff to the receiving nurse which has included the followin. Identification of the patient, family, or patient surrogate 2. Identification of the responsible practitioner 3. Pertinent medical history 4. Surgical procedure and reason for procedure 5. Intraoperative anesthetic management 6. All current lines, drains and respiratory support. 7. Outstanding follow up orders (X-rays, consults etc) 8. Expectations/Plans for the early post-procedure period 9. Opportunity for questions and acknowledgement of understanding from the receiving PACU/ICU juice bar team member Meds Name Total midazolam (VERSED) injection 1 mg/mL 2 m g lidocaine injection 1% 50 mg fentaNYL 50 MCG/ML INJ 100 mcg propofol (DIPRIVAN) injection 200 mg ephedrine injection 5 mg phenylephrine 100 mcg/ml 10ml (syringe) 400 mcg dexamethasone (DECADRON) injection 4 mg/ mL 4 mg ondansetron (ZOFRAN) injection 4 mg /2 m L 4 mg phenylephrine (CONCHITA-SYNEPHRIN E) 10,000 mcg in sodium chloride 0.9 % 100 mL infusion 3,950 mcg heparin (porcine) injection 1,000 units/ mL 19,000 Units protamine injection 50 mg lactated ringers infusion 1,000 mL * Agents Name O2 N2O Air Et Sevoflurane Et Desflurane * Blood No blood administrations on file. Lines, Drains, and Airways Type Details Placement Removal Peripheral IV 01/19/25; 1035; 20; 1.16; Right; Antecubital; Gonzales hubbard VAT; 1; Ultrasound guided; 01/19/25; 1240; Leaking 01/19/25 1035 by Isidra Mclean RN 01/19/25 1240 by Doug Cuadra, RN Airway Device: ETT- Cuffed; Size: 7.5 mm; Placement Date: 01/19/25; Placement Time: 1244 (created via procedure documentation); Removal Date: 01/19/25; Removal Time: 1419 01/19/25 1244 by Mahamed Daniel CRNA 01/19/25 1419 by Mahamed Daniel CRNA Peripheral IV 01/19/25; 1250; 18; Accucath; Proximal, Right, Ventral; Forearm; CATHLEEN; 1; Ultrasound guided; 01/20/25; 1150; Discharged; Catheter intact, Dressing applied, No Complications 01/19/25 1250 by Doug Cuadra RN 01/20/25 1150 by Raina Mcgovern RN Venous Sheath 01/19/25; 1256; Righ t femoral vein; 8.5 fr (two additional 8fr sheaths added @ this time); Y 01/19/25 1256 by Doug Cuadra RN 01/20/25 1651 by Discharge Provider, Automatic documented in this encounter Social History Tobacco [...] Somewhat hard 01/20/2025 [facility] [place] of Occupat ional Health - Occupational Stress [...] money to get more. Never true 01/20/2025 [facility] Utilities Answer Date Recorded In the past 12 months has th e electric, gas, oil, or water company threatened to shut off services in your home? No 01/20/2025 [facility] IP Transportation Answer D ate Recorded In [...] Robert Carranza RN documented in this encounter Procedure Notes * Mahamed Daniel CRNA - 01/19/2025 12:46 PM EDTAssociated Order(s): Airway Intraop Airway Placement: Date/Time: 01/19/2025 12:44 PM Induction type: IV Mask size: Large adult Pre-Oxygenation: BMI guided pre-O2 Mask ventilation: Not attempted Technique: Video laryngoscope Laryngoscope blade: Wolf Blade size: 3 Grade view: I Airway type: ETT- cuffed Topical Anesthetic/Lubricant: Lidocaine 5% ointment Intubation assist devices: Stylet 14fr Airway location: Oral Device size: 7.5mm Secured at: 21 cm Secured by: Tape Measured from: Lips Placement verified: Auscultation, End tidal CO2 and Symmetric chest wall motion Condition: Atraumatic and Unchanged Insertion attempts: 1 Title: HERMELINDO Ventilation: BMV documented in this encounter OR Notes * Anesthesia Postprocedure Evaluation - Ekaterina Abraham MD - 01/19/2025 4:04 PM EDT Post-Anesthesia Evaluation Note Patient Name: Eliz Maldonado Patient Date: January 19, 2025 Post-Anesthesia Evaluation Patient Location: [facility] Post op vitals: stable Nausea controlled: yes Level of consciousness: awake, alert and oriented Post anesthesia pain: adequate analgesia Airway patency: patent Respiratory status: spontaneous ventilation Cardiovascular status: stable Hydration status: euvolemic Temperature: Normothermia Perioperative complications: NONE Vitals Value Taken Time BP 148/89 01/19/25 15:30 Resp 13 01/19/25 15:30 SpO2 97 % 01/19/25 15:30 Temp 36.5 ??C (97.7 ??F) 01/19/25 15:30 Pulse 84 01/19/25 15:30 * Anesthesia Preprocedure Evaluation - Ekaterina Abraham MD - 01/19/2025 11:13 AM EDT Pre-Anesthesia Evaluation Note Patient Name: Eliz Maldonado Sex: female Patient : 1975 Age: 49 y.o. Patient Date: January 19, 2025 Procedure(s): PAROXYSMAL ATRIAL FIBRILLATION ABLATION WITH 3D MAPPING Anesthesia Evaluation Previous anesthesia. History of anesthetic complications: Delayed emergence Airway Mallampati: I Neck ROM: full Dental - normal exam Pulmonary (+) COPD: Sleep apnea on CPAP Physical exam: Comments: Clear to auscultation Cardiovascular (+)Hypertension: well controlled Hyperlipidemia CHF: Arrhythmias: atrial fibrillation Physical exam: Rhythm: regular Rate: tachy Neuro/Psych (+) Headaches: migraine Psychiatric history: Depression Syncope Peripheral neuropathy GI/Hepatic/Renal (+)GERD/PUD: Chronic kidney disease: I Endo/Other (+)Obese: Super obesity (BMI 50 and above) Diabetes mellitus: type 2 and using insulin Diabetic complications: anticoagulation therapy (eliquis) DOUGH SCALER AND MIXER (+) Non childbearing due to: Hysterectomy Additional Pre-evaluation comments labs pending EKG 12/31/24 NSR Echo 10/01/22 ?? Left Ventricle: The left ventricular systolic function is hyperdynamic, with EF >70%. The diastolic function is normal. The left ventricular filling pressure is normal. ?? Right Ventricle: The right ventricle is grossly normal in size. The right ventricular systolic function is grossly normal. ?? No significant mitral, aortic or pulmonic stenosis or regurgitation ?? Pericardium: No pericardial effusion. ?? There is no recent study available for direct ceuq-ud-iwjt comparison. Opioids BMI Anesthesia Plan ASA 3 Last solid intake: The patient has not eaten within the last 8 hours. Last clear liquid intake: The patient has not had clear liquids within the last 2 hours. Anesthesia Plan: general Induction: intravenous Monitors: STD PONV Risk Score: 3. Score of 3 or more is High Risk for PONV, combination antiemetic prophylaxis isindicated. Informed consent Anesthetic plan and risks discussed with: patient and family. Chart Reviewed and patient examined documented in this encounter Miscellaneous Notes * PAT Pre Evaluation for Anesthesia - Gregory Leal APRN - 01/18/2025 10:22 AM EDT Pre-Anesthesia Evaluation Note Patient Name: Eliz Maldonado Sex: female Patient : 1975 Age: 49 y.o. Patient Date: January 18, 2025 Procedure(s): PAROXYSMAL ATRIAL FIBRILLATION ABLATION WITH 3D MAPPING Anesthesia Evaluation Previous anesthesia. History of anesthetic complications: Delayed emergence Airway Dental Pulmonary (+) COPD: Sleep apnea on CPAP Cardiovascular (+)Hypertension: well controlled Hyperlipidemia CHF: Arrhythmias: atrial fibrillation Neuro/Psych (+) neuromuscular disease Headaches: migraine Psychiatric history: Depression Syncope Peripheral neuropathy GI/Hepatic/Renal (+)GERD/PUD: Chronic kidney disease: I Endo/Other (+)Obese: Diabetes mellitus: type 2 and using insulin Diabetic complications: anticoagulation therapy (eliquis) DOUGH SCALER AND MIXER (+) Non childbearing due to: Hysterectomy Additional Pre-evaluation comments labs pending EKG 12/31/24 NSR Echo 10/01/22 ?? Left Ventricle: The left ventricular systolic function is hyperdynamic, with EF >70%. The diastolic function is normal. The left ventricular filling pressure is normal. ?? Right Ventricle: The right ventricle is grossly normal in size. The right ventricular systolic function is grossly normal. ?? No significant mitral, aortic or pulmonic stenosis or regurgitation ?? Pericardium: No pericardial effusion. ?? There is no recent study available for direct cykr-kw-qkup comparison. Opioids BMI Anesthesia Plan Anesthesia Plan: general PONV Risk Score: 3. Score of 3 or more is High Risk for PONV, combination antiemetic prophylaxis isindicated. Chart Reviewed documented in this encounter Plan of Treatment Upcoming Encounters Date Type Department Care Team (Late st Contact Info) Description 03/08/2025 2:00 PM EST Office Visit [facility] [address] [facility] [address] [place] [address] Michelle Bull, CURTIS [address] [place] [address] documented as of this encounter Procedures Procedure Name Priority Date/Time Associated Diagnosis Comments INTRAOP AIRWAY PLACEMENT Routine 01/19/2025 12:44 PM EDT documented in this encounter Results * INTRAOP AIRWAY PLACEMENT (01/19/2025 12:44 PM EDT) Narrative [facility] - 01/19/2025 12:44 PM EDT Mahamed Daniel CRNA 01/19/2025 1:00 PM Intraop Airway Placement: Date/Time: 01/19/2025 12:44 PM Induction type: IV Mask size: Large adult Pre-Oxygenation: BMI guided pre-O2 Mask ventilation: Not attempted Technique: Video laryngoscope Laryngoscope blade: Wolf Blade size: 3 Grade view: I Airway type: ETT- cuffed Topical Anesthetic/Lubricant: Lidocaine 5% ointment Intubation assist devices: Stylet 14fr Airway location: Oral Device size: 7.5mm Secured at: 21 cm Secured by: Tape Measured from: Lips Placement verified: Auscultation, End tidal CO2 and Symmetric chest wall motion Condition: Atraumatic and Unchanged Insertion attempts: 1 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: REINFORCING STEEL WORKER Ventilation: BMV us Ekaterina Abraham MD MD ANESTHESIA Edited Result - Final [facility] [address] [place] [address] documented in this encounter Visit Diagnoses Not on filedocumented in this encounter Administered Medications Inactive Administered Medications - up to 1 most recent administrations Medication Order MAR Action Action Date Dose Rate Site dexAMETHasone (DECADRON) injection Intravenous, PRN (Anesthesia), Starting on Sat01/19/25 at 1408, Until Sat01/19/25 at 1438, Anesthesia Intra-op Given 01/19/2025 2:08 PM EDT 4 mg ePHEDrine injection Intravenous, PRN (Anesthesia), Starting on Sat01/19/25 at 1314, Until Sat01/19/25 at 1438, Anesthesia Intra-op Given 01/19/2025 1:14 PM EDT 5 mg fentaNYL (SUBLIMAZE) injection Intravenous, PRN (Anesthesia), Starting on Sat01/19/25 at 1241, Until Sat01/19/25 at 1438, Anesthesia Intra-op Given 01/19/2025 12:41 PM EDT 100 mcg heparin (porcine) injection Intravenous, PRN (Anesthesia), Starting on Sat01/19/25 at 1311, Until Sat01/19/25 at 1438, Anesthesia Intra-op Given 01/19/2025 1:28 PM EDT 4,000 Units lidocaine 1% 10 mg/mL (1 %) injection Intravenous, PRN (Anesthesia), Starting on Sat01/19/25 at 1241, Until Sat01/19/25 at 1438, Anesthesia Intra-op Given 01/19/2025 12:41 PM EDT 50 mg midazolam (VERSED) injection Intravenous, PRN (Anesthesia), Starting on Sat01/19/25 at 1422, Until Sat01/19/25 at 1438, Anesthesia Intra-op Given 01/19/2025 2:22 PM EDT 2 mg ondansetron (ZOFRAN) injection Intravenous, PRN (Anesthesia), Starting on Sat01/19/25 at 1408, Until Sat01/19/25 at 1438, Anesthesia Intra-op Given 01/19/2025 2:08 PM EDT 4 mg phenylephrine (CONCHITA-SYNEPHRINE) 10,000 mcg in sodium chloride 0.9 % 100 mL infusion Intravenous, CONTINUOUS PRN, Starting on Sat01/19/25 at 1255, Until Sat01/19/25 at 1438, Anesthesia Intra-op Rate/Dose Change 01/19/2025 1:05 PM EDT 50 mcg/min 30 mL/hr phenylephrine injection Intravenous, PRN (Anesthesia), Starting on Sat01/19/25 at 1255, Until Sat01/19/25 at 1438, Anesthesia Intra-op Given 01/19/2025 1:17 PM EDT 200 mcg propofoL (DIPRIVAN) injection Intravenous, PRN (Anesthesia), Starting on Sat01/19/25 at 1241, Until Sat01/19/25 at 1438, Anesthesia Intra-op Given 01/19/2025 12:41 PM EDT 200 mg protamine injection Intravenous, PRN (Anesthesia), Starting on Sat01/19/25 at 1414, Until Sat01/19/25 at 1438, Anesthesia Intra-op Given 01/19/2025 2:14 PM EDT 50 mg documented in this encounter Care Teams Human Resources Partner Relationship Specialty Start Date End Date Carlos Dean MD PCP - General 11/08/09 documented as of this encounter
[2025-02-02 18:05] VITALS: BP 187/95; PULSE 96; RESP 18; TEMP 36.8; O2SAT 97; BMI 56.3
--- OUTSIDE RECORDS SUMMARY | 2025-02-02 18:22 | XMS_ITS | Encounter Summary ---
Author Organization [facility] [place] [address] Care Team Providers Care Front Desk Receptionist Name Role Phone Carlos Dean MD Primary Care Provider [phone] Encounter Details Date Type Department Care Team (Latest Contact Info) Description 01/19/2025 Travel Social History Tobacco Use Types Packs/Day Years [...] medical care, and heating? Somewhat hard 01/20/2025 [facility] [place] of Occupat ional Health - Occupational Stress [...] money to get more. Never true 01/20/2025 [facility] Utilities Answer Date Recorded In the past 12 months has th e electric, gas, oil, or water company threatened to shut off services in your home? No 01/20/2025 [facility] IP Transportation Answer D ate Recorded In [...] 04/05/2015 1:44 PM Robert Carranza RN * Suicide Severity Rating Answer Date of Assessment Author Low Risk 01/19/2025 4:05 PM EDT Rodrick Mcgovern RN * [place] Suicide Severity Rating Scale (Q shift for moderate and high) Question Answer Date of Assessment Author 1. In the past month, have y ou wished you were or wished you could go to sleep and not wake up? 1 01/19/2025 4:05 PM EDT Raina Mcgovern R N 2. In the past month, have y ou actually had any thoughts of killing yourself? (If no, skip to question 6) 0 01/19/2025 4:05 PM EDT Rodrick Mcgovern RN 6. Have you ever [...] Office Visit [facility] [address] [facility] [address] [place] [address] Michelle Bull, CURTIS [address] [place] [address] documented as of this encounter Visit Diagnoses Not on filedocumented in this encounter Care Teams Front Desk Receptionist Relationship Specialty Start Date End Date Carlos Dean MD PCP - General 11/08/09 documented as of this encounter
--- OUTSIDE RECORDS SUMMARY | 2025-02-02 18:22 | XMS_ITS | Clinical Summary ---
Author Organization [facility] Address [address] [place] [address] Care Team Providers Care Respiratory Assistant Name Role Phone Carlos Dean MD Primary Care Provider [phone] Allergies No known active allergies Medications hydrALAZINE [...] week. Active ergocalciferol (Vitamin D-2) 1.25 MG (31202 UT) capsule Take 50,000 Units by mouth [...] Administration Dates Next Due Moderna COVID-19 Vaccine (Service Station Console Operator) 12+ years ,07/20/2020 Family History Medical History [...] 2024 UKY-Zoster Vaccines (1 of 2) 2024 [id number] Vaccine (3 - season) 2024 08/17/2020, 07/20/2020 [...] to complete this topic Insurance Care Teams Respiratory Assistant Relationship Specialty Start Date End Date Carlos Dean MD PCP - General 08/05/20
--- OUTSIDE RECORDS SUMMARY | 2025-02-02 18:22 | XMS_ITS | Encounter Summary ---
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 Selvin Bain Encounter Details Date Type Department Care Team (Late st Contact Info) Description 12/28/2024 Telephone [facility] [address] [facility] [address] [place] [address] Clare Cardenas, Clerical Staff Appointment Needed (DEPUTY BUILDING GUARD appt ref by Dr. Selvin Bain) Social History Tobacco Use Types Packs/Day Years [...] Robert Carranza RN documented in this encounter Miscellaneous Notes * Telephone Encounter - Devin Galeano MA - 12/28/2024 1:52 PM EDT New patient ref by Dr. Selvin Bain to any provider for poss AF ablation Reached out to Eliz Maldonado to schedule a new patient appointment. Appointment scheduled on 12/31/24 Dr. Babak Feliciano username given to pt and [facility] * Telephone Encounter - Clare Cardenas, Clerical Staff - 12/28/2024 8:17 AM EDT Patient is being referred by Dr. Selvin Bain at [facility] for AF ablation. MR/REF scanned into media including rhythm strips. Please contact patient at [phone] Thank you documented in this encounter Plan of Treatment Upcoming Encounters Date Type Department Care Team (Late st Contact Info) Description 03/08/2025 2:00 PM EST Office Visit [facility] [address] [facility] [address] [place] [address] Michelle Bull APRN [address] [place] [address] documented as of this encounter Visit Diagnoses Not on filedocumented in this encounter Care Teams Canary Breeder Relationship Specialty Start Date End Date Carlos Dean MD PCP - General 11/08/09 documented as of this encounter
--- OUTSIDE RECORDS SUMMARY | 2025-02-02 18:22 | XMS_ITS | Clinical Summary ---
Author Organization [facility] Address [address] [place] [address] Care Team Providers Care Behavioral Health Aide Name Role Phone Carlos Dean MD Primary Care Provider [phone] Allergies No known active allergies Medications albuterol [...] times daily (with meals). Active folic acid/multivit,ir on,reexaminer (CENTRUM PO) Take by mouth. Ac tive [...] Influenza Vaccination (#1) 2024 Insurance Care Teams Behavioral Health Aide Relationship Specialty [place] [address] [place] [address] PCP - General Family Medicine 04/01/18
--- OUTSIDE RECORDS SUMMARY | 2025-02-02 18:23 | XMS_ITS | Encounter Summary ---
Author Organization [place] [address] Care Team Providers Care Die Maker Bench Stamping Name Role Phone Carlos Dean MD Primary Care Provider [phone] Encounter Details Date Type Department Care Team (Late st Contact Info) Description 01/04/2025 Orders Only [facility] [address] [facility] [address] [place] [address] Michelle Bull APRN [address] [place], [place] [id number] Paroxysmal atrial fibrillation (HCC) (Primary Dx) Social History Tobacco Use [...] Office Visit [facility] [address] [facility] [address] [place] [address] Michelle Bull, REGISTERED NURSE MIDWIFE [address] [place] [address] documented as of this encounter Visit Diagnoses Diagnosis Paroxysmal atrial fibrillation (HCC)- Primary Atrial fibrillation documented in this encounter Care Teams Die Maker Bench Stamping Relationship Specialty Start Date End Date Carlos Dean MD PCP - General 11/08/09 documented as of this encounter
--- OUTSIDE RECORDS SUMMARY | 2025-02-02 18:23 | XMS_ITS | Encounter Summary ---
Author Organization [place] [address] Care Team Providers Care Crotch Piece Baster Name Role Phone Carlos Dean MD Primary Care Provider [phone] Reason for Visit * Reason Onset Date Comments Procedure 01/04/2025 Pre Procedure In structions Encounter Details Date Type Department Care Team (Late st Contact Info) Description 01/04/2025 Telephone [facility] [address] [facility] [address] [place] [address] Mahamed Hilliard MD [address] [place] [id number] Procedure (Pre Procedure Instructions) Social History Tobacco Use Types Packs/Day Years [...] encounter Miscellaneous Notes * Telephone Encounter - Gumaro Freire MA - 01/04/2025 11:15 AM EDT Pre Procedure Instructions relayed at [facility] as well as sent via [facility]. documented in this encounter Plan of Treatment Upcoming Encounters Date Type Department Care Team (Late st Contact Info) Description 03/08/2025 2:00 PM EST Office Visit [facility] [address] [facility] [address] [place] [address] Michelle Bull APRN [address] [place] [address] documented as of this encounter Visit Diagnoses Diagnosis Paroxysmal atrial fibrillation (HCC)- Primary Atrial fibrillation documented in this encounter Orders Procedures Count Last Ordered Date First Orde red Date SURGICAL/PROCEDURE CASE REQUEST 1 5 documented in this encounter Care Teams Crotch Piece Baster Relationship Specialty Start Date End Date Carlos Dean MD PCP - General 11/08/09 documented as of this encounter
--- OUTSIDE RECORDS SUMMARY | 2025-02-02 18:23 | XMS_ITS | Data Portability ---
Author Organization [place] [facility] Address [address] [place] [address] Care Team Providers Care Corporate Administrator Name Role Phone TORIBIOCARLOS Quinn Primary Care Provider [phone] Assessment Encounter Date Assessment Date Assessment LastModified by Organization Details LastModified Time 12/26/2021 12/26/2021 trivial coronary disease. She was in the hospital for atrial fibrillation. Subsequently she has been in normal sinus rhythm. Echocardiogram from September showed normal function at 65-70%. She had trivial coronary artery disease from cardiac catheterization in August. She had a CT scan of the chest which showed some nodularity but there was no evidence for pulmonary embolus. I called the pharmacy today to find out exactly what medications she is taking. Seems like she is taking amlodipine and benazepril and a combination pill and has been on Coreg but not metoprolol. Blood pressure and heart rate are still elevated. I am going to stop the combo pill and start diltiazem CD 100 80 mg twice daily. I am also going to start lisinopril 20 mg twice daily. She will follow up for a blood pressure check in 6-8 weeks. Continue Eliquis at current dose which is 5 mg twice daily. Meds andchart reviewed in full today Continue current medications Risk factor modification Recommend LDL cholesterol of less than 100 in this patient with diabetesAnd trivial coronary disease Cholesterol management as per primary care Stop amlodipine and benazepril combination Diltiazem CD 100 80 mg twice daily Lisinopril 20 mg twice daily Encourage weight loss Follow-up in Cardiology Clinic in 7-8 weeks for blood pressure check trina Not available 12/26/2021 10:57:42 Plan of Treatment Reminders Order Date Submit Date Provider Last Modified By Organization Details Last Modified Time Details Appointments None recorded. Lab CMP, serum or plasma 2022 023 [email or web address] 1 Idris (Centralized Scheduling), [address], [place], [address], 3 07:47:53 magnesium, serum or plasma 2022 023 [email or web address] 1 Idris (Centralized Scheduling), [address], [place], [address], 3 07:48:00 CBC 2022 023 [email or web address] 1 Idris (Centralized Scheduling), [address], [place], [address], 3 07:13:41 CMP, serum or plasma 2022 023 ADRIAN Steinberg (Centralized Scheduling), [address], [place], [address], 3 17:19:43 BNP (B-type natriuretic peptide), blood 2022 023 [email or web address] 1 Idris (Centralized Scheduling), [address], [place], [address], 3 07:13:48 lipid panel, serum 2022 023 ADRIAN Steinberg (Centralized Scheduling), [address], [place], [address], 3 17:19:44 magnesium, serum or plasma 2022 023 ADRIAN Steinberg (Centralized Scheduling), [address], [place], [address], 3 17:19:46 lithium, serum 2022 023 ADRIAN Steinberg (Centralized Scheduling), [place], [address], 3 17:36:42 Referral None recorded. Procedures None recorded. Surgeries combined right and left heart catheteriza tion (SURG) 2022 023 [email or web address] 1 Not available 16:19:08 Imaging electrocard iogram 2022 023 [email or web address] [facility], [address] [place] [address] [address], [place], [address], 3 07:32:49 US, echocardiog elsa, transthorac ic, complete, w/ color flow 2022 023 1 Thomas (Centralized Scheduling), [address] [place] [address] , [place], [address], 3 08:24:45 electrocard iogram 2022 023 [email or web address] [facility], [address] [place] [address] [address], [place], [address], 3 15:47:01 Medication Orders Aldactone 50 mg tablet 2022 023 [email or web address] [facility], [address] [place] [address], [address], 3 10:18:40 Patient TargetsNo targets recorded. Patient Instructions Encounter Date Encounter Id Patient Instructions Last Modified By Organization Details Last Modified Time 07/03/2022 [id number] -patient with complaint of shortness of breath, dyspnea, worsening lower extremity edema and chest pain. -Vital signs stable although blood pressure mildly elevated, heart rate under good control. -medications chart and records reviewed. -EKG today shows sinus rhythm with a rate of 95 with poor R-wave progression and diffuse T-wave abnormalities. This an abnormal EKG. - it has been about a year since her last echocardiogram which showed an ejection fraction of 65-70%. She now has a new cardiac systolic murmur. Recheck echocardiogram - it has been several years since her last cardiac catheterization at which time she had mild coronary artery disease - she now has an abnormal EKG, symptoms of class 3 to class 4 angina, and diastolic heart failure. She has failed maximal medical therapy and has a history of coronary artery disease. Will schedule her for left and right heart catheterization. -check full labs - -Continue aspirin -Recommend LDL cholesterol less than 70 -Increase exercise/Maintain healthy weight -Tobacco avoidance discussed - class 3 to class 4 angina -diastolic congestive heart failure -maximal medical therapy - not candidate for stress testing secondary to gait instability underlying lung disease and debility -pending lipid profile -typical angina -worsening angina -known coronary artery disease -cardiac murmur Not available 07/03/2022 16:05:16 07/19/2022 [id number] - Here for follow-up after cardiac catheterization. She still complains of shortness of breath and lower extremity edema. -Vital signs stable although blood pressure mildly elevated, heart rate under good control. -medications chart and records reviewed. - June 2022 echocardiogram showed an ejection fraction of 70-75% consistent with hypertensive heart disease. Valves were normal. - Cardiac catheterization July 12, 2022 showed mild diffuse coronary artery disease. Her LVEDP was 17. she had pulmonary hypertension. - Labs reviewed and were unremarkable except for a glucose of 454. - -Continue aspirin -Recommend LDL cholesterol less than 70 -Increase exercise/Maintain healthy weight -Tobacco avoidance discussed - add Aldactone 50 mg bid for hypertensive heart disease, pulmonary hypertension, elevated LVEDP - basic metabolic panel in 1 week -discontinue potassium Follow-up in 2 weeks Not available 07/20/2022 10:22:52 Reason for Referral None Reported. Results Created Date Observation Date Name Description Value Unit Range Abnormal Flag Note LastModifiedBy Organization Detail LastModifiedTime 07/04/1907/03/2022 B-TYP E NATRI URETI C PEPTI DE note SEE NOTE Order ing Provi lela: Bret nicole SCHOOL SPEECH THERAPIST Not Available [address] , [place], [address], 07/03/2022 17:19:42 07/04/1907/03/2022 B-TYP E NATRI URETI C PEPTI DE B-type natriuretic peptide 23 pg/mL 0-100 normal Resul ts will be false ly eleva tejinder if patie nt is recei ving treat ment with NATRE COR (Nesi ritid e), a recom binan t form of human BNP. Not Available [address] , [place], [address], 07/03/2022 17:19:42 07/04/19 23 07/03/2022 B-TYP E NATRI URETI C PEPTI DE performing lab SEE NOTE ML - [facility] R [address] [facility] [address] Not Available [address] , [place], [address], 07/03/2022 17:19:42 07/04/19 23 07/03/2022 COMP METAB OLIC PANEL note SEE NOTE Order ing Provi lela: Bret Liriano ng SCHOOL SPEECH THERAPIST Not Available [address] , [place], [address], 07/03/2022 17:19:43 07/04/19 23 07/03/2022 COMP METAB OLIC PANEL sodium 135 mmol/ L 136-14 5 low Not Available [address] [place], [place], [address], 07/03/2022 17:19:43 07/04/19 23 07/03/2022 COMP METAB OLIC PANEL potassium 3.6 mmol/ L 3.5-5. 1 normal Not Available [address] , [place], [address], 07/03/2022 17:19:43 07/04/19 23 07/03/2022 COMP METAB OLIC PANEL chloride 95 mmol/ L 98-107 low Not Available [address] , [place], [address], 07/03/2022 17:19:43 07/04/19 23 07/03/2022 COMP METAB OLIC PANEL carbon dioxide 31 mmol/ L 24-33 normal Not Available [address] [place], [place], [address], 07/03/2022 17:19:43 07/04/19 23 07/03/2022 COMP METAB OLIC PANEL anion gap 12.6 mmol/ L 10-20 normal Not Available [address] [place], [place], [address], 07/03/2022 17:19:43 07/04/19 23 07/03/2022 COMP METAB OLIC PANEL glucose 273 mg/dL 70-99 high Not Available [address] [place], [place], [address], 07/03/2022 17:19:43 07/04/19 23 07/03/2022 COMP METAB OLIC PANEL blood urea nitrogen 17 mg/dL 7-18 normal Not Available [address] [place], [place], [address], 07/03/2022 17:19:43 07/04/19 23 07/03/2022 COMP METAB OLIC PANEL creatinine 1.25 mg/dL 0.55-1 .02 high Not Available [address] [place], [place], [address], 07/03/2022 17:19:43 07/04/19 23 07/03/2022 COMP METAB OLIC PANEL BUN/creatini ne ratio 13 12-20 normal Not Available [address] [place], [place], [address], 07/03/2022 17:19:43 07/04/19 23 07/03/2022 COMP METAB OLIC PANEL total protein 7.3 g/dL 6.4-8. 2 normal Not Available [address] [place], [address], 07/03/2022 17:19:43 07/04/19 23 07/03/2022 COMP METAB OLIC PANEL albumin 3.1 g/dL 3.4-5. 0 low Not Available [address] , [place], [address], 07/03/2022 17:19:43 07/04/19 23 07/03/2022 COMP METAB OLIC PANEL globulin 4.2 g/dL 1.5-4. 0 high Not Available [address] , [place], [address], 07/03/2022 17:19:43 07/04/19 23 07/03/2022 COMP METAB OLIC PANEL albumin/glob ulin ratio 0.7 0.5-2. 0 normal Not Available [address] , [place], [address], 07/03/2022 17:19:43 07/04/19 23 07/03/2022 COMP METAB OLIC PANEL calcium 9.0 mg/dL 8.5-10 .1 normal Not Available [address] , [place], [address], 07/03/2022 17:19:43 07/04/19 23 07/03/2022 COMP METAB OLIC PANEL osmolality serum calculated 281 mOsm/ kg 272-28 8 normal Not Available [address] [place], [address], 07/03/2022 17:19:43 07/04/19 23 07/03/2022 COMP METAB OLIC PANEL glom filtr rate (estimated) 46 mL/mi n >60 low Not Available [address] , [place], [address], 07/03/2022 17:19:43 07/04/19 23 07/03/2022 COMP METAB OLIC PANEL GFR est (if -amer ican) 55 mL/mi n >60 low Not Available [address] , [place], [address], 07/03/2022 17:19:43 07/04/19 23 07/03/2022 COMP METAB OLIC PANEL bilirubin total 0.6 mg/dL 0.2-1. 0 normal Use of this assay is not recom hiwot d for patie nts under going treat ment with Eltro mbopa g due to the poten tial for false ly eleva tejinder resul ts. Not Available [address] , [place], [address], 07/03/2022 17:19:43 07/04/19 23 07/03/2022 COMP METAB OLIC PANEL SGOT/AST 25 U/L 15-37 normal Not Available [address] , [place], [address], 07/03/2022 17:19:43 07/04/19 23 07/03/2022 COMP METAB OLIC PANEL SGPT/ALT 28 U/L 14-59 normal Not Available [address] , [place], [address], 07/03/2022 17:19:43 07/04/19 23 07/03/2022 COMP METAB OLIC PANEL alkaline phosphatase total 88 U/L 46-116 normal Not Available [address] [place], [address], 07/03/2022 17:19:43 07/04/19 23 07/03/2022 COMP METAB OLIC PANEL performing lab SEE NOTE - [facility] [address] [facility] [address] Not Available [address] [place], [address], 07/03/2022 17:19:43 07/04/19 23 07/03/2022 LIPID PANEL note SEE NOTE Order ing Provi lela: Bret Liriano ng SCHOOL SPEECH THERAPIST Not Available [address] , [place], [address], 07/03/2022 17:19:44 07/04/19 23 07/03/2022 LIPID PANEL triglyceride s 174 mg/dL < 150 high Natio nal Nancie stero l Educa tion Progr am (NCEP ) Guide lines : Becky l < 150 mg/dL Borde rline 150 - 199 mg/dL High 200 - 499 mg/dL Very High >or= 500 mg/dL Not Available [address] [place], [address], 07/03/2022 17:19:44 07/04/19 23 07/03/2022 LIPID PANEL cholesterol 136 mg/dL < 200 normal Natio nal Nancie stero l Educa tion Progr am (NCEP ) Guide lines : Luna able < 200 mg/dL Borde rline Risk 200 - 239 mg/dL High Risk >or= 240 mg/dL Not Available [address] [place], [address], 07/03/2022 17:19:44 07/04/1907/03/2022 LIPID PANEL HDL cholesterol 54 mg/dL > 60 low Natio nal Nancie stero l Educa tion Progr am Adult Treat ment Panel III (NCEP -ATP III) Guide lines : < 40 mg/dl : Low HDL-C holes terol >or= 60 mg/dl : High HDL-C holes terol Not Available [address] [place], [address], 07/03/2022 17:19:44 07/04/1907/03/2022 LIPID PANEL LDL cholesterol 47 mg/dL < 100 normal Natio nal Nancie stero l Educa tion Progr am (NCEP ) Guide lines : Optim al < 100 mg/dL Near/ Above Optim al 100 - 129 mg/dL Borde rline High 130 - 159 mg/dL High 160 - 189 mg/dL Very High >or= 190 mg/dL Not Available [address] , [place], [address], 07/03/2022 17:19:44 07/04/19 23 07/03/2022 LIPID PANEL performing lab SEE NOTE ML - [facility] [address] [facility] [address] Not Available [address] , [place], [address], 07/03/2022 17:19:44 07/04/19 23 07/03/2022 MAGNE SIUM note SEE NOTE Order ing Provi lela: Bret nicole SCHOOL SPEECH THERAPIST Not Available [address] , [place], [address], 07/03/2022 17:19:45 07/04/19 23 07/03/2022 MAGNE SIUM magnesium 1.7 mg/dL 1.8-2. 4 low Not Available [address] , [place], [address], 07/03/2022 17:19:45 07/04/19 23 07/03/2022 MAGNE SIUM performing lab SEE NOTE ML [facility] [address] [facility] [address] Not Available [address] [place], [place], [address], 07/03/2022 17:19:45 07/04/19 23 07/03/2022 CBC W/AUT O DIFFE RENTI AL note SEE NOTE Order ing Provi lela: Bret nicole SCHOOL SPEECH THERAPIST Not Available [address] , [place], [address], 07/03/2022 17:35:34 07/04/19 23 07/03/2022 CBC W/AUT O DIFFE RENTI AL white blood cell 11.6 10e3/ uL 4.5-13 .0 normal Not Available [address] , [place], [address], 07/03/2022 17:35:34 07/04/19 23 07/03/2022 CBC W/AUT O DIFFE RENTI AL red blood cell 3.93 10e6/ uL 3.80-5 .10 normal Not Available [address] , [place], [address], 07/03/2022 17:35:34 07/04/19 23 07/03/2022 CBC W/AUT O DIFFE RENTI AL hemoglobin 10.8 g/dL 11.5-1 5.3 low Not Available [address] , [place], [address], 07/03/2022 17:35:34 07/04/19 23 07/03/2022 CBC W/AUT O DIFFE RENTI AL hematocrit 33.3 % 34.0-4 6.0 low Not Available [address] , [place], [address], 07/03/2022 17:35:34 07/04/19 23 07/03/2022 CBC W/AUT O DIFFE RENTI AL mean cell volume 85 fL 78.0-9 8.0 normal Not Available [address] [place], [place], [address], 07/03/2022 17:35:34 07/04/19 23 07/03/2022 CBC W/AUT O DIFFE RENTI AL mean cell HGB 27.5 pg 25.0-3 5.0 normal Not Available [address] , [place], [address], 07/03/2022 17:35:34 07/04/19 23 07/03/2022 CBC W/AUT O DIFFE RENTI AL mean cell HGB concentratio n 32.4 g/dL 31.0-3 6.0 normal Not Available [address] , [place], [address], 07/03/2022 17:35:34 07/04/19 23 07/03/2022 CBC W/AUT O DIFFE RENTI AL red cell distribution width 14.6 % 11.0-1 5.0 normal Not Available [address] [place], [place], [address], 07/03/2022 17:35:34 07/04/19 23 07/03/2022 CBC W/AUT O DIFFE RENTI AL platelet count 280 10e3/ uL 150-40 0 normal Not Available [address] , [place], [address], 07/03/2022 17:35:34 07/04/19 23 07/03/2022 CBC W/AUT O DIFFE RENTI AL immature granulocyte % 1 0-1 normal Not Available [address] [place], [place], [address], 07/03/2022 17:35:34 07/04/19 23 07/03/2022 CBC W/AUT O DIFFE RENTI AL neutrophil % 77 % 35-75 high Not Available [address] [place], [place], [address], 07/03/2022 17:35:34 07/04/19 23 07/03/2022 CBC W/AUT O DIFFE RENTI AL lymphocyte % 11 % 10-50 normal Not Available [address] [place], [place], [address], 07/03/2022 17:35:34 07/04/19 23 07/03/2022 CBC W/AUT O DIFFE RENTI AL monocyte % 7 % 0-15 normal Not Available [address] [place], [place], [address], 07/03/2022 17:35:34 07/04/19 23 07/03/2022 CBC W/AUT O DIFFE RENTI AL eosinophil % 5 % 0-5 normal Not Available [address] , [place], [address], 07/03/2022 17:35:34 07/04/19 23 07/03/2022 CBC W/AUT O DIFFE RENTI AL basophil % 0 % 0-5 normal Not Available [address] [place], [place], [address], 07/03/2022 17:35:34 07/04/19 23 07/03/2022 CBC W/AUT O DIFFE RENTI AL immature granulocyte # 0.07 x1000 /uL 0-0.05 high Not Available [address] [place], [place], [address], 07/03/2022 17:35:34 07/04/19 23 07/03/2022 CBC W/AUT O DIFFE RENTI AL neutrophil # 8.91 x1000 /uL 1.50-8 .00 high Not Available [address] [place], [place], [address], 07/03/2022 17:35:34 07/04/19 23 07/03/2022 CBC W/AUT O DIFFE RENTI AL lymphocyte # 1.23 x1000 /uL 1.20-5 .20 normal Not Available [address] [place], [place], [address], 07/03/2022 17:35:34 07/04/19 23 07/03/2022 CBC W/AUT O DIFFE RENTI AL monocyte # 0.78 x1000 /uL 0.40-0 .90 normal Not Available [address] [place], [place], [address], 07/03/2022 17:35:34 07/04/19 23 07/03/2022 CBC W/AUT O DIFFE RENTI AL eosinophil # 0.56 x1000 /uL 0.00-0 .50 high Not Available [address] , [place], [address], 07/03/2022 17:35:34 07/04/19 23 07/03/2022 CBC W/AUT O DIFFE RENTI AL basophil # 0.05 x1000 /uL 0.00-0 .30 normal Not Available [address] , [place], [address], 07/03/2022 17:35:34 07/04/19 23 07/03/2022 CBC W/AUT O DIFFE RENTI AL NRBC automated 0.0 /100_ WBC Not Available [address] , [place], [address], 07/03/2022 17:35:34 07/04/19 23 07/03/2022 CBC W/AUT O DIFFE RENTI AL performing lab SEE NOTE - [facility] [address] [facility] [address] [facility] [address] Not Available [address] , [place], [address], 07/03/2022 17:35:34 07/04/19 23 07/03/2022 LITHI UM note SEE NOTE Order ing Provi lela: Bret nicole SCHOOL SPEECH THERAPIST Not Available [address] , [place], [address], 07/03/2022 17:36:42 07/04/19 23 07/03/2022 LITHI UM lithium <0.20 mmol/ L 0.6-1. 2 low Effec tive treat ment for some patie nts may be outsi de the 0.6-1 .2 mmol/ L thera peuti c range . Sunni ntrat ions of 1.2-1 .5 mmol/ L signi fy a warni ng range with value s >1.5 mmol/ L in a speci men drawn 12 hours post dose indic ating a signi fican t risk of intox icati on. Level s >2.0 mmol/ L are often assoc iated with toxic sympt oms. Not Available [address] , [place], [address], 07/03/2022 17:36:42 07/04/19 23 07/03/2022 LITHI UM performing lab SEE NOTE - [facility] R [address] [address] Not Available [address] , [place], [address], 07/03/2022 17:36:42 07/13/19 23 07/12/2022 GLUCO SE POINT OF CARE note SEE NOTE Order ing Provi lela: Casper shah MD Not Available [address] , [place], [address], 07/12/2022 12:43:01 07/13/19 23 07/12/2022 GLUCO SE POINT OF CARE glucose point of care 454 mg/dL 70-99 high Not Available [address] , [place], [address], 07/12/2022 12:43:01 07/13/19 23 07/12/2022 GLUCO SE POINT OF CARE performing lab SEE NOTE [facility] - [facility] [place] [address] Not Available [address] , [place], [address], 07/12/2022 12:43:01 07/04/19 elect rocar diogr am No observ ation record ed. ADRIAN Mv [address], [place], [address], 07/03/2022 15:24:03 07/04/19 23 07/03/2022 elect rocar diogr am No observ ation record ed. [email or web address] Not Available 2022 15:56:06 07/20/19 elect rocar diogr am inter preta tion* No observ ation record ed. [email or web address] Not Available 2022 10:18:38 07/20/19 elect rocar diogr am No observ ation record ed. ADRIAN Mv [place] [address], [place], [address], 07/19/2022 17:02:01 08/02/19 23 08/01/2022 - ECHO w/spe c/col or flow [place] [facility] [employer] [address] Phys: Yanni BREWER, [place] [address] : 1975 Age: 47 Sex: F Acct: [id number] Loc: ANTONIA PHONE #: Exam Date: 2022 Status : DEP CLI FAX #: Rad# [id number] Unit# [id number] Admit Date: 2022 EXAMS: CPT CODE: [id number] ECHO W/SPEC /COLOR FLOW [id number] Reason for study: Dyspne a/abno rmal EKG Left ventri cular diasto le: 5.0 Left ventri cular systol e: 2.7 Septal wall thickn ess: 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 Normal left ventri cular chambe r size with hyperd ynamic left ventri cular systol ic functi on. Estima tejinder ejecti on fracti on is 70-75% . There is mild to modera te concen tric hypert rophy of the left ventri adela 2. No segmen kelsey wall motion abnorm alitie s 3. Mild to modera te left atrial enlarg ement, with normal right atrial size 4. Normal right ventri cular size and functi on 5. Normal mitral valve, with no mitral insuff icienc y 6. Normal aortic valve with no aortic insuff icienc y 7. No perica rdial effusi on 8. Normal aortic root 9. Normal tricus pid valve with tricus pid regurg itant jet veloci ty less than 2.0 m/s implyi ng normal right ventri cular systol ic pressu re Dyspne a/abno rmal EKG Electr onical ly Signed by CASPER LIAO MD on 2022 at 1345 Report ed and signed by: CASPER LIAO MD PAGE 1 Signed Report (MARIANN NUED) [facility] Medica l Name: JINNY DANIELS [employer] Phys: Yanni BREWER, Casper [place] [place] [address] : 1975 Age: 47 Sex: F Acct: [id number] Loc: ANTONIA PHONE #: Exam Date: 2022 Status : DEP CLI FAX #: Rad# [id number] Unit# [id number] Admit Date: 2022 EXAMS: CPT CODE: [id number] ECHO W/SPEC /COLOR FLOW [id number] CC: Bret agee APRN; Casper Liao MD; Carlos Dean MD Dictat ed Date/T елена: 2022 (1345) Techno logist : TANYA SANDERSON Transc ribed Date/T елена: 2022 (1345) Transc riptio nist: DR.LOH RODOLFO Pal onic Signat ure Date/T елена: 2022 (1345) Printe d Date/T елена: 2022 (1405) BATCH NO: N/A PAGE 2 Signed Report CC'ed Logic: Orderi ng Provid er: YANNI SHIRLEY Attend ing Provid er: WIL RUST Referr ing Provid er: WIL RUST Consul ting Provid er: LISA CHENG [email or web address] [facility] [address] [facility], [place], [address], 08/01/2022 14:35:11 Result Notes None recorded. Problems Name Problem SNOMED Code Status Onset Date Resolution Date Notes Provider Name and Address Organization Details Recorded Time Palpitations 09699177 Active 2021 Casper Liao MD [facility] [employer] [facility],[address], [place], [address], [place] [facility] & [place] 2 10:52:33 Dyspnea on exertion 45667984 Active 2021 Casper Liao MD [facility] [employer] [facility], [address], [place] [facility] & [place] 2 10:52:37 Atrial fibrillation 64960234 Active 2021 Casepr Liao MD [facility] [employer] [facility],[address], [place], [address], [place] [facility] & [place] 2 10:52:42 Obesity 915668562 Active 2021 Casper Liao MD [facility] [employer] [facility],[address], [place], [address], [place] [facility] & [place] 2 10:52:46 Diastolic dysfunction 9262665 Active 2021 Casper Liao MD [facility] [employer] [facility],[address], [place], [address], [place] [facility] & [place] 2 10:52:52 Coronary arterioscleros is 67753273 Active 2021 Casper Liao MD [facility] [employer] [facility],[address], [place], [address], [place] [facility] & [place] 2 10:52:57 Angina pectoris 351020266 Active 2022 Bret Maki NP [facility] [employer] [facility],[address], [place], [address], [place] [facility] - [place] & [place] 3 15:45:07 Electrocardiog elsa abnormal 723921821 Active 2022 Bret Maki NP [facility] [employer] [facility],[address], [place], [address], [place] [facility] - [place] & [place] 3 15:45:14 Congestive heart failure 21540496 Active 2022 Bret Maki NP [facility],[address], [place], [address], [place] [facility] & [place] 3 15:45:18 Systolic murmur 22716707 Active 2022 Bret Maki NP [facility] [employer] [facility],[address], [place], [address], [place] [facility] & [place] 3 15:45:23 Essential hypertension 28317721 Active 2022 Bret Maki NP [facility] [employer] [facility],[address], [place], [address], [place] [facility] & [place] 3 15:58:03 Pulmonary hypertension 35109186 Active 2022 Bret Maki NP [facility] [employer] [facility],[address], [place], [address], [place] [facility] & [place] 3 10:20:10 Hypertensive heart disease 53035984 Active 2022 Bret Maki NP [facility] [employer] [facility],[address], [place], [address], [place] [facility] & [place] 3 10:20:15 Coronary atherosclerosi s 903641143 Active 2022 Bret Maki NP [facility] [employer] [facility],[address], [place], [address], [facility] - NT [facility] & [place] 3 10:20:46 Problem Notes None recorded. Procedures Surgical History Date Name Laterality Status Provider Name and Address Organization Details Recorded Time 023 COMBINED RIGHT AND LEFT HEART CATHETERIZATION (SURG) completed Bret Maki NP [address] [facility],[address], [place], [address], [facility] & [place] 07/20/2022 10:18:40 993 Abdominal Surgery completed Keri Junior [facility] & [place] 12/26/2021 10:28:21 Imaging Results None recorded. Procedure Notes None recorded. Medical Equipment None Reported. Allergies No known drug allergies Medications Name Sig Start Date Stop Date Status Note LastModified by Organization Details LastModified Time glmp (rr) cream 07/03 completed Not Available Not Available Not Available carvedilo l 25 mg tablet Take 1 tablet twice a day by oral route. active Not Available Not Available No t Available acetamino phen 325 mg tablet 07/03 completed Not Available Not Available Not Available atorvasta tin 20 mg tablet Take 1 tablet every day by oral route. active Not Available Not Available No t Available carvedilo l 12.5 mg tablet 07/03 completed Not Available Not Available Not Available torsemide 20 mg tablet Take 1 tablet every day by oral route. active Not Available Not Available No t Available triamcino lone acetonide 0.5 % topical cream 07/19 completed Not Available Not Available Not Available diltiazem CD 180 mg capsule,e xtended release 24 hr Take 1 capsule twice a day by oral route. 07/03 completed Not Available Not Available Not Available fluconazo le 150 mg tablet 07/03 completed Not Available Not Available Not Available hydrocodo ne 5 mg-acetam inophen 325 mg tablet 07/03 completed Not Available Not Available Not Available lisinopri l 20 mg tablet Take 1 tablet twice a day by oral route. 07/03 completed SW/ VERBAL BY ERL TO [facility]. Not Available Not Available Not Available isosorbid e mononitra te ER 30 mg tablet,ex tended release 24 hr Take 1 tablet every day by oral route. active Not Available Not Available No t Available gabapenti n 400 mg capsule 07/03 completed Not Available Not Available Not Available penicilli n V potassium 500 mg tablet 07/03 completed Not Available Not Available Not Available diltiazem ER 360 mg capsule,2 4 hr,extend ed release Take 1 capsule every day by oral route. 07/03 completed SW Not Available Not Available Not Available acetamino phen 300 mg-codein e 30 mg tablet 07/03 completed Not Available Not Available Not Available sulfameth oxazole 800 mg-trimet hoprim 160 mg tablet active Not Available Not Available Not Available triamcino lone acetonide 0.1 % topical cream 07/19 completed Not Available Not Available Not Available lidocaine -prilocai ne 2.5 %-2.5 % topical cream 07/19 completed Not Available Not Available Not Available bisoprolo l fumarate 10 mg tablet 07/03 completed Not Available Not Available Not Available Aldactone 50 mg tablet Take 1 tablet twice a day by oral route. 2022 active Not Available Not Available Not Avai lable Mobic 15 mg tablet Take 1 tablet every day by oral route. 12/26 completed SW Not Available Not Available Not Available Sure Comfort Insulin Syringe 1 mL 28 gauge x 03/26 completed Not Available Not Available Not Available Aldactone 25 mg tablet Take 1 tablet every day by oral route. 07/03 completed SW Not Available Not Available Not Available trazodone 100 mg tablet Take 1 tablet twice a day by oral route. 12/26 completed SW Not Available Not Available Not Available lithium carbonate 300 mg capsule 07/19 completed Not Available Not Available Not Available insulin aspart U-100 100 unit/mL subcutane ous solution 07/03 completed Not Available Not Available Not Available hydrocodo ne 7.5 mg-acetam inophen 325 mg tablet Take 1 tablet every 6 hours by oral route. 07/03 completed SW Not Available Not Available Not Available cephalexi n 500 mg capsule active Not Available Not Available Not Available ranitidin e 300 mg capsule Take 1 capsule every day by oral route. 12/26 completed SW Not Available Not Available Not Available metoprolo l tartrate 50 mg tablet 07/03 completed Not Available Not Available Not Available nitroglyc emiliano 0.4 mg sublingua l tablet Place by sublingu al route as directed . active SW Not Available Not Available No t Available mupirocin calcium 2 % topical cream 07/19 completed Not Available Not Available Not Available aspirin 81 mg chewable tablet Chew 1 tablet every day by oral route as directed for 100 days. active Not Available Not Available No t Available mupirocin 2 % topical ointment active Not Available Not Available Not Available alprazola m 2 mg tablet 07/03 completed Not Available Not Available Not Available insulin lispro (U-100) 100 unit/mL subcutane ous solution Inject 1 sliding scale dose by sub-q route for 20 days. active Not Available Not Available No t Available diltiazem 30 mg tablet active Not Available Not Available Not Available Vitamin D2 1,250 mcg (50,000 unit) capsule 07/19 completed Not Available Not Available Not Available fluoxetin e 20 mg capsule Take 1 capsule every day by oral route. 12/26 completed Not Available Not Available Not Available fluticaso ne propionat e 50 mcg/actua tion nasal spray,gisell pension 07/03 completed Not Available Not Available Not Available lamotrigi ne 100 mg tablet 07/19 completed Not Available Not Available Not Available naproxen 500 mg tablet 07/03 completed Not Available Not Available Not Available Maxzide 75 mg-50 mg tablet Take 1 tablet every day by oral route. active Not Available Not Available No t Available oxycodone 5 mg tablet Take 1 tablet 3 times a day by oral route for 20 days. active Not Available Not Available No t Available Triamtere ne W/Hctz 75 mg-50 mg tablet Take 1 tablet every day by oral route. 07/03 completed SW Not Available Not Available Not Available insulin lispro (U-100) 100 unit/mL subcutane ous cartridge Inject by subcutan eous route. 07/03 completed SW Not Available Not Available Not Available insulin aspart (U-100) 100 unit/mL (3 mL) subcutane ous pen Inject 1 sliding scale dose by sub-q route for 8 days. active Not Available Not Available No t Available potassium chloride ER 10 mEq tablet,ex tended release(p art/cryst ) Take 1 tablet every day by oral route for 90 days. active Not Available Not Available No t Available nitrofura ntoin monohydra te/macroc rystals 100 mg capsule 07/03 completed Not Available Not Available Not Available Nyamyc 100,000 unit/gram topical powder active Not Available Not Available Not Available lithium carbonate 12/26 completed SW/DOSE UNKNOWN BY PATIENT Not Available Not Available Not Available Levemir FlexPen 100 unit/mL (3 mL) solution subcutane ous insulin pen active Not Available Not Available Not Available amlodipin e 10 mg-benaze pril 40 mg capsule Take 1 capsule every day by oral route as directed for 90 days. active Not Available Not Available No t Available Lantus Solostar U-100 Insulin 100 unit/mL (3 mL) subcutane ous pen SLIDING SCALE active Not Available Not Available No t Available Humalog KwikPen (U-100) Insulin 100 unit/mL subcutane ous Inject by subcutan eous route. 12/26 completed SW Not Available Not Available Not Available BD Ultra-Fin e Diane Pen Needle 32 gauge x 5/32 active Not Available Not Available Not Available Bydureon 2 mg subcutane ous extended release suspensio n Inject by subcutan eous route. 12/26 completed SW Not Available Not Available Not Available Eliquis 5 mg tablet Take 1 tablet twice a day by oral route. active Not Available Not Available No t Available doxycycli ne hyclate 150 mg tablet Take 1 tablet twice a day by oral route. 12/26 completed SW Not Available Not Available Not Available Tresiba FlexTouch U-100 insulin 100 unit/mL (3 mL) subcutane ous pen Inject by subcutan eous route. 12/26 completed SW Not Available Not Available Not Available Vraylar 3 mg capsule Take 1 capsule every day by oral route for 30 days. active Not Available Not Available No t Available Ozempic 0.25 mg or 0.5 mg (2 mg/1.5 mL) subcutane ous pen injector 07/03 completed Not Available Not Available Not Available Dexcom G6 Sensor device 07/19 completed Not Available Not Available Not Available Dexcom G6 Teletypesetter Monitor 07/19 completed Not Available Not Available Not Available Dexcom G6 Transmitt er device 07/19 completed Not Available Not Available Not Available Omnipod Dash Pods (Gen 4) subcutane ous cartridge 07/03 completed Not Available Not Available Not Available Novolin 70-30 FlexPen U-100 Insulin 100 unit/mL (70-30) subcutane ous active Not Available Not Available Not Available Trulicity 3 mg/0.5 mL subcutane ous pen injector Inject 1 mL by sub-q route for 28 days. active Not Available Not Available No t Available Vitals Date Recorded Body height Body mass index (BMI) Body weight Oxygen saturation Oxygen saturation in Arterial blood by Pulse oximetry Heart rate Systolic And Diastolic Provider Name and Address Organization Details Last Updated DateTime 3 160.02 cm 58.5 kg/m2 243392. 92 g 98 % 98 % 93 /min 140/90 mm[Hg] Nissa DEXTER [facility] & [place] 3 15:13:33 Date Recorded Body height Body mass index (BMI) Body weight Oxygen saturation Oxygen saturation in Arterial blood by Pulse oximetry Heart rate Systolic And Diastolic Provider Name and Address Organization Details Last Updated DateTime 3 160.02 cm 59.9 kg/m2 317002. 22 g 98 % 98 % 99 /min 146/94 mm[Hg] Keri DEXTER [facility] & [place] 3 14:47:27 Date Recorded Body height Body mass index (BMI) Body weight Oxygen saturation Oxygen saturation in Arterial blood by Pulse oximetry Heart rate Systolic And Diastolic Provider Name and Address Organization Details Last Updated DateTime 2 160.02 cm 57.4 kg/m2 590760. 93 g 100 % 100 % 95 /min 170/94 mm[Hg] Keri DEXTER [facility] & [place] 2 10:27:51 Social History Question Answer Notes LastModified by Organizat ion Details LastModified Time Tobacco Smoking Status Former Smoker MARC Kearns [facility] & [place] 07/03/2022 15:23:37 When Did You Quit Smoking? 1-5yearssinc elastcigaret te [email or web address] Information not available 07/03/2022 What Was The Date Of Your Most Recent Tobacco Screening? 12/25/2021 [email or web address] Information not available 12/26/2021 How Much Tobacco Do You Smoke? 0.25 PPD [email or web address] Information not available 12/26/2021 How Many Years Have You Smoked Tobacco? 3 [email or web address] Information not available 12/26/2021 Sex: Unknown Functional Status Question Answer Note LastModified by Organizat ion Details LastModified Time Do you use any illicit or recreational drugs? No [email or web address] Information not available 12/26/2021 What is your level of alcohol consumption? Occasional [email or web address] Information not available 12/26/2021 What is your exercise level? Occasional [email or web address] Information not available 12/26/2021 Mental Status Question Answer Note LastModified by Organization D etails LastModified Time Do you feel stressed (tense, restless, nervous, or anxious, or unable to sleep at night)? [id number] [email or web address] Information not available 12/26/2021 Family History Relationship Description Onset Age of this Age Resolved Age Notes LastModified by Organization Details LastModified Time Mother Allergy pt. added direct ly (12/25) [email or web address] Not available 12/25/2021 22:31:19 Mother Sleep disorder pt. added direct ly (07/17) [email or web address] Not available 07/17/2022 06:04:46 Father Allergy pt. added direct ly (12/25) [email or web address] Not available 12/25/2021 22:31:19 Brother Allergy pt. added direct ly (12/25) [email or web address] Not available 12/25/2021 22:31:19 Brother Sleep disorder pt. added direct ly (07/17) [email or web address] Not available 07/17/2022 06:04:46 Daughter Allergy pt. added direct ly (12/25) [email or web address] Not available 12/25/2021 22:31:19 Son Allergy pt. added direct ly (12/25) [email or web address] Not available 12/25/2021 22:31:19 Maternal Grandmother Allergy pt. added direct ly (12/25) [email or web address] Not available 12/25/2021 22:31:19 Paternal Grandfather Allergy pt. added direct ly (12/25) [email or web address] Not available 12/25/2021 22:31:19 Maternal Aunt Allergy pt. added direct ly (12/25) [email or web address] Not available 12/25/2021 22:31:19 Maternal Uncle Allergy pt. added direct ly (12/25) [email or web address] Not available 12/25/2021 22:31:19 Paternal Aunt Allergy pt. added direct ly (12/25) [email or web address] Not available 12/25/2021 22:31:19 Paternal Uncle Allergy pt. added direct ly (12/25) [email or web address] Not available 12/25/2021 22:31:19 Medical History Condition Response Diabetes Y Obesity Y Arthritis Y Back Problems Y Stroke Y Kidney or Bladder Problems Y Acne Y High Cholesterol Y Psychiatric/Mental Health Condition Y Heart Attack ([place]) Y Heart Disease Y Obstructive Sleep Apnea Y Hypertension Y Gynecological HistoryNo gynecological history recorded. Obstetrics History GPAL:G 0 P 0 0 0 0 Past Encounters Encounter ID Performer Location Encounter Start Date Encounter Closed Date Diagnosis/Indication Diagnosis SNOMED-CT Code Diagnosis ICD10 Code Diagnosis IMO Codes Diagnosis Note [id number] MD AVILA Erazo [address] [place] [id number] 12/26/2021 10:14:21 12/26/2021 10:48:49 Palpitations 68775028 R00.2 Dyspnea on exertion 6084 5006 R06.09 Atrial fibrillation 4943 6004 I48.91 Obesity 069459979 E66.9 Diastolic dysfunction 35 57420 I51.9 Coronary arteriosclerosis 87056431 I25.10 [id number] MD AVILA Erazo [address] [place] [id number] 07/03/2022 14:59:36 07/03/2022 15:46:05 Atrial fibrillation 43323087 I48.91 Essential hypertension 76360364 I10 Angina pectoris 36116549 0 I20.9 Electrocar diogram abnormal 362184998 R94.31 Congestive heart failure 61143801 I50.9 Systolic murmur 88184326 R01.1 Long-term current use of anticoagulant 359915368 Z79.01 [id number] Casper Liao MD [address] [place] [id number] 07/19/2022 10:16:42 07/19/2022 10:17:01 Essential hypertension 29426639 I10 EKG INTERPRETA TION: EKG dated 07/03/22 revealed sinus rhythm, heart rate 95. Nonspecifi c T-abnormal ity inferolate ral. Abnormal. [id number] Casper Liao MD [facility] [address] [place] [address] 07/19/2022 14:28:19 07/19/2022 15:27:46 Congestive heart failure 92426665 I50.9 Atrial fibrillation 4943 6004 I48.91 Pulmonary hypertension 11170230 I27.20 Hypertensi ve heart disease 14386662 I11.9 Coronary atherosclerosis 217316187 I25.10 Health Concerns Section Related Observation LastModified by Organization Detai ls LastModified Time None Recorded Concern Status LastModified by Organization Details LastModified Time None Recorded Advance Directives Directive None Recorded Payers Insurance Date Sequence Insurance Name Policy Number Policy Martinez Covered Member ID Martinez Member ID Guarantor Name 11/21/2022 1 [facility] (MEDICAID REPLACEMENT - HMO) Eliz L Stien [id number] Eliz L Stien 11/21/2022 1 [facility] (MEDICAID REPLACEMENT - HMO) Eliz L Stien [id number] Eliz L Stien 03/26/2019 1 [facility] (MEDICAID HMO) Eliz L Stien [id number] Eliz L Stien 09/18/2021 1 [employer] Eliz L Stien [id number] Eliz L Stien Notes Date Note Type Note Provider Name and Address Organization Details Recorded Time 12/26/2021 text/html still with palpitations and fluttering of the heart. No chest pain or pressure. No shortness of breath. Blood pressure has been high Casper Liao MD [address] [place] [address],[address], [place], [address], [facility] & [place] 12/27/2021 07:59:08 07/03/2022 text/html Patient complains of worsening shortness of breath and lower extremity edema. She has had significant dyspnea on exertion, chest pressure and tightness. She is on maximal medical therapy and is on diuretics. The diuretics help some but her edema is gotten so severe that she is unable to wear shoes. Bret Maki NP [address] [place] [address],[address], [place], [address], [place] - [facility] 07/03/2022 16:05:35 07/19/2022 text/html Here for follow-up after cardiac catheterization. She still has some shortness of breath. Her groin is nontender. Bret Maki NP [address] [facility],[address], [place], [address], [place] - [facility] 07/20/2022 10:23:12 OBGyn Episode No OBEpisode recorded.
--- OUTSIDE RECORDS SUMMARY | 2025-02-02 18:23 | XMS_ITS | Data Portability ---
Author Organization [facility] Address [address] [place] [address] Care Team Providers Care Radiation Oncology Manager Name Role Phone SIVAN ZIMMER Can Sterilizer Unavailable Assessment Encounter Date Assessment Date Assessment LastModified by Organization Details LastModified Time 11/12/2017 11/12/2017 Radial cath per Normal CORS Hypertensive heart disease w/o failure 02 at night intol cpap infected tooth (L)lower molar Rx Breo 200 PVK 500 mg TID [facility] referral [email or web address] Not available 11/13/2017 17:44:46 12/19/2017 12/19/2017 refer to GI for eval of swallowing difficulty. start protonix. refill prozac. repeat chest xray. will notify of results. [email or web address] Not available 12/19/2017 14:00:10 Plan of Treatment Reminders Order Date Submit Date Provider Last Modified By Organization Details Last Modified Time Details Appointments None recorded. Lab HbA1c (hemoglobin A1c), blood 2024 025 [facility], [address] [place] [address], [id number], 5 16:58:51 Referral gastroenter ologist referral 2017 018 nakul Carrasco MD, [address] [place] [address] , [place] [address], [place], [address], 8 11:04:37 Procedures None recorded. Surgeries None recorded. Imaging XR, chest 2017 018 [facility], [address] [place], [address], 8 14:38:52 Medication Orders pantoprazol e 40 mg tablet,nereida acostad release 2017 018 [facility], [address] [place] [address], [address], 5 15:46:53 Prozac 20 mg capsule 2017 018 [facility], [address] [place] [address], [address], 5 15:43:04 clindamycin phosphate 1 % topical solution 2017 [address] [facility], [address] [place] [address], [address], 8 13:05:24 benzoyl peroxide 2.5 % topical gel 2017 018 [place] [address] [facility], [address] [place] [address], [address], 8 13:05:05 triamcinolo ne acetonide 0.1 % topical cream 2017 [address] [facility], [address] [place] [address], [address], 8 13:06:55 penicillin V potassium 500 mg tablet 2017 018 [place] [address] [facility], [address] [place] [address], [address], 8 13:06:47 Breo Ellipta 200 mcg-25 mcg/dose powder for inhalation 2017 018 [facility], [address] [place] [address], [address], 15:35:30 Patient TargetsNo targets recorded. Patient Instructions Encounter Date Encounter Id Patient Instructions Last Modified By Organization Details Last Modified Time 11/12/2017 [id number] controlling your asthma: care instructions sneus Not available 11/13/2017 19:50:19 learning about asthma sneus Not available 11/13/2017 19:50:19 When You Want to Lose Weight: Care Instructions sneus Not available 11/13/2017 19:50:19 12/19/2017 [id number] learning about swallowing problems Not available 12/19/2017 13:54:18 cough: care instructions Not available 12/19/2017 13:21:51 gastroesophageal reflux disease (GERD): care instructions [email or web address] Not available 12/19/2017 13:54:18 07/02/2024 [id number] body mass index: care instructions efryman Not available 07/02/2024 16:58:51 learning about healthy weight efryman Not available 07/02/2024 16:58:51 Reason for Referral [facility] D[facility] Department Referral for Dysphagia Referring Physician: Apoorva Issa, Family Medicine, Encounter Date: 12/19/2017 Results Created Date Observation Date Name Description Value Unit Range Abnormal Flag Note LastModifiedBy Organization Detail LastModifiedTime 11/05/19 18 11/04/2017 HbA1c (hemo globi n A1c), blood HbA1c 9.1 Not Available [address] , [place], [address], 11/04/2017 17:01:55 11/09/19 18 11/08/2017 urina lysis , dipst ick Leukocytes Negati ve Not Available [facility] [address] [place], [address], 11/08/2017 16:44:25 11/09/19 18 11/08/2017 urina lysis , dipst ick Nitrite negati ve Not Available [facility] [address] [place], [address], 11/08/2017 16:44:25 11/09/19 18 11/08/2017 urina lysis , dipst ick Urobilinogen .2 Not Available [address] [place], [address], 11/08/2017 16:44:25 11/09/19 18 11/08/2017 urina lysis , dipst ick Protein Negati ve Not Available [address] [place], [address], 11/08/2017 16:44:25 11/09/19 18 11/08/2017 urina lysis , dipst ick pH 5.5 Not Available [address] [place], [address], 11/08/2017 16:44:25 11/09/19 18 11/08/2017 urina lysis , dipst ick Blood Negati ve Not Available [address] [place], [address], 11/08/2017 16:44:25 11/09/19 18 11/08/2017 urina lysis , dipst ick Specific Knott 1.015 Not Available [address] [place], [address], 11/08/2017 16:44:25 11/09/19 18 11/08/2017 urina lysis , dipst ick Ketone Negati ve Not Available [address] [place], [address], 11/08/2017 16:44:25 11/09/19 18 11/08/2017 urina lysis , dipst ick Bilirubin Negati ve Not Available [address] [place], [address], 11/08/2017 16:44:25 08/17/20 18 11/08/2017 urina lysis , dipst ick Glucose 1000 Not Available [facility] [address] [place], [address], 11/08/2017 16:44:25 11/09/19 18 11/08/2017 urina lysis , dipst ick Appearance Clear Not Available [facility] [address] [place], [place] [address] [place], [address], 11/08/2017 16:44:25 11/09/19 18 11/08/2017 urina lysis , dipst ick Color Pale Yellow Not Available [facility] [address] [place], [place] [address] [place], [address], 11/08/2017 16:44:25 07/03/19 25 07/02/2024 HbA1c (hemo globi n A1c), blood HbA1C 7.8 % Not Available [address], [address], 07/02/2024 15:56:50 12/16/19 18 12/14/2017 XR, chest , 2 view No observ ation record ed. [facility] [address], [id number], 12/19/2017 13:42:48 12/20/19 18 12/19/2017 XR, chest No observ ation record ed. [email or web address] [place], [address], 12/19/2017 15:42:07 08/20/19 19 08/19/2018 XR, chest , 2 view No observ ation record ed. [email or web address] [facility], [place], [address], 08/25/2018 15:59:12 08/20/19 19 08/19/2018 CT, abdom en + pelvi s, w/o contr ast No observ ation record ed. [email or web address] [facility] [address] [place], [address], 08/25/2018 15:59:29 Result Notes None recorded. Problems Name Problem SNOMED Code Status Onset Date Resolution Date Notes Provider Name and Address Organization Details Recorded Time Arthropathy 769737848 Active Sherwin Alberto null, [place] - [facility] 6 18:24:34 Asthma 688933506 Active Sherwin Alber[place], [place] - [facility] 6 18:24:49 Mammographi c mass of breast 462581976 Active Sherwin Alberto [place] [facility] 6 18:25:19 Diabetes mellitus 15484873 Active Sherwin Alber[place] - [facility] 6 18:26:09 Essential hypertensio n 83265172 Active Sherwin Alberto [place] [facility] 6 18:29:05 Depressive disorder 62525459 Active Sherwin Alberto [place] [facility] 6 18:29:20 Menopausal syndrome 089276747 Active Sherwin Alber[place] [facility] 6 18:29:35 Obesity 883627094 Active Sherwin Alber[place] [facility] 6 18:29:50 Sleep apnea 30431342 Active Sherwin Alberto [place] [facility] 6 18:32:30 Cyst of ovary 63722516 Active Sherwin Alberto [place] [facility] 6 18:32:58 Microalbumi nuric diabetic nephropathy 146014365 Active 2015 Carlosmarshall Dean null, [place] - [facility] 6 17:14:09 Past history of eclampsia 946771986 Active 2015 Carlos Dean [place] - [facility] 6 17:31:29 Renewal of prescriptio n Completed 201611/09/2016 Lesli Crisostomo in null[place] - [facility] 7 17:15:25 Chronic abdominal pain 614878661 Active 2016 Carlos Dean [place] - [facility] 7 08:53:23 Fracture of foot 46465747 Active 2016 Carlos Dean [place] [facility] 7 08:54:01 Noncomplian ce with medication regimen 707348471 Active 2016 Carlos Dean [place] - [facility] 7 08:56:17 Retinopathy due to diabetes mellitus 4560209 Active 2018 Sivan Zimmer RN [address], [place], [address], [place] - [facility] 9 11:09:57 Problem Notes None recorded. Procedures Surgical History Date Name Laterality Status Provider Name and Address Organization Details Recorded Time 08/24/19 23 Amputation completed Marcia Maria [place] - [facility] 07/02/2024 15:19:09 07/15/19 18 Most Recent Mammogram completed Madeline Alan [place] - [facility] 12/19/2017 13:07:51 07/15/19 18 Date of Last Mammogram completed Madeline Alan [place] - [facility] 12/19/2017 13:07:56 06/21/19 18 Dexcom Placement completed Candace Marcelino [place] - [facility] 06/20/2017 14:39:54 12/29/19 16 VIANCA/BSO completed Sherwin Dominguez [place] - [facility] 2015 18:38:33 delivery completed Sherwin Dominguez [place] [facility] 01/17/2016 18:37:20 Cholecystectomy, laparoscopic completed Sherwin Dominguez [place] - [facility] 01/17/2016 18:37:29 Hernia Repair completed Sherwin Dominguez [place] - [facility] 01/17/2016 18:37:39 Breast Lumpectomy completed Sherwin Dominguez [place] - [facility] 01/17/2016 18:37:55 Removal of ovarian cyst(s) completed Sherwin Dominguez [place] [facility] 01/17/20 16 18:38:18 Cardiac Cath completed Sherwin Dominguez [place] - [facility] 01/17/2016 18:39:06 Endoscopy completed Sherwin Dominguez [place] - [facility] 01/17/2016 18:39:54 Imaging Results None recorded. Procedure Notes None recorded. Medical Equipment None Reported. Allergies No known drug allergies Medications Name Sig Start Date Stop Date Status Note LastModified by Organization Details LastModified Time Prescript ion - Clarifica tion 08/02 completed [facility] Not Available Not Available Not Available Prescript ion - Prior Authoriza tion Request active Not Available Not Available Not Available multivita min tablet take 1 tablet by oral route daily for 90 days 09/13 completed multivit gomez oral tablet;R ecorded Status: Recorded on: 07/07/19 14 8:43PM;D iscontin ued Status: Disconti nued on: 09/14/19 16 5:57PM;U ser: neuss Not Available Not Available Not Available fluoxetin e 40 mg capsule take 1 capsule (40 mg) by oral route once daily in the morning 09/13 completed fluoxeti ne 40 mg oral capsule; Prescrib e Status: Prescrib ed on: 11/20/19 15 12:22PM; Disconti nued Status: Disconti nued on: 09/14/19 16 5:57PM;U ser: neuss;Es t. Completi on: 05/18/19 16;Pharm acyVerif ied: 11/20/19 15 12:22PM Not Available Not Available Not Available furosemid e 40 mg tablet TAKE ONE TABLET BY MOUTH EVERY DAY active Not Available Not Available No t Available atorvasta tin 40 mg tablet TAKE ONE TABLET BY MOUTH EVERY DAY AT BEDTIME active Not Available Not Available No t Available metformin 500 mg tablet take 1 tablet (500 mg) by oral route 2 times per day with morning and evening meals for 30 days 03/26 completed metformi n 500 mg oral tablet;R ecorded Status: Recorded on: 02/02/20 08 1:43PM;D iscontin ued Status: Disconti nued on: 03/26/19 09 4:50PM;U ser: keefk;Es t. Completi on: 04/02/19 09;Indic ation: Type 2 Diabetes Mellitus - (03.2500 00);Prin tejinder: 02/02/20 08 Not Available Not Available Not Available terconazo le 0.4 % vaginal cream Insert 1 applicat orful every day by vaginal route for 7 days. 04/10 completed Not Available Not Available Not Available carvedilo l 25 mg tablet Take 1 tablet twice a day by oral route for 30 days. 07/02 completed Not Available Not Available Not Available potassium chloride ER 10 mEq capsule,e xtended release take 1 capsule by oral route BID CHECK DOSE 04/27 completed deirdre m chloride 10 mEq oral capsule, extended release; Recorded Status: Recorded on: 09/02/19 09 4:29PM;D iscontin ued Status: Disconti nued on: 04/27/19 10 4:22PM;U ser: gillisa; Indicati on: Hypokale kenrick Preventi on - () Not Available Not Available Not Available clonidine HCl 0.1 mg tablet take 1 tablets by oral route daily 07/06 completed clonidin e HCl 0.1 mg oral tablet;R ecorded Status: Recorded on: 03/31/19 14 4:10PM;D iscontin ued Status: Disconti nued on: 07/07/19 14 7:37PM;U ser: neuss;Es t. Completi on: 09/28/19 14;Indic ation: Hyperten arnel - () Not Available Not Available Not Available carvedilo l 12.5 mg tablet take 1 tablet (12.5 mg) by oral route 2 times per day with food 09/26 completed carvedil ol 12.5 mg oral tablet;R ecorded Status: Recorded on: 10/01/19 10 12:24PM; Disconti nued Status: Disconti nued on: 09/27/19 11 6:13PM;U ser: bishopk; Indicati on: Hyperten arnel - () Not Available Not Available Not Available nicotine 14 mg/24 hr daily transderm al patch 02/06 completed Not Available Not Available Not Available enalapril maleate 10 mg tablet 1 tab po bid 03/26 completed Enalapri l Maleate 10 mg;Recor ded Status: Recorded on: 01/27/20 08 5:14PM;D iscontin ued Status: Disconti nued on: 03/26/19 09 4:50PM;U ser: dcostag; Est. Completi on: 02/26/20 08;Indic ation: - (-5);Meg nted: 01/27/20 08 Not Available Not Available Not Available albuterol sulfate 2.5 mg/3 mL (0.083 %) solution for nebulizat ion inhale 3 millilit ers (2.5 mg) by nebuliza tion route every 6 hours for 30 days 01/27 completed albutero l sulfate 2.5 mg /3 mL (0.083 %) inhalati on solution for nebuliza tion;Pre scribe Status: Prescrib ed on: 12/29/19 15 1:12PM;U ser: neuss;Es t. Completi on: 01/28/20 15;Pharm acyVerif ied: 12/29/19 15 1:12PM Not Available Not Available Not Available Humulin R U-500 (Concentr ated) Insulin 500 unit/mL subcutane ous soln INJECT 400 UNITS ONCE DAILY PER INSULIN PUMP. 07/02 completed Not Available Not Available Not Available oxybutyni n chloride ER 10 mg tablet,ex tended release 24 hr 10/09 completed Not Available Not Available Not Available azithromy shantelle 250 mg tablet take 2 tablets (500 mg) by oral route once daily for 1 day then 1 tablet (250 mg) by oral route once daily for 4 days 04/10 completed Not Available Not Available Not Available ibuprofen 800 mg tablet take 1 tablet by oral route 3 times a day for 7 days 02/07 completed Not Available Not Available Not Available metoprolo l succinate ER 50 mg tablet,ex tended release 24 hr TAKE ONE TABLET BY MOUTH EVERY DAY active Not Available Not Available No t Available ranitidin e 300 mg tablet TAKE ONE (1) TABLET BY MOUTH TWO TIMES A DAY. 11/04 completed Not Available Not Available Not Available hydrocodo ne 5 mg-acetam inophen 325 mg tablet Take 1 tablet 3 times a day by oral route as needed. active Not Available Not Available No t Available tolterodi ne 1 mg tablet 1 po BID 05/07 completed Not Available Not Available Not Available Keflex 500 mg capsule take 1 capsule (500 mg) by oral route every 12 hours for 14 days 09/26 completed Keflex 500 mg oral capsule; Recorded Status: Recorded on: 09/06/19 11 12:07PM; Disconti nued Status: Disconti nued on: 09/27/19 11 6:13PM;U ser: tuckerd; Est. Completi on: 09/20/19 11;Print ed: 09/06/19 11 Not Available Not Available Not Available Vicodin ES 7.5 mg-750 mg tablet take 0.5 tablet by oral route daily 09/29 completed Vicodin ES 7.5-750 mg oral tablet;R ecorded Status: Recorded on: 01/17/20 10 4:22PM;D iscontin ued Status: Disconti nued on: 09/30/19 11 4:00PM;U ser: neuss;Es t. Completi on: 01/20/20 10 Not Available Not Available Not Available ondansetr on HCl 8 mg tablet 07/02 completed Not Available Not Available Not Available Restoril 15 mg capsule take 1 capsule (15 mg) by oral route once daily at bedtime as needed 09/05 completed Restoril 15 mg oral capsule; Recorded Status: Recorded on: 02/12/20 09 8:17PM;D iscontin ued Status: Disconti nued on: 09/06/19 10 2:27PM;U ser: k; Est. Completi on: 04/08/19 10;Indic ation: Insomnia - (16.7805 ) Not Available Not Available Not Available lisinopri l 20 mg tablet take 1 tablet (20 mg) by oral route once daily 12/06 completed lisinopr il 20 mg oral tablet;R ecorded Status: Recorded on: 10/26/19 11 9:53AM;D iscontin ued Status: Disconti nued on: 12/07/19 11 6:44PM;U ser: bishopk; Est. Completi on: 04/17/19 12;Indic ation: Hyperten arnel - (07.4019 ) Not Available Not Available Not Available benzoyl peroxide 2.5 % topical gel APPLY A THIN LAYER TO THE AFFECTED AREA(S) BY TOPICAL ROUTE ONCE - Twice DAILY as tolerate d 12/19 completed Not Available Not Available Not Available ondansetr on HCl 4 mg tablet take 1 tab po q 6 hours prn 06/07 completed Not Available Not Available Not Available Medrol (Sawyer) 4 mg tablets in a dose pack take as directed for 6 days 05/18 completed Medrol (Sawyer) 4 mg oral tablets, dose pack;Pre scribe Status: Prescrib ed on: 03/26/19 15 4:11PM;D iscontin ued Status: Disconti nued on: 05/18/19 15 5:35PM;U ser: neuss;Es t. Completi on: 04/01/19 15;Pharm acyVjt ied: 03/26/19 15 4:11PM Not Available Not Available Not Available clonazepa m 0.5 mg tablet take 1 tablet by oral route q hs prn 10/13 completed clonazep am 0.5 mg oral tablet;R ecorded Status: Recorded on: 09/14/19 16 7:49PM;U ser: neuss;Es t. Completi on: 10/14/19 16;Indic ation: Major depressi ve disorder , recurren t episode, in partial remissio n - (296.35) Not Available Not Available Not Available sertralin e 100 mg tablet take 1 tablet (100 mg) by oral route once daily 02/07 completed Not Available Not Available Not Available Benzamyci n 3 %-5 % topical gel APPLY TO THE AFFECTED AREA(S) BY TOPICAL ROUTE 2 TIMES PER DAY IN THEMORNI NG AND EVENING PRN 07/05 completed Not Available Not Available Not Available Lantus U-100 Insulin 100 unit/mL subcutane ous solution 70 units q pm 01/05 completed Lantus 100 unit/mL subcutan eous solution ;Recorde d Status: Recorded on: 12/19/19 14 4:57PM;D iscontin ued Status: Disconti nued on: 01/06/20 14 5:38PM;U ser: neuss;Es t. Completi on: 03/18/20 14;Indic ation: Type 2 Diabetes Mellitus - () Not Available Not Available Not Available Diflucan 150 mg tablet take 1 tablet (150 mg) by oral route once 09/05 completed Diflucan 150 mg oral tablet;R ecorded Status: Recorded on: 04/27/19 10 4:33PM;D iscontin ued Status: Disconti nued on: 09/06/19 10 2:27PM;U ser: rankinw; Est. Completi on: 04/29/19 10;Indic ation: Vulvovag inal Candidia sis - ();Prin tejinder: 04/27/19 10 Not Available Not Available Not Available promethaz ine 6.25 mg-codein e 10 mg/5 mL syrup 05/24 completed Not Available Not Available Not Available penicilli n V potassium 500 mg tablet Take 1 tablet 3 times a day by oral route for 10 days. 12/19 completed Not Available Not Available Not Available Nexium 40 mg capsule,d elayed release take 1 capsule by oral route daily for 30 days 03/26 completed Nexium 40 mg oral capsule, delayed release( /EC);R ecorded Status: Recorded on: 01/27/20 08 5:14PM;D iscontin ued Status: Disconti nued on: 03/26/19 09 4:51PM;U ser: dcostag; Est. Completi on: 06/26/19 09;Indic ation: Gastroes ophageal Reflux - (53011 01);Prin tejinder: 01/27/20 08 Not Available Not Available Not Available topiramat e 25 mg tablet take 1 tablet by oral route 2 times a day 02/06 completed topirama te 25 mg oral tablet;R ecorded Status: Recorded on: 09/14/19 16 5:57PM;U ser: neuss;In dication : Migraine Preventi on - (34611 23) Not Available Not Available Not Available potassium chloride ER 10 mEq tablet,ex tended release TAKE 1 TABLET BY MOUTH DAILY WITH LASIX. 11/09 completed Not Available Not Available Not Available metronida zole 500 mg tablet 02/06 completed Not Available Not Available Not Available diltiazem ER 300 mg capsule,2 4 hr,extend ed release Take 1 capsule every day by oral route. active Not Available Not Available No t Available acetamino phen 300 mg-codein e 30 mg tablet take 1 tablet by oral route Q8H 11/27 completed Not Available Not Available Not Available amlodipin e 5 mg tablet Take 1 tablet every day by oral route. 07/02 completed Not Available Not Available Not Available ciproflox acin 500 mg tablet 02/06 completed Not Available Not Available Not Available sulfameth oxazole 800 mg-trimet hoprim 160 mg tablet take 2 tablets by oral route 2 times a days 07/02 completed Not Available Not Available Not Available omeprazol e 40 mg capsule,d elayed release take 1 capsule by oral route daily 07/06 completed omeprazo le 40 mg oral capsule, delayed release( /EC);R ecorded Status: Recorded on: 11/27/19 13 9:16AM;D iscontin ued Status: Disconti nued on: 07/07/19 14 7:37PM;U ser: neuss;In dication : Gastroes ophageal Reflux - (09.5308 10) Not Available Not Available Not Available Reglan 10 mg tablet take 1 tablet by oral route tid prn 11/10 completed Reglan 10 mg oral tablet;P rescribe Status: Prescrib ed on: 10/18/19 13 3:33PM;D iscontin ued Status: Disconti nued on: 11/11/19 13 2:55PM;U ser: neuss;Es t. Completi on: 11/01/19 13;Pharm acyVerif ied: 10/18/19 13 3:33PM Not Available Not Available Not Available aspirin 81 mg tablet,de layed release take 1 tablet (81 mg) by oral route once daily 04/27 completed aspirin 81 mg oral tablet,d elayed release (/EC); Recorded Status: Recorded on: 03/26/19 09 4:51PM;D iscontin ued Status: Disconti nued on: 04/27/19 10 4:22PM;U ser: haym Not Available Not Available Not Available doxycycli ne monohydra te 100 mg tablet Take 1 tablet twice a day by oral route for 10 days. 11/04 completed Not Available Not Available Not Available tramadol 50 mg tablet 02/06 completed Not Available Not Available Not Available amitripty line 50 mg tablet Take 2 tablets every day by oral route at bedtime for 30 days. 07/02 completed Not Available Not Available Not Available triamcino lone acetonide 0.1 % topical cream APPLY A THIN LAYER TO THE AFFECTED AREA(S) BY TOPICAL ROUTE 2 TIMES PER DAY 12/19 completed Not Available Not Available Not Available spironola ctone 25 mg tablet take 1 tablet (25 mg) by oral route once daily 07/02 completed Not Available Not Available Not Available amoxicill in 500 mg tablet take 1 tablet (500 mg) by oral route every 8 hours for 10 days 05/18 completed amoxicil elvira 500 mg oral tablet;R ecorded Status: Recorded on: 04/27/19 10 4:33PM;D iscontin ued Status: Disconti nued on: 05/18/19 10 5:25PM;U ser: rankinw; Est. Completi on: 05/07/19 10;Indic ation: Acute Bacteria l Sinusiti s - (4619 );Prin tejinder: 04/27/19 10 Not Available Not Available Not Available Prevacid 30 mg capsule,d elayed release take 1 capsule (30 mg) by oral route once daily before a meal for 30 days 04/27 completed Prevacid 30 mg oral capsule, delayed release( /EC);R ecorded Status: Recorded on: 09/02/19 09 4:29PM;D iscontin ued Status: Disconti nued on: 04/27/19 10 4:22PM;U ser: gillisa; Indicati on: Gastroes ophageal Reflux - (5308 ) Not Available Not Available Not Available Kenalog 0.147 mg/gram topical aerosol apply 1 spray by topical route 2 times per day for 10 days 09/05 completed Kenalog 0.147 mg/gram topical aerosol; Recorded Status: Recorded on: 10/04/19 10 11:32AM; Disconti nued Status: Disconti nued on: 09/06/19 11 11:32AM; User: luis eduardo;Hina t. Completi on: 10/11/19 10 Not Available Not Available Not Available lamotrigi ne 25 mg tablet take 2 tablets (50 mg) by oral route 2 times per day for 15 days 10/09 completed Not Available Not Available Not Available Bactroban 2 % topical cream apply a small amount to the affected area by topical route 3 times per day for 10 days 04/27 completed Bactroba n 2 % topical cream;Re corded Status: Recorded on: 06/15/19 09 4:54PM;D iscontin ued Status: Disconti nued on: 04/27/19 10 4:22PM;U ser: gillisa; Est. Completi on: 06/25/19 09;Print ed: 06/15/19 09 Not Available Not Available Not Available oxycodone -acetamin ophen 5 mg-325 mg tablet take 1/2 - 1 tablets by oral route qd prn severe pain 07/02 completed Not Available Not Available Not Available ceftriaxo ne 1 gram solution for injection Take 1 g by injectio n route. 08/31 completed Not Available Not Available Not Available Augmentin 250 mg-62.5 mg/5 mL oral suspensio n take 10 millilit ers by oral route every 12 hours for 10 days 05/07 completed Augmenti n 250-62.5 mg/5 mL oral suspensi on for reconsti tution;R ecorded Status: Recorded on: 02/27/20 12 3:17PM;D iscontin ued Status: Disconti nued on: 05/07/19 13 12:15PM; User: luis eduardo;Hina t. Completi on: 03/08/20 12;Indic ation: Diabetes Mellitus , Type II - (250.00) Not Available Not Available Not Available clonidine HCl 0.2 mg tablet take 1 tablet by oral route 2 times a day 07/07 completed clonidin e HCl 0.2 mg oral tablet;R ecorded Status: Recorded on: 06/27/19 13 12:31PM; Disconti nued Status: Disconti nued on: 07/08/19 13 7:58PM;U ser: neuss;Es t. Completi on: 11/04/19 13;Indic ation: [facility] Hyperten arnel - (401.9) Not Available Not Available Not Available citalopra m 20 mg tablet take 1 tablet (20 mg) by oral route once daily for 30 days 07/07 completed citalopr am 20 mg oral tablet;R ecorded Status: Recorded on: 06/04/19 12 3:49PM;D iscontin ued Status: Disconti nued on: 07/08/19 13 7:58PM;U ser: neuss;Es t. Completi on: 12/01/19 12;Indic ation: Depressi on - (9945 00);Prin tejinder: 07/09/19 12 Not Available Not Available Not Available tolterodi ne 2 mg tablet 1 q day 11/04 completed Not Available Not Available Not Available methocarb shanon 750 mg tablet take 1 tablet (750 mg) by oral route TID PRN 04/27 completed methocar bamol 750 mg oral tablet;R ecorded Status: Recorded on: 11/20/19 09 1:55PM;D iscontin ued Status: Disconti nued on: 04/27/19 10 4:22PM;U ser: [email or web address]; Est. Completi on: 12/20/19 09;Indic ation: Muscle Spasm - (13.7288 50) Not Available Not Available Not Available torsemide 100 mg tablet take 0.5 tablet by oral route daily 09/29 completed torsemid e 100 mg oral tablet;R ecorded Status: Recorded on: 10/01/19 10 12:24PM; Disconti nued Status: Disconti nued on: 09/30/19 11 4:14PM;U ser: [email or web address]; Est. Completi on: 10/31/19 10;Indic ation: Hyperten arnel - (4019 00) Not Available Not Available Not Available Nitrostat 0.4 mg sublingua l tablet as needed 11/12 completed Not Available Not Available Not Available oxycodone -acetamin ophen 10 mg-325 mg tablet 11/04 completed Not Available Not Available Not Available trazodone 100 mg tablet take 1 tablet by oral route once a day (at bedtime) for 30 days 11/19 completed trazodon e 100 mg oral tablet;R ecorded Status: Recorded on: 06/05/19 15 2:34PM;D iscontin ued Status: Disconti nued on: 11/20/19 15 12:17PM; User: luis eduardo;Hina Rothman on: 10/03/19 15;Print ed: 06/05/19 15 Not Available Not Available Not Available dicyclomi ne 20 mg tablet take 1 tablet (20 mg) by oral route every 6 hrs for abdomina l cramping 06/05 completed Not Available Not Available Not Available meclizine 25 mg tablet Take 1 tablet 3 times a day by oral route as needed. active Not Available Not Available No t Available amlodipin e 10 mg tablet Take 1 tablet every day by oral route. 06/07 completed Not Available Not Available Not Available benzonata te 100 mg capsule active Not Available Not Available Not Available promethaz ine-pheny lephrine- codeine 6.25 mg-5 mg-10 mg/5 mL oral syrup Take 5 mL every 6 hours by oral route as needed. 05/24 completed Not Available Not Available Not Available doxycycli ne monohydra te 100 mg capsule twice daily 07/30 completed doxycycl ine monohydr ate 100 mg oral capsule; Recorded Status: Recorded on: 06/05/19 15 1:52PM;D iscontin ued Status: Disconti nued on: 07/31/19 15 2:23PM;U ser: luis eduardo;Hina Rothman on: 07/05/19 15 Not Available Not Available Not Available insulin aspart U-100 100 unit/mL subcutane ous solution For use in insulin pump/omn ipod as directed - 90 units a day max. active Not Available Not Available No t Available hydrocodo ne 7.5 mg-acetam inophen 325 mg tablet 1 po BID 07/02 completed Not Available Not Available Not Available Humulin R Regular U-100 Insulin 100 unit/mL injection solution per sliding scale 10/09 completed Not Available Not Available Not Available pantopraz ole 40 mg tablet,de layed release TAKE 1 TABLET BY MOUTH DAILY. 07/02 completed Not Available Not Available Not Available oseltamiv ir 75 mg capsule Take 1 capsule twice a day by oral route for 5 days. 06/05 completed Not Available Not Available Not Available Prozac 20 mg capsule Take 1 capsule every day by oral route. 07/02 completed Not Available Not Available Not Available fluoxetin e 20 mg tablet take 1 tablet (20 mg) by oral route once daily in the morning 11/19 completed fluoxeti ne 20 mg oral tablet;R ecorded Status: Recorded on: 06/04/19 15 12:13PM; Disconti nued Status: Disconti nued on: 11/20/19 15 12:17PM; User: Eduardo Pina on: 12/01/19 15 Not Available Not Available Not Available metformin 1,000 mg tablet take 0.5 po bid x7days,t hen 1 po bid 02/27 completed metformi n 1,000 mg oral tablet;c omment: not taking;R ecorded Status: Recorded on: 10/26/19 11 10:14AM; Disconti nued Status: Disconti nued on: 02/28/20 13 12:21PM; User: Han Rothman on: 04/23/19 12;Print ed: 07/09/19 12 Not Available Not Available Not Available nystatin 100,000 unit/gram topical cream 07/02 completed Not Available Not Available Not Available Effexor 100 mg tablet take 1 tablet (100 mg) by oral route 2 times per day with food for 30 days 10/10 completed Effexor 100 mg oral tablet;R ecorded Status: Recorded on: 05/20/19 10 10:50AM; Disconti nued Status: Disconti nued on: 10/11/19 10 8:10PM;U ser: luis eduardo;Es t. Completi on: 06/18/19 10 Not Available Not Available Not Available Effexor XR 150 mg capsule,e xtended release take 1 capsule (150 mg) by oral route once daily with food 09/26 completed Effexor XR 150 mg oral capsule, extended release 24hr;Rec orded Status: Recorded on: 10/11/19 10 8:10PM;D iscontin ued Status: Disconti nued on: 09/27/19 11 6:13PM;U ser: neuss;Es t. Completi on: 03/30/19 11;Indic ation: Depressi on - (1670 ) Not Available Not Available Not Available lisinopri l 10 mg tablet take 1 tablet (10 mg) by oral route once daily 10/25 completed lisinopr il 10 mg oral tablet;R ecorded Status: Recorded on: 09/27/19 11 6:13PM;D iscontin ued Status: Disconti nued on: 10/26/19 11 9:53AM;U ser: [email or web address]; Est. Completi on: 12/26/19 11;Indic ation: Hyperten arnel - (0161 ) Not Available Not Available Not Available Pravachol 20 mg tablet hs 07/06 completed Pravacho l 20 mg oral tablet;R ecorded Status: Recorded on: 02/28/20 13 12:21PM; Disconti nued Status: Disconti nued on: 07/07/19 14 7:37PM;U ser: neuss;Es t. Completi on: 08/27/19 14;Indic ation: Primary Preventi on of Coronary Heart Disease - (6359 ) Not Available Not Available Not Available hyoscyami ne 0.125 mg sublingua l tablet 07/02 completed Not Available Not Available Not Available naproxen 500 mg tablet,de layed release take 1 tablet by oral route 2 times a day for 7 days 04/27 completed naproxen 500 mg oral tablet,d elayed release (/EC); Recorded Status: Recorded on: 11/04/19 09 3:53PM;D iscontin ued Status: Disconti nued on: 04/27/19 10 4:22PM;U ser: calvom;E st. Completi on: 11/11/19 09;Indic ation: Pain - (16.7809 00);Prin tejinder: 11/04/19 09 Not Available Not Available Not Available promethaz ine 25 mg tablet take 1 tablet (25 mg) by oral route every 6 hours as needed for 30 days 02/06 completed Not Available Not Available Not Available metoprolo l tartrate 50 mg tablet take 1 tablet (50 mg) by oral route 2 times per day with meals 09/13 completed metoprol ol tartrate 50 mg oral tablet;P rescribe Status: Prescrib ed on: 11/20/19 15 12:22PM; Disconti nued Status: Disconti nued on: 09/14/19 16 5:57PM;U ser: neuss;Es t. Completi on: 05/18/19 16;Pharm acyVerif ied: 11/20/19 15 12:22PM Not Available Not Available Not Available hydrochlo rothiazid e 12.5 mg capsule 07/02 completed Not Available Not Available Not Available gabapenti n 300 mg capsule take 1 capsule (300 mg) by oral route 3 times per day for 30 days 07/02 completed Not Available Not Available Not Available aspirin 81 mg chewable tablet chew 1 tablet by oral route QD for 100 days do not take if you are allergic to aspirin or its componen ts, or have question s of gastroin testinal intolera nce 07/02 completed Not Available Not Available Not Available Bentyl 10 mg capsule Take 1 capsule 3 times a day by oral route. 10/09 completed Not Available Not Available Not Available etodolac 400 mg tablet 02/07 completed Not Available Not Available Not Available monteluka st 10 mg tablet Take 1 tablet every day by oral route. 04/10 completed Not Available Not Available Not Available hydroxyzi ne HCl 25 mg tablet Take 1 tablet every 6 hours by oral route as needed. active Not Available Not Available No t Available hydralazi ne 50 mg tablet Take 1 tablet 3 times a day by oral route. active Not Available Not Available No t Available ranitidin e 150 mg capsule take 1 capsule (150 mg) by oral route 2 times per day for 30 days 11/19 completed ranitidi ne HCl 150 mg oral capsule; Recorded Status: Recorded on: 08/12/19 14 5:25PM;D iscontin ued Status: Disconti nued on: 11/20/19 15 12:17PM; User: neuss;In dication : Gastroes ophageal Reflux - (.5308 10) Not Available Not Available Not Available hydrochlo rothiazid e 25 mg tablet take 1 tablet (25 mg) by oral route once daily 07/02 completed Not Available Not Available Not Available mupirocin 2 % topical ointment APPLY A SMALL AMOUNT TO THE AFFECTED AREA BY TOPICAL ROUTE 3 TIMES PER DAY active Not Available Not Available No t Available furosemid e 20 mg tablet TAKE 1 TABLET BY MOUTH ONCE DAILY 07/02 completed Not Available Not Available Not Available gabapenti n 100 mg capsule take 1 capsule by oral route 3 times a day 02/27 completed gabapent in 100 mg oral capsule; Recorded Status: Recorded on: 01/07/20 12 7:50PM;D iscontin ued Status: Disconti nued on: 02/28/20 13 12:21PM; User: [email or web address];Hina Rothman on: 04/06/19 13;Print ed: 01/07/20 12 Not Available Not Available Not Available metoprolo l succinate ER 25 mg tablet,ex tended release 24 hr TAKE ONE TABLET BY MOUTH EVERY DAY active Not Available Not Available No t Available albuterol 90 mcg/actua tion aerosol inhaler inhale 2 puffs by inhalati on route every 4-6 hours as needed for 30 days 07/30 completed albutero l 90 mcg/actu ation inhalati on aerosol; Recorded Status: Recorded on: 09/29/19 09 4:21PM;D iscontin ued Status: Disconti nued on: 07/31/19 12 1:19PM;U ser: [email or web address] Rothman on: 03/27/19 10;Print ed: 07/09/19 12 Not Available Not Available Not Available Indocin SR 75 mg capsule,e xtended release take 1 capsule (75 mg) by oral route once daily with food 04/27 completed Indocin SR 75 mg oral capsule, extended release; Recorded Status: Recorded on: 09/02/19 09 4:29PM;D iscontin ued Status: Disconti nued on: 04/27/19 10 4:22PM;U ser: [email or web address] Not Available Not Available Not Available lorazepam 1 mg tablet 1 q day 06/07 completed Not Available Not Available Not Available insulin lispro (U-100) 100 unit/mL subcutane ous solution Inject 1 sliding scale dose by subcutan eous route as directed . active Not Available Not Available No t Available levofloxa shantelle 500 mg tablet 05/24 completed Not Available Not Available Not Available oxycodone -acetamin ophen 7.5 mg-325 mg tablet 07/02 completed Not Available Not Available Not Available levofloxa shantelle 750 mg tablet TAKE ONE TABLET BY MOUTH EVERY DAY -- FINISH ALL MEDICINE -- --TAKE WITH FOOD-- 12/21 completed Not Available Not Available Not Available benazepri l 40 mg tablet Take 1 tablet every day by oral route. 06/07 completed Not Available Not Available Not Available Vitamin D2 1,250 mcg (50,000 unit) capsule Take 1 capsule every week by oral route as directed for 30 days. 07/02 completed Not Available Not Available Not Available lisinopri l 40 mg tablet TAKE ONE (1) TABLET BY MOUTH TWO TIMES A DAY. 07/02 completed Not Available Not Available Not Available ondansetr on 4 mg disintegr ating tablet one po q 8hours prn 09/13 completed ondanset curtis 4 mg oral tablet,d isintegr ating;Pr escribe Status: Prescrib ed on: 02/12/20 15 11:58AM; Disconti nued Status: Disconti nued on: 09/14/19 16 5:57PM;U ser: neuss;Es t. Completi on: 02/22/20 15;Pharm acyVerif ied: 02/12/20 15 11:58AM Not Available Not Available Not Available cefdinir 300 mg capsule 07/02 completed Not Available Not Available Not Available losartan 100 mg tablet Take 1 tablet every day by oral route. active Not Available Not Available No t Available Celexa 40 mg tablet take 1 tablet (40 mg) by oral route once daily for 40 days 05/20 completed Celexa 40 mg oral tablet;R ecorded Status: Recorded on: 02/12/20 09 4:34PM;D iscontin ued Status: Disconti nued on: 05/20/19 10 10:50AM; User: Han tGuillermo Completi on: 03/23/20 09 Not Available Not Available Not Available Lortab 5 mg-500 mg tablet take 1-2 tablets by oral route every 4 hours as needed for 30 days 10/10 completed Lortab 5-500 mg oral tablet;R ecorded Status: Recorded on: 10/01/19 10 12:24PM; Disconti nued Status: Disconti nued on: 10/11/19 10 8:10PM;U ser: [email or web address]; Est. Completi on: 10/23/19 10;Indic ation: Pain - (16.7809 00) Not Available Not Available Not Available lamotrigi ne 100 mg tablet 1/2 bid 11/04 completed Not Available Not Available Not Available naproxen 500 mg tablet 07/02 completed Not Available Not Available Not Available spironola ctone 50 mg tablet Take 1 tablet twice a day by oral route as needed. active Not Available Not Available No t Available amoxicill in 875 mg-potass ium clavulana te 125 mg tablet 07/02 completed Not Available Not Available Not Available Actos 30 mg tablet take 1 tablet (30 mg) by oral route once daily 02/22 completed Actos 30 mg oral tablet;c omment: pt not taking;R ecorded Status: Recorded on: 03/26/19 09 4:51PM;D iscontin ued Status: Disconti nued on: 02/23/20 09 1:37PM;U ser: haym Not Available Not Available Not Available Reglan 5 mg tablet take 1 tablet (5 mg) by oral route 4 times per day 30 minutes before meals and at bedtime 09/26 completed Reglan 5 mg oral tablet;R ecorded Status: Recorded on: 09/27/19 11 4:43PM;D iscontin ued Status: Disconti nued on: 09/27/19 11 6:13PM;U ser: [email or web address]; Est. Completi on: 06/24/19 11;Indic ation: Gastroes ophageal Reflux - () Not Available Not Available Not Available clindamyc in phosphate 1 % topical solution APPLY TO THE AFFECTED AREA TWO TIMES A DAY, IN THE MORNING AND EVENING. 12/19 completed Not Available Not Available Not Available Benadryl 25 mg capsule take 1 capsule (25 mg) by oral route every 6 hours as needed for 30 days 10/13 completed Benadryl 25 mg oral capsule; Recorded Status: Recorded on: 06/06/19 12 3:41PM;D iscontin ued Status: Disconti nued on: 10/14/19 13 3:50PM;U ser: vesth;Es t. Completi on: 08/05/19 12;Print ed: 07/09/19 12 Not Available Not Available Not Available Benicar 40 mg tablet take 1 tablet (40 mg) by oral route once daily for 30 days 04/27 completed Benicar 40 mg oral tablet;R ecorded Status: Recorded on: 09/02/19 09 4:29PM;D iscontin ued Status: Disconti nued on: 04/27/19 10 4:22PM;U ser: gillisa; Indicati on: Hyperten arnel - () Not Available Not Available Not Available Humalog U-100 Insulin 100 unit/mL subcutane ous cartridge 7 units ac 01/06 completed Humalog 100 unit/mL subcutan eous cartridg e;Record ed Status: Recorded on: 01/07/20 12 7:48PM;D iscontin ued Status: Disconti nued on: 01/07/20 12 7:50PM;U ser: neuss;Es t. Completi on: 07/03/19 13;Indic ation: Type 2 Diabetes Mellitus - () Not Available Not Available Not Available Mucinex 600 mg tablet, extended release Take 1 tablet every 12 hours by oral route for 30 days. 04/10 completed Not Available Not Available Not Available insulin aspart (U-100) 100 unit/mL (3 mL) subcutane ous pen 7 units ac active Not Available Not Available No t Available Pen Needle 29 gauge x 1/2 use as directed 10/19 completed Pen Needle 29 gauge x 1/2 miscella neous needle;R ecorded Status: Recorded on: 09/30/19 11 3:59PM;D iscontin ued Status: Disconti nued on: 10/20/19 11 3:56PM;U ser: [email or web address]; Est. Completi on: 12/29/19 11 Not Available Not Available Not Available Benicar HCT 20 mg-12.5 mg tablet take 1 tablet by oral route once daily 09/22 completed Benicar HCT 20-12.5 mg oral tablet;R ecorded Status: Recorded on: 05/20/19 13 12:54PM; Disconti nued Status: Disconti nued on: 09/23/19 13 6:24PM;U ser: neuss;In dication : Hyperten arnel - (07.4019 00) Not Available Not Available Not Available Prilosec OTC 20 mg tablet,de layed release take 1 tablet by oral route daily 07/30 completed Prilosec OTC 20 mg oral tablet,d elayed release (/EC); Recorded Status: Recorded on: 09/27/19 11 4:43PM;D iscontin ued Status: Disconti nued on: 07/31/19 12 1:19PM;U ser: [email or web address]; Est. Completi on: 11/21/19 11 Not Available Not Available Not Available Horizon Nasal Cpap System device q hs 07/02 completed c-pap inhaled 10 pressure ;Recorde d Status: Recorded on: 10/01/19 10 12:28PM; User: edna Dixonti on: ajay - (-5) Not Available Not Available Not Available nitrofura ntoin monohydra te/macroc rystals 100 mg capsule take 1 capsule (100 mg) by oral route every 12 hours with food for 10 days 02/06 completed Not Available Not Available Not Available OneTouch UltraSoft Lancets use tid DX: 250.00 11/19 completed OneTouch UltraSof t Lancets miscella neous misc;Rec orded Status: Recorded on: 03/13/20 13 4:41PM;D iscontin ued Status: Disconti nued on: 11/20/19 15 12:20PM; User: [email or web address];Es t. Completi on: 08/11/19 14 Not Available Not Available Not Available Pen Needle 31 gauge x 1/4 use as directed 08/12 completed Pen Needle 31 gauge x 1/4 miscella neous needle;R ecorded Status: Recorded on: 03/13/20 13 4:41PM;D iscontin ued Status: Disconti nued on: 08/13/19 14 3:49PM;U ser: neuss;Es t. Completi on: 09/10/19 14 Not Available Not Available Not Available [facility] 100,000 unit/gram topical powder APPLY TO THE AFFECTED AREA(S) BY TOPICAL ROUTE qid 07/02 completed Not Available Not Available Not Available Halima 10 mcg/dose( 250 mcg/mL)2. 4 mL subcutane ous pen injector inject 1 millilit er by subcutan eous route 2 times a day 01/23 completed Halima 10 mcg/dose (250 mcg/mL) 2.4 mL subcutan eous pen injector ;comment : hold fo now;Rafal rded Status: Recorded on: 10/13/19 10 10:48AM; Disconti nued Status: Disconti nued on: 01/24/20 10 4:54PM;U ser: neuss;Es t. Completi on: 01/11/20 10;Indic ation: Type 2 Diabetes Mellitus Treatmen t Adjunct - () Not Available Not Available Not Available Halima 5 mcg/dose (250 mcg/mL)1. 2 mL subcutane ous pen injector inject 0.02 millilit er (5 mcg) by subcutan eous route 2 times per day before morning and evening meals 10/12 completed Byetta 5 mcg/dose (250 mcg/mL) 1.2 mL subcutan eous pen injector ;Recorde d Status: Recorded on: 09/09/19 10 4:09PM;D iscontin ued Status: Disconti nued on: 10/13/19 10 10:48AM; User: edna EstGuillermo Completi on: 12/08/19 10;Indic ation: Type 2 Diabetes Mellitus Treatmen t Adjunct - () Not Available Not Available Not Available Lyrica 100 mg capsule take 1 capsule (100 mg) by oral route 3 times per day 01/06 completed Lyrica 100 mg oral capsule; Recorded Status: Recorded on: 01/07/20 12 7:48PM;D iscontin ued Status: Disconti nued on: 01/07/20 12 7:50PM;U ser: luis eduardo;Hina t. Completi on: 05/03/19 13;Indic ation: Diabetic Peripher al Neuropat hy - () Not Available Not Available Not Available Motrin 800 tid w/food 02/06 completed motrin;R ecorded Status: Recorded on: 06/06/19 16 11:44AM; User: luis eduardo;In dication : - (-5) Not Available Not Available Not Available Levaquin one daily 11/10 completed levoquin 500 mg.;Rafal rded Status: Recorded on: 10/13/19 13 9:10PM;D iscontin ued Status: Disconti nued on: 11/11/19 13 2:55PM;U ser: [email or web address]; Est. Completi on: 10/18/19 13;Indic ation: pneumoni a - (-5) Not Available Not Available Not Available One Touch Ultra Test Strips use as directed tid 02/25 completed One Touch Ultra Test Strips;R ecorded Status: Recorded on: 02/26/20 13 2:05PM;D iscontin ued Status: Disconti nued on: 02/26/20 13 2:08PM;U ser: [email or web address];Anna st. Completi on: 08/25/19 14 Not Available Not Available Not Available FreeStyle Control test tid 12/27 completed FreeStyl e Control 250.02;R ecorded Status: Recorded on: 10/03/19 11 11:10AM; Disconti nued Status: Disconti nued on: 12/28/19 11 2:37PM;U ser: [email or web address]; Est. Completi on: 10/02/19 12;Indic ation: diabetes - (-5);Meg nted: 10/03/19 11 Not Available Not Available Not Available FreeStyle Test use as directed 2016 active FreeStyl e Test 250.02;R ecorded Status: Recorded on: 10/03/19 11 11:11AM; Disconti nued Status: Disconti nued on: 12/28/19 11 2:37PM;U ser: [email or web address]; Est. Completi on: 09/27/19 12;Indic ation: diabetes - (-5);Meg nted: 10/03/19 11 Not Available Not Available Not Available Glucomete r-M use tid, dx 250.02 10/08 completed Glucose monitor; Recorded Status: Recorded on: 01/08/20 12 1:39PM;U ser: [email or web address];I ndicatio n: - (-5);Meg nted: 01/08/20 12 Not Available Not Available Not Available Levemir U-100 Insulin 100 unit/mL subcutane ous solution 75 units q pm 08/11 completed Levemir 100 unit/mL subcutan eous solution ;Recorde d Status: Recorded on: 07/07/19 14 7:37PM;D iscontin ued Status: Disconti nued on: 08/12/19 14 8:28PM;U ser: neuss;Es t. Completi on: 08/06/19 14;Indic ation: Diabetes Mellitus , Type II - (250.00) Not Available Not Available Not Available Levemir FlexPen 100 unit/mL (3 mL) solution subcutane ous insulin pen inject by subcutan eous route: 60 units QHS for Dx: 250.02 05/18 completed Levemir Flexpen 100 unit/mL (3 mL) subcutan eous insulin pen;comm ent: started on the pump;Rec orded Status: Recorded on: 01/06/20 14 5:38PM;D iscontin ued Status: Disconti nued on: 05/18/19 15 5:47PM;U ser: stroopr Not Available Not Available Not Available amlodipin e 10 mg-benaze pril 40 mg capsule Take 1 capsule every day by oral route. 07/02 completed Not Available Not Available Not Available Insulin Syringe 1 mL 30 gauge x 5/16 use as directed 09/13 completed Insulin Syringe 1 mL 30 gauge x 5/16 miscella neous syringe; Recorded Status: Recorded on: 08/13/19 14 3:49PM;D iscontin ued Status: Disconti nued on: 09/14/19 16 5:57PM;U ser: neuss;Es t. Completi on: 02/09/20 14;Indic ation: Diabetes Mellitus , Type II - (250.00) Not Available Not Available Not Available Januvia 100 mg tablet take 1 tablet (100 mg) by oral route once daily for 30 days 09/13 completed Januvia 100 mg oral tablet;P rescribe Status: Prescrib ed on: 04/12/19 16 2:00PM;D iscontin ued Status: Disconti nued on: 09/14/19 16 5:57PM;U ser: [email or web address]; Est. Completi on: 10/09/19 16;Pharm acyVerif ied: 04/12/19 16 2:00PM Not Available Not Available Not Available Altabax 1 % topical ointment apply a thin layer by topical route 2 times per day to the affected area(s) 06/14 completed Altabax 1 % topical ointment ;Recorde d Status: Recorded on: 06/15/19 09 4:54PM;D iscontin ued Status: Disconti nued on: 06/15/19 09 4:59PM;U ser: gillisa; Indicati on: Impetigo - (12.6840 00) Not Available Not Available Not Available FreeStyle Lite Meter kit test tid-qid active Not Available Not Available No t Available FreeStyle Lite Strips USE 2 TIMES DAILY NEEDED 2024 active Not Available Not Available Not Avai lable Lanlaurynus Solostar U-100 Insulin 100 unit/mL (3 mL) subcutane ous pen inject by subcutan eous route: 60 units QHS active Not Available Not Available No t Available Bystolic 10 mg tablet take 1 tablet (10 mg) by oral route once daily 11/19 completed Bystolic 10 mg oral tablet;R ecorded Status: Recorded on: 09/16/19 15 12:05PM; Disconti nued Status: Disconti nued on: 11/20/19 15 12:17PM; User: luis eduardo;Es t. Completi on: 03/14/20 15;Indic ation: Hyperten arnel - () Not Available Not Available Not Available Bystolic 5 mg tablet take 1 tablet (5 mg) by oral route once daily for 30 days 05/20 completed Bystolic 5 mg oral tablet;c omment: per dennis;R ecorded Status: Recorded on: 07/09/19 12 2:20PM;D iscontin ued Status: Disconti nued on: 05/20/19 13 1:00PM;U ser: gored;Es t. Completi on: 08/08/19 12;Indic ation: Hyperten arnel - () Not Available Not Available Not Available Humalog KwikPen (U-100) Insulin 100 unit/mL subcutane ous Humalog pen 6 units per scale 10/09 completed Not Available Not Available Not Available Pen Needle 31 gauge x 3/16 use as directed 09/29 completed Pen Needle 31 gauge x 3/16 miscella neous needle;R ecorded Status: Recorded on: 09/30/19 11 3:33PM;D iscontin ued Status: Disconti nued on: 09/30/19 11 3:59PM;U ser: [email or web address]; Est. Completi on: 12/29/19 11 Not Available Not Available Not Available Onglyza 5 mg tablet take 1 tablet (5 mg) by oral route once daily 09/22 completed Onglyza 5 mg oral tablet;R ecorded Status: Recorded on: 12/07/19 11 5:03PM;D iscontin ued Status: Disconti nued on: 09/23/19 13 6:24PM;U ser: mable; Est. Completi on: 05/13/19 12;Indic ation: Type 2 Diabetes Mellitus - ();Prin tejinder: 09/06/19 13 Not Available Not Available Not Available Dulera 200 mcg-5 mcg/actua tion HFA aerosol inhaler inhale 2 puffs by inhalati on route 2 times per day in the morning and evening for 30 days 09/13 completed Dulera 200-5 mcg/actu ation inhalati on HFA aerosol inhaler; Prescrib e Status: Prescrib ed on: 11/20/19 15 12:22PM; Disconti nued Status: Disconti nued on: 09/14/19 16 5:57PM;U ser: [email or web address];Es t. Completi on: 05/18/19 16;Pharm acyVerif ied: 11/20/19 15 12:22PM Not Available Not Available Not Available Royce DM Cough and Chest one tsp qid 11/10 completed robituss in dm standard ;Recorde d Status: Recorded on: 10/13/19 13 9:10PM;D iscontin ued Status: Disconti nued on: 11/11/19 13 2:55PM;U ser: enrrique; Est. Completi on: 10/20/19 13;Indic ation: cough - (-5) Not Available Not Available Not Available Bydureon 2 mg subcutane ous extended release suspensio n inject 2 mg once by subcutan eous route every 7 days for 30 days 07/06 completed Bydureon 2 mg subcutan eous suspensi on,exten ded rel recon;Re corded Status: Recorded on: 03/24/20 13 1:31PM;D iscontin ued Status: Disconti nued on: 07/07/19 14 7:37PM;U ser: [email or web address]; Est. Completi on: 09/21/19 14;Indic ation: Diabetes Mellitus , Type II - (250.00) ;Printed : 03/24/20 13 Not Available Not Available Not Available Ultra Comfort Insulin Syringe (half unit) 0.3 mL 31 gauge x 5/16 07/02 completed Not Available Not Available Not Available Green Coffee Vital 400 mg capsule take 0.5 capsule by oral route daily 02/27 completed Green Coffee Vital 400 mg oral capsule; Recorded Status: Recorded on: 09/23/19 13 6:24PM;D iscontin ued Status: Disconti nued on: 02/28/20 13 12:21PM; User: [email or web address] Not Available Not Available Not Available Eliquis 5 mg tablet Take 1 tablet twice a day by oral route. active Not Available Not Available No t Available Invokana 300 mg tablet take 1 tablet (300 mg) by oral route once daily before the first meal of the day for 30 days 02/06 completed Invokana 300 mg oral tablet;P rescribe Status: Prescrib ed on: 06/10/19 16 9:04AM;U ser: neuss;Es t. Completi on: 12/07/19 16;Pharm acyVerif ied: 06/10/19 16 9:04AM Not Available Not Available Not Available desvenlaf axine ER 50 mg tablet,ex tended release 24 hr Take 1 tablet every day by oral route. active Not Available Not Available No t Available Farxiga 10 mg tablet Take 1 tablet every day by oral route. 07/02 completed Not Available Not Available Not Available Jardiance 25 mg tablet take 1 tablet (25 mg) by oral route once daily in the morning 09/13 completed Jardianc e 25 mg oral tablet;R ecorded Status: Recorded on: 06/06/19 16 11:44AM; Disconti nued Status: Disconti nued on: 09/14/19 16 5:57PM;U ser: neuss;Es t. Completi on: 12/03/19 16;Indic ation: Type 2 Diabetes Mellitus - (032500 00) Not Available Not Available Not Available Breo Ellipta 200 mcg-25 mcg/dose powder for inhalatio n Inhale 1 puff every day by inhalati on route. 07/02 completed Not Available Not Available Not Available Vraylar 3 mg capsule TAKE ONE (1) CAPSULE (3 MG) ORALLY DAILY active Not Available Not Available No t Available Dexcom G7 Entertainment Director DIRECTED active Not Available Not Available No t Available Dexcom G7 Sensor device APPLY ONE (1) SENSOR AND CHANGE EVERY 10 DAYS DIRECTED 2024 active Not Available Not Available Not Avai lable Ozempic 0.25 mg or 0.5 mg (2 mg/3 mL) subcutane ous pen injector INJECT 0.25 MG (0.368 ML) SUBCUTAN EOUSLY ONCE WEEKLY active Not Available Not Available No t Available Vitals Date Recorded Body weight Body mass index (BMI) Body height Heart rate Body temperature Oxygen saturation Oxygen saturation in Arterial blood by Pulse oximetry Respiratory rate Pain severity - 0-10 verbal numeric rating [Score] - Reported Systolic And Diastolic Provider Name and Address Organization Details Last Updated DateTime 5 220598. 33 g 56.5 kg/m2 167.64 cm 75 /min 97.5 [degF] 98 % 98 % 20 /min 0 150/84 mm[Hg] Marcia Maria [place] - [facility] 5 15:31:31 Date Recorded Body height Body temperature Heart rate Oxygen saturation Oxygen saturation in Arterial blood by Pulse oximetry Respiratory rate Systolic And Diastolic Provider Name and Address Organization Details Last Updated DateTime 5 167.64 cm 97.8 [degF] 82 /min 97 % 97 % 18 /min 154/86 mm[Hg] Kiana Turpin [place] - [facility] 5 14:44:53 Date Recorded Body height Body mass index (BMI) Body weight Body temperature Heart rate Oxygen saturation Oxygen saturation in Arterial blood by Pulse oximetry Respiratory rate Oxygen saturation Oxygen saturation in Arterial blood by Pulse oximetry Systolic And Diastolic Provider Name and Address Organization Details Last Updated DateTime 8 167.64 cm 54.2 kg/m2 486245. 04 g 98.4 [degF] 108 /min 96 % 96 % 18 /min 100 % 100 % 134/86 mm[Hg] Yissel Vogt [place] - [facility] 8 15:25:39 Date Recorded Pain severity - 0-10 verbal numeric rating [Score] - Reported Provider Name and Address Organization Details Last Updated DateTime 11/12/2017 0 Not Available [facility] 8 07:53:28 Date Recorded Body height Body mass index (BMI) Body weight Body temperature Heart rate Oxygen saturation Oxygen saturation in Arterial blood by Pulse oximetry Systolic And Diastolic Provider Name and Address Organization Details Last Updated DateTime 8 167.64 cm 55.2 kg/m2 809471. 59 g 99.1 [degF] 118 /min 96 % 96 % 138/84 mm[Hg] Kiana Villagranzackary [place] [facility] 8 15:00:58 Date Recorded Body height Body mass index (BMI) Body weight Heart rate Oxygen saturation Oxygen saturation in Arterial blood by Pulse oximetry Systolic And Diastolic Provider Name and Address Organization Details Last Updated DateTime 8 167.64 cm 56.7 kg/m2 048919. 92 g 84 /min 98 % 98 % 138/94 mm[Hg] Madeline Dayanna [facility] 8 13:11:34 Social History Question Answer Notes LastModified by [employer] ion Details LastModified Time Tobacco Smoking Status [facility] 07/02/2024 15:19:04 Able To Swim? No Information not available 02/07/2016 Do You Have An Advance Directive? No Information n ot available 02/07/2016 Do You Wear A Helmet When Biking? No Information not available 02/07/2016 Are You Blind Or Do You Have Difficulty Seeing? No Information n ot available 02/07/2016 Is Blood Transfusion Acceptable In An Emergency? Yes Information not available 07/02/2024 What Is Your Level Of Caffeine Consumption? Moderate Information not available 02/07/2016 How Much Tobacco Do You Chew? None Information not available 07/02/2024 In The 14 Days Before Symptom Onset, Have You Had Close Contact With A Laboratory-confirm ed COVID-19 While That Case Was Ill? No Information n ot available 07/02/2024 In The 14 Days Before Symptom Onset, Have You Had Close Contact With A Person Who Is Under Investigation For COVID-19 While That Person Was Ill? No Information not available 07/02/2024 Have You Been To An Area Known To Be High Risk For COVID-19? No Information not available 07/02/2024 Are You Deaf Or Do You Have Serious Difficulty Hearing? No Information not available 02/07/2016 What Type Of Diet Are You Following? REGULAR Information n ot available 02/07/2016 Which Illicit Or Recreational Drugs Have You Used? None Information not available 02/07/2016 Have You Processed Blood Or Body Fluids From An Ebola Virus Disease Patient Without Appropriate PPE? No Information not available 07/02/2024 Do You Reside In Or Have You Traveled To An Area Where Ebola Virus Transmission Is Active? No Information not available 07/02/2024 What Is The Highest Grade Or Level Of School You Have Completed Or The Highest Degree You Have Received? [id number] Information not available 07/02/2024 Swimming/diving No Informati on not available 02/07/2016 Have There Been Any Changes To Your Family Or Social Situation? No Information no t available 09/22/2024 When Did You Quit Smoking? 1-5yearssince lastcigarette Information not available 07/02/2024 Hard Of Hearing Or Deaf In One Or Both Ears? No Information not available 01/17/2016 Have You Recently Or Are You Planning To Travel To An Area With Zika Virus? No Information not available 07/02/2024 Legally Blind In One Or Both Eyes? No Information no t available 01/17/2016 Live Alone Or With Others? With Others Information not available 02/07/2016 What Was The Date Of Your Most Recent Tobacco Screening? 07/02/2024 Information not available 07/02/2024 How Many Children Do You Have? 2 Information not available 02/07/2016 Do You Use Protection During Sex? No Information not available 01/17/2016 Do You Use Protection Against STDs? Always Information not available 07/02/2024 What Is Your Relationship Status? Information not available 01/17/2016 Do You Use Your Seat Belt Or Car Seat Routinely? Yes Information not available 07/02/2024 Seat Belts Used Routinely Yes Information not available 02/07/2016 Are You Sexually Active? Yes Information not available 01/17/2016 Smoke Alarm In Home Yes Information not available 02/07/2016 Do You Have Smoke And Carbon Monoxide Detectors In Your Home? No Information not available 07/02/2024 At What Age Did You Start Smoking Tobacco? 29 Information not available 07/02/2024 Are You Passively Exposed To Smoke? No Information no t available 02/07/2016 How Much Tobacco Do You Smoke? No [email or web address] Information not available 12/19/2017 General Stress Level Medium Information not available 02/07/2016 Do You Use Sunscreen Routinely? No Information not available 02/07/2016 Has Tobacco Cessation Counseling Been Provided? No Information not available 07/02/2024 Do You Have Difficulty Walking Or Climbing Stairs? No Information not available 02/07/2016 Sex: Female Functional Status Question Answer Note LastModified by [employer] ion Details LastModified Time Do you or have you ever used smokeless tobacco? Never used smokeless tobacco Information not available 07/02/2024 Are you currently employed? No Information not available 02/07/2016 Do you have transportation difficulties? No Information not available 09/22/2024 Are you able to care for yourself independently? Yes Information not available 02/07/2016 Do you have difficulty dressing, bathing, grooming, or toileting? No Information not available 02/07/2016 Do you or have you ever used e-cigarettes or vape? Former user of electronic cigarettes Information not available 07/02/2024 What is your exercise level? Occasional Information not available 07/02/2024 Do you use any illicit or recreational drugs? No Information not available 07/02/2024 Do you or have you ever used any other forms of tobacco or nicotine? No Information not available 07/02/2024 What is your level of alcohol consumption? None Information not available 07/02/2024 Are you able to walk independently without assistance or assistive devices? YESWOREST Information not available 10/09/2016 Do you have difficulty doing errands alone? No Information not available 02/07/2016 What is your occupation? disability Information not available 02/07/2016 Mental Status Question Answer Note LastModified by Organizat ion Details LastModified Time Do you feel stressed (tense, restless, nervous, or anxious, or unable to sleep at night)? [id number] Information not available 07/02/2024 Do you have difficulty concentrating, remembering or making decisions? No Information no t available 02/07/2016 Family History Relationship Description Onset Age of this Age Resolved Age Notes LastModified by Organization Details LastModified Time Unspecified Relation Malignant neoplasm of breast Not available 2015 18:34:12 Unspecified Relation Kidney disease Not available 2015 18:35:49 Mother Type 2 diabetes mellitus [email or web address] Not available 2024 15:16:54 Father Hyperlipidem ia [email or web address] Not available 2024 15:16:54 Medical History Condition Response Anxiety Disorder Y Diabetes Y Muscle, Joint, or Bone Problems Y Obesity Y Arthritis Y Acid Reflux (GERD) Y Hyperlipidemia Y Kidney or Bladder Problems Y Depression Y Breast Problem Y Ovarian Cyst Y Sleep Apnea Y Neuropathy Y Hypertension Y Gynecological History Statement/Question Response Menses Monthly N Current Control Method Hysterectom y Date of Last Mammogram 07/14/2017 Most Recent Mammogram 07/14/2017 Obstetrics History GPAL:G 3 P 2 1 0 2 Type Value Full Term 2 Premature 1 Living 2 Total 3 Immunizations Vaccine Type Date Status Note Provider Name and Address Organization Details Recorded Time COVID-19, mRNA, LNP-S, PF, 100 mcg/0.5mL dose or 50 mcg/0.25mL dose 07/21/19 21 completed Not Available [facility] 09/22/2024 14:29:54 COVID-19, mRNA, LNP-S, PF, 100 mcg/0.5mL dose or 50 mcg/0.25mL dose 08/18/19 21 completed Not Available [facility] 09/22/2024 14:29:54 Influenza, split virus, quadrivalent, preservative 12/20/19 18 cancelled patient objection Not Available [facility] 04/11/2019 03:55:22 Past Encounters Encounter ID Performer Location Encounter Start Date Encounter Closed Date Diagnosis/Indication Diagnosis SNOMED-CT Code Diagnosis ICD10 Code Diagnosis IMO Codes Diagnosis Note [id number] Michelle Saenz [address] [place] [address] 02/07/2016 10:16:28 02/07/2016 11:38:08 Persistent microalbuminuria due to type 2 diabetes mellitus 451870566 R80.1 Autonomic neuropathy due to type 2 diabetes mellitus 125281524 E11.43 Body mass index 40+ - severely obese 987659619 Z68.43 Benign ess ential hypertension 3659183 I10 Upper resp iratory infection 79096243 J06.9 [id number] Carlos Dean MD [address] [place] [place] [address] 02/08/2016 15:38:25 02/10/2016 09:42:37 Depressive disorder 38394270 F32.9 Obesity 625683733 E66.9 Essential hypertension 11941318 I10 Sleep apnea 36817247 G47 .30 Microalbum inuric diabetic nephropathy 227725437 E11.21 Past pregn jonathon history of eclampsia 419187572 Z87.59 [id number] Apoorva Issa [address] [place] [address] 02/24/2016 13:29:18 02/24/2016 14:11:33 Flank pain 209941411 R10.9 Cough 34713293 R05 Allergic rhinitis 379423 04 J30.9 Candidiasis of vagina 72 718705 B37.3 [id number] Carlos Dean MD [address] [place] [address] 04/10/2016 11:22:29 04/10/2016 13:09:46 Fracture of foot 61391298 S92.902A Hernia of abdominal wall 453289609 K43.6 Diabetes mellitus 027810 09 E11.40 Essential hypertension 25561530 I10 [id number] Carlos Dean MD [address] [place] [address] 05/14/2016 16:51:17 05/15/2016 08:09:10 Essential hypertension 70988206 I10 Uncontroll ed type 2 diabetes mellitus 328614391 E11.65 Urinary incontinence 165 316173 R32 Benign ess ential hypertension 7702265 I10 Chronic ab dominal pain 859820980 R10.9 Depressive disorder 3548 9007 F32.9 Obesity 214050700 E66.9 Diabetes mellitus 491511 09 E11.40 Noncomplia nce with medication regimen 876779466 Z91.14 Fracture of foot 0611494 5 S92.902A Renewal of prescription 777636317 Z76.0 [id number] Carlos Dean MD [address] [place] [address] 07/03/2016 17:11:54 07/05/2016 07:57:16 Chronic abdominal pain 958514765 R10.9 Microalbum inuric diabetic nephropathy 197572749 E11.21 Uncontroll ed type 2 diabetes mellitus 860170734 E11.65 [id number] Carlos Dean MD [address] [place] [address] 10/08/2016 14:11:45 10/08/2016 16:02:09 Uncontrolled type 2 diabetes mellitus 006456404 E11.65 [id number] Michelle Saenz APRN [address] [place] [address] 10/09/2016 12:54:14 10/09/2016 14:28:17 Persistent microalbuminuria due to type 2 diabetes mellitus 946772832 R80.1 Autonomic neuropathy due to type 2 diabetes mellitus 309968815 E11.43 Body mass index 40+ - severely obese 774441417 Z68.43 Benign ess ential hypertension 3358879 I10 Noncomplia nce with medication regimen 583863053 Z91.14 Noncomplia nce with treatment 7804480 Z91.19 [id number] Carlos Dean MD [address] [place] [address] 11/09/2016 15:53:52 11/09/2016 19:54:44 Diabetes mellitus 67608452 E11.40 Essential hypertension 69435116 I10 Depressive disorder 3548 9007 F32.9 Nausea 621363553 R11.0 [id number] Michelle Saenz APRN [address] [place] [address] 11/27/2016 14:26:18 11/27/2016 15:16:07 Uncontrolled type 2 diabetes mellitus 907155549 E11.65 Persistent microalbuminuria due to type 2 diabetes mellitus 261775523 R80.1 Autonomic neuropathy due to type 2 diabetes mellitus 401475695 E11.43 Body mass index 40+ - severely obese 623788477 Z68.43 Benign ess ential hypertension 5204164 I10 Noncomplia nce with medication regimen 751564177 Z91.14 Noncomplia nce with treatment 3423309 Z91.19 [id number] Carlos Dean MD [address] [place] [address] 02/04/2017 08:44:57 02/04/2017 10:33:39 Body mass index 40+ - severely obese 770291074 Z68.43 Uncontroll ed type 2 diabetes mellitus 881336259 E11.65 Abdominal pain 30547248 R10.9 Nausea 126125727 R11.0 Renewal of prescription 855674904 Z76.0 Essential hypertension 09000164 I10 Depressive disorder 3548 9007 F32.9 Autonomic neuropathy due to type 2 diabetes mellitus 919440953 E11.43 [id number] Carlos Dean MD [address] [place] [address] 03/11/2017 13:39:12 03/11/2017 15:53:33 Chronic abdominal pain 895544444 R10.9 Diabetes mellitus 323076 09 E11.9 [id number] Carlos Dean MD [address] [place] [address] 03/26/2017 14:46:26 03/26/2017 16:51:34 Chronic abdominal pain 120525391 R10.9 Essential hypertension 88284597 I10 Body mass index 40+ - severely obese 697676975 Z68.43 Ventral in cisional hernia 921828342 K43.2 [id number] Carlos Dean MD [address] [place] [address] 05/07/2017 14:40:31 05/07/2017 16:35:54 Essential hypertension 94679344 I10 Diabetes mellitus 974553 09 E11.9 Upper resp iratory infection 13918692 J06.9 Autonomic neuropathy due to type 2 diabetes mellitus 160342622 E11.43 Influenza- like symptoms 347722396 R68.89 Cough 20091201 R05 Depressive disorder 3548 9007 F32.9 [id number] Carlos Dean MD [address] [place] [address] 05/15/2017 10:53:54 05/15/2017 12:28:21 Essential hypertension 96274166 I10 Persistent cough 9248663 02 R05 Upper resp iratory infection 92725661 J06.9 Hemoptysis 64161438 R04. 2 [id number] Carlos Dean MD [address] [place] [address] 05/24/2017 13:09:19 05/24/2017 14:40:26 Essential hypertension 91141050 I10 Noncomplia nce with medication regimen 235163665 Z91.14 Diabetes mellitus 947416 09 E11.9 Anxiety 12170455 F41.9 [id number] Michelle Saenz APRN [address] [place] [address] 06/05/2017 12:25:09 06/05/2017 14:51:06 Microalbuminuric diabetic nephropathy 729210189 E11.21 Persistent microalbuminuria due to type 2 diabetes mellitus 718836537 R80.1 Autonomic neuropathy due to type 2 diabetes mellitus 699567132 E11.43 Body mass index 40+ - severely obese 922797936 Z68.43 Benign ess ential hypertension 3243948 I10 Noncomplia nce with medication regimen 636923571 Z91.14 Noncomplia nce with treatment 3348231 Z91.19 Mixed hyperlipidemia 267 010186 E78.2 Fatigue 21473072 R53.83 Vitamin D deficiency 347 46156 E55.9 Cobalamin deficiency 190 658433 E53.8 [id number] Carlos Dean MD [facility] [address] [place], [place] [address] [place] [address] 06/07/2017 13:41:47 06/07/2017 15:17:58 Chronic abdominal pain 295944722 R10.9 Essential hypertension 69012767 I10 Diabetes mellitus 414567 09 E11.9 Acne 68070918 L70.9 [id number] Galileo Gavin MD [address] [place] [address] 06/20/2017 13:44:03 06/20/2017 15:28:16 [id number] Michelle Saenz [address] [place] [address] 06/25/2017 14:02:47 06/25/2017 14:55:57 [id number] Michelle Saenz [address] [place] [address] 2017 13:23:53 2017 18:02:35 Microalbuminuric diabetic nephropathy 679640584 E11.21 Persistent microalbuminuria due to type 2 diabetes mellitus 763078742 R80.1 Autonomic neuropathy due to type 2 diabetes mellitus 769422606 E11.43 Body mass index 40+ - severely obese 127727246 Z68.43 Benign ess ential hypertension 1134611 I10 Mixed hyperlipidemia 267 467879 E78.2 Vitamin D deficiency 347 41936 E55.9 Loss of hy poglycemic warning due to diabetes mellitus 823028127 R44.8 [id number] Carlos Dean MD [facility] [address] [place], [place] [address] [place] [address] 07/05/2017 12:57:00 07/05/2017 14:29:08 Essential hypertension 66940217 I10 Uncontroll ed type 2 diabetes mellitus 808171895 E11.65 Edema 174300923 R60.9 Dyspnea at rest 92717712 7 R06.00 [id number] Carlos Dean MD [address] [place] [address] 08/02/2017 14:32:35 08/02/2017 16:05:16 Pain of wrist region 49647778 M25.531 Heart cath via radial on 07/31/17 Body mass index 40+ - severely obese 752352984 Z68.43 [id number] Michelle Saenz [employer] [address] [place] [address] 11/04/2017 16:37:24 11/04/2017 17:46:24 Microalbuminuric diabetic nephropathy 666548823 E11.21 Persistent microalbuminuria due to type 2 diabetes mellitus 825575841 R80.1 Autonomic neuropathy due to type 2 diabetes mellitus 622969106 E11.43 Body mass index 40+ - severely obese 043423687 Z68.43 Benign ess ential hypertension 6759093 I10 Mixed hyperlipidemia 267 641442 E78.2 Vitamin D deficiency 347 99907 E55.9 Loss of hy poglycemic warning due to diabetes mellitus 812508624 R44.8 Acne 47020044 L70.9 [id number] Carlos Dean MD [address] [place] [address] 11/08/2017 15:49:32 11/08/2017 20:36:20 Chronic abdominal pain 669936812 R10.9 Diabetes mellitus 105487 09 E11.9 Essential hypertension 00457063 I10 Hypoxia 227064957 R09.02 [id number] Carlos Dean MD [address] [place] [address] 11/12/2017 15:04:08 11/12/2017 18:31:59 Obesity 741460063 E66.9 Asthma 336518844 J45.90 9 Infection of tooth 85060 8007 K04.7 [id number] Chelsy Mclean APRN [address] [place] [address] 11/27/2017 14:48:29 11/27/2017 16:59:20 Acne 67840797 L70.9 Pruritic disorder 954147 002 L29.9 [id number] Apoorva Issa [facility] [address] [place] [address] 12/19/2017 12:33:05 12/19/2017 14:01:18 Immunization refused 809918280 Z28.9 Cough 98836326 R05 Depressive disorder 3548 9007 F32.9 Dysphagia 23008921 R13.1 0 Gastroesop hageal reflux disease 988310141 K21.9 [id number] Jozef Ramirez APRN [address] [address] 07/02/2024 15:13:01 07/02/2024 16:42:58 Morbid obesity 336188975 E66.01 33808694 bmi 56.5 Insulin tr eated type 2 diabetes mellitus 110237102 E11.59 Z79.4 80042267 continue pump as ordered [id number] Jozef Ramirez [address] [address] 09/22/2024 14:28:54 09/22/2024 15:48:54 Diabetes mellitus 32614565 E11.9 Medical eq uipment or device education 006980149 Z46.81 [id number] omnipod training completedp t understand s no questions at this timesee scanned orders Health Concerns Section Related Observation LastModified by Organization Detai ls LastModified Time None Recorded Concern Status LastModified by Organization Details LastModified Time None Recorded Advance Directives Directive N: Payers Insurance Date Sequence Insurance Name Policy Number Policy Martinez Covered Member ID Martinez Member ID Guarantor Name 07/02/2024 2 [facility] (MEDICAID HMO) Eliz Stien [id number] Eliz Stien 12/23/2024 [place] [facility] [place]ICAID[place] Eliz Stien [id number] Eliz Stien 09/23/2024 1 [facility] (MEDICAID REPLACEMENT - HMO) Eliz Stien [id number] Eliz Stien 09/23/2024 1 [facility] (MEDICAID REPLACEMENT - HMO) Eliz L Stien [id number] Eliz Maldonado 2024 [place] [facility] WRAP BILLING (MEDICAID) Eliz Stien [id number] Eliz Stimarshall 12/23/2024 1 [place] CHO[place] - FFS/TRADITIONA L Eliz Milesen [id number] Eliz Maldonado 05/19/2016 1 UNSPECIFIED REMIT PAYOR Eliz Maldonado 2024 [place] [facility] [place]ILLING (MEDICAID) Eliz Maldonado [id number] Eliz Maldonado Notes Date Note Type Note Provider Name and Address Organization Details Recorded Time 11/12/2017 text/html EdemaReported by PatientHPIFor quality, patient reportslegs do not swell equally. For context, patient reportsprior history of edemaanddiet high in salt. For associated symptoms, patient reportsshortness of breathandshortness of breath during exertion. For severity, patient reportsmild. For duration, patient reportsconstant. For modifying factors, patient reportsnothing gives relief. shortness of breath with activity but spo2 100% Lesli brady, [place] - [facility] 11/13/2017 17:50:05 11/27/2017 text/html Eliz is a 42 year old patient who presents to Dermatology today for facial acne. It has started breaking out just 6-7 months ago. She has not had any previous issues during childhood or adult years. She has used the same soap without any changes. She relays that some products seem to help, but then the acne comes right back.She has an additional concern that her skin often itches. Chelsy Mclean, [employer] [address], [place], [address], [place] - [facility] 11/27/2017 16:07:42 12/19/2017 text/html pt has c/o increased SOB, was seen at [facility] ER for bilateral leg edema pt uses 2 Liters of O2 at night reports difficulty swallowing- time unknown. everything is aggravating it.asking for refills on Fluoxetine Apoorva brady, [place] - [facility] 12/19/2017 14:02:34 07/02/2024 text/html Diabetes F/URepo rted by PatientHPIFor review finger sticks, patient reportsfastin. For context, patient reportsnormal range of home blood sugars (in the low 100s),seeing eye doctor regularly, andchecking feet regularly. For associated symptoms, patient reportsno weight gain,no weight loss,no dizziness,no sweats,no headaches,no confusion,no increased thirst,no increased appetite,no increased urination,no blurred vision,no numbness of feet, andno calluses on feet. 49 yr old female presents for diabetes. she has an insulin pump/[employer]. unsure of her last a1c. pt states pump was set up 2 days ago and she is doing well. pt states she has had a pump in the past and done well Jozef Ramirez APRN [address], [place], [address], [place] - [facility] 07/02/2024 16:58:57 09/22/2024 text/html 49 year old female who presents to the office today for a follow up ondiabetes omnipod training- had omnipod dash over 5 yrs ago and wants to restart omnipodhas concerns of sore on left lower leg Jozef Ramirez APRN [address], [place], [address], [place] - [facility] 09/22/2024 17:58:20 OBGyn Episode No OBEpisode recorded.
--- OUTSIDE RECORDS SUMMARY | 2025-02-02 18:24 | XMS_ITS | Clinical Summary ---
Author Organization [facility] [id number] Address [address] [facility] [facility], [address] [place] [address] Care Team Providers Care Horse Identifier Name Role Phone Carlos Dean MD Primary Care Provider [phone] Allergies No known active allergies Medications amLODIPine (NORVASC) 10 mg Oral Tablet Take 10 mg by mouth daily. Active multivitamin (THERAGRAN) Oral Tablet Take 1 Tab by mouth daily. Active potassium chloride (K-DUR) 10 mEq Oral Tablet Sustained Release Take 10 mEq by mouth daily. Active hydrALAZINE (APRESOLINE) 50 mg Oral Tablet Take 50 mg by mouth 4 times daily. Active hydroCHLOROthia zide (HYDRODIURIL) 25 mg Oral Tablet Take by mouth. Activ e traZODone (DESYREL) 150 mg Oral Tablet 10/07/19 25 Active hydrALAZINE (APRESOLINE) 100 mg Oral Tablet 10/27/19 25 Active fUROsemide (LASIX) 40 mg Oral Tablet 11/29/19 25 Active ELIQUIS 5 mg Oral Tablet Take 1 tablet twice a day by oral route. Active atorvastatin (LIPITOR) 40 mg Oral Tablet Take 40 mg by mouth nightly. at bedtime Active DEXCOM G7 SENSOR Misc Device 12/05/19 25 Active HYDROcodone-opal taminophen (NORCO) 5-325 mg Oral Tablet Take 1 tablet 3 times a day by oral route as needed. Active hydrOXYzine (ATARAX) 25 mg Oral Tablet Take 1 tablet every 6 hours by oral route as needed. Active metoprolol succinate ER (TOPROL-XL) 100 mg Oral Tablet Sustained Release 24 hr 12/16/19 25 Active meclizine (ANTIVERT) 25 mg Oral Tablet Take 1 tablet 3 times a day by oral route as needed. Active losartan (COZAAR) 100 mg Oral Tablet Take 1 tablet every day by oral route. Active FREESTYLE LANCETS 28 gauge Misc Misc 10/21/19 25 Active HUMULIN R U-500, CONC, KWIKPEN 500 unit/mL (3 mL) SubQ Insulin Pen Inject 140 Units under the skin 2 times daily. 12/05/19 25 Active desvenlafaxine 50 mg Oral Tablet Sustained Release 24 hr Take 1 tablet every day by oral route. Active pantoprazole (PROTONIX) 40 mg Oral Tablet, Delayed Release (E.C.) Take 1 Tablet by mouth 2 times daily. For 1 month only 60 Tablet 01/21/20 25 Active lisinopril (PRINIVIL;ZESTR IL) 40 mg tablet Take 40 mg by mouth 2 times daily. Discontinued (Stop Taking at Discharge) FLUoxetine (PROZAC) 20 mg Oral Capsule Take 40 mg by mouth daily. Discontinued (Removed During Admission Medication Review) traZODone (DESYREL) 100 mg Oral Tablet Take 100 mg by mouth nightly. Discontinued (Stop Taking at Discharge) albuterol (PROVENTIL) 2.5 mg /3 mL (0.083 %) Inhl Solution for Nebulization Take 2.5 mg by nebulization every 6 hours as needed for Wheezing. Discontinued (Stop Taking at Discharge) insulin lispro (HUMALOG KWIKPEN INSULIN) 100 unit/mL SubQ Insulin Pen Subcutaneous (Inject under the skin) 0-12 Units 3 times daily (with meals). 1 Each 08/20/19 Discontinued (Stop Taking at Discharge) Insulin glargine (LANTUS) 100 unit/mL (3 mL) SubQ Insulin Pen Subcutaneous (Inject under the skin) 100 Units every evening. Discontinued (Stop Taking at Discharge) oxyCODONE (ROXICODONE) 5 mg Oral Tablet 12/01/19 22 025 Discontinued (Stop Taking at Discharge) dilTIAZem 180 mg Oral Capsule, Sust. Release 24 hr 12/27/19 22 025 Discontinued (Stop Taking at Discharge) dilTIAZem 300 mg Oral Capsule, Sust. Release 24 hr 10/07/19 25 025 Discontinued (Stop Taking at Discharge) insulin aspart, niacinamide, 100 unit/mL (3 mL) SubQ Cartridge 7 units ac 025 Discontinued (Stop Taking at Discharge) Active Problems Problem Noted Date Diagnosed Date CKD (chronic kidney disease) 01/20/2025 Assessment & Plan (01/20/2025 8:54 AM EDT): -Renal function overall stable -Avoid nephrotoxic agents as able S/P ablation of atrial flutter 01/20/2025 Overview (01/20/2025): 01/19/25 Successful PVI for PAF, Successful CTI line for typical atrial flutter with TCL 250 msec, Right jae line by Dr. Hilliard Status post ablation of atrial fibrillation 12/24 Overview (01/20/2025): 01/19/25 PVI for PAF, Successful CTI line for typical atrial flutter with TCL 250 msec, Right jae line by Dr. Hilliard Assessment & Plan (01/20/2025 8:54 AM EDT): -s/p ablation with 3D mapping 01/19 -toproxl XL -Eliquis -Management per EP A-fib 01/19/2025 Paroxysmal atrial fibrillation 01/04/2025 Assessment & Plan (01/20/2025 8:54 AM EDT): -s/p ablation with 3D mapping 01/19 -toproxl XL -Eliquis -Management per EP Depressive disorder 12/31/2024 Assessment & Plan (01/20/2025 8:54 AM EDT): -Continue pristiq CKD (chronic kidney disease) stage 1, GFR 90 ml/min or greater 05/18/2021 Sleep apnea, obstructive 10/21/2018 Assessment & Plan (01/20/2025 8:54 AM EDT): -Unable to tolerate mask Diabetic retinopathy 05/26/2018 Morbid obesity with BMI of 50.0-59.9, adult 10/2017 Assessment & Plan (01/20/2025 8:54 AM EDT): -Complicates all aspects of care Chronic RLQ pain 04/02/2017 Hyperlipidemia 12/10/2016 Assessment & Plan (01/20/2025 8:54 AM EDT): -Statin Chronic abdominal pain 05/15/2016 Migraine headache 07/12/2015 Recurrent episodes of unresponsiveness 6 Essential hypertension 07/06/2015 Assessment & Plan (01/20/2025 8:54 AM EDT): -BP stable 134/74 -Continue norvasc, HCTZX, cozaar, toprol xl Diabetes mellitus 07/06/2015 Assessment & Plan (01/20/2025 8:54 AM EDT): -Uncontrolled -A1c 8.9 -Reports regimen has recently been adjusted over past two months. Has been taking U500 140U bid for about two months, typically runs BG 200s. Noted occasional low when bumped up to 150U bid. -Last dose of insulin/U500 was AM 01/18 -Resume U500 at slightly lower dose 120U bid. Patient is hopeful to return home this date and resume as prescribed. -Change to carb controlled diet -Close monitoring of BG and follow up with provider on discharge discussed Tobacco abuse 07/06/2015 [place] 12/30/2012 Type 2 diabetes mellitus without complication Resolved Problems Problem Noted Date Diagnosed Date Resolved Date Chest pain at rest 10/21/2018 Bilateral lower extremity edema 10/21/2018 12/31/2024 Low back pain at multiple sites 04/02/2017 12/31/2024 Abnormal EEG 07/12/2015 12/31/2024 Recurrent ventral hernia 03/29/2015 Tenosynovitis, de Quervain 12/09/2012 1 Chest pain, precordial 12/31 Encounters Date Type Department Care Team Description 01/19/2025 12:18 PM EDT Anesthesia Event [facility] [place] [address] Ekaterina Abraham MD Salyer, Corey L, BUNDLE WRAPPER 01/19/2025 11:25 AM EDT - 01/19/2025 1:50 PM EDT Surgery [facility] SEWING MACHINIST [facility] [address] [place], [place] [id number] Michael Hilliard MD PAROXYSMAL ATRIAL FIBRILLATION ABLATION WITH 3D MAPPING 01/19/2025 9:33 AM EDT - 01/20/2025 12:50 PM EDT [place] [address] Michael Hilliard MD Paroxysmal atrial fibrillation (HCC) Discharge Disposition: Home or Self Care 01/19/2025 Travel 01/04/2025 Orders Only [facility] [address] [place] [address] [place] [phone] Michelle Bull APRN Paroxysmal atrial fibrillation (HCC) (Primary Dx) 01/04/2025 Telephone [facility] [address] [place] [address] [place] [phone] Michael Hilliard MD Procedure (Pre Procedure Instructions) 12/31/2024 2:00 PM EDT Office Visit [facility] [address] [place] [address] [place] [phone] Michael Hilliard MD Atrial fibrillation, unspecified type (HCC) (Primary Dx) 12/28/2024 Telephone [facility] [address] [place] [address] [place] [phone] Clare Cardenas, Clerical Staff Appointment Needed (DIRECTOR ACCOUNT MANAGEMENT appt ref by Dr. Selvin Bain) from Last 3 Months Immunizations Immunization Administration Dates Next Due Pneumococcal Polysaccharide 23 Valent (Deferred: Patient Refused - PER PATIENT) Surgical History Surgery Date Site/Laterality Comments CHOLECYSTECTOMY HYSTERECTOMY SECTION x2 APPENDECTOMY OVARY REMOVAL VENTRAL HERNIA REPAIR 04/04/2015 Abdomen/N/A DAVINCI ROBOTIC ASSISTED RECURRENT VENTRAL HERNIA REPAIR WITH MESH; Surgeon: Africa Gee MD; Location: [facility] MAIN OR; Service: General Medical devices from this surgery are in the Medical Devices section. ERCP ABLATION OF DYSRHYTHMIC FOCUS 01/19/2025 PVI for PAF Successful CTI line for typical atrial flutter with TCL 250 msec Right jae line by Dr. Hilliard Medical History Medical History Date Comments Unspecified [...] hard 01/20/2025 [facility] [place] of Occupat ional Health - Occupational Stress [...] money to get more. Never true 01/20/2025 [facility] Utilities Answer Date Recorded In the past 12 months has th e electric, gas, oil, or water company threatened to shut off services in your home? No 01/20/2025 [facility] IP Transportation Answer D ate [...] Mass Index 56.85 01/19/2025 5:22 PM EDT Plan of Treatment Upcoming Encounters Date Type Department Care Team (Late st Contact Info) Description 03/08/2025 2:00 PM EST Office Visit [facility] [address] [facility] [address] [place] [address] Michelle Bull APRN [address] [place] [address] Health Maintenance Due Date Last Done Comments [...] 06/27/2019 Virtual Colonography 06/27/2019 Lipids 10/22/2019 10/21/2018 Zoster (1 of 2) 2024 COVID-19 Vaccine (3 - 2024- season) 2024 08/17/2020, 07/20/2020 Influenza Vaccine (#1) 2024 Hemoglobin A1c 07/21/2025 01/20/2025, 07, 10/21/2018 Kidney Health: eGFR 01/20/2026 01/20/2025, 01/19/2025, 12/04/2023, Additional history exists Meningococcal B Vaccine Aged Out No l onger eligible based on patient's age to complete this topic Medical Devices Implanted Type Area Superintendent Quarry Device Identifier Shelf Expiration Date Model / Serial / Lot Matrix Tissue Strattice 6cm X 10cm [facility] - [id number] Implanted:Qty: 1 on 12/09/2009 at [facility] Abdomen LIFECELL 09/22/2010 [id number] / / [id number] Mesh Marlex 6 X 6 #[id number] - [id number] Implanted:Qty: 1 on 04/04/2015 by Africa Gee MD at [facility] N/A: Abdomen CR BARD:DAVOL 12/22/2018 [id number] / / [id number] Procedures Procedure Name Priority Date/Time Associated Diagnosis Comments GLUCOSE METER POC Routine 01/20/2025 10:20 AM EDT ECG AND WAVEFORMS - TELEMETRY Routine 01/20/2025 7:26 AM EDT CBC WITH DIFF Routine 01/20/2025 7:02 AM EDT BASIC METABOLIC PANEL Routine 01/20/2025 7:02 AM EDT HEMOGLOBIN A1C Routine 01/20/2025 7:02 AM EDT GLUCOSE METER POC Routine 01/20/2025 4:30 AM EDT GLUCOSE METER POC Routine 01/20/2025 3:05 AM EDT GLUCOSE METER POC Routine 01/20/2025 12:56 AM EDT GLUCOSE METER POC Routine 01/19/2025 11:36 PM EDT IP CONSULT TO HOSPITALIST Routine 01/19/2025 11:20 PM EDT Procedure Note - Bg Garcia DO - 01/20/2025 8:37 AM EDTThis note is in progress. [facility] Consult Note Name: Eliz Daniels : [...] consulted for hyperglycemia. She reports that she [id number] 140U bid with BG that typically run [...] EK EKG 12 LEAD Result Date: 01/20/2025 [place]:2025[place] Pat [facility]: [facility] Department: DEPIDPatient ID: [id number] Room: [facility] Gender:Female Filtering Machine Tender: HEIDY : [id number] By: MICHAEL Juarez Order Number: [id number] MD: Zackery Mcgraw MeasurementsIntervals [place] Rate: 84P: 64 IA: 180QRS: -12 QRSD: 89 T: 59QT: 402 QTc: 476InterpretiveStatements SINUS RHYTHM PRWP NONSPECIFIC T-WAVE ABNORMALITY ElectronicallySigned On 01-20-2025 08:39:51 EDT by Zackery Mcgraw Results for orders placed during the hospital encounter of 01/19/25 EK EKG 12 LEAD Impression [place] Test Date: 2025-01-19 [facility] Department: DEPID Room: [facility] Gender: Female Filtering Machine Tender: HEIDY : 1975 Requested By: MICHAEL TIMMY N Order Number: [id number] Reading MD: Zackery Mcgraw Measurements Intervals [place] Rate: 84 P: 64 IA: 180 QRS: -12 QRSD: 89 T: 59 [...] Morbid obesity with BMI of 50.0-59.9, adult ([facility]) Hyperlipidemia Diabetes mellitus ([facility]) Essential hypertension Admission Assessment and Plan: Assessment [...] Morbid obesity with BMI of 50.0-59.9, adult ([facility]) -Complicates all aspects of care Sleep apnea, [...] ER (TOPROL-XL) 100 mg Oral Tablet Sustained [id number] hr multivitamin (THERAGRAN) Oral Tablet Take 1 [...] High Risk (09/26/2021) [facility] [employer] [facility] 1.0 Has lack of transportation kept [...] EDT ADMIT Routine 01/19/2025 12:45 PM EDT INTRAOP AIRWAY PLACEMENT Routine 01/19/2025 12:44 PM EDT BASIC METABOLIC PANEL Routine 01/19/2025 10:48 AM EDT Paroxysmal atrial fibrillation (HCC) CBC WITH DIFF Routine 01/19/2025 10:48 AM EDT Paroxysmal atrial fibrillation (HCC) POCT EKG Routine 12/31/2024 2:19 PM EDT Atrial fibrillation, unspecified type (HCC) LIPID SCREEN Routine 10/21/2018 5:57 AM EDT from Last 3 Months or Most Recently Relevant to Health Maintenance Results * (ABNORMAL) GLUCOSE METER POC (01/20/2025 10:20 AM EDT) Only the most recent of7 resultswithin the time period is included. Glucose Meter POC 315(H) 70 - 100 mg/dL 01/20/2025 10:22 AM EDT [facility] Sample Type Capillary 01/20/2025 10:22 AM EDT [facility] Patient Status Non-Critical Patient 01/20/2025 10:22 AM EDT [facility] Blood BLOOD SPECIMEN / Unknown 01/20/2025 10:20 AM EDT 01/20/2025 10:22 AM EDT us Michael Hilliard MD POINT OF CARE TEST ORDERABLES Fi nal Result Performing Organization Address [facility]/ZIP Co de Phone Number [facility] [address] [place] [address] * ECG AND WAVEFORMS - TELEMETRY (01/20/2025 7:26 AM EDT) Only the most recent of3 resultswithin the time period is included. [facility] ECG INTERPRET NSR [facility] 01/20/2025 7:26 AM EDT Narrative [facility] - 01/20/2025 7:31 AM EDT ROUTINE (BS) IA 0.19 QRS 0.08 RR 0.82 QT 0.44 QTc 0.49 See Clinical Report link for waveform capture us Unknown Provider POINT OF CARE CARDIOLOGY Final Result Performing Organization Address City/[facility]/ZIP Co de Phone Number [facility] [address] [place] [address] * (ABNORMAL) CBC WITH DIFF (01/20/2025 7:02 AM EDT) Only the most recent of2 resultswithin the time period is included. WBC 13.9(H) 3.7 - 10.3 x10(3)/mcL 01/20/2025 [...] 7:29 AM EDT [facility] [place] Percent 7.1 % 01/20/2025 7:29 AM EDT [facility] Eos Percent 0.1 % 01/20/2025 7:29 AM EDT [facility] Baso Percent 0.4 % 01/20/2025 7:29 AM EDT [facility] [place] Neut # 11.6(H) 1.6 - 6.1 x10(3)/mcL 01/20/2025 7:29 AM EDT [facility] [place] Comment:Neutrophils equals s egs plus bands IMMGRAN# 0.1 0.0 - 0.1 x10(3)/mcL 01/20/2025 7:29 AM EDT [facility] Comment:Automated count of m etamyelocytes, myelocytes and promyelocytes. An absolute IG <0.1 is reported as 0.0. Lymph # 1.1(L) 1.2 - 3.9 x10(3)/mcL 01/20/2025 7:29 AM EDT [facility] [place], [facility] Osborne # 1.0(H) 0.3 - 0.9 x10(3)/mcL 01/20/2025 7:29 AM EDT [facility] [place] Eos# 0.0 0.0 - 0.5 x10(3)/mcL 01/20/2025 7:29 AM EDT [facility] [place], [facility] Baso # 0.1 0.0 - 0.1 x10(3)/mcL 01/20/2025 7:29 AM EDT [facility] [place], [facility] Blood VENOUS BLOOD / Unknown Venipuncture / Unknown 01/20/2025 7:02 AM EDT 01/20/2025 7:14 AM EDT us Bg Garcia DO HEMATOLOGY ORDERABLES Final Result [facility] [place] [address] [facility] [facility] , [place] [address] * (ABNORMAL) HEMOGLOBIN A1C (01/20/2025 7:02 AM EDT) Hgb A1C 8.9(H) 4.2 - 5.6 % 01/20/2025 7:52 AM EDT [facility] [place] Est. Avg Glucose 209 mg/dL 01/20/2025 7:52 AM EDT [facility] [place] Blood VENOUS BLOOD / Unknown Venipuncture / Unknown 01/20/2025 7:02 AM EDT 01/20/2025 7:14 AM EDT Narrative [facility] - 01/20/2025 7:52 AM EDT REFERENCE RANGE: [...] ORDERABLES Final R esult [facility], [facility] [address] [facility] , [place] [address] * (ABNORMAL) BASIC METABOLIC PANEL (01/20/2025 7:02 AM EDT) Only the most recent of2 resultswithin the time period is included. Sodium 134(L) 136 - 145 mmol/L 01/20/2025 [...] mL/min/1.7 3 m2 01/20/2025 8:02 AM EDT [facility] Comment:Estimated GFR was ca lculated using the CKD-EPIcr (2020) equation refit without race. The equation is recommended by the National Kidney Foundation - [place] [employer] of Nephrology Task Force. Blood VENOUS BLOOD / Unknown Venipuncture / Unknown 01/20/2025 7:02 AM EDT 01/20/2025 7:14 AM EDT us Bg Garcia DO CHEMISTRY ORDERABLES Final R esult [facility] [address] [facility] , [place] [address] * EK EKG 12 LEAD (01/19/2025 3:32 PM EDT) Anatomical Region Laterality Modality Electrocardiogra phy 01/19/2025 3:39 PM EDT Impressions 01/20/2025 8:[address] [facility] Test Date: 2025-01-19 Pat Name: ELIZ DANIELS Department: DEPID Room: [facility] Gender: Female Filtering Machine Tender: HEIDY : 1975 Requested By: MICHAEL Juarez Order Number: [id number] Gladys MD: Zackery Mcgraw Measurements Intervals [place] Rate: 84 P: 64 IA: 180 QRS: -12 QRSD: 89 T: 59 QT: 402 QTc: 476 Interpretive Statements SINUS RHYTHM PRWP NONSPECIFIC T-WAVE ABNORMALITY Electronically Signed On 01-20-2025 08:39:51 EDT by Zackery Mcgraw Narrative Procedure Note Zackeyr Mcgraw MD - 01/20/[address] [facility] [place] Test Date: 2025-01-19 Pat Name: ELIZ DANIELS Department: DEPID Room: [facility] 2 Gender: Female Filtering Machine Tender: BT : 1975 Requested By: MICHAEL TIMMY N Order Number: [id number] Reading MD: Zackery Mcgraw Measurements Intervals [place] Rate: 84 P: 64 IA: 180 QRS: -12 QRSD: 89 T: 59 QT: 402 QTc: 476 Interpretive Statements SINUS RHYTHM PRWP NONSPECIFIC T-WAVE ABNORMALITY Electronically Signed On 01-20-2025 08:39:51 EDT by Zackery Mcgraw us Michael Hilliard MD IMG ECG ORDERABLES Final Result * PAROXYSMAL ATRIAL FIBRILLATION ABLATION WITH 3D MAPPING (01/19/2025 2:30 PM EDT) Narrative [facility] - 01/22/2025 10:21 AM EDT Successful PVI for PAF Successful CTI line for typical atrial flutter Procedure Details [place] [facility] Electrophysiology Procedure [...] gained access in right femoral vein. A 9-British sheath for ICE, 8F sheath for CS [...] Sheaths inside the left atrium. Then a [place]- array catheter with deflectable curve was advanced into the sheath which was later exchanged to an irrigated ablation catheter. Using [place]- Array catheter and Rocketskates navigation system a three dimensional electro anatomical [...] ORDERABLES Fin al Result Performing Organization Address City/[facility] Co de Phone Number [facility] * (ABNORMAL) ACTIVATED CLOTTING TIME LR POC (01/19/2025 2:01 PM EDT) Only the most recent of3 resultswithin the time period is included. ACT-LR 326(H) 89 - 169 second(s) 01/19/2025 3:32 PM EDT [facility] Blood BLOOD SPECIMEN / Unknown 01/19/2025 2:01 PM EDT 01/19/2025 3:32 PM EDT Michael Hilliard MD POINT OF CARE TEST ORDERABLES Fi nal Result Performing Organization Address [facility] de Phone Number [facility] [address] [place] [address] * INTRAOP AIRWAY PLACEMENT (01/19/2025 12:44 PM EDT) Narrative [facility] - 01/19/2025 12:44 PM EDT Michael Daniel CRNA 01/19/2025 1:00 PM Intraop Airway [...] Atraumatic and Unchanged Insertion attempts: 1 Title: WINDOW INSTALLER Ventilation: BMV us Ekaterina Abraham MD IA ANESTHESIA Edited Result - Final Performing Organization Address [facility] de Phone Number [facility] [address] [place] [address] * POCT EKG (12/31/2024 2:19 PM EDT) 12/31/2024 2:19 PM EDT Impressions [facility] - 12/31/2024 2:19 PM EDT NSR Low voltage QRS Michael Hilliard MD POINT OF CARE CARDIOLOGY Final R esult Performing Organization Address City/[facility] Co de Phone Number [facility] * (ABNORMAL) LIPID SCREEN (10/21/2018 5:57 AM EDT) Cholesterol 132 <=200 mg/dL 10/21/2018 9:01 AM EDT [facility] [employer] Comment: < 200 Desirable 200 - 239 Borderline High >= 240 High Triglyceride 158(H) <=150 mg/dL 10/21/2018 9:01 AM EDT [facility] Comment: < 150 Normal 150 - 199 Borderline High 200 - 499 High >= 500 Very High HDL 40 >=40 mg/dL 10/21/2018 9:01 AM EDT [facility] Comment: > 60 Optimal 40 - 60 Acceptable < 40 Low LDL Calculated 60 <=100 mg/dL 10/21/2018 9:01 AM EDT [facility] Comment: < 100 Optimal 100 - 129 Near or above optimal 130 - 159 Borderline High 160 - 189 High >= 190 Very High Non-HDL-C Calculated 92 <=129 mg/dL 10/21/2018 9:01 AM EDT [facility] Comment: <130 Desirable 130-159 Above Desirable 160-189 Borderline High 190-219 High >= 220 Very High Fasting Specimen? Yes None 019 9:01 AM EDT [facility] Blood VENOUS BLOOD / Unknown Venipuncture / Unknown 10/21/2018 5:57 AM EDT 10/21/2018 6:39 AM EDT Rocio Del Toro BUNDLE WRAPPER CHEMISTRY ORDERABLES Final Result [facility] [address] [place] [address] from Last 3 Months or Most Recently Relevant to Health Maintenance Insurance [place] Advance Directives For more information, please contact: [phone] * Full Code (Latest Code Status on File) Date Activated Date Inactivated Comments 01/19/2025 8:00 PM 01/20/2025 5:01 PM * Full Code Date Activated Date Inactivated Comments 10/20/2018 11:25 PM 10/22/2018 7:12 PM * Full Code Date Activated Date Inactivated Comments 04/04/2015 5:16 PM 04/05/2015 6:42 PM Care Teams Horse Identifier Relationship Specialty Start Date End Date Carlos Dean MD PCP - General 11/08/09
--- NOTE | 2025-02-02 18:30 | [facility].EDCP ---
Discharge Plan Disposition Patient Disposition: Admitted Clinical Impressions Clinical Impression: Pneumonia, Shortness of breath, Acidosis, metabolic, with respiratory acidosis Discharge ED Provider: Brandon Garvin General Chief Complaint: Shortness of Breath/Dyspnea Stated Complaint: SOA,cough,cant talk Time Seen by Provider: 02/02/25 18:15 Mode of Arrival: Ambulatory Source of Information: Patient and Spouse Description of Symptoms (Recalled from ER Triage Doc. by RN): patient presents to the ED for shortness of breath. she was seen by a doctor on 01/29 nad was prescribed antibiotics for bronchitis . she has been taking them as prescribed. she has been having worsening shortness of breath. History of Present Illness HPI narrative: Eliz Maldonado is a 49-year-old female with a history of CHF, diabetes, A-fib status post ablation on January 11 at [place], right BKA, GERD, high cholesterol, hypertension who presents to the emergency department for complaints of cough and shortness of breath. Patient states that for about 2 weeks, she has had shortness of breath and a mostly dry cough with occasional clear sputum. She was seen by PCP on the seventh of this month and was told that she had bronchitis and has been on antibiotic since. She states that today, her shortness of breath got worse. She does report some chest pain over this time as well intermittently in the middle of her chest. She reports subjective fevers. Related Data Home Medications ?Medication ?Instructions ?Recorded ?Confirmed trazodone 150 mg tablet 150 mg PO HS PRN Sleep 12/07/24 02/02/25 insulin regular hum U-500 conc 500 150 unit SQ HS 02/01/25 02/02/25 unit/mL(3 mL) subcut pen insulin regular hum U-500 conc 500 160 unit SQ AM 02/02/25 02/02/25 unit/mL subcutaneous soln Previous Rx's ?Medication ?Instructions ?Recorded apixaban 5 mg tablet 5 mg PO BID atrial fibrillation 30 06/01/24 days #60 tabs losartan 100 mg tablet 100 mg PO DAILY #90 tabs 06/01/24 hydralazine 100 mg tablet 100 mg PO TID #90 tabs 10/26/24 atorvastatin 40 mg tablet 40 mg PO HS 30 days #90 tabs 11/24/24 diltiazem HCl 300 mg 300 mg PO DAILY 30 days #90 caps 12/08/24 capsule,extended release 24 hr furosemide 40 mg tablet (Lasix) 40 mg PO BID 30 days #30 tabs 12/08/24 finerenone 10 mg tablet (Kerendia) 10 mg PO DAILY #30 tabs 12/15/24 metoprolol succinate 100 mg 100 mg PO DAILY #30 tabs 12/15/24 tablet,extended release 24 hr (Toprol XL) hydrocodone 5 mg-acetaminophen 325 1 tab PO TIDP PRN Severe Pain 01/22/25 mg tablet (Scale Score 7-10) #60 tabs desvenlafaxine succinate 100 mg 100 mg PO DAILY #30 tabs 01/29/25 tablet,extended release 24 hr (Pristiq) doxycycline hyclate 100 mg capsule 100 mg PO BID 10 days #20 caps 01/29/25 tirzepatide 2.5 mg/0.5 mL 2.5 mg (0.5 mL) SQ WEEKLY #2 mL 02/01/25 subcutaneous pen injector Allergies Allergy/AdvReac Type Severity Reaction Status Date / Time No Known Allergies Allergy Verified 01/29/25 08:45 [facility] Disclaimer: The information contained in this section may have been updated after the patient was seen, as this information can be updated by other users. Medical History (Updated 02/02/25 @ 21:24 by Brandon Garvin MD) Elevated troponin Fatigue Dyspnea Chest pressure Chest pain Chest pain Lactic acid acidosis Below knee amputation Abscess of axilla, left Left medial knee pain Discoloration of skin of toe Urinary tract infection Seizure disorder Fibromyalgia Cellulitis Pancreatitis History of gastroesophageal reflux (GERD) Atrial fibrillation with rapid ventricular response High blood pressure High cholesterol Afib Mood disorder CHF (congestive heart failure) SOB (shortness of breath) Acute pancreatitis Diabetes Skin lesion of breast Family history of lymphoma Dental infection Amputation of fifth toe of left foot Edema Tachycardia Other forms of angina pectoris Surgical History (Updated 02/02/25 @ 22:14 by Beronica Samayoa RN) H/O cardiac ablation History of cholecystectomy History of appendectomy History of section History of hysterectomy History of colonoscopy Family History Other Family history of cancer Family history of myocardial infarction Family history of stroke Social History (Updated 02/02/25 @ 22:14 by Beronica Samayoa RN) Smoking Status: Never smoker second hand exposure: Yes alcohol intake: former substance use type: denies use current occupational status: disabled Travel in the last 8 weeks?: None household members: spouse housing: house current occupational exposures/hazards: No caffeine: Yes Have you lived/traveled outside [place] in past 30 days?: No Contact w/someone who lives/traveled outside [place] past 30 days?: No Exposure to someone with infectious disease in past 14 days?: No Do you have a fever (greater than 100.4 F or 38 C)?: No Have you tested positive for COVID-19?: No Exposed to someone with COVID-19 in past 14 days?: No Do you have a sore throat?: No Do you have a cough?: No Do you have any weakness?: No Are you experiencing any nausea/vomitting?: No Do you have any diarrhea?: No Are you experiencing any unusual bleeding?: No Do you have any muscle aches/pain?: No Do you have any abdominal pain?: No Are you experiencing loss of taste or smell?: No Other Medical History Have you received the Flu Vaccine for this season: No Have you received the Pneumonia Vaccine: No ROS Obtained: Yes Systems reviewed as appropriate & no additional complaints except as documented Physical Exam General General appearance: alert, in no apparent distress, anxious and obese Head Head exam: atraumatic Eye Eye exam: Present normal appearance ENT ENT exam: Present normal external ear exam Neck Neck exam: Present full ROM Chest Chest inspection: Present symmetric chest wall rise Respiratory Respiratory exam: Present normal lung sounds bilaterally; Absent respiratory distress, wheezes or stridor Cardiovascular Cardiovascular exam: Present regular rate and normal rhythm Abdominal Exam Abdominal exam: Present soft; Absent tenderness or guarding Extremities Exam Extremities exam: Present normal inspection and other (Status post right BKA with prosthesis in place) Back Exam Back exam: Present normal inspection Neurological Exam Neurological exam: Present alert and oriented X3 Psychiatric Psychiatric exam: Present normal affect Skin Skin exam: Present warm and dry HEART Score HEART Score HEART Score assessment performed?: Yes HEART Score: 4 Critical Care Critical Care Time Critical Care Time: No Medical Decision Making Goyo Inquiry Pt receiving controlled substance: No Vital Signs Vital Signs: 02/02/25 18:05 02/02/25 19:00 02/02/25 20:33 Temperature 98.2 F Temperature Source Oral Pulse Rate 88 89 Pulse Rate [Right Radial] 96 H Respiratory Rate 18 21 Blood Pressure 189/82 H 182/85 H Blood Pressure [Right Arm] 187/95 H Blood Pressure Mean [Right Arm] 125 Blood Pressure Source Blood Pressure Source [Right Arm] Automatic Cuff Blood Pressure Position Blood Pressure Position [Right Arm] Sitting 02 Sat by Pulse Oximetry 97 97 96 Oxygen Delivery Method Room Air Room Air 02/02/25 21:00 02/02/25 21:32 02/02/25 21:51 Temperature 98.2 F Temperature Source Oral Pulse Rate 86 87 Pulse Rate [Right Radial] Respiratory Rate 23 21 Blood Pressure 195/81 H 194/106 H Blood Pressure [Right Arm] Blood Pressure Mean [Right Arm] Blood Pressure Source Automatic Cuff Blood Pressure Source [Right Arm] Blood Pressure Position Sitting Blood Pressure Position [Right Arm] 02 Sat by Pulse Oximetry 97 Oxygen Delivery Method Room Air Room Air Lab Data Labs: Lab Results 02/02/25 18:14: SARS-CoV-2 (PCR) Not detected, Influenza Type A (PCR) Not detected, Influenza Type B (PCR) Not detected, RSV (PCR) Not detected, Rhinovirus (PCR) Not detected 02/02/25 18:26: WBC 9.1, RBC 4.00 L, Hgb 11.2 L, Hct 34.5 L, MCV 86.3, MCH 28.0, MCHC 32.5, RDW 14.5, Plt Count 264, MPV 9.7, Neut % (Auto) 75.0, Lymph % (Auto) 14.3, [place] % (Auto) 5.7, Eos % (Auto) 2.7, Baso % (Auto) 0.5, Neut # (Auto) 6.8, Lymph # (Auto) 1.3, [place] # (Auto) 0.5, Eos # (Auto) 0.3, Baso # (Auto) 0.1, D-Dimer 0.71 H, Sodium 134 L, Potassium 4.0, Chloride 100, Carbon Dioxide 27, Anion Gap 11.0, BUN 13, Creatinine 1.00, Estimated Creat Clear 65, Estimated GFR 59, Est GFR ( Amer) 71, Glucose 290 H, Calcium 8.8, Total Bilirubin 0.7, AST 37 H, ALT 35, Alkaline Phosphatase 75, Troponin I 0.02, NT-Pro-B Natriuret Pep 294 H, Total Protein 7.5, Albumin 3.8, Globulin 3.7 H, Albumin/Globulin Ratio 1.0 L, Lipase 91, Acetone Level None detected 02/02/25 18:30: VBG pH 7.30 L, VBG pCO2 53.8 H, VBG pO2 39.0, VBG HCO3 25.9, VBG Total CO2 27.6 H, VBG O2 Saturation 70.5 H, VBG Base Excess -0.5, VBG Lactic Acid 4.8 H 02/02/25 21:04: SARS-CoV-2 (PCR) Not detected, Influenza A Untype (PCR) Not detected, Influenza Type B (PCR) Not detected 02/02/25 21:07: Troponin I 0.03 02/02/25 18:26 02/02/25 18:26 Response Orders (Tests/Meds): ED MEDICATIONS Generic Name Dose Route Start Last Admin Trade Name Freq PRN Reason Stop Dose Admin Acetaminophen 650 mg 02/02/25 21:21 Acetaminophen 325mg Tab PO 03/04/25 21:20 Q4HP PRN Fever or Mild Pain (1-3) Albuterol Sulfate 2.5 mg 02/02/25 23:07 Albuterol 0.083% 2.5 Mg/3 Ml [facility] 03/04/25 23:06 Q2HP PRN Shortness Of Breath Albuterol/Ipratropium 3 ml 02/03/25 00:00 02/03/25 00:59 Ipratropium/Albuterol 3 Ml Neb 03/05/25 00:00 3 ml Q6RT CORDELIA Administration Guaifenesin 600 mg 02/02/25 23:15 02/02/25 23:18 Guaifenesin 600 Mg Tab.Er.12h PO 03/04/25 23:14 600 mg BID CORDELIA Administration Hydralazine HCl 100 mg 02/02/25 23:10 02/02/25 23:18 Hydralazine Hcl 25mg Tablet PO 03/04/25 23:09 100 mg TID CORDELIA Administration Insulin Human Lispro 0 unit 02/03/25 06:00 Humalog 100 Units/Ml 10ml Vial (Ssi) SUBCUT 03/05/25 05:59 ACHS CORDELIA Protocol Ondansetron HCl 4 mg 02/03/25 00:35 02/03/25 00:48 Ondansetron 4mg/2ml Vial IV 03/05/25 00:34 4 mg Q8HP PRN Administration Nausea Pantoprazole Sodium 40 mg 02/03/25 21:00 Pantoprazole 40mg Tablet PO 03/05/25 20:59 HS CORDELIA Discontinued Medications Generic Name Dose Route Start Last Admin Trade Name Freq PRN Reason Stop Dose Admin Aspirin 325 mg 02/02/25 18:28 02/02/25 19:32 Aspirin 325mg Tablet PO 02/02/25 18:29 325 mg ONCE ONE Administration Hydralazine HCl 100 mg 02/03/25 09:00 Hydralazine Hcl 25mg Tablet PO 03/05/25 08:59 TID CORDELIA Lactated Ringer's 500 mls @ 999 mls/hr 02/02/25 18:49 02/02/25 21:18 Lactated Ringer's 500ml IV 02/02/25 19:19 Infused .Q31M ONE Infusion Ceftriaxone Sodium 2 gm/ 100 mls @ 200 mls/hr 02/02/25 19:08 02/02/25 20:53 Sodium Chloride IV 02/02/25 19:37 Infused ONCE ONE Infusion Azithromycin 500 mg/ Sodium 250 mls @ 250 mls/hr 02/02/25 19:08 02/02/25 21:49 Chloride IV 02/02/25 19:09 Infused ONCE ONE Infusion Iopamidol 70 ml 02/02/25 20:32 02/02/25 20:33 Iopamidol-370 (76%);100ml Bottle IV 02/02/25 20:33 70 ml ONCE ONE Administration Sodium Chloride 50 ml 02/02/25 20:32 02/02/25 20:33 0.9 % Sodium Chloride 50 Ml Vial IV 02/02/25 20:33 50 ml ONCE ONE Administration Sodium Chloride 10 ml 02/02/25 20:32 02/02/25 20:33 Sodium Chloride 0.9% 10ml Syr (Rad Only) IV 02/02/25 20:33 10 ml ONCE ONE Administration ORDERS Category Date Time Status CT angio chest PE protocol Stat Cat Scan 02/02/25 19:51 Completed CXR --portable [XR chest portable] Stat Exams 02/02/25 18:54 Completed Acetone, Serum (Rapid) Stat Lab 02/02/25 18:26 Completed BNP [NT Pro Brain Natriuretic Pep.] Stat Lab 02/02/25 18:26 Completed CBC w/Auto Diff [Complete Blood Count Auto Diff] Stat Lab 02/02/25 18:26 Completed CMP [Comprehensive Metabolic Panel] Stat Lab 02/02/25 18:26 Completed Complete Blood Count Auto Diff AMLAB Lab 02/03/25 06:00 Ordered Comprehensive Metabolic Panel AMLAB Lab 02/03/25 06:00 Ordered D-Dimer Stat Lab 02/02/25 18:26 Completed Lipase Stat Lab 02/02/25 18:26 Completed Mini Respiratory Panel Stat Lab 02/02/25 18:14 Completed Rapid PCR Covid and Flu A/B Stat Lab 02/02/25 21:04 Completed Troponin I Q3H Lab 02/02/25 21:07 Completed Troponin I Q3H Lab 02/03/25 00:45 Completed Troponin I Q3H Lab 02/03/25 03:30 Ordered Troponin I Stat Lab 02/02/25 18:26 Completed VBG [Venous Blood Gas] Stat RT 02/02/25 18:30 Completed ECG Data Tracing #1: Attestation: I reviewed this ECG and interpreted as documented below: ECG Narrative: Normal sinus rhythm. No ST elevation or depression. QTc normal at 432 MDM Narrative Medical Decision Narrative: Eliz Maldonado is a 49-year-old female with a history of CHF, diabetes, A-fib status post ablation on January 11 at [place], right BKA, GERD, high cholesterol, hypertension who presents to the emergency department for complaints of cough and shortness of breath. Patient states that for about 2 weeks, she has had shortness of breath and a mostly dry cough with occasional clear sputum. She was seen by PCP on the seventh of this month and was told that she had bronchitis and has been on antibiotic since. She states that today, her shortness of breath got worse. She does report some chest pain over this time as well intermittently in the middle of her chest. She reports subjective fevers. Patient reports a remote history of tobacco use but denies any currently. On arrival, patient is hypertensive with blood pressure 187/95, heart rate borderline tachycardic at 96 bpm, afebrile, oxygen saturation 97% on room air. Physical exam, as stated above, revealed an anxious appearing female in who was in no acute respiratory distress. She is speaking in full sentences. Cardiopulmonary exam showed no wheezing, rales or rhonchi. No murmurs or rubs. She appears well-hydrated. Differential diagnosis includes, but is not limited to: Pneumonia, ACS, bronchitis, pulmonary embolism, pericarditis, myocarditis, among others. The most morbid conditions were considered and workup was based on these. Patient was administered 325 mg of aspirin. Patient's D-dimer is 0.71. No leukocytosis with white blood cell count of 9.1, 75% neutrophils. Chronically low hemoglobin near baseline at 11.2, hematocrit of 34.5. pH mildly low at 7.30 due to a likely mixed respiratory and metabolic acidosis with elevated lactate of 4.8. pCO2 mildly elevated at 53.8, could be secondary to obesity hypoventilation or possible obstructive lung disease in the setting of her tobacco use. She states that she does not have a formal diagnosis of COPD. Bicarb normal at 25.9. Electrolytes grossly unremarkable nonactionable except for mild hyponatremia 134. Kidney function without kidney injury. Glucose mildly elevated at 290. No acute action is needed. Patient's acetone is negative, NT proBNP mildly elevated but improved from previous at 294. Lipase normal at 91. Patient's initial troponin 0.02. Repeat troponin stable at 0.03. Chest x-ray was interpreted by me personally. Patient could possibly have a small area of patchy airspace opacity in the right middle lobe that could represent pneumonia versus atelectasis. will administer a gentle 500cc fluid bolus given no evidence of volume overload on CXR and she does not appear volume overloaded on physical exam. Patient was not able to tolerate a two-view chest x-ray due to her being wheelchair-bound. Per radiology, patient has minimal bibasilar atelectasis. patient reported worsening of her symptoms here when moving from wheelchair to bed with significant shortness of breath. Although she is on Eliquis, I do feel that she would benefit from CT scan to evaluate for possible PE as well as better identifying a possible pneumonia. She is in agreement with this plan. Due to her acidosis and concern for pneumonia with a PSI score of 90, I did start the patient on IV Rocephin and azithromycin. CT imaging was interpreted by me personally. No pulmonary emboli is appreciated. She has small bilateral pleural effusions and airspace opacities versus parabronchial cuffing bilateral. Per radiology, there is also mild anterior and interlobular septal thickening and small bilateral pleural effusions, likely hydrostatic/cardiogenic pulmonary edema. Areas of pneumatosis within the lower lobes are possible. Given patient's worsening of symptoms, I do feel that this could represent a developing pneumonia, especially in the setting of her being on outpatient antibiotics and not improving. Patient subjectively feels very short of breath and is not comfortable going home. With her elevated PSI score, I do feel that admission for continued IV antibiotics is reasonable. I then discussed the patient's case with the hospital medicine service who graciously agreed to admit the patient for further management.
[2025-02-02 18:39] LABS: VBG HCO3 25.9 mmol/L (23-30); VBG PH 7.30 mmol/L (7.31-7.41); VBG PO2 39.0 mmol/L (28-40)
[2025-02-02 18:39] LABS: Coronavirus 19, PCR Not Detected (NotDetected); Influenza A, PCR Not Detected (NotDetected); Influenza B, PCR Not Detected (NotDetected)
[2025-02-02 18:42] LABS: Lactate Venous 4.8 mmol/L (0.4-2.0); VBG PCO2 53.8 mmol/L (35-51)
--- NOTE | 2025-02-02 18:42 | ECG_ITS ---
APPROVED REPORT Exam: Resting ECG HR:89 bpm ECG Measurements Heart Rate 89 AXES MT 174 P 80 QRSd 90 QRS -7 QT 385 T 78 QTc 432 Conclusion SINUS RHYTHM LOW QRS VOLTAGE IN PRECORDIAL LEADS [QRS DEFLECTION < 1.0 mV IN CHEST LEADS] POSSIBLE ANTERIOR MYOCARDIAL INFARCTION , PROBABLY OLD [30 ms Q WAVE IN V3/V4, OR R < 0.2 mV IN V4] BORDERLINE ECG UNCONFIRMED REPORT Normal sinus rhythm. No ST elevation or depression. QTc 432 Electronically signed by : HARLAN ENRIQUEZ, 02/05/2025 15:26:46
[2025-02-02 18:49] LABS: Alanine Aminotransferase 35 U/L (12-78); Albumin Level 3.8 g/dl (3.5-5.0); Albumin/Globulin Ratio 1.0 (1.1-1.8); Alkaline Phosphatase 75 U/L (38-126); Anion Gap 11.0 mEq/L (5-15); Aspartate Amino Transferase 37 U/L (14-36); Bilirubin,Total 0.7 mg/dl (0.2-1.3); Blood Urea Nitrogen 13 mg/dl (7-17); Calcium 8.8 mg/dl (8.4-10.2); Carbon Dioxide 27 mmol/L (22.0-30.0); Chloride 100 mmol/L (98-107); Creatinine Clearance Estimated 65 mL/min (50-200); Creatinine,Serum 1.00 mg/dl (0.52-1.04); Estimated Glomerular Filt Rate 59 ml/min (>60); GFR (African American) 71 ML/MIN (>60); Globulin 3.7 g/dL (1.3-3.2); Glucose 290 mg/dl (74-100); Lipase 91 U/L (23-300); Potassium 4.0 mmoL/L (3.5-5.1); Sodium 134 mmol/L (136-145); Total Protein,Serum 7.5 g/dl (6.3-8.2)
[2025-02-02 18:54] LABS: D-Dimer 0.71 ug/mL (0.0-0.5)
--- NOTE | 2025-02-02 18:54 | XR_ITS ---
PROCEDURE INFORMATION: Exam: XR Chest Exam date and time: 02/02/2025 6:56 PM Age: 49 years old Clinical indication: Shortness of breath TECHNIQUE: Imaging protocol: Radiologic exam of the chest. Views: 1 view. COMPARISON: CT ANGIO CHEST PE PROTOCOL 12/07/2024 10:44 AM FINDINGS: Lungs: Minimal bibasilar atelectasis. No pulmonary edema or focal consolidations. Pleural spaces: Normal. Heart/Mediastinum: Normal. Bones/joints: Multilevel thoracic spine degenerative disc space narrowing and osteophyte formation. IMPRESSION: No acute cardiopulmonary abnormality.
[2025-02-02 19:00] VITALS: BP 189/82; PULSE 88; RESP 21; O2SAT 97
[2025-02-02 19:01] LABS: NT Pro Brain Natriuretic Pep. 294 pg/mL (0-125); Troponin I 0.02 ng/ml (0.00-0.034)
--- NOTE | 2025-02-02 19:04 | PC.NURSE ---
PROVIDER NOTIFIED OF FLAGGING SEPSIS. HE REPORTS HISTORY OF HEART FAILURE ONLY GIVING 1LITER
[2025-02-02 19:13] LABS: Acetone, Serum (Rapid) None Detected (None Detect)
[2025-02-02 19:21] LABS: Hematocrit 34.5 % (37.0-47.0); Hemoglobin 11.2 g/dL (12.2-16.2); Immature Granulocytes % 1.8 %; Mean Corpuscular HGB Conc 32.5 g/dL (31.8-35.4); Mean Corpuscular Hemoglobin 28.0 pg (27.0-31.2); Mean Corpuscular Volume 86.3 fl (81-99); Nucleated Red Blood Cells % 0 %; Platelet Count 264 K/mm3 (142-424); Red Blood Count 4.00 M/mm3 (4.20-5.40); Red Cell Distribution Width-SD 45.1 fL; White Blood Count 9.1 K/mm3 (4.8-10.8)
[2025-02-02] MEDS: ASPIRIN 325MG TABLET 325 MG PO (19:32)
--- NOTE | 2025-02-02 19:50 | PC.NURSE ---
rounded on pt. pt transferred to bed x3 assist. pt expressing concern about black spot on right pointer finger. Dr Garvin notified. no other needs or concerns. call light in reach.
--- NOTE | 2025-02-02 19:51 | CT_ITS ---
PROCEDURE INFORMATION: Exam: CTA Chest With Contrast Exam date and time: 02/02/2025 8:26 PM Age: 49 years old Clinical indication: Shortness of breath; Additional info: Elevated d dimer, short of breath TECHNIQUE: Imaging protocol: Computed tomographic angiography of the chest with contrast. Exam focused on the arteries. 3D rendering (Not supervised by radiologist): MIP and/or 3D reconstructed images were created by the technologist. Radiation optimization: All CT scans at this facility use at least one of these dose optimization techniques: automated exposure control; mA and/or kV adjustment per patient size (includes targeted exams where dose is matched to clinical indication); or iterative reconstruction. Contrast material: ISOVUE; Contrast volume: 70 ml; Contrast route: INTRAVENOUS (IV); COMPARISON: CT ANGIO CHEST PE PROTOCOL 12/07/2024 10:44 AM FINDINGS: Pulmonary arteries: No acute pulmonary emboli. Main pulmonary artery is mildly enlarged, measuring approximately 33 mm in diameter at the level of the pulmonary artery bifurcation, compatible with pulmonary arterial hypertension. Aorta: Unremarkable. No aortic aneurysm. No aortic dissection. Lungs: Mild bilateral mid and lower lung zone peribronchial cuffing, with mild inter and interlobular septal thickening and small bilateral pleural effusions, likely hydrostatic/cardiogenic pulmonary edema. Areas of pneumonitis within the lower lobes possible. Pleural spaces: See Lungs finding. Heart: Mild enlargement of the left ventricular chamber. Lymph nodes: Unremarkable. No enlarged lymph nodes. Bones/joints: Multilevel thoracic spine degenerative disc space narrowing and osteophyte formation. Soft tissues: Unremarkable. IMPRESSION: 1. No acute pulmonary emboli. 2. Mild bilateral mid and lower lung zone peribronchial cuffing, with mild inter and interlobular septal thickening and small bilateral pleural effusions, likely hydrostatic/cardiogenic pulmonary edema. Areas of pneumonitis within the lower lobes possible.
[2025-02-02 20:33] VITALS: BP 182/85; PULSE 89; O2SAT 96
[2025-02-02] MEDS: IOPAMIDOL-370 (76%);100ML BOTTLE 70 ML IV (20:33)
[2025-02-02] MEDS: 0.9 % SODIUM CHLORIDE 50 ML VIAL IV (20:33)
[2025-02-02] MEDS: SODIUM CHLORIDE 0.9% 10ML SYR (RAD ONLY) 10 ML IV (20:33)
[2025-02-02] MEDS: AZITHROMYCIN 500 MG in 0.9 % SODIUM CHLORIDE 250 ML 250 MG IV (20:37)
[2025-02-02] MEDS: RINGERS SOLUTION,LACTATED 500 ML 999 ML IV (20:37)
[2025-02-02 21:00] VITALS: BP 195/81; PULSE 86; RESP 23; O2SAT 97
[2025-02-02 21:11] LABS: Coronavirus 19, PCR Not Detected (NotDetected); Influenza A, PCR Not Detected (NotDetected); Influenza B, PCR Not Detected (NotDetected)
[2025-02-02 21:42] LABS: Troponin I 0.03 ng/ml (0.00-0.034)
[2025-02-02 21:51] VITALS: BP 194/106; PULSE 87; RESP 21; TEMP 36.8; O2SAT 97
--- NOTE | 2025-02-02 21:52 | PC.NURSE ---
Patient arrived to floor via stretcher from ED at 21:52.
[2025-02-02 22:00] VITALS: BP 202/108; PULSE 86; RESP 16; TEMP 36.9; O2SAT 96; BMI 57.0
[2025-02-02 22:40] LABS: Reflex Lactic Add Lactic Reflex
--- NOTE | 2025-02-02 23:14 | P.HP_ITS ---
<Statement entered by Mahamed Benavides MD - 02/03/25 13:26> Rounded on patient after nurse practitioner. Personally examined and interviewed patient. Agree with exam findings and care plan as documented. History of Present Illness *Admission Date: 02/02/25 *Reason for visit:: Shortness of breath *History of present illness: 49-year-old female patient presents to ER with shortness of breath. She was seen at primary care 2 days ago and started on antibiotics. She states she has been taking them as directed but symptoms continued to worsen. Prior to her visit at primary care she had had symptoms for about 1 week. Symptoms consist of cough that at times is productive of yellow to green sputum. She has had wheezing and congestion. Also reports some nausea without vomiting or diarrhea. She did have chills but denied fever or bodyaches. She states years ago she was told she has COPD but there has been no mention of that further and she is not on any medications for this. Presentation in the ER she was hypertensive with a normal respiratory rate and afebrile. O2 sat was 97%. CT does not show clear evidence of a pneumonia. It is negative for PE. It does show possible lower lobe pneumonitis. She received Rocephin and Zithromax and fluid bolus in the ER. [facility] Disclaimer: The information contained in this section may have been updated after the patient was seen, as this information can be updated by other users. Medical History (Updated 02/03/25 @ 02:55 by Candace Baker APRN) Elevated troponin Fatigue Dyspnea Chest pressure Chest pain Chest pain Lactic acid acidosis Below knee amputation Abscess of axilla, left Left medial knee pain Discoloration of skin of toe Urinary tract infection Seizure disorder Fibromyalgia Cellulitis Pancreatitis History of gastroesophageal reflux (GERD) Atrial fibrillation with rapid ventricular response High blood pressure High cholesterol Afib Mood disorder CHF (congestive heart failure) SOB (shortness of breath) Acute pancreatitis Diabetes Skin lesion of breast Family history of lymphoma Dental infection Amputation of fifth toe of left foot Edema Tachycardia Other forms of angina pectoris Surgical History (Updated 02/03/25 @ 02:15 by Candace Baker APRN) Amputation above knee H/O cardiac ablation History of cholecystectomy History of appendectomy History of section History of hysterectomy History of colonoscopy Family History Other Family history of cancer Family history of myocardial infarction Family history of stroke Social History Smoking Status: Never smoker second hand exposure: Yes alcohol intake: former substance use type: denies use current occupational status: disabled Travel in the last 8 weeks?: None household members: spouse housing: house current occupational exposures/hazards: No caffeine: Yes Have you lived/traveled outside [place] in past 30 days?: No Contact w/someone who lives/traveled outside [place] past 30 days?: No Exposure to someone with infectious disease in past 14 days?: No Do you have a fever (greater than 100.4 F or 38 C)?: No Have you tested positive for COVID-19?: No Exposed to someone with COVID-19 in past 14 days?: No Do you have a sore throat?: No Do you have a cough?: No Do you have any weakness?: No Are you experiencing any nausea/vomitting?: No Do you have any diarrhea?: No Are you experiencing any unusual bleeding?: No Do you have any muscle aches/pain?: No Do you have any abdominal pain?: No Are you experiencing loss of taste or smell?: No Other Medical History Have you received the Flu Vaccine for this season: No Have you received the Pneumonia Vaccine: No Review of Systems Constitutional Constitutional: Denies body ache(s), Reports chills and Denies fever(s) Eyes Eyes: Reports system reviewed and no additional complaints, except as documented ENT Ears, Nose, Mouth, and Throat: Reports system reviewed and no additional complaints, except as documented *Cardiovascular Cardiovascular: Denies chest pain and Reports dyspnea *Respiratory Respiratory: Reports chest congestion, Reports cough, Reports dyspnea and Reports wheezing *Gastrointestinal Gastrointestinal: Denies loose stools, Reports nausea and Denies vomiting *Genitourinary Genitourinary: Denies difficulty voiding and Denies dysuria *Musculoskeletal Musculoskeletal: Reports system reviewed and no additional complaints, except as documented *Neurologic Neurologic: Reports system reviewed and no additional complaints, except as documented Allergic/Immunologic Allergic/Immunologic: Reports wheezing Meds Home Medications and Allergies Home Medications ?Medication ?Instructions ?Recorded ?Confirmed ?Type apixaban 5 mg tablet 5 mg PO BID atrial fibrillat ion 30 06/01/24 02/02/25 Rx days #60 tabs losartan 100 mg tablet 100 mg PO DAILY #90 tabs 01/1602/02/25 Rx hydralazine 100 mg tablet 100 mg PO TID #90 tabs 10/2602/02/25 Rx atorvastatin 40 mg tablet 40 mg PO HS 30 days #90 tabs 11/24/24 02/02/25 Rx trazodone 150 mg tablet 150 mg PO HS PRN Sleep 12/0702/02/25 History diltiazem HCl 300 mg 300 mg PO DAILY 30 days #90 caps 12/08/24 02/02/25 Rx capsule,extended release 24 hr furosemide 40 mg tablet (Lasix) 40 mg PO BID 30 days # 30 tabs 12/08/24 02/02/25 Rx finerenone 10 mg tablet (Kerendia) 10 mg PO DAILY #30 tabs 12/15/24 02/02/25 Rx metoprolol succinate 100 mg 100 mg PO DAILY #30 tabs 0 12/15/24 02/02/25 Rx tablet,extended release 24 hr (Toprol XL) hydrocodone 5 mg-acetaminophen 325 1 tab PO TIDP PRN S evere Pain 01/22/25 02/02/25 Rx mg tablet (Scale Score 7-10) #60 tabs desvenlafaxine succinate 100 mg 100 mg PO DAILY #30 ta bs 01/29/25 02/02/25 Rx tablet,extended release 24 hr (Pristiq) doxycycline hyclate 100 mg capsule 100 mg PO BID 10 da ys #20 caps 01/29/25 02/02/25 Rx insulin regular hum U-500 conc 500 150 unit SQ HS 01/2302/02/25 History unit/mL(3 mL) subcut pen tirzepatide 2.5 mg/0.5 mL 2.5 mg (0.5 mL) SQ WEEKLY #2 mL 02/01/25 02/02/25 Rx subcutaneous pen injector insulin regular hum U-500 conc 500 160 unit SQ AM 01/2302/02/25 History unit/mL subcutaneous soln New Prescriptions to Start Prescriptions: Allergies Allergy/AdvReac Type Severity Reaction Status Date / Time No Known Allergies Allergy Verified 01/29/25 08:45 Exam Data for Last 24 hours Vital signs and Labs for Last 24 Hours: Temp Pulse Resp BP Pulse Ox O2 Del Method 98.4 F 86 16 202/108 H 96 Room Air 02/02/25 22:00 02/02/25 22:00 02/02/25 22:00 02/02/25 22:00 02/02/25 22:00 02/02/25 22:00 Laboratory Results - last 24 hr 02/02/25 18:14: SARS-CoV-2 (PCR) Not detected, Influenza Type A (PCR) Not detected, Influenza Type B (PCR) Not detected, RSV (PCR) Not detected, Rhinovirus (PCR) Not detected 02/02/25 18:26: WBC 9.1, RBC 4.00 L, Hgb 11.2 L, Hct 34.5 L, MCV 86.3, MCH 28.0, MCHC 32.5, RDW 14.5, Plt Count 264, MPV 9.7, Neut % (Auto) 75.0, Lymph % (Auto) 14.3, [place] % (Auto) 5.7, Eos % (Auto) 2.7, Baso % (Auto) 0.5, Neut # (Auto) 6.8, Lymph # (Auto) 1.3, [place] # (Auto) 0.5, Eos # (Auto) 0.3, Baso # (Auto) 0.1, D- Dimer 0.71 H, Sodium 134 L, Potassium 4.0, Chloride 100, Carbon Dioxide 27, Anion Gap 11.0, BUN 13, Creatinine 1.00, Estimated Creat Clear 65, Estimated GFR 59, Est GFR ( Amer) 71, Glucose 290 H, Calcium 8.8, Total Bilirubin 0.7, AST 37 H, ALT 35, Alkaline Phosphatase 75, Troponin I 0.02, NT-Pro-B Natriuret Pep 294 H, Total Protein 7.5, Albumin 3.8, Globulin 3.7 H, Albumin/Globulin Ratio 1.0 L, Lipase 91, Acetone Level None detected 02/02/25 18:30: VBG pH 7.30 L, VBG pCO2 53.8 H, VBG pO2 39.0, VBG HCO3 25.9, VBG Total CO2 27.6 H, VBG O2 Saturation 70.5 H, VBG Base Excess -0.5, VBG Lactic Acid 4.8 H 02/02/25 21:04: SARS-CoV-2 (PCR) Not detected, Influenza A Untype (PCR) Not detected, Influenza Type B (PCR) Not detected 02/02/25 21:07: Troponin I 0.03 I & O for Last 24 hours: Intake & Output 01/30/25 01/31/25 02/01/25 02/02/25 23:59 23:59 23:59 23:59 Intake Total 850 / 850 Balance 850 / 850 Weight 164.835 kg Constitutional Constitutional: no acute distress *Routine HEENT Exam Head: Present normocephalic and atraumatic Eye: Present PERRL ENT: Present mucous membranes moist *Routine Neck Exam Neck: Present supple; Absent lymphadenopathy *Routine Respiratory Exam Respiratory: Present rhonchi and wheezes *Routine Cardiovascular Exam Cardiovascular: Present RRR, Normal S1 and Normal S2 *Routine Abdominal Exam Abdominal: Present soft and normoactive bowel sounds; Absent tenderness *Routine Rectal Exam Rectal:: deferred *Routine Genitalia Exam Genitalia:: deferred *Routine Extremities Exam Extremities: Present pulses intact (Right AKA, left pedal pulses palpable); Absent edema *Routine Skin Exam Skin: Present intact, dry and warm *Routine Neurological Exam Neurological: Present alert, oriented X3 and moving all extremities Assessment and Plan *Assessment and plan (1) Acute hypercapnic respiratory failure: Status: Acute Category: Medical Code(s): J96.02 - Acute respiratory failure with hypercapnia (2) Pneumonitis: Status: Acute Category: Medical Code(s): J98.4 - Other disorders of lung (3) (HFpEF) heart failure with preserved ejection fraction: Status: Chronic Qualifiers: Heart failure chronicity: acute on chronic Qualified Code(s): I50.33 - Acute on chronic diastolic (congestive) heart failure Category: Medical Code(s): I50.30 - Unspecified diastolic (congestive) heart failure (4) CAD (coronary artery disease): Status: Acute Qualifiers: Associated angina: without angina Coronary Disease-Associated Artery/Lesion type: [place] artery [place] vs. transplanted heart: [place] heart Qualified Code(s): I25.10 - Atherosclerotic heart disease of [place] coronary artery without angina pectoris Category: Medical Code(s): I25.10 - Atherosclerotic heart disease of [place] coronary artery without angina pectoris (5) NSTEMI (non-ST elevated myocardial infarction): Status: Acute Category: Medical Code(s): I21.4 - Non-ST elevation (NSTEMI) myocardial infarction (6) Diabetes mellitus: Status: Chronic Qualifiers: Diabetes mellitus complication status: with other specified complication Diabetes mellitus [employer] oil [employer] insulin use: unspecified jail insulin use status Diabetes mellitus type: type 2 Qualified Code(s): E11.69 - Type 2 diabetes mellitus with other specified complication Category: Medical Code(s): E11.9 - Type 2 diabetes mellitus without complications (7) High blood pressure: Status: Acute Qualifiers: Hypertension type: primary hypertension Qualified Code(s): I10 - Essential (primary) hypertension Category: Medical Code(s): I10 - Essential (primary) hypertension (8) HLD (hyperlipidemia): Status: Chronic Qualifiers: Hyperlipidemia type: mixed hyperlipidemia Qualified Code(s): E78.2 - Mixed hyperlipidemia Category: Medical Code(s): E78.5 - Hyperlipidemia, unspecified (9) Afib: Status: Acute Qualifiers: Atrial fibrillation type: unspecified Qualified Code(s): I48.91 - Unspecified atrial fibrillation Category: Medical Code(s): I48.91 - Unspecified atrial fibrillation Plan Patient presents to ER with complaints of shortness of breath for over a week. No improvement after 2 days of oral antibiotics from primary care. Also complained of chest pain. In the ER she received IV fluids, Rocephin, and Zithromax. After discussing the case with ER provider I agreed to admit for further evaluation and treatment. Etiology of acute hypercapnic respiratory failure could include pneumonia, heart failure exacerbation, or COPD exacerbation. She has been told in the past that she had COPD but never placed on any medications and she is not hurting thing about this for years. She is not a smoker however she is exposed to secondhand smoke. CT does show small bilateral pleural effusions and concern for pulmonary edema as well as possible pneumonitis in the lower lobes. will hold off on further IV fluids as her BNP is slightly elevated and she does have history of HFpEF. Renal function is within normal limits, she does not appear to be dry. Initial troponin 0.02, 0.03 and third is 0.04. EKG showed a sinus rhythm without acute ST changes will repeat EKG in the morning. Suspect type 2 NSTEMI. Does have history of atrial fib, status post ablation and is on Eliquis at home. Home meds will be resumed once verified by pharmacy. Full respiratory panel is pending. Negative for flu and COVID in the ER. Will continue Rocephin and Zithromax. Provide breathing treatments both routine and as needed sliding scale insulin coverage.
[2025-02-02] MEDS: guaiFENesin 600 MG TAB.ER.12H PO (23:18)
[2025-02-02] MEDS: HYDRALAZINE HCL 25MG TABLET 100 MG PO (23:18)
[2025-02-02 23:26] LABS: Adenovirus,PCR Not Detected (NotDetected); Chlamydophila Pneumoniae, PCR Not Detected (NotDetected); Coronavirus 19, PCR Not Detected (NotDetected); Coronovirus HKU1,PCR Not Detected (NotDetected); Influenza A, PCR Not Detected (NotDetected); Influenza AH1, 2009 Not Detected (NotDetected); Influenza AH1, PCR Not Detected (NotDetected); Influenza AH3,PCR Not Detected (NotDetected); Influenza B, PCR Not Detected (NotDetected); Mycoplasma Pneumoniae, PCR Not Detected (NotDetected); Parainfluenza 1, PCR Not Detected (NotDetected); Parainfluenza 2, PCR Not Detected (NotDetected); Parainfluenza 3, PCR Not Detected (NotDetected); Parainfluenza 4, PCR Not Detected (NotDetected)
[2025-02-02 23:41] LABS: Lactic Acid Follow Up (RFLX 1) 1.9 mmol/L (0.7-2.1)
[2025-02-03] VITALS (11 sets, daily range): BP systolic 110–191; BP diastolic 61–87; PULSE 49–88; RESP 16–18; TEMP 36.6–36.9; O2SAT 93–99; BMI 57.0
[2025-02-03] MEDS: ONDANSETRON 4MG/2ML VIAL 4 MG IV ×2 (00:48→18:37)
[2025-02-03] MEDS: IPRATROPIUM/ALBUTEROL 3 ML NEB IH ×5 (00:59→23:48)
[2025-02-03 01:28] LABS: Troponin I 0.04 ng/ml (0.00-0.034)
[2025-02-03 01:59] LABS: POC Glucose,Bedside 210 gm/dL (70-110)
[2025-02-03 04:00] LABS: Troponin I 0.05 ng/ml (0.00-0.034)
--- NOTE | 2025-02-03 04:14 | PC.NURSE ---
Alert and oriented. Complained of nausea one time, treated per mar. No other complaints. ACHS FS. Max assist. Purewick in place. at bedside. Patient coughed interemittently, productive. Lung sounds clear. Room air. Call light in reach.
[2025-02-03 06:31] LABS: Hematocrit 33.8 % (37.0-47.0); Hemoglobin 10.8 g/dL (12.2-16.2); Immature Granulocytes % 1.7 %; Mean Corpuscular HGB Conc 32.0 g/dL (31.8-35.4); Mean Corpuscular Hemoglobin 27.7 pg (27.0-31.2); Mean Corpuscular Volume 86.7 fl (81-99); Nucleated Red Blood Cells % 0 %; Platelet Count 248 K/mm3 (142-424); Red Blood Count 3.90 M/mm3 (4.20-5.40); Red Cell Distribution Width-SD 45.6 fL; White Blood Count 9.2 K/mm3 (4.8-10.8)
[2025-02-03 06:40] LABS: Alanine Aminotransferase 26 U/L (12-78); Albumin Level 3.6 g/dl (3.5-5.0); Albumin/Globulin Ratio 1.1 (1.1-1.8); Alkaline Phosphatase 73 U/L (38-126); Anion Gap 9.0 mEq/L (5-15); Aspartate Amino Transferase 26 U/L (14-36); Bilirubin,Total 0.7 mg/dl (0.2-1.3); Blood Urea Nitrogen 16 mg/dl (7-17); Calcium 8.9 mg/dl (8.4-10.2); Carbon Dioxide 30 mmol/L (22.0-30.0); Chloride 101 mmol/L (98-107); Creatinine Clearance Estimated 63 mL/min (50-200); Creatinine,Serum 1.00 mg/dl (0.52-1.04); Estimated Glomerular Filt Rate 59 ml/min (>60); GFR (African American) 71 ML/MIN (>60); Globulin 3.3 g/dL (1.3-3.2); Glucose 232 mg/dl (74-100); Potassium 4.0 mmoL/L (3.5-5.1); Sodium 136 mmol/L (136-145); Total Protein,Serum 6.9 g/dl (6.3-8.2)
[2025-02-03] MEDS: humaLOG 100 UNITS/ML 10ML VIAL (SSI) SUBCUT ×3 (06:47→21:00)
--- NOTE | 2025-02-03 07:25 | ECG_ITS ---
APPROVED REPORT Exam: Resting ECG HR:78 bpm ECG Measurements Heart Rate 78 AXES SC 179 P 63 QRSd 94 QRS 87 QT 399 T 53 QTc 432 Conclusion SINUS RHYTHM LOW QRS VOLTAGE IN PRECORDIAL LEADS [QRS DEFLECTION < 1.0 mV IN CHEST LEADS] BORDERLINE ECG UNCONFIRMED REPORT Electronically signed by : Jude Betancur MD 02/04/2025 13:12:14
--- NOTE | 2025-02-03 07:45 | HMH.PHAINT1 ---
Pharmacy Intervention Comments: HOME MEDICATION LIST VERIFIED USING LIST FROM OUTPATIENT PHARMACY, PCP OFFICE AND CARDIOLOGY OFFICE LISTS
[2025-02-03 08:08] LABS: Troponin I 0.04 ng/ml (0.00-0.034)
[2025-02-03] MEDS: FUROSEMIDE 40MG/4ML VIAL 40 MG IV (08:37)
[2025-02-03] MEDS: guaiFENesin 600 MG TAB.ER.12H PO ×2 (08:37→20:46)
[2025-02-03] MEDS: HYDRALAZINE HCL 25MG TABLET 100 MG PO ×3 (08:38→20:46)
--- NOTE | 2025-02-03 10:13 | HMH.PTEV ---
Physical Therapy Evaluation Rehab PT IP Evaluation Start: 02/02/25 22:15 Freq: ONCE Status: Active Protocol: Document 02/03/25 10:09 GENIE (Rec: 02/03/25 10:13 GENIE [id number]) Subjective/History History History Per H&P: 49-year-old female patient presents to ER with shortness of breath. She was seen at primary care 2 days ago and started on antibiotics. She states she has been taking them as directed but symptoms continued to worsen. Prior to her visit at primary care she had had symptoms for about 1 week. Symptoms consist of cough that at times is productive of yellow to green sputum. She has had wheezing and congestion. Also reports some nausea without vomiting or diarrhea. She did have chills but denied fever or bodyaches. She states years ago she was told she has COPD but there has been no mention of that further and she is not on any medications for this. Presentation in the ER she was hypertensive with a normal respiratory rate and afebrile. O2 sat was 97%. CT does not show clear evidence of a pneumonia. It is negative for PE. It does show possible lower lobe pneumonitis. She received Rocephin and Zithromax and fluid bolus in the ER. Subjective Subjective Pt reports she is w/c level for all mobility. At baseline, pt requires assistance by her for all slide board transfers, bed mobility, and w/c mobility. Pt owns a manual w/c, hospital bed, ramped entrance, slide board, and BSC. [facility] How much help from another person do you currently need... Turning from your None back to your side while in a flat bed without using bedrails? Moving from lying on None back to sitting on the side of a flat bed without using bedrails? Moving to and from a A little bed to a chair ( including a wheelchair)? Standing up from a A lot chair using your arms? (e.g., wheelchair, bedside chair) Walking in hospital Total room? Climbing 3-5 steps Total with a railing? Mobility Score 15 Mobility Level [facility] Mobility 4 Move to chair/commode Mobility Calculator Rehab PT IP Eval Objective Appearance Patient Behavior Appropriate,Cooperative Patient Orientation Person,Situation Difficulty following none instructions Speech Pattern Clear Ambulation Patient Able to No Ambulate Balance Ability to Arise Able, uses arms to help Sitting Balance Steady, safe Standing Balance Unsteady Transfers Bed Transfer Ability Supervision/Stand by Rehab PT IP prob,goals,plan Problems Date of Evaluation: 02/03/25 Rehab Potential Rehab Potential Innapropriate for Skilled Therapy Discharge Plan PT Discharge Plan Pt appears to be at her reported baseline with mobility . Pt not appropriate for skilled PT at this time d/t baseline mobility. PT recommending pt return home with continued 24/7 assistance from and HH PT services to address general strength. Eval Complexity Eval Charge Codes 89949 - Moderate Complexity PHYSICIAN CERTIFICATION: I certify the specified therapy services for Eliz Maldonado are required, authorized, and reviewed every 30 days.
[2025-02-03] MEDS: METOPROLOL SUCCINATE XL 100MG TABLET 100 MG PO (10:16)
[2025-02-03] MEDS: dilTIAZem ER 120MG CAPSULE 120 MG PO (10:16)
[2025-02-03] MEDS: APIXABAN 5MG TABLET 5 MG PO ×2 (10:16→20:46)
[2025-02-03] MEDS: HYDROCODONE/APAP 5/325 MG TABLET 1 TAB PO ×2 (10:17→21:00)
[2025-02-03] MEDS: dilTIAZem HCL 180MG CAP.ER.24H 180 MG PO (10:17)
[2025-02-03] MEDS: IRBESARTAN 150MG TAB 150 MG PO (10:17)
--- NOTE | 2025-02-03 10:17 | EXP.CARD.CON ---
History of Present Illness History of Present Illness Consult date: 02/03/25 Requesting physician: Mahamed Benavides Consult reason: shortness of breath Chief complaint: SOA History of present illness: This is a 49-year-old white female who presented to the emergency department with complaints of shortness of breath. The patient states that she saw her primary care provider 2 days prior to admission and was started on antibiotics for bronchitis. But she states that her shortness of breath has continued to worsen since that time. She states her symptoms initially started approximately a week before admission. She states that yesterday she was profoundly short of breath and felt like she was gasping for air. She states that she has never been that short of breath before. She states that the shortness of breath was severe and worse with exertion. It improved with rest but was not resolving. She had a dry nonproductive cough associated with the shortness of breath. She felt like she was wheezing and had lots of chest congestion. She also reports having some nausea. No vomiting. She denies any chest pain or pressure. She has been having chills and said she probably was having fevers at home but did not check her temperature. She also has been having worsening lower extremity edema and edema in her bilateral hands. She denies vomiting, diarrhea or constipation. The patient did have a CT of her chest that is concerning for pneumonia and pulmonary edema. She is currently on IV antibiotics. [facility] Disclaimer: The information contained in this section may have been updated after the patient was seen, as this information can be updated by other users. Medical History (Updated 02/03/25 @ 10:22 by Zuri Reddy APRN) Pulmonary hypertension Acute on chronic heart failure with preserved ejection fraction (HFpEF) Elevated troponin Fatigue Dyspnea Chest pressure Chest pain Chest pain Lactic acid acidosis Below knee amputation Abscess of axilla, left Left medial knee pain Discoloration of skin of toe Urinary tract infection Seizure disorder Fibromyalgia Cellulitis Pancreatitis History of gastroesophageal reflux (GERD) Atrial fibrillation with rapid ventricular response High blood pressure High cholesterol Afib Mood disorder CHF (congestive heart failure) SOB (shortness of breath) Acute pancreatitis Diabetes Skin lesion of breast Family history of lymphoma Dental infection Amputation of fifth toe of left foot Edema Tachycardia Other forms of angina pectoris Surgical History (Updated 02/03/25 @ 02:15 by Candace Baker APRN) Amputation above knee H/O cardiac ablation History of cholecystectomy History of appendectomy History of section History of hysterectomy History of colonoscopy Family History Other Family history of cancer Family history of myocardial infarction Family history of stroke Social History Smoking Status: Never smoker second hand exposure: Yes alcohol intake: former substance use type: denies use current occupational status: disabled Travel in the last 8 weeks?: None household members: spouse housing: house current occupational exposures/hazards: No caffeine: Yes Have you lived/traveled outside [place] in past 30 days?: No Contact w/someone who lives/traveled outside [place] past 30 days?: No Exposure to someone with infectious disease in past 14 days?: No Do you have a fever (greater than 100.4 F or 38 C)?: No Have you tested positive for COVID-19?: No Exposed to someone with COVID-19 in past 14 days?: No Do you have a sore throat?: No Do you have a cough?: No Do you have any weakness?: No Are you experiencing any nausea/vomitting?: No Do you have any diarrhea?: No Are you experiencing any unusual bleeding?: No Do you have any muscle aches/pain?: No Do you have any abdominal pain?: No Are you experiencing loss of taste or smell?: No Review of Systems Review of Systems Review of systems:: pertinent systems reviewed and negative unless documented below Constitutional Constitutional: Reports system reviewed and no additional complaints, except as documented, Reports fatigue and Reports lethargy Eyes Eyes: Reports system reviewed and no additional complaints, except as documented ENT Ears, Nose, Mouth, and Throat: Reports system reviewed and no additional complaints, except as documented *Cardiovascular Cardiovascular: Reports system reviewed and no additional complaints, except as documented, Denies chest pain, Reports dyspnea, Reports dyspnea on exertion, Reports edema, Reports leg edema and Reports orthopnea *Respiratory Respiratory: Reports system reviewed and no additional complaints, except as documented, Reports chest congestion, Reports cough, Reports dyspnea, Reports dyspnea on exertion and Reports wheezing *Gastrointestinal Gastrointestinal: Reports system reviewed and no additional complaints, except as documented and Reports nausea *Genitourinary Genitourinary: Reports system reviewed and no additional complaints, except as documented *Musculoskeletal Musculoskeletal: Reports system reviewed and no additional complaints, except as documented Integumentary/Breasts Skin/Breast: Reports system reviewed and no additional complaints, except as documented *Neurologic Neurologic: Reports system reviewed and no additional complaints, except as documented Psychiatric Psychiatric: Reports system reviewed and no additional complaints, except as documented Endocrine Endocrine: Reports system reviewed and no additional complaints, except as documented and Reports fatigue Hematologic/Lymphatic Hematologic/Lymphatic: Reports system reviewed and no additional complaints, except as documented Allergic/Immunologic Allergic/Immunologic: Reports system reviewed and no additional complaints, except as documented and Reports wheezing Exam Data for Last 24 hours Vital signs and Labs for Last 24 Hours: Temp Pulse Resp BP Pulse Ox O2 Del Method 97.9 F 87 16 191/86 H 99 Room Air 02/03/25 08:00 02/03/25 08:00 02/03/25 08:00 02/03/25 08:00 02/03/25 08:15 02/03/25 09:10 Laboratory Results - last 24 hr 02/02/25 18:14: SARS-CoV-2 (PCR) Not detected, Influenza Type A (PCR) Not detected, Influenza Type B (PCR) Not detected, RSV (PCR) Not detected, Rhinovirus (PCR) Not detected 02/02/25 18:26: WBC 9.1, RBC 4.00 L, Hgb 11.2 L, Hct 34.5 L, MCV 86.3, MCH 28.0, MCHC 32.5, RDW 14.5, Plt Count 264, MPV 9.7, Neut % (Auto) 75.0, Lymph % (Auto) 14.3, [place] % (Auto) 5.7, Eos % (Auto) 2.7, Baso % (Auto) 0.5, Neut # (Auto) 6.8, Lymph # (Auto) 1.3, [place] # (Auto) 0.5, Eos # (Auto) 0.3, Baso # (Auto) 0.1, D-Dimer 0.71 H, Sodium 134 L, Potassium 4.0, Chloride 100, Carbon Dioxide 27, Anion Gap 11.0, BUN 13, Creatinine 1.00, Estimated Creat Clear 65, Estimated GFR 59, Est GFR ( Amer) 71, Glucose 290 H, Calcium 8.8, Total Bilirubin 0.7, AST 37 H, ALT 35, Alkaline Phosphatase 75, Troponin I 0.02, NT-Pro-B Natriuret Pep 294 H, Total Protein 7.5, Albumin 3.8, Globulin 3.7 H, Albumin/Globulin Ratio 1.0 L, Lipase 91, Acetone Level None detected 02/02/25 18:30: VBG pH 7.30 L, VBG pCO2 53.8 H, VBG pO2 39.0, VBG HCO3 25.9, VBG Total CO2 27.6 H, VBG O2 Saturation 70.5 H, VBG Base Excess -0.5, VBG Lactic Acid 4.8 H 02/02/25 21:04: SARS-CoV-2 (PCR) Not detected, Influenza A Untype (PCR) Not detected, Influenza Type B (PCR) Not detected 02/02/25 21:07: Troponin I 0.03 02/02/25 23:16: Lactate 1.9, Chlamy pneumoniae PCR Not detected, Adenovirus (PCR) Not detected, B. pertussis DNA (PCR) Not detected, Coronavirus OC43 (PCR) Not detected, Coronavirus HKU1 (PCR) Not detected, Coronavirus 229E (PCR) Not detected, SARS-CoV-2 (PCR) Not detected, Coronavirus NL63 (PCR) Not detected, Human Metapneumovir PCR Not detected, Influenza A (H1) PCR Not detected, Influ A (H1N1/09) PCR Not detected, Influenza A (H3) PCR Not detected, Influenza Type A (PCR) Not detected, Influenza Type B (PCR) Not detected, M. pneumoniae (PCR) Not detected, Parainfluenza 1 (PCR) Not detected, Parainfluenza 2 (PCR) Not detected, Parainfluenza 3 (PCR) Not detected, Parainfluenza 4 (PCR) Not detected, RSV (PCR) Not detected, Entero/Rhino (PCR) Not detected 02/03/25 00:45: Troponin I 0.04 H 02/03/25 01:49: POC Glucose 210 H 02/03/25 03:29: Troponin I 0.05 H 02/03/25 05:36: WBC 9.2, RBC 3.90 L, Hgb 10.8 L, Hct 33.8 L, MCV 86.7, MCH 27.7, MCHC 32.0, RDW 14.4, Plt Count 248, MPV 9.8, Neut % (Auto) 73.7, Lymph % (Auto) 14.0, [place] % (Auto) 7.0, Eos % (Auto) 3.1, Baso % (Auto) 0.5, Neut # (Auto) 6.8, Lymph # (Auto) 1.3, [place] # (Auto) 0.6, Eos # (Auto) 0.3, Baso # (Auto) 0.1, Sodium 136, Potassium 4.0, Chloride 101, Carbon Dioxide 30, Anion Gap 9.0, BUN 16, Creatinine 1.00, Estimated Creat Clear 63, Estimated GFR 59, Est GFR ( Amer) 71, Glucose 232 H, Calcium 8.9, Total Bilirubin 0.7, AST 26 D, ALT 26 D, Alkaline Phosphatase 73, Troponin I 0.04 H, Total Protein 6.9, Albumin 3.6, Globulin 3.3 H, Albumin/Globulin Ratio 1.1 I & O for Last 24 hours: Intake & Output 01/31/25 02/01/25 02/02/25 02/03/25 23:59 23:59 23:59 23:59 Intake Total 850 / 1150 780 / 780 Output Total 1750 / 1750 Balance 850 / 1150 -970 / -970 Weight 363 lb 6.4 oz 363 lb 6.383 oz Constitutional Constitutional: no acute distress and morbidly obese *Routine HEENT Exam Head: Present normocephalic and atraumatic ENT: Present mucous membranes moist *Routine Neck Exam Neck: Present supple, full ROM and normal carotid upstroke; Absent JVD, carotid bruit or lymphadenopathy *Routine Respiratory Exam Respiratory: Present CTA bilaterally, normal respiratory effort, able to speak in complete sentences and symmetric chest movement *Routine Cardiovascular Exam Cardiovascular: Present RRR, Normal S1 and Normal S2; Absent murmur or gallop *Routine Abdominal Exam Abdominal: Present soft and normoactive bowel sounds; Absent tenderness, distended or organomegaly *Routine Extremities Exam Extremities: Present edema, full ROM, pulses intact and normal capillary refill; Absent cyanosis or clubbing *Routine Skin Exam Skin: Present intact and warm; Absent erythema *Routine Neurological Exam Neurological: Present alert, oriented X3 and CN II-XII intact; Absent sensory deficit or motor deficit Routine Psychiatric Exam Psychiatric: Present normal affect Meds Home Medications and Allergies Home Medications ?Medication ?Instructions ?Recorded ?Confirmed ?Type apixaban 5 mg tablet 5 mg PO BID atrial fibrillation 30 06/01/24 02/02/25 Rx days #60 tabs losartan 100 mg tablet 100 mg PO DAILY #90 tabs 06/01/24 02/03/25 Rx hydralazine 100 mg tablet 100 mg PO TID #90 tabs 10/26/24 02/03/25 Rx atorvastatin 40 mg tablet 40 mg PO HS 30 days #90 tabs 11/24/24 02/02/25 Rx trazodone 150 mg tablet 150 mg PO HS PRN Sleep 12/07/24 02/03/25 History diltiazem HCl 300 mg 300 mg PO DAILY 30 days #90 caps 12/08/24 02/03/25 Rx capsule,extended release 24 hr furosemide 40 mg tablet (Lasix) 40 mg PO BID 30 days #30 tabs 12/08/24 02/03/25 Rx finerenone 10 mg tablet (Kerendia) 10 mg PO DAILY #30 tabs 12/15/24 02/03/25 Rx metoprolol succinate 100 mg 100 mg PO DAILY #30 tabs 12/15/24 02/02/25 Rx tablet,extended release 24 hr (Toprol XL) hydrocodone 5 mg-acetaminophen 325 1 tab PO TIDP PRN Severe Pain 01/22/25 02/02/25 Rx mg tablet (Scale Score 7-10) #60 tabs desvenlafaxine succinate 100 mg 100 mg PO DAILY #30 tabs 01/29/25 02/02/25 Rx tablet,extended release 24 hr (Pristiq) doxycycline hyclate 100 mg capsule 100 mg PO BID 10 days #20 caps 01/29/25 02/02/25 Rx tirzepatide 2.5 mg/0.5 mL 2.5 mg (0.5 mL) SQ WEEKLY #2 mL 02/01/25 02/02/25 Rx subcutaneous pen injector insulin regular hum U-500 conc 500 160 unit SQ AM 02/02/25 02/02/25 History unit/mL subcutaneous soln insulin regular hum U-500 conc 500 See Rx Instructions SQ BID #6 mL 02/03/25 Rx unit/mL(3 mL) subcut pen pantoprazole 40 mg tablet,delayed 40 mg PO BID 02/03/25 02/03/25 History release New Prescriptions to Start Prescriptions: Allergies Allergy/AdvReac Type Severity Reaction Status Date / Time No Known Allergies Allergy Verified 01/29/25 08:45 Assessment and Plan *Assessment and plan (1) Elevated troponin: Status: Acute Category: Medical Code(s): R79.89 - Other specified abnormal findings of blood chemistry (2) Acute on chronic heart failure with preserved ejection fraction (HFpEF): Status: Acute Category: Medical Code(s): I50.33 - Acute on chronic diastolic (congestive) heart failure (3) Pulmonary hypertension: Status: Acute Category: Medical Code(s): I27.20 - Pulmonary hypertension, unspecified (4) Shortness of breath: Status: Acute Category: Medical Code(s): R06.02 - Shortness of breath (5) Pneumonia: Status: Acute Qualifiers: Laterality: unspecified laterality Lung location: unspecified part of lung Pneumonia type: due to unspecified organism Qualified Code(s): J18.9 - Pneumonia, unspecified organism Category: Medical Code(s): J18.9 - Pneumonia, unspecified organism (6) Acute hypercapnic respiratory failure: Status: Acute Category: Medical Code(s): J96.02 - Acute respiratory failure with hypercapnia (7) HHD (hypertensive heart disease): Status: Chronic Qualifiers: Heart failure presence: without heart failure Qualified Code(s): I11.9 - Hypertensive heart disease without heart failure Category: Medical Code(s): I11.9 - Hypertensive heart disease without heart failure (8) HLD (hyperlipidemia): Status: Chronic Qualifiers: Hyperlipidemia type: mixed hyperlipidemia Qualified Code(s): E78.2 - Mixed hyperlipidemia Category: Medical Code(s): E78.5 - Hyperlipidemia, unspecified (9) Diabetes mellitus: Status: Chronic Qualifiers: Diabetes mellitus complication status: with other specified complication Diabetes mellitus usp insulin use: unspecified supervisor intermediates insulin use status Diabetes mellitus type: type 2 Qualified Code(s): E11.69 - Type 2 diabetes mellitus with other specified complication Category: Medical Code(s): E11.9 - Type 2 diabetes mellitus without complications (10) Afib: Status: Acute Qualifiers: Atrial fibrillation type: unspecified Qualified Code(s): I48.91 - Unspecified atrial fibrillation Category: Medical Code(s): I48.91 - Unspecified atrial fibrillation (11) CAD (coronary artery disease): Status: Acute Qualifiers: Associated angina: without angina Coronary Disease-Associated Artery/Lesion type: [place] artery [place] vs. transplanted heart: [place] heart Qualified Code(s): I25.10 - Atherosclerotic heart disease of [place] coronary artery without angina pectoris Category: Medical Code(s): I25.10 - Atherosclerotic heart disease of [place] coronary artery without angina pectoris (12) Status post below knee amputation of right lower extremity: Status: Acute Category: Surgical Code(s): Z89.511 - Acquired absence of right leg below knee (13) Morbid obesity: Status: Acute Category: Medical Code(s): E66.01 - Morbid (severe) obesity due to excess calories Plan Plan: 1. The patient was admitted to the hospital with acute on chronic HFpEF and pneumonia. She is getting IV antibiotics. Will defer treatment of the pneumonia to the hospitalist. 2. The patient is having an acute on chronic exacerbation of HFpEF. She will be diuresed with Lasix 80 mg IV twice daily. 3. Continue Kerendia for HFpEF. 4. The patient did have an elevated troponin consistent with a non-STEMI. This is most likely a type II non-STEMI from her chronic HFpEF and severe pulmonary hypertension. No plans for invasive left cardiac catheterization at this time. She just underwent left cardiac catheterization 2 months ago with patent CAD. 5. Coronary artery disease is present. Recommend aspirin 81 mg daily, statin and a beta-eduin. 6. Her blood pressure is elevated. Restart her metoprolol, losartan, hydralazine and diltiazem for better blood pressure control. 7. Her LDL goal is less than 55. Her LDL is 69 in November 2024. She is on a statin. Will repeat a lipid panel in the morning. 8. The patient does have a history of paroxysmal atrial fibrillation. She is status post ablation at [facility] at the end of December 2024. Continue Eliquis for long-term anticoagulation. 9. The patient is status post right below the knee amputation. 10. Further recommendations will be made pending the patient's response to treatment. Thank you for the opportunity to help participate in the care of this patient. All recommendations and orders are per Dr. Bain.
--- NOTE | 2025-02-03 10:22 | HMH.OTEV ---
OT Evaluation Rehab OT IP Evaluation Start: 02/02/25 22:15 Freq: ONCE Status: Active Protocol: Document 02/03/25 10:16 CHARISSE (Rec: 02/03/25 10:21 CHARISSE [id number]) Rehab OT IP Assessment Subjective History Per HPI narrative: Eliz Maldonado is a 49-year-old female with a history of CHF, diabetes, A-fib status post ablation on January 11 at [place], right BKA, GERD, high cholesterol, hypertension who presents to the emergency department for complaints of cough and shortness of breath. Patient states that for about 2 weeks, she has had shortness of breath and a mostly dry cough with occasional clear sputum. She was seen by PCP on the seventh of this month and was told that she had bronchitis and has been on antibiotic since. She states that today, her shortness of breath got worse. She does report some chest pain over this time as well intermittently in the middle of her chest. She reports subjective fevers. Subjective I do not feel any different. Pt was sitting upright in bed with bed support when therapy entered this AM. Pt agreed to OT eval this AM. Pt orient x3. Pt reported they live with in have a ramp entrance. Pt reported they use w/c for FM. Pt reported they need assist with ADLs and IADLs and transfers. pt reported they have not noticed a decline in functional performance. Pt reported they have a hospital bed at home. Pt's also present for session and added they have a shower chair and sliding board and use a gait belt to assist with transfers. Pt agreed to sit on EOB. Pt able to scoot to EOB with SBA. Pt able to tolerate sitting at EOB for 2 minutes demo good static sitting balance. Pt then able to scoot back into bed and use UB to adjust self in bed. Pt left sitting upright in bed supported by bed with in room and call light and all other needs within reach. Objective Patient Orientation Person,Place,Situation Right Upper WFL Extremity Gross ROM Left Upper Extremity WFL Gross ROM Bed Mobility bed mobility-scooting Assist Level Supervision/Stand by Decrease in No Endurance Rehab OT IP prob,goals,plan Problems Date of Evaluation: 02/03/25 Rehab Potential Rehab Potential Innapropriate for Skilled Therapy Discharge Plan OT Discharge Plan At this time, pt is at baseline in functional performance and would not benefit from skilled acute OT services and interventions while admitted at [facility]. Once medically stable, pt is able to DC home and OT HH services and warranted to prevent functional decline and improve QOL. Eval Complexity Eval Charge Codes 65544 - Moderate Complexity PHYSICIAN CERTIFICATION: I certify the specified therapy services for Eliz Maldonado are required, authorized, and reviewed every 30 days.
[2025-02-03] MEDS: SODIUM CHLORIDE 3% 15ML NEB 3 ML IH (10:40)
--- NOTE | 2025-02-03 11:40 | P.PN_ITS ---
Subjective *Date: 02/03/25 *Time: 16:59 Interval history: Stable on room air this morning. Feeling a bit better. Complaining of leg cramping and leg pain. Would like her pain meds resumed. Tolerating p.o. intake. Cough minimally productive. Afebrile. Still feels somewhat subjectively short of breath however Medical Exam Vital signs and Labs for Last 24 Hours: Vital Signs Temp Pulse Pulse Resp BP BP Pulse Ox 02/03/25 10:41 77 18 02/03/25 10:41 80 02/03/25 10:41 77 02/03/25 09:10 02/03/25 08:15 99 02/03/25 08:00 97.9 F 87 16 191/86 H 99 02/03/25 06:36 02/03/25 06:03 61 02/03/25 06:03 61 02/03/25 05:00 02/03/25 04:00 98.4 F 79 16 172/84 H 96 02/03/25 03:00 02/03/25 01:38 88 02/03/25 00:50 02/02/25 23:00 02/02/25 22:00 98.4 F 86 16 202/108 H 96 02/02/25 21:51 98.2 F 87 21 194/106 H 02/02/25 21:32 02/02/25 21:00 86 23 195/81 H 97 02/02/25 20:33 89 182/85 H 96 02/02/25 19:00 88 21 189/82 H 97 02/02/25 18:05 98.2 F 96 H 18 187/95 H 97 O2 Del Method 02/03/25 10:41 02/03/25 10:41 02/03/25 10:41 02/03/25 09:10 Room Air 02/03/25 08:15 Room Air 02/03/25 08:00 Room Air 02/03/25 06:36 Room Air 02/03/25 06:03 02/03/25 06:03 02/03/25 05:00 Room Air 02/03/25 04:00 Room Air 02/03/25 03:00 Room Air 02/03/25 01:38 02/03/25 00:50 Room Air 02/02/25 23:00 Room Air 02/02/25 22:00 Room Air 02/02/25 21:51 Room Air 02/02/25 21:32 Room Air 02/02/25 21:00 02/02/25 20:33 02/02/25 19:00 Room Air 02/02/25 18:05 Room Air Intake and Output 02/02/25 02/03/25 02/03/25 23:59 07:59 15:59 Intake Total 850 / 1150 300 / 780 480 / 780 Output Total 550 / 1750 1200 / 1750 Balance 850 / 1150 -250 / -970 -720 / -970 Intake: Intake, Oral Amount 300 / 780 480 / 780 Intake, Total IV Amount 850 / 850 Azithromycin 500 mg In 0.9 % 250 / 250 Sodium Chloride 250 ml @ 250 mls/hr IV ONCE ONE Rx#:[id number] Ceftriaxone Sodium 2 gm In 0.9 100 / 100 % Sodium Chloride 100 ml @ 200 mls/hr IV ONCE ONE Rx#:[id number] Ringers Solution,Lactated 500 500 / 500 ml @ 999 mls/hr IV .Q31M ONE Rx #:[id number] Output: Output, Urine Amount 550 / 1750 1200 / 1750 Other: Number of Unmeasured Voids 1 Number of Bowel Movements 1 Weight 164.835 kg 164.835 kg Patient Weight 02/03/25 23:59 Weight 164.835 kg Laboratory Results - last 24 hr 02/02/25 18:14: SARS-CoV-2 (PCR) Not detected, Influenza Type A (PCR) Not detected, Influenza Type B (PCR) Not detected, RSV (PCR) Not detected, Rhinovirus (PCR) Not detected 02/02/25 18:26: WBC 9.1, RBC 4.00 L, Hgb 11.2 L, Hct 34.5 L, MCV 86.3, MCH 28.0, MCHC 32.5, RDW 14.5, Plt Count 264, MPV 9.7, Neut % (Auto) 75.0, Lymph % (Auto) 14.3, [place] % (Auto) 5.7, Eos % (Auto) 2.7, Baso % (Auto) 0.5, Neut # (Auto) 6.8, Lymph # (Auto) 1.3, [place] # (Auto) 0.5, Eos # (Auto) 0.3, Baso # (Auto) 0.1, D- Dimer 0.71 H, Sodium 134 L, Potassium 4.0, Chloride 100, Carbon Dioxide 27, Anion Gap 11.0, BUN 13, Creatinine 1.00, Estimated Creat Clear 65, Estimated GFR 59, Est GFR ( Amer) 71, Glucose 290 H, Calcium 8.8, Total Bilirubin 0.7, AST 37 H, ALT 35, Alkaline Phosphatase 75, Troponin I 0.02, NT-Pro-B Natriuret Pep 294 H, Total Protein 7.5, Albumin 3.8, Globulin 3.7 H, Albumin/Globulin Ratio 1.0 L, Lipase 91, Acetone Level None detected 02/02/25 18:30: VBG pH 7.30 L, VBG pCO2 53.8 H, VBG pO2 39.0, VBG HCO3 25.9, VBG Total CO2 27.6 H, VBG O2 Saturation 70.5 H, VBG Base Excess -0.5, VBG Lactic Acid 4.8 H 02/02/25 21:04: SARS-CoV-2 (PCR) Not detected, Influenza A Untype (PCR) Not detected, Influenza Type B (PCR) Not detected 02/02/25 21:07: Troponin I 0.03 02/02/25 23:16: Lactate 1.9, Chlamy pneumoniae PCR Not detected, Adenovirus (PCR) Not detected, B. pertussis DNA (PCR) Not detected, Coronavirus OC43 (PCR) Not detected, Coronavirus HKU1 (PCR) Not detected, Coronavirus 229E (PCR) Not detected, SARS-CoV-2 (PCR) Not detected, Coronavirus NL63 (PCR) Not detected, Human Metapneumovir PCR Not detected, Influenza A (H1) PCR Not detected, Influ A (H1N1/09) PCR Not detected, Influenza A (H3) PCR Not detected, Influenza Type A (PCR) Not detected, Influenza Type B (PCR) Not detected, M. pneumoniae (PCR) Not detected, Parainfluenza 1 (PCR) Not detected, Parainfluenza 2 (PCR) Not detected, Parainfluenza 3 (PCR) Not detected, Parainfluenza 4 (PCR) Not detected, RSV (PCR) Not detected, Entero/Rhino (PCR) Not detected 02/03/25 00:45: Troponin I 0.04 H 02/03/25 01:49: POC Glucose 210 H 02/03/25 03:29: Troponin I 0.05 H 02/03/25 05:36: WBC 9.2, RBC 3.90 L, Hgb 10.8 L, Hct 33.8 L, MCV 86.7, MCH 27.7, MCHC 32.0, RDW 14.4, Plt Count 248, MPV 9.8, Neut % (Auto) 73.7, Lymph % (Auto) 14.0, [place] % (Auto) 7.0, Eos % (Auto) 3.1, Baso % (Auto) 0.5, Neut # (Auto) 6.8, Lymph # (Auto) 1.3, [place] # (Auto) 0.6, Eos # (Auto) 0.3, Baso # (Auto) 0.1, Sodium 136, Potassium 4.0, Chloride 101, Carbon Dioxide 30, Anion Gap 9.0, BUN 16, Creatinine 1.00, Estimated Creat Clear 63, Estimated GFR 59, Est GFR ( Amer) 71, Glucose 232 H, Calcium 8.9, Total Bilirubin 0.7, AST 26 D, ALT 26 D, Alkaline Phosphatase 73, Troponin I 0.04 H, Total Protein 6.9, Albumin 3.6, Globulin 3.3 H, Albumin/Globulin Ratio 1.1 I & O for Labs for Last 24 Hours: Intake & Output 01/31/25 02/01/25 02/02/25 02/03/25 23:59 23:59 23:59 23:59 Intake Total 850 / 1150 780 / 780 Output Total 1750 / 1750 Balance 850 / 1150 -970 / -970 Weight 164.835 kg 164.835 kg Constitutional: Present mild distress, morbidly obese, chronically ill appearing and cooperative Head: Present atraumatic and normocephalic ENT: Present normal exam Respiratory: Present normal respiratory effort; Absent rhonchi, wheezes or crackles Cardiac: Present Reg Rate and Rhythm GI: Present soft and normal bowel sounds; Absent distention or tenderness Extremities: Present full ROM and edema (2+ to knee and left leg) Comment:: right BKA Skin: Present intact; Absent erythema Neuro: Present Grossly Intact, alert, awake, oriented x 3 and moves all extremities Assessment and Plan *Assessment and plan (1) Acute on chronic heart failure with preserved ejection fraction (HFpEF): Status: Acute Category: Medical Code(s): I50.33 - Acute on chronic diastolic (congestive) heart failure (2) Pulmonary hypertension: Status: Acute Category: Medical Code(s): I27.20 - Pulmonary hypertension, unspecified (3) Acute hypercapnic respiratory failure: Status: Acute Category: Medical Code(s): J96.02 - Acute respiratory failure with hypercapnia (4) CAD (coronary artery disease): Status: Acute Qualifiers: Associated angina: without angina Coronary Disease-Associated Artery/Lesion type: [place] artery [place] vs. 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 status Diabetes mellitus type: type 2 Qualified Code(s): E11.69 - Type 2 diabetes mellitus with other specified complication Category: Medical Code(s): E11.9 - Type 2 diabetes mellitus without complications (7) High blood pressure: Status: Acute Qualifiers: Hypertension type: primary hypertension Qualified Code(s): I10 - E ssential (primary) hypertension Category: Medical Code(s): I10 - Essential (primary) hypertension (8) HLD (hyperlipidemia): Status: Chronic Qualifiers: Hyperlipidemia type: mixed hyperlipidemia Qualified Code(s): E78.2 - Mixed hyperlipidemia Category: Medical Code(s): E78.5 - Hyperlipidemia, unspecified (9) Afib: Status: Acute Qualifiers: Atrial fibrillation type: unspecified Qualified Code(s): I48.91 - Unspecified atrial fibrillation Category: Medical Code(s): I48.91 - Unspecified atrial fibrillation (10) Morbid obesity: Status: Acute Category: Medical Code(s): E66.01 - Morbid (severe) obesity due to excess calories (11) Pneumonia: Status: Acute Qualifiers: Laterality: unspecified laterality Lung location: unspecified part of lung Pneumonia type: due to unspecified organism Qualified Code(s): J18.9 - Pneumonia, unspecified organism Category: Medical Code(s): J18.9 - Pneumonia, unspecified organism Plan Patient presents to ER with complaints of shortness of breath for over a week. No improvement after 2 days of oral antibiotics from primary care. Also complained of chest pain. In the ER she received IV fluids, Rocephin, and Zithromax. After discussing the case with ER provider I agreed to admit for further evaluation and treatment. Etiology of acute hypercapnic respiratory failure could include pneumonia, heart failure exacerbation, or COPD exacerbatio n. She has been told in the past that she had COPD but never placed on any medications and she is not hurting thing about this for years. She is not a smoker however she is exposed to secondhand smoke. CT does show small bilateral pleural effusions and concern for pulmonary edema as well as possible pneumonitis in the lower lobes. will hold off on further IV fluids as her BNP is slightly elevated and she does have history of HFpEF. Renal function is within normal limits, she does not appear to be dry. Initial troponin 0.02, 0.03 and third is 0.04. EKG showed a sinus rhythm without acute ST changes will repeat EKG in the morning. Suspect type 2 NSTEMI. Does have history of atrial fib, status post ablation and is on Eliquis at home. Home meds will be resumed once verified by pharmacy. Full respiratory panel is pending. Negative for flu and COVID in the ER. Will continue Rocephin and Zithromax. Provide breathing treatments both routine and as needed sliding scale insulin coverage. Acute on chronic HFpEF Hypertension - Will advance diuresis today. Increase Lasix to 80 mg IV twice daily. Monitor for improvement in breathing with negative volume status. Stable on room air. Goal sats greater 90% - Discussed case with cardiology, recommend continuing Eliquis 5 mg twice daily, Lipitor 40 mg nightly, diltiazem 300 mg daily, finerenone 10 mg daily, losartan 100 mg daily, and metoprolol succinate 100 mg daily - Kidney function normal with BUN 16, creatinine 1. Morning glucose 232. White count of 9.2. Repeat CBC, CMP, magnesium ordered for the morning Diabetes - Repeat A1c ordered for the morning. Last A1c 3 months ago 8.6 - Following with endocrinology now. On U-500 daily. Resume home regimen with U-500 160 units daily and sliding scale. Fingersticks ACHS Mood disorder Neuropathy - Continue desvenlafaxine extended release 100 mg daily, hydrocodone 5/325 as needed every 8 hours, initiate tizanidine 4 mg as needed 3 times a day for muscle spasm, continue trazodone 150 mg nightly for sleep Morbid obesity complicates all aspects care Full code Cardiac/diabetic diet Eliquis 5 mg twice daily
[2025-02-03] MEDS: TIZANIDINE 4MG TABLET 4 MG PO (12:00)
[2025-02-03 12:02] LABS: POC Glucose,Bedside 334 gm/dL (70-110)
--- NOTE | 2025-02-03 13:35 | SW/DCPLANNER ---
Spoke with patient regarding home health services once she is medically stable and ready for discharge. Patient stated that she feels that they dont help her and that she is not interested in home health at this time. Patient stated that if she does end up needing home health once she gets home that she will let her primary care provider order it. Bc [facility]
[2025-02-03 14:02] LABS: POC Glucose,Bedside 366 gm/dL (70-110)
--- NOTE | 2025-02-03 15:21 | ECG_ITS ---
APPROVED REPORT Exam: Resting ECG HR:49 bpm ECG Measurements Heart Rate 49 AXES AR 193 P 53 QRSd 88 QRS 7 QT 486 T 50 QTc 454 Conclusion SINUS BRADYCARDIA with borderline LAD and late R wave progressio ABNORMAL ECG UNCONFIRMED REPORT Electronically signed by : Jude Betancur MD 02/04/2025 13:12:03
[2025-02-03] MEDS: FUROSEMIDE 100MG/10ML VIAL 80 MG IV (16:22)
[2025-02-03 16:33] LABS: POC Glucose,Bedside 253 gm/dL (70-110)
[2025-02-03] MEDS: PANTOPRAZOLE 40MG TABLET 40 MG PO (20:46)
[2025-02-03] MEDS: ATORVASTATIN 40MG TABLET 40 MG PO (20:46)
[2025-02-03 21:03] LABS: POC Glucose,Bedside 229 gm/dL (70-110)
[2025-02-03] MEDS: PROCHLORPERAZINE 10MG/2ML VIAL 5 MG IV (23:45)
[2025-02-04] VITALS (7 sets, daily range): BP systolic 117–142; BP diastolic 50–78; PULSE 50–76; RESP 16–18; TEMP 36.6; O2SAT 93–98; BMI 57.1
[2025-02-04] MEDS: AZITHROMYCIN 500 MG in 0.9 % SODIUM CHLORIDE 250 ML 250 MG IV (03:52)
[2025-02-04] MEDS: IPRATROPIUM/ALBUTEROL 3 ML NEB IH ×2 (05:51→11:07)
[2025-02-04 06:57] LABS: POC Glucose,Bedside 71 gm/dL (70-110)
[2025-02-04 06:57] LABS: POC Glucose,Bedside 60 gm/dL (70-110)
[2025-02-04 07:07] LABS: POC Glucose,Bedside 66 gm/dL (70-110)
[2025-02-04 07:11] LABS: Hematocrit 34.6 % (37.0-47.0); Hemoglobin 10.8 g/dL (12.2-16.2); Immature Granulocytes % 0.9 %; Mean Corpuscular HGB Conc 31.2 g/dL (31.8-35.4); Mean Corpuscular Hemoglobin 27.3 pg (27.0-31.2); Mean Corpuscular Volume 87.6 fl (81-99); Nucleated Red Blood Cells % 0 %; Platelet Count 288 K/mm3 (142-424); Red Blood Count 3.95 M/mm3 (4.20-5.40); Red Cell Distribution Width-SD 48.0 fL; White Blood Count 12.8 K/mm3 (4.8-10.8)
[2025-02-04 07:31] LABS: Anion Gap 12.4 mEq/L (5-15); Blood Urea Nitrogen 30 mg/dl (7-17); Calcium 9.3 mg/dl (8.4-10.2); Carbon Dioxide 29 mmol/L (22.0-30.0); Chloride 99 mmol/L (98-107); Cholesterol 95 mg/dl (140-200); Creatinine Clearance Estimated 34 mL/min (50-200); Creatinine,Serum 1.90 mg/dl (0.52-1.04); Estimated Glomerular Filt Rate 28 ml/min (>60); GFR (African American) 34 ML/MIN (>60); Glucose 62 mg/dl (74-100); HDL Cholesterol 42 mg/dl (40-60); Potassium 3.4 mmoL/L (3.5-5.1); Sodium 137 mmol/L (136-145); Triglycerides 114 mg/dl (30-150)
[2025-02-04] MEDS: DEXTROSE 50% 50ML SYRINGE (CRASH CART) 25 ML IVP (08:11)
[2025-02-04 08:31] LABS: POC Glucose,Bedside 85 gm/dL (70-110)
[2025-02-04 09:04] LABS: Hemoglobin A1C 8.5 % (4.0-6.0)
--- NOTE | 2025-02-04 10:00 | EXP.DC.SUM ---
General Admission date:: 02/02/25 Discharge date: 02/04/25 HPI HPI HPI: 49-year-old female patient presents to ER with shortness of breath. She was seen at primary care 2 days ago and started on antibiotics. She states she has been taking them as directed but symptoms continued to worsen. Prior to her visit at primary care she had had symptoms for about 1 week. Symptoms consist of cough that at times is productive of yellow to green sputum. She has had wheezing and congestion. Also reports some nausea without vomiting or diarrhea. She did have chills but denied fever or bodyaches. She states years ago she was told she has COPD but there has been no mention of that further and she is not on any medications for this. Presentation in the ER she was hypertensive with a normal respiratory rate and afebrile. O2 sat was 97%. CT does not show clear evidence of a pneumonia. It is negative for PE. It does show possible lower lobe pneumonitis. She received Rocephin and Zithromax and fluid bolus in the ER. Hospital Course Hospital Course Hospital Course: Patient presents to ER with complaints of shortness of breath for over a week. No improvement after 2 days of oral antibiotics from primary care. Also complained of chest pain. In the ER she received IV fluids, Rocephin, and Zithromax. After discussing the case with ER provider I agreed to admit for further evaluation and treatment. Etiology of acute hypercapnic respiratory failure could include pneumonia, heart failure exacerbation, or COPD exacerbation. She has been told in the past that she had COPD but never placed on any medications and she is not hurting thing about this for years. She is not a smoker however she is exposed to secondhand smoke. CT does show small bilateral pleural effusions and concern for pulmonary edema as well as possible pneumonitis in the lower lobes. will hold off on further IV fluids as her BNP is slightly elevated and she does have history of HFpEF. Renal function is within normal limits, she does not appear to be dry. Initial troponin 0.02, 0.03 and third is 0.04. EKG showed a sinus rhythm without acute ST changes will repeat EKG in the morning. Suspect type 2 NSTEMI. Does have history of atrial fib, status post ablation and is on Eliquis at home. Home meds will be resumed once verified by pharmacy. Full respiratory panel is negative. Treated with appear antibiotics with azithromycin and Rocephin during admission. Completed 3-day course during admission. No further treatment needed. Given her clinical stability on room air, provided diuresis, and stable white count, will discharge home with further management as an outpatient with cardiology. Problems addressed as follows: Acute on chronic HFpEF Hypertension JULIETA - Concern for some volume overload and pulmonary edema on admission versus atypical pneumonia. Treated empirically with 3 days of antibiotics including ceftriaxone and azithromycin. Low concern for significant pneumonia or lobar pneumonia. Given her improvement with diuresis, stable discharge home. Cardiology evaluated during admission. No significant adjustments made to medications at discharge. Remained stable on room air with no oxygen requirement during admission. Patient developed an acute kidney injury from diuresis. Baseline creatinine 1.0. Increased to 1.9. Showed improvement with holding diuretics to 1.7 prior to discharge. Recommend repeat BMP in 3 to 5 days to monitor improvement in kidney function back to normal. The patient will need to be discharged on the following cardiac medications: Aspirin 81 mg daily Eliquis 5 mg p.o. twice daily Lipitor 40 mg p.o. nightly Diltiazem ER 300 mg daily Lasix 40 mg p.o. twice daily Hydralazine 100 mg p.o. 3 times daily Losartan 100 mg daily Toprol XL 100 mg daily Kerendia 10 mg daily Diabetes: Repeat A1c 8.5. Following with endocrinology, follow-up in February. On U-500 twice daily, continue home regimen at discharge. Mood disorder Neuropathy - Continue desvenlafaxine extended release 100 mg daily, hydrocodone 5/325 as needed every 8 hours, initiate tizanidine 4 mg as needed 3 times a day for muscle spasm, continue trazodone 150 mg nightly for sleep Morbid obesity complicates all aspects care Total time spent on discharge 32 minutes in counseling, documentation, chart review, and direct care with patient. Exam Data for Last 24 hours Vital signs and Labs for Last 24 Hours: Temp Pulse Resp BP Pulse Ox O2 Del Method 97.9 F 58 L 16 117/53 L 96 Room Air 02/04/25 07:38 02/04/25 08:00 02/04/25 07:38 02/04/25 07:38 02/04/25 07:38 02/04/25 07:38 Laboratory Results - last 24 hr 02/03/25 11:35: POC Glucose 334 H* 02/03/25 13:49: POC Glucose 366 H* 02/03/25 16:20: POC Glucose 253 H 02/03/25 20:50: POC Glucose 229 H 02/04/25 05:44: POC Glucose 71 02/04/25 06:13: POC Glucose 60 L 02/04/25 06:19: WBC 12.8 H D, RBC 3.95 L, Hgb 10.8 L, Hct 34.6 L, MCV 87.6, MCH 27.3, MCHC 31.2 L, RDW 15.0, Plt Count 288, MPV 9.7, Neut % (Auto) 77.7, Lymph % (Auto) 11.7, [place] % (Auto) 7.3, Eos % (Auto) 2.0, Baso % (Auto) 0.4, Neut # (Auto) 9.9 H, Lymph # (Auto) 1.5, [place] # (Auto) 0.9, Eos # (Auto) 0.3, Baso # (Auto) 0.1, Sodium 137, Potassium 3.4 L, Chloride 99, Carbon Dioxide 29, Anion Gap 12.4, BUN 30 H D, Creatinine 1.90 H D, Estimated Creat Clear 34, Estimated GFR 28 L, Est GFR ( Amer) 34 L D, Glucose 62 L, Hemoglobin A1c 8.5 H, Calcium 9.3, Triglycerides 114, Cholesterol 95 L, LDL Cholesterol Direct 39.22 L, VLDL Cholesterol 23, HDL Cholesterol 42, Cholesterol/HDL Ratio 2.3 02/04/25 06:55: POC Glucose 66 L 02/04/25 08:10: POC Glucose 85 I & O for Last 24 hours: Intake & Output 02/01/25 02/02/25 02/03/25 02/04/25 23:59 23:59 23:59 23:59 Intake Total 850 / 1150 1620 / 1820 500 / 500 Output Total 2099 / 2099 150 / 150 Balance 850 / 1150 -480 / -280 350 / 350 Weight 164.835 kg 164.835 kg 165.38 kg Constitutional Constitutional: no acute distress, morbidly obese, chronically ill appearing and cooperative *Routine HEENT Exam Head: Present normocephalic Eye: Present EOMI and PERRL ENT: Present mucous membranes moist *Routine Neck Exam Neck: Present supple; Absent lymphadenopathy *Routine Respiratory Exam Respiratory: Present CTA bilaterally and distant breath sounds; Absent rhonchi, wheezes or crackles *Routine Cardiovascular Exam Cardiovascular: Present RRR *Routine Abdominal Exam Abdominal: Present soft and normoactive bowel sounds; Absent tenderness *Routine Rectal Exam Patient deferred: visual exam *Routine Exam Patient deferred: external exam *Routine Extremities Exam Extremities: Present edema (improved, minimal); Absent cyanosis or clubbing Comments: right BKA *Routine Skin Exam Skin: Present warm and wounds; Absent rash *Routine Neurological Exam Neurological: Present alert, oriented X3 and moving all extremities; Absent altered mental status Results Data Completed and Pending Labs on day of discharge: Labs from last 24 hours 02/04/25 02/04/25 02/04/25 08:10 06:55 06:19 WBC 12.8 H D RBC 3.95 L Hgb 10.8 L Hct 34.6 L MCV 87.6 MCH 27.3 MCHC 31.2 L RDW 15.0 Plt Count 288 MPV 9.7 Neut % (Auto) 77.7 Lymph % (Auto) 11.7 [place] % (Auto) 7.3 Eos % (Auto) 2.0 Baso % (Auto) 0.4 Neut # (Auto) 9.9 H Lymph # (Auto) 1.5 [place] # (Auto) 0.9 Eos # (Auto) 0.3 Baso # (Auto) 0.1 Sodium 137 Potassium 3.4 L Chloride 99 Carbon Dioxide 29 Anion Gap 12.4 BUN 30 H D Creatinine 1.90 H D Estimated Creat Clear 34 Estimated GFR 28 L Est GFR ( Amer) 34 L D Glucose 62 L POC Glucose 85 66 L Hemoglobin A1c 8.5 H Calcium 9.3 Triglycerides 114 Cholesterol 95 L LDL Cholesterol Direct 39.22 L VLDL Cholesterol 23 HDL Cholesterol 42 Cholesterol/HDL Ratio 2.3 02/04/25 02/04/25 02/03/25 06:13 05:44 20:50 WBC RBC Hgb Hct MCV MCH MCHC RDW Plt Count MPV Neut % (Auto) Lymph % (Auto) [place] % (Auto) Eos % (Auto) Baso % (Auto) Neut # (Auto) Lymph # (Auto) [place] # (Auto) Eos # (Auto) Baso # (Auto) Sodium Potassium Chloride Carbon Dioxide Anion Gap BUN Creatinine Estimated Creat Clear Estimated GFR Est GFR ( Amer) Glucose POC Glucose 60 L 71 229 H Hemoglobin A1c Calcium Triglycerides Cholesterol LDL Cholesterol Direct VLDL Cholesterol HDL Cholesterol Cholesterol/HDL Ratio 02/03/25 02/03/25 02/03/25 16:20 13:49 11:35 WBC RBC Hgb Hct MCV MCH MCHC RDW Plt Count MPV Neut % (Auto) Lymph % (Auto) [place] % (Auto) Eos % (Auto) Baso % (Auto) Neut # (Auto) Lymph # (Auto) [place] # (Auto) Eos # (Auto) Baso # (Auto) Sodium Potassium Chloride Carbon Dioxide Anion Gap BUN Creatinine Estimated Creat Clear Estimated GFR Est GFR ( Amer) Glucose POC Glucose 253 H 366 H* 334 H* Hemoglobin A1c Calcium Triglycerides Cholesterol LDL Cholesterol Direct VLDL Cholesterol HDL Cholesterol Cholesterol/HDL Ratio DS: Diagnosis Discharge Diagnosis (1) Acute on chronic heart failure with preserved ejection fraction (HFpEF): Status: Acute Code(s): I50.33 - Acute on chronic diastolic (congestive) heart failure (2) Pulmonary hypertension: Status: Acute Code(s): I27.20 - Pulmonary hypertension, unspecified (3) Acute hypercapnic respiratory failure: Status: Acute Code(s): J96.02 - Acute respiratory failure with hypercapnia (4) CAD (coronary artery disease): Status: Acute Code(s): I25.10 - Atherosclerotic heart disease of [place] coronary artery without angina pectoris Qualifiers: Associated angina: without angina Coronary Disease-Associated Artery/Lesion type: [place] artery [place] vs. transplanted heart: [place] heart Qualified Code(s): I25.10 - Atherosclerotic heart disease of [place] coronary artery without angina pectoris (5) NSTEMI (non-ST elevated myocardial infarction): Status: Acute Code(s): I21.4 - Non-ST elevation (NSTEMI) myocardial infarction (6) Diabetes mellitus: Status: Chronic Code(s): E11.9 - Type 2 diabetes mellitus without complications Qualifiers: Diabetes mellitus complication status: with other specified complication Diabetes mellitus salvage determiner insulin use: unspecified fdc insulin use status Diabetes mellitus type: type 2 Qualified Code(s): E11.69 - Type 2 diabetes mellitus with other specified complication (7) High blood pressure: Status: Acute Code(s): I10 - Essential (primary) hypertension Qualifiers: Hypertension type: primary hypertension Qualified Code(s): I10 - Essential (primary) hypertension (8) HLD (hyperlipidemia): Status: Chronic Code(s): E78.5 - Hyperlipidemia, unspecified Qualifiers: Hyperlipidemia type: mixed hyperlipidemia Qualified Code(s): E78.2 - Mixed hyperlipidemia (9) Afib: Status: Acute Code(s): I48.91 - Unspecified atrial fibrillation Qualifiers: Atrial fibrillation type: unspecified Qualified Code(s): I48.91 - Unspecified atrial fibrillation (10) Morbid obesity: Status: Acute Code(s): E66.01 - Morbid (severe) obesity due to excess calories (11) Pneumonia: Status: Acute Code(s): J18.9 - Pneumonia, unspecified organism Qualifiers: Laterality: unspecified laterality Lung location: unspecified part of lung Pneumonia type: due to unspecified organism Qualified Code(s): J18.9 - Pneumonia, unspecified organism Meds Home Medications and Allergies Home Medications ?Medication ?Instructions ?Recorded ?Confirmed ?Type apixaban 5 mg tablet 5 mg PO BID atrial fibrillation 30 06/01/24 02/02/25 Rx days #60 tabs losartan 100 mg tablet 100 mg PO DAILY #90 tabs 06/01/24 02/03/25 Rx hydralazine 100 mg tablet 100 mg PO TID #90 tabs 10/26/24 02/03/25 Rx atorvastatin 40 mg tablet 40 mg PO HS 30 days #90 tabs 11/24/24 02/02/25 Rx trazodone 150 mg tablet 150 mg PO HS PRN Sleep 12/07/24 02/03/25 History diltiazem HCl 300 mg 300 mg PO DAILY 30 days #90 caps 12/08/24 02/03/25 Rx capsule,extended release 24 hr furosemide 40 mg tablet (Lasix) 40 mg PO BID 30 days #30 tabs 12/08/24 02/03/25 Rx finerenone 10 mg tablet (Kerendia) 10 mg PO DAILY #30 tabs 12/15/24 02/03/25 Rx metoprolol succinate 100 mg 100 mg PO DAILY #30 tabs 12/15/24 02/02/25 Rx tablet,extended release 24 hr (Toprol XL) hydrocodone 5 mg-acetaminophen 325 1 tab PO TIDP PRN Severe Pain 01/22/25 02/02/25 Rx mg tablet (Scale Score 7-10) #60 tabs desvenlafaxine succinate 100 mg 100 mg PO DAILY #30 tabs 01/29/25 02/02/25 Rx tablet,extended release 24 hr (Pristiq) tirzepatide 2.5 mg/0.5 mL 2.5 mg (0.5 mL) SQ WEEKLY #2 mL 02/01/25 02/02/25 Rx subcutaneous pen injector insulin regular hum U-500 conc 500 160 unit SQ AM 02/02/25 02/02/25 History unit/mL subcutaneous soln insulin regular hum U-500 conc 500 See Rx Instructions SQ BID #6 mL 02/03/25 Rx unit/mL(3 mL) subcut pen pantoprazole 40 mg tablet,delayed 40 mg PO BID 02/03/25 02/03/25 History release benzonatate 100 mg capsule 200 mg (2 x 100 mg) PO TIDP PRN 02/04/25 Rx Cough 4 days #15 caps New Prescriptions to Start Prescriptions: benzonatate Mahamed Benavides Allergies Allergy/AdvReac Type Severity Reaction Status Date / Time No Known Allergies Allergy Verified 01/29/25 08:45 Discharge Plan Disposition Patient Disposition: Home, Self-Care Condition: Fair Follow up Plan Follow up with: Zuri Reddy APRN [Nurse Practitioner, Cardiology] - 02/15/25 11:15 am Carlos Dean MD [Primary Care Provider, Family Practice] - 02/12/25 11:00 am Prescriptions/Medication Reconciliation: New benzonatate 100 mg Capsule 200 mg PO TIDP PRN (Reason: Cough) 4 Days Qty: 15 0RF Continued apixaban 5 mg tablet 5 mg PO BID 30 Days Qty: 60 10RF losartan 100 mg tablet 100 mg PO DAILY Qty: 90 3RF hydralazine 100 mg tablet 100 mg PO TID Qty: 90 3RF Kerendia 10 mg tablet 10 mg PO DAILY Qty: 30 2RF metoprolol succinate [Toprol XL] 100 mg tablet extended release 24 hr 100 mg PO DAILY Qty: 30 2RF atorvastatin 40 mg tablet 40 mg PO HS 30 Days Qty: 90 0RF desvenlafaxine succinate [Pristiq] 100 mg tablet extended release 24 hr 100 mg PO DAILY Qty: 30 2RF hydrocodone-acetaminophen 5-325 mg tablet 1 tab PO TIDP PRN (Reason: Severe Pain (Scale Score 7-10)) Qty: 60 0RF tirzepatide 2.5 mg/0.5 mL pen injector 2.5 mg SQ WEEKLY Qty: 2 0RF Rx Instructions: Take 2.5mg weekly for 4 weeks insulin regular hum U-500 conc 500 unit/mL (3 mL) insulin pen See Rx Instructions SQ BID Qty: 6 3RF Rx Instructions: subcutaneously twice a day; subcutaneously as directed; 160 units every morning, 150 units every evening trazodone 150 mg tablet 150 mg PO HS PRN (Reason: Sleep) furosemide [Lasix] 40 mg tablet 40 mg PO BID 30 Days Qty: 30 0RF diltiazem HCl 300 mg capsule,extended release 24hr 300 mg PO DAILY 30 Days Qty: 90 3RF insulin regular hum U-500 conc 500 unit/mL solution 160 unit SQ AM Rx Instructions: 160 units sq every morning; 150 units sq every evening pantoprazole 40 mg tablet,delayed release (DR/EC) 40 mg PO BID Discontinued doxycycline hyclate 100 mg capsule 100 mg PO BID 10 Days Qty: 20 0RF Rx Instructions: LAST DOSE 02/08/25 Other Ambulatory Orders: Basic Metabolic Panel (Routine) Timeframe: 3 Days Facility: [facility] - Location: Laboratory Ordered By: Mahamed Benavides Problem Reconciliation Problems Reviewed?: Yes Patient Discharge Instructions ACTIVITY: Continue current activity DIET: continue same diet Patient Instructions: DI for Pneumonia in Adults, DI for Shortness of Breath Print Language: Irish Providers Primary Care Provider: Carlos Dean Admit Provider: Mahamed Benavides Attending Provider: Mahamed Benavides
[2025-02-04] MEDS: dilTIAZem ER 120MG CAPSULE 120 MG PO (10:01)
[2025-02-04] MEDS: HYDRALAZINE HCL 25MG TABLET 100 MG PO ×2 (10:02→14:02)
[2025-02-04] MEDS: guaiFENesin 600 MG TAB.ER.12H PO (10:03)
[2025-02-04] MEDS: APIXABAN 5MG TABLET 5 MG PO (10:03)
[2025-02-04] MEDS: dilTIAZem HCL 180MG CAP.ER.24H 180 MG PO (10:03)
[2025-02-04] MEDS: IRBESARTAN 150MG TAB 150 MG PO (10:04)
[2025-02-04] MEDS: METOPROLOL SUCCINATE XL 100MG TABLET 100 MG PO (10:04)
[2025-02-04] MEDS: PANTOPRAZOLE 40MG TABLET 40 MG PO (10:04)
--- NOTE | 2025-02-04 10:32 | HMH.PHAAMS2 ---
- Antimicrobial Stewardship Review culture & sensitivity review Stewardship interventions: culture & sensitivity review (SPUTUM UNCOLLECTED. NURSE NOTIFIED.)
--- NOTE | 2025-02-04 11:33 | EXP.CARD.PN ---
Subjective Subjective Date: 02/04/25 Time: 09:00 Principal diagnosis: Acute on chronic HFpEF, pneumonia Interval history: This is a 49-year-old female who presented to the emergency department shortness of breath. The patient is being treated for acute on chronic HFpEF. She is also being treated for pneumonia. She states her shortness of breath is significantly improved today and she is feeling much better. She is still having some mild shortness of breath with exertion and this improves with rest but she states this is almost back to her baseline. She denies any chest pain or pressure. She states that her edema is also better. She denies any fever, chills, nausea, vomiting or diarrhea. Exam Data for Last 24 hours Vital signs and Labs for Last 24 Hours: Temp Pulse Resp BP Pulse Ox O2 Del Method 97.9 F 73 16 117/53 L 94 L Room Air 02/04/25 07:38 02/04/25 11:08 02/04/25 07:38 02/04/25 07:38 02/04/25 11:08 02/04/25 11:08 Laboratory Results - last 24 hr 02/03/25 11:35: POC Glucose 334 H* 02/03/25 13:49: POC Glucose 366 H* 02/03/25 16:20: POC Glucose 253 H 02/03/25 20:50: POC Glucose 229 H 02/04/25 05:44: POC Glucose 71 02/04/25 06:13: POC Glucose 60 L 02/04/25 06:19: WBC 12.8 H D, RBC 3.95 L, Hgb 10.8 L, Hct 34.6 L, MCV 87.6, MCH 27.3, MCHC 31.2 L, RDW 15.0, Plt Count 288, MPV 9.7, Neut % (Auto) 77.7, Lymph % (Auto) 11.7, [place] % (Auto) 7.3, Eos % (Auto) 2.0, Baso % (Auto) 0.4, Neut # (Auto) 9.9 H, Lymph # (Auto) 1.5, [place] # (Auto) 0.9, Eos # (Auto) 0.3, Baso # (Auto) 0.1, Sodium 137, Potassium 3.4 L, Chloride 99, Carbon Dioxide 29, Anion Gap 12.4, BUN 30 H D, Creatinine 1.90 H D, Estimated Creat Clear 34, Estimated GFR 28 L, Est GFR ( Amer) 34 L D, Glucose 62 L, Hemoglobin A1c 8.5 H, Calcium 9.3, Triglycerides 114, Cholesterol 95 L, LDL Cholesterol Direct 39.22 L, VLDL Cholesterol 23, HDL Cholesterol 42, Cholesterol/HDL Ratio 2.3 02/04/25 06:55: POC Glucose 66 L 02/04/25 08:10: POC Glucose 85 I & O for Last 24 hours: Intake & Output 02/01/25 02/02/25 02/03/25 02/04/25 23:59 23:59 23:59 23:59 Intake Total 850 / 1150 1620 / 1820 500 / 500 Output Total 2099 / 2099 150 / 150 Balance 850 / 1150 -480 / -280 350 / 350 Weight 363 lb 6.4 oz 363 lb 6.383 oz 364 lb 9.6 oz Constitutional Constitutional: no acute distress and morbidly obese *Routine HEENT Exam Head: Present normocephalic and atraumatic ENT: Present mucous membranes moist *Routine Neck Exam Neck: Present supple, full ROM and normal carotid upstroke; Absent JVD, carotid bruit or lymphadenopathy *Routine Respiratory Exam Respiratory: Present CTA bilaterally, normal respiratory effort, able to speak in complete sentences and symmetric chest movement *Routine Cardiovascular Exam Cardiovascular: Present RRR, Normal S1 and Normal S2; Absent murmur or gallop *Routine Abdominal Exam Abdominal: Present soft and normoactive bowel sounds; Absent tenderness, distended or organomegaly *Routine Extremities Exam Extremities: Present edema, full ROM, pulses intact and normal capillary refill; Absent cyanosis or clubbing *Routine Skin Exam Skin: Present intact and warm; Absent erythema *Routine Neurological Exam Neurological: Present alert, oriented X3 and CN II-XII intact; Absent sensory deficit or motor deficit Routine Psychiatric Exam Psychiatric: Present normal affect Progress Note: A&P Assessment and plan (1) Elevated troponin: Status: Acute (2) Acute on chronic heart failure with preserved ejection fraction (HFpEF): Status: Acute (3) Pulmonary hypertension: Status: Acute (4) Acute hypercapnic respiratory failure: Status: Acute (5) CAD (coronary artery disease): Status: Acute (6) Diabetes mellitus: Status: Chronic (7) High blood pressure: Status: Acute (8) HLD (hyperlipidemia): Status: Chronic (9) Afib: Status: Acute (10) Morbid obesity: Status: Acute (11) Pneumonia: Status: Acute (12) VENTURA (obstructive sleep apnea): Status: Chronic Assessment and Plan Assessment and Plan for All Diagnoses:: Plan: 1. The patient was admitted to the hospital with acute on chronic HFpEF and pneumonia. She is getting IV antibiotics. Will defer treatment of the pneumonia to the hospitalist. 2. The patient has been diuresed with IV Lasix for her acute on chronic HFpEF. Will stop IV Lasix and put her on Lasix 40 mg p.o. twice daily. 3. Continue Kerendia for HFpEF. 4. The patient did have an elevated troponin consistent with a non-STEMI. This is most likely a type II non-STEMI from her chronic HFpEF and severe pulmonary hypertension. No plans for invasive left cardiac catheterization at this time. She just underwent left cardiac catheterization 2 months ago with patent CAD. 5. Coronary artery disease is present. Recommend aspirin 81 mg daily, statin and a beta-eduin. 6. Her blood pressure is elevated. Restart her metoprolol, losartan, hydralazine and diltiazem for better blood pressure control. 7. Her LDL goal is less than 55. Her LDL is 69 in November 2024. She is on a statin. Will repeat a lipid panel in the morning. 8. The patient does have a history of paroxysmal atrial fibrillation. She is status post ablation at [facility] at the end of December 2024. Continue Eliquis for long-term anticoagulation. 9. The patient is status post right below the knee amputation. 10. No further recommendations at this time from a cardiac standpoint. Patient is stable for discharge home today with follow-up in cardiology clinic in 1 to 2 weeks on an outpatient basis. The patient will need to be discharged on the following cardiac medications: Aspirin 81 mg daily Eliquis 5 mg p.o. twice daily Lipitor 40 mg p.o. nightly Diltiazem ER 300 mg daily Lasix 40 mg p.o. twice daily Hydralazine 100 mg p.o. 3 times daily Losartan 100 mg daily Toprol XL 100 mg daily Kerendia 10 mg daily Thank you for the opportunity to help participate in the care of this patient. All recommendations and orders are per Dr. Bain.
[2025-02-04 12:29] LABS: Anion Gap 13.9 mEq/L (5-15); Blood Urea Nitrogen 31 mg/dl (7-17); Calcium 9.0 mg/dl (8.4-10.2); Carbon Dioxide 24 mmol/L (22.0-30.0); Chloride 101 mmol/L (98-107); Creatinine Clearance Estimated 39 mL/min (50-200); Creatinine,Serum 1.70 mg/dl (0.52-1.04); Estimated Glomerular Filt Rate 32 ml/min (>60); GFR (African American) 38 ML/MIN (>60); Glucose 262 mg/dl (74-100); Potassium 3.9 mmoL/L (3.5-5.1); Sodium 135 mmol/L (136-145)
[2025-02-04] MEDS: humaLOG 100 UNITS/ML 10ML VIAL (SSI) SUBCUT (13:40)
[2025-02-04] MEDS: AZITHROMYCIN 250MG TABLET 500 MG PO (14:03)
[2025-02-04] MEDS: BENZONATATE 100MG CAPSULE 200 MG PO (14:04)
--- NOTE | 2025-02-05 10:40 | SW/DCPLANNER ---
Spoke with patient on the phone. Patient stated that she is doing good. Patient stated that she is aware of her upcoming appointments. Patient stated that she was able to get her medicine picked up from clinic pharmacy. Patient stated that she has no concerns or questions at this time. Bc Mancera
[2025-02-09 16:23] LABS: POC Glucose,Bedside 274 gm/dL (70-110)
[2025-02-10 15:51] LABS: POC Glucose,Bedside 265 gm/dL (70-110)
== END 2025-02-04 14:42 | disposition home or self-care (01) ==
LOC: ER 21:24 → 2ND 21:31
PROVIDERS: Nurse Practitioner Acute Care; Nurse Practitioner Family; Admitting Provider Internal Medicine Adolescent Medicine; Emergency Provider Student in an Organized Health Care Education/Training Program; PCP Family Medicine; Visit Provider Internal Medicine Adolescent Medicine
DX: J96.02 Acute respiratory failure with hypercapnia (principal); I11.0 Hypertensive heart disease with heart failure; I50.33 Acute on chronic diastolic (congestive) heart failure; I27.20 Pulmonary hypertension, unspecified; I21.4 Non-ST elevation (NSTEMI) myocardial infarction; I25.10 Atherosclerotic heart disease of native coronary artery without angina pectoris; E78.2 Mixed hyperlipidemia; I48.91 Unspecified atrial fibrillation; E11.9 Type 2 diabetes mellitus without complications; E66.01 Morbid (severe) obesity due to excess calories; Z68.43 Body mass index [BMI] 50.0-59.9, adult; J18.9 Pneumonia, unspecified organism; Z79.01 Long term (current) use of anticoagulants; Z79.899 Other long term (current) drug therapy; Z79.4 Long term (current) use of insulin; Z77.22 Contact with and (suspected) exposure to environmental tobacco smoke (acute) (chronic); N17.9 Acute kidney failure, unspecified; Z89.511 Acquired absence of right leg below knee; K21.9 Gastro-esophageal reflux disease without esophagitis; Z82.49 Family history of ischemic heart disease and other diseases of the circulatory system; J90 Pleural effusion, not elsewhere classified; Z90.710 Acquired absence of both cervix and uterus; J98.4 Other disorders of lung; R00.1 Bradycardia, unspecified; G47.33 Obstructive sleep apnea (adult) (pediatric); Z89.519 Acquired absence of unspecified leg below knee; G40.909 Epilepsy, unspecified, not intractable, without status epilepticus; Z90.49 Acquired absence of other specified parts of digestive tract; R94.31 Abnormal electrocardiogram [ECG] [EKG]; R79.1 Abnormal coagulation profile
CPT/HCPCS: 96366; 0223U; 36415; 71045; 71275; 80048; 80053; 80061; 82009; 82803; 82962; 83036; 83605; 83690; 83880; 84484; 85025; 85378; 87631; 87636; 89220; 93005; 94640; 94761; 96365; 96367; 96375; 97162; 97166; 99285; G0378; J0456; J0696; J0780; J1938; J2405; J7050; J7120; Q9967

== ENCOUNTER 2025-02-17 10:17 | Outpatient (CLI) | payer MEDICAID, SELFPAY ==
--- OUTSIDE RECORDS SUMMARY | 2022-10-10 04:00 | XMS_ITS | Encounter Summary ---
Author Organization [place] [address] Care Team Providers Care Optimization Analyst Name Role Phone Carlos Dean MD Primary Care Provider [phone] Encounter Details Date Type Department Care Team (Latest Contact Info) Description 10/10/2022 5:00 AM EDT Hospital Encounter [facility] Referral Lab [address] [place] [address] Encounter for general adult medical examination without abnormal findings Social History Tobacco Use Types Packs/Day Years Used Date Smoking Tobacco: Former Cigarettes 0.3 23.1 0 07/05/1994 - 08/23/2017 Smokeless Tobacco: Never Alcohol Use Standard Drinks/Week Comments Yes 0 (1 standard drink = 0.6 oz pur e alcohol) occ PHQ-2 Answer Date Recorded PHQ-2 Total Score 1 01/20/2025 Overall Financial Resource Strain (CARDIA) Answe r Date Recorded How hard is it for you to pa y for the very basics like food, housing, medical care, and heating? Somewhat hard 01/20/2025 [facility] [place] of Occupat ional Health - Occupational Stress Questionnaire Answer Date Recorded Do you feel stress - tense, restless, nervous, or anxious, or unable to sleep at night because your mind is troubled all the time - these days? Rather much 01/20/2025 Exercise Vital Sign Answer Date Recorde d On average, how many days pe r week do you engage in moderate to strenuous exercise (like a brisk walk)? 0 days 01/20/2025 On average, how many minutes do you engage in exercise at this level? 0 min 01/20/2025 Hunger Vital Sign Answer Date Recorded Within the past 12 months, y ou worried that your food would run out before you got the money to buy more. Never true 01/21/20 25 Within the past 12 months, t he food you bought just didn't last and you didn't have money to get more. Never true 01/20/2025 [facility] Utilities Answer Date Recorded In the past 12 months has th e [employer], gas, oil, or water [employer] threatened to shut off services in your home? No 01/20/2025 [facility] HRSN CMS IP Transportation Answer D ate Recorded In the past 12 months, has l ack of reliable transportation kept you from medical appointments, meetings, work or from getting things needed for daily living? No 01/20/2025 Comments No Sex and Gender Information Value Date Recorded Sex Assigned at Not on file Legal Sex Female 6:55 PM EDT Gender Identity Not on file Sexual Orientation Not on file documented as of this encounter Functional Status * Is the person deaf or does he/she have serious difficulty hearing? Answer Date of Assessment Author No 04/05/2015 1:44 PM Robert Carranza RN * Is the person blind or does he/she have serious difficulty seeing even when wearing glasses? Answer Date of Assessment Author No 04/05/2015 1:44 PM Robert Carranza RN * Does this person have serious difficulty walking or climbing stairs? Answer Date of Assessment Author No 04/05/2015 1:44 PM Robert Carranza RN * Does this person have difficulty dressing or bathing? Answer Date of Assessment Author No 04/05/2015 1:44 PM Robert Carranza RN * Because of a physical, mental or emotional condition, does this person have difficulty doing errands alone such as visiting a doctor's office or shopping? Answer Date of Assessment Author No 04/05/2015 1:44 PM Robert Carranza RN * Question Answer Date of Assessment Author Little interest or pleasure in doing things 0 01/20/2025 10:45 AM EDT Judith Wilson RN Feeling down, depressed, or hopeless 1 01/20/2025 10:45 AM EDT Judith Wilson RN PHQ-2 Total Score 1 01/20/2025 10:45 AM EDT Zuri Wilson RN * PHQ-9 Total Score Answer Date of Assessment Author 1 01/20/2025 10:45 AM EDT Zuri Taveras RN * PHQ-2 Total Score Answer Date of Assessment Author 1 01/20/2025 10:45 AM EDT Zuri Taveras RN documented as of this encounter Mental Status * Because of a physical, mental or emotional condition, does this person have serious difficulty concentrating, remembering or making decisions? Answer Entry Date Author No 04/05/2015 1:44 PM EST Robert Dickey RN documented in this encounter Plan of Treatment Upcoming Encounters Date Type Department Care Team (Late st Contact Info) Description 03/08/2025 2:00 PM EST Office Visit [facility] [address] [facility] [address] [place] [address] Michelle Bull, TREE SPECIALIST [address] [place] [address] documented as of this encounter Results * (ABNORMAL) CBC WITH DIFF (10/10/2022 5:38 AM EDT) WBC 11.7(H) 3.7 - 10.3 x10(3)/mcL 10/10/2022 6:27 AM EDT [facility] RBC 3.04(L) 3.90 - 5.20 x10(6)/mcL 10/10/2022 6:27 AM EDT [facility] Hgb 7.9(L) 11.2 - 15.7 g/dL 10/10/2022 6:27 AM EDT [facility] Hct 26.9(L) 34.0 - 45.0 % 10/10/2022 6:27 AM EDT [facility] MCV 88.5 80.0 - 100.0 fL 10/10/2022 6:27 AM EDT [facility] MCH 26.0 26.0 - 34.0 pg 10/10/2022 6:27 AM EDT [facility] MCHC 29.4(L) 30.7 - 35.5 g/dL 10/10/2022 6:27 AM EDT [facility] RDW 15.5(H) <=14.9 % 10/10/2022 6:27 AM EDT [facility] Platelet 556(H) 155 - 369 x10(3)/mcL 10/10/2022 6:27 AM EDT [facility] MPV 9.0 8.8 - 12.5 fL 10/10/2022 6:27 AM EDT [facility] Neut Percent 69.7 % 10/10/2022 6:27 AM EDT [facility] Comment:Neutrophils equals s egs plus bands Imm Gran% 2.6 % 10/10/2022 6:27 AM EDT [facility] Comment:Automated count of m etamyelocytes, myelocytes and promyelocytes. IG >1% represents a left shift and provides an early indication of an infection or inflammatory process. Lymph Percent 17.1 % 10/10/2022 6:27 AM EDT [facility] [place] Percent 6.6 % 10/10/2022 6:27 AM EDT [facility] Eos Percent 3.5 % 10/10/2022 6:27 AM EDT [facility] Baso Percent 0.5 % 10/10/2022 6:27 AM EDT [facility] Neut # 8.2(H) 1.6 - 6.1 x10(3)/[facility] 10/10/2022 6:27 AM EDT [facility] Comment:Neutrophils equals s egs plus bands IMMGRAN# 0.3(H) 0.0 - 0.1 x10(3)/[facility] 10/10/2022 6:27 AM EDT [facility] Comment:Automated count of m etamyelocytes, myelocytes and promyelocytes. An absolute IG <0.1 is reported as 0.0. Lymph # 2.0 1.2 - 3.9 x10(3)/mcL 10/10/2022 6:27 AM EDT [facility] [place] # 0.8 0.3 - 0.9 x10(3)/[facility] 10/10/2022 6:27 AM EDT [facility] Eos# 0.4 0.0 - 0.5 x10(3)/[facility] 10/10/2022 6:27 AM EDT [facility] Baso # 0.1 0.0 - 0.1 x10(3)/[facility] 10/10/2022 6:27 AM EDT [facility] Blood VENOUS BLOOD / Unknown Venipuncture / Unknown 10/10/2022 5:38 AM EDT 10/10/2022 6:08 AM EDT us Unknown Provider HEMATOLOGY ORDERABLES Final Res ult [facility] [address] [facility] , [place] [address] documented in this encounter Visit Diagnoses Diagnosis Encounter for general adult medical examination without abnormal findings Routine general medical examination at a health care facility documented in this encounter Care Teams Optimization Analyst Relationship Specialty Start Date End Date Carlos Dean MD PCP - General 11/08/09 documented as of this encounter
--- OUTSIDE RECORDS SUMMARY | 2022-10-10 04:00 | XMS_ITS | Encounter Summary ---
Author Organization [place] [address] Care Team Providers Care Electromechanical Assembly Technician Name Role Phone Carlos Dean MD Primary Care Provider [phone] Encounter Details Date Type Department Care Team (Latest Contact Info) Description 10/10/2022 5:00 AM EDT Hospital Encounter [facility] Referral Lab 1 [place] [address] Encounter for general adult medical [...] medical care, and heating? Somewhat hard 01/20/2025 [facility] [place] of Occupat ional Health - Occupational Stress [...] money to get more. Never true 01/20/2025 [facility] Utilities Answer Date Recorded In the past 12 months has th e [employer], gas, oil, or water [employer] threatened to shut off services in your home? No 01/20/2025 [facility] HRSN CMS IP Transportation Answer D ate [...] Office Visit [facility] [address] [facility] [address] [facility] [address] [place] [address] Michelle Bull, BEHAVIORAL THERAPY COORDINATOR [address] [place] [address] documented as of this encounter Results * (ABNORMAL) PREALBUMIN (10/10/2022 5:38 AM EDT) Prealbumin 16.9(L) 20.0 - 40.0 mg/dL 10/10/2022 8:46 AM EDT [facility] Blood VENOUS BLOOD / Unknown Venipuncture / Unknown 10/10/2022 5:38 AM EDT 10/10/2022 6:08 AM EDT us Unknown Provider CHEMISTRY ORDERABLES Final Resu lt [facility] [address] [facility], [place] [address] documented in this encounter Visit Diagnoses Diagnosis Encounter for general adult medical examination without abnormal findings Routine general medical examination at a health care facility documented in this encounter Care Teams Electromechanical Assembly Technician Relationship Specialty Start Date End Date Carlos Dean MD PCP - General 11/08/09 documented as of this encounter
--- OUTSIDE RECORDS SUMMARY | 2022-10-11 04:00 | XMS_ITS | Encounter Summary ---
Author Organization [place] [address] Care Team Providers Care Recyclable Materials Distributor Name Role Phone Carlos Dean MD Primary Care Provider [phone] Encounter Details Date Type Department Care Team (Latest Contact Info) Description 10/11/2022 5:00 AM EDT Hospital Encounter [facility] Referral Lab 1 [place] [address] Encounter for general adult medical [...] medical care, and heating? Somewhat hard 01/20/2025 [facility] [place] of Occupat ional Health - Occupational Stress [...] money to get more. Never true 01/20/2025 [facility] Utilities Answer Date Recorded In the past 12 months has th e [employer], gas, oil, or water [employer] threatened to shut off services in your home? No 01/20/2025 [facility] HRSN CMS IP Transportation Answer D [...] [address] [facility] [address] [place] [address] Michelle Bull, [place] [address] [place] [address] Scheduled Orders Name Type Priority [...] 10/11/2022 8:18 AM EDT [facility] Glucose Lvl 74 74 - 100 mg/dL 10/11/2022 8:18 AM EDT [facility] BUN 18 6 - 20 mg/dL 10/11/2022 8:18 AM EDT [facility] Creatinine 1.41(H) 0.51 - 1.30 mg/dL 10/11/2022 8:18 AM EDT [facility] eGFR (CKD-EPIcr 2020) 46(L) >=60 mL/min/1.7 3 m2 10/11/2022 8:18 AM EDT [facility] Comment:Estimated GFR was ca lculated using the CKD-EPIcr (2020) equation refit without race. The equation is recommended by the National Kidney Foundation - [place] Society of Nephrology Task Force. Blood VENOUS BLOOD / Unknown Venipuncture / Unknown 10/11/2022 5:28 AM EDT 10/11/2022 6:57 AM EDT us Unknown Provider CHEMISTRY ORDERABLES Final Resu lt [facility], [facility] [address] [facility] , [address] [place] [id number] [facility] [address] [place], [place] [id number] documented in this encounter Visit Diagnoses Diagnosis Encounter for general adult medical examination without abnormal findings Routine general medical examination at a health care facility documented in this encounter Care Teams Recyclable Materials Distributor Relationship Specialty Start Date End Date Carlos Dean MD PCP - General 11/08/09 documented as of this encounter
--- OUTSIDE RECORDS SUMMARY | 2022-10-12 04:00 | XMS_ITS | Encounter Summary ---
Author Organization [place] [address] Care Team Providers Care Business Support Associate Name Role Phone Carlos Dean MD Primary Care Provider [phone] Encounter Details Date Type Department Care Team (Latest Contact Info) Description 10/12/2022 5:00 AM EDT Hospital Encounter [facility] Referral Lab 1 [place] [address] Encounter for general adult medical [...] medical care, and heating? Somewhat hard 01/20/2025 [facility] [place] of Occupat ional Health - Occupational Stress [...] money to get more. Never true 01/20/2025 [facility] Utilities Answer Date Recorded In the past 12 months has th e [employer], gas, oil, or water [employer] threatened to shut off services in your home? No 01/20/2025 [facility] HRSN CMS IP Transportation Answer D ate [...] Office Visit [facility] [address] [facility] [address] [place] [address] Michelle Bull, CURTIS [address] [place] [address] Scheduled Orders Name Type Priority [...] 8:02 AM EDT [facility] Glucose Lvl 135(H) 74 - 100 mg/dL 10/12/2022 8:02 AM EDT [facility] BUN 24(H) 6 - 20 mg/dL 10/12/2022 8:02 AM EDT [facility] Creatinine 1.55(H) 0.51 - 1.30 mg/dL 10/12/2022 8:02 AM EDT [facility] Albumin 3.3(L) 3.5 - 5.2 gm/dL 10/12/2022 8:02 AM EDT [facility] Total Protein 6.7 6.4 - 8.3 gm/dL 10/12/2022 8:02 AM EDT [facility] Bili Total 0.4 0.2 - 1.3 mg/dL 10/12/2022 8:02 AM EDT [facility] ALT 15 <=41 U/L 10/12/2022 8:02 AM EDT [facility] AST 22 <=40 U/L 10/12/2022 8:02 AM EDT [facility] Alk Phos 69 36 - 123 U/L 10/12/2022 8:02 AM EDT [facility] eGFR (CKD-EPIcr 2020) 41(L) >=60 mL/min/1.7 3 m2 10/12/2022 8:02 AM EDT [facility] Comment:Estimated GFR was ca lculated using the CKD-EPIcr (2020) equation refit without race. The equation is recommended by the National Kidney Foundation - Iranian Society of Nephrology Task Force. Blood VENOUS BLOOD / Unknown Venipuncture / Unknown 10/12/2022 5:46 AM EDT 10/12/2022 6:59 AM EDT us Unknown Provider CHEMISTRY ORDERABLES Final Resu lt [facility] 1 [facility] , [address] [place] [id number] [facility] [address] [place] [address] documented in this encounter Visit Diagnoses Diagnosis Encounter for general adult medical examination without abnormal findings Routine general medical examination at a health care facility documented in this encounter Care Teams Business Support Associate Relationship Specialty Start Date End Date Carlos Dean MD PCP - General 11/08/09 documented as of this encounter
--- OUTSIDE RECORDS SUMMARY | 2022-10-12 08:37 | XMS_ITS | Encounter Summary ---
Author Organization [place] [address] Care Team Providers Care Anodic Operator Name Role Phone Carlos Dean MD Primary Care Provider [phone] Encounter Details Date Type Department Care Team (Latest Contact Info) Description 10/12/2022 9:37 AM EDT Hospital Encounter [facility] Referral Lab 1 [place] [address] Encounter for general adult medical [...] medical care, and heating? Somewhat hard 01/20/2025 [facility] [place] of Occupat ional Health - Occupational Stress [...] money to get more. Never true 01/20/2025 [facility] Utilities Answer Date Recorded In the past 12 months has th e [employer], gas, oil, or water [email or web address] threatened to shut off services in your home? No 01/20/2025 [facility] HRSN CMS IP Transportation Answer D [...] Assessment Author No 04/05/2015 1:44 PM Robert Carranaz RN * Is the person blind or [...] Office Visit [facility] [address] [facility] [address] [place] [address] Michelle Bull, CURTIS [address] [place], [place] [id number] Scheduled Orders Name Type Priority Associated Diagnoses Orde r Schedule URINALYSIS Lab STAT Encounter for general adult medical examination without abnormal findings ONCE for 1 Occurrences starting 10/12/2022 until 11/16/2022 documented as of this encounter Visit Diagnoses Diagnosis Encounter for general adult medical examination without abnormal findings Routine general medical examination at a health care facility documented in this encounter Care Teams Anodic Operator Relationship Specialty Start Date End Date Carlos Dean MD PCP - General 11/08/09 documented as of this encounter
--- OUTSIDE RECORDS SUMMARY | 2022-10-12 08:38 | XMS_ITS | Encounter Summary ---
Author Organization [place] [address] Care Team Providers Care Tank House Operator Name Role Phone Carlos Dean MD Primary Care Provider [phone] Encounter Details Date Type Department Care Team (Latest Contact Info) Description 10/12/2022 9:38 AM EDT Hospital Encounter [facility] Referral Lab 1 [place] [address] Encounter for general adult medical [...] medical care, and heating? Somewhat hard 01/20/2025 [facility] [place] of Occupat ional Health - Occupational Stress [...] money to get more. Never true 01/20/2025 [facility] Utilities Answer Date Recorded In the past 12 months has th e [employer], gas, oil, or water [email or web address] threatened to shut off services in your home? No 01/20/2025 [facility] HRSN CMS IP Transportation Answer [...] Office Visit [facility] [address] [facility] [address] [place] [address] Michelle Bull, CURTIS [address] [place] [address] Scheduled Orders Name Type Priority Associated Diagnoses Orde r Schedule URINE CULTURE (NO STAIN) Microbiology STAT Encounter for general adult medical examination without abnormal findings ONCE for 1 Occurrences starting 10/12/2022 until 11/16/2022 documented as of this encounter Visit Diagnoses Diagnosis Encounter for general adult medical examination without abnormal findings Routine general medical examination at a health care facility documented in this encounter Care Teams Tank House Operator Relationship Specialty Start Date End Date Carlos Dean MD PCP - General 11/08/09 documented as of this encounter
--- OUTSIDE RECORDS SUMMARY | 2022-10-15 04:00 | XMS_ITS | Encounter Summary ---
Author Organization [place] [address] Care Team Providers Care Corporate Travel Manager Name Role Phone Carlos Dean MD Primary Care Provider [phone] Encounter Details Date Type Department Care Team (Latest Contact Info) Description 10/15/2022 5:00 AM EDT Hospital Encounter [facility] Referral Lab 1 [place] [address] Encounter for general adult medical [...] medical care, and heating? Somewhat hard 01/20/2025 [facility] [place] of Occupat ional Health - Occupational Stress [...] get more. Never true 01/20/2025 [facility] Utilities Answer Date Recorded In the past 12 months has th e [employer], gas, oil, or water [employer] threatened to shut off services in your home? No 01/20/2025 [facility] HRSN CMS IP Transportation Answer D [...] Office Visit [facility] [address] [facility] [address] [place] [address] Michelle Bull, CURTIS [address] [place] [address] Scheduled Orders Name Type Priority Associated Diagnoses Orde r Schedule CBC WITH DIFF Lab Routine Encounter for general adult medical examination without abnormal findings ONCE for 1 Occurrences starting 10/15/2022 until 11/19/2022 documented as of this encounter Results * (ABNORMAL) CBC WITH DIFF (10/15/2022 9:28 AM EDT) WBC 9.8 3.7 - 10.3 x10(3)/mcL 10/15/2022 9:55 AM EDT [facility] RBC 3.09(L) 3.90 - 5.20 x10(6)/mcL 10/15/2022 9:55 AM EDT [facility] Hgb 8.4(L) 11.2 - 15.7 g/dL 10/15/2022 9:55 AM EDT [facility] Hct 28.2(L) 34.0 - 45.0 % 10/15/2022 9:55 AM EDT [facility] MCV 91.3 80.0 - 100.0 fL 10/15/2022 9:55 AM EDT [facility], [facility] MCH 27.2 26.0 - 34.0 pg 10/15/2022 9:55 AM EDT [facility] MCHC 29.8(L) 30.7 - 35.5 g/dL 10/15/2022 9:55 AM EDT [facility] RDW 15.9(H) <=14.9 % 10/15/2022 9:55 AM EDT [facility] Platelet 409(H) 155 - 369 x10(3)/mcL 10/15/2022 9:55 AM EDT [facility] MPV 9.7 8.8 - 12.5 fL 10/15/2022 9:55 AM EDT [facility] Neut Percent 64.2 % 10/15/2022 9:55 AM EDT [facility] Comment:Neutrophils equals s egs plus bands Imm Gran% 0.8 % 10/15/2022 9:55 AM EDT [facility] Comment:Automated count of m etamyelocytes, myelocytes and promyelocytes. Lymph Percent 23.2 % 10/15/2022 9:55 AM EDT [facility] Scioto Percent 5.9 % 10/15/2022 9:55 AM EDT [facility] Eos Percent 5.4 % 10/15/2022 9:55 AM EDT [facility] Baso Percent 0.5 % 10/15/2022 9:55 AM EDT [facility] Neut # 6.3(H) 1.6 - 6.1 x10(3)/mcL 10/15/2022 9:55 AM EDT [facility] Comment:Neutrophils equals s egs plus bands IMMGRAN# 0.1 0.0 - 0.1 x10(3)/mcL 10/15/2022 9:55 AM EDT [facility] Comment:Automated count of m etamyelocytes, myelocytes and promyelocytes. An absolute IG <0.1 is reported as 0.0. Lymph # 2.3 1.2 - 3.9 x10(3)/mcL 10/15/2022 9:55 AM EDT [facility] Sci[place] # 0.6 0.3 - 0.9 x10(3)/mcL 10/15/2022 9:55 AM EDT [facility] Eos# 0.5 0.0 - 0.5 x10(3)/[facility] 10/15/2022 9:55 AM EDT [facility] Baso # 0.1 0.0 - 0.1 x10(3)/mcL 10/15/2022 9:55 AM EDT [facility] Blood VENOUS BLOOD / Unknown Venipuncture / Unknown 10/15/2022 9:28 AM EDT 10/15/2022 9:28 AM EDT us Unknown Provider HEMATOLOGY ORDERABLES Final Res ult [facility] [employer], [facility] [address] [facility] , [place] [address] documented in this encounter Visit Diagnoses Diagnosis Encounter for general adult medical examination without abnormal findings Routine general medical examination at a health care facility documented in this encounter Care Teams Corporate Travel Manager Relationship Specialty Start Date End Date Carlos Dean MD PCP - General 11/08/09 documented as of this encounter
--- OUTSIDE RECORDS SUMMARY | 2022-10-15 04:00 | XMS_ITS | Encounter Summary ---
Author Organization [place] [address] Care Team Providers Care Environmental Associate Name Role Phone Carlos Dean MD Primary Care Provider [phone] Encounter Details Date Type Department Care Team (Latest Contact Info) Description 10/15/2022 5:00 AM EDT Hospital Encounter [facility] Referral Lab 1 [place] [address] Encounter for general adult medical [...] medical care, and heating? Somewhat hard 01/20/2025 [facility] [place] of Occupat ional Health - Occupational Stress [...] money to get more. Never true 01/20/2025 [facility] Utilities Answer Date Recorded In the past 12 months has th e [employer], gas, oil, or water [employer] threatened to shut off services in your home? No 01/20/2025 [facility] HRSN CMS IP Transportation Answer D [...] Visit [facility] [address] [facility] [address] [place] [address] Michelle Bull, CURTIS [address] [place] [address] Scheduled Orders Name Type Priority [...] mg/dL 10/15/2022 10:14 AM EDT [facility] Glucose Lvl 70(L) 74 - 100 mg/dL 10/15/2022 10:14 AM EDT [facility] BUN 23(H) 6 - 20 mg/dL 10/15/2022 10:14 AM EDT [facility] Creatinine 1.25 0.51 - 1.30 mg/dL 10/15/2022 10:14 AM EDT [facility] eGFR (CKD-EPIcr 2020) 53(L) >=60 mL/min/1.7 3 m2 10/15/2022 10:14 AM EDT [facility] Comment:Estimated GFR was ca lculated using the CKD-EPIcr (2020) equation refit without race. The equation is recommended by the National Kidney Foundation - [place] Society of Nephrology Task Force. Blood VENOUS BLOOD / Unknown Venipuncture / Unknown 10/15/2022 9:28 AM EDT 10/15/2022 9:28 AM EDT us Unknown Provider CHEMISTRY ORDERABLES Final Resu lt [facility] [address] [facility] , [place] [address] [facility] [address] [place], [place] [id number] documented in this encounter Visit Diagnoses Diagnosis Encounter for general adult medical examination without abnormal findings Routine general medical examination at a health care facility documented in this encounter Care Teams Environmental Associate Relationship Specialty Start Date End Date Carlos Dean MD PCP - General 11/08/09 documented as of this encounter
--- OUTSIDE RECORDS SUMMARY | 2022-10-17 04:00 | XMS_ITS | Encounter Summary ---
Author Organization [place] [address] Care Team Providers Care Computer Security Manager Name Role Phone Carlos Dean MD Primary Care Provider [phone] Encounter Details Date Type Department Care Team (Latest Contact Info) Description 10/17/2022 5:00 AM EDT Hospital Encounter [facility] Referral Lab 1 [place] [address] Encounter for general adult medical [...] medical care, and heating? Somewhat hard 01/20/2025 [facility] of Occupat ional Health - Occupational Stress [...] get more. Never true 01/20/[address] [facility] Utilities Answer Date Recorded In the past 12 months has th e [employer], gas, oil, or water [employer] threatened to shut off services in your home? No 01/20/[address] [facility] HRSN CMS IP Transportation Answer [...] Visit [facility] [address] [facility] [address] [place] [address] Michelle Bull, CURTIS [address] [place] [address] Scheduled Orders Name Type Priority Associated Diagnoses [...] facility documented in this encounter Care Teams Computer Security Manager Relationship Specialty Start Date End Date Carlos Dean MD PCP - General 11/08/09 documented as of this encounter
--- OUTSIDE RECORDS SUMMARY | 2022-10-17 04:00 | XMS_ITS | Encounter Summary ---
Author Organization [place] [address] Care Team Providers Care Creative Director Name Role Phone Carlos Dean MD Primary Care Provider [phone] Encounter Details Date Type Department Care Team (Latest Contact Info) Description 10/17/2022 5:00 AM EDT Hospital Encounter [facility] Referral Lab 1 [place] [address] Encounter for general adult medical [...] and heating? Somewhat hard 01/20/2025 [facility] [place] of Occupat ional Health - Occupational Stress [...] money to get more. Never true 01/20/2025 [facility] Utilities Answer Date Recorded In the past 12 months has th e [employer], gas, oil, or water [employer] threatened to shut off services in your home? No 01/20/2025 [facility] HRSN CMS IP Transportation Answer D [...] Ctr Edg [address] [facility] [address] [place] [address] Michelle Bull, CURTIS [address] [place] [address] Scheduled Orders Name Type Priority Associated Diagnoses [...] facility documented in this encounter Care Teams Creative Director Relationship Specialty Start Date End Date Carlos Dean MD PCP - General 11/08/09 documented as of this encounter
--- OUTSIDE RECORDS SUMMARY | 2022-10-18 04:00 | XMS_ITS | Encounter Summary ---
Author Organization [place] [address] Care Team Providers Care Validation Intern Name Role Phone Carlos Dean MD Primary Care Provider [phone] Encounter Details Date Type Department Care Team (Latest Contact Info) Description 10/18/2022 5:00 AM EDT Hospital Encounter [facility] Referral Lab 1 [place] [address] Encounter for general adult medical [...] medical care, and heating? Somewhat hard 01/20/2025 [facility] [place] of Occupat ional Health - Occupational Stress [...] money to get more. Never true 01/20/2025 [facility] Utilities Answer Date Recorded In the past 12 months has th e [employer], gas, oil, or water [email or web address] threatened to shut off services in your home? No 01/20/2025 [facility] HRSN CMS IP Transportation Answer [...] Visit [facility] [address] [facility] [address] [place] [address] Michelle Bull, CURTIS [address] [place] [address] Scheduled Orders Name Type Priority [...] 10/18/2022 6:53 AM EDT [facility] Glucose Lvl 109(H) 74 - 100 mg/dL 10/18/2022 6:53 AM EDT [facility] BUN 25(H) 6 - 20 mg/dL 10/18/2022 6:53 AM EDT [facility] Creatinine 1.45(H) 0.51 - 1.30 mg/dL 10/18/2022 6:53 AM EDT [facility] eGFR (CKD-EPIcr 2020) 44(L) >=60 mL/min/1.7 3 m2 10/18/2022 6:53 AM EDT [facility] Comment:Estimated GFR was ca lculated using the CKD-EPIcr (2020) equation refit without race. The equation is recommended by the National Kidney Foundation - [place] Society of Nephrology Task Force. Blood VENOUS BLOOD / Unknown Venipuncture / Unknown 10/18/2022 4:45 AM EDT 10/18/2022 6:15 AM EDT us Unknown Provider CHEMISTRY ORDERABLES Final Resu lt Performing Organization Address [facility]/State/ZIP Co de Phone Number [facility] 1 [facility] , [address] [place] [id number] [facility] [address] [place], [place] [phone] documented in this encounter Visit Diagnoses Diagnosis Encounter for general adult medical examination without abnormal findings Routine general medical examination at a health care facility documented in this encounter Care Teams Validation Intern Relationship Specialty Start Date End Date Carlos Dean MD PCP - General 11/08/09 documented as of this encounter
--- OUTSIDE RECORDS SUMMARY | 2022-10-22 12:54 | XMS_ITS | Encounter Summary ---
Author Organization [place] [address] Care Team Providers Care Manager Of Loss Prevention Operations Name Role Phone Carlos Dean MD Primary Care Provider [phone] Encounter Details Date Type Department Care Team (Latest Contact Info) Description 10/22/2022 1:54 PM EDT Hospital Encounter [facility] Referral Lab 1 [place] [address] Encounter for general adult medical [...] heating? Somewhat hard 01/20/2025 [facility] of Occupat ional Health - Occupational Stress [...] money to get more. Never true 01/20/2025 [facility] Utilities Answer Date Recorded In the past 12 months has th e [employer], gas, oil, or water [employer] threatened to shut off services in your home? No 01/20/2025 [facility] HRSN CMS IP Transportation Answer D [...] Visit [facility] [address] [facility] [address] [place] [address] Michelle Bull, CURTIS [address] [place] [address] documented as of this encounter Visit Diagnoses Diagnosis Encounter for general adult medical examination without abnormal findings Routine general medical examination at a health care facility documented in this encounter Care Teams Manager Of Loss Prevention Operations Relationship Specialty Start Date End Date Carlos Dean MD PCP - General 11/08/09 documented as of this encounter
--- OUTSIDE RECORDS SUMMARY | 2022-10-22 12:54 | XMS_ITS | Encounter Summary ---
Author Organization [place] [address] Care Team Providers Care Functional Support Analyst Name Role Phone Carlos Dean MD Primary Care Provider [phone] Encounter Details Date Type Department Care Team (Latest Contact Info) Description 10/22/2022 1:54 PM EDT Hospital Encounter [facility] Referral Lab 1 [place] [address] Encounter for general adult medical [...] medical care, and heating? Somewhat hard 01/20/2025 [facility] [place] of Occupat ional Health - Occupational Stress [...] money to get more. Never true 01/20/2025 [facility] Utilities Answer Date Recorded In the past 12 months has th e [employer], gas, oil, or water [employer] threatened to shut off services in your home? No 01/20/2025 [facility] HRSN CMS IP Transportation Answer [...] Ctr Edg [address] [facility] [address] [place] [address] Michelle Bull, CURTIS [address] [place], [place] [phone] Scheduled Orders Name Type Priority Associated Diagnoses Orde r Schedule C DIFF TOXIN DNA Microbiology STAT Encounter for general adult medical examination without abnormal findings ONCE for 1 Occurrences starting 10/22/2022 until 11/26/2022 documented as of this encounter Visit Diagnoses Diagnosis Encounter for general adult medical examination without abnormal findings Routine general medical examination at a health care facility documented in this encounter Care Teams Functional Support Analyst Relationship Specialty Start Date End Date Carlos Dean MD PCP - General 11/08/09 documented as of this encounter
--- OUTSIDE RECORDS SUMMARY | 2023-12-04 04:00 | XMS_ITS | Encounter Summary ---
Author Organization [place] [address] Care Team Providers Care Lopper Name Role Phone Carlos Dean MD Primary Care Provider [phone] Encounter Details Date Type Department Care Team (Latest Contact Info) Description 12/04/2023 5:00 AM EDT Hospital Encounter SE Referral Lab 1 [place] [address] Tang Catherine MD [address] [place] [address] [place] [phone] Encounter for general adult medical examination without [...] medical care, and heating? Somewhat hard 01/20/2025 [facility] [place] of Occupat ional Health - Occupational Stress [...] money to get more. Never true 01/20/2025 [facility] Utilities Answer Date Recorded In the past 12 months has th e electric, gas, oil, or water company threatened to shut off services in your home? No 01/20/2025 [facility] HRSN CMS IP Transportation Answer D [...] [facility] [address] [place] [address] Michelle Bull, SKEIN YARD DRIER [address] [place] [address] documented as of this encounter Results * (ABNORMAL) COMPREHENSIVE METABOLIC PANEL (12/04/2023 4:00 AM EDT) Sodium 140 136 - 145 mmol/L 12/04/2023 8:10 AM EDT [facility] Potassium 4.0 3.5 - 5.0 mmol/L 12/04/2023 8:10 AM EDT [facility] Chloride 100 98 - 107 mmol/L 12/04/2023 8:10 AM EDT [facility] Total CO2 24 22 - 29 mmol/L 12/04/2023 8:10 AM EDT [facility] Anion Gap 16 7 - 16 mmol/L 12/04/2023 8:10 AM EDT [facility] Calcium 8.5(L) 8.6 - 10.4 mg/dL 12/04/2023 8:10 AM EDT [facility] Glucose Lvl 251(H) 70 - 99 mg/dL 12/04/2023 8:10 AM EDT [facility] BUN 15 6 - 20 mg/dL 12/04/2023 8:10 AM EDT [facility] Creatinine 0.94 0.51 - 1.30 mg/dL 12/04/2023 8:10 AM EDT [facility] Albumin 3.6 3.5 - 5.2 gm/dL 12/04/2023 8:10 AM EDT [facility] Total Protein 5.9(L) 6.4 - 8.3 gm/dL 12/04/2023 8:10 AM EDT [facility] Bili Total 0.5 0.2 - 1.3 mg/dL 12/04/2023 8:10 AM EDT [facility] ALT 18 <=41 U/L 12/04/2023 8:10 AM EDT [facility] AST 17 <=40 U/L 12/04/2023 8:10 AM EDT [facility] Alk Phos 74 36 - 123 U/L 12/04/2023 8:10 AM EDT [facility] eGFR (CKD-EPIcr 2020) 74 >=60 mL/min/1.7 3 m2 12/04/2023 8:10 AM EDT [facility] Comment:Estimated GFR was ca lculated using the CKD-EPIcr (2020) equation refit without race. The equation is recommended by the National Kidney Foundation - [place] Society of Nephrology Task Force. Blood VENOUS BLOOD / Unknown Venipuncture / Unknown 12/04/2023 4:00 AM EDT 12/04/2023 6:56 AM EDT us Tang Catherine MD CHEMISTRY ORDERABLES Final Resu lt [facility] [address] [facility], [place] [address] [facility] 1 [place] [address] documented in this encounter Visit Diagnoses Diagnosis Encounter for general adult medical examination without abnormal findings Routine general medical examination at a health care facility documented in this encounter Care Teams Lopper Relationship Specialty Start Date End Date Carlos Dean MD PCP - General 11/08/09 documented as of this encounter
--- OUTSIDE RECORDS SUMMARY | 2023-12-04 04:00 | XMS_ITS | Encounter Summary ---
Author Organization [place] [address] Care Team Providers Care Coil Winder Hand Name Role Phone Carlos Dean MD Primary Care Provider [phone] Encounter Details Date Type Department Care Team (Latest Contact Info) Description 12/04/2023 5:00 AM EDT Hospital Encounter SE Referral Lab 1 [place] [address] Tang Catherine MD [address] [place] [address] [place] [phone] Encounter for general adult medical examination [...] medical care, and heating? Somewhat hard 01/20/2025 [facility] [place] of Occupat ional Health - Occupational Stress [...] money to get more. Never true 01/20/2025 [facility] Utilities Answer Date Recorded In the past 12 months has th e electric, gas, oil, or water company threatened to shut off services in your home? No 01/20/2025 [facility] HRSN CMS IP Transportation Answer D [...] of Assessment Author No 04/05/2015 1:44 PM Roebrt Carranza RN * Because of a physical, [...] [facility] [address] [place] [address] Michelle Bull, BRACER [address] [place] [address] documented as of this encounter Results * (ABNORMAL) PREALBUMIN (12/04/2023 4:00 AM EDT) Prealbumin 15.9(L) 20.0 - 40.0 mg/dL 12/04/2023 7:54 AM EDT [facility] Blood VENOUS BLOOD / Unknown Venipuncture / Unknown 12/04/2023 4:00 AM EDT 12/04/2023 6:56 AM EDT us Tang Catherine MD CHEMISTRY ORDERABLES Final Resu lt [facility] 1 [facility], [place] [address] documented in this encounter Visit Diagnoses Diagnosis Encounter for general adult medical examination without abnormal findings Routine general medical examination at a health care facility documented in this encounter Care Teams Coil Winder Hand Relationship Specialty Start Date End Date Carlos Dean MD PCP - General 11/08/09 documented as of this encounter
--- OUTSIDE RECORDS SUMMARY | 2024-12-31 13:00 | XMS_ITS | Encounter Summary ---
Author Organization [facility] [place] [address] Care Team Providers Care Thread Marker Name Role Phone Carlos Dean MD Primary Care Provider [phone] Reason for Visit * Reason Comments New Patient referred by Dr. Thalia Bain at [facility] for AF ablation. Meds per pt report Encounter Details Date Type Department Care Team (Late st Contact Info) Description 12/31/2024 2:00 PM EDT Office Visit [facility] [address] [facility] [address] [place] [address] Mahamed Hilliard MD [address] [place] [id number] Atrial fibrillation, unspecified type (HCC) (Primary [...] Patient referred by Dr. Selvin Bain at [facility] for AF ablation. Meds per pt [...] Results Component Value Date INR 1.10 10/21/2018 [id number] Stroke Risk Points: N/A Values used to [...] open heart surgery, need for pacemaker implantation, Injury to the phrenic nerve, injury to the esophagus, [...] Office Visit [facility] [address] [facility] [address] [place] [address] Michelle Bull APRN [address] [place] [address] documented as of this encounter [...] 01/20/2025 added in this encounter Care Teams Thread Marker Relationship Specialty Start Date End Date Carlos Dean MD PCP - General 11/08/09 documented as of this encounter
--- OUTSIDE RECORDS SUMMARY | 2025-01-19 08:33 | XMS_ITS | Encounter Summary ---
Author Organization [place] [address] Care Team Providers Care Brake Holder Name Role Phone Carlos Dean MD Primary Care Provider [phone] Reason for Visit * Auth/Cert/Inpt Specialty Diagnoses / Procedures Referred By Contac t Referred To Contact Diagnoses Paroxysmal atrial fibrillation (HCC) Paroxysmal atrial fibrillation (HCC) [I48.0] Procedures CT COMPRE EP EVAL ABLTJ ATR FIB PULM VEIN ISOLATION CT ICAR CATH ABLATION DISCRETE MECHANISM ARRHYTHMIA CT INTRACARDIAC ELECTROPHYSIOLOGIC 3D MAPPING CT INTRACARD ECHOCARD W/THER/DX IVNTJ INCL IMG S&I PAROXYSMAL ATRIAL FIBRILLATION ABLATION WITH 3D MAPPING Referral ID Status Reason Start Date Expiration Date Visits Re quested Visits Authorized [id number] 1 1 Encounter Details Date Type Department Care Team (Latest Contact Info) Description 01/19/2025 9:33 AM EDT - 01/20/2025 12:50 PM EDT Hospital [place] [address] Michael Hilliard MD [address] [place] [id number] Paroxysmal atrial fibrillation (HCC) Discharge Disposition: [...] medical care, and heating? Somewhat hard 01/20/2025 [facility] - Occupational Stress Questionnaire Answer Date Recorded [...] money to get more. Never true 01/20/2025 [facility] Utilities Answer Date Recorded In the past 12 months has th e electric, gas, oil, or water company threatened to shut off services in your home? No 01/20/2025 [facility] HRSN CMS IP Transportation Answer D [...] from the original note were not included. [facility] Discharge Summary Patient Name: Eliz Daniels : 1975 Admit Date: 01/19/2025 Discharge Date: 01/20/2025 Admitting Physician: Michael Hilliard MD Discharge Physician: Michael Hilliard MD Reason for Hospitalization: Active Hospital Problems CKD (chronic kidney disease) Status post ablation of atrial fibrillation A-fib (HCC) *Paroxysmal atrial fibrillation (HCC) Depressive disorder Sleep apnea, obstructive Morbid obesity with BMI of 50.0-59.9, adult (HCC) Hyperlipidemia Diabetes mellitus ([facility]) Essential hypertension Hospital Course/Significant Findings: Eliz Daniels [...] for Tx. She's scheduled to see an long filler cigar roller machine outpatient. Discussed with her/family the need to control blood sugars to avoid complications from her diabetes. Procedures Performed: Successful PVI for PAF Successful CTI line for typical atrial flutter with TCL 250 msec Right jae line Consults: Consulting: Provider Bg Garcia, Discharge Exam: Vitals: 01/20/25 0854 BP: 134/74 [...] noted Psychiatric: Normal mood, affect, and behavior [id number] Stroke Risk Points: 3 Values used to [...] Your Medications These medications were sent to [facility] [address] [place] [address] Hours: Saturday-Saturday 8:00am - 6:30pm Saturday-Saturday 9:00am - 5:00pm pantoprazole 40 mg [facility] Follow Up: Michelle Bull APRN [address] [address] Follow up on 03/08/2025 at 2:00 pm [...] site; Or any questions about your medications. [facility] [address] [place] [address] Dr. Carl. [address] [place] [address] +++++++++++++++++++++++++++++++++++++++++++++++++++++++++++++++++++ [facility] Discharge Instructions - Following Anesthesia We appreciate [...] our office at . Get Well Soon! [facility] +++++++++++++++++++++++++++++++++++++++++++++++++++++++++++++++++++ documented in this encounter Medications at Time of Discharge amLODIPine (NORVASC) 10 mg Oral Tablet Take 10 mg by mouth daily. atorvastatin (LIPITOR) 40 mg Oral Tablet Take 40 mg by mouth nightly. at bedtime desvenlafaxine 50 mg Oral Tablet Sustained Release 24 hr Take 1 tablet every day by oral route. DEXCOM G7 SENSOR [facility] Device 12/04/2024 ELIQUIS 5 mg Oral Tablet Take 1 tablet twice a day by oral route. FREESTYLE LANCETS 28 gauge [facility] 10/20/2024 fUROsemide (LASIX) 40 mg Oral Tablet [...] Caregiver Name Cornelius-spouse Caregiver Does patient need scale tester? No Activities of Daily Living Prior to [...] not needed concern identified and addressed by Manager Bakery Anticipated post-acute care needs Home with OP Follow Up Discussed discharge plans with Patient/Family/Caregiver/Support Person Yes, Discussed with patient and caregiver/support person Actual Discharge Plan 01/20/25 CC INITIAL and FINAL NOTE: Pt admitted for Paroxysmal atrial fibrillation. Spoke with pt and spouse at bedside. PCP is Dr Dean. Pharmacy is [facility] and denies any issuesaffording medications. No C, but has used in the past. See DME above. Pt needs assistance with ADL's and lives with spouse, Cornelius ([phone]), and he can transport home at d/c. No needs identified at this time. CC to sign off. Final Note Care Coordination Discharge Ready? Yes Discharge to Home with Family Post Acute Provider [facility] DME Arranged at Discharge None Transportation at [...] 8:54 AM EDTAssociated Problem(s): Hyperlipidemia -Statin * gB Garcia DO - 01/20/2025 8:54 AM EDTAssociated Problem(s): CKD (chronic kidney disease) -Renal function overall stable -Avoid nephrotoxic agents as able * Ame Chavarria RN - 01/20/2025 3:25 AM EDT Pt resting with VSS. A&Ox4. Chronic leg pain managed with PRN [place] and one time dose of flexeril. Denies SOA. IV without complication. R groin site is clean, dry, and intact with no signs of bleeding or hematoma. Call light and belongings in reach. Pt had no orders for insulin or BG checks. Message sent to electronic science teacher for EP, BELLA Glover with following message, Pt is a diabetic [...] Hilliard MD - 01/19/2025 2:15 PM EDT [facility] OPERATIVE/PROCEDURE NOTE Eliz Daniels January 19, 2025 Body mass index is [...] AM EDTAssociated Order(s): IP CONSULT TO HOSPITALIST [facility] Consult Note Name: Eliz Daniels : 1975 [...] EK EKG 12 LEAD Result Date: 01/20/2025 [facility] [place] Test Date: 2025-01-19 Pat Name: ELIZ DANIELS Department: DEPID Room: [facility] Gender: Female Senior Developer: HEIDY : 1975 Requested By: MICHAEL Juarez Order Number: [id number] Reading MD: Zackery Mcgraw Measurements Intervals [place] Rate: 84 P: 64 CT: 180 QRS: -12 QRSD: 89 T: 59 QT: 402 QTc: 476 Interpretive Statements SINUS RHYTHM PRWP NONSPECIFIC T-WAVEABNORMALITY Electronically Signed On 01-20-2025 08:39:51 EDT by Zackery Mcgraw Results for orders placed during the hospital encounter of 01/19/25 EK EKG [address] [facility] Test Date: 2025-01-19 Pat Name: ELIZ DANIELS Department: DEPID Room: [facility] 2 Gender: Female Senior Developer: HEIDY : 1975 Requested By: MICHAEL Juarez Order Number: [id number] Reading MD: Zackery Mcgraw Measurements Intervals [place] Rate: 84 P: 64 CT: 180 QRS: -12 QRSD: 89 T: 59 [...] achs. D/w pharmacy. Dispo: Per primary. Bg Garcia, 01/20/2025 8:44 AM [1] Past Medical History: Diagnosis Date Cardiomegaly CHF (congestive heart failure) (HCC) Complication of anesthesia hard to arouse x [...] WITH MESH; Surgeon: Africa Gee MD; Location: COUNTS INCLUDE 234 BEDS AT THE [facility] MAIN OR; Service: General [3] Medications Prior [...] Transportation Needs: High Risk (09/26/2021) Received from [facility] Medicaid [facility] Survey 1.0 Has lack of transportation kept you from medical appointments, meetings, work, or from getting things needed for daily living? Check all that apply.: Yes, it has kept me from medical appointments or from getting my medications Housing Stability: Low Risk (09/26/2021) Received from [facility] Medicaid PRAPARE Survey 1.0 What is your [...] ON CHART, ADMITTED TO TELEMETRY FLOOR FROM DRIVE IN TELLER FOR PROCEDURE(S): Procedure(s): PAROXYSMAL ATRIAL FIBRILLATION ABLATION [...] [facility] [address] [place] [address] Michelle Bull APRN [address] [place], [place] [id number] documented as of this encounter Procedures Procedure [...] 8:37 AM EDTThis note is in progress. [facility] Consult Note Name: Eliz Daniels : 1975 [...] consulted for hyperglycemia. She reports that she [id number] 140U bid with BG that typically run in 200s. Does not administer anyshort acting insulin throughout the day. Last dose of insulin was AM10. After intervention yesterday, did not watch what [...] 01/20/2025 [facility]:2025-01-19 Pat Name: [facility] Department: DEPIDPatient ID: [id number] Room: [facility] Gender:Female Senior Developer: HEIDY : [id number] By: MICHAEL Juarez Order Number: [id number] MD: Zackery Mcgraw MeasurementsIntervals [place] Rate: 84P: 64 CT: 180QRS: -12 QRSD: 89 T: 59QT: 402 QTc: 476InterpretiveStatements SINUS RHYTHM PRWP NONSPECIFIC T-WAVE ABNORMALITY ElectronicallySigned On 01-20-2025 08:39:51 EDT by Zackery Mcgraw Results for orders placed during the hospital encounter of 01/19/25 EK EKG [address] [facility] Test Date: 2025-01-19 Pat Name: [facility] Department: DEPID Room: [facility] Gender: Female Senior Developer: : 1975 Requested By: MICHAEL Juarez Order Number: [id number] Reading MD: Zackery Mcgraw Measurements Intervals [place] Rate: 84 P: 64 CT: 180 QRS: -12 QRSD: 89 T: 59 [...] Diagnosis Date Cardiomegaly CHF (congestive heart failure) (HCC) Complication of anesthesia hard to arouse x [...] OVARY REMOVAL VENTRAL HERNIA REPAIR N/A 04/04/2015 [facility]IVIA ROBOTIC ASSISTED RECURRENT VENTRAL HERNIA REPAIR WITH MESH;Surgeon: Africa Gee MD; Location: [facility] MAIN OR; [...] ER (TOPROL-XL) 100 mg Oral Tablet Sustained Iiqxcxe48 hr multivitamin (THERAGRAN) Oral Tablet Take 1 [...] Transportation Needs: High Risk (09/26/2021) Received from [employer] Medicaid PRAPARE Survey 1.0 Has lack of transportation kept you from medical appointments, meetings,work, or from getting things needed for daily living? Check all thatapply.: Yes, it has kept me from medical appointments or from getting mymedications Housing Stability: Low Risk (09/26/2021) Received from [employer] Medicaid PRAPARE Survey 1.0 What is your [...] GLUCOSE METER POC (01/20/2025 10:20 AM EDT) [facility] Glucose Meter POC 315(H) 70 - 100 mg/dL 01/20/2025 10:22 AM EDT [facility] Sample Type Capillary 01/20/2025 10:22 AM EDT [facility] Patient Status Non-Critical Patient 01/20/2025 10:22 AM EDT [facility] Blood BLOOD SPECIMEN / Unknown 01/20/2025 10:20 AM EDT 01/20/2025 10:22 AM EDT Michael Hilliard MD POINT OF CARE TEST ORDERABLES Fi nal Result [facility] [address] [place] [address] * ECG AND WAVEFORMS - TELEMETRY (01/20/2025 7:26 AM EDT) Pathologist [facility] ECG INTERPRET NSR [facility] 01/20/2025 7:26 AM EDT Narrative [facility] - 01/20/2025 7:31 AM EDT ROUTINE (BS) CT 0.19 QRS 0.08 RR 0.82 QT 0.44 QTc 0.49 See Clinical Report link for waveform capture Unknown Provider POINT OF CARE CARDIOLOGY Final Result Performing Organization Address City/[facility]/ZIP Co de Phone Number [facility] [address] [place] [address] * (ABNORMAL) CBC WITH DIFF (01/20/2025 7:02 AM EDT) [facility] WBC 13.9(H) 3.7 - 10.3 x10(3)/mcL 01/20/2025 [...] 01/20/2025 7:29 AM EDT [facility] MPV 9.5 8.8 - 12.5 fL 01/20/2025 7:29 AM EDT [facility] Neut Percent 83.6 % 01/20/2025 7:29 AM EDT [facility] Comment:Neutrophils equals s egs plus bands Imm Gran% 0.9 % 01/20/2025 7:29 AM EDT [facility] Comment:Automated count of m etamyelocytes, myelocytes and promyelocytes. Lymph Percent 7.9 % 01/20/2025 7:29 AM EDT [facility] [place] Percent 7.1 % 01/20/2025 7:29 AM EDT [facility] Eos Percent 0.1 % 01/20/2025 7:29 AM EDT [facility] Baso Percent 0.4 % 01/20/2025 7:29 AM EDT [facility] Neut # 11.6(H) 1.6 - 6.1 x10(3)/mcL 01/20/2025 7:29 AM EDT [facility] Comment:Neutrophils equals s egs plus bands IMMGRAN# 0.1 0.0 - 0.1 x10(3)/mcL 01/20/2025 7:29 AM EDT [facility] Comment:Automated count of m etamyelocytes, myelocytes and promyelocytes. An absolute IG <0.1 is reported as 0.0. Lymph # 1.1(L) 1.2 - 3.9 x10(3)/mcL 01/20/2025 7:29 AM EDT [facility] [place] # 1.0(H) 0.3 - 0.9 x10(3)/mcL 01/20/2025 7:29 AM EDT [facility] Eos# 0.0 0.0 - 0.5 x10(3)/mcL 01/20/2025 7:29 AM EDT [facility] Baso # 0.1 0.0 - 0.1 x10(3)/mcL 01/20/2025 7:29 AM EDT [facility] Blood VENOUS BLOOD / Unknown Venipuncture / Unknown 01/20/2025 7:02 AM EDT 01/20/2025 7:14 AM EDT Bg Garcia DO HEMATOLOGY ORDERABLES Final Result [facility] [address] [facility] [facility] , [place] [address] * (ABNORMAL) BASIC METABOLIC PANEL (01/20/2025 7:02 AM EDT) Sodium 134(L) 136 - 145 mmol/L 01/20/2025 8:02 AM EDT [facility] Potassium 4.5 3.5 - 5.0 mmol/L 01/20/2025 8:02 AM EDT [facility] Chloride 97(L) 98 - 107 mmol/L 01/20/2025 8:02 AM EDT [facility] Total CO2 22 22 - 29 mmol/L 01/20/2025 8:02 AM EDT [facility] Anion Gap 15 7 - 16 mmol/L 01/20/2025 8:02 AM EDT [facility] Calcium 9.1 8.6 - 10.4 mg/dL 01/20/2025 8:02 AM EDT [facility] Glucose Lvl 337(H) 70 - 99 mg/dL 01/20/2025 8:02 AM EDT [facility] BUN 23(H) 6 - 20 mg/dL 01/20/2025 8:02 AM EDT [facility] Creatinine 1.17 0.51 - 1.30 mg/dL 01/20/2025 8:02 AM EDT [facility] eGFR (CKD-EPIcr 2020) 56(L) >=60 mL/min/1.7 3 m2 01/20/2025 8:02 AM EDT [facility] Comment:Estimated GFR was ca lculated using the CKD-EPIcr (2020) equation refit without race. The equation is recommended by the National Kidney Foundation - [place] [employer] of Nephrology Task Force. Blood VENOUS BLOOD / Unknown Venipuncture / Unknown 01/20/2025 7:02 AM EDT 01/20/2025 7:14 AM EDT Bg Garcia DO CHEMISTRY ORDERABLES Final R esult Performing Organization Address City/[facility] Co de Phone Number [facility] [employer] [address] , [place] [address] * (ABNORMAL) HEMOGLOBIN A1C (01/20/2025 7:02 AM EDT) Pathologist [facility] Hgb A1C 8.9(H) 4.2 - 5.6 % 01/20/2025 7:52 AM EDT [facility] [employer] Est. Avg Glucose 209 mg/dL 01/20/2025 7:52 AM EDT [facility] [employer] [facility] Blood VENOUS BLOOD / Unknown Venipuncture / Unknown 01/20/2025 7:02 AM EDT 01/20/2025 7:14 AM EDT Narrative [facility] [employer] [facility] - 01/20/2025 7:52 AM EDT REFERENCE RANGE: Normal: 4.0-5.6% Pre-diabetes: 5.7-6.4% Provisional diagnosis of diabetes: >6.4% Hgb F>10% and anything which shortens red cell survival, such as hemolytic anemia, or unstable hemoglobin variants such as HbSS, HbSC, or HbCC, will lower the HbA1c value associated with a given level of glycemic control. Bg Garcia DO CHEMISTRY ORDERABLES Final R esult Performing Organization Address City/[facility] Co de Phone Number [facility] [employer] [address] , [place] [address] * (ABNORMAL) GLUCOSE METER POC (01/20/2025 4:30 AM EDT) Glucose Meter POC 359(H) 70 - 100 mg/dL 01/20/2025 4:31 AM EDT [facility] Sample Type Capillary 01/20/2025 4:31 AM EDT [facility] Patient Status Non-Critical Patient 01/20/2025 4:31 AM EDT [facility] Blood BLOOD SPECIMEN / Unknown 01/20/2025 4:30 AM EDT 01/20/2025 4:31 AM EDT Michael Hilliard MD POINT OF CARE TEST ORDERABLES Fi nal Result Performing Organization Address [facility] Co de Phone Number [facility] [address] [place] [address] * (ABNORMAL) GLUCOSE METER POC (01/20/2025 3:05 AM EDT) Glucose Meter POC 422(H) 70 - 100 mg/dL 01/20/2025 3:06 AM EDT [facility] Sample Type Capillary 01/20/2025 3:06 AM EDT [facility] Patient Status Non-Critical Patient 01/20/2025 3:06 AM EDT [facility] Blood BLOOD SPECIMEN / Unknown 01/20/2025 3:05 AM EDT 01/20/2025 3:06 AM EDT Michael Hilliard MD POINT OF CARE TEST ORDERABLES Fi nal Result Performing Organization Address [facility] de Phone Number [place] [phone] * (ABNORMAL) GLUCOSE METER POC (01/20/2025 12:56 AM EDT) Glucose Meter POC 489(HH) 70 - 100 mg/dL 01/20/2025 12:58 AM EDT [facility] Sample Type Capillary 01/20/2025 12:58 AM EDT [facility] Patient Status Non-Critical Patient 01/20/2025 12:58 AM EDT [facility] Blood BLOOD SPECIMEN / Unknown 01/20/2025 12:56 AM EDT 01/20/2025 12:58 AM EDT Narrative [facility] - 01/20/2025 12:58 AM EDT Critical results for Point of Care instruments are made directly available to testing personnel and should be communicated to the healthcare provider. Michael Hilliard MD POINT OF CARE TEST ORDERABLES Fi nal Result Performing Organization Address [facility] [place] [address] * (ABNORMAL) GLUCOSE METER POC (01/19/2025 11:36 PM EDT) Glucose Meter POC 521(HH) 70 - 100 mg/dL 01/19/2025 11:38 PM EDT [facility] Sample Type Capillary 01/19/2025 11:38 PM EDT [facility] Patient Status Non-Critical Patient 01/19/2025 11:38 PM EDT [facility] Blood BLOOD SPECIMEN / Unknown 01/19/2025 11:36 PM EDT 01/19/2025 11:38 PM EDT Narrative [facility] - 01/19/2025 11:38 PM EDT Critical results for Point of Care instruments are made directly available to testing personnel and should be communicated to the healthcare provider. Michael Hilliard MD POINT OF CARE TEST ORDERABLES Fi nal Result Performing Organization Address [facility] de Phone Number [place] [phone] * (ABNORMAL) GLUCOSE METER POC (01/19/2025 11:13 PM EDT) Glucose Meter POC 548(HH) 70 - 100 mg/dL 01/19/2025 11:15 PM EDT [facility] Sample Type Capillary 01/19/2025 11:15 PM EDT [facility] Patient Status Non-Critical Patient 01/19/2025 11:15 PM EDT [facility] Blood BLOOD SPECIMEN / Unknown 01/19/2025 11:13 PM EDT 01/19/2025 11:15 PM EDT Narrative [facility] - 01/19/2025 11:15 PM EDT Critical results for Point of Care instruments are made directly available to testing personnel and should be communicated to the healthcare provider. us Michael Hilliard MD POINT OF CARE TEST ORDERABLES Fi nal Result Performing Organization Address [facility] de Phone Number [facility] [address] [place] [address] * ECG AND WAVEFORMS - TELEMETRY (01/19/2025 7:00 PM EDT) ECG INTERPRET First Degree Sinus Rhythm [facility] 01/19/2025 7:00 PM EDT Narrative [facility] - 01/19/2025 7:09 PM EDT 1ST DEGREE AVB - ROUTINE/EW CT 0.22 QRS 0.08 RR 0.73 QT 0.41 QTc 0.48 See Clinical Report link for waveform capture us Unknown Provider POINT OF CARE CARDIOLOGY Final Result Performing Organization Address [facility] de Phone Number [facility] [address] [place] [address] * ECG AND WAVEFORMS - TELEMETRY (01/19/2025 4:06 PM EDT) ECG INTERPRET NSR [facility] 01/19/2025 4:06 PM EDT Narrative [facility] - 01/19/2025 4:45 PM EDT MG/ADMIT CT 0.19 QRS 0.07 RR 0.70 QT 0.38 QTc 0.45 See Clinical Report link for waveform capture us Unknown Provider POINT OF CARE CARDIOLOGY Final Result Performing Organization Address [facility] Co de Phone Number [facility] [address] [place] [phone] * EK EKG 12 LEAD (01/19/2025 3:32 PM EDT) Anatomical Region Laterality Modality Electrocardiogra phy 01/19/2025 3:39 PM EDT Impressions 01/20/2025 8:[address] [facility] Test Date: 2025-01-19 Pat Name: ELIZ DANIELS Department: DEPID Room: [facility] Gender: Female Senior Developer: BT : 1975 Requested By: MICHAEL Juarez Order Number: [id number] Reading MD: Zackery Mcgraw Measurements Intervals [place] Rate: 84 P: 64 CT: 180 QRS: -12 QRSD: 89 T: 59 QT: 402 QTc: 476 Interpretive Statements SINUS RHYTHM PRWP NONSPECIFIC T-WAVE ABNORMALITY Electronically Signed On 01-20-2025 08:39:51 EDT by Zackery Mcgraw Narrative Procedure Note Zackery Mcgraw MD - 01/20/[address] [facility] Test Date: 2025-01-19 Pat Name: ELIZ DANIELS Department: DEPID Room: [facility] 2 Gender: Female Senior Developer: BT : 1975 Requested By: MICHAEL Juarez Order Number: [id number] Reading MD: Zackery Mcgraw Measurements Intervals [place] Rate: 84 P: 64 CT: 180 QRS: -12 QRSD: 89 T: 59 QT: 402 QTc: 476 Interpretive Statements SINUS RHYTHM PRWP NONSPECIFIC T-WAVE ABNORMALITY Electronically Signed On 01-20-2025 08:39:51 EDT by Zackery Mcgraw us Michael Hilliard MD IMG ECG ORDERABLES Final Result * (ABNORMAL) GLUCOSE METER POC (01/19/2025 2:39 PM EDT) [facility] Glucose Meter POC 247(H) 70 - 100 mg/dL 01/19/2025 2:40 PM EDT [facility] Sample Type Capillary 01/19/2025 2:40 PM EDT [facility] Patient Status Non-Critical Patient 01/19/2025 2:40 PM EDT [facility] Blood BLOOD SPECIMEN / Unknown 01/19/2025 2:39 PM EDT 01/19/2025 2:40 PM EDT us Michael Hilliard MD POINT OF CARE TEST ORDERABLES Fi nal Result [facility] [address] [place] [address] [phone] * PAROXYSMAL ATRIAL FIBRILLATION ABLATION WITH 3D MAPPING (01/19/2025 2:30 PM EDT) Narrative [facility] - 01/22/2025 10:21 AM EDT Successful PVI for PAF Successful CTI line for typical atrial flutter Procedure Details [facility] Electrophysiology Procedure [...] gained access in right femoral vein. A 9-Cymraes sheath for ICE, 8F sheath for CS [...] injection, pressure monitoring , and fluoroscopy in THAI and ROSA projections. We placed the SL-1 Sheaths inside the left atrium. Then a [place]- array catheter with deflectable curve was advanced into the sheath which was later exchanged to an irrigated ablation catheter. Using [place]- Array catheter and Carto navigation system a [...] transferred to the floor in stable condition. us Michael Hilliard MD ELECTROPHYSIOLOGY ORDERABLES Fin al Result [facility] * (ABNORMAL) ACTIVATED CLOTTING TIME LR POC (01/19/2025 2:01 PM EDT) ACT-LR 326(H) 89 - 169 second(s) 01/19/2025 3:32 PM EDT [facility] Blood BLOOD SPECIMEN / Unknown 01/19/2025 2:01 PM EDT 01/19/2025 3:32 PM EDT us Michael Hilliard MD POINT OF CARE TEST ORDERABLES Fi nal Result Performing Organization Address [facility] Co de Phone Number [facility] [address] [place] [address] * (ABNORMAL) ACTIVATED CLOTTING TIME LR POC (01/19/2025 1:43 PM EDT) ACT-LR 311(H) 89 - 169 second(s) 01/19/2025 1:48 PM EDT [facility] Blood BLOOD SPECIMEN / Unknown 01/19/2025 1:43 PM EDT 01/19/2025 1:48 PM EDT us Michael Hilliard MD POINT OF CARE TEST ORDERABLES Fi nal Result Performing Organization Address [facility] de Phone Number [facility] [address] [place] [address] * (ABNORMAL) ACTIVATED CLOTTING TIME LR POC (01/19/2025 1:24 PM EDT) ACT-LR 283(H) 89 - 169 second(s) 01/19/2025 1:28 PM EDT [facility] Blood BLOOD SPECIMEN / Unknown 01/19/2025 1:24 PM EDT 01/19/2025 1:28 PM EDT us Michael Hilliard MD POINT OF CARE TEST ORDERABLES Fi nal Result Performing Organization Address [facility] de Phone Number [facility] [address] [place] [address] * (ABNORMAL) BASIC METABOLIC PANEL (01/19/2025 10:48 AM EDT) Sodium 139 136 - 145 mmol/L 01/19/2025 11:25 AM EDT [facility] Potassium 3.9 3.5 - 5.0 mmol/L 01/19/2025 11:25 AM EDT [facility] Chloride 99 98 - 107 mmol/L 01/19/2025 11:25 AM EDT [facility] Total CO2 23 22 - 29 mmol/L 01/19/2025 11:25 AM EDT [facility] Anion Gap 17(H) 7 - 16 mmol/L 01/19/2025 11:25 AM EDT [facility] Calcium 9.3 8.6 - 10.4 mg/dL 01/19/2025 11:25 AM EDT [facility] Glucose Lvl 286(H) 70 - 99 mg/dL 01/19/2025 11:25 AM EDT [facility] BUN 13 6 - 20 mg/dL 01/19/2025 11:25 AM EDT [facility] Creatinine 0.79 0.51 - 1.30 mg/dL 01/19/2025 11:25 AM EDT [facility] eGFR (CKD-EPIcr 2020) 90 >=60 mL/min/1.7 3 m2 01/19/2025 11:25 AM EDT [facility] Comment:Estimated GFR was ca lculated using the CKD-EPIcr (2020) equation refit without race. The equation is recommended by the [employer] - [place] [employer] Task Force. Blood VENOUS BLOOD / Unknown Venipuncture / Unknown 01/19/2025 10:48 AM EDT 01/19/2025 10:48 AM EDT Michelle Bull REMOTE ENCODING OPERATIONS SUPERVISOR CHEMISTRY ORDERABLES Final Result [facility] [address] [place] [id number] * (ABNORMAL) CBC WITH DIFF (01/19/2025 10:48 AM EDT) WBC 8.8 3.7 - 10.3 x10(3)/mcL 01/19/2025 10:56 AM EDT [facility] RBC 4.78 3.90 - 5.20 x10(6)/mcL 01/19/2025 10:56 AM EDT [facility] Hgb 13.3 11.2 - 15.7 g/dL 01/19/2025 10:56 AM EDT [facility] Hct 40.5 34.0 - 45.0 % 01/19/2025 10:56 AM EDT [facility] MCV 84.7 80.0 - 100.0 fL 01/19/2025 10:56 AM EDT [facility] MCH 27.8 26.0 - 34.0 pg 01/19/2025 10:56 AM EDT [facility] MCHC 32.8 30.7 - 35.5 g/dL 01/19/2025 10:56 AM EDT [facility] RDW 14.5 <=14.9 % 01/19/2025 10:56 AM EDT [facility] Platelet 230 155 - 369 x10(3)/mcL 01/19/2025 10:56 AM EDT [facility] MPV 9.3 8.8 - 12.5 fL 01/19/2025 10:56 AM EDT [facility] Neut Percent 76.2 % 01/19/2025 10:56 AM EDT [facility] Comment:Neutrophils equals s egs plus bands Imm Gran% 0.5 % 01/19/2025 10:56 AM EDT [facility] Comment:Automated count of m etamyelocytes, myelocytes and promyelocytes. Lymph Percent 13.9 % 01/19/2025 10:56 AM EDT [facility] [place] Percent 6.7 % 01/19/2025 10:56 AM EDT [facility] Eos Percent 2.6 % 01/19/2025 10:56 AM EDT [facility] Baso Percent 0.1 % 01/19/2025 10:56 AM EDT [facility] Neut # 6.7(H) 1.6 - 6.1 x10(3)/mcL 01/19/2025 10:56 AM EDT [facility] Comment:Neutrophils equals s egs plus bands IMMGRAN# 0.0 0.0 - 0.1 x10(3)/mcL 01/19/2025 10:56 AM EDT [facility] Comment:Automated count of m etamyelocytes, myelocytes and promyelocytes. An absolute IG <0.1 is reported as 0.0. Lymph # 1.2 1.2 - 3.9 x10(3)/mcL 01/19/2025 10:56 AM EDT [facility] [place] # 0.6 0.3 - 0.9 x10(3)/mcL 01/19/2025 10:56 AM EDT [facility] Eos# 0.2 0.0 - 0.5 x10(3)/mcL 01/19/2025 10:56 AM EDT [facility] Baso # 0.0 0.0 - 0.1 x10(3)/mcL 01/19/2025 10:56 AM EDT [facility] Blood VENOUS BLOOD / Unknown Venipuncture / Unknown 01/19/2025 10:48 AM EDT 01/19/2025 10:48 AM EDT Michelle Bull REMOTE ENCODING OPERATIONS SUPERVISOR HEMATOLOGY ORDERABLES Final Result [facility] [address] [place] [address] documented in this encounter Visit Diagnoses Diagnosis [...] dose on Sat01/19/25 at 1545, Until Discontinued 1544 (Not Given - Provider: Raina Mcgovern RN [...] 2100, Until Discontinued 2019 (Given - Provider: mAe Chavarria RN) desvenlafaxine succinate (PRISTIQ) 24 hr [...] dose on Sat01/19/25 at 1630, Until Discontinued 1741 (Given - Provider: Raina Mcgovern RN)2346 (Given [...] Factor (Patient Specific, Resistant): 14, Insulin Calculator 2345 (Given - Provider: Ame Chavarria RN - [...] of insulin. Waste Sort Code = BLACK RA Hazardous Waste Container 0316 (Given - Provid [...] 0800 (Non- Med Documentation - Provider: Raina Mcgovern RN)1200 (Due) insulin Regular Hum U-500 conc Soln 120 Units 120 Units, Subcutaneous, 2 TIMES DAILY, First dose on Sat01/20/25 at 0900, Until Discontinued, Waste Sort Code = BLACK TAMIR Hazardous Waste Container 0900 (Due) losartan (COZAAR) tablet 100 mg 100 mg, Oral, DAILY, First dose on Sat01/19/25 at 1545, Until Discontinued, +++ARB Medication+++ 1545 (Not Given - Provider: Raina Mcgovern RN - Reason: Patient Declined - Comment: patient wants to restart home meds tomorrow) 0857 (Given - Provider: Raina Mcgovern RN) metoprolol succinate ER (TOPROL-XL) XL tablet 100 mg 100 mg, Oral, DAILY, First dose on Sat01/19/25 at 1545, Until Discontinued, May divide tablets in half; do not crush or chew. 1741 (Given - Provider: Raina Mcgovern RN) 0857 (Given - Provider: Raina Mcgovern RN) multivitamin with folic acid (THERAGRAN) 400 mcg tablet 1 Tablet 1 Tablet, Oral, DAILY, First dose on Sat01/19/25 at 1545, Until Discontinued 154 (Not Given - Provider: Raina Mcgovern RN - Reason: Patient Declined) 0857 (Given - Provider: Raina Mcgovern RN) potassium chloride (KLOR-CON) tablet 10 mEq [...] Muscle spasms 0105 (Given - Provider: Ame Chavarria RN) dextrose 50 % solution 25 mL 25 [...] Chavarria, ENRICO) 0447 (Given - Provider: Ame Chavarria, ENRICO)0901 (Given - Provider: Raina Mcgovern RN) hydrOXYzine [...] 1532, Until Sat01/20/25 at 1656, Nausea, Post-op Or ondansetron (ZOFRAN) injection 4 [...] 1 FLUoxetine (PROzac) capsule 40 mg 1 glucagon (GLUCAGEN) injection 1 mg 1 2024 [...] 01/19/2025 traZODone (DESYREL) tablet 100 mg 1 traZODone (DESYREL) tablet 150 mg 1 insulin aspart U-100 (NovoLO G) injection 1-10 [...] Time PHQ-9 Depression Total Score: 1 01/21/20 10:45 AM EDT PHQ-2 Depression Total Score: 1 01/21/20 10:45 AM EDT documented as of this encounter Care Teams Brake Holder Relationship Specialty Start Date End Date Carlos Dean MD PCP - General 11/08/09 documented as of this encounter
--- OUTSIDE RECORDS SUMMARY | 2025-01-19 10:25 | XMS_ITS | Encounter Summary ---
Author Organization [place] [address] Care Team Providers Care Education Paraprofessional Name Role Phone Carlos Dean MD Primary Care Provider [phone] Reason for Visit * Auth/Cert/Inpt Specialty Diagnoses / Procedures Referred By Contac t Referred To Contact Diagnoses Paroxysmal atrial fibrillation (HCC) Paroxysmal atrial fibrillation (HCC) [I48.0] Procedures VT COMPRE EP EVAL ABLTJ ATR FIB PULM VEIN ISOLATION VT ICAR CATH ABLATION DISCRETE MECHANISM ARRHYTHMIA VT INTRACARDIAC ELECTROPHYSIOLOGIC 3D MAPPING VT INTRACARD ECHOCARD W/THER/DX IVNTJ INCL IMG S&I PAROXYSMAL ATRIAL FIBRILLATION ABLATION WITH 3D MAPPING Referral ID Status Reason Start Date Expiration Date Visits Re quested Visits Authorized [id number] 1 1 Encounter Details Date Type Department Care Team (Late st Contact Info) Description 01/19/2025 11:25 AM EDT - 01/19/2025 1:50 PM EDT Surgery [facility] FIELD REIMBURSEMENT [facility]NA[facility] [place] [address] Michael Hilliard MD [address] [place] [id number] PAROXYSMAL ATRIAL FIBRILLATION ABLATION WITH 3D MAPPING Surgery Details Date/Time Status Location OR Service Patient Class Case Class Case Type Trauma Case? 01/19/2025 11:25 AM Posted [facility]G CARDIAC FIELD REIMBURSEMENT MANAGER IMAGING [facility] EP LAB 2 Cardiac Same Day Surgery Elective Panel 1 Procedure LRB Anes Op Region Wound Class Comments PAROXYSMAL ATRIAL FIBRILLATION ABLATION WITH 3D MAPPING N/A General PAROXYSMAL ATRIAL FIBRILLATION ABLATION WITH 3D MAPPING Surgeon Surgeon Role Service Panel Michael Hilliard MD Primary Cardiac 1 Special Needs [...] medical care, and heating? Somewhat hard 01/20/2025 [facility] Occupat ional Health - Occupational Stress [...] money to get more. Never true 01/20/2025 [facility] Utilities Answer Date Recorded In the past 12 months has th e electric, gas, oil, or water company threatened to shut off services in your home? No 01/20/2025 [facility] IP Transportation Answer D ate Recorded [...] from the original note were not included. [facility] Discharge Summary Patient Name: Eliz [...] for Tx. She's scheduled to see an paratransit driver outpatient. Discussed with her/family the need to [...] noted Psychiatric: Normal mood, affect, and behavior [id number] Stroke Risk Points: 3 Values used to [...] were sent to [facility] [address] [address] Hours: Saturday-Saturday 8:00am - 6:30pm Saturday-Saturday 9:00am - 5:00pm pantoprazole [address] [facility] Follow Up: Michelle Bull APRN [address] [address] Follow up on 03/08/2025 at 2:00 pm [...] site; Or any questions about your medications. [facility] [address] [place] [address] Carl Hand. [address] [place] [address] +++++++++++++++++++++++++++++++++++++++++++++++++++++++++++++++++++ [facility] Discharge Instructions - Following Anesthesia [...] our office at . Get Well Soon! [facility] +++++++++++++++++++++++++++++++++++++++++++++++++++++++++++++++++++ documented in this encounter Medications at Time of Discharge amLODIPine (NORVASC) 10 mg Oral Tablet Take 10 mg by mouth daily. atorvastatin (LIPITOR) 40 mg Oral Tablet Take 40 mg by mouth nightly. at bedtime desvenlafaxine 50 mg Oral Tablet Sustained Release 24 hr Take 1 tablet every day by oral route. DEXCOM G7 SENSOR [facility] Device 12/04/2024 ELIQUIS 5 mg Oral Tablet Take 1 tablet twice a day by oral route. FREESTYLE LANCETS 28 gauge [facility] 10/20/2024 fUROsemide (LASIX) 40 mg Oral [...] Caregiver Name Cornelius-spouse Caregiver Does patient need him specialists? No Activities of Daily Living Prior to [...] not needed concern identified and addressed by High Lead Yarder Anticipated post-acute care needs Home with OP [...] with ADL's and lives with spouse, Cornelius ([phone]), and he can transport home at d/c. [...] A&Ox4. Chronic leg pain managed with PRN [place] and one time dose of flexeril. Denies SOA. IV without complication. R groin site is clean, dry, and intact with no signs of bleeding or hematoma. Call light and belongings in reach. Pt had no orders for insulin or BG checks. Message sent to supervisor epoxy fabrication for Judy ARCHER PA with following message, [...] Hilliard MD - 01/19/2025 2:15 PM EDT [facility] OPERATIVE/PROCEDURE NOTE Joel Eliz L January 19, [...] AM EDTAssociated Order(s): IP CONSULT TO HOSPITALIST [facility] Consult Note Name: Eliz Daniels : [...] 12 LEAD Result Date: 01/20/2025 [facility] Test Date: 2025-01-19 Pat [facility] Department: [facility] Room: [facility] 2 Gender: Female Hot Dog Vendor: HEIDY QUINONESB: 1975 Requested By: MICHAEL Juarez Order Number: [id number] Reading MD: Zackery Mcgraw Measurements Intervals [place] Rate: 84 P: 64 VT: 180 QRS: -12 QRSD: 89 T: 59 QT: 402 QTc: 476 Interpretive Statements SINUS RHYTHM PRWP NONSPECIFIC T-WAVE ABNORMALITY Electronically Signed On 01-20-2025 08:39:51 EDT by Zackery Mcgraw Results for orders placed during the hospital encounter of 01/19/25 EK EKG [address] Test Date: 2025-01-19 [facility] Room: [facility] 2 Gender: Female Hot Dog Vendor: HEIDY STEEL: 1975 Requested By: MICHAEL Juarez Order Number: [id number] Reading MD: Zackery Mcgraw Measurements Intervals [place] Rate: 84 P: 64 VT: 180 QRS: -12 QRSD: 89 T: 59 QT: 402 QTc: 476 Interpretive Statements SINUS RHYTHM PRWP NONSPECIFIC T-WAVE ABNORMALITY Electronically Signed On 01-20-2025 08:39:51 EDT by Zackery Mcgraw All Radiology/Labs/EKG's/Cardiac testing reviewed. Active Hospital Problems Diagnosis *Paroxysmal atrial fibrillation (HCC) CKD (chronic kidney disease) Status post ablation of atrial fibrillation A-fib ([facility]) Depressive disorder Sleep apnea, obstructive Morbid obesity with BMI of 50.0-59.9, adult ([facility]) Hyperlipidemia Diabetes mellitus ([facility]) Essential hypertension Admission Assessment and Plan: Assessment [...] Morbid obesity with BMI of 50.0-59.9, adult ([facility]) -Complicates all aspects of care Sleep apnea, [...] ON CHART, ADMITTED TO TELEMETRY FLOOR FROM FIELD REIMBURSEMENT MANAGER FOR PROCEDURE(S): Procedure(s): PAROXYSMAL ATRIAL FIBRILLATION ABLATION [...] Office Visit [facility] [address] [facility] [address] [place] [address] Michelle Bull APRN [address] [place] [address] documented as of this encounter [...] 8:37 AM EDTThis note is in progress. [facility] Consult Note Name: Eliz Daniels : [...] consulted for hyperglycemia. She reports that she [id number] 140U bid with BG that typically run [...] 01/20/2025 [facility] Date:2025-01-19 Pat [facility] Department: DEPIDPatient ID: [id number] Room: [facility] Gender:Female Hot Dog Vendor: HEIDY : [id number] By: MICHAEL Juarez Order Number: [id number] MD: Zackery Mcgraw MeasurementsIntervals [place] Rate: 84P: 64 VT: 180QRS: -12 QRSD: 89 T: 59QT: 402 QTc: 476InterpretiveStatements SINUS RHYTHM PRWP NONSPECIFIC T-WAVE ABNORMALITY ElectronicallySigned On 01-20-2025 08:39:51 EDT by Zackery Mcgraw Results for orders placed during the hospital encounter of 01/19/25 EK EKG [address] Test Date: 2025-01-19 Pat Name: [facility] Department: DEPID Room: [facility] Gender: Female Hot Dog Vendor: : 1975 Requested By: MICHAEL Juarez Order Number: [id number] Reading MD: Zackery Mcgraw Measurements Intervals [place] Rate: 84 P: 64 VT: 180 QRS: -12 QRSD: 89 T: 59 [...] OVARY REMOVAL VENTRAL HERNIA REPAIR N/A 04/04/2015 CAROLY[facility] ROBOTIC ASSISTED RECURRENT VENTRAL HERNIA REPAIR WITH [...] ER (TOPROL-XL) 100 mg Oral Tablet Sustained Grasani70 hr multivitamin (THERAGRAN) Oral Tablet Take 1 [...] Transportation Needs: High Risk (09/26/2021) Received from [employer] Medicaid PRAPARE Survey 1.0 Has lack of transportation kept you from medical appointments, meetings,work, or from getting things needed for daily living? Check all thatapply.: Yes, it has kept me from medical appointments or from getting mymedications Housing Stability: Low Risk (09/26/2021) Received from [facility] Medicaid PRAPARE Survey 1.0 What is [...] GLUCOSE METER POC (01/20/2025 10:20 AM EDT) [facility] Glucose Meter POC 315(H) 70 - 100 mg/dL 01/20/2025 10:22 AM EDT [facility] Sample Type Capillary 01/20/2025 10:22 AM EDT [facility] Patient Status Non-Critical Patient 01/20/2025 10:22 AM EDT [facility] Blood BLOOD SPECIMEN / Unknown 01/20/2025 10:20 AM EDT 01/20/2025 10:22 AM EDT us Michael Hilliard MD POINT OF CARE TEST ORDERABLES Fi nal Result [facility] [address] [id number] * ECG AND WAVEFORMS - TELEMETRY (01/20/2025 7:26 AM EDT) Pathologist [facility] ECG INTERPRET NSR [facility] 01/20/2025 7:26 AM EDT Narrative [facility] - 01/20/2025 7:31 AM EDT ROUTINE (BS) VT 0.19 QRS 0.08 RR 0.82 QT 0.44 QTc 0.49 See Clinical Report link for waveform capture us Unknown Provider POINT OF CARE CARDIOLOGY Final Result [facility] [address] [id number] * (ABNORMAL) CBC WITH DIFF (01/20/2025 7:02 AM EDT) [facility] WBC 13.9(H) 3.7 - 10.3 x10(3)/mcL 01/20/2025 [...] Percent 83.6 % 01/20/2025 7:29 AM EDT [facility] Comment:Neutrophils equals s egs plus bands Imm Gran% 0.9 % 01/20/2025 7:29 AM EDT [facility] Comment:Automated count of m etamyelocytes, myelocytes and promyelocytes. Lymph Percent 7.9 % 01/20/2025 7:29 AM EDT [facility] Todd Percent 7.1 % 01/20/2025 7:29 AM EDT [facility] Eos Percent 0.1 % 01/20/2025 7:29 AM EDT [facility] Baso Percent 0.4 % 01/20/2025 7:29 AM EDT [facility] Neut # 11.6(H) 1.6 - 6.1 x10(3)/mcL 01/20/2025 7:29 AM EDT [facility] Comment:Neutrophils equals s egs plus bands IMMGRAN# 0.1 0.0 - 0.1 x10(3)/mcL 01/20/2025 7:29 AM EDT [facility] Comment:Automated count of m etamyelocytes, myelocytes and promyelocytes. An absolute IG <0.1 is reported as 0.0. Lymph # 1.1(L) 1.2 - 3.9 x10(3)/mcL 01/20/2025 7:29 AM EDT [facility] Todd # 1.0(H) 0.3 - 0.9 x10(3)/mcL 01/20/2025 7:29 AM EDT [facility] Eos# 0.0 0.0 - 0.5 x10(3)/mcL 01/20/2025 7:29 AM EDT [facility] Baso # 0.1 0.0 - 0.1 x10(3)/mcL 01/20/2025 7:29 AM EDT [facility] Blood VENOUS BLOOD / Unknown Venipuncture / Unknown 01/20/2025 7:02 AM EDT 01/20/2025 7:14 AM EDT Bg Garcia DO HEMATOLOGY ORDERABLES Final Result Performing Organization Address City/[facility]/ZIP Co de Phone Number [facility] [address] , [place] [address] * (ABNORMAL) BASIC METABOLIC PANEL (01/20/2025 7:02 AM EDT) Sodium 134(L) 136 - 145 mmol/L 01/20/2025 8:02 AM EDT [facility] Potassium 4.5 3.5 - 5.0 mmol/L 01/20/2025 8:02 AM EDT [facility] Chloride 97(L) 98 - 107 mmol/L 01/20/2025 8:02 AM EDT [facility] Total CO2 22 22 - 29 mmol/L [...] recommended by the National Kidney Foundation - [place] Citizen [employer] of Nephrology Task Force. Blood VENOUS BLOOD / Unknown Venipuncture / Unknown 01/20/2025 7:02 AM EDT 01/20/2025 7:14 AM EDT Bg Garcia DO CHEMISTRY ORDERABLES Final R esult [facility] [address] , [address] [place], [place] [id number] * (ABNORMAL) HEMOGLOBIN A1C (01/20/2025 7:02 AM EDT) [facility] Hgb A1C 8.9(H) 4.2 - 5.6 % 01/20/2025 7:52 AM EDT [facility] Est. Avg Glucose 209 mg/dL 01/20/2025 7:52 AM EDT [facility] Blood VENOUS BLOOD / Unknown Venipuncture / Unknown 01/20/2025 7:02 AM EDT 01/20/2025 7:14 AM EDT Narrative [facility] - 01/20/2025 7:52 AM EDT REFERENCE [...] ORDERABLES Final R esult Performing Organization Address [facility]/ZIP Co de Phone Number [facility] , [place] [address] * (ABNORMAL) GLUCOSE METER POC (01/20/2025 4:30 AM EDT) [facility] Glucose Meter POC 359(H) 70 - 100 mg/dL 01/20/2025 4:31 AM EDT [facility] Sample Type Capillary 01/20/2025 4:31 AM EDT [facility] Patient Status Non-Critical Patient 01/20/2025 4:31 AM EDT [facility] Blood BLOOD SPECIMEN / Unknown 01/20/2025 4:30 AM EDT 01/20/2025 4:31 AM EDT Michael Hilliard MD POINT OF CARE TEST ORDERABLES Fi nal Result Performing Organization Address [facility] Co de Phone Number [address] [address] * (ABNORMAL) GLUCOSE METER POC (01/20/2025 3:05 AM EDT) Glucose Meter POC 422(H) 70 - 100 mg/dL 01/20/2025 3:06 AM EDT [facility] Sample Type Capillary 01/20/2025 3:06 AM EDT [facility] Patient Status Non-Critical Patient 01/20/2025 3:06 AM EDT [facility] Blood BLOOD SPECIMEN / Unknown 01/20/2025 3:05 AM EDT 01/20/2025 3:06 AM EDT Michael Hilliard MD POINT OF CARE TEST ORDERABLES Fi nal Result Performing Organization Address [facility] [place] [address] * (ABNORMAL) GLUCOSE METER POC (01/20/2025 12:56 AM EDT) Glucose Meter POC 489(HH) 70 - 100 mg/dL 01/20/2025 12:58 AM EDT [facility] Sample Type Capillary 01/20/2025 12:58 AM EDT [facility] Patient Status Non-Critical Patient 01/20/2025 12:58 AM EDT [facility] Blood BLOOD SPECIMEN / Unknown 01/20/2025 12:56 AM EDT 01/20/2025 12:58 AM EDT Narrative [facility] - 01/20/2025 12:58 AM EDT Critical results for Point of Care instruments are made directly available to testing personnel and should be communicated to the healthcare provider. Michael Hilliard MD POINT OF CARE TEST ORDERABLES Fi nal Result Performing Organization Address [facility] [place] [address] * (ABNORMAL) GLUCOSE METER POC (01/19/2025 11:36 PM EDT) Glucose Meter POC 521(HH) 70 - 100 mg/dL 01/19/2025 11:38 PM EDT [facility] Sample Type Capillary 01/19/2025 11:38 PM EDT [facility] Patient Status Non-Critical Patient 01/19/2025 11:38 PM EDT [facility] Blood BLOOD SPECIMEN / Unknown 01/19/2025 11:36 PM EDT 01/19/2025 11:38 PM EDT Narrative [facility] - 01/19/2025 11:38 PM EDT Critical results for Point of Care instruments are made directly available to testing personnel and should be communicated to the healthcare provider. Michael Hilliard MD POINT OF CARE TEST ORDERABLES Fi nal Result Performing Organization Address [facility] [place] [address] * (ABNORMAL) GLUCOSE METER POC (01/19/2025 11:13 PM EDT) Glucose Meter POC 548(HH) 70 - 100 mg/dL 01/19/2025 11:15 PM EDT [facility] Sample Type Capillary 01/19/2025 11:15 PM EDT [facility] Patient Status Non-Critical Patient 01/19/2025 11:15 PM EDT [facility] Blood BLOOD SPECIMEN / Unknown 01/19/2025 11:13 PM EDT 01/19/2025 11:15 PM EDT Narrative [facility] - 01/19/2025 11:15 PM EDT Critical results for Point of Care instruments are made directly available to testing personnel and should be communicated to the healthcare provider. Michael Hilliard MD POINT OF CARE TEST ORDERABLES Fi nal Result Performing Organization Address [facility]/[place] [address] * ECG AND WAVEFORMS - TELEMETRY (01/19/2025 7:00 PM EDT) ECG INTERPRET First Degree Sinus Rhythm [facility] 01/19/2025 7:00 PM EDT Narrative [facility] - 01/19/2025 7:09 PM EDT 1ST DEGREE AVB - ROUTINE/EW VT 0.22 QRS 0.08 RR 0.73 QT 0.41 QTc 0.48 See Clinical Report link for waveform capture us Unknown Provider POINT OF CARE CARDIOLOGY Final Result Performing Organization Address [facility]/ZIP Co de Phone Number [facility] [address] [place] [address] * ECG AND WAVEFORMS - TELEMETRY (01/19/2025 4:06 PM EDT) ECG INTERPRET NSR [facility] 01/19/2025 4:06 PM EDT Narrative [facility] - 01/19/2025 4:45 PM EDT MG/ADMIT VT 0.19 QRS 0.07 RR 0.70 QT 0.38 QTc 0.45 See Clinical Report link for waveform capture us Unknown Provider POINT OF CARE CARDIOLOGY Final Result Performing Organization Address [facility] Co de Phone Number [facility] [address] [place] [address] * EK EKG 12 LEAD (01/19/2025 3:32 PM EDT) Anatomical Region Laterality Modality Electrocardiogra phy 01/19/2025 3:39 PM EDT Impressions 01/20/2025 8:[address] [facility] Test Date: 2025-01-19 Pat Name: ELIZ DANIELS Department: DEPID Room: [facility] 2 Gender: Female Hot Dog Vendor: HEIDY : 1975 Requested By: MICHAEL Juarez Order Number: [id number] Gladys MD: Zackery Mcgraw Measurements Intervals [place] Rate: 84 P: 64 VT: 180 QRS: -12 QRSD: 89 T: 59 QT: 402 QTc: 476 Interpretive Statements SINUS RHYTHM PRWP NONSPECIFIC T-WAVE ABNORMALITY Electronically Signed On 01-20-2025 08:39:51 EDT by Zackery Mcgraw Narrative Procedure Note Zackery Mcgraw MD - 01/20/2025 LINDSEY Campbell Test Date: 2025-01-19 Pat Name: ELIZ DANIELS Department: DEPID Room: [facility] Gender: Female Hot Dog Vendor: HEIDY : 1975 Requested By: MICHAEL Juarez Order Number: [id number] Reading MD: Zackery Mcgraw Measurements Intervals [place] Rate: 84 P: 64 VT: 180 QRS: -12 QRSD: 89 T: 59 QT: 402 QTc: 476 Interpretive Statements SINUS RHYTHM PRWP NONSPECIFIC T-WAVE ABNORMALITY Electronically Signed On 01-20-2025 08:39:51 EDT by Zackery Mcgraw us Michael Hilliard MD IMG ECG ORDERABLES Final Result * (ABNORMAL) GLUCOSE METER POC (01/19/2025 2:39 PM EDT) [facility] Glucose Meter POC 247(H) 70 - 100 mg/dL 01/19/2025 2:40 PM EDT [facility] Sample Type Capillary 01/19/2025 2:40 PM EDT [facility] Patient Status Non-Critical Patient 01/19/2025 2:40 PM EDT [facility] Blood BLOOD SPECIMEN / Unknown 01/19/2025 2:39 PM EDT 01/19/2025 2:40 PM EDT us Michael Hilliard MD POINT OF CARE TEST ORDERABLES Fi nal Result [facility] [address] [place] [address] * PAROXYSMAL ATRIAL FIBRILLATION ABLATION WITH 3D MAPPING (01/19/2025 2:30 PM EDT) Narrative [facility] - 01/22/2025 10:21 AM EDT Successful PVI for PAF Successful CTI line for typical atrial flutter Procedure Details [facility] Electrophysiology Procedure [...] gained access in right femoral vein. A 9-Portuguese sheath for ICE, 8F sheath for CS [...] injection, pressure monitoring , and fluoroscopy in MARIO and ROSA projections. We placed the SL-1 Sheaths inside the left atrium. Then a Lorena- array catheter with deflectable curve was advanced into the sheath which was later exchanged to an irrigated ablation catheter. Using Lorena- Array catheter and Carto navigation system a [...] ORDERABLES Fin al Result Performing Organization Address City/State/[facility] Co de Phone Number [facility] * (ABNORMAL) ACTIVATED CLOTTING TIME LR POC (01/19/2025 2:01 PM EDT) Pathologist [facility] ACT-LR 326(H) 89 - 169 second(s) 01/19/2025 3:32 PM EDT [facility] Blood BLOOD SPECIMEN / Unknown 01/19/2025 2:01 PM EDT 01/19/2025 3:32 PM EDT Michael Hilliard MD POINT OF CARE TEST ORDERABLES Fi nal Result Performing Organization Address City/State/[facility] de Phone Number [facility] [address] [place] [address] * (ABNORMAL) ACTIVATED CLOTTING TIME LR POC (01/19/2025 1:43 PM EDT) ACT-LR 311(H) 89 - 169 second(s) 01/19/2025 1:48 PM EDT [facility] Blood BLOOD SPECIMEN / Unknown 01/19/2025 1:43 PM EDT 01/19/2025 1:48 PM EDT Michael Hilliard MD POINT OF CARE TEST ORDERABLES Fi nal Result Performing Organization Address [facility] de Phone Number [facility] [address] [place] [address] * (ABNORMAL) ACTIVATED CLOTTING TIME LR POC (01/19/2025 1:24 PM EDT) ACT-LR 283(H) 89 - 169 second(s) 01/19/2025 1:28 PM EDT [facility] Blood BLOOD SPECIMEN / Unknown 01/19/2025 1:24 PM EDT 01/19/2025 1:28 PM EDT Michael Hilliard MD POINT OF CARE TEST ORDERABLES Fi nal Result Performing Organization Address [facility] de Phone Number [facility] [address] [place] [address] * (ABNORMAL) BASIC METABOLIC PANEL (01/19/2025 10:48 AM EDT) Sodium 139 136 - 145 mmol/L 01/19/2025 11:25 AM EDT [facility] Potassium 3.9 3.5 - 5.0 mmol/L 01/19/2025 11:25 AM EDT [facility] Chloride 99 98 - 107 mmol/L 01/19/2025 11:25 AM EDT [facility] Total CO2 23 22 - 29 mmol/L 01/19/2025 11:25 AM EDT [facility] Anion Gap 17(H) 7 - 16 mmol/L 01/19/2025 11:25 AM EDT [facility] Calcium 9.3 8.6 - 10.4 mg/dL 01/19/2025 11:25 AM EDT [facility] Glucose Lvl 286(H) 70 - 99 mg/dL 01/19/2025 11:25 AM EDT [facility] BUN 13 6 - 20 mg/dL 01/19/2025 11:25 AM EDT [facility] Creatinine 0.79 0.51 - 1.30 mg/dL 01/19/2025 11:25 AM EDT [facility] eGFR (CKD-EPIcr 2020) 90 >=60 mL/min/1.7 3 m2 01/19/2025 11:25 AM EDT [facility] Comment:Estimated GFR was ca lculated using the CKD-EPIcr (2020) equation refit without race. The equation is recommended by the National Kidney Foundation - [place] Citizen Society of Nephrology Task Force. Blood VENOUS BLOOD / Unknown Venipuncture / Unknown 01/19/2025 10:48 AM EDT 01/19/2025 10:48 AM EDT Michelle Bull [employer] CHEMISTRY ORDERABLES Final Result [facility] [address] [id number] * (ABNORMAL) CBC WITH DIFF (01/19/2025 10:48 AM EDT) WBC 8.8 3.7 - 10.3 x10(3)/mcL 01/19/2025 10:56 AM EDT [facility] RBC 4.78 3.90 - 5.20 x10(6)/mcL 01/19/2025 10:56 AM EDT [facility] Hgb 13.3 11.2 - 15.7 g/dL 01/19/2025 10:56 AM EDT [facility] Hct 40.5 34.0 - 45.0 % 01/19/2025 10:56 AM EDT [facility] MCV 84.7 80.0 - 100.0 fL 01/19/2025 10:56 AM EDT [facility] MCH 27.8 26.0 - 34.0 pg 01/19/2025 10:56 AM EDT [facility] MCHC 32.8 30.7 - 35.5 g/dL 01/19/2025 10:56 AM EDT [facility] RDW 14.5 <=14.9 % 01/19/2025 10:56 AM EDT [facility] Platelet 230 155 - 369 x10(3)/mcL 01/19/2025 10:56 AM EDT [facility] MPV 9.3 8.8 - 12.5 fL 01/19/2025 10:56 AM EDT [facility] Neut Percent 76.2 % 01/19/2025 10:56 AM EDT [facility] Comment:Neutrophils equals s egs plus bands Imm Gran% 0.5 % 01/19/2025 10:56 AM EDT [facility] Comment:Automated count of m etamyelocytes, myelocytes and promyelocytes. Lymph Percent 13.9 % 01/19/2025 10:56 AM EDT [facility] Todd Percent 6.7 % 01/19/2025 10:56 AM EDT [facility] Eos Percent 2.6 % 01/19/2025 10:56 AM EDT [facility] Baso Percent 0.1 % 01/19/2025 10:56 AM EDT [facility] Neut # 6.7(H) 1.6 - 6.1 x10(3)/mcL 01/19/2025 10:56 AM EDT [facility] Comment:Neutrophils equals s egs plus bands IMMGRAN# 0.0 0.0 - 0.1 x10(3)/mcL 01/19/2025 10:56 AM EDT [facility] Comment:Automated count of m etamyelocytes, myelocytes and promyelocytes. An absolute IG <0.1 is reported as 0.0. Lymph # 1.2 1.2 - 3.9 x10(3)/mcL 01/19/2025 10:56 AM EDT [facility] Todd # 0.6 0.3 - 0.9 x10(3)/mcL 01/19/2025 10:56 AM EDT [facility] Eos# 0.2 0.0 - 0.5 x10(3)/mcL 01/19/2025 10:56 AM EDT [facility] Baso # 0.0 0.0 - 0.1 x10(3)/mcL 01/19/2025 10:56 AM EDT [facility] Blood VENOUS BLOOD / Unknown Venipuncture / Unknown 01/19/2025 10:48 AM EDT 01/19/2025 10:48 AM EDT Michelle Bull SUPERVISOR [employer] HEMATOLOGY ORDERABLES Final Result [facility] [address] [place] [address] documented in this encounter Visit Diagnoses Diagnosis [...] Chavarria RN) 0857 (Given - Provider: Raina Mcgovern, ENRICO) [...] 0857 (Given - Provider: Raina Mcgovern, ENRICO) metoprolol succinate ER (TOPROL-XL) XL tablet 100 mg 100 mg, Oral, DAILY, First dose on Sat01/19/25 at 1545, Until Discontinued, May divide tablets in half; do not crush or chew. 1741 (Given - Provider: Raina Mcgovern RN) 0857 (Given - Provider: Raina Mcgovern, [...] documented as of this encounter Care Teams Education Paraprofessional Relationship Specialty Start Date End Date Carlos Dean MD PCP - General 11/08/09 documented as of this encounter
[2025-02-17 20:16] LABS: Hematocrit 35.7 % (37.0-47.0); Hemoglobin 11.5 g/dL (12.2-16.2); Immature Granulocytes % 0.7 %; Mean Corpuscular HGB Conc 32.2 g/dL (31.8-35.4); Mean Corpuscular Hemoglobin 27.8 pg (27.0-31.2); Mean Corpuscular Volume 86.2 fl (81-99); Nucleated Red Blood Cells % 0 %; Platelet Count 267 K/mm3 (142-424); Red Blood Count 4.14 M/mm3 (4.20-5.40); Red Cell Distribution Width-SD 45.1 fL; White Blood Count 9.4 K/mm3 (4.8-10.8)
[2025-02-17 20:38] LABS: Chloride 104 mmol/L (98-107); Potassium 4.1 mmoL/L (3.5-5.1); Sodium 142 mmol/L (136-145)
[2025-02-17 20:41] LABS: Alanine Aminotransferase 25 U/L (12-78); Alkaline Phosphatase 71 U/L (38-126); Anion Gap 13.1 mEq/L (5-15); Aspartate Amino Transferase 32 U/L (14-36); Bilirubin,Total 0.7 mg/dl (0.2-1.3); Blood Urea Nitrogen 12 mg/dl (7-17); Carbon Dioxide 29 mmol/L (22.0-30.0); Cholesterol 129 mg/dl (140-200); Creatinine,Serum 0.80 mg/dl (0.52-1.04); Estimated Glomerular Filt Rate 76 ml/min (>60); GFR (African American) 92 ML/MIN (>60); Total Protein,Serum 6.6 g/dl (6.3-8.2); Triglycerides 94 mg/dl (30-150)
[2025-02-17 20:42] LABS: Calcium 8.9 mg/dl (8.4-10.2); Glucose 110 mg/dl (74-100); HDL Cholesterol 53 mg/dl (40-60)
[2025-02-17 21:06] LABS: Albumin Level 3.5 g/dl (3.5-5.0); Albumin/Globulin Ratio 1.1 (1.1-1.8); Globulin 3.1 g/dL (1.3-3.2)
--- OUTSIDE RECORDS SUMMARY | 2025-02-22 10:55 | XMS_ITS | Clinical Summary ---
Author Organization Healthcare Address [address] [place] [address] Care Team Providers Care Communication And Outreach Manager Name Role Phone Carlos Dean MD Primary Care Provider [phone] Allergies No known active allergies Medications hydrALAZINE [...] week. Active ergocalciferol (Vitamin D-2) 1.25 MG (79974 UT) capsule Take 50,000 Units by mouth [...] Administration Dates Next Due Moderna COVID-19 Vaccine (Administrator Of Home Health) 12+ years ,07/20/2020 Family History Medical History [...] 2024 UKY-Zoster Vaccines (1 of 2) 2024 [id number] Vaccine (3 - season) 2024 08/17/2020, 07/20/2020 [...] to complete this topic Insurance Care Teams Communication And Outreach Manager Relationship Specialty Start Date End Date Carlos Dean MD PCP - General 08/05/20
--- OUTSIDE RECORDS SUMMARY | 2025-02-22 10:55 | XMS_ITS | Clinical Summary ---
Author Organization [facility] Address [address] [place] [id number] Care Team Providers Care Choir Leader Name Role Phone Carlos Dean MD Primary Care Provider [phone] Allergies No known active allergies Medications albuterol [...] times daily (with meals). Active folic acid/multivit,ir on,polygraph examiner (CENTRUM PO) Take by mouth. Ac [...] Influenza Vaccination (#1) 2024 Insurance Care Teams Choir Leader Relationship Specialty [place] [address] [place] [address] PCP - General Family Medicine 04/01/18
--- OUTSIDE RECORDS SUMMARY | 2025-02-22 10:55 | XMS_ITS | Encounter Summary ---
Author Organization [place] [address] Care Team Providers Care Canine Enforcement Officer Name Role Phone Carlos Dean MD Primary Care Provider [phone] Reason for Visit * Reason Onset Date Comments Appointment Needed 12/28/2024 AMERICAN INDIAN POLICY SPECIALIST appt ref b y Dr. Selvin Bain Encounter Details Date Type Department Care Team (Late st Contact Info) Description 12/28/2024 Telephone [facility] [address] [facility] [address] [place] [address] Clare Cardenas, Clerical Staff Appointment Needed (AMERICAN INDIAN POLICY SPECIALIST appt ref by Dr. Selvin Bain) Social [...] of Assessment Author No 04/05/2015 1:44 PM Stephany Carranza RN * Is the person blind [...] given to pt and [facility] * Telephone Encounter - Clare Cardenas, Clerical Staff - 12/28/2024 8:17 AM EDT Patient is being referred by Dr. Selvin Bain at [facility] for AF ablation. MR/REF scanned into media including rhythm strips. Please contact patient at [phone] Thank you documented in this encounter Plan of Treatment Upcoming Encounters Date Type Department Care Team (Late st Contact Info) Description 03/08/2025 2:00 PM EST Office Visit [facility] [address] [facility] [address] [place] [address] Michelle Bull APRN [address] [place] [address] documented as of this encounter Visit Diagnoses Not on filedocumented in this encounter Care Teams Canine Enforcement Officer Relationship Specialty Start Date End Date Carlos Dean MD PCP - General 11/08/09 documented as of this encounter
--- OUTSIDE RECORDS SUMMARY | 2025-02-22 10:56 | XMS_ITS | Encounter Summary ---
Author Organization [facility] [place] [place] [address] Care Team Providers Care Control Valve Technician Name Role Phone Carlos Dean MD Primary Care Provider [phone] Encounter Details Date Type Department Care Team [...] medical care, and heating? Somewhat hard 01/20/2025 [facility] of Occupat ional Health - Occupational Stress [...] money to get more. Never true 01/20/2025 [facility] Utilities Answer Date Recorded In the past 12 months has th e electric, gas, oil, or water company threatened to shut off services in your home? No 01/20/2025 [facility] H[facility]N [facility] IP Transportation Answer D ate Recorded [...] Assessment Author No 04/05/2015 1:44 PM Robert Cararnza RN * Does this person have serious [...] [facility] [address] [facility] [address] [place] [address] Michelle Bull APRN [address] [place] [address] documented as of this encounter Visit Diagnoses Not on filedocumented in this encounter Care Teams Control Valve Technician Relationship Specialty Start Date End Date Carlos Dean MD PCP - General 11/08/09 documented as of this encounter
--- OUTSIDE RECORDS SUMMARY | 2025-02-22 10:56 | XMS_ITS | Clinical Summary ---
Author Organization [facility] Address [address] [facility], [address] [place] [address] Care Team Providers Care Cap Sewer Name Role Phone Carlos Dean MD Primary Care Provider [phone] Allergies No known active allergies Medications amLODIPine [...] mg Oral Tablet Take by mouth. Active traZODone (DESYREL) 150 mg Oral Tablet 10/06/2024 Acti ve hydrALAZINE (APRESOLINE) 100 mg Oral Tablet 10/26/2024 Active fUROsemide (LASIX) 40 mg Oral Tablet 11/28/2024 Active ELIQUIS 5 mg Oral Tablet Take 1 tablet twice a day by oral route. Active atorvastatin (LIPITOR) 40 mg Oral Tablet Take 40 mg by mouth nightly. at bedtime Active DEXCOM G7 SENSOR Misc Device 12/04/2024 Active HYDROcodone-opal taminophen (NORCO) 5-325 mg Oral Tablet Take 1 tablet 3 times a day by oral route as needed. Active hydrOXYzine (ATARAX) 25 mg Oral Tablet Take 1 tablet every 6 hours by oral route as needed. Active metoprolol succinate ER (TOPROL-XL) 100 mg Oral Tablet Sustained Release 24 hr 12/15/2024 Activ e meclizine (ANTIVERT) 25 mg Oral Tablet Take 1 tablet 3 times a day by oral route as needed. Active losartan (COZAAR) 100 mg Oral Tablet Take 1 tablet every day by oral route. Active FREESTYLE LANCETS 28 gauge Misc Misc 10/20/2024 Act aylin HUMULIN R U-500, CONC, KWIKPEN 500 unit/mL (3 mL) SubQ Insulin Pen Inject 140 Units under the skin 2 times daily. 12/04/2024 Active desvenlafaxine 50 mg Oral Tablet Sustained Release 24 hr Take 1 tablet every day by oral route. Active pantoprazole (PROTONIX) 40 mg Oral Tablet, Delayed Release (E.C.) Take 1 Tablet by mouth 2 times daily. For 1 month only 60 Tablet 01/20/2025 Active Active Problems Problem Noted Date Diagnosed [...] provider on discharge discussed Tobacco abuse 07/06/2015 Tenosynovitiszabrina Quervain 12/30/2012 Type 2 diabetes mellitus without complication [...] 01/19/2025 12:18 PM EDT Anesthesia Event [facility] [place] [address] Ekaterina Abraham MD Salyer, Corey L, APRN 01/19/2025 11:25 AM EDT - 01/19/2025 1:50 PM EDT Surgery [facility] [employer] [facility] [place] [address] Michael Hilliard MD PAROXYSMAL ATRIAL FIBRILLATION ABLATION WITH 3D MAPPING 01/19/2025 9:33 AM EDT - 01/20/2025 12:50 PM EDT Hospital [place] [address] Michael Hilliard MD Paroxysmal atrial fibrillation (HCC) Discharge Disposition: Home or Self Care 01/19/2025 Travel 01/04/2025 Orders Only [facility] [address] [place] [address] [place] [address] Michelle Bull APRN Paroxysmal atrial fibrillation (HCC) (Primary Dx) 01/04/2025 Telephone [facility] [address] [place] [address] [address] [place] [address] Michael Hilliard MD Procedure (Pre Procedure Instructions) 12/31/2024 2:00 PM EDT Office Visit [facility] [address] [place] [address] [address] [place] [address] Michael Hilliard MD Atrial fibrillation, unspecified type (HCC) (Primary Dx) 12/28/2024 Telephone [facility] [address] [facility] [address] [place] [address] Clare Cardenas, Clerical Staff Appointment Needed (SHEEP AND WHEAT FARMER appt ref by Dr. Selvin Bain) from [...] medical care, and heating? Somewhat hard 01/20/2025 [facility] of Occupat ional Health - Occupational Stress [...] get more. Never true 01/20/2025 [facility] Utilities Answer Date Recorded In the past 12 months has th e electric, gas, oil, or water company threatened to shut off services in your home? No 01/20/2025 [facility] HRSN [facility] IP Transportation Answer D ate Recorded In [...] Office Visit [facility] [address] [facility] [address] [place] [address] Jorgito Michelle, BLISTER PACKING MACHINE TENDER [address] [place] [address] Health Maintenance Due Date Last [...] 2024 COVID-19 Vaccine ( - season) 2024 08/17/2020, 07/20/2020 Influenza Vaccine (#1) 2024 Hemoglobin A1c 07/21/2025 01/20/2025, 09/23, 10/21/2018 [facility]: eGFR 01/20/2026 01/20/2025, 01/19/2025, 12/04/2023, Additional history exists Meningococcal B Vaccine Aged Out No l onger eligible based on patient's age to complete this topic Medical Devices Implanted Type Area Tappet Adjuster Device Identifier Shelf Expiration Date Model / Serial / Lot Matrix Tissue Strattice 6cm X 10cm Firm - [id number] Implanted:Qty: 1 on 12/09/2009 at [facility] Abdomen LIFECELL 09/22/2010 [id number] / / [id number] Mesh Marlex 6 X 6 #[id number] - [id number] Implanted:Qty: 1 on 04/04/2015 by Africa Gee [facility] N/A: Abdomen CR BARD:DAVOL 12/22/2018 [id number] / / [id number] Procedures Procedure Name Priority Date/Time Associated Diagnosis [...] 8:37 AM EDTThis note is in progress. [facility] Consult Note Name: Eliz Daniels : [...] consulted for hyperglycemia. She reports that she [id number] 140U bid with BG that typically run [...] 12 LEAD Result Date: 01/20/2025 [facility]:2025-01-19 Pat Name: ELIZ DANIELS Department: DEPIDPatient ID: [id number] Room: [facility] 2 Gender:Female Sheet Rock Hanger: HEIDY : [id number] By: MICHAEL Juarez Order Number: [id number] MD: Zackery Mcgraw MeasurementsIntervals [place] Rate: 84P: 64 [place]: 180QRS: -12 QRSD: 89 T: 59QT: 402 QTc: 476InterpretiveStatements SINUS RHYTHM PRWP NONSPECIFIC T-WAVE ABNORMALITY ElectronicallySigned On 01-20-2025 08:39:51 EDT by Zackery Mcgraw Results for orders placed during the hospital encounter of 01/19/25 EK EKG [address] [facility] Test Date: 2025-01-19 Pat Name: ELIZ DANIELS Department: DEPID Room: [facility] Gender: Female Sheet Rock Hanger: HEIDY : 1975 Requested By: MICHAEL Juarez Order Number: [id number] Reading MD: Zackery Mcgraw Measurements Intervals [place] Rate: 84 P: 64 [place]: 180 QRS: -12 QRSD: 89 T: 59 [...] ER (TOPROL-XL) 100 mg Oral Tablet Sustained [id number] hr multivitamin (THERAGRAN) Oral Tablet Take 1 [...] Transportation Needs: High Risk (09/26/2021) Received from [facility] Medicaid PRAPARE Survey 1.0 Has lack of transportation kept you from medical appointments, meetings,work, or from getting things needed for daily living? Check all thatapply.: Yes, it has kept me from medical appointments or from getting mymedications Housing Stability: Low Risk (09/26/2021) Received from [facility] Medicaid PRAPARE Survey 1.0 What is your [...] - 100 mg/dL 01/20/2025 10:22 AM EDT [facility] Sample Type Capillary 01/20/2025 10:22 AM EDT [facility] Patient Status Non-Critical Patient 01/20/2025 10:22 AM EDT [facility] Blood BLOOD SPECIMEN / Unknown 01/20/2025 10:20 AM EDT 01/20/2025 10:22 AM EDT Michael Hilliard MD POINT OF CARE TEST ORDERABLES Fi nal Result [facility] [address] [place] [id number] * ECG AND WAVEFORMS - TELEMETRY (01/20/2025 7:26 AM EDT) Only the most recent of3 resultswithin the time period is included. ECG INTERPRET NSR [facility] 01/20/2025 7:[address] [facility] - 01/20/2025 7:31 AM EDT ROUTINE (BS) [place] 0.19 QRS 0.08 RR 0.82 QT 0.44 QTc 0.49 See Clinical Report link for waveform capture us Unknown Provider POINT OF CARE CARDIOLOGY Final Result [facility] [address] [place] [address] * (ABNORMAL) CBC WITH DIFF [...] AM EDT [facility] Comment:Automated count of m etamyelocytes, myelocytes and promyelocytes. Lymph Percent 7.9 % 01/20/2025 7:29 AM EDT [facility] [place] Percent 7.1 % 01/20/2025 7:29 AM EDT [facility] Eos Percent 0.1 % 01/20/2025 7:29 AM EDT [facility] Baso Percent 0.4 % 01/20/2025 7:29 AM EDT [facility] Neut # 11.6(H) 1.6 - 6.1 x10(3)/mcL 01/20/2025 7:29 AM EDT [facility] Comment:Neutrophils equals s egs plus bands IMMGRAN# 0.1 0.0 - 0.1 x10(3)/mcL 01/20/2025 7:29 AM EDT [facility] Comment:Automated count of m etamyelocytes, myelocytes and promyelocytes. An absolute IG <0.1 is reported as 0.0. Lymph # 1.1(L) 1.2 - 3.9 x10(3)/mcL 01/20/2025 7:29 AM EDT [facility] [place] # 1.0(H) 0.3 - 0.9 x10(3)/mcL 01/20/2025 7:29 AM EDT [facility] Eos# 0.0 0.0 - 0.5 x10(3)/mcL 01/20/2025 7:29 AM EDT [facility] Baso # 0.1 0.0 - 0.1 x10(3)/mcL 01/20/2025 7:[address] [facility] Blood VENOUS BLOOD / Unknown Venipuncture / Unknown 01/20/2025 7:02 AM EDT 01/20/2025 7:14 AM EDT us Bg Garcia DO HEMATOLOGY ORDERABLES Final Result [facility] [address] [facility] , [place] [address] * (ABNORMAL) HEMOGLOBIN A1C (01/20/2025 7:02 AM EDT) Hgb A1C 8.9(H) 4.2 - 5.6 % 01/20/2025 7:[address] [facility] Est. Avg Glucose 209 mg/dL 01/20/2025 7:[address] [facility] [employer] [facility] Blood VENOUS BLOOD / Unknown Venipuncture / Unknown 01/20/2025 7:02 AM EDT 01/20/2025 7:14 AM EDT Narrative [facility] [facility] - 01/20/2025 7:52 AM EDT [...] CHEMISTRY ORDERABLES Final R esult [facility] [address] [facility] , [address] [place] [id number] * (ABNORMAL) BASIC METABOLIC PANEL (01/20/2025 7:02 AM EDT) Only the most recent of2 resultswithin the time period is included. Sodium 134(L) 136 - 145 mmol/L 01/20/2025 8:02 AM EDT [facility] Potassium 4.5 3.5 - 5.0 mmol/L 01/20/2025 8:02 AM EDT [facility] [facility] Chloride 97(L) 98 - 107 mmol/L 01/20/2025 8:[address] [facility] [employer] [facility] Total CO2 22 22 - 29 mmol/L 01/20/2025 8:[address] [facility] [employer] Anion Gap 15 7 - 16 mmol/L 01/20/2025 8:[address] [facility] [employer] [facility] Calcium 9.1 8.6 - 10.4 mg/dL 01/20/2025 8:02 AM EDT [facility] Glucose Lvl 337(H) 70 - 99 mg/dL 01/20/2025 8:02 AM EDT [facility] BUN 23(H) 6 - 20 mg/dL 01/20/2025 8:02 AM EDT [facility] Creatinine 1.17 0.51 - 1.30 mg/dL 01/20/2025 8:02 AM EDT [facility] eGFR (CKD-EPIcr 2020) 56(L) >=60 mL/min/1.7 3 m2 01/20/2025 8:02 AM EDT [facility] [employer] Comment:Estimated GFR was ca lculated using the CKD-EPIcr (2020) equation refit without race. The equation is recommended by the National Kidney Foundation - [place] Society of Nephrology Task Force. Blood VENOUS BLOOD / Unknown Venipuncture / Unknown 01/20/2025 7:02 AM EDT 01/20/2025 7:14 AM EDT us Bg Garcia DO CHEMISTRY ORDERABLES Final R esult [facility] [address] [facility] , [address] [place] [id number] * EK EKG 12 LEAD (01/19/2025 3:32 PM EDT) Anatomical Region Laterality Modality Electrocardiogra phy 01/19/2025 3:39 PM EDT Impressions 01/20/2025 8:40 AM EDT [facility] Test Date: 2025-01-19 Pat Name: ELIZ DANIELS Department: DEPID Room: [facility] 2 Gender: Female Sheet Rock Hanger: HEIDY : 1975 Requested By: MICHAEL Juarez Order Number: [id number] Gladys MD: Zackery Mcgraw Measurements Intervals [place] Rate: 84 P: 64 [place]: 180 QRS: -12 QRSD: 89 T: 59 QT: 402 QTc: 476 Interpretive Statements SINUS RHYTHM PRWP NONSPECIFIC T-WAVE ABNORMALITY Electronically Signed On 01-20-2025 08:39:51 EDT by Zackery Mcgraw Narrative Procedure Note Zackery Mcgraw MD - 01/20/[address] Test Date: 2025-01-19 Pat Name: ELIZ DANIELS Department: DEPID Room: [facility] Gender: Female Sheet Rock Hanger: HEIDY : 1975 Requested By: MICHAEL Juarez Order Number: [id number] Reading MD: Zackery Mcgraw Measurements Intervals [place] Rate: 84 P: 64 [place]: 180 QRS: -12 QRSD: 89 T: 59 [...] line for typical atrial flutter Procedure Details [facility] Electrophysiology Procedure [...] gained access in right femoral vein. A 9-Citizen Of [place] sheath for ICE, 8F sheath for CS [...] Sheaths inside the left atrium. Then a Hamilton- array catheter with deflectable curve was advanced into the sheath which was later exchanged to an irrigated ablation catheter. Using Hamilton- Array catheter and Carto navigation system a [...] ORDERABLES Fin al Result Performing Organization Address City/[facility]/ZIP Co de Phone Number [employer] CARDIOLOGY * (ABNORMAL) ACTIVATED CLOTTING TIME LR POC (01/19/2025 2:01 PM EDT) Only the most recent of3 resultswithin the time period is included. ACT-LR 326(H) 89 - 169 second(s) 01/19/2025 3:32 PM EDT [facility] Blood BLOOD SPECIMEN / Unknown 01/19/2025 2:01 PM EDT 01/19/2025 3:32 PM EDT us Michael Hilliard MD POINT OF CARE TEST ORDERABLES Fi nal Result Performing Organization Address [facility] de Phone Number [facility] [address] [place] [address] * INTRAOP AIRWAY PLACEMENT (01/19/2025 12:44 PM EDT) Narrative [facility] - 01/19/2025 12:44 PM EDT Michael [...] Atraumatic and Unchanged Insertion attempts: 1 Title: UPFITTER Ventilation: BMV Ekaterina Abraham MD [place] ANESTHESIA Edited Result - Final [facility] 1 [place] [address] * POCT EKG (12/31/2024 2:19 PM EDT) 12/31/2024 2:19 PM EDT Impressions [facility] - 12/31/2024 2:19 PM EDT NSR Low voltage QRS Michael Hilliard MD POINT OF CARE CARDIOLOGY Final R esult [facility] * (ABNORMAL) LIPID SCREEN (10/21/2018 5:57 AM EDT) Cholesterol 132 <=200 mg/dL 10/21/2018 9:01 AM EDT [facility] MD Comment: < 200 Desirable 200 - 239 Borderline High >= 240 High Triglyceride 158(H) <=150 mg/dL 10/21/2018 9:01 AM EDT [facility] Comment: < 150 Normal 150 - 199 Borderline High 200 - 499 High >= 500 Very High HDL 40 >=40 mg/dL 10/21/2018 9:01 AM EDT [facility] Comment: > 60 Optimal 40 - 60 Acceptable < 40 Low LDL Calculated 60 <=100 mg/dL 10/21/2018 9:01 AM EDT [facility] Comment: < 100 Optimal 100 - 129 Near or above optimal 130 - 159 Borderline High 160 - 189 High >= 190 Very High Non-HDL-C Calculated 92 <=129 mg/dL 10/21/2018 9:01 AM EDT [facility] Comment: <130 Desirable 130-159 Above Desirable 160-189 Borderline High 190-219 High >= 220 Very High Fasting Specimen? Yes None 019 9:01 AM EDT [facility] Blood VENOUS BLOOD / Unknown Venipuncture / Unknown 10/21/2018 5:57 AM EDT 10/21/2018 6:39 AM EDT Rocio Del Toro BLISTER PACKING MACHINE TENDER CHEMISTRY ORDERABLES Final Result [facility] [address] [facility] , [place] [address] from Last 3 Months or Most Recently Relevant to Health Maintenance Insurance [place] Advance Directives For more information, please contact: [phone] * Full Code (Latest Code Status on File) Date Activated Date Inactivated Comments 01/19/2025 8:00 PM 01/20/2025 5:01 PM * Full Code Date Activated Date Inactivated Comments 10/20/2018 11:25 PM 10/22/2018 7:12 PM * Full Code Date Activated Date Inactivated Comments 04/04/2015 5:16 PM 04/05/2015 6:42 PM Care Teams Cap Sewer Relationship Specialty Start Date End Date Carlos Dean MD PCP - General 11/08/09
--- OUTSIDE RECORDS SUMMARY | 2025-02-22 10:56 | XMS_ITS | Encounter Summary ---
Author Organization [place] [address] Care Team Providers Care Night Cleaner Name Role Phone Carlos Dean MD Primary Care Provider [phone] Reason for Visit * Reason Onset Date Comments Procedure 01/04/2025 Pre Procedure In structions Encounter Details Date Type Department Care Team (Late st Contact Info) Description 01/04/2025 Telephone [facility] [address] [facility] [address] [place] [address] Mahamed Hilliard MD [address] [place] [phone] Procedure (Pre Procedure Instructions) Social History [...] at OV as well as sent via [employer]. documented in this encounter Plan of Treatment Upcoming Encounters Date Type Department Care Team (Late st Contact Info) Description 03/08/2025 2:00 PM EST Office Visit [facility] [address] [facility] [address] [place] [address] Michelle Bull APRN [address] [place] [address] documented as of this encounter Visit Diagnoses Diagnosis Paroxysmal atrial fibrillation (HCC)- Primary Atrial fibrillation documented in this encounter Orders Procedures Count Last Ordered Date First Orde red Date SURGICAL/PROCEDURE CASE REQUEST 1 5 documented in this encounter Care Teams Night Cleaner Relationship Specialty Start Date End Date Carlos Dean MD PCP - General 11/08/09 documented as of this encounter
--- OUTSIDE RECORDS SUMMARY | 2025-02-22 10:56 | XMS_ITS | Encounter Summary ---
Author Organization [place] [address] Care Team Providers Care Virtual Customer Assistant Name Role Phone Carlos Dean MD Primary Care Provider [phone] Encounter Details Date Type Department Care Team (Late st Contact Info) Description 01/04/2025 Orders Only [facility] [address] [facility] [address] [place] [address] Michelle Bull APRN [address] [place], [place] [phone] Paroxysmal atrial fibrillation (HCC) (Primary Dx) Social [...] Visit [facility] [address] [facility] [address] [place] [address] Michelle Bull, ENERGY PROJECT MANAGER [address] [place] [address] documented as of this encounter Visit Diagnoses Diagnosis Paroxysmal atrial fibrillation (HCC)- Primary Atrial fibrillation documented in this encounter Care Teams Virtual Customer Assistant Relationship Specialty Start Date End Date Cralos Dean MD PCP - General 11/08/09 documented as of this encounter
== END 2025-02-17 23:59 ==
LOC: LAB.DROPOF 02-22 10:18
PROVIDERS: PCP Family Medicine; Visit Provider Family Medicine
DX: E78.2 Mixed hyperlipidemia (principal); I11.9 Hypertensive heart disease without heart failure; G89.28 Other chronic postprocedural pain
CPT/HCPCS: 80053; 80061; 85025